=== PATIENT | female | born 1945 | race Caucasian/White ===

== ENCOUNTER 2016-06-24 14:47 | Emergency (ER) | payer MEDICARE, BC ==
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
--- NOTE | 2016-06-24 19:59 | RAD ---
INDICATION: Fall onto face. COMPARISON: Comparison is made with a prior CT of the brain from April 14, 2016. TECHNIQUE: Contiguous axial sections of the brain were obtained from the skull base to the vertex without contrast. FINDINGS: The ventricles, cisterns and sulci are enlarged consistent with diffuse atrophy. There are multiple focal areas of decreased density in the subcortical and periventricular white matter suggestive of moderate chronic small vessel ischemic changes. In addition there appear to be findings consistent with old lacunar infarcts within the right lentiform nucleus. No other focal abnormalities or mass effect are seen. There is no evidence for hemorrhage. No significant focal osseous abnormality is seen. The visualized portion of the paranasal sinuses and mastoid air cells appear clear. IMPRESSION: 1. NO EVIDENCE FOR ACUTE INTRACRANIAL ABNORMALITY. 2. 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
--- NOTE | 2016-06-24 20:09 | RAD ---
INDICATION: Facial trauma. COMPARISON: There are no prior studies available for comparison. TECHNIQUE: Contiguous axial sections of the axial images of the facial bones were obtained and reconstructed in the coronal and sagittal planes. FINDINGS: Soft tissue swelling is noted anterior to the right frontal bone, nose, maxilla and mandible. The montez of the orbits and maxillary sinuses appear intact. The zygomatic arches appear intact. There is no evidence for a fracture of the mandible. There are small chip fracture fragments adjacent to the tips of the nasal bones, age indeterminate. These measure 1 to 2 mm in size. There is mild to moderate deviation of the nasal septum toward the left side. The pterygoid plates appear intact. There is mild mucosal thickening within the maxillary sinuses. The paranasal sinuses otherwise appear clear. IMPRESSION: THERE ARE SMALL CHIP FRACTURE FRAGMENTS ADJACENT TO THE TIPS OF THE NASAL BONES AGE INDETERMINATE.
--- NOTE | 2016-06-24 20:55 | RAD ---
INDICATION: Left hip injury. COMPARISON: Comparison is made with a prior x-ray study of the pelvis from July 12, 2015. TECHNIQUE: An AP view of the pelvis and frontal and lateral views of the left hip were obtained. FINDINGS: The bones are in normal alignment. No fracture is seen. There is mild to moderate osteoarthritic change in both hips. IMPRESSION: NO EVIDENCE FOR FRACTURE, IF THE PATIENT'S SYMPTOMS PERSIST RECOMMEND FOLLOW-UP IMAGING.
--- NOTE | 2016-06-24 20:56 | RAD ---
INDICATION: Left shoulder injury. TECHNIQUE: 3 views of the left shoulder were obtained. FINDINGS: The bones are osteopenic and in normal alignment. No fracture is seen. There is mild to moderate osteoarthritic change in the acromioclavicular and glenohumeral joint spaces. IMPRESSION: NO EVIDENCE OF FRACTURE.
[2016-06-24 21:43] VITALS: BP 158/87
== END 2016-06-24 21:41 | disposition home or self-care (01) ==
LOC: ED 14:47
DX: S09.90XA Unspecified injury of head, initial encounter (principal); S09.93XA Unspecified injury of face, initial encounter; M25.552 Pain in left hip; M25.512 Pain in left shoulder; W18.09XA Striking against other object with subsequent fall, initial encounter; Y92.9 Unspecified place or not applicable; E03.9 Hypothyroidism, unspecified; Z88.5 Allergy status to narcotic agent; Z86.718 Personal history of other venous thrombosis and embolism; Z79.01 Long term (current) use of anticoagulants; K21.9 Gastro-esophageal reflux disease without esophagitis; Z99.81 Dependence on supplemental oxygen; I12.9 Hypertensive chronic kidney disease with stage 1 through stage 4 chronic kidney disease, or unspecified chronic kidney disease; E11.22 Type 2 diabetes mellitus with diabetic chronic kidney disease; N18.3 Chronic kidney disease, stage 3 (moderate); F41.9 Anxiety disorder, unspecified; F32.9 Major depressive disorder, single episode, unspecified; Z85.3 Personal history of malignant neoplasm of breast; Z87.891 Personal history of nicotine dependence
CPT/HCPCS: 70450; 70486; 99282

== ENCOUNTER 2016-08-21 11:19 | Emergency (ER) | payer MEDICARE ==
[2016-08-21] MEDS ORDERED: NS 0.9% 1000 ML* 3,000 ML IV ONE (11:51)
[2016-08-21] MEDS ORDERED: Ondansetron INJ* 2 MG/ML VIAL IV ONE (11:51)
[2016-08-21 12:15] LABS: Hematocrit 33 % (35-47); Hemoglobin 10.9 g/dl (12.0-16.0); Mean Corpuscular HGB Conc 33 g/dl (31-36); Mean Corpuscular Hemoglobin 27 pg (27-31); Mean Corpuscular Volume 83 fL (80-97); Mean Platelet Volume 8 um3 (7.4-10.4); Red Cell Distribution Width 14 % (10.5-15); White Blood Count 9.1 10^3/ul (3.5-10.8)
[2016-08-21 12:26] LABS: Albumin 3.5 g/dL (3.2-5.2); BUN/Creatinine Ratio 24.6 (8-20); C Reactive Protein 16.09 mg/L (< 5.00); Calcium 9.7 mg/dL (8.6-10.3); EGFR African American 46.8 (>60); EGFR Non-African American 36.4 (>60); Globulin 3.5 g/dL (2-4); Total Bilirubin 0.3 mg/dL (0.2-1.0)
[2016-08-21 12:41] LABS: Potassium 4.2 mmol/L (3.5-5.0)
[2016-08-21] MEDS ORDERED: Iodixanol* (CONTRAST) 320 MG/ML 100 ML SDV IV ONE (13:20)
[2016-08-21 13:45] VITALS: BP 170/69
--- NOTE | 2016-08-21 13:55 | RAD ---
INDICATION: Abdominal pain, vomiting and diarrhea. COMPARISON: Comparison is made with a prior CT of the abdomen and pelvis from April 14, 2016. TECHNIQUE: A CT scan of the abdomen and pelvis was performed with intravenous and oral contrast following intravenous injection of 100 ml of Visipaque 320 nonionic contrast. Contiguous axial sections were obtained from the lung bases through the symphysis pubis. Images were reconstructed in the coronal and sagittal planes. FINDINGS: There is mild dependent bilateral lower lobe subsegmental atelectasis. No pleural effusion is present. The liver and spleen are normal in size without significant focal abnormality. The liver is decreased in attenuation consistent with fatty infiltration. The patient is status post cholecystectomy. The pancreas appears atrophic. There is a small cystic lesion present within the uncinate process of the pancreas measuring 1.1 cm in diameter and unchanged from the prior study. The kidneys and adrenal glands are normal in size. No hydronephrosis is seen. No significant focal renal abnormality is seen. The aorta is normal in caliber and demonstrates homogeneous contrast opacification. No significant enlarged retroperitoneal lymph nodes are seen. The stomach, small and large bowel appear nondistended. The patient is status post appendectomy by history. There is no evidence for diverticulitis or colitis. The uterus is anteverted and normal in size. No free intraperitoneal air or fluid is seen. No significant focal osseous abnormality is seen. IMPRESSION: 1. NO EVIDENCE FOR ACUTE FINDING OR CAUSE FOR THE PATIENT'S ABDOMINAL PAIN IS SEEN. 2. HEPATIC STEATOSIS. 3. STATUS POST CHOLECYSTECTOMY. 4. SMALL CYSTIC PANCREATIC LESION RECOMMEND A FOLLOW-UP CT OF THE ABDOMEN AND PELVIS WITH CONTRAST IN ONE YEAR'S TIME.
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
== END 2016-08-21 14:52 | disposition home or self-care (01) ==
LOC: ED 11:19
DX: K52.9 Noninfective gastroenteritis and colitis, unspecified (principal); R50.9 Fever, unspecified; R11.2 Nausea with vomiting, unspecified; R19.7 Diarrhea, unspecified; Z87.891 Personal history of nicotine dependence
CPT/HCPCS: 36415; 74177; 80053; 82150; 83605; 83690; 85025; 86140; 93005; 96374; 99283; J2405; Q9967

== ENCOUNTER 2016-10-22 18:21 | Emergency (ER) | payer MEDICARE ==
[2016-10-22] MEDS ORDERED: NS 0.9% 1000 ML* 1,000 ML IV ONE ×2 (18:47→20:47)
[2016-10-22 18:54] LABS: Hematocrit 31 % (35-47); Hemoglobin 10.1 g/dl (12.0-16.0); Mean Corpuscular HGB Conc 33 g/dl (31-36); Mean Corpuscular Hemoglobin 28 pg (27-31); Mean Corpuscular Volume 84 fL (80-97); Mean Platelet Volume 8 um3 (7.4-10.4); Red Blood Count 3.62 10^6/ul (4.0-5.4); Red Cell Distribution Width 14 % (10.5-15); White Blood Count 7.7 10^3/ul (3.5-10.8)
[2016-10-22] MEDS ORDERED: Morphine INJ* 4 MG/ML 1 ML SYRINGE IV ONE (19:02)
[2016-10-22] MEDS ORDERED: Ondansetron INJ* 2 MG/ML VIAL IV ONE (19:02)
[2016-10-22 19:07] LABS: Albumin 3.7 g/dL (3.2-5.2); BUN/Creatinine Ratio 19.1 (8-20); C Reactive Protein 11.68 mg/L (< 5.00); Calcium 9.6 mg/dL (8.6-10.3); EGFR African American 41.6 (>60); EGFR Non-African American 32.4 (>60); Globulin 3.1 g/dL (2-4); Potassium 3.7 mmol/L (3.5-5.0); Total Bilirubin 0.3 mg/dL (0.2-1.0); Total Protein 6.8 g/dL (6.4-8.9)
--- NOTE | 2016-10-22 19:42 | RAD ---
CLINICAL HISTORY: Flank pain, right flank pain COMPARISON: August 21, 2016 TECHNIQUE: Multiple contiguous axial CT scans were obtained of the abdomen and pelvis, without intravenous contrast enhancement. Coronal and sagittal multiplanar reformations are submitted for review. Additionally axial CT images are submitted of the lumbar spine with coronal and sagittal multiplanar reformations. FINDINGS: The study is limited by the lack of intravenous contrast. This limits evaluation of the solid organs and vasculature. LUNG BASES: The lung bases are clear. LIVER: The liver is normal in shape, size, contour, and attenuation. BILE DUCTS: There is no intrahepatic or extrahepatic biliary dilatation. GALLBLADDER: The gallbladder is not visualized. Surgical clips are noted in the gallbladder fossa. PANCREAS: Again noted is a small cystic lesion of the head of the pancreas. There is atrophy of the pancreas. There is no appreciable pancreatic ductal dilatation SPLEEN: Normal in size and appearance. UPPER GI TRACT: Evaluation of the gastrointestinal tract is limited by incomplete gastric distention. The upper GI tract is unremarkable. SMALL BOWEL AND MESENTERY: The small bowel is normal in contour, course, and caliber. There is no obstruction or dilatation. COLON: There are scattered diverticula of the colon ADRENALS: Normal bilaterally. KIDNEYS: There is a punctate, 0.2 cm calculus of the distal right ureter best seen on coronal image 73 and axial image 63. There is no appreciable hydronephrosis. BLADDER: The bladder is smooth in contour. PELVIC ORGANS: The uterus and adnexa are grossly normal for technique. AORTA: The aorta is normal. IVC: Unremarkable LYMPH NODES: There is no lymphadenopathy by size criteria. ABDOMINAL WALL: There is no evidence for abdominal wall hernia. BONES AND SOFT TISSUES: The alignment is normal. There is multilevel anterolateral marginal osteophyte formation. The vertebral bodies are preserved in height. There is diffuse facet hypertrophic change. There is mild to moderate multilevel neural foraminal narrowing. There is moderate narrowing of the central canal at L3-L4 and L4-L5 with mild narrowing at L2-L3 OTHER: None IMPRESSION: 1. PUNCTATE DISTAL RIGHT URETERAL STONE WITHOUT HYDRONEPHROSIS. 2. DEGENERATIVE DISC DISEASE AND OSTEOARTHRITIS. THERE IS MODERATE NARROWING OF THE CENTRAL CANAL AT L3-L4 AND L4-L5 WITH MILD NARROWING AT L2-L3. 3. AGAIN NOTED IS A SMALL CYSTIC LESION OF THE HEAD OF THE PANCREAS. 4. SCATTERED DIVERTICULA OF THE COLON.
[2016-10-22 21:04] LABS: Urine Bacteria Absent (Absent); Urine Bilirubin Negative (Negative); Urine Glucose 3+(>=500 mg/dL) (Negative); Urine Nitrite Negative (Negative)
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
--- NOTE | 2016-10-23 00:26 | ED ---
Darek Lopes Aidan, scribed for Aaron Oden on 10/22/16 at 2323 . Progress - Progress Note Progress Note: The patient's first lactic acid reading was 2.2 (high). Her second lacic acid reading was 1.3. Re-Evaluation - Re-Evaluation First Eval Re-Evaluation Time: 20:48 Change: Unchanged Comment: Lactic acid high. Will give 1L fluid and repeat lactic. Still waiting on UA. Course/Dx - Course Course Of Treatment: 70 yo female well appearing with right flank pain. has a non obstructing punctate stone on rt with a urinary tract infection. her initial lactic acid was mildly elevated with no wbc, or abnormal vital signs. She is being hydrated and antibiotics are being infused and a 2nd lactic acid will be drawn, her pain was easily managed with low dose morphine. the plan is for discharge if her repeat lactic acid is normal and she will go with percocet and cipro at her pharmacy. If her condition worsens or her lactic acid remains elevated she will be admitted. the case has been discussed with Dr. Pillai and the patient has been signed out to Dr. Oden - Diagnoses Provider Diagnoses: UTI (urinary tract infection), Kidney stone on right side The documentation as recorded by the Darek khan Aidan accurately reflects the service I personally performed and the decisions made by Akshat funez Emmanuel.
[2016-10-23 03:38] VITALS: BP 183/93
== END 2016-10-23 01:00 ==
LOC: ED 18:21
DX: N20.0 Calculus of kidney (principal); N39.0 Urinary tract infection, site not specified
CPT/HCPCS: 36415; 72131; 74176; 80053; 81003; 81015; 83605; 83690; 85025; 86140; 87086; 93005; 96374; 96375; 99283; J0696; J2270; J2405

== ENCOUNTER → 2016-10-29 17:54 | Emergency (ER) | payer MEDICARE ==
[~2016-10-29 17:54] MED LIST: Insulin LISPRO* 1 UNITS UNIT SUBCUT ONE; Insulin NPH(*) 1 UNITS UNIT SUBCUT ONE; oxyCODONE/Acetamin 5/325 MG* TAB PO ONE
[2016-10-29 19:33] VITALS: BP 154/72
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
== END | disposition home or self-care (01) ==
LOC: ED 17:54
DX: N20.1 Calculus of ureter (principal); R10.84 Generalized abdominal pain; R30.0 Dysuria; Z87.891 Personal history of nicotine dependence
CPT/HCPCS: 99282; A9270-GY

== ENCOUNTER 2017-01-09 23:36 | Emergency (ER) | payer MEDICARE ==
[2017-01-10 00:35] LABS: Hematocrit 32 % (35-47); Hemoglobin 10.7 g/dl (12.0-16.0); Mean Corpuscular HGB Conc 33 g/dl (31-36); Mean Corpuscular Hemoglobin 29 pg (27-31); Mean Corpuscular Volume 88 fL (80-97); Mean Platelet Volume 8 um3 (7.4-10.4); Red Blood Count 3.69 10^6/ul (4.0-5.4); Red Cell Distribution Width 15 % (10.5-15); White Blood Count 8.4 10^3/ul (3.5-10.8)
[2017-01-10 00:46] LABS: BUN/Creatinine Ratio 19.1 (8-20); Calcium 9.9 mg/dL (8.6-10.3); EGFR African American 34.8 (>60); EGFR Non-African American 27.1 (>60); Globulin 3.1 g/dL (2-4); Potassium 3.9 mmol/L (3.5-5.0); Total Bilirubin 0.3 mg/dL (0.2-1.0); Total Protein 7.1 g/dL (6.4-8.9)
[2017-01-10 00:47] LABS: Troponin I 0.02 ng/mL (<0.04)
[2017-01-10] MEDS: NS 0.9% 1000 ML* 2,000 ML IV ONE ×2 (00:47→00:48)
[2017-01-10] MEDS ORDERED: Insulin REGULAR(*) 1 UNITS UNIT IV PUSH ONE (00:54)
[2017-01-10] MEDS ORDERED: NS 0.9% 1000 ML* 1,000 ML IV ONE (00:55)
[2017-01-10 01:08] LABS: TSH (Thyroid Stimulating Horm) 3.79 mcIU/mL (0.34-5.60)
[2017-01-10 02:13] LABS: Budding Yeast Present (Absent); Urine Bacteria Absent (Absent); Urine Bilirubin Negative (Negative); Urine Glucose 3+(>=500 mg/dL) (Negative); Urine Nitrite Negative (Negative)
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
[2017-01-10] MEDS ORDERED: oxyCODONE/Acetamin 5/325 MG* TAB PO ONE (06:18)
[2017-01-10 06:46] VITALS: BP 166/150
--- NOTE | 2017-01-10 07:58 | RAD ---
Indication: Syncope; fall. Comparison: October 22, [address] and April 17, 2016 chest radiograph. Technique: Upright AP 0020 hours Report: Accounting for large body habitus with superimposed soft tissues the lungs and pleural spaces are grossly clear. Negative for pneumothorax. Negative for cardiomegaly accounting for portable AP technique. Unremarkable central pulmonary vasculature and mediastinal contours. IMPRESSION: No evidence for acute intrathoracic disease.
--- NOTE | 2017-01-10 08:01 | RAD ---
Indication: Syncope. Anticoagulated. Comparison: June 24, 2016 CT. Technique: Noncontrast CT vertex of skull through foramen magnum. Report: Severe prominence of the cerebral sulci and moderate prominence of the cerebellar fissures reflecting atrophy. Proportional enlargement of the ventricles. Unremarkable basal cisterns. Decreased density in the periventricular and subcortical white matter while non-specific is most likely due to chronic microangiopathy. Negative for kent matter white matter obscuration, intra or extra-axial hemorrhage, or mass effect. The visualized orbits are without evidence for hematoma. Negative for calvarial or skull base fracture. Clear visualized paranasal sinuses and mastoid air spaces. Negative for scalp hematoma. IMPRESSION: 1. No evidence for traumatic brain injury or acute intracranial process. 2. Advanced involutional change and stigmata of chronic small vessel ischemic disease.
--- NOTE | 2017-01-10 08:03 | RAD ---
Indication: RIGHT hip pain post fall. Dizziness. Comparison: June 24, 2016 Technique: AP pelvis and AP and frog-leg lateral views RIGHT hip. Report: The RIGHT hip is normally located. No fracture of the RIGHT proximal femur or pelvis evident. Negative for pelvic joint diastases. Mild osteophytic lipping at the hips without significant joint space narrowing. Unremarkable soft tissue contours accounting for obese body habitus. IMPRESSION: 1. No radiographic evidence for RIGHT hip fracture. As x-rays may be negative with nondisplaced hip fracture if there is persistent clinical concern MRI or in setting of contraindication to MRI or limitation in emergent access to MRI CT would be suggested. 2. 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
== END 2017-01-10 06:45 | disposition home or self-care (01) ==
LOC: ED 23:36
DX: E11.65 Type 2 diabetes mellitus with hyperglycemia (principal); S00.93XA Contusion of unspecified part of head, initial encounter; S70.01XA Contusion of right hip, initial encounter; W19.XXXA Unspecified fall, initial encounter; Z91.81 History of falling; Y93.9 Activity, unspecified; Y92.9 Unspecified place or not applicable; E03.9 Hypothyroidism, unspecified; I10 Essential (primary) hypertension; J45.909 Unspecified asthma, uncomplicated; K21.9 Gastro-esophageal reflux disease without esophagitis; F41.9 Anxiety disorder, unspecified; F32.9 Major depressive disorder, single episode, unspecified; Z86.718 Personal history of other venous thrombosis and embolism; Z87.891 Personal history of nicotine dependence
CPT/HCPCS: 36415; 70450; 71010; 80053; 81003; 81015; 82550; 83605; 83735; 84443; 84484; 85025; 85610; 85730; 87086; 87106; 93005; 96360; 96361; 99283; A9270-GY

== ENCOUNTER 2017-01-12 16:23 | Emergency (ER) | payer MEDICARE ==
[2017-01-12] MEDS ORDERED: NS 0.9% 1000 ML* 1,000 ML IV SCH (16:45)
[2017-01-12 16:49] LABS: Hematocrit 30 % (35-47); Hemoglobin 10.2 g/dl (12.0-16.0); Mean Corpuscular HGB Conc 34 g/dl (31-36); Mean Corpuscular Hemoglobin 29 pg (27-31); Mean Corpuscular Volume 87 fL (80-97); Mean Platelet Volume 7 um3 (7.4-10.4); Red Blood Count 3.51 10^6/ul (4.0-5.4); Red Cell Distribution Width 15 % (10.5-15); White Blood Count 8.7 10^3/ul (3.5-10.8)
[2017-01-12 17:05] LABS: Troponin I 0.03 ng/mL (<0.04)
[2017-01-12 17:06] LABS: Albumin 3.3 g/dL (3.2-5.2); BUN/Creatinine Ratio 19.8 (8-20); C Reactive Protein 23.95 mg/L (< 5.00); Calcium 9.8 mg/dL (8.6-10.3); EGFR African American 53.5 (>60); EGFR Non-African American 41.6 (>60); Globulin 3.1 g/dL (2-4); Magnesium 1.5 mg/dL (1.9-2.7); Potassium 3.7 mmol/L (3.5-5.0); Total Bilirubin 0.5 mg/dL (0.2-1.0); Total Protein 6.4 g/dL (6.4-8.9)
--- NOTE | 2017-01-12 17:32 | RAD ---
HISTORY: Weakness COMPARISONS: January 09, 2017 VIEWS:1: Single frontal portable view of the chest at 4:54 PM FINDINGS: LINES AND TUBES: None. CARDIOMEDIASTINAL SILHOUETTE: The cardiomediastinal silhouette is normal for portable technique. PLEURA: The costophrenic angles are sharp. No pleural abnormalities are noted. LUNG PARENCHYMA: The lungs are clear. ABDOMEN: The upper abdomen is clear. There is no subphrenic gas. BONES AND SOFT TISSUES: Degenerative changes are noted of the spine IMPRESSION: NO ACTIVE CARDIOPULMONARY DISEASE.
--- NOTE | 2017-01-12 17:34 | RAD ---
HISTORY: Weakness, dizziness, syncope, left great toe injury and redness COMPARISONS: January 09, 2017 VIEWS: 3, Frontal, lateral, and oblique views of the left foot FINDINGS: BONE DENSITY: There is diffuse osteopenia. BONES: There are faint linear lucencies of the proximal phalanges of the first and second digits There are calcaneal enthesophytes. JOINTS: There is mild osteoarthritis of the midfoot and forefoot ALIGNMENT: There is no dislocation. SOFT TISSUES: Unremarkable. OTHER FINDINGS: None. IMPRESSION: OSTEOPENIA. QUESTIONABLE NONDISPLACED FRACTURES OF THE PROXIMAL PHALANGES OF THE FIRST AND SECOND DIGITS.
[2017-01-12 17:36] LABS: TSH (Thyroid Stimulating Horm) 3.84 mcIU/mL (0.34-5.60)
[2017-01-12] MEDS ORDERED: Insulin REGULAR(*) 1 UNITS UNIT SUBCUT ONE (19:22)
[2017-01-12] MEDS ORDERED: cloNIDine TAB* 0.1 MG PO ONE (19:58)
[2017-01-12] MEDS ORDERED: cloNIDine TAB* 0.1 MG ONE (20:01)
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
[2017-01-12] MEDS ORDERED: Acetaminophen TAB* 325 MG PO ONE (22:33)
[2017-01-12 23:23] LABS: Budding Yeast Present (Absent); Urine Bacteria Absent (Absent); Urine Bilirubin Negative (Negative); Urine Glucose 3+(>=500 mg/dL) (Negative); Urine Nitrite Negative (Negative)
[2017-01-12] MEDS ORDERED: Levofloxacin 250 MG IVPREMX(*) 250 MG/50 ML BAG IVPB ONE (23:34)
[2017-01-13] MEDS ORDERED: oxyCODONE/Acetamin 5/325 MG* TAB PO ONE (01:14)
[2017-01-13 01:16] VITALS: BP 164/78
== END 2017-01-13 01:20 | disposition home or self-care (01) ==
LOC: ED 16:23
DX: N39.0 Urinary tract infection, site not specified (principal); I10 Essential (primary) hypertension; Z87.891 Personal history of nicotine dependence
CPT/HCPCS: 36415; 71010; 80053; 81003; 81015; 83605; 83690; 83735; 83880; 84443; 84484; 85025; 85610; 85730; 86140; 87040; 87086; 96360; 99284; A9270-GY; J1956

== ENCOUNTER → 2017-01-16 | Emergency (ER) | payer MEDICARE ==
[~2017-01-16] MED LIST changes: +Acetaminophen SUPP* 650 MG SUPP PR ONE; -Insulin LISPRO* 1 UNITS UNIT SUBCUT ONE; -Insulin NPH(*) 1 UNITS UNIT SUBCUT ONE; +Insulin REGULAR(*) 1 UNITS UNIT SUBCUT ONE; +LORazepam INJ* 2 MG/ML 1 ML VIAL IM ONE; +LORazepam INJ* 2 MG/ML 1 ML VIAL ONE; +NS 0.9% 1000 ML* 3,000 ML IV ONE; +NS 0.9% 250 ML* 250 ML ONE; +Propofol* 10 MG/ML 20 ML BTL IV PUSH ONE; +Propofol* 100 ML ONE; +Propofol* 500 MG/50 ML BTL IV SCH; +Succinylcholine* 20 MG/ML 10 ML VIAL IV ONE; +Vancomycin(*) 1,250 MG in NS 0.9% 250 ML* 250 ML IVPB ONE; +fentaNYL PCA* 20 ML PCA ONE; +fentaNYL* 50 MCG/ML 2 ML VIAL (100 MCG VIAL) IV SLOW PU ONE; -oxyCODONE/Acetamin 5/325 MG* TAB PO ONE
[2017-01-16 05:54] LABS: Hematocrit 34 % (35-47); Hemoglobin 11.2 g/dl (12.0-16.0); Mean Corpuscular HGB Conc 33 g/dl (31-36); Mean Corpuscular Hemoglobin 29 pg (27-31); Mean Corpuscular Volume 87 fL (80-97); Mean Platelet Volume 8 um3 (7.4-10.4); Red Blood Count 3.85 10^6/ul (4.0-5.4); Red Cell Distribution Width 15 % (10.5-15); White Blood Count 16.9 10^3/ul (3.5-10.8)
[2017-01-16 06:06] LABS: ALT 20 U/L (7-52); Albumin 3.7 g/dL (3.2-5.2); Alkaline Phosphatase 89 U/L (34-104); Blood Urea Nitrogen 29 mg/dL (6-24); CO2 Carbon Dioxide 24 mmol/L (22-32); Calcium 9.7 mg/dL (8.6-10.3); Chloride 97 mmol/L (101-111); Creatine Kinase 507 U/L (10-223); EGFR African American 42.8 (>60); EGFR Non-African American 33.3 (>60); Globulin 3.5 g/dL (2-4); Glucose 305 mg/dL (70-100); Magnesium 1.5 mg/dL (1.9-2.7); Sodium 133 mmol/L (133-145); Total Protein 7.2 g/dL (6.4-8.9)
[2017-01-16 06:16] LABS: TSH (Thyroid Stimulating Horm) 5.11 mcIU/mL (0.34-5.60)
[2017-01-16 06:26] LABS: Troponin I 0.04 ng/mL (<0.04)
[2017-01-16 06:27] LABS: Anion Gap 12 mmol/L (2-11)
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
[2017-01-16 07:04] LABS: Budding Yeast Present (Absent); Urine Bacteria Absent (Absent); Urine Bilirubin Negative (Negative); Urine Glucose 3+(>=500 mg/dL) (Negative); Urine Nitrite Negative (Negative)
--- NOTE | 2017-01-16 08:10 | RAD ---
HISTORY: Fever COMPARISONS: January 12, 2017 VIEWS:1: Single frontal portable view of the chest at 7:10 AM FINDINGS: LINES AND TUBES: None. CARDIOMEDIASTINAL SILHOUETTE: The cardiomediastinal silhouette is normal for portable technique. PLEURA: The costophrenic angles are sharp. No pleural abnormalities are noted. LUNG PARENCHYMA: There is patchy alveolar opacification of the right lung base at the cardiophrenic angle. ABDOMEN: The upper abdomen is clear. There is no subphrenic gas. BONES AND SOFT TISSUES: No bone or soft tissue abnormalities are noted. IMPRESSION: PATCHY RIGHT BASILAR ATELECTASIS VERSUS EARLY CONSOLIDATION
[2017-01-16 08:11] LABS: Alcohol < 10 mg/dL (<10)
--- NOTE | 2017-01-16 08:18 | RAD ---
HISTORY: Altered mental status, head injury COMPARISONS: January 10, 2017 Liver: The liver some of the subcortical and the pull-through the TECHNIQUE: Multiple contiguous axial CT scans were obtained of the head without intravenous contrast. FINDINGS: HEMORRHAGE/INFARCT: There is a small focus of hyperattenuation along a sulcus of the medial parafalcine left frontal lobe best seen on axial image 13 of series 2. Elsewhere, there is no hemorrhage or acute infarct. MASSES/SHIFT: There is no mass or shift. EXTRA-AXIAL SPACES: As noted above, there is minimal possible subarachnoid hemorrhage of the left frontal lobe. SULCI AND VENTRICLES: There is diffuse and proportional enlargement of the sulci and ventricles. CEREBRUM: There is hypoattenuation of the periventricular and subcortical white matter. BRAINSTEM: There are no focal parenchymal abnormalities. CEREBELLUM: There are no focal parenchymal abnormalities. VESSELS: The vessels are grossly normal. PARANASAL SINUSES: There is an air-fluid level within the left maxillary sinus. ORBITS: The orbits are unremarkable. BONES AND SOFT TISSUE: There is soft tissue swelling along the left parietal scalp. OTHER: None IMPRESSION: 1. THERE IS SMALL FOCUS OF HYPERATTENUATION ALONG THE LEFT MEDIAL FRONTAL LOBE. GIVEN THE HISTORY OF TRAUMA, THIS MAY REPRESENT A TINY FOCUS OF SUBARACHNOID HEMORRHAGE. THIS IS NONANEURYSMAL IN PATTERN.. 2. DIFFUSE INVOLUTIONAL CHANGE WITH CHRONIC SMALL VESSEL ISCHEMIC CHANGES. PRELIMINARY FINDINGS WERE DISCUSSED WITH DR. BELL IN THE EMERGENCY DEPARTMENT AT APPROXIMATELY 8:13 AM ON JANUARY 16, 2017.
[2017-01-16 08:20] LABS: Venous Bicarbonate HCO3 25.3 mmol/L (24-28)
--- NOTE | 2017-01-16 08:40 | RAD ---
CLINICAL HISTORY: Fall, bleed, altered mental status, ecchymosis of the left hip, sepsis COMPARISON: October 22, 2016 TECHNIQUE: Multiple contiguous axial CT scans were obtained of the abdomen and pelvis, without intravenous contrast enhancement. Coronal and sagittal multiplanar reformations are submitted for review. Oral contrast was not administered. FINDINGS: The study is limited by the lack of intravenous contrast. This limits evaluation of the solid organs and vasculature. LUNG BASES: The lung bases are clear. LIVER: There is heterogeneous hypoattenuation of the inferior margin of the right lobe of liver. This is not clearly visualized on the previous examination. This is best seen on coronal image 39 and measures approximately 3.2 cm in size. BILE DUCTS: There is no intrahepatic or extrahepatic biliary dilatation. GALLBLADDER: The gallbladder is not visualized. Surgical clips are noted in the gallbladder fossa. PANCREAS: The pancreas is atrophic. Again noted is a small cystic lesion of the head of the pancreas, stable SPLEEN: Normal in size and appearance. UPPER GI TRACT: Evaluation of the gastrointestinal tract is limited by incomplete gastric distention. There is a small diverticulum of the second stage of the duodenum. SMALL BOWEL AND MESENTERY: The small bowel is normal in contour, course, and caliber. There is no obstruction or dilatation. COLON: The colon is normal in contour, course, caliber. There is no pericolonic inflammatory change. ADRENALS: Normal bilaterally. KIDNEYS: The kidneys are normal in shape, size, contour, and axis. There is no hydronephrosis or nephrolithiasis. BLADDER: The bladder is smooth in contour. PELVIC ORGANS: The uterus and adnexa are grossly normal for technique. AORTA: The aorta is normal. IVC: Unremarkable LYMPH NODES: There is no lymphadenopathy by size criteria. ABDOMINAL WALL: There is no evidence for abdominal wall hernia. BONES AND SOFT TISSUES: There is osteoarthritis of the hips and SI joints. Degenerative changes are noted of the spine. There is a nondisplaced fracture of the left transverse process of L3. There is diffuse edema of the proximal left thigh OTHER: None IMPRESSION: 1. NONDISPLACED FRACTURE OF THE LEFT TRANSVERSE PROCESS OF L3. 2. THERE IS HYPOATTENUATION OF THE INFERIOR MARGIN OF THE RIGHT LOBE OF LIVER, NOT CLEARLY SEEN ON THE PREVIOUS EXAMINATION. THE IMAGING APPEARANCE IS INDETERMINATE, THOUGH HEPATIC NEOPLASM IS WITHIN THE DIFFERENTIAL. RECOMMEND CONSIDERATION OF FURTHER EVALUATION WITH CONTRAST-ENHANCED MULTIPHASE LIVER PROTOCOL CT OR CONTRAST-ENHANCED MRI OF THE ABDOMEN IN THE NONACUTE SETTING.
--- NOTE | 2017-01-16 08:52 | RAD ---
HISTORY: Fall, bleed, altered mental status COMPARISONS: July 12, 2015 TECHNIQUE: Multiple contiguous axial CT scans were obtained of the cervical spine without intravenous contrast, with coronal and sagittal multiplanar reformations. FINDINGS: BRAIN: The visualized brain is unremarkable CENTRAL CANAL: Evaluation of the central canal is limited on CT technique; however, there is no obvious canalicular mass or epidural hemorrhage. ALIGNMENT: The alignment is normal, without subluxation or dislocation. 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 There is no displaced fracture. There is multilevel anterolateral marginal osteophyte formation. JOINTS: There is osteoarthritis of the uncovertebral and facet joints. MUSCULATURE: Unremarkable INTERVERTEBRAL DISCS: There is diffuse loss of intervertebral disc height. AXIAL IMAGES: C2-C3: There is partial fusion across the facet joints. There is no osseous neural foraminal or central canal stenosis. C3-C4: There is bilateral vertebral and facet hypertrophy. There is severe left and moderate right neural foraminal narrowing. There is mild narrowing of the central canal. C4-C5: There is a broad-based disc bulge. There is mild narrowing of the central canal. There is no osseous neural foraminal narrowing. C5-C6: There is bilateral uncovertebral and facet hypertrophy. There is moderate left and mild right neural foraminal narrowing. There is no osseous central canal stenosis. C6-C7: There is a broad-based disc osteophyte complex with right greater than left uncovertebral hypertrophy. There is mild bilateral neural foraminal narrowing. There is moderate narrowing of the central canal. C7-T1: There is bilateral facet hypertrophy. There is mild bilateral neural foraminal narrowing. There is no osseous central canal stenosis. SOFT TISSUES: The visualized soft tissues of the neck are unremarkable. The prevertebral fat stripe is preserved. OTHER: None. IMPRESSION: 1. DEGENERATIVE DISC DISEASE AND OSTEOARTHRITIS NOTED ABOVE. 2. NO ACUTE OSSEOUS INJURY TO THE CERVICAL SPINE.
[2017-01-16] MEDS: Vancomycin(*) 1,500 MG in NS 0.9% 250 ML* 250 ML IVPB ONE ×2 (10:04→10:38)
--- NOTE | 2017-01-16 10:25 | RAD ---
HISTORY: Status post intubation COMPARISONS: January 16, 2017 at 7:10 AM VIEWS:1: Single frontal portable view of the chest at 10:10 AM FINDINGS: LINES AND TUBES: The endotracheal tube is noted with the tip overlying the trachea just proximal to the clavicles. CARDIOMEDIASTINAL SILHOUETTE: The cardiomediastinal silhouette is normal for portable technique. PLEURA: The costophrenic angles are sharp. No pleural abnormalities are noted. LUNG PARENCHYMA: There is improved aeration of the right lung base. ABDOMEN: The upper abdomen is clear. There is no subphrenic gas. BONES AND SOFT TISSUES: No bone or soft tissue abnormalities are noted. IMPRESSION: LINES AND TUBES ABOVE. NO ACTIVE CARDIOPULMONARY DISEASE.
--- NOTE | 2017-01-16 11:35 | ED ---
Louie Lopes Alfonso, scribed for Blane Sauceda MD on 01/16/17 at 0821 . Progress - Progress Note Progress Note: This patient is a 71 year old F [facility] with [facility] She was found at her home agitated and screaming. Reevaluation at 0801: Fever. Dry oral mucosa. Large left hip ecchymosis. Feet are dirty. No FND. Patient is grunting. Patient is nonverbal. Per an admission at [facility] on 04/13/16 the patient is Full Code status. Dr. Phyllis Chaparro (Radiologist) called the ED at 0813 to follow up on a CT brain interpretation. Revaluated at 1010: The patient is comfortable on the ventilator. Asked respiratory to advance the tube. - Results/Orders Results/Orders: CXR reveals PATCHY RIGHT BASILAR ATELECTASIS VERSUS EARLY CONSOLIDATION. ED physician has reviewed this radiology report and agrees. CT Brain reveals [employer] FINDINGS: There is a very tiny 3 mm hyperdensity seen on a single slight () in the left anterior parafalcine cortex. It cannot be detected on either the June 24, 2016 and were on January 10 scan. Although it is very small, it needs to be considered tiny amount of subarachnoid blood or contusion until proven otherwise and a followup CT is recommended. No other evidence of hemorrhage. Chronic microvascular changes in the cerebral white matter. No visible acute infarct. Osseous structures are intact. ED physician has reviewed this radiology report and agrees. Dr. Chaparro IMPRESSION: 1. THERE IS SMALL FOCUS OF HYPERATTENUATION ALONG THE LEFT MEDIAL FRONTAL LOBE. GIVEN THE HISTORY OF TRAUMA, THIS MAY REPRESENT A TINY FOCUS OF SUBARACHNOID HEMORRHAGE. THIS IS NONANEURYSMAL IN PATTERN.. 2. DIFFUSE INVOLUTIONAL CHANGE WITH CHRONIC SMALL VESSEL ISCHEMIC CHANGES. ED physician has reviewed this radiology report and agrees. CT C-Spine reveals 1. DEGENERATIVE DISC DISEASE AND OSTEOARTHRITIS NOTED ABOVE. 2. NO ACUTE OSSEOUS INJURY TO THE CERVICAL SPINE. ED physician has reviewed this radiology report and agrees. CT A/P reveals 1. NONDISPLACED FRACTURE OF THE LEFT TRANSVERSE PROCESS OF L3. 2. THERE IS HYPOATTENUATION OF THE INFERIOR MARGIN OF THE RIGHT LOBE OF LIVER, NOT CLEARLY SEEN ON THE PREVIOUS EXAMINATION. THE IMAGING APPEARANCE IS INDETERMINATE, THOUGH HEPATIC NEOPLASM IS WITHIN THE DIFFERENTIAL. RECOMMEND CONSIDERATION OF FURTHER EVALUATION WITH CONTRAST-ENHANCED MULTIPHASE LIVER PROTOCOL CT OR CONTRAST-ENHANCED MRI OF THE ABDOMEN IN THE NONACUTE SETTING. ED physician has reviewed this radiology report and agrees. CXR reveals LINES AND TUBES: The endotracheal tube is noted with the tip overlying the trachea just proximal to the clavicles. CARDIOMEDIASTINAL SILHOUETTE: The cardiomediastinal silhouette is normal for portable technique. PLEURA: The costophrenic angles are sharp. No pleural abnormalities are noted. LUNG PARENCHYMA: There is improved aeration of the right lung base. ABDOMEN: The upper abdomen is clear. There is no subphrenic gas. BONES AND SOFT TISSUES: No bone or soft tissue abnormalities are noted. IMPRESSION: LINES AND TUBES ABOVE. NO ACTIVE CARDIOPULMONARY DISEASE. ED physician has reviewed this radiology report and agrees. Re-Evaluation - Re-Evaluation First Eval Re-Evaluation Time: 08:01 Comment: Fever. Dry oral mucosa. Large left hip ecchymosis. Feet are dirty. No FND. Patient is grunting. Patient is nonverbal. Per an admission at [facility] on 04/13 the patient is Full Code status. Second Eval Re-Evaluation Time: 10:10 Comment: The patient is comfortable on the ventilator. Asked respiratory to advance the tube. Third Eval Comment: Reviewed notes from previous visit regarding foot injury. No signs of infection at toes and feet. Course/Dx - Course Course Of Treatment: Intended to do a LP. While preparing for the procedure, a CT A/P result revealed NONDISPLACED FRACTURE OF THE LEFT TRANSVERSE PROCESS OF L3. Therefore, an LP will not be performed at this time. Left voicemail with the family. Her landlord called the ED statint the patient has been medication noncompliant. Informed the landlord of plan for transfer. - Diagnoses Provider Diagnoses: Intracranial hemorrhage, Fracture of lumbar spine, Sepsis, rule out meningitis , Rule out DKA - Provider Notifications Discussed Care Of Patient With: Mauricio Chaparro Time Discussed With Above Provider: 08:13 Instructed by Provider To: Other - Dr. Phyllis Chaparro (Radiologist) called the ED at 0813 to follow up on a CT brain interpretation. Consulted Ronak Jennings MD (ICU at [facility]) who accepts patient for transfer. - Critical Care Time Critical Care Time: 75-104 min - 90 minutes of Critical Care Time The documentation as recorded by the Louie khan Alfonso accurately reflects the service I personally performed and the decisions made by me, Blane Sauceda MD.
[2017-01-16 12:08] LABS: Benzodiazepine Urine Screen None Detected (None Detect)
[2017-01-16 12:18] VITALS: BP 184/80
== END | disposition short-term general hospital (02) ==
LOC: ED 03:25
DX: S06.309A Unspecified focal traumatic brain injury with loss of consciousness of unspecified duration, initial encounter (principal); W19.XXXA Unspecified fall, initial encounter; Y93.9 Activity, unspecified; Y92.9 Unspecified place or not applicable; S32.009A Unspecified fracture of unspecified lumbar vertebra, initial encounter for closed fracture; Z87.891 Personal history of nicotine dependence; A41.9 Sepsis, unspecified organism; E13.65 Other specified diabetes mellitus with hyperglycemia
CPT/HCPCS: 36415; 70450; 71010; 72125; 74176; 80053; 80307; 80320; 81003; 81015; 82010; 82140; 82550; 82803; 83605; 83735; 84443; 84484; 85025; 93005; 94002; 96372; 99285; A9270-GY; G0480; J0330; J2060; J2543; J2704; J3010; J3370

== ENCOUNTER 2017-02-03 02:34 | Inpatient (IN) | payer MEDICARE ==
[2017-02-03 03:22] LABS: Hematocrit 26 % (35-47); Hemoglobin 8.5 g/dl (12.0-16.0); Mean Corpuscular HGB Conc 33 g/dl (31-36); Mean Corpuscular Hemoglobin 30 pg (27-31); Mean Corpuscular Volume 91 fL (80-97); Mean Platelet Volume 8 um3 (7.4-10.4); Red Blood Count 2.88 10^6/ul (4.0-5.4); Red Cell Distribution Width 16 % (10.5-15); White Blood Count 18.8 10^3/ul (3.5-10.8)
[2017-02-03 03:34] LABS: ALT 24 U/L (7-52); AST 15 U/L (13-39); Albumin 3.6 g/dL (3.2-5.2); Alkaline Phosphatase 112 U/L (34-104); Anion Gap 6 mmol/L (2-11); BUN/Creatinine Ratio 14.3 (8-20); Blood Urea Nitrogen 29 mg/dL (6-24); CO2 Carbon Dioxide 29 mmol/L (22-32); Calcium 9.5 mg/dL (8.6-10.3); Chloride 98 mmol/L (101-111); EGFR African American 30.9 (>60); Globulin 3.5 g/dL (2-4); Glucose 213 mg/dL (70-100); Potassium 5.1 mmol/L (3.5-5.0); Sodium 133 mmol/L (133-145); Total Protein 7.1 g/dL (6.4-8.9)
[2017-02-03 03:35] LABS: Troponin I 0.01 ng/mL (<0.04)
[2017-02-03] MEDS ORDERED: Cefepime(*) 2 GM in NS 0.9% 50 ML* 50 ML IVPB ONE (04:03)
[2017-02-03] MEDS ORDERED: Vancomycin(*) 1,500 MG in NS 0.9% 250 ML* 250 ML IVPB ONE (04:03)
[2017-02-03] MEDS ORDERED: Levofloxacin 750 MG IVPREMIX(* 750 MG/150 ML BAG IVPB ONE (04:04)
[2017-02-03] MEDS ORDERED: NS 0.9% 1000 ML* 1,000 ML IV ONE (04:05)
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
[2017-02-03] MEDS ORDERED: Albuterol/Ipratropium NEB.SOL* Albuterol 2.5 MG/Ipratropium 0.5 MG 3 ML INH ONE (04:43)
--- NOTE | 2017-02-03 06:02 | HP ---
H&P (Free Text) History and Physical: PCP: Keiko Zurita Date/Time: 02/03/2017 0600 CC: SOB HPI: Mrs Montemayor is a 70YO female residing at [facility] who is highly tangential making her unable to provide a history. Several attempts to redirect her to the reason she presented each only yielded a response as to why she is so unhappy at [facility]. Per ED staff and the available medical record she was intubated in [facility] by Ammy Sauceda MD 01/13/2017 with a diagnosis of small subarachnoid hemorrhage and transferred to [facility] where reportedly and ICH was ruled out and she was transferred back to [facility]. Tonight she was found to be in significant respiratory distress and transferred for evaluation with finding of a large RLL infiltrate consistent with HCAP. ABX were initiated via IV vancomycin, cefepime, & levofloxacin. She is able to speak in complete sentences after being taken off 5L [place] oxygen with her saO2 taking 2-3 minutes to drop into the high-80s. She denies chest pain, palpitations, F/C, N/V/D, sweats, or other issues, but her reliability is questionable. PMedHx Nursing to reconcile. HX pulmonary emboli on apixaban DM2 HTN CKD stg 3 GERD PTSD depression chronic pain Ambulatory Orders Ascorbic Acid TAB* [Vitamin C TAB*] 500 mg PO BID 04/25/15 Levothyroxine TAB* [Synthroid 150 MCG TAB*] 200 mcg PO QAM 04/25/15 Losartan/HCTZ 100/25 (NF) [Hyzaar 100/25 (NF)] 1 tab PO DAILY 04/25/15 Omeprazole CAP* [Prilosec CAP* 20 MG] 20 mg PO DAILY 04/25/15 Potassium Chlor TAB* [Klor Con ER TAB 10 MEQ*] 10 meq PO DAILY 04/25/15 Venlafaxine EXT RELEASE CAP* [Effexor Xr CAP*] 150 mg PO DAILY 04/25/15 Sertraline* [Zoloft*] 50 mg PO DAILY #30 tab 07/23/15 Insulin Lispro Protamine & Lis [Humalog Mix 75/25 Kwikpen (75-25) 100 Unit/ml] 35 units SUBCUT BID AC 11/13/15 oxyCODONE/Acetamin 5/325 MG* [Percocet 5/325 TAB*] 1 tab PO Q6H PRN MDD 4 Apixaban* [Eliquis*] 5 mg PO BID #60 tab 11/20/15 Fluticasone NASAL SPRAY 50MCG* [Flonase NASAL SPRAY 50MCG*] 2 spray BOTH NARES DAILY 01/20/16 Multiple Vitamins W/ Minerals [Multivitamin Adults] 1 tab PO DAILY 01/20/16 Calcium 1 cap PO DAILY 04/14/16 Diphenoxylat/Atrop 2.5-0.025M* [Lomotil TAB*] 1 tab PO QID PRN 04/14/16 Lactobacillus [Probiotic] 1 cap PO DAILY 04/14/16 Vitamin B Complex 1 cap PO DAILY 04/14/16 Vitamin E 1 cap PO DAILY 04/14/16 Levofloxacin TAB* [Levaquin 250 Tab*] 250 mg PO Q24H #7 tab 04/19/16 Ondansetron ODT TAB* [Zofran 4 MG Odt TAB*] 4 mg PO Q8H PRN #20 tab.odt Ciprofloxacin TAB* [Cipro 500 MG TAB*] 500 mg PO BID #20 tab 10/22/16 oxyCODONE/Acetamin 5/325 MG* [Percocet 5/325 TAB*] 1 tab PO Q8H PRN #14 tab MDD 3 10/22/16 Levofloxacin TAB* [Levaquin TAB*] 500 mg PO DAILY #7 tab 10/23/16 oxyCODONE/Acetamin 5/325 MG* [Percocet 5/325 TAB*] 1 tab PO Q6H PRN #16 tab MDD 4 10/29/16 Atenolol TAB* [Tenormin TAB* 25 MG] 25 mg PO DAILY #30 tab 01/10/17 Fluconazole 150 MG (NF) [Diflucan 150 mg (NF)] 150 mg PO ONCE #1 tab 01/10/17 oxyCODONE/Acetamin 5/325 MG* [Percocet 5/325 TAB*] 1 tab PO Q6H PRN #20 tab MDD 4 01/10/17 Levofloxacin TAB* [Levaquin TAB*] 250 mg PO DAILY #7 tab 01/13/17 Allergies Hydrocodone [From Vicodin] Allergy (Verified 02/03/17 02:42) Rash Metformin Allergy (Verified 02/03/17 02:42) Itching SocHx: former smoker quit >25years ago, rare alcohol, denies recreational drugs ; resides currently at [facility] with her significant other/ex-; full code status FamHx: unobtainable ROS: as above, otherwise reviewed and all were negative vitals: Vital Signs Temp 37.7 C 02/03/17 02:44 Pulse 94 02/03/17 05:30 Resp 20 02/03/17 04:54 BP 144/61 02/03/17 05:30 Pulse Ox 89 02/03/17 05:30 Intake & Output 02/02/17 02/02/17 02/03/17 11:59 23:59 11:59 Intake Total 1150 Balance 1150 Weight 95.708 kg Intake: IV Fluids 1150 Constitutional: NAD, normally developed, obese white female HEENM: atraumatic; sclera/conjunctiva: non-icteric/clear; hearing: clinically intact; oropharynx: mucosa moist, clear Neck: soft tissue: no nuchal rigidity; thyroid: normal thyroid Pulmonary: diminished B w/ R > L scattered crackles, fair aeration, mild accessory muscle use CV: RR/RR, normal S1S2, no carotid bruit, no jugular venous distention, 2+ B DP/ PT, trace edema Abdominal: soft, non-distended, non-tender, no rebound/guarding/rigidity, normoactive bowel sounds, no hepatosplenomegaly or masses, no costovertebral angle tenderness Musculoskeletal: general: grossly intact, no palpable tenderness Integumental: normal appearance and texture of exposed skin Psychiatric orientation: AA & to PP only affect: anxious mood: cooperative eye contact: poor content: unreliable responses: timely insight: poor Testing: Lab Results 02/03/17 02/03/17 02/03/17 Range/Units 03:07 03:07 03:07 WBC 18.8 H (3.5-10.8) 10^3/ul RBC 2.88 L (4.0-5.4) 10^6/ul RBC (Retic) 2.95 L (4.6-6.2) 10^6/ul Hgb 8.5 L (12.0-16.0) g/dl Hct 26 L (35-47) % HCT (Retic) 27 L (35-47) % MCV 91 (80-97) fL MCH 30 (27-31) pg MCHC 33 (31-36) g/dl RDW 16 H (10.5-15) % Plt Count 356 (150-450) 10^3/ul MPV 8 (7.4-10.4) um3 Neut % (Auto) 89.3 H (38-83) % Lymph % (Auto) 5.2 L (25-47) % [place] % (Auto) 3.6 (1-9) % Eos % (Auto) 0.9 (0-6) % Baso % (Auto) 1.0 (0-2) % Absolute Neuts (auto) 16.8 H (1.5-7.7) 10^3/ul Absolute Lymphs (auto) 1.0 (1.0-4.8) 10^3/ul Absolute Monos (auto) 0.7 (0-0.8) 10^3/ul Absolute Eos (auto) 0.2 (0-0.6) 10^3/ul Absolute Basos (auto) 0.2 (0-0.2) 10^3/ul Absolute Nucleated RBC 0.01 10^3/ul Nucleated RBC % 0 Retic Count, Calc 2.7 H (0.5-1.5) % Corrected Retic Count 1.6 H (0.5-1.5) % Retic Shift Factor 2.0 Retic Production Index 0.80 Immature Retic Fraction 0.61 Mean Retic Volume 110.9 INR (Anticoag Therapy) 1.01 (0.89-1.11) APTT 27.1 (26.0-36.3) seconds Sodium (133-145) mmol/L Potassium (3.5-5.0) mmol/L Chloride (101-111) mmol/L Carbon Dioxide (22-32) mmol/L Anion Gap (2-11) mmol/L BUN (6-24) mg/dL Creatinine (0.51-0.95) mg/dL Est GFR ( Amer) (>60) Est GFR (Non-Af Amer) (>60) BUN/Creatinine Ratio (8-20) Glucose (70-100) mg/dL Lactic Acid (0.5-2.0) mmol/L Calcium (8.6-10.3) mg/dL Iron (50-212) ug/dL TIBC (250-450) mcg/dL % Saturation (15-55) % Unsat Iron Binding ug/dL Ferritin (11-307) ng/mL Total Bilirubin (0.2-1.0) mg/dL AST (13-39) U/L ALT (7-52) U/L Alkaline Phosphatase (34-104) U/L Lactate Dehydrogenase (140-271) U/L Troponin I (<0.04) ng/mL B-Natriuretic Peptide 357 H ( - 100) pg/mL Total Protein (6.4-8.9) g/dL Albumin (3.2-5.2) g/dL Globulin (2-4) g/dL Albumin/Globulin Ratio (1-3) Vitamin B12 (180-914) pg/mL Folate (>3.99) ng/mL 02/03/17 02/03/17 Range/Units 03:07 03:07 WBC (3.5-10.8) 10^3/ul RBC (4.0-5.4) 10^6/ul RBC (Retic) (4.6-6.2) 10^6/ul Hgb (12.0-16.0) g/dl Hct (35-47) % HCT (Retic) (35-47) % MCV (80-97) fL MCH (27-31) pg MCHC (31-36) g/dl RDW (10.5-15) % Plt Count (150-450) 10^3/ul MPV (7.4-10.4) um3 Neut % (Auto) (38-83) % Lymph % (Auto) (25-47) % [place] % (Auto) (1-9) % Eos % (Auto) (0-6) % Baso % (Auto) (0-2) % Absolute Neuts (auto) (1.5-7.7) 10^3/ul Absolute Lymphs (auto) (1.0-4.8) 10^3/ul Absolute Monos (auto) (0-0.8) 10^3/ul Absolute Eos (auto) (0-0.6) 10^3/ul Absolute Basos (auto) (0-0.2) 10^3/ul Absolute Nucleated RBC 10^3/ul Nucleated RBC % Retic Count, Calc (0.5-1.5) % Corrected Retic Count (0.5-1.5) % Retic Shift Factor Retic Production Index Immature Retic Fraction Mean Retic Volume INR (Anticoag Therapy) (0.89-1.11) APTT (26.0-36.3) seconds Sodium 133 (133-145) mmol/L Potassium 5.1 H (3.5-5.0) mmol/L Chloride 98 L (101-111) mmol/L Carbon Dioxide 29 (22-32) mmol/L Anion Gap 6 (2-11) mmol/L BUN 29 H (6-24) mg/dL Creatinine 2.03 H (0.51-0.95) mg/dL Est GFR ( Amer) 30.9 (>60) Est GFR (Non-Af Amer) 24.0 (>60) BUN/Creatinine Ratio 14.3 (8-20) Glucose 213 H (70-100) mg/dL Lactic Acid 1.3 (0.5-2.0) mmol/L Calcium 9.5 (8.6-10.3) mg/dL Iron 17 L (50-212) ug/dL TIBC 426 (250-450) mcg/dL % Saturation 4 L (15-55) % Unsat Iron Binding 409 ug/dL Ferritin 173.1 (11-307) ng/mL Total Bilirubin 0.50 (0.2-1.0) mg/dL AST 15 (13-39) U/L ALT 24 (7-52) U/L Alkaline Phosphatase 112 H (34-104) U/L Lactate Dehydrogenase 236 (140-271) U/L Troponin I 0.01 (<0.04) ng/mL B-Natriuretic Peptide ( - 100) pg/mL Total Protein 7.1 (6.4-8.9) g/dL Albumin 3.6 (3.2-5.2) g/dL Globulin 3.5 (2-4) g/dL Albumin/Globulin Ratio 1.0 (1-3) Vitamin B12 434 (180-914) pg/mL Folate > 20.00 (>3.99) ng/mL ECG, personally reviewed: NSR rate 91, no ischemia CXR, personally reviewed: prominent RLL infiltrate Impression: 71F presenting with sepsis 2nd HCAP DIAGNOSIS & PLAN Primary sepsis 2nd HCAP : IV vancomycin, cefepime, & levofloxacin : IVFs : blood, sputum, & urine CXs : supplemental oxygen : guaifenesin : supportive care worsening anemia : trend : stool for occult blood : type and screen LANE : baseline CKD stg 3 : IVFs, trend Secondary HX pulmonary emboli : hold apixaban until nature of her anemia is illuminated DM2 : update A1c : insulin carb ratio diet : basal/bolus/corretional insulin HTN : review meds once reconciled GERD : omeprazole PTSD : review meds once reconciled depression : review meds once reconciled chronic pain : review meds once reconciled Admission Rational: inpatient for sepsis 2nd HCAP requiring IVFs & IV ABX; inappropriate for outpatient setting based on high mortality risk DVTp: SCDs, no anticoagulation 2nd acute anemia Code Status: full HCP: Peewee Smith (at [facility])
[2017-02-03] MEDS ORDERED: CMC:Melatonin (NF) 3 MG TAB PO PRN (06:33)
[2017-02-03] MEDS ORDERED: Vancomycin per Pharmacy* NOTE FOLLOW UP SCH (07:00)
[2017-02-03 07:17] LABS: Corrected Retic Count 1.6 % (0.5-1.5); Immature Retic Fraction 0.61
[2017-02-03 07:24] LABS: Iron 17 ug/dL (50-212); Total Iron Binding Capacity 426 mcg/dL (250-450); Transferrin 304 mg/dL (203-362)
[2017-02-03 07:45] LABS: Ferritin 173.1 ng/mL (11-307)
[2017-02-03 07:49] LABS: Folate > 20.00 ng/mL (>3.99)
[2017-02-03 07:50] LABS: Vitamin B12 434 pg/mL (180-914)
--- NOTE | 2017-02-03 08:07 | RAD ---
HISTORY: Shortness of breath COMPARISONS: January 16, 2017 VIEWS: 1: frontal portable view of the chest at 3:10 AM FINDINGS: LINES AND TUBES: None. CARDIOMEDIASTINAL SILHOUETTE: The cardiomediastinal silhouette is normal for portable technique. PLEURA: The costophrenic angles are sharp. No pleural abnormalities are noted. LUNG PARENCHYMA: There is confluent alveolar opacification of the right mid and lower lung hannon ABDOMEN: The upper abdomen is clear. There is no subphrenic gas. BONES AND SOFT TISSUES: No bone or soft tissue abnormalities are noted. IMPRESSION: RIGHT MID AND LOWER LUNG CONSOLIDATION. RECOMMEND FOLLOW-UP UNTIL RESOLUTION TO EXCLUDE UNDERLYING PULMONARY PARENCHYMAL PATHOLOGY.
[2017-02-03 09:11] LABS: Urine Bacteria Absent (Absent); Urine Bilirubin Negative (Negative); Urine Glucose 2+(150 mg/dL) (Negative); Urine Nitrite Negative (Negative)
[2017-02-03] MEDS: NS 0.9% 1000 ML* 1,000 ML IV SCH (09:37)
[2017-02-03] MEDS: Docusate CAP* 100 MG PO SCH ×2 (10:42→22:27)
[2017-02-03] MEDS: guaiFENesin ER TAB 600 MG PO SCH ×2 (10:43→22:27)
[2017-02-03] MEDS: Cefepime(*) 2 GM in NS 0.9% 50 ML* 50 ML IVPB SCH (12:33)
[2017-02-03] MEDS: Insulin LISPRO* 1 UNITS UNIT SUBCUT SCH ×5 (13:11→23:33)
[2017-02-03 14:56] LABS: BUN/Creatinine Ratio 14.8 (8-20); Calcium 8.5 mg/dL (8.6-10.3); EGFR African American 32.2 (>60); Potassium 4.3 mmol/L (3.5-5.0)
[2017-02-03] MEDS: Ondansetron INJ* 2 MG/ML VIAL IV PRN (17:58)
[2017-02-03] MEDS ORDERED: Insulin GLARGINE(*) 1 UNITS UNIT SUBCUT SCH (21:00)
[2017-02-03] MEDS ORDERED: NS 0.9% 250 ML* 250 ML ONE (22:22)
[2017-02-03] MEDS: Vancomycin(*) 500 MG in NS 0.9% 250 ML* 250 ML IVPB SCH (22:27)
[2017-02-04] MEDS: NS 0.9% 1000 ML* 1,000 ML IV SCH (01:34)
[2017-02-04] MEDS: Acetaminophen TAB* 325 MG PO PRN ×3 (02:24→23:06)
[2017-02-04] MEDS: Ondansetron INJ* 2 MG/ML VIAL IV PRN (02:24)
[2017-02-04] MEDS: Albuterol 2.5 MG/3 ML NEB.SOL* (0.083%) INH PRN ×2 (04:15→22:45)
--- NOTE | 2017-02-04 05:14 | PN ---
Progress Note - Progress Note Date of Service: 02/04/17 Note: Nursing called reporting increased SOB and lung crackles. Upon arrival, Mrs Montemayor is sleeping, awakes to gentle touch. Reports increased SOB and upper airway secretions with cough. She denies chest pain, N/V , palpitations, or other issues. She received a breathing treatment within the last hour with some improvement. Lungs: fine cellophane crackles up 2/3 B, fair aeration, no accessory muscle use CV: RRR abd: SNTND extremities: 1+ BLE edema; SCDs in place Assessment: plan acute diastolic HF/volume overload : D/C IVFs : 40mg IV furosemide now : lara to gravity for monitoring urine output & patient comfort : check pCXR at 0700 after diuresis to further evaluate sepsis 2nd HCAP : continue vancomycin, cefepime, & levofloxacin : CXs in progress
[2017-02-04] MEDS ORDERED: Furosemide IV* 10 MG/ML VIAL (40 MG) IV ONE (06:00)
[2017-02-04] MEDS: Omeprazole CAP* 20 MG PO SCH (06:01)
--- NOTE | 2017-02-04 08:18 | RAD ---
HISTORY: Shortness of breath COMPARISONS: February 03, 2017 VIEWS: 1: frontal portable view of the chest at 6:32 AM FINDINGS: LINES AND TUBES: None. CARDIOMEDIASTINAL SILHOUETTE: The cardiomediastinal silhouette is normal for portable technique. PLEURA: The costophrenic angles are sharp. No pleural abnormalities are noted. LUNG PARENCHYMA: There has been further progressive alveolar opacification of the right mid and lower lung hannon. ABDOMEN: The upper abdomen is clear. There is no subphrenic gas. BONES AND SOFT TISSUES: No bone or soft tissue abnormalities are noted. IMPRESSION: FURTHER PROGRESSIVE CONSOLIDATION OF THE RIGHT MID AND LOWER LUNG.
[2017-02-04] MEDS: Insulin LISPRO* 1 UNITS UNIT SUBCUT SCH ×7 (08:35→22:01)
[2017-02-04] MEDS: Docusate CAP* 100 MG PO SCH ×2 (08:39→22:05)
[2017-02-04] MEDS: guaiFENesin ER TAB 600 MG PO SCH ×2 (08:41→22:06)
[2017-02-04 10:00] LABS: Hematocrit 23 % (35-47); Hemoglobin 7.5 g/dl (12.0-16.0); Mean Corpuscular HGB Conc 34 g/dl (31-36); Mean Corpuscular Hemoglobin 30 pg (27-31); Mean Corpuscular Volume 90 fL (80-97); Mean Platelet Volume 8 um3 (7.4-10.4); Red Cell Distribution Width 15 % (10.5-15); White Blood Count 12.6 10^3/ul (3.5-10.8)
[2017-02-04] MEDS ORDERED: Vancomycin Trough Check NOTE FOLLOW UP ONE (10:00)
[2017-02-04 10:18] LABS: BUN/Creatinine Ratio 13.8 (8-20); Calcium 8.7 mg/dL (8.6-10.3); EGFR African American 32.2 (>60)
[2017-02-04] MEDS: Vancomycin(*) 500 MG in NS 0.9% 250 ML* 250 ML IVPB SCH ×2 (11:55→22:15)
[2017-02-04] MEDS: Cefepime(*) 2 GM in NS 0.9% 50 ML* 50 ML IVPB SCH (13:19)
--- NOTE | 2017-02-04 14:28 | PN ---
Subjective Date of Service: 02/04/17 Interval History: Cough better, less SOB. Fair appetite. No pain, no cough. No new c/o. Objective Active Medications: Acetaminophen (Tylenol Tab*) 650 mg PO Q6H PRN PRN Reason: FEVER/PAIN Last Admin: 02/04/17 08:40 Dose: 650 mg Albuterol (Ventolin 2.5 Mg/3 Ml Neb.Romina*) 2.5 mg INH Q2H PRN PRN Reason: SOB/WHEEZING Last Admin: 02/04/17 04:15 Dose: 2.5 mg Apixaban (Eliquis*) 5 mg PO BID [facility] Docusate Sodium (Colace Cap*) 200 mg PO BID [facility] Last Admin: 02/04/17 08:39 Dose: 200 mg Guaifenesin (Mucinex*) 1,200 mg PO BID [facility] Last Admin: 02/04/17 08:41 Dose: 1,200 mg Levofloxacin/Dextrose (Levaquin 750 Mg Ivpremix(*)) 750 mg in 150 mls @ 100 mls /hr IVPB Q48H [facility] Cefepime HCl 2 gm/ Sodium (Chloride) 50 mls @ 100 mls/hr IVPB Q24H [facility] Last Admin: 02/04/17 13:19 Dose: 100 mls/hr Sodium Chloride (Ns 0.9% 1000 Ml*) 1,000 mls @ 100 mls/hr IV PER RATE [facility] Last Admin: 02/04/17 01:34 Dose: 100 mls/hr Vancomycin HCl 500 mg/ Sodium (Chloride) 250 mls @ 166.667 mls/hr IVPB Q12H [facility] Last Admin: 02/04/17 11:55 Dose: 166.667 mls/hr Insulin Glargine (Lantus(*)) 23 units SUBCUT 2100 [facility] Stop: 02/04/17 20:00 Last Admin: 02/03/17 23:34 Dose: 23 units Insulin Human Lispro (Humalog*) 0 units SUBCUT AC [facility] PRN Reason: Protocol Last Admin: 02/04/17 13:35 Dose: Not Given Insulin Human Lispro (Humalog*) 0 units SUBCUT ACHS [facility] PRN Reason: Protocol Last Admin: 02/04/17 13:26 Dose: 3 units Levothyroxine Sodium (Synthroid Tab*) 200 mcg PO QAM [facility] Omeprazole (Prilosec Cap*) 20 mg PO DAILY@0600 [facility] Last Admin: 02/04/17 06:01 Dose: 20 mg Ondansetron HCl (Zofran Inj*) 4 mg IV Q6H PRN PRN Reason: NAUSEA Last Admin: 02/04/17 02:24 Dose: 4 mg Pharmacy Consult (Vancomycin Per Pharmacy*) 1 note FOLLOW UP .VANC PER PHARMACY [facility] Pharmacy Profile Note (Vancomycin Trough Check) 1 note FOLLOW UP 1000 ONE Stop: 02/05/17 10:01 Vital Signs 02/03/17 02/03/17 02/03/17 15:35 18:05 19:45 Temperature 98.7 F Pulse Rate 86 Respiratory 20 24 Rate Blood Pressure 138/55 (mmHg) O2 Sat by Pulse 92 94 Oximetry 02/03/17 02/03/17 02/03/17 19:53 20:00 23:40 Temperature 98.9 F 98.4 F Pulse Rate 89 87 87 Respiratory 24 16 16 Rate Blood Pressure 144/64 142/65 (mmHg) O2 Sat by Pulse 94 93 93 Oximetry 02/04/17 02/04/17 02/04/17 00:00 03:37 04:16 Temperature 99.2 F Pulse Rate 89 89 Respiratory 24 22 Rate Blood Pressure 144/76 (mmHg) O2 Sat by Pulse 93 90 95 Oximetry 02/04/17 02/04/17 02/04/17 07:19 08:00 09:23 Temperature 97.5 F Pulse Rate 81 Respiratory 20 20 Rate Blood Pressure 140/64 (mmHg) O2 Sat by Pulse 99 75 Oximetry 02/04/17 02/04/17 09:24 11:10 Temperature Pulse Rate 66 86 Respiratory 18 18 Rate Blood Pressure 142/67 (mmHg) O2 Sat by Pulse 94 91 Oximetry Oxygen Devices in Use Now: Simple Face Mask Appearance: Alert, in a chair. In good spirits. Looks comfortable. Eyes: No Scleral Icterus Respiratory: Symmetrical Chest Expansion and Respiratory Effort, Clear to Auscultation, Clear to Percussion Cardiovascular: RRR, No Edema, - - 2/6 systolic murmur RSB Extremities: No Edema, No Clubbing, Cyanosis, - Skin: No Rash or Ulcers, No Nodules or Sclerosis, - Neurological: Alert and Oriented x 3, NL Sensation Result Diagrams: 02/04/17 09:52 02/04/17 09:52 Additional Lab and Data: Lab Results 02/03/17 Range/Units 03:07 WBC 18.8 H (3.5-10.8) 10^3/ul RBC 2.88 L (4.0-5.4) 10^6/ul Hgb 8.5 L (12.0-16.0) g/dl Hct 26 L (35-47) % MCV 91 (80-97) fL MCH 30 (27-31) pg MCHC 33 (31-36) g/dl RDW 16 H (10.5-15) % Plt Count 356 (150-450) 10^3/ul MPV 8 (7.4-10.4) um3 Neut % (Auto) 89.3 H (38-83) % Lymph % (Auto) 5.2 L (25-47) % [place] % (Auto) 3.6 (1-9) % Eos % (Auto) 0.9 (0-6) % Baso % (Auto) 1.0 (0-2) % Absolute Neuts (auto) 16.8 H (1.5-7.7) 10^3/ul Absolute Lymphs (auto) 1.0 (1.0-4.8) 10^3/ul Absolute Monos (auto) 0.7 (0-0.8) 10^3/ul Absolute Eos (auto) 0.2 (0-0.6) 10^3/ul Absolute Basos (auto) 0.2 (0-0.2) 10^3/ul Absolute Nucleated RBC 0.01 10^3/ul Nucleated RBC % 0 Microbiology and Other Data: Microbiology 02/04/17 08:35 Legionella Urinary Antigen - Final Urine Negative Legionella Streptococcus pneumoniae Ag Screen - Final Negative S. pneumo Antigen 02/03/17 10:57 Nasal Screen MRSA (PCR)(ANGELA) - Final Nasal Mrsa Negative Assess/Plan/Problems-Billing Assessment: - Patient Problems (1) Pneumonia Current Visit: Yes Status: Acute Code(s): J18.9 - PNEUMONIA, UNSPECIFIED ORGANISM SNOMED Code(s): 251410982 Comment: Continue vanco, levo, cefipime pending blood C&S. Clinically responding well. (2) Diabetes Current Visit: No Status: Chronic Priority: High Code(s): E11.9 - TYPE 2 DIABETES MELLITUS WITHOUT COMPLICATIONS SNOMED Code(s): 64478414 Comment: Adequate glycemic control. Continue Lantus and SS Humalog (3) Hypothyroidism Current Visit: No Status: Acute Code(s): E03.9 - HYPOTHYROIDISM, UNSPECIFIED SNOMED Code(s): 66634594 Comment: Normal TSH 01/16/17. Continue current dose of synthroid (4) LANE (acute kidney injury) Current Visit: No Status: Acute Priority: Medium Code(s): N17.9 - ACUTE KIDNEY FAILURE, UNSPECIFIED SNOMED Code(s): 42403844 Comment: on CKD. Creatinine stable (5) CKD (chronic kidney disease) stage 3, GFR 30-59 ml/min Current Visit: No Status: Chronic Code(s): N18.3 - CHRONIC KIDNEY DISEASE, STAGE 3 (MODERATE) SNOMED Code(s): 865670420 Comment: Est GFR 25.0 02/04/17. Sl better than 02/03. Continue NSS at 50 ml/ hr, new rate 02/04. (6) HTN (hypertension) Current Visit: No Status: Chronic Priority: Medium Code(s): I10 - ESSENTIAL (PRIMARY) HYPERTENSION SNOMED Code(s): 88497033 Comment: Losartan, thiazide, atenolol on hold. (7) GERD (gastroesophageal reflux disease) Current Visit: No Status: Chronic Priority: Medium Code(s): K21.9 - GASTRO -ESOPHAGEAL REFLUX DISEASE WITHOUT ESOPHAGITIS SNOMED Code(s): 791731268 Comment: Continue omeprazole (8) Pulmonary emboli Current Visit: No Status: Chronic Priority: High Code(s): I26.99 - OTHER PULMONARY EMBOLISM WITHOUT ACUTE COR PULMONALE SNOMED Code(s): 29369578 Comment: Unprovoked PE without DVT 10/2015 Continue apixaban.
[2017-02-04] MEDS ORDERED: NS 0.9% 1000 ML* 1,000 ML IV SCH (15:11)
[2017-02-04] MEDS: Apixaban* 5 MG TAB PO SCH (22:05)
[2017-02-05] MEDS ORDERED: Senna TAB PO PRN (04:53)
[2017-02-05] MEDS ORDERED: Sodium Phosphate ADULT ENEMA* 118 ml bottle PR ONE (05:30)
[2017-02-05] MEDS ORDERED: Levofloxacin 750 MG IVPREMIX(* 750 MG/150 ML BAG IVPB SCH (06:00)
[2017-02-05] MEDS: Omeprazole CAP* 20 MG PO SCH (06:32)
[2017-02-05] MEDS: Ondansetron INJ* 2 MG/ML VIAL IV PRN (06:38)
[2017-02-05 09:30] LABS: EGFR Non-African American 27.2 (>60)
[2017-02-05] MEDS ORDERED: Insulin LISPRO* 1 UNITS UNIT SUBCUT ONE (09:39)
[2017-02-05] MEDS: guaiFENesin ER TAB 600 MG PO SCH ×2 (09:45→22:31)
[2017-02-05] MEDS: Insulin LISPRO* 1 UNITS UNIT SUBCUT SCH ×7 (09:45→22:28)
[2017-02-05] MEDS: Apixaban* 5 MG TAB PO SCH ×2 (09:45→22:31)
[2017-02-05] MEDS: Levothyroxine TAB* 100 MCG TAB PO SCH (09:45)
[2017-02-05] MEDS: Docusate CAP* 100 MG PO SCH (09:45)
[2017-02-05] MEDS: Acetaminophen TAB* 325 MG PO PRN (09:53)
[2017-02-05] MEDS ORDERED: Vancomycin Trough Check NOTE FOLLOW UP ONE (10:00)
[2017-02-05 10:44] LABS: Vancomycin Trough 13.3 mcg/mL
[2017-02-05] MEDS ORDERED: Vancomycin(*) 750 MG in NS 0.9% 250 ML* 250 ML IVPB SCH (11:00)
[2017-02-05] MEDS: Vancomycin(*) 500 MG in NS 0.9% 250 ML* 250 ML IVPB SCH (12:17)
[2017-02-05] MEDS: Cefepime(*) 2 GM in NS 0.9% 50 ML* 50 ML IVPB SCH (14:33)
--- NOTE | 2017-02-05 14:34 | PN ---
Subjective Date of Service: 02/05/17 Interval History: She states she had a bad night last night and needed 2 breathing treatments, but is much better today. Objective Active Medications: Acetaminophen (Tylenol Tab*) 650 mg PO Q6H PRN PRN Reason: FEVER/PAIN Last Admin: 02/05/17 09:53 Dose: 650 mg Albuterol (Ventolin 2.5 Mg/3 Ml Neb.Romina*) 2.5 mg INH Q2H PRN PRN Reason: SOB/WHEEZING Last Admin: 02/04/17 22:45 Dose: 2.5 mg Apixaban (Eliquis*) 5 mg PO BID [facility] Last Admin: 02/05/17 09:45 Dose: 5 mg Guaifenesin (Mucinex*) 1,200 mg PO BID [facility] Last Admin: 02/05/17 09:45 Dose: 1,200 mg Cefepime HCl 2 gm/ Sodium (Chloride) 50 mls @ 100 mls/hr IVPB Q24H [facility] Last Admin: 02/04/17 13:19 Dose: 100 mls/hr Sodium Chloride (Ns 0.9% 1000 Ml*) 1,000 mls @ 50 mls/hr IV PER RATE [facility] Insulin Human Lispro (Humalog*) 0 units SUBCUT AC [facility] PRN Reason: Protocol Last Admin: 02/05/17 09:45 Dose: 7 units Insulin Human Lispro (Humalog*) 0 units SUBCUT ACHS [facility] PRN Reason: Protocol Last Admin: 02/05/17 09:46 Dose: 6 units Levothyroxine Sodium (Synthroid Tab*) 200 mcg PO QAM [facility] Last Admin: 02/05/17 09:45 Dose: 200 mcg Omeprazole (Prilosec Cap*) 20 mg PO DAILY@0600 [facility] Last Admin: 02/05/17 06:32 Dose: Not Given Ondansetron HCl (Zofran Inj*) 4 mg IV Q6H PRN PRN Reason: NAUSEA Last Admin: 02/05/17 06:38 Dose: 4 mg Senna (Senokot Tab*) 2 tab PO BEDTIME PRN PRN Reason: CONSTIPATION Vital Signs 02/04/17 02/04/17 02/04/17 15:12 20:00 20:11 Temperature 97.4 F Pulse Rate 81 91 85 Respiratory 20 22 22 Rate Blood Pressure 141/52 150/72 (mmHg) O2 Sat by Pulse 100 99 100 Oximetry 02/04/17 02/04/17 02/05/17 23:17 23:20 00:00 Temperature 98.1 F Pulse Rate 102 Respiratory 22 Rate Blood Pressure 142/58 (mmHg) O2 Sat by Pulse 85 92 94 Oximetry 02/05/17 02/05/17 02/05/17 03:42 08:00 08:05 Temperature 98.5 F 99.5 F Pulse Rate 101 99 Respiratory 20 18 24 Rate Blood Pressure 150/68 160/74 (mmHg) O2 Sat by Pulse 93 87 Oximetry 02/05/17 02/05/17 09:13 12:00 Temperature 99.1 F Pulse Rate 91 Respiratory 16 Rate Blood Pressure 144/63 (mmHg) O2 Sat by Pulse 90 100 Oximetry Oxygen Devices in Use Now: Nasal Cannula Appearance: Alert, in a chair. In good spirits. Looks comfortable. Occ mild dry cough during my visit. Eyes: No Scleral Icterus Neck: NL Appearance and Movements; NL JVP, No Thyroid Enlargement, Masses Respiratory: Symmetrical Chest Expansion and Respiratory Effort, Clear to Auscultation, Clear to Percussion Cardiovascular: NL Sounds; No Murmurs; No JVD, RRR, No Edema, - Skin: No Rash or Ulcers, No Nodules or Sclerosis, - Neurological: Alert and Oriented x 3, NL Sensation Result Diagrams: 02/04/17 09:52 02/05/17 09:02 Additional Lab and Data: Lab Results 02/03/17 Range/Units 03:07 WBC 18.8 H (3.5-10.8) 10^3/ul RBC 2.88 L (4.0-5.4) 10^6/ul Hgb 8.5 L (12.0-16.0) g/dl Hct 26 L (35-47) % MCV 91 (80-97) fL MCH 30 (27-31) pg MCHC 33 (31-36) g/dl RDW 16 H (10.5-15) % Plt Count 356 (150-450) 10^3/ul MPV 8 (7.4-10.4) um3 Neut % (Auto) 89.3 H (38-83) % Lymph % (Auto) 5.2 L (25-47) % [place] % (Auto) 3.6 (1-9) % Eos % (Auto) 0.9 (0-6) % Baso % (Auto) 1.0 (0-2) % Absolute Neuts (auto) 16.8 H (1.5-7.7) 10^3/ul Absolute Lymphs (auto) 1.0 (1.0-4.8) 10^3/ul Absolute Monos (auto) 0.7 (0-0.8) 10^3/ul Absolute Eos (auto) 0.2 (0-0.6) 10^3/ul Absolute Basos (auto) 0.2 (0-0.2) 10^3/ul Absolute Nucleated RBC 0.01 10^3/ul Nucleated RBC % 0 Microbiology and Other Data: Microbiology 02/04/17 08:35 Legionella Urinary Antigen - Final Urine Negative Legionella Streptococcus pneumoniae Ag Screen - Final Negative S. pneumo Antigen 02/03/17 10:57 Nasal Screen MRSA (PCR)(ANGELA) - Final Nasal Mrsa Negative Assess/Plan/Problems-Billing Assessment: - Patient Problems (1) Pneumonia Current Visit: Yes Status: Acute Code(s): J18.9 - PNEUMONIA, UNSPECIFIED ORGANISM SNOMED Code(s): 504738823 Comment: Continue cefipime only. Clinically much better 02/05. Anciticpat ed /c on oral antibiotic 02/06 if stable. (2) Diabetes Current Visit: No Status: Chronic Priority: High Code(s): E11.9 - TYPE 2 DIABETES MELLITUS WITHOUT COMPLICATIONS SNOMED Code(s): 13703057 Comment: Missed 02/04 Lantus. Start Lantus 25 U daily 02/05. (3) Hypothyroidism Current Visit: No Status: Acute Code(s): E03.9 - HYPOTHYROIDISM, UNSPECIFIED SNOMED Code(s): 42747973 Comment: Normal TSH 01/16/17. Continue current dose of synthroid (4) LANE (acute kidney injury) Current Visit: No Status: Acute Priority: Medium Code(s): N17.9 - ACUTE KIDNEY FAILURE, UNSPECIFIED SNOMED Code(s): 94721844 Comment: on CKD. Creatinine stable (5) CKD (chronic kidney disease) stage 3, GFR 30-59 ml/min Current Visit: No Status: Chronic Code(s): N18.3 - CHRONIC KIDNEY DISEASE, STAGE 3 (MODERATE) SNOMED Code(s): 062836425 Comment: Est GFR 25.0 02/04/17. Sl better than 02/03. Continue NSS at 50 ml/ hr, new rate 02/04. (6) HTN (hypertension) Current Visit: No Status: Chronic Priority: Medium Code(s): I10 - ESSENTIAL (PRIMARY) HYPERTENSION SNOMED Code(s): 51517215 Comment: Losartan, thiazide, atenolol on hold. (7) GERD (gastroesophageal reflux disease) Current Visit: No Status: Chronic Priority: Medium Code(s): K21.9 - GASTRO -ESOPHAGEAL REFLUX DISEASE WITHOUT ESOPHAGITIS SNOMED Code(s): 812485422 Comment: Continue omeprazole (8) Pulmonary emboli Current Visit: No Status: Chronic Priority: High Code(s): I26.99 - OTHER PULMONARY EMBOLISM WITHOUT ACUTE COR PULMONALE SNOMED Code(s): 71603795 Comment: Unprovoked PE without DVT 10/2015 Continue apixaban.
[2017-02-05] MEDS: Insulin GLARGINE(*) 1 UNITS UNIT SUBCUT SCH (17:29)
[2017-02-06] MEDS: Omeprazole CAP* 20 MG PO SCH (05:14)
[2017-02-06] MEDS: Acetaminophen TAB* 325 MG PO PRN (06:10)
[2017-02-06 06:25] LABS: EGFR African American 36.9 (>60); EGFR Non-African American 28.7 (>60)
[2017-02-06] MEDS: guaiFENesin ER TAB 600 MG PO SCH (07:43)
[2017-02-06] MEDS: Levothyroxine TAB* 100 MCG TAB PO SCH (07:43)
[2017-02-06] MEDS: Apixaban* 5 MG TAB PO SCH (07:44)
[2017-02-06] MEDS: Insulin LISPRO* 1 UNITS UNIT SUBCUT SCH ×4 (08:06→13:12)
[2017-02-06] MEDS ORDERED: ceFUROXime TAB(*) 250 MG PO ONE (09:18)
--- NOTE | 2017-02-06 09:41 | PN ---
Progress Note - Progress Note Date of Service: 02/06/17 Note: Time spent on discharge 50 minutes.
[2017-02-06] MEDS ORDERED: Fluticasone NASAL SPRAY 50MCG* 16 gm SPRAY BTL BOTH NARES SCH (10:00)
--- NOTE | 2017-02-06 12:51 | TRS ---
CC: Dr. Zurita DISCHARGE SUMMARY: DATE OF ADMISSION: 02/03/17 DATE OF TRANSFER: 02/06/17 HISTORY OF PRESENT ILLNESS: This 71-year-old woman had recently sustained a subdural hematoma and w as intubated to facilitate transfer to [facility]. She was either felt to be stable or actually not having a subarachnoid hemorrhage and was transferred, returned back to [facility] where she originally had started. After being there for a short period of time, I think less than a week, she was in respiratory distress. She fell on the floor, evaluation in the ER showed a right lower lobe infiltrate. She was started on vancomycin, cefepime, and levofloxacin . She had a swallow study on 02/04/17, where she tolerated thin liquids and regular solids. She improved quite well. Urine for Legionella and pneumococcal antigens were negative. Nasal swab was negative for MRSA. Two sets of blood culture showed no growth at the time of this dictation, da y 3 plus. The patient was started on fluticasone nasal spray on the day of transfer for nasal congestion. FINAL DIAGNOSES: 1. Pneumonia. 2. Diabetes. 3. Hypothyroidism. 4. Chronic kidney disease. 5. Hypertension. 6. GERD. 7. History of pulmonary emboli. DISCHARGE MEDICATIONS: 1. Fluticasone nasal spray 2 sprays both nares daily. 2. Levothyroxine 200 mcg daily. 3. Senna 2 h.s. p.r.n. 4. Cefuroxime 500 mg b.i.d. for 7 days. 5. Guaifenesin ER 1200 mg b.i.d. 6. Humalog Mix 75/25 KwikPen 25 units subcu b.i.d. before meals. 7. Oxycodone/acetaminophen 5/325 one every 6 hours p.r.n. 8. Apixaban 5 mg b.i.d. 9. Lomotil 1 four tablets a day p.r.n. 10. Lactobacillus 1 daily. [id number]/[facility] #: [id number]
[2017-02-06 13:38] VITALS: BP 160/68
[2017-02-06] MEDS: Insulin GLARGINE(*) 1 UNITS UNIT SUBCUT SCH (16:30)
[2017-02-06] MEDS ORDERED: ceFUROXime TAB(*) 250 MG PO SCH (21:00)
[2017-02-07] MEDS ORDERED: Vancomycin Trough Check NOTE FOLLOW UP ONE (10:30)
== END 2017-02-06 16:40 | DRG 871 ==
LOC: ED 02:34 → MEDTELE 06:11
PROVIDERS: ADMIT Hospitalist; ATTEND Internal Medicine
DX: A41.9 Sepsis, unspecified organism (principal); J18.9 Pneumonia, unspecified organism; N17.9 Acute kidney failure, unspecified; I50.31 Acute diastolic (congestive) heart failure; E11.22 Type 2 diabetes mellitus with diabetic chronic kidney disease; N18.3 Chronic kidney disease, stage 3 (moderate); I13.0 Hypertensive heart and chronic kidney disease with heart failure and stage 1 through stage 4 chronic kidney disease, or unspecified chronic kidney disease; I12.9 Hypertensive chronic kidney disease with stage 1 through stage 4 chronic kidney disease, or unspecified chronic kidney disease; E03.9 Hypothyroidism, unspecified; K21.9 Gastro-esophageal reflux disease without esophagitis; Z86.711 Personal history of pulmonary embolism; F43.10 Post-traumatic stress disorder, unspecified; F32.9 Major depressive disorder, single episode, unspecified; G89.29 Other chronic pain; Z79.4 Long term (current) use of insulin; Z79.891 Long term (current) use of opiate analgesic; Z79.899 Other long term (current) drug therapy; Z88.8 Allergy status to other drugs, medicaments and biological substances; Z87.891 Personal history of nicotine dependence
CPT/HCPCS: 36415; 71010; 80048; 80053; 80202; 81003; 81015; 82565; 82607; 82728; 82746; 83540; 83550; 83605; 83615; 83880; 84484; 84520; 85025; 85045; 85610; 85730; 86850; 86900; 86901; 87040; 87086; 87641; 87899; 93005; 94640; 94760; A9270-GY; J0692; J1940; J2405; J3370

== ENCOUNTER 2017-02-20 21:27 | Inpatient (IN) | payer MEDICARE ==
[2017-02-21] MEDS ORDERED: NS 0.9% 1000 ML* 1,000 ML IV ONE (00:05)
[2017-02-21 00:37] LABS: Hematocrit 28 % (35-47); Hemoglobin 9.3 g/dl (12.0-16.0); Mean Corpuscular HGB Conc 33 g/dl (31-36); Mean Corpuscular Hemoglobin 29 pg (27-31); Mean Corpuscular Volume 87 fL (80-97); Mean Platelet Volume 8 um3 (7.4-10.4); Red Blood Count 3.21 10^6/ul (4.0-5.4); Red Cell Distribution Width 16 % (10.5-15); White Blood Count 17.8 10^3/ul (3.5-10.8)
[2017-02-21 00:49] LABS: Albumin 3.3 g/dL (3.2-5.2); BUN/Creatinine Ratio 12.1 (8-20); C Reactive Protein 137.44 mg/L (< 5.00); EGFR Non-African American 27.2 (>60); Globulin 3.2 g/dL (2-4); Potassium 3.6 mmol/L (3.5-5.0); Total Bilirubin 0.3 mg/dL (0.2-1.0); Total Protein 6.5 g/dL (6.4-8.9)
[2017-02-21 02:41] LABS: Urine Bacteria Absent (Absent); Urine Bilirubin Negative (Negative); Urine Glucose 2+(150 mg/dL) (Negative); Urine Nitrite Negative (Negative)
[2017-02-21] MEDS ORDERED: Dextrose 50% Syringe 50 ML* 25 GM/50 ML SYRINGE IV PUSH PRN (04:14)
[2017-02-21] MEDS ORDERED: Albuterol 2.5 MG/3 ML NEB.SOL* (0.083%) INH PRN (04:20)
[2017-02-21 05:01] LABS: TSH (Thyroid Stimulating Horm) 3.89 mcIU/mL (0.34-5.60)
[2017-02-21] MEDS: NS 0.9% 1000 ML* 1,000 ML IV SCH ×2 (05:36→17:00)
[2017-02-21] MEDS: Levothyroxine TAB* 100 MCG TAB PO SCH (06:16)
[2017-02-21] MEDS: oxyCODONE/Acetamin 5/325 MG* TAB PO PRN (06:16)
[2017-02-21] MEDS: Ondansetron INJ* 2 MG/ML VIAL IV PRN (06:17)
--- NOTE | 2017-02-21 07:42 | RAD ---
INDICATION: Head injury. COMPARISON: Comparison is made with a prior CT of the brain from January 16, 2017. TECHNIQUE: Contiguous axial sections of the brain were obtained from the skull base to the vertex without contrast. FINDINGS: The ventricles, cisterns and sulci are enlarged consistent with diffuse atrophy. There are small areas of decreased density in the subcortical and periventricular white matter suggestive of mild chronic small vessel ischemic changes. The previously noted focus of increased density in the left frontal lobe has resolved consistent with interval resolution of subarachnoid hemorrhage. There is no evidence for hemorrhage on the current study. No significant focal osseous abnormality is seen. The visualized portion of the paranasal sinuses and mastoid air cells appear clear. IMPRESSION: NO EVIDENCE FOR ACUTE INTRACRANIAL ABNORMALITY.
--- NOTE | 2017-02-21 07:50 | RAD ---
INDICATION: Trauma. COMPARISON: Comparison is made with a prior CT of the cervical spine from January 16, 2017. TECHNIQUE: Contiguous axial sections were obtained from the skull base through the T1 vertebra. Images were reconstructed in the sagittal and coronal planes. FINDINGS: The vertebra are in normal alignment. No prevertebral soft tissue swelling or fracture is seen. There is osseous fusion of the C2 and C3 vertebra likely developmental. At the C3-C4 level there is mild to moderate posterior uncinate process spurring which is more prominent toward the left size causing mild to moderate spinal canal narrowing. There is mild neural foraminal narrowing on the right side and moderate neural foraminal narrowing on the left side. At the C4-C5 level there is a minimal central disc protrusion. No significant spinal canal narrowing is present. There is mild bilateral neural foraminal narrowing. At the C5-C6 level there is mild posterior uncinate process spurring which causes mild spinal canal narrowing. There is mild to moderate bilateral neural foraminal narrowing. At the C6-C7 level there is moderate posterior uncinate process spurring which is most prominent toward the right side. This causes mild spinal canal narrowing. There is mild to moderate bilateral neural foraminal narrowing. IMPRESSION: 1. NO EVIDENCE FOR FRACTURE OR SUBLUXATION. 2. MILD TO MODERATE CERVICAL SPONDYLOSIS.
--- NOTE | 2017-02-21 07:56 | RAD ---
HISTORY: Diarrhea COMPARISONS: CT dated January 16, 2017 VIEWS: Frontal supine and upright views of the abdomen. FINDINGS: BOWEL: There is a nonspecific bowel gas pattern, with nondilated small bowel gas noted. There is a large amount of stool within the colon. CALCULI: There are no abnormal calculi. BONES AND SOFT TISSUES: Degenerative changes are noted along the spine. 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 OTHER FINDINGS: The lung bases are clear. There is no subphrenic gas. IMPRESSION: NONSPECIFIC BOWEL GAS PATTERN.
--- NOTE | 2017-02-21 08:19 | RAD ---
INDICATION: Leukocytosis. Recent pneumonia COMPARISON: Chest x-ray February 04, 2017 TECHNIQUE: PA and lateral dual-energy views were obtained. FINDINGS: Bones/Soft Tissues: There are no acute bony findings. Cardiomediastinal: The cardiomediastinal silhouette is normal. Lungs: There are no infiltrates. Right-sided consolidative changes have resolved. The left basilar nidus also resolved. Pleura: There are no pleural effusions. Other: None IMPRESSION: RESOLUTION OF INFILTRATES. LUNGS CLEAR.
[2017-02-21] MEDS: Insulin LISPRO* 1 UNITS UNIT SUBCUT SCH ×4 (08:25→20:57)
[2017-02-21] MEDS: Apixaban* 5 MG TAB PO SCH ×2 (08:26→20:57)
[2017-02-21] MEDS: Sertraline* 25 MG TAB PO SCH (08:26)
[2017-02-21] MEDS: metroNIDAZOLE TAB* 250 MG PO SCH ×3 (09:01→20:57)
--- NOTE | 2017-02-21 09:14 | HP ---
ADMISSION HISTORY AND PHYSICAL: DATE OF ADMISSION: 02/21/17 PRIMARY CARE PROVIDER: Dr. Zurita. HEALTHCARE PROXY: Peewee Smith, her significant other. CODE STATUS: Full. SOURCE OF INFORMATION: History obtained from interview with the patient. RELIABILITY: Poor/unreliable. CHIEF COMPLAINT: Diarrhea. HISTORY OF PRESENT ILLNESS: This is a 71-year-old female, hospital stay at the end of December after a fall with a head strike, concern for a small subarachnoid , transferred to [facility] where a bleed was reportedly ruled out, and the patient was transferred to [facility] [place] where she subsequently had falls, found hypoxic with a right-sided pneumonia and rehospitalized at [facility] from to 02/06/17, treated with 3 days of vancomycin, cefepime, and levofloxacin before transferring out to [facility] again to complete 7 additional days of cefuroxime. She was discharged from [facility] approximately 5 days prior to presentation and she notes during that time, she has had constant diarrhea with increasing frequency until the point where it feels almost continuous. She notes additional increasing weakness and dizziness with 1 fall today while leaning over a couch to fold a pad with head strike, but no loss of consciousness. On re-telling the history, the patient seamlessly starts combining this presentation with previous presentations, muddling the timeline significantly. When questioned repeatedly about her presentation today, she does consistently return to the narrative of increasing diarrhea with associated abdominal pain that has been difficult to characterize. PAST MEDICAL HISTORY: Includes: 1. Recent fall in December with concern for subarachnoid, which was reportedly ruled out at [facility]. 2. Right-sided pneumonia, treated at [facility] 02/03/17 to 02/06/17. 3. Insulin-dependent type 2 diabetes. 4. Hypertension. 5. CKD stage 3. 6. GERD. 7. PTSD. 8. Depression. 9. Chronic pain. 10. Diabetic retinopathy. MEDICATIONS: Unchanged from previous admission, although I question the accuracy of her recounting, includes: 1. Percocet 5/325 one tab every 6 hours as needed for pain. 2. Guaifenesin ER 1200 mg twice daily. 3. Zoloft 50 mg daily. 4. Senna 2 tabs at bedtime as needed. 5. Ondansetron ODT 4 mg every 8 hours as needed for nausea or vomiting. 6. Levothyroxine 200 mcg in the morning. 7. Lactobacillus 1 cap daily. 8. Insulin and Humalog mix 75/25 KwikPen 25 units twice daily with meals. 9. Fluticasone nasal spray 2 sprays both nares daily. 10. Lomotil 1 tab 4 times a day as needed. 11. Apixaban 5 mg twice daily. 12. Albuterol nebulizer every 2 hours as needed for shortness of breath or wheeze. ALLERGIES: HYDROCODONE and METFORMIN. FAMILY HISTORY: The patient is unable to relay accurately. SOCIAL HISTORY: Smoked 1 pack a day from 1966 to 1983. Rare alcohol. Lives at home alone. Ambulates with a walker. REVIEW OF SYSTEMS: As per HPI, otherwise all other systems negative. PHYSICAL EXAMINATION GENERAL: Lying flat in bed, interactive, pleasant, in no apparent distress. Difficult to awake, but when she is awake, she is fully alert. VITAL SIGNS: When seen by this author, 121/66, heart rate in the emergency room has ranged from 105 to 113, O2 sat 98% on room air, T-max in the emergency room 97.1, respiratory rate is 14. HEENT: Oropharynx is clear. She has moist mucous membranes. Sclerae anicteric. NECK: Non-elevated JVD. No cervical or supraclavicular lymphadenopathy. LUNGS: Clear to auscultation except for mild rales in bilateral bases. HEART: Tachycardic heart rate with regular rhythm. ABDOMEN: Soft with tenderness in the right upper quadrant, nondistended, positive bowel sounds. No rebound or guarding. EXTREMITIES: Warm and well perfused without clubbing, cyanosis, or edema. She has sluggish capillary refill in her fingers. NEURO: She is alert and oriented x3. She has ptosis of her right eye; otherwise, extraocular muscles are intact. Cranial nerves II through XII are intact. No apparent anxiety, agitation, or depression. PERTINENT LABORATORY DATA: Notable for BUN 22, creatinine 1.82. Alk phos 110 , AST of 9, ALT of 11, lipase 10. White blood cell count 17.8, 83.9% neutrophils, hemoglobin 9.3 with an MCV of 87, platelets 438. Urine positive for protein, ketones, red blood cells, squamous epithelial cells, hyaline cast, and glucose. Abdominal x-ray, this author's read shows clear lungs and nondilated loops of small bowel and large bowel, no free air. Official read pending. ASSESSMENT AND PLAN: This is a 71-year-old female with complicated recent medical history, most proximally with a right-sided pneumonia, treated with antibiotics, discharged to [facility], then from [facility] to home 5 days prior, now returning with increased weakness, abdominal pain, and diarrhea, found to have leukocytosis associated with tachycardia. 1. Diarrhea and abdominal pain, concerning for Clostridium difficile colitis, especially in the setting of multiple hospital stays as well as antibiotic course. We will check Clostridium difficile as well as stool culture and stool lactoferrin. 2 L of normal saline now slowly at 125 cc per hour as last transthoracic echocardiogram did indicate some diastolic heart dysfunction. In the setting of isolated right upper quadrant tenderness on clinical exam, we will check right upper quadrant ultrasound additionally. I suspect diarrhea is also contributing to her tachycardia as well as increased dizziness, which may have resulted in her fall at home secondary to orthostasis. It should be noted she was previously prescribed Lomotil 4 times daily as needed. It is unclear whether she was taking this medication at home or if she carries a diagnosis of chronic diarrheal illness. We will hold on additional Lomotil at this time until above stool studies have returned. Additional thyroid testing will be useful and has been added to the emergency room labs. Additionally with glucose in her urine and her last hemoglobin A1c 10.1 in 2016, we will repeat this test as she may be experiencing some element of glycosuria contributing to dehydration. 2. Type 2 diabetes. Fingerstick glucose with sliding scale lispro. Recheck hemoglobin A1c as indicated above. 3. Hypothyroidism. Continue levothyroxine and recheck TSH as indicated above. 4. Chronic kidney disease. Dose meds appropriately. 5. History of pulmonary embolism approximately 1 year prior. Continue apixaban ; however, patient indicates no other pulmonary embolisms and no other history of DVT. Unclear whether this was provoked or not. Discontinuation of the medication ____ could be considered. We will continue at this time. The patient to discuss with Dr. Zurita. 6. DVT prophylaxis. Apixaban. 7. Code status is full. [id number]/[facility] #: [id number] [facility]
--- NOTE | 2017-02-21 09:28 | RAD ---
Indication: Heterogeneous hypoattenuation noted at the inferior margin of the RIGHT lobe of the liver on January 16, 2017 CT. History of C. Difficile colitis. Abdominal pain, nausea. Comparison: January 16, 2017 CT. Technique: RIGHT upper quadrant ultrasound. Report: Acoustic window limited due to large body habitus. The liver measures 17.5 cm cephalocaudal. Heterogeneous echogenicity of the liver with hyperechogenicity corresponding with the region of decreased density at the caudal aspect of the RIGHT hepatic lobe on January 16, 2017 CT. No compelling intrinsic vascularity within this region on Doppler. Additional region of increased echogenicity noted at the LEFT lateral hepatic segment posteriorly corresponding with subtle decreased density on CT. Negative for intrahepatic biliary dilatation. 10.9 mm diameter common bile duct which may be a normal finding in setting of previous cholecystectomy. No stone or lesion evident within the visualized common bile duct. The pancreatic tail is partially obscured due to bowel gas with the visualized pancreas unremarkable. Negative for ascites. 11.1 cm RIGHT kidney is unremarkable. IMPRESSION: Increased echogenicity noted corresponding with the region of decreased density at the caudal aspect of the RIGHT hepatic lobe with additional similar area at the LEFT lateral hepatic segment most suggestive of focal fatty infiltration. Reassessment of this probable benign finding either with CT or ultrasound in 6 months time suggested.
[2017-02-21] MEDS: Fluticasone NASAL SPRAY 50MCG* 16 gm SPRAY BTL BOTH NARES SCH (11:15)
--- NOTE | 2017-02-21 17:38 | PN ---
Subjective Date of Service: 02/21/17 Interval History: Patient seen and examined at bedside. Denies shortness of breath, chest discomfort, N/V. Pt states that she developed diarrhea after being discharged from the alf on , the diarrhea started on evening. She reports fever and chills at admission, but this has resolved. Pt states that she has only been out of bed to a commode today. Pt feels like she is starting to feel better. Family History: Unchanged from Admission Social History: Unchanged from Admission Past Medical History: Unchanged from Admission Objective Active Medications: Acetaminophen (Tylenol Tab*) 650 mg PO Q6H PRN Reason: PAIN Albuterol (Ventolin 2.5 Mg/3 Ml Neb.Romina*) 2.5 mg INH Q2H PRN Reason: SOB/ WHEEZING Apixaban (Eliquis*) 5 mg PO BID [facility] Dextrose (D50w Syringe 50 Ml*) 12.5 gm IV PUSH .FOR FS < 60 - SS PRN Reason: FS < 60 Fluticasone Propionate (Flonase Nasal Reading 50mcg*) 2 spray BOTH NARES DAILY [facility] Sodium Chloride (Ns 0.9% 1000 Ml*) 1,000 mls @ 125 mls/hr IV PER RATE [facility] Stop: 02/22/17 12:14 Insulin Human Lispro (Humalog*) 0 units SUBCUT ACHS [facility] Levothyroxine Sodium (Synthroid Tab*) 200 mcg PO QAM@0600 [facility] Metronidazole (Flagyl Tab*) 500 mg PO TID [facility] Ondansetron HCl (Zofran Inj*) 4 mg IV Q4H PRN Reason: NAUSEA Oxycodone/Acetaminophen (Percocet 5/325 Tab*) 1 tab PO Q6H PRN Reason: PAIN Sertraline HCl (Zoloft*) 50 mg PO DAILY [facility] Vital Signs 02/21/17 02/21/17 02/21/17 05:30 05:35 06:16 Temperature 97.7 F 97.7 F Pulse Rate 101 101 Respiratory 17 17 16 Rate Blood Pressure 148/70 148/70 (mmHg) O2 Sat by Pulse 100 100 Oximetry 02/21/17 02/21/17 02/21/17 08:16 08:44 14:27 Temperature 97.6 F 97.5 F Pulse Rate 97 74 Respiratory 18 18 18 Rate Blood Pressure 149/65 142/60 (mmHg) O2 Sat by Pulse 98 98 Oximetry 02/21/17 15:44 Temperature 98.2 F Pulse Rate 102 Respiratory 20 Rate Blood Pressure 141/62 (mmHg) O2 Sat by Pulse 97 Oximetry Oxygen Devices in Use Now: None Appearance: NAD, laying in bed Ears/Nose/Mouth/Throat: Mucous Membranes Moist Respiratory: Symmetrical Chest Expansion and Respiratory Effort, Clear to Auscultation Cardiovascular: NL Sounds; No Murmurs; No JVD, RRR Abdominal: NL Sounds; No Tenderness; No Distention Extremities: No Edema Skin: No Rash or Ulcers Neurological: Alert and Oriented x 3, NL Muscle Strength and Tone Lines/Tubes/Other Access: Clean, Dry and Intact Peripheral IV - site benign Nutrition: Taking PO's Result Diagrams: 02/21/17 00:20 02/21/17 00:20 Microbiology and Other Data: Microbiology 02/21/17 05:10 Stool Gross Appearance - Final Stool C. difficile DNA Amplification - Final 027 Presumptive POSITIVE Toxigenic C.diff POSITIVE Stool Lactoferrin - Final 02/21/17 05:10 Stool Gross Appearance - Final Stool Assess/Plan/Problems-Billing Assessment: Ms. Montemayor is a 71 yo female PMH significant for HTN, CKD st 3, GERD, PTSD, depression, chronic pain, DM and recent PNA who presented to the emergency room with complaints of weakness and diarrhea. - Patient Problems (1) C. difficile colitis Comment: - Afebrile, leukocytosis - CRP ~ 137 - Continue Flagyl (2) Diabetes Code(s): E11.9 - TYPE 2 DIABETES MELLITUS WITHOUT COMPLICATIONS SNOMED Code(s) : 62603230 Comment: - Glucose 140-220's - HgA1C pending - Continue Lispro SS (3) Hypothyroidism Code(s): E03.9 - HYPOTHYROIDISM, UNSPECIFIED SNOMED Code(s): 99960849 Comment: - TSH 3.89 - Continue current dose of synthroid (4) CKD (chronic kidney disease) stage 3, GFR 30-59 ml/min Code(s): N18.3 - CHRONIC KIDNEY DISEASE, STAGE 3 (MODERATE) SNOMED Code(s): 162757719 Comment: - Creatinine 1.8, near baseline - Renally dose medication (5) HTN (hypertension) Code(s): I10 - ESSENTIAL (PRIMARY) HYPERTENSION SNOMED Code(s): 71042283 Comment: - Normotensive (6) Pulmonary emboli Code(s): I26.99 - OTHER PULMONARY EMBOLISM WITHOUT ACUTE COR PULMONALE SNOMED Code(s): 46259977 Comment: - Unprovoked PE without DVT 10/2015 - Continue apixaban. (7) DVT prophylaxis Code(s): XCY8812 - SNOMED Code(s): 044714369 Comment: - Eliquis (8) Full code status Code(s): Z78.9 - OTHER SPECIFIED HEALTH STATUS SNOMED Code(s): 478524239 Status and Disposition: OBV. Discharge to home when medically stable.
[2017-02-21] MEDS: Acetaminophen TAB* 325 MG PO PRN (20:57)
[2017-02-22] MEDS: Levothyroxine TAB* 100 MCG TAB PO SCH (05:49)
[2017-02-22 05:53] LABS: Hematocrit 23 % (35-47); Hemoglobin 7.7 g/dl (12.0-16.0); Mean Corpuscular HGB Conc 33 g/dl (31-36); Mean Corpuscular Hemoglobin 29 pg (27-31); Mean Corpuscular Volume 87 fL (80-97); Mean Platelet Volume 7 um3 (7.4-10.4); Red Blood Count 2.69 10^6/ul (4.0-5.4); Red Cell Distribution Width 16 % (10.5-15); White Blood Count 16.2 10^3/ul (3.5-10.8)
[2017-02-22 06:07] LABS: BUN/Creatinine Ratio 10.9 (8-20); Calcium 7.8 mg/dL (8.6-10.3); EGFR African American 41.8 (>60); EGFR Non-African American 32.5 (>60); Potassium 3.3 mmol/L (3.5-5.0)
[2017-02-22] MEDS: Insulin LISPRO* 1 UNITS UNIT SUBCUT SCH ×4 (07:22→22:10)
[2017-02-22] MEDS: Sertraline* 25 MG TAB PO SCH (07:22)
[2017-02-22] MEDS: Fluticasone NASAL SPRAY 50MCG* 16 gm SPRAY BTL BOTH NARES SCH (07:23)
[2017-02-22] MEDS: Apixaban* 5 MG TAB PO SCH ×2 (07:23→22:10)
[2017-02-22] MEDS: metroNIDAZOLE TAB* 250 MG PO SCH ×3 (07:23→22:10)
[2017-02-22] MEDS ORDERED: Potassium Chlor TAB* 20 MEQ TAB.ER PO ONE (08:12)
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
--- NOTE | 2017-02-22 14:30 | PN ---
Subjective Date of Service: 02/22/17 Interval History: Patient seen and examined at bedside. Denies fever, chills, shortness of breath , chest discomfort, or vomiting. Pt reports diarrhea ~ 1 times per hour, she is incontinent at times and it is watery. Also reports nausea. Pt doesn't want to go back to [facility] if she has to go to rehab. Family History: Unchanged from Admission Social History: Unchanged from Admission Past Medical History: Unchanged from Admission Objective Active Medications: Acetaminophen (Tylenol Tab*) 650 mg PO Q6H PRN Reason: PAIN Albuterol (Ventolin 2.5 Mg/3 Ml Neb.Romina*) 2.5 mg INH Q2H PRN Reason: SOB/ WHEEZING Apixaban (Eliquis*) 5 mg PO BID [facility] Dextrose (D50w Syringe 50 Ml*) 12.5 gm IV PUSH .FOR FS < 60 - SS PRN Reason: FS < 60 Fluticasone Propionate (Flonase Nasal [place] 50mcg*) 2 spray BOTH NARES DAILY [facility] Insulin Human Lispro (Humalog*) 0 units SUBCUT ACHS [facility] Levothyroxine Sodium (Synthroid Tab*) 200 mcg PO QAM@0600 [facility] Metronidazole (Flagyl Tab*) 500 mg PO TID [facility] Ondansetron HCl (Zofran Inj*) 4 mg IV Q4H PRN Reason: NAUSEA Oxycodone/Acetaminophen (Percocet 5/325 Tab*) 1 tab PO Q6H PRN Reason: PAIN Sertraline HCl (Zoloft*) 50 mg PO DAILY [facility] Oxygen Devices in Use Now: None Appearance: NAD, laying in bed Ears/Nose/Mouth/Throat: Mucous Membranes Moist Respiratory: Symmetrical Chest Expansion and Respiratory Effort, Clear to Auscultation Cardiovascular: NL Sounds; No Murmurs; No JVD, RRR Abdominal: NL Sounds; No Tenderness; No Distention Extremities: No Edema Skin: No Rash or Ulcers Neurological: Alert and Oriented x 3, NL Muscle Strength and Tone Lines/Tubes/Other Access: Clean, Dry and Intact Peripheral IV - site benign Nutrition: Taking PO's Result Diagrams: 02/22/17 05:47 02/22/17 05:47 Microbiology and Other Data: Microbiology 02/21/17 05:10 Stool Gross Appearance - Final Stool C. difficile DNA Amplification - Final 027 Presumptive POSITIVE Toxigenic C.diff POSITIVE Stool Lactoferrin - Final 02/21/17 05:10 Stool Gross Appearance - Final Stool Assess/Plan/Problems-Billing Assessment: Ms. Montemayor is a 71 yo female PMH significant for HTN, CKD st 3, GERD, PTSD, depression, chronic pain, DM and recent PNA who presented to the emergency room with complaints of weakness and diarrhea. - Patient Problems (1) C. difficile colitis Comment: - Afebrile, leukocytosis - CRP ~ 137 - Continue Flagyl (2) Electrolyte abnormality Code(s): E87.8 - OTH DISORDERS OF ELECTROLYTE AND FLUID BALANCE, NEC SNOMED Code(s): 358233310 Comment: - Hypokalemia - Suspect secondary to diarrhea. Will give replacement and recheck labs in the AM. (3) Diabetes Code(s): E11.9 - TYPE 2 DIABETES MELLITUS WITHOUT COMPLICATIONS SNOMED Code(s) : 87304950 Comment: - Glucose 170-280's - HgA1C 9.9 - Continue Lispro SS (4) Hypothyroidism Code(s): E03.9 - HYPOTHYROIDISM, UNSPECIFIED SNOMED Code(s): 71021455 Comment: - TSH 3.89 - Continue current dose of synthroid (5) CKD (chronic kidney disease) stage 3, GFR 30-59 ml/min Code(s): N18.3 - CHRONIC KIDNEY DISEASE, STAGE 3 (MODERATE) SNOMED Code(s): 331556580 Comment: - Creatinine 1.56, near baseline - Renally dose medications (6) HTN (hypertension) Code(s): I10 - ESSENTIAL (PRIMARY) HYPERTENSION SNOMED Code(s): 62420330 Comment: - Normotensive (7) Pulmonary emboli Code(s): I26.99 - OTHER PULMONARY EMBOLISM WITHOUT ACUTE COR PULMONALE SNOMED Code(s): 29200409 Comment: - Unprovoked PE without DVT 10/2015 - Continue apixaban. (8) DVT prophylaxis Code(s): QJU7984 - SNOMED Code(s): 663533277 Comment: - Eliquis (9) Full code status Code(s): Z78.9 - OTHER SPECIFIED HEALTH STATUS SNOMED Code(s): 974617831 Status and Disposition: OBV to Inpatient. Discharge to home vs rehab when medically stable.
[2017-02-22] MEDS: Ondansetron INJ* 2 MG/ML VIAL IV PRN (15:27)
[2017-02-22] MEDS: NS 0.9% 1000 ML* 1,000 ML IV SCH (15:58)
[2017-02-22] MEDS: oxyCODONE/Acetamin 5/325 MG* TAB PO PRN (22:10)
[2017-02-22] MEDS: GuaiFENesin DM sugar free* 5 ML UDC PO PRN (22:10)
[2017-02-23 05:48] LABS: Hematocrit 25 % (35-47); Hemoglobin 8.1 g/dl (12.0-16.0); Mean Corpuscular HGB Conc 33 g/dl (31-36); Mean Corpuscular Hemoglobin 28 pg (27-31); Mean Corpuscular Volume 87 fL (80-97); Mean Platelet Volume 7 um3 (7.4-10.4); Red Blood Count 2.87 10^6/ul (4.0-5.4); Red Cell Distribution Width 16 % (10.5-15); White Blood Count 15.3 10^3/ul (3.5-10.8)
[2017-02-23] MEDS: Levothyroxine TAB* 100 MCG TAB PO SCH (05:51)
[2017-02-23] MEDS: Acetaminophen TAB* 325 MG PO PRN ×2 (05:51→22:09)
[2017-02-23] MEDS: GuaiFENesin DM sugar free* 5 ML UDC PO PRN ×2 (05:51→13:44)
[2017-02-23] MEDS: metroNIDAZOLE VAGINAL 0.75%* 70 GM VAGINAL SCH ×2 (05:52→21:12)
[2017-02-23] MEDS: NS 0.9% 1000 ML* 1,000 ML IV SCH ×2 (05:52→20:15)
[2017-02-23 06:05] LABS: BUN/Creatinine Ratio 8.7 (8-20); Calcium 7.7 mg/dL (8.6-10.3); EGFR Non-African American 41.2 (>60); Potassium 3.4 mmol/L (3.5-5.0)
[2017-02-23] MEDS: Sertraline* 25 MG TAB PO SCH (09:11)
[2017-02-23] MEDS: Fluticasone NASAL SPRAY 50MCG* 16 gm SPRAY BTL BOTH NARES SCH (09:11)
[2017-02-23] MEDS: metroNIDAZOLE TAB* 250 MG PO SCH ×3 (09:12→21:12)
[2017-02-23] MEDS: Insulin LISPRO* 1 UNITS UNIT SUBCUT SCH ×4 (09:12→22:08)
[2017-02-23] MEDS: Apixaban* 5 MG TAB PO SCH ×2 (09:12→21:12)
[2017-02-23] MEDS: Ondansetron INJ* 2 MG/ML VIAL IV PRN ×2 (12:12→16:59)
[2017-02-23 13:26] LABS: Magnesium 1.3 mg/dL (1.9-2.7)
[2017-02-23] MEDS: Potassium Chlor TAB* 20 MEQ TAB.ER PO SCH ×2 (13:40→17:56)
[2017-02-23] MEDS ORDERED: Magnesium Sulf 4 GM/100 ML IV* 4,000 MG/100 ML BAG IVPB ONE (14:41)
--- NOTE | 2017-02-23 14:53 | PN ---
Subjective Date of Service: 02/23/17 Interval History: Patient seen and examined at bedside. Patient states she still is having very frequent loose stools. Has been out of bed. Has not really walked. Was recently on antibiotics for pneumonia. Does not want to go to [facility] if she needs rehab. Family History: Unchanged from Admission Social History: Unchanged from Admission Past Medical History: Unchanged from Admission Objective Active Medications: Acetaminophen (Tylenol Tab*) 650 mg PO Q6H PRN Albuterol (Ventolin 2.5 Mg/3 Ml Neb.Romina*) 2.5 mg INH Q2H PRN Apixaban (Eliquis*) 5 mg PO BID [facility] Fluticasone Propionate (Flonase Nasal [place] 50mcg*) 2 spray BOTH NARES DAILY [facility] Guaifenesin/Dextromethorphan (Robitussin Dm Sugar Free*) 5 ml PO Q6H PRN Sodium Chloride (Ns 0.9% 1000 Ml*) 1,000 mls @ 75 mls/hr IV PER RATE [facility] Magnesium Sulfate (Magnesium Sulf 4 Gm/100 Ml Iv*) 4,000 mg in 100 mls @ 33.333 mls/hr IVPB ONCE ONE Insulin Human Lispro (Humalog*) 0 units SUBCUT ACHS [facility] Levothyroxine Sodium (Synthroid Tab*) 200 mcg PO QAM@0600 [facility] Magnesium Oxide (Magox 400 Tab*) 800 mg PO DAILY [facility] Metronidazole (Flagyl Tab*) 500 mg PO TID [facility] Metronidazole (Metronidazole Vaginal 0.75%*) 1 applic VAGINAL BEDTIME [facility] Ondansetron HCl (Zofran Inj*) 4 mg IV Q4H PRN Oxycodone/Acetaminophen (Percocet 5/325 Tab*) 1 tab PO Q6H PRN Potassium Chloride (Klor Con Er Tab*) 20 meq PO Q4H [facility] Sertraline HCl (Zoloft*) 50 mg PO DAILY [facility] Vital Signs 02/22/17 02/22/17 02/22/17 15:05 20:00 20:51 Temperature 97.8 F 99.3 F Pulse Rate 100 109 Respiratory 18 16 16 Rate Blood Pressure 146/60 180/76 (mmHg) O2 Sat by Pulse 98 98 Oximetry 02/22/17 02/22/17 02/23/17 22:10 23:21 00:10 Temperature 98.5 F Pulse Rate 107 Respiratory 18 14 16 Rate Blood Pressure 137/67 (mmHg) O2 Sat by Pulse 97 Oximetry 02/23/17 04:00 Temperature 98.1 F Pulse Rate 103 Respiratory 12 Rate Blood Pressure 147/69 (mmHg) O2 Sat by Pulse 97 Oximetry Oxygen Devices in Use Now: None Appearance: sitting up in bed, NAD Eyes: No Scleral Icterus, PERRLA Ears/Nose/Mouth/Throat: NL Teeth, Lips, Gums Neck: NL Appearance and Movements; NL JVP Respiratory: Symmetrical Chest Expansion and Respiratory Effort, Clear to Auscultation Cardiovascular: NL Sounds; No Murmurs; No JVD, RRR Abdominal: - - slightly distended; lower abdominal tenderness Extremities: No Edema Skin: No Rash or Ulcers Neurological: Alert and Oriented x 3, NL Muscle Strength and Tone Lines/Tubes/Other Access: Clean, Dry and Intact Peripheral IV Nutrition: Taking PO's Result Diagrams: 02/23/17 05:19 02/23/17 05:19 Assess/Plan/Problems-Billing Ms. Montemayor is a 71 yo female PMH significant for HTN, CKD st 3, GERD, PTSD, depression, chronic pain, DM and recent PNA who presented to the emergency room with complaints of weakness and diarrhea found to have C. diff colitis. - Patient Problems (1) C. difficile colitis Comment: Hold IVF for now. Continue PO Flagyl. Leukocytosis improving. Advance diet to soft/post-op diet. (2) Hypokalemia due to loss of potassium Comment: Replete magnesium and KCl. Recheck in AM. (3) CKD (chronic kidney disease) stage 3, GFR 30-59 ml/min Comment: Creatinine 1.2 which is close to baseline. (4) Diabetes Comment: Continue high dose Lispro sliding scale. Add 70/30 Insulin once PO intake improved. (5) HTN (hypertension) Comment: Controlled. BP medications on hold. (6) Hypothyroidism Comment: Continue current dose of synthroid. (7) Pulmonary emboli Comment: Continue apixaban. (8) DVT prophylaxis Comment: Ayad (9) Full code status Status and Disposition: Inpatient for C diff colitis. Discharge to home vs rehab when medically stable.
[2017-02-24] MEDS: GuaiFENesin DM sugar free* 5 ML UDC PO PRN ×2 (01:06→07:17)
[2017-02-24] MEDS: Levothyroxine TAB* 100 MCG TAB PO SCH (05:35)
[2017-02-24 06:10] LABS: Hematocrit 24 % (35-47); Mean Corpuscular HGB Conc 33 g/dl (31-36); Mean Corpuscular Hemoglobin 29 pg (27-31); Mean Corpuscular Volume 87 fL (80-97); Mean Platelet Volume 8 um3 (7.4-10.4); Red Blood Count 2.78 10^6/ul (4.0-5.4); Red Cell Distribution Width 16 % (10.5-15); White Blood Count 12.1 10^3/ul (3.5-10.8)
[2017-02-24 06:32] LABS: BUN/Creatinine Ratio 8.7 (8-20); Calcium 7.6 mg/dL (8.6-10.3); EGFR African American 48.2 (>60); EGFR Non-African American 37.5 (>60); Potassium 3.8 mmol/L (3.5-5.0)
[2017-02-24] MEDS: Ondansetron INJ* 2 MG/ML VIAL IV PRN ×3 (07:16→16:56)
[2017-02-24] MEDS: Fluticasone NASAL SPRAY 50MCG* 16 gm SPRAY BTL BOTH NARES SCH (09:34)
[2017-02-24] MEDS: Magnesium Oxide TAB* 400 MG PO SCH (09:35)
[2017-02-24] MEDS: Apixaban* 5 MG TAB PO SCH ×2 (09:35→22:38)
[2017-02-24] MEDS: Venlafaxine EXT RELEASE CAP* 75 MG PO SCH (09:36)
[2017-02-24] MEDS: Sertraline* 25 MG TAB PO SCH (09:36)
[2017-02-24] MEDS: Insulin LISPRO* 1 UNITS UNIT SUBCUT SCH ×4 (09:36→22:40)
[2017-02-24] MEDS: metroNIDAZOLE TAB* 250 MG PO SCH ×3 (09:36→22:38)
[2017-02-24] MEDS: NS 0.9% 1000 ML* 1,000 ML IV SCH (09:40)
--- NOTE | 2017-02-24 10:23 | PN ---
Subjective Date of Service: 02/24/17 Interval History: Patient seen and examined at bedside. Patient reports intermittent nausea but enjoying soft diet. She reports now being continent of stool and only has had one BM since breakfast. Taking POs without difficulty. Family History: Unchanged from Admission Social History: Unchanged from Admission Past Medical History: Unchanged from Admission Objective Active Medications: Acetaminophen (Tylenol Tab*) 650 mg PO Q6H PRN Albuterol (Ventolin 2.5 Mg/3 Ml Neb.Romina*) 2.5 mg INH Q2H PRN Apixaban (Eliquis*) 5 mg PO BID [facility] Dextrose (D50w Syringe 50 Ml*) 12.5 gm IV PUSH .FOR FS < 60 - SS PRN Fluticasone Propionate (Flonase Nasal [place] 50mcg*) 2 spray BOTH NARES DAILY [facility] Guaifenesin/Dextromethorphan (Robitussin Dm Sugar Free*) 5 ml PO Q6H PRN Insulin Human Lispro (Humalog*) 0 units SUBCUT ACHS [facility] Levothyroxine Sodium (Synthroid Tab*) 200 mcg PO QAM@0600 [facility] Magnesium Oxide (Magox 400 Tab*) 800 mg PO DAILY [facility] Metronidazole (Flagyl Tab*) 500 mg PO TID [facility] Metronidazole (Metronidazole Vaginal 0.75%*) 1 applic VAGINAL BEDTIME [facility] Ondansetron HCl (Zofran Inj*) 4 mg IV Q4H PRN Oxycodone/Acetaminophen (Percocet 5/325 Tab*) 1 tab PO Q6H PRN Sertraline HCl (Zoloft*) 50 mg PO DAILY [facility] Venlafaxine HCl (Effexor Xr Cap*) 150 mg PO DAILY [facility] 02/23/17 02/23/17 02/24/17 22:57 23:29 04:08 Temperature 98.3 F 98.1 F Pulse Rate 97 98 Respiratory 18 16 16 Rate Blood Pressure 151/66 138/59 (mmHg) O2 Sat by Pulse 100 97 Oximetry Oxygen Devices in Use Now: None Appearance: sitting up in bed, NAD Eyes: No Scleral Icterus, PERRLA Ears/Nose/Mouth/Throat: NL Teeth, Lips, Gums Neck: NL Appearance and Movements; NL JVP Respiratory: Symmetrical Chest Expansion and Respiratory Effort, Clear to Auscultation Cardiovascular: NL Sounds; No Murmurs; No JVD, RRR Abdominal: - - +BS; tender RU and LQ. Extremities: No Edema Skin: No Rash or Ulcers Neurological: Alert and Oriented x 3, NL Muscle Strength and Tone Lines/Tubes/Other Access: Clean, Dry and Intact Peripheral IV Nutrition: Taking PO's Result Diagrams: 02/24/17 05:28 02/24/17 05:28 Assess/Plan/Problems-Billing Ms. Montemayor is a 71 yo female PMH significant for HTN, CKD st 3, GERD, PTSD, depression, chronic pain, DM and recent PNA who presented to the emergency room with complaints of weakness and diarrhea found to have C. diff colitis. - Patient Problems (1) C. difficile colitis Comment: Stool frequency inmproving. Continue PO Flagyl; Leukocytosis improving. Conitnue soft diet. (2) Hypokalemia due to loss of potassium Comment: Repleted yesterday and now WNL. Recheck in AM. (3) CKD (chronic kidney disease) stage 3, GFR 30-59 ml/min Comment: Creatinine 1.2 which is close to baseline. (4) Diabetes Comment: Continue high dose Lispro sliding scale. Restart 1/2 of home 70/30 Insulin. (5) HTN (hypertension) Comment: Controlled. BP medications on hold. (6) Hypothyroidism Comment: Continue current dose of synthroid. (7) Pulmonary emboli Comment: Continue Eliquis. (8) DVT prophylaxis Comment: Eliquis (9) Full code status Status and Disposition: Inpatient for C diff colitis. Discharge to home vs rehab when medically stable.
[2017-02-24] MEDS ORDERED: Insulin ISOPH/REG 70/30 (*) 1 UNITS UNIT SUBCUT SCH (17:00)
[2017-02-24] MEDS: metroNIDAZOLE VAGINAL 0.75%* 70 GM VAGINAL SCH (22:41)
[2017-02-24] MEDS: Acetaminophen TAB* 325 MG PO PRN (22:53)
[2017-02-25] MEDS: Levothyroxine TAB* 100 MCG TAB PO SCH (04:54)
[2017-02-25] MEDS: oxyCODONE/Acetamin 5/325 MG* TAB PO PRN (04:54)
[2017-02-25 06:59] LABS: Hematocrit 24 % (35-47); Hemoglobin 8.1 g/dl (12.0-16.0); Mean Corpuscular HGB Conc 33 g/dl (31-36); Mean Corpuscular Hemoglobin 29 pg (27-31); Mean Corpuscular Volume 86 fL (80-97); Mean Platelet Volume 7 um3 (7.4-10.4); Red Blood Count 2.83 10^6/ul (4.0-5.4); Red Cell Distribution Width 16 % (10.5-15); White Blood Count 10.2 10^3/ul (3.5-10.8)
[2017-02-25 07:29] LABS: BUN/Creatinine Ratio 9.3 (8-20); Calcium 7.8 mg/dL (8.6-10.3); EGFR African American 47.4 (>60); EGFR Non-African American 36.9 (>60); Potassium 3.7 mmol/L (3.5-5.0)
[2017-02-25] MEDS: Fluticasone NASAL SPRAY 50MCG* 16 gm SPRAY BTL BOTH NARES SCH (08:52)
[2017-02-25] MEDS: Magnesium Oxide TAB* 400 MG PO SCH (08:52)
[2017-02-25] MEDS: Apixaban* 5 MG TAB PO SCH ×2 (08:53→21:59)
[2017-02-25] MEDS: Insulin ISOPH/REG 70/30 (*) 1 UNITS UNIT SUBCUT SCH ×2 (08:54→17:06)
[2017-02-25] MEDS: Insulin LISPRO* 1 UNITS UNIT SUBCUT SCH ×4 (08:55→22:01)
[2017-02-25] MEDS: Venlafaxine EXT RELEASE CAP* 75 MG PO SCH (08:56)
[2017-02-25] MEDS: Sertraline* 25 MG TAB PO SCH (08:57)
[2017-02-25] MEDS: metroNIDAZOLE TAB* 250 MG PO SCH ×3 (08:57→21:59)
[2017-02-25] MEDS: Ondansetron INJ* 2 MG/ML VIAL IV PRN (08:58)
[2017-02-25] MEDS ORDERED: Potassium Chlor TAB* 20 MEQ TAB.ER PO ONE (09:48)
--- NOTE | 2017-02-25 09:48 | PN ---
Subjective Date of Service: 02/25/17 Interval History: Patient seen and examined at bedside. Patient states she had 4 BM yesterday ( semi formed). She states she does not feel ready to go home. She reports some mild nausea; no emesis. Afebrile. Family History: Unchanged from Admission Social History: Unchanged from Admission Past Medical History: Unchanged from Admission Objective Active Medications: Acetaminophen (Tylenol Tab*) 650 mg PO Q6H PRN Albuterol (Ventolin 2.5 Mg/3 Ml Neb.Romina*) 2.5 mg INH Q2H PRN Apixaban (Eliquis*) 5 mg PO BID [facility] Fluticasone Propionate (Flonase Nasal [place] 50mcg*) 2 spray BOTH NARES DAILY [facility] Guaifenesin/Dextromethorphan (Robitussin Dm Sugar Free*) 5 ml PO Q6H PRN Insulin Human Isoph/Insulin Regular (Humulin 70/30 (*)) 25 units SUBCUT 0800, 1700 [facility] Insulin Human Lispro (Humalog*) 0 units SUBCUT ACHS [facility] Levothyroxine Sodium (Synthroid Tab*) 200 mcg PO QAM@0600 [facility] Magnesium Oxide (Magox 400 Tab*) 800 mg PO DAILY [facility] Metronidazole (Flagyl Tab*) 500 mg PO TID [facility] Metronidazole (Metronidazole Vaginal 0.75%*) 1 applic VAGINAL BEDTIME [facility] Ondansetron HCl (Zofran Inj*) 4 mg IV Q4H PRN Oxycodone/Acetaminophen (Percocet 5/325 Tab*) 1 tab PO Q6H PRN Sertraline HCl (Zoloft*) 50 mg PO DAILY [facility] Venlafaxine HCl (Effexor Xr Cap*) 150 mg PO DAILY [facility] 02/25/17 02/25/17 02/25/17 03:39 04:54 07:42 Temperature 97.8 F 97.6 F Pulse Rate 98 96 Respiratory 16 16 16 Rate Blood Pressure 150/70 148/77 (mmHg) O2 Sat by Pulse 96 99 Oximetry Oxygen Devices in Use Now: None Appearance: sitting up in bed, NAD Eyes: No Scleral Icterus, PERRLA Ears/Nose/Mouth/Throat: NL Teeth, Lips, Gums Neck: NL Appearance and Movements; NL JVP Respiratory: Symmetrical Chest Expansion and Respiratory Effort, Clear to Auscultation Cardiovascular: NL Sounds; No Murmurs; No JVD, RRR Abdominal: - - slight tenderness RLQ Extremities: No Edema Skin: No Rash or Ulcers Neurological: Alert and Oriented x 3, NL Muscle Strength and Tone Lines/Tubes/Other Access: Clean, Dry and Intact Peripheral IV Result Diagrams: 02/25/17 06:16 02/25/17 06:16 Microbiology and Other Data: Microbiology 02/21/17 05:10 Stool Gross Appearance - Final Stool C. difficile DNA Amplification - Final 027 Presumptive POSITIVE Toxigenic C.diff POSITIVE Stool Lactoferrin - Final 02/21/17 05:10 Stool Gross Appearance - Final Stool Assess/Plan/Problems-Billing Ms. Montemayor is a 71 yo female PMH significant for HTN, CKD st 3, GERD, PTSD, depression, chronic pain, DM and recent PNA who presented to the emergency room with complaints of weakness and diarrhea found to have C. diff colitis. - Patient Problems (1) C. difficile colitis Comment: Stool frequency improved. Continue PO Flagyl; Leukocytosis resolved. Advance to reg diet (consistent carb). (2) Hypokalemia due to loss of potassium Comment: K 3.7. Replete with 20mEq KCl. (3) CKD (chronic kidney disease) stage 3, GFR 30-59 ml/min Comment: Creatinine 1.4 which is close to baseline. (4) Diabetes Comment: Increase 70/30 to home dose. Increased sliding scale coverage. Surgars in the 300s last night. (5) HTN (hypertension) Comment: Restart Atenolol. Hyzaar (Losartan/HCTZ) on hold. (6) Hypothyroidism Comment: Continue current dose of synthroid. (7) Pulmonary emboli Comment: Continue Eliquis. (8) DVT prophylaxis Comment: Eliquis (9) Full code status Status and Disposition: Inpatient for C diff colitis. Will need to be Independent to go home. Patient interested in subacute rehab.
[2017-02-25] MEDS ORDERED: Atenolol TAB* 25 MG PO SCH (10:00)
[2017-02-25] MEDS: metroNIDAZOLE VAGINAL 0.75%* 70 GM VAGINAL SCH (22:02)
[2017-02-26] MEDS: Acetaminophen TAB* 325 MG PO PRN (04:39)
[2017-02-26] MEDS: Levothyroxine TAB* 100 MCG TAB PO SCH (04:40)
[2017-02-26] MEDS ORDERED: Lidocaine 2% JELLY* 6 ML JELLY TOPICAL PRN (05:38)
[2017-02-26] MEDS: Fluticasone NASAL SPRAY 50MCG* 16 gm SPRAY BTL BOTH NARES SCH (08:05)
[2017-02-26] MEDS: Insulin ISOPH/REG 70/30 (*) 1 UNITS UNIT SUBCUT SCH ×2 (08:06→17:16)
[2017-02-26] MEDS: Magnesium Oxide TAB* 400 MG PO SCH (08:06)
[2017-02-26] MEDS: metroNIDAZOLE TAB* 250 MG PO SCH ×3 (08:06→21:10)
[2017-02-26] MEDS: Sertraline* 25 MG TAB PO SCH (08:06)
[2017-02-26] MEDS: Apixaban* 5 MG TAB PO SCH ×2 (08:06→21:10)
[2017-02-26] MEDS: Venlafaxine EXT RELEASE CAP* 75 MG PO SCH (08:06)
[2017-02-26] MEDS: Insulin LISPRO* 1 UNITS UNIT SUBCUT SCH ×4 (08:07→21:15)
[2017-02-26] MEDS ORDERED: Fluconazole 100 MG TAB* TAB PO ONE (11:58)
[2017-02-26] MEDS: Lactobacillus Acidophilu (GG)* 1 CAP CAP PO SCH ×2 (13:43→21:15)
--- NOTE | 2017-02-26 17:25 | PN ---
Subjective Date of Service: 02/26/17 Interval History: HOSPITALIST PROGRESS NOTE Patient seen and examined at bedside. She has had 3 liquid BMs so far today. Major complaint is vaginal itching and burning. Tolerating diet well with no N/V. Family History: Unchanged from Admission Social History: Unchanged from Admission Past Medical History: Unchanged from Admission Objective Active Medications: Acetaminophen (Tylenol Tab*) 650 mg PO Q6H PRN PRN Reason: PAIN Last Admin: 02/26/17 04:39 Dose: 650 mg Albuterol (Ventolin 2.5 Mg/3 Ml Neb.Romina*) 2.5 mg INH Q2H PRN PRN Reason: SOB/WHEEZING Apixaban (Eliquis*) 5 mg PO BID [facility] Last Admin: 02/26/17 08:06 Dose: 5 mg Dextrose (D50w Syringe 50 Ml*) 12.5 gm IV PUSH .FOR FS < 60 - SS PRN PRN Reason: FS < 60 Fluticasone Propionate (Flonase Nasal [place] 50mcg*) 2 spray BOTH NARES DAILY [facility] Last Admin: 02/26/17 08:05 Dose: 2 spray Guaifenesin/Dextromethorphan (Robitussin Dm Sugar Free*) 5 ml PO Q6H PRN PRN Reason: COUGH Last Admin: 02/24/17 07:17 Dose: 5 ml Insulin Human Isoph/Insulin Regular (Humulin 70/30 (*)) 25 units SUBCUT 0800, 1700 [facility] Last Admin: 02/26/17 17:16 Dose: 25 units Insulin Human Lispro (Humalog*) 0 units SUBCUT ACHS [facility] PRN Reason: Protocol Last Admin: 02/26/17 17:16 Dose: 6 units Lactobacillus Rhamnosus (Culturelle*) 1 cap PO BID [facility] Last Admin: 02/26/17 13:43 Dose: 1 cap Levothyroxine Sodium (Synthroid Tab*) 200 mcg PO QAM@0600 [facility] Last Admin: 02/26/17 04:40 Dose: 200 mcg Lidocaine HCl (Lidocaine 2% Jelly*) 1 applic TOPICAL Q4H PRN PRN Reason: VAGINAL IRRITATION Last Admin: 02/26/17 08:05 Dose: 1 applic Magnesium Oxide (Magox 400 Tab*) 400 mg PO DAILY [facility] Last Admin: 02/26/17 08:06 Dose: 400 mg Metronidazole (Flagyl Tab*) 500 mg PO TID [facility] Last Admin: 02/26/17 13:43 Dose: 500 mg Miconazole Nitrate (Miconazole Vaginal Cream 2%*) 1 applic VAGINAL BEDTIME [facility] Ondansetron HCl (Zofran Inj*) 4 mg IV Q4H PRN PRN Reason: NAUSEA Last Admin: 02/25/17 08:58 Dose: 4 mg Oxycodone/Acetaminophen (Percocet 5/325 Tab*) 1 tab PO Q6H PRN PRN Reason: PAIN Last Admin: 02/25/17 04:54 Dose: 1 tab Sertraline HCl (Zoloft*) 50 mg PO DAILY [facility] Last Admin: 02/26/17 08:06 Dose: 50 mg Venlafaxine HCl (Effexor Xr Cap*) 150 mg PO DAILY [facility] Last Admin: 02/26/17 08:06 Dose: 150 mg Vital Signs 02/26/17 02/26/17 02/26/17 03:02 07:38 08:00 Temperature 97.9 F 97.6 F Pulse Rate 87 87 Respiratory 16 18 14 Rate Blood Pressure 146/65 134/60 (mmHg) O2 Sat by Pulse 98 99 Oximetry Oxygen Devices in Use Now: None Appearance: Pleasant lady sitting up in a chair in [place]. Eyes: No Scleral Icterus Ears/Nose/Mouth/Throat: Mucous Membranes Moist Neck: Trachea Midline Respiratory: Symmetrical Chest Expansion and Respiratory Effort, Clear to Auscultation Cardiovascular: RRR - Normal S1 and S2 Abdominal: - - Soft, mild RLQ tenderness, NG, NR, BS+ Neurological: Alert and Oriented x 3, NL Muscle Strength and Tone Lines/Tubes/Other Access: Clean, Dry and Intact Peripheral IV Nutrition: Taking PO's Result Diagrams: 02/25/17 06:16 02/25/17 06:16 Assess/Plan/Problems-Billing Assessment: Ms. Montemayor is a 71 yo female with PMH significant for HTN, CKD 3, GERD, PTSD, depression, chronic pain, DM and recent PNA who presented to the emergency room with complaints of weakness and diarrhea found to have C. diff colitis. - Patient Problems (1) C. difficile colitis Comment: - Leukocytosis is improved. - Stool frequency is decreasing, but stool is still liquid. - Continue PO Flagyl. - Will change to lactose free diet and add probiotic. (2) Vaginal candidiasis Comment: - Fluconazole PO x 1 dose and miconazole vaginal cream. (3) Diabetes Comment: - Increase 70/30 to 28 units and continue sliding scale coverage. (4) CKD (chronic kidney disease) stage 3, GFR 30-59 ml/min Comment: - Renal function back at baseline. (5) Hypothyroidism Comment: - Continue Levothyroxine. (6) Pulmonary emboli Comment: - Continue Eliquis. (7) DVT prophylaxis Comment: - Eliquis. (8) Full code status Status and Disposition: Inpatient for C diff colitis.
[2017-02-26] MEDS: Miconazole VAGINAL CREAM 2%* 45 GM VAGINAL SCH (21:15)
[2017-02-26] MEDS: GuaiFENesin DM sugar free* 5 ML UDC PO PRN (22:10)
[2017-02-26] MEDS: Ondansetron INJ* 2 MG/ML VIAL IV PRN (23:29)
[2017-02-27] MEDS: Levothyroxine TAB* 100 MCG TAB PO SCH (05:32)
[2017-02-27] MEDS: metroNIDAZOLE TAB* 250 MG PO SCH ×3 (09:29→20:16)
[2017-02-27] MEDS: Magnesium Oxide TAB* 400 MG PO SCH (09:29)
[2017-02-27] MEDS: Apixaban* 5 MG TAB PO SCH ×2 (09:29→20:16)
[2017-02-27] MEDS: Sertraline* 25 MG TAB PO SCH (09:29)
[2017-02-27] MEDS: Venlafaxine EXT RELEASE CAP* 75 MG PO SCH (09:29)
[2017-02-27] MEDS: Insulin LISPRO* 1 UNITS UNIT SUBCUT SCH ×4 (09:30→21:42)
[2017-02-27] MEDS: Insulin ISOPH/REG 70/30 (*) 1 UNITS UNIT SUBCUT SCH ×2 (09:30→17:44)
[2017-02-27] MEDS: Lactobacillus Acidophilu (GG)* 1 CAP CAP PO SCH ×2 (09:30→20:16)
[2017-02-27] MEDS: Fluticasone NASAL SPRAY 50MCG* 16 gm SPRAY BTL BOTH NARES SCH (09:31)
--- NOTE | 2017-02-27 12:54 | PN ---
Subjective Date of Service: 02/27/17 Interval History: HOSPITALIST PROGRESS NOTE Patient seen and examined at bedside. Offers no new complaints. Afraid to go home as she's still having diarrhea, although not as frequent as before. Tolerating diet well, with no N/V. Family History: Unchanged from Admission Social History: Unchanged from Admission Past Medical History: Unchanged from Admission Objective Active Medications: Acetaminophen (Tylenol Tab*) 650 mg PO Q6H PRN PRN Reason: PAIN Last Admin: 02/26/17 04:39 Dose: 650 mg Albuterol (Ventolin 2.5 Mg/3 Ml Neb.Romina*) 2.5 mg INH Q2H PRN PRN Reason: SOB/WHEEZING Apixaban (Eliquis*) 5 mg PO BID [facility] Last Admin: 02/27/17 09:29 Dose: 5 mg Dextrose (D50w Syringe 50 Ml*) 12.5 gm IV PUSH .FOR FS < 60 - SS PRN PRN Reason: FS < 60 Fluticasone Propionate (Flonase Nasal [place] 50mcg*) 2 spray BOTH NARES DAILY [facility] Last Admin: 02/27/17 09:31 Dose: 2 spray Guaifenesin/Dextromethorphan (Robitussin Dm Sugar Free*) 5 ml PO Q6H PRN PRN Reason: COUGH Last Admin: 02/26/17 22:10 Dose: 5 ml Insulin Human Isoph/Insulin Regular (Humulin 70/30 (*)) 28 units SUBCUT 0800, 1700 [facility] Last Admin: 02/27/17 09:30 Dose: 28 units Insulin Human Lispro (Humalog*) 0 units SUBCUT ACHS [facility] PRN Reason: Protocol Last Admin: 02/27/17 09:30 Dose: 3 units Lactobacillus Rhamnosus (Culturelle*) 1 cap PO BID [facility] Last Admin: 02/27/17 09:30 Dose: 1 cap Levothyroxine Sodium (Synthroid Tab*) 200 mcg PO QAM@0600 [facility] Last Admin: 02/27/17 05:32 Dose: 200 mcg Lidocaine HCl (Lidocaine 2% Jelly*) 1 applic TOPICAL Q4H PRN PRN Reason: VAGINAL IRRITATION Last Admin: 02/26/17 08:05 Dose: 1 applic Magnesium Oxide (Magox 400 Tab*) 400 mg PO DAILY [facility] Last Admin: 02/27/17 09:29 Dose: 400 mg Metronidazole (Flagyl Tab*) 500 mg PO TID [facility] Last Admin: 02/27/17 09:29 Dose: 500 mg Miconazole Nitrate (Miconazole Vaginal Cream 2%*) 1 applic VAGINAL BEDTIME [facility] Last Admin: 02/26/17 21:15 Dose: 1 applic Ondansetron HCl (Zofran Inj*) 4 mg IV Q4H PRN PRN Reason: NAUSEA Last Admin: 02/26/17 23:29 Dose: 4 mg Oxycodone/Acetaminophen (Percocet 5/325 Tab*) 1 tab PO Q6H PRN PRN Reason: PAIN Last Admin: 02/25/17 04:54 Dose: 1 tab Sertraline HCl (Zoloft*) 50 mg PO DAILY [facility] Last Admin: 02/27/17 09:29 Dose: 50 mg Venlafaxine HCl (Effexor Xr Cap*) 150 mg PO DAILY [facility] Last Admin: 02/27/17 09:29 Dose: 150 mg 02/27/17 02/27/17 02/27/17 03:50 07:58 08:00 Temperature 97.9 F 98.2 F Pulse Rate 93 86 Respiratory 14 18 14 Rate Blood Pressure 150/76 138/61 (mmHg) O2 Sat by Pulse 98 95 Oximetry Oxygen Devices in Use Now: None Appearance: Pleasant elderly lady sitting up in a chair in [facility]. Eyes: No Scleral Icterus Ears/Nose/Mouth/Throat: Mucous Membranes Moist Neck: Trachea Midline Respiratory: Symmetrical Chest Expansion and Respiratory Effort, Clear to Auscultation Cardiovascular: RRR - Normal S1 and S2 Abdominal: NL Sounds; No Tenderness; No Distention Neurological: Alert and Oriented x 3, NL Muscle Strength and Tone Lines/Tubes/Other Access: Clean, Dry and Intact Peripheral IV Nutrition: Taking PO's Result Diagrams: 02/25/17 06:16 02/25/17 06:16 Assess/Plan/Problems-Billing Assessment: Ms. Montemayor is a 71 yo female with PMH significant for HTN, CKD 3, GERD, PTSD, depression, chronic pain, DM and recent PNA who presented to the emergency room with complaints of weakness and diarrhea found to have C. diff colitis. - Patient Problems (1) C. difficile colitis Comment: - Leukocytosis is improved. - Stool frequency is decreasing, but stool is still liquid. - Continue PO Flagyl. - Continue lactose free diet and probiotic. (2) Vaginal candidiasis Comment: - Fluconazole PO x 1 dose and miconazole vaginal cream. (3) Diabetes Comment: - Continue 70/30 to 28 units and sliding scale coverage. (4) CKD (chronic kidney disease) stage 3, GFR 30-59 ml/min Comment: - Renal function back at baseline. (5) Hypothyroidism Comment: - Continue Levothyroxine. (6) Pulmonary emboli Comment: - Continue Eliquis. (7) DVT prophylaxis Comment: - Eliquis. (8) Full code status Status and Disposition: Inpatient for C diff colitis. Anticipate d/c in AM.
[2017-02-27] MEDS: Miconazole VAGINAL CREAM 2%* 45 GM VAGINAL SCH (20:16)
[2017-02-27] MEDS: Acetaminophen TAB* 325 MG PO PRN (23:34)
[2017-02-28] MEDS ORDERED: guaiFENesin LIQ* 100 MG/5 ML UDC PO PRN (03:51)
[2017-02-28] MEDS: Levothyroxine TAB* 100 MCG TAB PO SCH (04:06)
[2017-02-28] MEDS: Insulin LISPRO* 1 UNITS UNIT SUBCUT SCH ×4 (09:19→22:31)
[2017-02-28] MEDS: Magnesium Oxide TAB* 400 MG PO SCH (09:23)
[2017-02-28] MEDS: Venlafaxine EXT RELEASE CAP* 75 MG PO SCH (09:23)
[2017-02-28] MEDS: metroNIDAZOLE TAB* 250 MG PO SCH ×3 (09:23→22:29)
[2017-02-28] MEDS: Sertraline* 25 MG TAB PO SCH (09:23)
[2017-02-28] MEDS: Apixaban* 5 MG TAB PO SCH ×2 (09:27→22:29)
[2017-02-28] MEDS: Fluticasone NASAL SPRAY 50MCG* 16 gm SPRAY BTL BOTH NARES SCH (09:27)
[2017-02-28] MEDS: Lactobacillus Acidophilu (GG)* 1 CAP CAP PO SCH ×2 (09:27→22:29)
[2017-02-28] MEDS: Insulin ISOPH/REG 70/30 (*) 1 UNITS UNIT SUBCUT SCH ×2 (10:20→17:36)
--- NOTE | 2017-02-28 10:23 | PN ---
Subjective Date of Service: 02/28/17 Interval History: HOSPITALIST PROGRESS NOTE Patient seen and examined at bedside. She is afraid of going home as she feels she won't be able to care for herself at home. Still has 2-3 episodes of liquid stool/day, but no abdominal pain, N/V. Tolerating diet well, enjoyed her poached eggs for breakfast today. Family History: Unchanged from Admission Social History: Unchanged from Admission Past Medical History: Unchanged from Admission Objective Active Medications: Acetaminophen (Tylenol Tab*) 650 mg PO Q6H PRN PRN Reason: PAIN Last Admin: 02/27/17 23:34 Dose: 650 mg Albuterol (Ventolin 2.5 Mg/3 Ml Neb.Romina*) 2.5 mg INH Q2H PRN PRN Reason: SOB/WHEEZING Apixaban (Eliquis*) 5 mg PO BID [facility] Last Admin: 02/28/17 09:27 Dose: 5 mg Dextrose (D50w Syringe 50 Ml*) 12.5 gm IV PUSH .FOR FS < 60 - SS PRN PRN Reason: FS < 60 Fluticasone Propionate (Flonase Nasal [place] 50mcg*) 2 spray BOTH NARES DAILY [facility] Last Admin: 02/28/17 09:27 Dose: 2 spray Guaifenesin (Robitussin*) 5 ml PO Q6H PRN PRN Reason: COUGH Last Admin: 02/28/17 04:06 Dose: 5 ml Guaifenesin/Dextromethorphan (Robitussin Dm Sugar Free*) 5 ml PO Q6H PRN PRN Reason: COUGH Last Admin: 02/26/17 22:10 Dose: 5 ml Insulin Human Isoph/Insulin Regular (Humulin 70/30 (*)) 30 units SUBCUT 0800, 1700 [facility] Last Admin: 02/28/17 10:20 Dose: 30 units Insulin Human Lispro (Humalog*) 0 units SUBCUT ACHS [facility] PRN Reason: Protocol Last Admin: 02/28/17 09:19 Dose: 2 units Lactobacillus Rhamnosus (Culturelle*) 1 cap PO BID [facility] Last Admin: 02/28/17 09:27 Dose: 1 cap Levothyroxine Sodium (Synthroid Tab*) 200 mcg PO QAM@0600 [facility] Last Admin: 02/28/17 04:06 Dose: 200 mcg Lidocaine HCl (Lidocaine 2% Jelly*) 1 applic TOPICAL Q4H PRN PRN Reason: VAGINAL IRRITATION Last Admin: 02/26/17 08:05 Dose: 1 applic Magnesium Oxide (Magox 400 Tab*) 400 mg PO DAILY [facility] Last Admin: 02/28/17 09:23 Dose: 400 mg Metronidazole (Flagyl Tab*) 500 mg PO TID [facility] Last Admin: 02/28/17 09:23 Dose: 500 mg Miconazole Nitrate (Miconazole Vaginal Cream 2%*) 1 applic VAGINAL BEDTIME [facility] Last Admin: 02/27/17 20:16 Dose: 1 applic Ondansetron HCl (Zofran Inj*) 4 mg IV Q4H PRN PRN Reason: NAUSEA Last Admin: 02/26/17 23:29 Dose: 4 mg Oxycodone/Acetaminophen (Percocet 5/325 Tab*) 1 tab PO Q6H PRN PRN Reason: PAIN Last Admin: 02/25/17 04:54 Dose: 1 tab Sertraline HCl (Zoloft*) 50 mg PO DAILY [facility] Last Admin: 02/28/17 09:23 Dose: 50 mg Venlafaxine HCl (Effexor Xr Cap*) 150 mg PO DAILY [facility] Last Admin: 02/28/17 09:23 Dose: 150 mg Vital Signs 02/27/17 02/27/17 02/28/17 20:13 23:26 03:34 Temperature 98.7 F 98.3 F 98.2 F Pulse Rate 94 99 101 Respiratory 20 20 16 Rate Blood Pressure 144/53 167/82 168/85 (mmHg) O2 Sat by Pulse 99 99 99 Oximetry Oxygen Devices in Use Now: None Appearance: Pleasant lady sitting up in bed in [facility], reading the newspaper Eyes: No Scleral Icterus Ears/Nose/Mouth/Throat: Mucous Membranes Moist Neck: Trachea Midline Respiratory: Symmetrical Chest Expansion and Respiratory Effort, Clear to Auscultation Cardiovascular: RRR - Normal S1 and S2 Abdominal: NL Sounds; No Tenderness; No Distention Neurological: Alert and Oriented x 3, NL Muscle Strength and Tone Lines/Tubes/Other Access: Clean, Dry and Intact Peripheral IV Nutrition: Taking PO's Result Diagrams: 02/25/17 06:16 02/25/17 06:16 Assess/Plan/Problems-Billing Assessment: Ms. Montemayor is a 71 yo female with PMH significant for HTN, CKD 3, GERD, PTSD, depression, chronic pain, DM and recent PNA who presented to the emergency room with complaints of weakness and diarrhea found to have C. diff colitis. - Patient Problems (1) C. difficile colitis Comment: - Leukocytosis is improved. - Stool frequency is decreasing. - Continue PO Flagyl. - Continue lactose free diet and probiotic. (2) Vaginal candidiasis Comment: - Received Fluconazole PO x 1 dose. - Continue miconazole vaginal cream. (3) Diabetes Comment: - Continue 70/30 and sliding scale coverage. (4) CKD (chronic kidney disease) stage 3, GFR 30-59 ml/min Comment: - Renal function back at baseline. (5) Hypothyroidism Comment: - Continue Levothyroxine. (6) Pulmonary emboli Comment: - Continue Eliquis. (7) DVT prophylaxis Comment: - Eliquis. (8) Full code status Status and Disposition: Inpatient for C diff colitis. Patient is afraid to go home as she feels she won' t be ready to take care of herself. CM to assist with help at home.
[2017-02-28] MEDS: Ondansetron INJ* 2 MG/ML VIAL IV PRN ×2 (13:24→22:28)
[2017-02-28] MEDS: Miconazole VAGINAL CREAM 2%* 45 GM VAGINAL SCH (22:35)
[2017-02-28] MEDS: Acetaminophen TAB* 325 MG PO PRN (23:05)
[2017-03-01] MEDS: Levothyroxine TAB* 100 MCG TAB PO SCH (05:53)
[2017-03-01 09:41] VITALS: BP 169/73
[2017-03-01] MEDS: Fluticasone NASAL SPRAY 50MCG* 16 gm SPRAY BTL BOTH NARES SCH (10:38)
[2017-03-01] MEDS: Apixaban* 5 MG TAB PO SCH (10:39)
[2017-03-01] MEDS: Ondansetron INJ* 2 MG/ML VIAL IV PRN (10:39)
[2017-03-01] MEDS: metroNIDAZOLE TAB* 250 MG PO SCH ×2 (10:39→13:17)
[2017-03-01] MEDS: Sertraline* 25 MG TAB PO SCH (10:39)
[2017-03-01] MEDS: Lactobacillus Acidophilu (GG)* 1 CAP CAP PO SCH (10:39)
[2017-03-01] MEDS: Magnesium Oxide TAB* 400 MG PO SCH (10:39)
[2017-03-01] MEDS: Venlafaxine EXT RELEASE CAP* 75 MG PO SCH (10:39)
[2017-03-01] MEDS: Insulin LISPRO* 1 UNITS UNIT SUBCUT SCH ×2 (10:40→13:17)
[2017-03-01] MEDS: Insulin ISOPH/REG 70/30 (*) 1 UNITS UNIT SUBCUT SCH (10:41)
--- NOTE | 2017-03-01 12:54 | PN ---
Progress Note - Progress Note Date of Service: 03/01/17 Note: Time spent on discharge 50 minutes.
--- NOTE | 2017-03-02 00:20 | DS ---
CC: Dr. Zurita * DISCHARGE SUMMARY: DATE OF ADMISSION: 02/22/17 DATE OF DISCHARGE: 03/01/17 HOSPITAL COURSE: This 71-year-old woman presented with diarrhea. She had recently been treated for pneumonia with cefuroxime. She was a resident of [facility] as well in the past month. She presented complaining of diarrhea. She had been home about 5 days. She said she basically had diarrhea every day. She was dizzy and fell down. The rest of the history is detailed in the admission note. Testing did show C. Difficile in her stool by PCR. She was started on metronidazole. She was placed on 70/30 insulin twice daily with coverage. She does not use coverage at home. She actually does use 70/30 insulin, not 70/25 as initially was entered into the computer. She improved quite well to her baseline. She had one semi-formed stool on the day of discharge. She had 1 to 2+ edema of the legs. On discharge, she said she was quite puffy and felt like she was blown up like a balloon. I note in the past she had been on losartan and hydrochlorothiazide, the latter being 25 mg. She has not had this for some time. I am restarting her hydrochlorothiazide as a single agent as she is no longer on losartan. FINAL DIAGNOSES: 1. Clostridium difficile colitis. 2. Diabetes. 3. Hypothyroidism. 4. Chronic kidney disease. 5. Hypertension. 6. Edema. DISCHARGE MEDICATIONS: 1. Hydrochlorothiazide 25 mg daily. 2. 70/30 insulin 34 units 8 a.m. and 5 p.m. daily. 3. Venlafaxine Extended Release 150 mg daily. 4. Metronidazole 500 mg t.i.d. for 7 more days. 5. Sertraline 50 mg daily. 6. Oxycodone/acetaminophen 5/325 mg 1 every 6 hours p.r.n. 7. Apixaban 5 mg daily. 8. Fluticasone nasal spray, 2 sprays both nares. 9. Levothyroxine 200 mcg daily. 10. Senna 1 at h.s. p.r.n. 11. Guaifenesin ER 1200 mg b.i.d. [id number]/[facility] #: [id number] [facility]
[2017-03-02] MEDS ORDERED: Hydrochlorothiazide TAB* 25 MG PO SCH (09:00)
== END 2017-03-01 17:30 | disposition home health service (06) | DRG 373 ==
LOC: ED 21:27 → MED 02-21 04:07 → OBSVTOIN 02-22 13:00
PROVIDERS: ADMIT Internal Medicine; ATTEND Internal Medicine
DX: A04.72 Enterocolitis due to Clostridium difficile, not specified as recurrent (principal); E11.22 Type 2 diabetes mellitus with diabetic chronic kidney disease; N18.3 Chronic kidney disease, stage 3 (moderate); E11.319 Type 2 diabetes mellitus with unspecified diabetic retinopathy without macular edema; E03.9 Hypothyroidism, unspecified; J45.909 Unspecified asthma, uncomplicated; B37.3 Candidiasis of vulva and vagina; I12.9 Hypertensive chronic kidney disease with stage 1 through stage 4 chronic kidney disease, or unspecified chronic kidney disease; Z79.4 Long term (current) use of insulin; Z79.01 Long term (current) use of anticoagulants; Z91.81 History of falling; K21.9 Gastro-esophageal reflux disease without esophagitis; F43.10 Post-traumatic stress disorder, unspecified; F32.9 Major depressive disorder, single episode, unspecified; G89.29 Other chronic pain; Z88.8 Allergy status to other drugs, medicaments and biological substances; Z87.891 Personal history of nicotine dependence; Z86.711 Personal history of pulmonary embolism; K58.9 Irritable bowel syndrome, unspecified; M19.90 Unspecified osteoarthritis, unspecified site; F41.0 Panic disorder [episodic paroxysmal anxiety]; Z91.410 Personal history of adult physical and sexual abuse; Z85.3 Personal history of malignant neoplasm of breast; Z83.6 Family history of other diseases of the respiratory system; Z82.3 Family history of stroke; E87.6 Hypokalemia
CPT/HCPCS: 36415; 70450; 71020; 72125; 74020; 76705; 80048; 80053; 81003; 81015; 83036; 83630; 83690; 83735; 84443; 85025; 86140; 87045; 87046; 87077; 87186; 87493; 87899; A9270-GY; J2405; J3475

== ENCOUNTER 2017-03-15 13:57 | Inpatient (IN) | payer MEDICARE ==
[2017-03-15] MEDS ORDERED: NS 0.9% 1000 ML* 1,000 ML IV SCH ×2 (14:45→20:45)
[2017-03-15] MEDS ORDERED: Ondansetron INJ* 2 MG/ML VIAL IV ONE (14:47)
[2017-03-15 14:59] LABS: Hematocrit 33 % (35-47); Hemoglobin 10.8 g/dl (12.0-16.0); Mean Corpuscular HGB Conc 33 g/dl (31-36); Mean Corpuscular Hemoglobin 29 pg (27-31); Mean Corpuscular Volume 87 fL (80-97); Mean Platelet Volume 8 um3 (7.4-10.4); Red Blood Count 3.78 10^6/ul (4.0-5.4); Red Cell Distribution Width 17 % (10.5-15); White Blood Count 19.6 10^3/ul (3.5-10.8)
[2017-03-15 15:11] LABS: Albumin 3.8 g/dL (3.2-5.2); BUN/Creatinine Ratio 15.1 (8-20); C Reactive Protein 43.69 mg/L (< 5.00); Calcium 9.2 mg/dL (8.6-10.3); EGFR African American 43.1 (>60); EGFR Non-African American 33.5 (>60); Globulin 3.5 g/dL (2-4); Magnesium 1.5 mg/dL (1.9-2.7); Potassium 3.6 mmol/L (3.5-5.0); Total Bilirubin 0.7 mg/dL (0.2-1.0); Total Protein 7.3 g/dL (6.4-8.9)
--- NOTE | 2017-03-15 15:39 | RAD ---
HISTORY: Abdominal pain, breast cancer COMPARISONS: February 21, 2017 VIEWS: 1: frontal portable view of the chest at 3:15 PM FINDINGS: LINES AND TUBES: None. CARDIOMEDIASTINAL SILHOUETTE: The cardiomediastinal silhouette is normal for portable technique. PLEURA: The costophrenic angles are sharp. No pleural abnormalities are noted. LUNG PARENCHYMA: The lungs are clear. ABDOMEN: The upper abdomen is clear. There is no subphrenic gas. BONES AND SOFT TISSUES: Degenerative changes are noted along the spine. IMPRESSION: NO ACTIVE CARDIOPULMONARY DISEASE.
[2017-03-15] MEDS ORDERED: Iodixanol* (CONTRAST) 320 MG/ML 100 ML SDV IV ONE (16:01)
--- NOTE | 2017-03-15 16:16 | RAD ---
INDICATION: Diffuse abdominal pain. Vomiting. COMPARISON: Hepatic sonogram February 21, 2017 TECHNIQUE: Axial source images were obtained from the hemidiaphragms to the symphysis pubis following administration of oral and intravenous contrast. 100 mL Visipaque 320 was utilized. Coronal and sagittal reconstructed images were acquired. Lung bases: The lung bases are clear. Liver: The liver is normal in size. There are no masses. There is no ductal dilatation. Gallbladder: Cholecystectomy. Spleen: The spleen is normal in size. There are no masses. Pancreas: The pancreas is very atrophic. There is no focal mass. Adrenal glands: There is no evidence of adrenal mass. Kidneys: The kidneys are normal in size and position. There are prompt nephrograms and there is prompt excretion bilaterally. There are no renal parenchymal masses. There is no evidence of nephrolithiasis. Adenopathy: There is no evidence of adenopathy by size criteria. Fluid collections: There are no free or localized fluid collections. Vessels:There are no significant atherosclerotic changes involving the aorta. There is no focal aneurysm. The iliac vessels are normal in caliber. The IVC appears normal. GI tract: The upper GI tract is unremarkable. There is mild diffuse bowel wall edema of the colon. This is most prominent in the right colon and sigmoid colon. Findings may be related to a colitis. There is no obstruction or perforation. There is no free intraperitoneal air. Pelvic organs: The uterus and adnexa appear normal Bladder: There are no bladder masses. Abdominal and pelvic soft tissues: There is a tiny periumbilical hernia. Osseous structures: There are no acute osseous findings. Other: None IMPRESSION: CT FINDINGS SUGGEST POSSIBLE MILD DIFFUSE COLITIS.
[2017-03-15] MEDS ORDERED: metroNIDAZOLE IV 500 MG/100ML* 100 ML IVPB ONE (18:03)
[2017-03-15] MEDS ORDERED: Vancomycin(*) 1,000 MG in NS 0.9% 250 ML* 250 ML IVPB ONE (18:23)
[2017-03-15] MEDS ORDERED: Dextrose 50% Syringe 50 ML* 25 GM/50 ML SYRINGE IV PUSH PRN (20:39)
[2017-03-15] MEDS ORDERED: guaiFENesin ER TAB 600 MG PO PRN (20:40)
[2017-03-15] MEDS ORDERED: Acetaminophen TAB* 325 MG PO PRN (20:41)
[2017-03-15] MEDS ORDERED: Insulin LISPRO* 1 UNITS UNIT SUBCUT ONE (20:56)
[2017-03-15] MEDS: Ondansetron INJ* 2 MG/ML VIAL IV PRN ×2 (21:29→22:39)
[2017-03-15] MEDS: metroNIDAZOLE TAB* 250 MG PO SCH (21:29)
[2017-03-15] MEDS ORDERED: Heparin VIAL(*) 5000 UNITS/ML VIAL (FIVE THOUSAND) SUBCUT SCH (22:00)
[2017-03-15] MEDS: Apixaban* 5 MG TAB PO SCH (23:23)
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
--- NOTE | 2017-03-16 00:32 | HP ---
CC: Dr. Zurita* [facility] MEDICINE HISTORY AND PHYSICAL: DATE OF ADMISSION: 03/15/17 PRIMARY CARE PHYSICIAN: Dr. Zurita. ATTENDING PHYSICIAN: Dr. Dillan Gayle* (dictation provided by Farzaneh Guthrie NP ). CHIEF COMPLAINT: Nausea, vomiting, diarrhea, and abdominal pain. HISTORY OF PRESENT ILLNESS: Ms. Montemayor is a 71-year-old female with a past medical history of recent admission to our hospital for C. difficile colitis, discharged on 03/01/17 to complete a course of Flagyl, who presents to the hospital with concern for return of nausea, vomiting, and diarrhea with abdominal pain. Ms. Montemayor also has a history of type 2 diabetes, which is insulin-dependent, hypertension, and CKD stage 3. Ms. Montemayor states that before leaving the hospital earlier this month that she was feeling much better and that her diarrhea had almost stopped. She followed up with Dr. Zurita and did complete the course of flagyl as prescribed. The patient returns with nausea, vomiting, and diarrhea. She has had pain along her lower abdomen. In the emergency room, Ms. Montemayor had white blood cell count elevated to 19.6. She has a CRP of 43.69, which actually is an improvement from 02/21/17 where it was 137.44. She is febrile on arrival to 101.8. CT abdomen and pelvis showed concern for mild diffuse colitis. The patient was given Flagyl for a concern for reoccurrence of C. diff colitis. PAST MEDICAL HISTORY: 1. C. diff, discharged from the hospital on 03/01/17. 2. Type 2 diabetes, insulin-dependent. 3. Right-sided pneumonia, treated at [facility] [place] 02/03/17 to 02/06/17. 4. Hypertension. 5. CKD stage 3. 6. GERD. 7. PTSD. 8. Depression. 9. Chronic pain. 10. Diabetic retinopathy. MEDICATIONS: 1. Guaifenesin ER 1200 mg p.o. b.i.d. p.r.n. 2. Senna 2 tabs at bedtime p.r.n. 3. Levothyroxine 200 mcg p.o. q.a.m. 4. Fluticasone nasal spray 2 sprays both nares daily. 5. Apixaban 5 mg p.o. b.i.d. 6. Oxycodone with acetaminophen 5/325 one tab p.o. q.6 hours p.r.n. 7. Venlafaxine 150 mg p.o. daily. 8. Sertraline 50 mg p.o. daily. 9. Insulin 70/30, 34 units subcutaneously at 8 o'clock a.m. and 5 p.m. 10. Hydrochlorothiazide 25 mg p.o. daily. ALLERGIES: HYDROCODONE and METFORMIN. FAMILY HISTORY: Reviewed and noncontributory. The patient has poor recollection of family history. SOCIAL HISTORY: The patient smoked 1 pack a day from 1966 to 1983. She drinks alcohol rarely. She lives home alone. She ambulates with a walker. Her healthcare proxy is Peewee Rome, her significant other. REVIEW OF SYSTEMS: A 14-point review of systems was completed with Ms. Montemayor and all those not mentioned above were negative. PHYSICAL EXAMINATION GENERAL: Ms. Montemayor is sitting up in the bed. She appears tired, but in no acute distress. VITAL SIGNS: Temperature 101.8, heart rate 112, O2 saturation 100% on room air , respiratory rate 18, blood pressure 161/65. LUNGS: Clear to auscultation bilaterally with no accessory muscle use and good aeration. HEART: S1, S2. No murmur, rub, or gallop and regular. ABDOMEN: Soft. There is tenderness along the lower abdomen. Bowel sounds are positive. There is no rebound or guarding. EXTREMITIES: No cyanosis or edema. SKIN: Intact. NEUROLOGIC: She is alert. She is oriented x3. She moves all extremities equally. There is no facial asymmetry or focal weakness. Extraocular movements are intact. DIAGNOSTIC STUDIES/LAB DATA: WBC 19.6, hemoglobin 10.8, hematocrit 33, and platelet count 394. INR 1.11. Sodium 135, potassium 3.6, chloride 98, serum bicarbonate 27, BUN 23, creatinine 1.52, glucose 287, lactic acid 1.7, magnesium 1.5. CRP 43.69. BNP 140. Abdomen and pelvis CT is read as follows: "CT findings suggest possible mild diffuse colitis." Chest x-ray is read as follows: No active cardiopulmonary disease. EKG shows sinus tachycardia with a heart rate about 100. No evidence of ischemia. ASSESSMENT: Ms. Montemayor is a 71-year-old female with a past medical history of Clostridium difficile, was discharged from the hospital on 03/01/17 as well as insulin-dependent diabetes and chronic kidney disease stage 3, who presents today to the hospital with concern for nausea, vomiting, diarrhea and lower abdominal pain with likely return of Clostridium difficile colitis based on symptoms and CT scan results. Our plan is for inpatient admission as expected length of stay would be greater than 2 days for the followin. Nausea, vomiting, diarrhea, and abdominal pain: I suspect the patient likely has recurrence of Clostridium difficile. She did state that her symptoms resolved, but that they came back as soon as she finished her Flagyl. She has only mild diffuse colitis seen on the CT scan. She has been tolerating oral intake somewhat. Plans are to treat with Flagyl as this is her first initial occurrence and it does not appear that her disease is severe. She will have IV fluids. She will have Zofran available for nausea. She does meet sepsis criteria with mild tachycardia and fever. Her lactic acid is normal. Blood cultures have been sent. 2. Type 2 diabetes: Plan to continue her home 70/30 insulin and start lispro sliding scale with meals. 3. Chronic kidney disease stage 3: Creatinine is at baseline. 4. Code status: Full code. 5. DVT prophylaxis with heparin subcu. 6. Disposition to medical floor. TIME SPENT: Approximately 60 minutes were spent on the admission of this patient, more than half time spent with the patient at the bedside reviewing the events leading up to this hospitalization, performing the physical examination, and reviewing my plan of care. FARZANEH GUTHRIE, KENA [id number]/[facility] #: [id number] AZAEL
[2017-03-16] MEDS: Levothyroxine TAB* 100 MCG TAB PO SCH (05:28)
[2017-03-16] MEDS: Ondansetron INJ* 2 MG/ML VIAL IV PRN ×2 (05:28→13:06)
[2017-03-16 07:13] LABS: Hematocrit 28 % (35-47); Hemoglobin 8.9 g/dl (12.0-16.0); Mean Corpuscular HGB Conc 32 g/dl (31-36); Mean Corpuscular Hemoglobin 28 pg (27-31); Mean Corpuscular Volume 88 fL (80-97); Mean Platelet Volume 8 um3 (7.4-10.4); Red Blood Count 3.13 10^6/ul (4.0-5.4); Red Cell Distribution Width 17 % (10.5-15); White Blood Count 15.5 10^3/ul (3.5-10.8)
[2017-03-16 07:47] LABS: BUN/Creatinine Ratio 12.9 (8-20); Calcium 8.2 mg/dL (8.6-10.3); EGFR African American 37.6 (>60); EGFR Non-African American 29.3 (>60); Potassium 3.4 mmol/L (3.5-5.0)
[2017-03-16] MEDS ORDERED: Insulin ISOPH/REG 70/30 (*) 1 UNITS UNIT SUBCUT SCH (08:00)
[2017-03-16] MEDS: Insulin LISPRO* 1 UNITS UNIT SUBCUT SCH ×3 (09:03→18:18)
[2017-03-16] MEDS: Venlafaxine EXT RELEASE CAP* 75 MG PO SCH (09:06)
[2017-03-16] MEDS: Sertraline* 25 MG TAB PO SCH (09:06)
[2017-03-16] MEDS: metroNIDAZOLE TAB* 250 MG PO SCH (09:06)
[2017-03-16] MEDS: Fluticasone NASAL SPRAY 50MCG* 16 gm SPRAY BTL BOTH NARES SCH (09:15)
[2017-03-16] MEDS: Apixaban* 5 MG TAB PO SCH ×2 (09:15→21:26)
[2017-03-16] MEDS ORDERED: Insulin LISPRO* 1 UNITS UNIT SUBCUT ONE (11:53)
[2017-03-16] MEDS: oxyCODONE/Acetamin 5/325 MG* TAB PO PRN ×2 (13:04→22:05)
[2017-03-16] MEDS: Vancomycin CAP* 125 MG CAP PO SCH ×3 (13:04→21:26)
--- NOTE | 2017-03-16 14:06 | CONS ---
CONSULTATION REPORT: DATE OF CONSULT: 03/16/17 REQUESTING PROVIDER: Lani Tadeo NP CONSULTING SERVICE: Infectious Disease. REASON FOR CONSULT: Recurrent diarrhea. IMPRESSION: 1. Recently treated for Clostridium difficile diarrhea after antibiotics for lower respiratory trac t infection, had a course of Flagyl with near resolution of symptoms and then worsening 2 or 3 days after stopping, which has included multiple liquid explosive stools, a Clostridium difficile test is positive, I do think this is consistent with Clostridium difficile colitis. 2. Type 2 diabetes. 3. Chronic kidney disease. RECOMMENDATION: Stop Flagyl, start vancomycin 125 mg by mouth 4 times a day for 2 weeks and then we will change her to 125 mg by mouth twice a day for 2 weeks. We discussed that there is no way to k now if there will be a relapse or that if a longer pulsed taper course will make any difference, so I think this is a reasonable starting point, she is in agreement with trying it. HISTORY OF PRESENT ILLNESS: This is a 71-year-old diabetic woman admitted with severe diarrhea. Eliazar piña had been in the hospital in January with pneumonia. While at [facility], she developed explosive stools multiple times a day. She had a C. diff test that was positive when she was admitted here o n early February. She was started on oral Flagyl with improvement in her symptoms, she completed as an outpatient. Her stools are getting to once or twice a day, soft, semi-formed without abdominal p ain. She stopped the medicine on Tuesday. By Tuesday, she had return of multiple liquid stools per d ay that is pretty explosive, some diffuse abdominal cramping. She had bowel movements that woke her up from sleep. She has been wearing Depend because of frequent leakage. She came to the hospital. CT of the abdomen and pelvis on 03/15/17 showed mild diffuse colitis. An other C. diff test was sent, was positive. She is on oral Flagyl since last night. She has had 4 s tools that are been liquid and foul smelling today. PAST MEDICAL HISTORY: 1. C. diff diarrhea. 2. Type 2 diabetes. 3. Pneumonia. 4. Hypertension. 5. Chronic kidney disease, stage 3. 6. Gastroesophageal reflux disease. 7. Posttraumatic stress disorder. 8. Depression. 9. Chronic pain. 10. Diabetic retinopathy. MEDICATIONS: 1. Tylenol. 2. Eliquis. 3. Insulin. 4. Levothyroxine. 5. Zoloft. 6. Flagyl 500 mg by mouth 3 times a day. 7. Effexor. 8. Guaifenesin. ALLERGIES: HYDROCODONE, METFORMIN. FAMILY HISTORY: No recurrent infections. SOCIAL HISTORY: She has been living at [facility]. She has no travel or sick contacts. REVIEW OF SYSTEMS: All negative 14-point review of systems except as noted above. PHYSICAL EXAM: Vital signs: Temperature is 37, heart rate 90, blood pressure 125/50, O2 sat is 98% on room air, respiratory rate 18. In general, she is awake, not in distress. Neurologic: She is oriented x3. Follows all commands. HEENT: There is no conjunctival hemorrhage. Oropharynx is with out lesions. Neck: Supple without nuchal rigidity. Lymph Nodes: There is no inguinal, axillary, or epitrochlear lymphadenopathy. Heart has regular rate and rhythm without murmurs, rubs, or gallop s. Lungs are clear to auscultation bilaterally. Abdomen: Soft, nontender, and nondistended. Ther e are bowel sounds present. Skin: There is no rash or splinter hemorrhages. Musculoskeletal: Ther e is no spine tenderness to palpation. LABORATORY DATA: White blood cell count 15 down from 19. Creatinine is 1.7 up from 1.5. CRP 43. Please see impressions and recommendations as outlined above, which I have discussed with Lani boland NP. Thank you for asking me to see Ms. Montemayor in consultation. [id number]/[facility] #: [id number]
[2017-03-16] MEDS ORDERED: Potassium Chloride LIQUID* 20 MEQ PACKET PO ONE (15:45)
--- NOTE | 2017-03-16 15:53 | PN ---
Subjective Date of Service: 03/16/17 Interval History: Patient seen and examined at bedside. Patient state nausea improved. Taking POs. Has had 2 loose BMs today thus far. 2 assist to bathroom per nursing. Family History: Unchanged from Admission Social History: Unchanged from Admission Past Medical History: Unchanged from Admission Objective Active Medications: Acetaminophen (Tylenol Tab*) 650 mg PO Q6H PRN Apixaban (Eliquis*) 5 mg PO BID [facility] Dextrose (D50w Syringe 50 Ml*) 12.5 gm IV PUSH .FOR FS < 60 - SS PRN Fluticasone Propionate (Flonase Nasal [place] 50mcg*) 2 spray BOTH NARES DAILY [facility] Guaifenesin (Mucinex*) 1,200 mg PO BID PRN Sodium Chloride (Ns 0.9% 1000 Ml*) 1,000 mls @ 75 mls/hr IV PER RATE [facility] Insulin Human Isoph/Insulin Regular (Humulin 70/30 (*)) 34 units SUBCUT 0800, 1700 [facility] Insulin Human Lispro (Humalog*) 0 units SUBCUT AC [facility] Levothyroxine Sodium (Synthroid Tab*) 200 mcg PO DAILY@0600 [facility] Ondansetron HCl (Zofran Inj*) 4 mg IV Q6H PRN Oxycodone/Acetaminophen (Percocet 5/325 Tab*) 1 tab PO Q6H PRN Potassium Chloride (Klor-Con Liquid*) 40 meq PO ONCE ONE Sertraline HCl (Zoloft*) 50 mg PO DAILY [facility] Vancomycin HCl (Vancomycin Cap*) 125 mg PO QID [facility] Venlafaxine HCl (Effexor Xr Cap*) 150 mg PO DAILY [facility] 03/16/17 03/16/17 07:49 13:04 Temperature 99.0 F Pulse Rate 91 Respiratory 18 18 Rate Blood Pressure 124/51 (mmHg) O2 Sat by Pulse 98 Oximetry Oxygen Devices in Use Now: None Appearance: sitting up in chair, NAD Eyes: No Scleral Icterus, PERRLA Ears/Nose/Mouth/Throat: NL Teeth, Lips, Gums Neck: NL Appearance and Movements; NL JVP Respiratory: Symmetrical Chest Expansion and Respiratory Effort, Clear to Auscultation Cardiovascular: NL Sounds; No Murmurs; No JVD, RRR Abdominal: - - +Bs, slightly distended Extremities: No Edema Skin: No Rash or Ulcers Neurological: Alert and Oriented x 3, NL Muscle Strength and Tone Lines/Tubes/Other Access: Clean, Dry and Intact Peripheral IV Result Diagrams: 03/16/17 06:08 03/16/17 06:08 Microbiology and Other Data: Microbiology 03/15/17 19:40 Stool Gross Appearance - Final Stool Shiga Toxin I & II - Final Negative Shiga Toxin 1 & 2 C. difficile DNA Amplification - Final 027 Presumptive POSITIVE Toxigenic C.diff POSITIVE Stool Occult Blood (ANGELA) - Final Cryptosporidium/Giardia - Final Neg Cryptosporidium/Giardia 03/15/17 19:40 Stool Gross Appearance - Final Stool Stool Lactoferrin - Final Assess/Plan/Problems-Billing Pt is a 71 y/o F w/ hx of diabetes, CKD who was recently discharged on 03/01/17 from [facility] for C. Diff colitis who returns now with nausea, vomiting, diarrhea and a CT scan showing diffuse colitis - Patient Problems (1) C. difficile colitis Comment: Leukocytosis improved. Appreciate ID consult. Continue PO Vancomycin. Plan to tx with Vanco 4x daily for 2 weeks and then 2x daily for additional 2 weeks. Will change to lactose free diet and add probiotic. (2) Diabetes Comment: Sugars elevated this morning. Will increase 70/30 and continue sliding scale coverage. (3) HTN (hypertension) Comment: Hold HCTZ for now. BP stable. (4) CKD (chronic kidney disease) stage 3, GFR 30-59 ml/min Comment: Cr. slightly up at 1.7. Continue IVF until tomorrow AM. (5) Depression Comment: Continue Effexor and Zoloft. (6) DVT prophylaxis Comment: Ayad. (7) Full code status Status and Disposition: Inpatient for C. diff colitis. Plan to discharge home when stable.
[2017-03-16] MEDS: Lactobacillus Acidophilu (GG)* 1 CAP CAP PO SCH (18:16)
[2017-03-16] MEDS: Insulin ISOPH/REG 70/30 (*) 1 UNITS UNIT SUBCUT SCH (18:18)
[2017-03-16] MEDS: NS 0.9% 1000 ML* 1,000 ML IV SCH (19:50)
[2017-03-17] MEDS: Levothyroxine TAB* 100 MCG TAB PO SCH (05:37)
[2017-03-17] MEDS: NS 0.9% 1000 ML* 1,000 ML IV SCH ×2 (05:37→23:33)
[2017-03-17] MEDS: oxyCODONE/Acetamin 5/325 MG* TAB PO PRN (05:37)
[2017-03-17 07:44] LABS: Hematocrit 25 % (35-47); Hemoglobin 8.4 g/dl (12.0-16.0); Mean Corpuscular HGB Conc 33 g/dl (31-36); Mean Corpuscular Hemoglobin 29 pg (27-31); Mean Corpuscular Volume 87 fL (80-97); Mean Platelet Volume 8 um3 (7.4-10.4); Red Blood Count 2.91 10^6/ul (4.0-5.4); Red Cell Distribution Width 16 % (10.5-15); White Blood Count 8.7 10^3/ul (3.5-10.8)
[2017-03-17 08:11] LABS: BUN/Creatinine Ratio 14.3 (8-20); Calcium 8.1 mg/dL (8.6-10.3); EGFR African American 32.2 (>60); Potassium 3.7 mmol/L (3.5-5.0)
[2017-03-17] MEDS: Vancomycin CAP* 125 MG CAP PO SCH ×4 (08:58→22:24)
[2017-03-17] MEDS: Sertraline* 25 MG TAB PO SCH (08:58)
[2017-03-17] MEDS: Venlafaxine EXT RELEASE CAP* 75 MG PO SCH (08:58)
[2017-03-17] MEDS: Lactobacillus Acidophilu (GG)* 1 CAP CAP PO SCH (08:58)
[2017-03-17] MEDS: Apixaban* 5 MG TAB PO SCH ×2 (08:59→22:24)
[2017-03-17] MEDS: Fluticasone NASAL SPRAY 50MCG* 16 gm SPRAY BTL BOTH NARES SCH (08:59)
[2017-03-17] MEDS: Insulin LISPRO* 1 UNITS UNIT SUBCUT SCH ×3 (09:01→17:44)
[2017-03-17] MEDS: Insulin ISOPH/REG 70/30 (*) 1 UNITS UNIT SUBCUT SCH ×2 (09:01→17:44)
--- NOTE | 2017-03-17 09:29 | PN ---
Subjective Date of Service: 03/17/17 Interval History: This is a 71 yo female admitted with recurrent c.diff. She is currently being treated with oral vancomycin. Patient reports her diarrhea is slowing. She was up once last night and once so far this am. Mild abd cramping. No n/v. Afebrile. Objective Active Medications: Acetaminophen (Tylenol Tab*) 650 mg PO Q6H PRN PRN Reason: PAIN Apixaban (Eliquis*) 5 mg PO BID [facility] Last Admin: 03/17/17 08:59 Dose: 5 mg Dextrose (D50w Syringe 50 Ml*) 12.5 gm IV PUSH .FOR FS < 60 - SS PRN PRN Reason: FS < 60 Fluticasone Propionate (Flonase Nasal [place] 50mcg*) 2 spray BOTH NARES DAILY [facility] Last Admin: 03/17/17 08:59 Dose: 2 spray Guaifenesin (Mucinex*) 1,200 mg PO BID PRN PRN Reason: CONGESTION Sodium Chloride (Ns 0.9% 1000 Ml*) 1,000 mls @ 75 mls/hr IV PER RATE [facility] Last Admin: 03/17/17 05:37 Dose: 75 mls/hr Insulin Human Isoph/Insulin Regular (Humulin 70/30 (*)) 40 units SUBCUT 0800, 1700 [facility] Last Admin: 03/17/17 09:01 Dose: 40 units Insulin Human Lispro (Humalog*) 0 units SUBCUT AC [facility] PRN Reason: Protocol Last Admin: 03/17/17 09:01 Dose: 3 units Lactobacillus Rhamnosus (Culturelle*) 1 cap PO DAILY [facility] Last Admin: 03/17/17 08:58 Dose: 1 cap Levothyroxine Sodium (Synthroid Tab*) 200 mcg PO DAILY@0600 [facility] Last Admin: 03/17/17 05:37 Dose: 200 mcg Ondansetron HCl (Zofran Inj*) 4 mg IV Q6H PRN PRN Reason: NAUSEA Last Admin: 03/16/17 13:06 Dose: 4 mg Oxycodone/Acetaminophen (Percocet 5/325 Tab*) 1 tab PO Q6H PRN PRN Reason: PAIN Last Admin: 03/17/17 05:37 Dose: 1 tab Sertraline HCl (Zoloft*) 50 mg PO DAILY [facility] Last Admin: 03/17/17 08:58 Dose: 50 mg Vancomycin HCl (Vancomycin Cap*) 125 mg PO QID [facility] Last Admin: 03/17/17 08:58 Dose: 125 mg Venlafaxine HCl (Effexor Xr Cap*) 150 mg PO DAILY [facility] Last Admin: 03/17/17 08:58 Dose: 150 mg Vital Signs: Temp Pulse Resp BP Pulse Ox 97.5 F 99 16 134/65 98 03/17/17 07:16 03/17/17 07:16 03/17/17 07:37 03/17/17 07:16 03/17/17 07:16 Oxygen Devices in Use Now: None Appearance: Relatively well appearing elderly female in NAD Respiratory: Symmetrical Chest Expansion and Respiratory Effort, Clear to Auscultation Cardiovascular: NL Sounds; No Murmurs; No JVD, RRR Abdominal: NL Sounds; No Tenderness; No Distention Extremities: No Edema Skin: No Rash or Ulcers Neurological: Alert and Oriented x 3 Result Diagrams: 03/17/17 07:25 03/17/17 07:25 Additional Lab and Data: . Microbiology and Other Data: Microbiology 03/15/17 19:40 Stool Gross Appearance - Final Stool Shiga Toxin I & II - Final Negative Shiga Toxin 1 & 2 C. difficile DNA Amplification - Final 027 Presumptive POSITIVE Toxigenic C.diff POSITIVE Stool Occult Blood (ANGELA) - Final Cryptosporidium/Giardia - Final Neg Cryptosporidium/Giardia 03/15/17 19:40 Stool Gross Appearance - Final Stool Stool Lactoferrin - Final Assess/Plan/Problems-Billing Pt is a 71 y/o F w/ hx of diabetes, CKD who was recently discharged on 03/01/17 from [facility] [place] for C. Diff colitis who returns now with nausea, vomiting, diarrhea and a CT scan showing diffuse colitis - Patient Problems (1) C. difficile colitis Comment: Leukocytosis improved. Appreciate ID consult. Continue PO Vancomycin. Plan to tx with Vanco 4x daily for 2 weeks and then 2x daily for additional 2 weeks. (2) Depression Comment: Stable Continue Effexor and Zoloft. (3) Diabetes Comment: Improved glycemic control Cont current dose of 70/30 (4) HTN (hypertension) Comment: Normotensive HCTZ/losartan held Resume atenolol (5) CKD (chronic kidney disease) stage 3, GFR 30-59 ml/min Comment: Cr slightly above baseline Cont to monitor Hold HCTZ/ARB (6) Full code status (7) DVT prophylaxis Comment: Eliquis. Status and Disposition: Inpatient for C. diff colitis. Anticipate likely dc tomorrow.
--- NOTE | 2017-03-17 10:03 | PN ---
Progress Note - Progress Note Date of Service: 03/17/17 SOAP: Subjective: CC: Cdif colitis HPI: 71 year old woman with recent treatment for Cdif, improved with flagyl, symptoms worsened 2 days after stopping and had return of multiple liquid stools per day w decreased appetite. Now has 2-3 soft stools per day without abd pain and appetite is improved. No fever or rash. Objective: [] Vital Signs Temp 36.4 C 03/17/17 07:16 Pulse 99 03/17/17 07:16 Resp 16 03/17/17 09:42 BP 134/65 03/17/17 07:16 Pulse Ox 98 03/17/17 07:16 Intake & Output 03/16/17 03/17/17 03/17/17 18:59 06:59 18:59 Intake Total 240 3374 480 Output Total 300 Balance 240 3374 180 Intake: IV Fluids 2974 NS (0.9%) 2974 Oral 240 400 480 Output: Urine 300 Other: Estimated Void Small Small Medium # Bowel Movements 2 1 1 Estimated Stool Amount Large Medium Medium # Voids 1 1 1 Gen:awake, no distress HEENT: No thrush Heart:RRR no murmur Lungs:CTA BL Abd:+BS NTND soft Skin: no rash Laboratory Results - last 24 hr 03/16/17 03/16/17 03/16/17 11:41 12:34 17:08 WBC RBC Hgb Hct MCV MCH MCHC RDW Plt Count MPV Neut % (Auto) Lymph % (Auto) [place] % (Auto) Eos % (Auto) Baso % (Auto) Absolute Neuts (auto) Absolute Lymphs (auto) Absolute Monos (auto) Absolute Eos (auto) Absolute Basos (auto) Absolute Nucleated RBC Nucleated RBC % Sodium Potassium Chloride Carbon Dioxide Anion Gap BUN Creatinine Est GFR ( Amer) Est GFR (Non-Af Amer) BUN/Creatinine Ratio Glucose 394 H POC Glucose (mg/dL) 443 H* 209 H Calcium 03/16/17 03/17/17 03/17/17 22:04 07:25 07:25 WBC 8.7 RBC 2.91 L Hgb 8.4 L Hct 25 L MCV 87 MCH 29 MCHC 33 RDW 16 H Plt Count 326 MPV 8 Neut % (Auto) 72.6 Lymph % (Auto) 15.2 L [place] % (Auto) 6.4 Eos % (Auto) 4.9 Baso % (Auto) 0.9 Absolute Neuts (auto) 6.3 Absolute Lymphs (auto) 1.3 Absolute Monos (auto) 0.6 Absolute Eos (auto) 0.4 Absolute Basos (auto) 0.1 Absolute Nucleated RBC 0.01 Nucleated RBC % 0.1 Sodium 136 Potassium 3.7 Chloride 106 Carbon Dioxide 25 Anion Gap 5 BUN 28 H Creatinine 1.96 H Est GFR ( Amer) 32.2 Est GFR (Non-Af Amer) 25.0 BUN/Creatinine Ratio 14.3 Glucose 155 H POC Glucose (mg/dL) 155 H Calcium 8.1 L 03/17/17 08:08 WBC RBC Hgb Hct MCV MCH MCHC RDW Plt Count MPV Neut % (Auto) Lymph % (Auto) [place] % (Auto) Eos % (Auto) Baso % (Auto) Absolute Neuts (auto) Absolute Lymphs (auto) Absolute Monos (auto) Absolute Eos (auto) Absolute Basos (auto) Absolute Nucleated RBC Nucleated RBC % Sodium Potassium Chloride Carbon Dioxide Anion Gap BUN Creatinine Est GFR ( Amer) Est GFR (Non-Af Amer) BUN/Creatinine Ratio Glucose POC Glucose (mg/dL) 167 H Calcium Assessment: 1. C.dif colitis 2. diarrhea, improving 3. T2 diabetes 4. CKD Plan: 1. vancomycin 125 mg po 4 times daily for 2 weeks then 2 times daily for 2 weeks. Discussed with Niall BROWN
[2017-03-17] MEDS: Ondansetron INJ* 2 MG/ML VIAL IV PRN (12:48)
[2017-03-17 19:25] LABS: Urine Bacteria Absent (Absent); Urine Bilirubin Negative (Negative); Urine Glucose 2+(150 mg/dL) (Negative); Urine Nitrite Negative (Negative)
[2017-03-17] MEDS: Atenolol TAB* 25 MG PO SCH (22:24)
[2017-03-18] MEDS: Levothyroxine TAB* 100 MCG TAB PO SCH (05:43)
[2017-03-18 07:42] LABS: Hematocrit 25 % (35-47); Hemoglobin 8.1 g/dl (12.0-16.0); Mean Corpuscular HGB Conc 33 g/dl (31-36); Mean Corpuscular Hemoglobin 29 pg (27-31); Mean Corpuscular Volume 87 fL (80-97); Mean Platelet Volume 8 um3 (7.4-10.4); Red Blood Count 2.84 10^6/ul (4.0-5.4); Red Cell Distribution Width 16 % (10.5-15); White Blood Count 6.8 10^3/ul (3.5-10.8)
[2017-03-18 07:52] LABS: BUN/Creatinine Ratio 14.2 (8-20); Calcium 8.2 mg/dL (8.6-10.3); EGFR African American 36.4 (>60); EGFR Non-African American 28.3 (>60); Potassium 3.9 mmol/L (3.5-5.0)
[2017-03-18] MEDS: Insulin ISOPH/REG 70/30 (*) 1 UNITS UNIT SUBCUT SCH ×2 (09:09→16:56)
[2017-03-18] MEDS: Insulin LISPRO* 1 UNITS UNIT SUBCUT SCH ×3 (09:09→16:49)
[2017-03-18] MEDS: Venlafaxine EXT RELEASE CAP* 75 MG PO SCH (09:10)
[2017-03-18] MEDS: Lactobacillus Acidophilu (GG)* 1 CAP CAP PO SCH (09:10)
[2017-03-18] MEDS: Sertraline* 25 MG TAB PO SCH (09:11)
[2017-03-18] MEDS: Fluticasone NASAL SPRAY 50MCG* 16 gm SPRAY BTL BOTH NARES SCH (09:11)
[2017-03-18] MEDS: Apixaban* 5 MG TAB PO SCH ×2 (09:17→21:02)
[2017-03-18] MEDS: Vancomycin CAP* 125 MG CAP PO SCH (09:17)
[2017-03-18] MEDS: Ondansetron INJ* 2 MG/ML VIAL IV PRN (13:50)
[2017-03-18] MEDS ORDERED: VANCOMYCIN 25 MG/ML PO ONE (14:00)
--- NOTE | 2017-03-18 15:58 | PN ---
Subjective Date of Service: 03/18/17 Interval History: Patient reported this am that her bowel movements had slowed. Her strength was improving. Still having mild abd cramping. She has been able to ambulate independently to the bathroom. Later this afternoon, she was unable to make it to the bathroom in time for a bowel movement. Objective Active Medications: Acetaminophen (Tylenol Tab*) 650 mg PO Q6H PRN PRN Reason: PAIN Apixaban (Eliquis*) 5 mg PO BID [facility] Last Admin: 03/18/17 09:17 Dose: 5 mg Atenolol (Tenormin Tab*) 25 mg PO BEDTIME [facility] Last Admin: 03/17/17 22:24 Dose: 25 mg Dextrose (D50w Syringe 50 Ml*) 12.5 gm IV PUSH .FOR FS < 60 - SS PRN PRN Reason: FS < 60 Fluticasone Propionate (Flonase Nasal [place] 50mcg*) 2 spray BOTH NARES DAILY [facility] Last Admin: 03/18/17 09:11 Dose: 2 spray Guaifenesin (Mucinex*) 1,200 mg PO BID PRN PRN Reason: CONGESTION Insulin Human Isoph/Insulin Regular (Humulin 70/30 (*)) 40 units SUBCUT 0800, 1700 [facility] Last Admin: 03/18/17 09:09 Dose: 40 units Insulin Human Lispro (Humalog*) 0 units SUBCUT AC [facility] PRN Reason: Protocol Last Admin: 03/18/17 12:58 Dose: 3 units Lactobacillus Rhamnosus (Culturelle*) 1 cap PO DAILY [facility] Last Admin: 03/18/17 09:10 Dose: 1 cap Levothyroxine Sodium (Synthroid Tab*) 200 mcg PO DAILY@0600 [facility] Last Admin: 03/18/17 05:43 Dose: 200 mcg Ondansetron HCl (Zofran Inj*) 4 mg IV Q6H PRN PRN Reason: NAUSEA Last Admin: 03/18/17 13:50 Dose: 4 mg Oxycodone/Acetaminophen (Percocet 5/325 Tab*) 1 tab PO Q6H PRN PRN Reason: PAIN Last Admin: 03/17/17 05:37 Dose: 1 tab Sertraline HCl (Zoloft*) 50 mg PO DAILY [facility] Last Admin: 03/18/17 09:11 Dose: 50 mg Vancomycin HCl (Vancomycin Solution*) 125 mg PO QID [facility] Venlafaxine HCl (Effexor Xr Cap*) 150 mg PO DAILY [facility] Last Admin: 03/18/17 09:10 Dose: 150 mg Vital Signs: Temp Pulse Resp BP Pulse Ox 97.9 F 92 16 162/77 96 03/18/17 15:35 03/18/17 15:35 03/18/17 15:35 03/18/17 15:35 03/18/17 15:35 Oxygen Devices in Use Now: None Appearance: Well appearing elderly female in NAD, slightly disheveled Respiratory: Symmetrical Chest Expansion and Respiratory Effort, Clear to Auscultation Cardiovascular: NL Sounds; No Murmurs; No JVD, RRR Abdominal: NL Sounds; No Tenderness; No Distention Extremities: No Edema Skin: No Rash or Ulcers Neurological: Alert and Oriented x 3 Result Diagrams: 03/18/17 07:31 03/18/17 07:31 Additional Lab and Data: . Microbiology and Other Data: Microbiology 03/15/17 19:40 Stool Gross Appearance - Final Stool Shiga Toxin I & II - Final Negative Shiga Toxin 1 & 2 C. difficile DNA Amplification - Final 027 Presumptive POSITIVE Toxigenic C.diff POSITIVE Stool Occult Blood (ANGELA) - Final Cryptosporidium/Giardia - Final Neg Cryptosporidium/Giardia 03/15/17 19:40 Stool Gross Appearance - Final Stool Stool Lactoferrin - Final Assess/Plan/Problems-Billing Pt is a 71 y/o F w/ hx of diabetes, CKD who was recently discharged on 03/01/17 from [facility] [place] for C. Diff colitis who returns now with nausea, vomiting, diarrhea and a CT scan showing diffuse colitis - Patient Problems (1) C. difficile colitis Comment: Leukocytosis improved. Freq and consistency of BMs improving Appreciate ID consult. Continue PO Vancomycin. Plan to tx with Vanco 4x daily for 2 weeks and then 2x daily for additional 2 weeks. (2) Depression Comment: Stable Continue Effexor and Zoloft. (3) Diabetes Comment: Improved glycemic control Cont current dose of 70/30 (4) HTN (hypertension) Comment: Normotensive HCTZ/losartan held Cont atenolol (5) CKD (chronic kidney disease) stage 3, GFR 30-59 ml/min Comment: Cr slightly above baseline Cont to monitor Hold HCTZ/ARB (6) Full code status (7) DVT prophylaxis Comment: Ayad. Status and Disposition: Inpatient for C. diff colitis. Likely dc tomorrow am.
[2017-03-18] MEDS: VANCOMYCIN 25 MG/ML PO SCH ×2 (16:56→21:02)
[2017-03-18] MEDS: oxyCODONE/Acetamin 5/325 MG* TAB PO PRN (17:49)
[2017-03-18] MEDS: Atenolol TAB* 25 MG PO SCH (21:02)
[2017-03-19] MEDS: Fluticasone NASAL SPRAY 50MCG* 16 gm SPRAY BTL BOTH NARES SCH ×2 (01:49→08:40)
[2017-03-19] MEDS: oxyCODONE/Acetamin 5/325 MG* TAB PO PRN ×2 (01:50→08:39)
[2017-03-19] MEDS: Levothyroxine TAB* 100 MCG TAB PO SCH (05:16)
[2017-03-19] MEDS: Insulin LISPRO* 1 UNITS UNIT SUBCUT SCH ×3 (08:32→17:33)
[2017-03-19] MEDS: Insulin ISOPH/REG 70/30 (*) 1 UNITS UNIT SUBCUT SCH ×2 (08:34→17:33)
[2017-03-19] MEDS: Venlafaxine EXT RELEASE CAP* 75 MG PO SCH (08:35)
[2017-03-19] MEDS: Apixaban* 5 MG TAB PO SCH ×2 (08:36→20:56)
[2017-03-19] MEDS: Sertraline* 25 MG TAB PO SCH (08:36)
[2017-03-19] MEDS: Lactobacillus Acidophilu (GG)* 1 CAP CAP PO SCH (08:37)
[2017-03-19] MEDS: VANCOMYCIN 25 MG/ML PO SCH ×2 (08:39→13:12)
--- NOTE | 2017-03-19 09:43 | PN ---
Subjective Date of Service: 03/19/17 Interval History: Patient continues to have loose stools (~3x daily) with occ nausea and abd cramping. Symptoms are similar to yesterday. She is wary of discharge over the weekend. Denies vomiting. No cough or SOB. Objective Active Medications: Acetaminophen (Tylenol Tab*) 650 mg PO Q6H PRN PRN Reason: PAIN Apixaban (Eliquis*) 5 mg PO BID [facility] Last Admin: 03/19/17 08:36 Dose: 5 mg Atenolol (Tenormin Tab*) 25 mg PO BEDTIME [facility] Last Admin: 03/18/17 21:02 Dose: 25 mg Dextrose (D50w Syringe 50 Ml*) 12.5 gm IV PUSH .FOR FS < 60 - SS PRN PRN Reason: FS < 60 Fluticasone Propionate (Flonase Nasal [place] 50mcg*) 2 spray BOTH NARES DAILY [facility] Last Admin: 03/19/17 08:40 Dose: Not Given Guaifenesin (Mucinex*) 1,200 mg PO BID PRN PRN Reason: CONGESTION Insulin Human Isoph/Insulin Regular (Humulin 70/30 (*)) 40 units SUBCUT 0800, 1700 [facility] Last Admin: 03/19/17 08:34 Dose: 40 units Insulin Human Lispro (Humalog*) 0 units SUBCUT AC [facility] PRN Reason: Protocol Last Admin: 03/19/17 08:32 Dose: Not Given Lactobacillus Rhamnosus (Culturelle*) 1 cap PO DAILY [facility] Last Admin: 03/19/17 08:37 Dose: 1 cap Levothyroxine Sodium (Synthroid Tab*) 200 mcg PO DAILY@0600 [facility] Last Admin: 03/19/17 05:16 Dose: 200 mcg Ondansetron HCl (Zofran Inj*) 4 mg IV Q6H PRN PRN Reason: NAUSEA Last Admin: 03/18/17 13:50 Dose: 4 mg Oxycodone/Acetaminophen (Percocet 5/325 Tab*) 1 tab PO Q6H PRN PRN Reason: PAIN Last Admin: 03/19/17 08:39 Dose: 1 tab Sertraline HCl (Zoloft*) 50 mg PO DAILY [facility] Last Admin: 03/19/17 08:36 Dose: 50 mg Vancomycin HCl (Vancomycin Solution*) 125 mg PO QID [facility] Last Admin: 03/19/17 08:39 Dose: 125 mg Venlafaxine HCl (Effexor Xr Cap*) 150 mg PO DAILY [facility] Last Admin: 03/19/17 08:35 Dose: 150 mg Vital Signs: Temp Pulse Resp BP Pulse Ox 97.9 F 86 18 160/76 97 03/19/17 03:10 03/19/17 03:10 03/19/17 08:39 03/19/17 03:10 03/19/17 03:10 Oxygen Devices in Use Now: None Appearance: Well appearing, in NAD Respiratory: Symmetrical Chest Expansion and Respiratory Effort, Clear to Auscultation Cardiovascular: NL Sounds; No Murmurs; No JVD, RRR Abdominal: NL Sounds; No Tenderness; No Distention Extremities: No Edema Neurological: Alert and Oriented x 3 Result Diagrams: 03/18/17 07:31 03/18/17 07:31 Additional Lab and Data: . Microbiology and Other Data: Microbiology 03/15/17 19:40 Stool Gross Appearance - Final Stool Shiga Toxin I & II - Final Negative Shiga Toxin 1 & 2 C. difficile DNA Amplification - Final 027 Presumptive POSITIVE Toxigenic C.diff POSITIVE Stool Occult Blood (ANGELA) - Final Cryptosporidium/Giardia - Final Neg Cryptosporidium/Giardia 03/15/17 19:40 Stool Gross Appearance - Final Stool Stool Lactoferrin - Final Assess/Plan/Problems-Billing Pt is a 71 y/o F w/ hx of diabetes, CKD who was recently discharged on 03/01/17 from [facility] [place] for C. Diff colitis who returns now with nausea, vomiting, diarrhea and a CT scan showing diffuse colitis - Patient Problems (1) C. difficile colitis Comment: Leukocytosis improved. Freq and consistency of BMs improving Appreciate ID consult. Continue PO Vancomycin. Plan to tx with Vanco 4x daily for 2 weeks and then 2x daily for additional 2 weeks. (2) Depression Comment: Stable Continue Effexor and Zoloft. (3) Diabetes Comment: Improved glycemic control Cont current dose of 70/30 (4) HTN (hypertension) Comment: BP is starting to climb Resume HCTZ/losartan and repeat BMP tomorrow Cont atenolol (5) CKD (chronic kidney disease) stage 3, GFR 30-59 ml/min Comment: Will resume HCTZ/ARB and repeat BMP tomorrow (6) Full code status (7) DVT prophylaxis Comment: Ayad. Status and Disposition: Inpatient for C. diff colitis. Likely dc Tuesday
[2017-03-19] MEDS: Hydrochlorothiazide TAB* 25 MG PO SCH (11:02)
[2017-03-19] MEDS: Losartan TAB* 25 MG PO SCH (11:02)
[2017-03-19] MEDS: Vancomycin CAP* 125 MG CAP PO SCH ×2 (17:34→20:57)
[2017-03-19] MEDS: Atenolol TAB* 25 MG PO SCH (20:56)
[2017-03-20] MEDS: Levothyroxine TAB* 100 MCG TAB PO SCH (05:40)
[2017-03-20 06:31] LABS: BUN/Creatinine Ratio 14.4 (8-20); Calcium 8.3 mg/dL (8.6-10.3); EGFR African American 36.9 (>60); EGFR Non-African American 28.7 (>60); Potassium 3.9 mmol/L (3.5-5.0)
[2017-03-20] MEDS: Insulin LISPRO* 1 UNITS UNIT SUBCUT SCH ×3 (08:21→17:24)
[2017-03-20] MEDS: Insulin ISOPH/REG 70/30 (*) 1 UNITS UNIT SUBCUT SCH ×2 (08:21→17:25)
[2017-03-20] MEDS: Fluticasone NASAL SPRAY 50MCG* 16 gm SPRAY BTL BOTH NARES SCH (08:22)
[2017-03-20] MEDS: Venlafaxine EXT RELEASE CAP* 75 MG PO SCH (08:22)
[2017-03-20] MEDS: Losartan TAB* 25 MG PO SCH (08:22)
[2017-03-20] MEDS: Apixaban* 5 MG TAB PO SCH ×2 (08:23→21:30)
[2017-03-20] MEDS: Hydrochlorothiazide TAB* 25 MG PO SCH (08:23)
[2017-03-20] MEDS: Vancomycin CAP* 125 MG CAP PO SCH ×4 (08:23→21:30)
[2017-03-20] MEDS: Lactobacillus Acidophilu (GG)* 1 CAP CAP PO SCH (08:23)
[2017-03-20] MEDS: Sertraline* 25 MG TAB PO SCH (08:24)
[2017-03-20] MEDS: oxyCODONE/Acetamin 5/325 MG* TAB PO PRN ×2 (08:24→14:24)
--- NOTE | 2017-03-20 14:08 | RAD ---
HISTORY: Fall, back pain COMPARISONS: CT dated October 22, 2016 VIEWS: 3 , Frontal, lateral, and coned-down lateral sacral views of the lumbar spine FINDINGS: ALIGNMENT: There is mild levoscoliotic curvature of the spine VERTEBRAL BODIES: There is multilevel anterolateral marginal osteophyte formation. Vertebral bodies are preserved in height JOINTS: There is diffuse facet hypertrophy change most pronounced from L2-L3 inferiorly through L5-S1 INTERVERTEBRAL DISCS: There is diffuse loss of intervertebral disc height. SOFT TISSUE: Unremarkable. OTHER: There is osteoarthritis of the hips and SI joints IMPRESSION: DEGENERATIVE DISC DISEASE AND OSTEOARTHRITIS.
--- NOTE | 2017-03-20 14:08 | RAD ---
HISTORY: Fall, left hip pain COMPARISONS: None VIEWS: 3, Frontal view of the pelvis with frontal and frog-leg views of the left hip FINDINGS: BONE DENSITY: Normal. BONES: There is no displaced fracture. JOINTS: There is mild osteoarthritis of the hips and SI joints. ALIGNMENT: There is no dislocation. SOFT TISSUES: Unremarkable. OTHER FINDINGS: Degenerative changes are noted of the spine IMPRESSION: 1. OSTEOARTHRITIS. 2. NO RADIOGRAPHIC EVIDENCE FOR HIP FRACTURE. X-RAYS MAY BE NEGATIVE WITH NONDISPLACED HIP FRACTURE, IF THERE IS PERSISTENT CLINICAL CONCERN, RECOMMEND CONSIDERATION OF MRI. IN THE SETTING OF CONTRAINDICATION TO MRI OR LIMITATION IN EMERGENT ACCESS TO MRI, CT WOULD BE SUGGESTED.
--- NOTE | 2017-03-20 15:03 | PN ---
Subjective Date of Service: 03/20/17 Interval History: Patient unfortunately sustained a fall today getting out the shower. There was an aide present assist her. She stepped on a towel and fell backwards on to her buttocks. She did not hit her head or lose consciousness. She complained of low back and L hip pain after the fall, XRs of both regions are negative for fracture. She reports that she still has loose stools and abd cramping after eating. Symptoms are mild an essentially unchanged. Objective Active Medications: Acetaminophen (Tylenol Tab*) 650 mg PO Q6H PRN PRN Reason: PAIN Last Admin: 03/19/17 21:00 Dose: 650 mg Apixaban (Eliquis*) 5 mg PO BID [facility] Last Admin: 03/20/17 08:23 Dose: 5 mg Atenolol (Tenormin Tab*) 25 mg PO BEDTIME [facility] Last Admin: 03/19/17 20:56 Dose: 25 mg Dextrose (D50w Syringe 50 Ml*) 12.5 gm IV PUSH .FOR FS < 60 - SS PRN PRN Reason: FS < 60 Fluticasone Propionate (Flonase Nasal [place] 50mcg*) 2 spray BOTH NARES DAILY [facility] Last Admin: 03/20/17 08:22 Dose: 2 spray Guaifenesin (Mucinex*) 1,200 mg PO BID PRN PRN Reason: CONGESTION Hydrochlorothiazide (Hydrodiuril Tab*) 25 mg PO DAILY [facility] Last Admin: 03/20/17 08:23 Dose: 25 mg Insulin Human Isoph/Insulin Regular (Humulin 70/30 (*)) 40 units SUBCUT 0800, 1700 [facility] Last Admin: 03/20/17 08:21 Dose: 40 units Insulin Human Lispro (Humalog*) 0 units SUBCUT AC [facility] PRN Reason: Protocol Last Admin: 03/20/17 12:26 Dose: 6 units Lactobacillus Rhamnosus (Culturelle*) 1 cap PO DAILY [facility] Last Admin: 03/20/17 08:23 Dose: 1 cap Levothyroxine Sodium (Synthroid Tab*) 200 mcg PO DAILY@0600 [facility] Last Admin: 03/20/17 05:40 Dose: 200 mcg Losartan Potassium (Cozaar Tab*) 25 mg PO DAILY [facility] Last Admin: 03/20/17 08:22 Dose: 25 mg Ondansetron HCl (Zofran Inj*) 4 mg IV Q6H PRN PRN Reason: NAUSEA Last Admin: 03/18/17 13:50 Dose: 4 mg Oxycodone/Acetaminophen (Percocet 5/325 Tab*) 1 tab PO Q6H PRN PRN Reason: PAIN Last Admin: 03/20/17 14:24 Dose: 1 tab Sertraline HCl (Zoloft*) 50 mg PO DAILY [facility] Last Admin: 03/20/17 08:24 Dose: 50 mg Vancomycin HCl (Vancomycin Cap*) 125 mg PO QID [facility] Last Admin: 03/20/17 12:25 Dose: 125 mg Venlafaxine HCl (Effexor Xr Cap*) 150 mg PO DAILY [facility] Last Admin: 03/20/17 08:22 Dose: 150 mg Vital Signs: Temp Pulse Resp BP Pulse Ox 97.6 F 82 16 175/77 99 03/20/17 14:14 03/20/17 14:14 03/20/17 14:24 03/20/17 14:14 03/20/17 14:14 Oxygen Devices in Use Now: None Appearance: Well appearing, lying comfortably in bed in NAD Respiratory: Symmetrical Chest Expansion and Respiratory Effort, Clear to Auscultation Cardiovascular: RRR, - - murmur noted Abdominal: NL Sounds; No Tenderness; No Distention Extremities: - - 1+ edema bilaterally Skin: No Rash or Ulcers Neurological: Alert and Oriented x 3 Result Diagrams: 03/18/17 07:31 03/20/17 05:40 Additional Lab and Data: . Microbiology and Other Data: Microbiology 03/15/17 19:40 Stool Gross Appearance - Final Stool Shiga Toxin I & II - Final Negative Shiga Toxin 1 & 2 C. difficile DNA Amplification - Final 027 Presumptive POSITIVE Toxigenic C.diff POSITIVE Stool Occult Blood (ANGELA) - Final Cryptosporidium/Giardia - Final Neg Cryptosporidium/Giardia 03/15/17 19:40 Stool Gross Appearance - Final Stool Stool Lactoferrin - Final Assess/Plan/Problems-Billing Pt is a 71 y/o F w/ hx of diabetes, CKD who was recently discharged on 03/01/17 from [facility] [place] for C. Diff colitis who returns now with nausea, vomiting, diarrhea and a CT scan showing diffuse colitis - Patient Problems (1) C. difficile colitis Comment: Leukocytosis improved. Freq and consistency of BMs improving Appreciate ID consult. Continue PO Vancomycin. Plan to tx with Vanco 4x daily for 2 weeks and then 2x daily for additional 2 weeks. (2) Depression Comment: Stable Continue Effexor and Zoloft. (3) Diabetes Comment: Improved glycemic control Cont current dose of 70/30 (4) HTN (hypertension) Comment: BP is starting to climb Resume HCTZ/losartan and repeat BMP tomorrow Cont atenolol (5) CKD (chronic kidney disease) stage 3, GFR 30-59 ml/min Comment: Will resume HCTZ/ARB and repeat BMP tomorrow (6) Full code status (7) DVT prophylaxis Comment: Eliquis. Status and Disposition: Inpatient for C. diff colitis. Anticipate dc tomorrow
[2017-03-20] MEDS: Atenolol TAB* 25 MG PO SCH (21:30)
[2017-03-21] MEDS: oxyCODONE/Acetamin 5/325 MG* TAB PO PRN (03:47)
[2017-03-21] MEDS: Levothyroxine TAB* 100 MCG TAB PO SCH (06:24)
[2017-03-21 07:46] VITALS: BP 135/59
[2017-03-21] MEDS: Vancomycin CAP* 125 MG CAP PO SCH (09:02)
[2017-03-21] MEDS: Venlafaxine EXT RELEASE CAP* 75 MG PO SCH (09:02)
[2017-03-21] MEDS: Sertraline* 25 MG TAB PO SCH (09:02)
[2017-03-21] MEDS: Hydrochlorothiazide TAB* 25 MG PO SCH (09:02)
[2017-03-21] MEDS: Lactobacillus Acidophilu (GG)* 1 CAP CAP PO SCH (09:02)
[2017-03-21] MEDS: Losartan TAB* 25 MG PO SCH (09:02)
[2017-03-21] MEDS: Apixaban* 5 MG TAB PO SCH (09:02)
[2017-03-21] MEDS: Fluticasone NASAL SPRAY 50MCG* 16 gm SPRAY BTL BOTH NARES SCH (09:04)
[2017-03-21] MEDS: Insulin ISOPH/REG 70/30 (*) 1 UNITS UNIT SUBCUT SCH (09:05)
[2017-03-21] MEDS: Insulin LISPRO* 1 UNITS UNIT SUBCUT SCH (09:05)
--- NOTE | 2017-03-21 11:36 | DS ---
CC: Dr. Zakia Zurita; Dr. Driss Rivers * DATE OF ADMISSION: 03/15/2017. DATE OF DISCHARGE: 03/21/2017. PRIMARY CARE PHYSICIAN: Dr. Zakia Zurita. CONSULTING INFECTIOUS DISEASE SPECIALIST: Dr. Driss Rivesr. DISCHARGE PROVIDER: KEVIN Gonzalez. SUPERVISING PHYSICIAN: Dr. Odalys Chase * (dictated by KEVIN Gonzalez). PRIMARY DISCHARGE DIAGNOSIS: C. diff colitis - failed Flagyl. SECONDARY DISCHARGE DIAGNOSES: 1. Depression. 2. Diabetes - insulin dependent. 3. Hypertension. 4. Stage 3 chronic kidney disease. DISCHARGE MEDICATIONS: 1. Acetaminophen 650 mg p.o. q.8 hours as needed for pain or fever. 2. Zofran 4 mg tablet, 1 tablet sublingual q.8 hours as needed for nausea. 3. Eliquis 5 mg p.o. twice daily. 4. Atenolol 25 mg p.o. at bedtime. 5. Fluticasone nasal spray two sprays in both nostrils once daily. 6. Hydrochlorothiazide 25 mg p.o. daily. 7. Humulin 70/30, 40 units subcu twice daily. 8. Acidophilus and Lactobacillus one capsule p.o. daily. 9. Levothyroxine 200 mcg p.o. daily. 10. Losartan 25 mg p.o. daily. 11. Multivitamin one capsule p.o. daily. 12. Omeprazole 20 mg p.o. at bedtime. 13. Potassium chloride 20 mEq p.o. daily. 14. Senna 2 mg p.o. at bedtime. 15. Zoloft 50 mg p.o. daily. 16. Vancomycin 125 mg p.o. 4 times daily for 2 weeks through April 04, then twice daily for an additional 2 weeks. 17. Venlafaxine 150 mg p.o. daily. 18. Mucinex 1200 mg p.o. b.i.d. as needed. 19. Percocet 5/325 one tablet p.o. q.6 hours as needed for pain. Medication changes: 1. 70/30 insulin increased to 40 units twice daily. 2. Vancomycin for a total of 4 weeks as described above. 3. Start Lactobacillus and Acidophilus. HOSPITAL IMAGIN. CT abdomen and pelvis shows mild diffuse colitis. 2. Chest x-ray shows no acute process. 3. Lumbar spine x-ray shows degenerative disk disease and osteoarthritis. 4. Hip and pelvis x-ray shows osteoarthritis, no evidence of acute hip fracture. HOSPITAL COURSE: This is a 71-year-old female with insulin dependent diabetes, stage 3 chronic kidney disease, depression, hypertension and chronic pain who presented to the emergency department with complaints of nausea, vomiting and diarrhea. The patient had been discharged almost two weeks prior after treatment for C. diff colitis. The patient completed her treatment with Flagyl as prescribed and shortly after completing her antibiotics her symptoms of nausea, vomiting, and diarrhea became acutely worse. Initial labs showed a white blood cell count of 19,600. Metabolic panel was significant only for mild hypomagnesemia. Creatinine was near baseline at 1.5 at the time of admission. CRP was moderately elevated at 43. CT imaging of the abdomen and pelvis showed a mild diffuse colitis consistent with C. diff. The patient was seen by infectious disease specialist who recommended starting oral Vancomycin four times daily. The patient was somewhat slow to improve, but her leukocytosis resolved. Her complaints of abdominal pain resolved. She still had some mild cramping associated with eating and some occasional loose stools, but no nausea or vomiting and was able to tolerate a near normal diet at the time of discharge. The patient did sustain a fall during her hospital stay that seemed to be mechanical in nature. X-rays of her lumbar spine and pelvis at that time were completed and showed no evidence of acute fracture. At the time of discharge, she was able to ambulate around the entire nursing unit with the use of a walker without pain or a steady gait and is able to navigate her room, getting herself back and forth to the bathroom without any difficulty. DISPOSITION AND FOLLOW-UP PLAN: The patient is being discharged to home. She has a follow-up scheduled with her primary care provider for later this week which she is encouraged to keep. She was instructed to please take the Vancomycin as described above. Her 70/30 insulin regime has been increased during her hospital stay with improvements in her glycemic control. KEVIN GONZALEZ [id number]/[facility] #: [id number] AZAEL
== END 2017-03-21 11:30 | disposition home or self-care (01) | DRG 373 ==
LOC: ED 13:57 → MED 18:50
PROVIDERS: ADMIT Internal Medicine; ATTEND Hospitalist
DX: A04.71 Enterocolitis due to Clostridium difficile, recurrent (principal); E11.22 Type 2 diabetes mellitus with diabetic chronic kidney disease; N18.3 Chronic kidney disease, stage 3 (moderate); F32.9 Major depressive disorder, single episode, unspecified; I12.9 Hypertensive chronic kidney disease with stage 1 through stage 4 chronic kidney disease, or unspecified chronic kidney disease; E83.42 Hypomagnesemia; W18.30XA Fall on same level, unspecified, initial encounter; Y92.239 Unspecified place in hospital as the place of occurrence of the external cause; F43.10 Post-traumatic stress disorder, unspecified; E11.319 Type 2 diabetes mellitus with unspecified diabetic retinopathy without macular edema; K21.9 Gastro-esophageal reflux disease without esophagitis; Z87.891 Personal history of nicotine dependence; Z79.891 Long term (current) use of opiate analgesic; Z79.4 Long term (current) use of insulin; Z79.899 Other long term (current) drug therapy; Z88.5 Allergy status to narcotic agent; Z88.8 Allergy status to other drugs, medicaments and biological substances
CPT/HCPCS: 36415; 71010; 72100; 74177; 80048; 80053; 81003; 81015; 82270; 82550; 82553; 82947; 83605; 83630; 83690; 83735; 83880; 85025; 85610; 85730; 86140; 87040; 87045; 87046; 87077; 87086; 87186; 87328; 87329; 87493; 87899; 93005; A9270-GY; J2405; J3370; Q9967

== ENCOUNTER 2017-05-03 09:12 | Inpatient (IN) | payer MEDICARE ==
[2017-05-03] MEDS ORDERED: NS 0.9% 1000 ML* 1,000 ML IV SCH (09:45)
[2017-05-03 12:26] LABS: Hematocrit 36 % (35-47); Hemoglobin 11.7 g/dl (12.0-16.0); Mean Corpuscular HGB Conc 33 g/dl (31-36); Mean Corpuscular Hemoglobin 27 pg (27-31); Mean Corpuscular Volume 84 fL (80-97); Mean Platelet Volume 8 um3 (7.4-10.4); Red Blood Count 4.26 10^6/ul (4.0-5.4); Red Cell Distribution Width 16 % (10.5-15)
[2017-05-03 13:05] LABS: Albumin 3.9 g/dL (3.2-5.2); BUN/Creatinine Ratio 20.4 (8-20); C Reactive Protein 28.91 mg/L (< 5.00); Calcium 9.8 mg/dL (8.6-10.3); EGFR African American 43.1 (>60); EGFR Non-African American 33.5 (>60); Globulin 2.8 g/dL (2-4); Total Bilirubin 0.4 mg/dL (0.2-1.0); Total Protein 6.7 g/dL (6.4-8.9)
[2017-05-03] MEDS ORDERED: Iodixanol* (CONTRAST) 320 MG/ML 100 ML SDV IV ONE (13:38)
[2017-05-03] MEDS ORDERED: Vancomycin CAP* 125 MG CAP PO ONE (13:56)
--- NOTE | 2017-05-03 15:02 | HP ---
History of Present Illness - History of Present Illness Reason for Visit: Abdominal pain, diarrhea History of Present Illness: Ms. Montemayor is a 71 yo female who has a history of two previous C. diff infections, insulin-dependent diabetes, HTN, CKD, GERD, PTSD, depression, and diabetic retinopathy who presented to the ED complaining of abdominal pain and diarrhea. The patient was discharged on 03/21 for a previous C. diff infection, and finished the Vancomycin therapy on morning. The patient states that on Tuesday, she began having diarrhea and had approximately 4-6 episodes throughout the day. Today, she has not eaten anything and has continued to have frequent bouts of diarrhea. Ms. Montemayor c/o fevers, chills, fatigue, lightheadedness, dizziness, weakness, abdominal pain, achy joints, anorexia, and nausea. Patient does admit to falling today because of weakness, however, denies LOC or hitting her head, as well as any other pain d/t the fall besides right heel pain. Patient denies CP, palpitations, chest tightness or pressure, SOB, wheezing, coughing, vomiting, LE swelling. - Past Medical History Cardiac: HTN Gastrointestinal: GERD, Other - C. diff Psych: Depression, Other - PTSD Renal/: Chronic renal failure Endocrine: Diabetes - Past Family History Family History: Other - Unknown - Past Social History Smoke: Quit - 1983 Alcohol: Rare Drugs: Marijuana - Frequent use Lives: Alone Review of Systems - Review of Systems Constitutional: Positive: Fever, Chills Gastrointestinal: Positive: Nausea, Abdominal Pain, Diarrhea, Other - anorexia - Medications/Allergies Allergies/Adverse Reactions: Allergies Allergy/AdvReac Type Severity Reaction Status Date / Time Heparin Allergy Hives Verified 03/15/17 23:30 Hydrocodone [From Vicodin] Allergy Rash Verified 02/20/17 21:49 Metformin Allergy Itching Verified 02/20/17 21:49 Medications: Current Medications Sodium Chloride (Ns 0.9% 1000 Ml*) 1,000 mls @ 150 mls/hr IV PER RATE WILLIAMS Exam - Exam Vital Signs: Vital Signs (72 hours) 05/03/17 05/03/17 05/03/17 09:32 10:23 10:27 Temperature 98.1 F Pulse Rate 84 88 Respiratory 16 Rate Blood Pressure 148/78 152/73 (mmHg) O2 Sat by Pulse 100 98 Oximetry 05/03/17 05/03/17 05/03/17 10:30 11:00 11:30 Temperature Pulse Rate 86 89 86 Respiratory 18 17 15 Rate Blood Pressure (mmHg) O2 Sat by Pulse 99 96 97 Oximetry 05/03/17 05/03/17 05/03/17 11:42 12:00 12:30 Temperature Pulse Rate 85 86 87 Respiratory 19 14 19 Rate Blood Pressure 158/83 (mmHg) O2 Sat by Pulse 99 96 98 Oximetry 05/03/17 05/03/17 13:00 13:30 Temperature Pulse Rate 83 83 Respiratory 15 17 Rate Blood Pressure (mmHg) O2 Sat by Pulse 96 96 Oximetry General: Alert, Oriented x3, No acute distress HEENT: Mucous membr. moist/pink Lungs: Clear to auscultation Cardiovascular: Regular rate, No murmurs, Gallops, Rubs Abdomen: Normal bowel sounds, Other - Abdominal distention and tenderness upon palpation Extremities: No tenderness/swelling Skin: No rashes Psych/Mental Status: Mental status NL Assessment/Plan - Assessment/Plan Assessment: Diagnostic Studies: 1. WBC: 18.0 2. Creatinine: 1.52 3. Glucose: 256 4. Lactic Acid: 2.1 5. CRP: 28.91 6. BNP: 140 This is a 71 yo female with a significant history that has been outlined above, most notable are two previous C. diff infections. This patient will be admitted for hydration and treatment of a recurrent C. diff infection. Plan: 1. Diarrhea: Oral Vancomycin therapy initiated. Stool culture warranted and infectious disease consult appropriate. 2. Dehydration: Gentle hydration with 2 L NS, slowly. 3. DM: Monitor glucose with fingersticks. Lispro sliding scale. 4. DVT Prophylaxis: Apixaban.
--- NOTE | 2017-05-03 15:56 | RAD ---
Indication: Diffuse abdominal pain. Contrast: Administered 100.0 ml of Contrast -- mg/ml CT of the abdomen and pelvis was performed after oral and IV contrast demonstration. Coronal and sagittal reconstructed images were obtained. Lung bases demonstrate no pleural fluid, nodules or masses. Heart is of normal size without evidence of pericardial effusion. Liver is normal in size. No focal lesions or intrahepatic ductal dilatation is noted. Patient is status post cholecystectomy. The spleen is normal in size. The pancreas indicates no mass or pancreatic duct dilatation. The common duct is not dilated. The spleen is normal in size. No adrenal lesions are noted. The kidneys demonstrate symmetric nephrograms without focal lesions. Small 3 to 5 mm. Peripancreatic lymph nodes are noted which are likely not clinically significant. Small cystic lesion in the inferior pancreas likely represents a small pancreatic pseudocyst as it appears smaller than on November 13, 2015. This cyst measures 9 mm. The spleen is normal in size. No adrenal masses are noted. The kidneys demonstrate no hydronephrosis. No retroperitoneal adenopathy is noted. The stomach is partially collapsed. The kidneys demonstrate symmetric nephrograms without hydronephrosis. No retroperitoneal lymphadenopathy is noted. CT of the pelvis demonstrates mild mucosal thickening of the rectum and sigmoid colon. The possibility of colitis should BE considered. No evidence of bowel obstruction is noted. No dilated loops of bowel are noted. The urinary bladder is otherwise remarkable. Additionally there may be areas of mucosal thickening in the transverse colon right colon. This is nonspecific. The uterus is unremarkable. No hernias are noted. Beginning bladder is unremarkable. IMPRESSION: Mucosal thickening of the colon which is nonspecific. This is most prominent in the rectum and sigmoid colon and may represent colitis. Cystic lesion in the uncinate process is unchanged from previous exam measuring 9 mm. This appears smaller than November 13, 2015 and May represent sequela from prior pancreatitis.
[2017-05-03] MEDS ORDERED: Ondansetron INJ* 2 MG/ML VIAL IV PRN (16:09)
[2017-05-03] MEDS ORDERED: Morphine INJ* 4 MG/ML 1 ML CARPUJECT IV ONE (16:33)
[2017-05-03] MEDS ORDERED: Dextrose 50% Syringe 50 ML* 25 GM/50 ML SYRINGE IV PUSH PRN (16:50)
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
[2017-05-03] MEDS: NS 0.9% 1000 ML* 1,000 ML IV SCH ×2 (19:15→23:27)
--- NOTE | 2017-05-03 20:17 | HP ---
CC: Zakia Zurita MD * ADMISSION HISTORY AND PHYSICAL: DATE OF ADMISSION: 05/03/17 PRIMARY CARE PROVIDER: Zakia Zurita MD ADMITTING PROVIDER: KEVIN Gonzalez SUPERVISING PHYSICIAN: Dillan Gayle MD * (DICTATED BY KEVIN GONZALEZ) CHIEF COMPLAINT: Abdominal pain and diarrhea. HISTORY OF PRESENT ILLNESS: This is a 71-year-old female with insulin- dependent diabetes, chronic kidney disease, hypertension, and depression who has been treated on 2 prior occasions for C. diff as an inpatient and returned with recurrent diarrhea and abdominal pain. The patient was last discharged from the hospital on 03/21/17 with a 4-week supply of vancomycin starting at 4 times daily at 125 mg each dose and then to complete an additional 2 weeks of 125 mg twice daily. The patient states that she followed all instructions and completed her antibiotics last , which would have been 04/28/17. She states that she had been feeling well, having normal formed stools with a good appetite and then yesterday she began having frequent episodes of diarrhea, which have become worse today. She estimates yesterday she had 4 to 6 diarrhea , stools and today she is largely incontinent of stool. No gross blood appreciated and she has mostly right-sided abdominal pain. She denies nausea or vomiting, but her appetite is poor and she has not eaten anything in about 24 hours. The patient again confirms that she was compliant with all recommendations at the time of discharge. The only new medications for her are 2 new blood pressure medications, she was unsure of what these were but later confirmed with pharmacy that she was recently started on losartan and hydrochlorothiazide. The patient has been afebrile. She does complain of associated myalgias and arthralgias and significant dizziness with associated weakness. She did fall at least once and perhaps twice yesterday without significant injury. She denies chest pain, shortness of breath, or palpitations. PAST MEDICAL HISTORY: 1. Insulin-dependent diabetes. 2. Stage 3 chronic kidney disease. 3. Hypertension. 4. Depression. 5. PTSD. HOME MEDICATIONS: 1. Amlodipine 10 mg p.o. daily. 2. Eliquis 5 mg p.o. twice daily. 3. Vitamin C 500 mg p.o. daily. 4. Atenolol 100 mg p.o. daily. 5. Lipitor 40 mg p.o. daily. 6. Calcium and vitamin D 1 tablet p.o. daily. 7. Lomotil 1 tablet p.o. 4 times daily as needed for diarrhea. 8. Fluticasone nasal spray, 2 sprays in both nostrils once daily. 9. Hydrochlorothiazide 25 mg p.o. daily. 10. Insulin 70/30, 25 units subcu twice daily. 11. Levothyroxine 200 mcg p.o. daily. 12. Losartan 100 mg p.o. daily. 13. Omeprazole 20 mg p.o. daily. 14. Potassium chloride 20 mEq p.o. daily. 15. Zoloft 50 mg p.o. daily. 16. Effexor 150 mg p.o. daily. SOCIAL HISTORY: The patient lives at home with her boyfriend. She has about 16 -pack year smoking history, quit in 1983. REVIEW OF SYSTEMS: As noted above in HPI, all other systems reviewed and otherwise negative. PHYSICAL EXAMINATION GENERAL: This is a 71-year-old female who is lying comfortably in hospital stretcher who appears mildly ill, but is otherwise in good spirits and smiles frequently. VITAL SIGNS: Temperature 98.1 degrees Fahrenheit, pulse 84 beats per minute, respiratory rate 16, oxygen saturation 100%, blood pressure 148/78 mmHg. HEENT: Head is normocephalic, atraumatic. Mucous membranes are mildly dry. RESPIRATORY: Lungs are clear to auscultation without wheezes, crackles, or rhonchi. CARDIOVASCULAR: Heart has a regular rate and rhythm without murmurs, rubs, or gallops. ABDOMEN: Mildly distended, hypoactive bowel sounds and tender in the right upper and lower quadrants. EXTREMITIES: No edema noted. PSYCH: The patient is alert and appropriately oriented. SKIN: Limited exam shows no concerning rashes or lesions. LABORATORY EVALUATION: CBC shows a white blood cell count of 18,000, hemoglobin of 11.7 g/dL, and platelet count of 305,000. Comprehensive metabolic panel shows a normal sodium of 136 mmol/L, potassium 4.0 , BUN 31, creatinine 1.52, random glucose 296 mg/dL. Lactic acid elevated at 2.1. Transaminases and total bilirubin within normal limits. CRP 28. Lipase normal at 32. IMAGING: CT abdomen and pelvis shows colon wall thickening, which is rather diffuse and worst in the rectum, likely representing a colitis. ASSESSMENT AND PLAN: This is a 71-year-old female with insulin-dependent diabetes, chronic kidney disease, hypertension, and depression who presents with complaints of recurrent diarrhea and abdominal pain after completing prolonged course of vancomycin for C. diff. 1. Clostridium difficile colitis - this is the patient's third episode of C. diff, previously treated with Flagyl and most recently, nearly a 6-week course of vancomycin. She does not appear to be septic at this time. She does have a very tender belly. Imaging does not demonstrate a albert colon. She is able to tolerate oral medications at this time. Requesting consultation from Dr. Driss Rivers. We will plan to restart oral vancomycin at 4 times daily and consider a prolonged taper for her. We will rehydrate with normal saline, provide p.r.n. antiemetics and analgesic medications. 2. Insulin-dependent diabetes - the patient is hyperglycemic in the emergency department, she states compliance with her insulin and expects hyperglycemia is likely related to her acute illness. We will transition her from her b.i.d. 70/ 30 regimen to basal bolus regimen during her hospitalization. We will start with 30 units of Lantus daily and mealtime Humalog on a sliding scale. 3. Hypertension - the patient is normotensive but slightly hypertensive in the emergency department. We will plan to hold her losartan and hydrochlorothiazide due to her profound diarrhea and mild exacerbation of her chronic kidney disease, but otherwise continue her atenolol and amlodipine. 4. Depression - her symptoms appear to be stable. We will plan to continue her home medications. 5. Chronic kidney disease, stage 3 at baseline. Estimated GFR at the time of admission was 33, which is not too terribly far from her baseline. We will hydrate with normal saline and monitor renal function. As mentioned above, hold hydrochlorothiazide and losartan at this time. 6. Code status. The patient is full code. 7. Healthcare proxy is the patient's significant other, Peewee. 8. DVT prophylaxis. The patient is chronically anticoagulated for a history of pulmonary embolism with Eliquis, which will be continued. DISPOSITION: The patient is being admitted to inpatient status for recurrent C. diff colitis and failure of outpatient therapy. Anticipated length of stay to be greater than 2 midnights. NIRANJAN JIN, KEVIN [id number]/[facility] #: [id number] [facility]SING FACILITYCyn
[2017-05-03] MEDS: Insulin LISPRO* 1 UNITS UNIT SUBCUT SCH (23:26)
[2017-05-03] MEDS: Vancomycin CAP* 125 MG CAP PO SCH (23:26)
[2017-05-03] MEDS: Apixaban* 5 MG TAB PO SCH (23:26)
[2017-05-03] MEDS: Insulin GLARGINE(*) 1 UNITS UNIT SUBCUT SCH (23:27)
[2017-05-03] MEDS: Acetaminophen TAB* 325 MG PO PRN (23:46)
[2017-05-04] MEDS: Levothyroxine TAB* 100 MCG TAB PO SCH (05:33)
[2017-05-04 06:44] LABS: Hematocrit 31 % (35-47); Hemoglobin 10.2 g/dl (12.0-16.0); Mean Corpuscular HGB Conc 33 g/dl (31-36); Mean Corpuscular Hemoglobin 28 pg (27-31); Mean Corpuscular Volume 83 fL (80-97); Mean Platelet Volume 8 um3 (7.4-10.4); Red Blood Count 3.69 10^6/ul (4.0-5.4); Red Cell Distribution Width 15 % (10.5-15); White Blood Count 10.3 10^3/ul (3.5-10.8)
[2017-05-04 07:09] LABS: BUN/Creatinine Ratio 15.4 (8-20); Calcium 9.1 mg/dL (8.6-10.3); EGFR African American 41.8 (>60); EGFR Non-African American 32.5 (>60); Potassium 3.4 mmol/L (3.5-5.0)
[2017-05-04] MEDS: Insulin LISPRO* 1 UNITS UNIT SUBCUT SCH ×4 (08:44→22:06)
--- NOTE | 2017-05-04 09:57 | PN ---
Progress Note - Progress Note Date of Service: 05/04/17 SOAP: Subjective: Ms. Montemayor is a pleasant 71 yo female with a history of two previous C. diff infections, insulin-dependent DM, PE, HTN, CKD, GERD, PTSD, depression, and diabetic retinopathy who is being treated for a recurrent C. diff infection. Patient completed Vancomycin therapy last for her previous C. diff infection. Diarrhea and abdominal pain returned on Tuesday. Vancomycin therapy was initiated yesterday for recurrent infection. Today, the patient states that she feels much better and has minimal abdominal pain compared to yesterday. Patient has had one watery, foul smelling stool today that occurred when she urinated. Patient denies CP, chest tightness or pressure , SOB, coughing, wheezing, N/V. Objective: Vital Signs Temp Pulse Resp BP Pulse Ox 97.9 F 68 18 117/55 96 05/04/17 03:28 05/04/17 03:28 05/04/17 03:28 05/04/17 03:28 05/04/17 03:28 Laboratory Last Values WBC 10.3 10^3/ul (3.5-10.8) 05/04/17 06:22 RBC 3.69 10^6/ul (4.0-5.4) L 05/04/17 06:22 Hgb 10.2 g/dl (12.0-16.0) L 05/04/17 06:22 Hct 31 % (35-47) L 05/04/17 06:22 MCV 83 fL (80-97) 05/04/17 06:22 MCH 28 pg (27-31) 05/04/17 06:22 MCHC 33 g/dl (31-36) 05/04/17 06:22 RDW 15 % (10.5-15) 05/04/17 06:22 Plt Count 272 10^3/ul (150-450) 05/04/17 06:22 MPV 8 um3 (7.4-10.4) 05/04/17 06:22 Neut % (Auto) 76.8 % (38-83) 05/04/17 06:22 Lymph % (Auto) 15.2 % (25-47) L 05/04/17 06:22 [place] % (Auto) 5.0 % (1-9) 05/04/17 06:22 Eos % (Auto) 2.2 % (0-6) 05/04/17 06:22 Baso % (Auto) 0.8 % (0-2) 05/04/17 06:22 Absolute Neuts (auto) 7.9 10^3/ul (1.5-7.7) H 05/04/17 06:22 Absolute Lymphs (auto) 1.6 10^3/ul (1.0-4.8) 05/04/17 06:22 Absolute Monos (auto) 0.5 10^3/ul (0-0.8) 05/04/17 06:22 Absolute Eos (auto) 0.2 10^3/ul (0-0.6) 05/04/17 06:22 Absolute Basos (auto) 0.1 10^3/ul (0-0.2) 05/04/17 06:22 Absolute Nucleated RBC 0 10^3/ul 05/04/17 06:22 Nucleated RBC % 0 05/04/17 06:22 INR (Anticoag Therapy) 0.90 (0.77-1.02) 05/03/17 17:42 APTT 27.8 seconds (26.0-36.3) 05/03/17 17:42 Sodium 136 mmol/L (133-145) 05/04/17 06:20 Potassium 3.4 mmol/L (3.5-5.0) L 05/04/17 06:20 Chloride 104 mmol/L (101-111) 05/04/17 06:20 Carbon Dioxide 26 mmol/L (22-32) 05/04/17 06:20 Anion Gap 6 mmol/L (2-11) 05/04/17 06:20 BUN 24 mg/dL (6-24) 05/04/17 06:20 Creatinine 1.56 mg/dL (0.51-0.95) H 05/04/17 06:20 Est GFR ( Amer) 41.8 (>60) 05/04/17 06:20 Est GFR (Non-Af Amer) 32.5 (>60) 05/04/17 06:20 BUN/Creatinine Ratio 15.4 (8-20) 05/04/17 06:20 Glucose 147 mg/dL (70-100) H 05/04/17 06:20 POC Glucose (mg/dL) 125 mg/dL (70-100) H 05/04/17 08:14 Lactic Acid 2.1 mmol/L (0.5-2.0) H* 05/03/17 12:04 Calcium 9.1 mg/dL (8.6-10.3) 05/04/17 06:20 Total Bilirubin 0.40 mg/dL (0.2-1.0) 05/03/17 12:04 AST 15 U/L (13-39) 05/03/17 12:04 ALT 21 U/L (7-52) 05/03/17 12:04 Alkaline Phosphatase 133 U/L (34-104) H 05/03/17 12:04 C-Reactive Protein 28.91 mg/L (< 5.00) H 05/03/17 12:04 B-Natriuretic Peptide 140 pg/mL (-100) H 05/03/17 12:04 Total Protein 6.7 g/dL (6.4-8.9) 05/03/17 12:04 Albumin 3.9 g/dL (3.2-5.2) 05/03/17 12:04 Globulin 2.8 g/dL (2-4) 05/03/17 12:04 Albumin/Globulin Ratio 1.4 (1-3) 05/03/17 12:04 Lipase 32 U/L (11.0-82.0) 05/03/17 12:04 Active Medications Acetaminophen (Tylenol Tab*) 650 mg PO Q4H PRN PRN Reason: FEVER/PAIN Last Admin: 05/03/17 23:46 Dose: 650 mg Amlodipine Besylate (Norvasc Tab*) 10 mg PO DAILY [facility] Apixaban (Eliquis*) 5 mg PO BID [facility] Last Admin: 05/03/17 23:26 Dose: 5 mg Atenolol (Tenormin Tab*) 100 mg PO DAILY [facility] Atorvastatin Calcium (Lipitor*) 40 mg PO DAILY [facility] Dextrose (D50w Syringe 50 Ml*) 12.5 gm IV PUSH .FOR FS < 60 - SS PRN PRN Reason: FS < 60 Sodium Chloride (Ns 0.9% 1000 Ml*) 1,000 mls @ 150 mls/hr IV PER RATE [facility] Last Admin: 05/03/17 11:50 Dose: 150 mls/hr Sodium Chloride (Ns 0.9% 1000 Ml*) 1,000 mls @ 125 mls/hr IV PER RATE [facility] Last Admin: 05/03/17 23:27 Dose: 125 mls/hr Potassium Chloride/Sodium Chloride (Ns 0.9% W/ 40 Meq Kcl 1000 Ml*) 1,000 mls @ 100 mls/hr IV PER RATE [facility] Insulin Glargine (Lantus(*)) 30 units SUBCUT 2100 [facility] Last Admin: 05/03/17 23:27 Dose: 30 units Insulin Human Lispro (Humalog*) 0 units SUBCUT ACHS [facility] PRN Reason: Protocol Last Admin: 05/04/17 08:44 Dose: Not Given Levothyroxine Sodium (Synthroid Tab*) 200 mcg PO 0600 [facility] Last Admin: 05/04/17 05:33 Dose: 200 mcg Morphine Sulfate (Morphine Inj (Syringe)*) 4 mg IV Q4H PRN PRN Reason: PAIN Ondansetron HCl (Zofran Inj*) 4 mg IV Q4H PRN PRN Reason: NAUSEA/VOMITING Potassium Chloride (Klor Con Er Tab*) 10 meq PO DAILY [facility] Sertraline HCl (Zoloft*) 50 mg PO DAILY [facility] Vancomycin HCl (Vancomycin Cap*) 125 mg PO QID [facility] Last Admin: 05/03/17 23:26 Dose: 125 mg Venlafaxine HCl (Effexor Xr Cap*) 150 mg PO DAILY [facility] General: WDWN female in NAD. HEENT: Mucous membranes moist and pink. CV: RRR w/o MRG. Respiratory: CTA BL w/o RRW. GI: BS active throughout, abdomen is soft and tender to palpation of the RLQ. Otherwise, patient denied abdominal pain. Extremities: W/o edema. Assessment: This is a 71 yo female with a history of two previous C. diff infections, insulin-dependent DM, HTN, CKD, GERD, PTSD, depression, and diabetic retinopathy who is being treated for a recurrent C. diff infection with PO vancomycin. Plan: 1. Vancomycin therapy initiated, infectious disease consult pending. Hydrate with NS. Zofran and analgesics as needed. 2. DM: Lantus daily with lispro sliding scale at mealtime. 3. HTN: Hold Losartan and HCTZ during acute illness d/t CKD and dehydration d/t diarrhea. Continue amlodipine and atenolol. 4. Depression: Continue maintenance medications. 5. CKD: Hydrate with NS, continue to monitor kidney function. 6. DVT Prophylaxis: Continue anticoagulation therapy with Apixaban. Disposition: Length of stay will likely be 3-4 days.
[2017-05-04] MEDS: amLODIPine TAB* 5 MG PO SCH (10:17)
[2017-05-04] MEDS: Vancomycin CAP* 125 MG CAP PO SCH ×4 (10:17→22:06)
[2017-05-04] MEDS: Venlafaxine EXT RELEASE CAP* 75 MG PO SCH (10:17)
[2017-05-04] MEDS: Apixaban* 5 MG TAB PO SCH ×2 (10:17→22:06)
[2017-05-04] MEDS: Sertraline* 50 MG TAB PO SCH (10:17)
[2017-05-04] MEDS: Atenolol TAB* 50 MG PO SCH (10:18)
[2017-05-04] MEDS: Potassium Chlor TAB* 10 MEQ TAB.ER PO SCH (10:18)
[2017-05-04] MEDS: Atorvastatin* 40 MG TAB PO SCH (10:18)
--- NOTE | 2017-05-04 12:25 | CONS ---
CONSULTATION REPORT: DATE OF CONSULT: 05/04/17 REQUESTING PROVIDER: KEVIN Hooks CONSULTING SERVICE: Infectious Disease. REASON FOR CONSULT: Recurrence of c. difficile enterocolitis. IMPRESSION: 1. Explosive diarrhea, leukocytosis that developed a few days after stopping vancomycin. A Clostridium difficile test is positive again; she has recurrence of Clostridium difficile enterocolitis, which was first diagnosed early February. 2. Leukocytosis, improving due to Clostridium difficile colitis and possibly some dehydration. 3. Chronic kidney disease. 4. Insulin dependent diabetes. RECOMMENDATIONS: Vancomycin 125 mg by mouth 4 times a day for 2 weeks, then 3 times a day for 2 weeks, then once a day for 2 weeks, then every other day for 10 doses, then every 3rd day for 10 doses. HISTORY OF PRESENT ILLNESS: This is a 71-year-old woman with C. difficile diarrhea, enterocolitis initially diagnosed in early February after antibiotics for lower respiratory tract infection, had a course of vancomycin with improvement followed by recurrence after stopping. She had a long course of oral vancomycin tapering without a pulse component and was having formed stools by the end of it last and then earlier this week had return of multiple liquid stools and diffuse abdominal pain with low-grade fever. She came to the hospital yesterday. She was started on oral vancomycin. She had a CT of the abdomen and pelvis that showed nonspecific mucosal thickening of the colon. Today, she has had a couple of small bowel movements. Her abdominal pain is improving. She has no nausea. She is eating a little bit. She has been afebrile. PAST MEDICAL HISTORY: 1. Insulin dependent diabetes. 2. Chronic kidney disease stage 3. 3. Hypertension. 4. Depression. 5. PTSD. MEDICATIONS: 1. Tylenol. 2. Amlodipine. 3. Eliquis. 4. Atenolol. 5. Lipitor. 6. Insulin glargine. 7. Levothyroxine. 8. Morphine. 9. Potassium. 10. Sertraline. 11. Vancomycin 125 mg by mouth 4 times a day. 12. Effexor. ALLERGIES: HEPARIN, HYDROCODONE, METFORMIN. FAMILY HISTORY: No recurrent infections. SOCIAL HISTORY: She lives in [facility] in a trailer with her boyfriend. No travel. No sick contacts. REVIEW OF SYSTEMS: All negative except as noted above on 14-point review of systems. PHYSICAL EXAM: Vital Signs: Temperature is 36, heart rate 70, respiratory 18, blood pressure 135/57, O2 sat 100% on room air. In general, she is awake, not in distress. Neurologic: She is alert and oriented x3. Follows all commands. HEENT: There is no conjunctival hemorrhage. Oropharynx is without lesions. Neck: Supple without nuchal rigidity. Lymph Nodes: No inguinal, axillary, or epitrochlear lymphadenopathy. Heart: Regular rate and rhythm without murmurs, rubs, or gallops. Lungs: Clear to auscultation bilaterally. Abdomen: Soft. Mildly distended with diffuse abdominal tenderness without rebound. There are decreased bowel sounds. Skin: There are no rashes or splinter hemorrhages. Musculoskeletal: There is no spine tenderness to palpation or joint synovitis. LABORATORY DATA: White blood cell count 10, hemoglobin 10, platelets 272,000. Creatinine is 1.5. CRP was 28 on admission. Please see impressions and recommendations outlined above. Thanks for asking to me to see Ms. Montemayor in consultation. [id number]/[facility] #: [id number] AZAEL
--- NOTE | 2017-05-04 14:26 | PN ---
Subjective Date of Service: 05/04/17 Interval History: Patient reports improvement in abd pain and appetite. Patient is still having frequent diarrhea. No n/v. Objective Active Medications: Acetaminophen (Tylenol Tab*) 650 mg PO Q4H PRN PRN Reason: FEVER/PAIN Last Admin: 05/03/17 23:46 Dose: 650 mg Amlodipine Besylate (Norvasc Tab*) 10 mg PO DAILY [facility] Last Admin: 05/04/17 10:17 Dose: 10 mg Apixaban (Eliquis*) 5 mg PO BID [facility] Last Admin: 05/04/17 10:17 Dose: 5 mg Atenolol (Tenormin Tab*) 100 mg PO DAILY [facility] Last Admin: 05/04/17 10:18 Dose: 100 mg Atorvastatin Calcium (Lipitor*) 40 mg PO DAILY [facility] Last Admin: 05/04/17 10:18 Dose: 40 mg Dextrose (D50w Syringe 50 Ml*) 12.5 gm IV PUSH .FOR FS < 60 - SS PRN PRN Reason: FS < 60 Sodium Chloride (Ns 0.9% 1000 Ml*) 1,000 mls @ 150 mls/hr IV PER RATE [facility] Last Admin: 05/03/17 11:50 Dose: 150 mls/hr Potassium Chloride/Sodium Chloride (Ns 0.9% W/ 40 Meq Kcl 1000 Ml*) 1,000 mls @ 100 mls/hr IV PER RATE [facility] Insulin Glargine (Lantus(*)) 30 units SUBCUT 2100 [facility] Last Admin: 05/03/17 23:27 Dose: 30 units Insulin Human Lispro (Humalog*) 0 units SUBCUT ACHS [facility] PRN Reason: Protocol Last Admin: 05/04/17 12:50 Dose: 6 units Levothyroxine Sodium (Synthroid Tab*) 200 mcg PO 0600 [facility] Last Admin: 05/04/17 05:33 Dose: 200 mcg Morphine Sulfate (Morphine Inj (Syringe)*) 4 mg IV Q4H PRN PRN Reason: PAIN Ondansetron HCl (Zofran Inj*) 4 mg IV Q4H PRN PRN Reason: NAUSEA/VOMITING Potassium Chloride (Klor Con Er Tab*) 10 meq PO DAILY [facility] Last Admin: 05/04/17 10:18 Dose: 10 meq Sertraline HCl (Zoloft*) 50 mg PO DAILY [facility] Last Admin: 05/04/17 10:17 Dose: 50 mg Vancomycin HCl (Vancomycin Cap*) 125 mg PO QID [facility] Last Admin: 05/04/17 12:49 Dose: 125 mg Venlafaxine HCl (Effexor Xr Cap*) 150 mg PO DAILY [facility] Last Admin: 05/04/17 10:17 Dose: 150 mg Vital Signs - 8 hr 05/04/17 08:19 Temperature 97.3 F Pulse Rate 77 Respiratory 18 Rate Blood Pressure 135/57 (mmHg) O2 Sat by Pulse 100 Oximetry Oxygen Devices in Use Now: None Appearance: Smiling, pleasant 71 yo female in NAD Respiratory: Symmetrical Chest Expansion and Respiratory Effort, Clear to Auscultation Cardiovascular: NL Sounds; No Murmurs; No JVD, RRR Abdominal: - - mildly distended, hyperactive BS, TTP RU/RLQ Extremities: No Edema Skin: No Rash or Ulcers Neurological: Alert and Oriented x 3 Result Diagrams: 05/04/17 06:22 05/04/17 06:20 Additional Lab and Data: . Assess/Plan/Problems-Billing Assessment: This is a 71 yo female with DM, CKD, HTN and depression with PTSD who presented with recurrent abd pain and diarrhea secondary to C.Diff colitis - Patient Problems (1) C. difficile colitis Comment: 3rd recurrence No associated sepsis Improving with po vanco Pending ID consult Abd pain is manageable, appetite improving, still having profuse diarrhea (2) Diabetes Comment: Glycemic control improving Cont basal bolus regimen (3) History of pulmonary embolism Comment: Chronically anticoagulated with Eliquis (4) CKD (chronic kidney disease) stage 3, GFR 30-59 ml/min Comment: Cr near baseline Stop IVF Cont to hold ARB and HCTZ (5) Depression Comment: Stable Continue Effexor and Zoloft. (6) Full code status (7) DVT prophylaxis Comment: Eliquis Status and Disposition: Inpatient. Anticipate additional 3-4d LOS.
[2017-05-04] MEDS ORDERED: Oxymetazoline 0.05% NASAL SPR* 15 ML BTL BOTH NARES PRN (15:00)
[2017-05-04] MEDS: Acetaminophen TAB* 325 MG PO PRN (22:06)
[2017-05-04] MEDS: Insulin GLARGINE(*) 1 UNITS UNIT SUBCUT SCH (22:07)
[2017-05-04] MEDS: Morphine INJ* 4 MG/ML 1 ML CARPUJECT IV PRN (23:06)
[2017-05-05] MEDS: NS 0.9% w/ 40 Meq KCL 1000 ML* 1,000 ML IV SCH ×2 (05:14→16:18)
[2017-05-05] MEDS: Levothyroxine TAB* 100 MCG TAB PO SCH (05:16)
[2017-05-05] MEDS: Insulin LISPRO* 1 UNITS UNIT SUBCUT SCH ×4 (09:15→23:37)
[2017-05-05] MEDS: amLODIPine TAB* 5 MG PO SCH (09:17)
[2017-05-05] MEDS: Venlafaxine EXT RELEASE CAP* 75 MG PO SCH (09:17)
[2017-05-05] MEDS: Atorvastatin* 40 MG TAB PO SCH (09:17)
[2017-05-05] MEDS: Apixaban* 5 MG TAB PO SCH ×2 (09:17→23:36)
[2017-05-05] MEDS: Atenolol TAB* 50 MG PO SCH (09:17)
[2017-05-05] MEDS: Potassium Chlor TAB* 10 MEQ TAB.ER PO SCH (09:17)
[2017-05-05] MEDS: Vancomycin CAP* 125 MG CAP PO SCH ×4 (09:17→23:37)
[2017-05-05] MEDS: Sertraline* 50 MG TAB PO SCH (09:17)
--- NOTE | 2017-05-05 10:18 | PN ---
Progress Note - Progress Note Date of Service: 05/05/17 SOAP: Subjective: CC: diarrhea HPI: 71 year old woman with 2nd recurrence of Cdif diarrhea a few days after stopping vancomycin. Abd pain is diffuse but much better, appetite increased. Passing flatus, no BM yet today. No fever or rash. Objective: [] Vital Signs Temp 36.3 C 05/05/17 07:57 Pulse 72 05/05/17 07:57 Resp 16 05/05/17 07:57 BP 124/68 05/05/17 07:57 Pulse Ox 96 05/05/17 07:57 Intake & Output 05/04/17 05/05/17 05/05/17 18:59 06:59 18:59 Intake Total 2030 100 Output Total 400 Balance 2030 -300 Intake: IV Fluids 541 NS (0.9%) 541 Oral 1490 100 Output: Urine 400 Other: Estimated Void Medium # Bowel Movements 2 0 Estimated Stool Amount Medium Medium # Voids 1 Gen:Awake, no distress HEENT: MMM Heart:Regular no murmur Abd:+BS NTND soft Skin: no rash Microbiology 05/03/17 14:50 Stool Gross Appearance - Final Stool Shiga Toxin I & II - Final Negative Shiga Toxin 1 & 2 Cryptosporidium/Giardia - Final Neg Cryptosporidium/Giardia Assessment: 1. Cdif colitis, recurrent. Improving 2. Diabetes Plan: 1. vancomycin taper/pulse as outlined in consult note. 35 minutes floor time >50% face to face discussing abx plan and back up plan of FMT. All questions answered.
--- NOTE | 2017-05-05 13:17 | PN ---
Subjective Date of Service: 05/05/17 Interval History: Ms. Montemayor feels that she is doing better overall, though she continues to feel weak. She reports that her diarrhea has improved. Objective Active Medications: Acetaminophen (Tylenol Tab*) 650 mg PO Q4H PRN Amlodipine Besylate (Norvasc Tab*) 10 mg PO DAILY [facility] Apixaban (Eliquis*) 5 mg PO BID [facility] Atenolol (Tenormin Tab*) 100 mg PO DAILY [facility] Atorvastatin Calcium (Lipitor*) 40 mg PO DAILY [facility] Dextrose (D50w Syringe 50 Ml*) 12.5 gm IV PUSH .FOR FS < 60 - SS PRN Potassium Chloride/Sodium Chloride (Ns 0.9% W/ 40 Meq Kcl 1000 Ml*) 1,000 mls @ 100 mls/hr IV PER RATE [facility] Insulin Glargine (Lantus(*)) 30 units SUBCUT 2100 [facility] Insulin Human Lispro (Humalog*) 0 units SUBCUT ACHS [facility] Levothyroxine Sodium (Synthroid Tab*) 200 mcg PO 0600 [facility] Morphine Sulfate (Morphine Inj (Syringe)*) 4 mg IV Q4H PRN Ondansetron HCl (Zofran Inj*) 4 mg IV Q4H PRN Oxymetazoline HCl (Afrin 0.05% Nasal [place]*) 2 spray BOTH NARES BID PRN Potassium Chloride (Klor Con Er Tab*) 10 meq PO DAILY [facility] Sertraline HCl (Zoloft*) 50 mg PO DAILY [facility] Vancomycin HCl (Vancomycin Cap*) 125 mg PO QID [facility] Venlafaxine HCl (Effexor Xr Cap*) 150 mg PO DAILY [facility] Vital Signs: Temp Pulse Resp BP Pulse Ox 97.5 F 70 18 130/59 98 05/05/17 12:10 05/05/17 12:10 05/05/17 12:10 05/05/17 12:10 05/05/17 12:10 Oxygen Devices in Use Now: None Appearance: Female sitting up in bed in NAD Eyes: No Scleral Icterus Ears/Nose/Mouth/Throat: Mucous Membranes Moist Neck: Trachea Midline Respiratory: Symmetrical Chest Expansion and Respiratory Effort, Clear to Auscultation Cardiovascular: NL Sounds; No Murmurs; No JVD Abdominal: NL Sounds; No Tenderness; No Distention Lymphatic: No Cervical Adenopathy Extremities: No Edema Skin: No Rash or Ulcers Neurological: Alert and Oriented x 3, NL Muscle Strength and Tone Nutrition: Taking PO's Result Diagrams: 05/04/17 06:22 05/04/17 06:20 Additional Lab and Data: . Assess/Plan/Problems-Billing Assessment: Ms. Montemayor is a 71 yo female with DM, CKD, HTN and depression with PTSD who presented on 05/03/17 with recurrent abd pain and diarrhea secondary to C.Diff colitis. - Patient Problems (1) C. difficile colitis Current Visit: No Comment: - Improving slowly. - 3rd recurrence. No associated sepsis. - Appreciate ID consult. Plan for pulse treatment with vancomycin po. Start with vanco 125 po QID x 2 weeks. (2) CKD (chronic kidney disease) stage 3, GFR 30-59 ml/min Comment: - Cr at baseline. - Monitor. (3) Diabetes Comment: - BG 190-230. - Continue lantus with lispro SSI coverage for meals. (4) HTN (hypertension) Comment: - BP 120-130s. - Continue atenolol and amlodipine. - Hold losartan and hctz. (5) Depression Comment: - Stable - Continue Effexor and Zoloft. (6) History of pulmonary embolism Comment: Chronically anticoagulated with Eliquis (7) GERD (gastroesophageal reflux disease) Comment: - Continue omeprazole (8) Hypothyroidism Comment: - Continue Levothyroxine. (9) Full code status (10) DVT prophylaxis Comment: Eliquis Status and Disposition: Inpatient. Anticipate additional 3-4d LOS.
[2017-05-05] MEDS: Insulin GLARGINE(*) 1 UNITS UNIT SUBCUT SCH (23:37)
[2017-05-05] MEDS: Morphine INJ* 4 MG/ML 1 ML CARPUJECT IV PRN (23:38)
[2017-05-06 03:45] LABS: Urine Bacteria Absent (Absent); Urine Bilirubin Negative (Negative); Urine Glucose 2+(150 mg/dL) (Negative); Urine Nitrite Negative (Negative)
[2017-05-06] MEDS: Morphine INJ* 4 MG/ML 1 ML CARPUJECT IV PRN (04:07)
[2017-05-06] MEDS: Levothyroxine TAB* 100 MCG TAB PO SCH (05:55)
[2017-05-06] MEDS ORDERED: Omeprazole CAP* 20 MG PO SCH (07:30)
[2017-05-06 07:49] LABS: BUN/Creatinine Ratio 12.8 (8-20); Calcium 8.7 mg/dL (8.6-10.3); EGFR African American 35.5 (>60); EGFR Non-African American 27.6 (>60); Potassium 4.4 mmol/L (3.5-5.0)
[2017-05-06] MEDS: Insulin LISPRO* 1 UNITS UNIT SUBCUT SCH ×2 (09:32→12:57)
[2017-05-06] MEDS: Sertraline* 50 MG TAB PO SCH (09:33)
[2017-05-06] MEDS: Atorvastatin* 40 MG TAB PO SCH (09:33)
[2017-05-06] MEDS: Atenolol TAB* 50 MG PO SCH (09:33)
[2017-05-06] MEDS: Apixaban* 5 MG TAB PO SCH (09:33)
[2017-05-06] MEDS: amLODIPine TAB* 5 MG PO SCH (09:33)
[2017-05-06] MEDS: Vancomycin CAP* 125 MG CAP PO SCH ×2 (09:33→12:57)
[2017-05-06] MEDS: Venlafaxine EXT RELEASE CAP* 75 MG PO SCH (09:33)
[2017-05-06] MEDS: Potassium Chlor TAB* 10 MEQ TAB.ER PO SCH (09:33)
[2017-05-06 12:57] VITALS: BP 133/61
--- NOTE | 2017-05-06 15:14 | PN ---
Subjective Date of Service: 05/06/17 Interval History: Ms. Montemayor reports feeling better today. She has ambulated around the unit with physical therapy. She is noted to have had only one BM yesterday. She denies other complaint including chest pain, SOB, nausea, or abdominal pain. Objective Active Medications: Acetaminophen (Tylenol Tab*) 650 mg PO Q4H PRN Amlodipine Besylate (Norvasc Tab*) 10 mg PO DAILY [facility] Apixaban (Eliquis*) 5 mg PO BID [facility] Atenolol (Tenormin Tab*) 100 mg PO DAILY [facility] Atorvastatin Calcium (Lipitor*) 40 mg PO DAILY [facility] Dextrose (D50w Syringe 50 Ml*) 12.5 gm IV PUSH .FOR FS < 60 - SS PRN Insulin Glargine (Lantus(*)) 30 units SUBCUT 2100 [facility] Insulin Human Lispro (Humalog*) 0 units SUBCUT ACHS [facility] Levothyroxine Sodium (Synthroid Tab*) 200 mcg PO 0600 [facility] Morphine Sulfate (Morphine Inj (Syringe)*) 4 mg IV Q4H PRN Omeprazole (Prilosec Cap*) 20 mg PO DAILY@0730 [facility] Ondansetron HCl (Zofran Inj*) 4 mg IV Q4H PRN Oxymetazoline HCl (Afrin 0.05% Nasal [place]*) 2 spray BOTH NARES BID PRN Potassium Chloride (Klor Con Er Tab*) 10 meq PO DAILY [facility] Sertraline HCl (Zoloft*) 50 mg PO DAILY [facility] Vancomycin HCl (Vancomycin Cap*) 125 mg PO QID [facility] Venlafaxine HCl (Effexor Xr Cap*) 150 mg PO DAILY [facility] Vital Signs: Temp Pulse Resp BP Pulse Ox 97.6 F 76 18 133/61 98 05/06/17 12:39 05/06/17 12:39 05/06/17 12:39 05/06/17 12:39 05/06/17 12:39 Oxygen Devices in Use Now: None Appearance: Elderly female lying in bed in NAD Eyes: No Scleral Icterus Ears/Nose/Mouth/Throat: Mucous Membranes Moist Neck: Trachea Midline Respiratory: Symmetrical Chest Expansion and Respiratory Effort, Clear to Auscultation Cardiovascular: NL Sounds; No Murmurs; No JVD, No Edema Abdominal: NL Sounds; No Tenderness; No Distention Lymphatic: No Cervical Adenopathy Extremities: No Edema Skin: No Rash or Ulcers Neurological: Alert and Oriented x 3, NL Muscle Strength and Tone Nutrition: Taking PO's Result Diagrams: 05/04/17 06:22 05/06/17 07:13 Additional Lab and Data: . Assess/Plan/Problems-Billing Assessment: Ms. Montemayor is a 71 yo female with DM, CKD, HTN and depression with PTSD who presented on 05/03/17 with recurrent abd pain and diarrhea secondary to C.Diff colitis. - Patient Problems (1) C. difficile colitis Current Visit: No Comment: - Minimal diarrhea, no abdominal pain. - 3rd recurrence. No associated sepsis. - Appreciate ID consult. Plan for pulse treatment with vancomycin po. Start with vanco 125 po QID x 2 weeks. (2) CKD (chronic kidney disease) stage 3, GFR 30-59 ml/min Comment: - Cr at baseline. - Monitor. (3) Diabetes Comment: - BG 190-230. - Resume home humulin. (4) HTN (hypertension) Comment: - BP 120-130s. - Continue atenolol and amlodipine. - Hold losartan and hctz. (5) Depression Comment: - Stable - Continue Effexor and Zoloft. (6) History of pulmonary embolism Comment: - Chronically anticoagulated with Eliquis (7) GERD (gastroesophageal reflux disease) Comment: - Continue omeprazole (8) Hypothyroidism Comment: - Continue Levothyroxine. (9) Full code status (10) DVT prophylaxis Comment: Eliquis Status and Disposition: Inpatient. Discharge to home.
--- NOTE | 2017-05-07 05:36 | DS ---
CC: Dr. Zurita; Dr. Rivers * [facility] MEDICINE DISCHARGE SUMMARY: DATE OF ADMISSION: 05/03/17 DATE OF DISCHARGE: 05/06/17 PRIMARY CARE PROVIDER: Dr. Zurita. ATTENDING PHYSICIAN: Dr. Kiana Quintero * (dictation provided by Farzaneh Guthrie NP ). PRIMARY DIAGNOSIS: Clostridium difficile, third recurrence. SECONDARY DIAGNOSES: 1. Hypertension. 2. Gastroesophageal reflux disease. 3. Depression. 4. Posttraumatic stress disorder. 5. Chronic renal failure. 6. History of diabetes, insulin dependent. 7. Chronic pain. 8. Diabetic retinopathy. MEDICATIONS AT THE TIME OF DISCHARGE: 1. Vancomycin 125 mg via taper, which will be 1 tab p.o. 4 times daily x2 weeks , then 1 tab 3 times daily x2 weeks, then 1 tab 2 times daily x2 weeks, then 1 tab daily x2 weeks, then 1 tab every other day x10 days, and then 1 tab every third day x10 days. 2. Hold losartan. 3. Hold hydrochlorothiazide. 4. Venlafaxine XR 150 mg p.o. daily. 5. Omeprazole 20 mg p.o. daily. 6. Sertraline 50 mg p.o. daily. 7. Levothyroxine 200 mcg p.o. q.a.m. 8. Potassium chloride 10 mEq p.o. daily. 9. Humulin insulin 70/30, 25 units subcutaneously b.i.d. 10. Fluticasone nasal spray 2 sprays both nares daily. 11. Apixaban 5 mg p.o. b.i.d. 12. Calcium carbonate with vitamin D 1 tab p.o. daily. 13. Atorvastatin 40 mg p.o. daily. 14. Atenolol 100 mg p.o. daily. 15. Amlodipine 10 mg p.o. daily. 16. Ascorbic acid 500 mg p.o. daily. HOSPITAL COURSE: Ms. Montemayor is a 71-year-old female with past medical history as outlined above who presented to the hospital on 05/03/17 with concern for diarrhea and abdominal pain. Please see dictated H and P from Niall Bolaños for complete details. In brief, the patient has had 2 previous episodes of C. difficile colitis. She had just completed vancomycin orally approximately 2 days prior to admission when she had the onset of symptoms again. In the emergency room, she had an abdomen and pelvis CT, which showed "mucosal thickening of the colon, which is nonspecific, this is most prominent in the rectum and sigmoid colon and may represent colitis. Cystic lesion in the uncinate process is unchanged from previous exam measuring 9 mm. This appears smaller than 11/13/15 that may represent sequela from prior pancreatitis." The patient had C. difficile sent and it was positive in the stool. Ms. Montemayor was seen in consultation by Dr. Driss Rivers from the Infectious Disease services. He recommended that the patient be treated with vancomycin taper as outlined above. With this, Ms. Montemayor is doing much better. She has had resolution of her diarrhea and abdominal pain. She is tolerating oral intake and ambulating on the unit independently. Ms. Montemayor is medically stable for discharge to home to complete a long course of vancomycin and to follow up with Dr. Zurita and Dr. Rivers. During the hospitalization, Ms. Montemayor's hydrochlorothiazide and losartan were held. At the time of discharge, her blood pressure was running approximately 130s off of these medications. I have recommended that she hold both of these until she follows up with her primary care physician. I will note that her blood glucose has been reasonably well controlled running about 170 to 220 while inpatient, but she has been on an alternate regimen using Lantus rather than her home Humulin. She is to go back on her home Humulin and continue to follow with Dr. Zurita regarding blood glucose control. DISPOSITION: Home. DIET: Consistent carbohydrate. ACTIVITY: As tolerated. FOLLOWUP: 1. Please follow up with Dr. Zurita and appointment will be made for the patient for the next 1 to 2 weeks. 2. Please follow up with Dr. Rivers in the next month. TIME SPENT: Approximately 60 minutes were spent on the discharge of this patient, more than half the time spent with the patient at the bedside reviewing the events leading up to this hospitalization, performing the physical examination, and reviewing my plan of care. FARZANEH GUTHIRE, KENA [id number]/[facility] #: [id number] AZAEL
== END 2017-05-06 17:30 | disposition home health service (06) | DRG 373 ==
LOC: ED 09:12 → MED 15:19
PROVIDERS: ADMIT Internal Medicine; ATTEND Internal Medicine
DX: A04.71 Enterocolitis due to Clostridium difficile, recurrent (principal); E11.22 Type 2 diabetes mellitus with diabetic chronic kidney disease; N18.3 Chronic kidney disease, stage 3 (moderate); F32.9 Major depressive disorder, single episode, unspecified; I12.9 Hypertensive chronic kidney disease with stage 1 through stage 4 chronic kidney disease, or unspecified chronic kidney disease; K21.9 Gastro-esophageal reflux disease without esophagitis; F43.10 Post-traumatic stress disorder, unspecified; G89.29 Other chronic pain; E11.319 Type 2 diabetes mellitus with unspecified diabetic retinopathy without macular edema; F12.90 Cannabis use, unspecified, uncomplicated; E86.0 Dehydration; E03.9 Hypothyroidism, unspecified; E78.00 Pure hypercholesterolemia, unspecified; J45.909 Unspecified asthma, uncomplicated; K58.9 Irritable bowel syndrome, unspecified; M19.90 Unspecified osteoarthritis, unspecified site; F41.0 Panic disorder [episodic paroxysmal anxiety]; Z79.4 Long term (current) use of insulin; Z87.891 Personal history of nicotine dependence; Z86.718 Personal history of other venous thrombosis and embolism; Z86.711 Personal history of pulmonary embolism; Z85.3 Personal history of malignant neoplasm of breast; Z92.3 Personal history of irradiation; Z90.49 Acquired absence of other specified parts of digestive tract; Z82.5 Family history of asthma and other chronic lower respiratory diseases; Z82.3 Family history of stroke; Z80.3 Family history of malignant neoplasm of breast
CPT/HCPCS: 36415; 74177; 80048; 80053; 81003; 81015; 82270; 83605; 83630; 83690; 83880; 85025; 85610; 85730; 86140; 87045; 87046; 87077; 87086; 87186; 87328; 87329; 87493; 87899; A9270-GY; J2270; J2405; Q9967

== ENCOUNTER 2017-06-19 03:00 | Inpatient (IN) | payer MEDICARE ==
[2017-06-19] MEDS ORDERED: NS 0.9% 1000 ML*IV.FLUID IV ONE (03:35)
[2017-06-19 05:01] LABS: ABS Basophils 0.1 10^3/ul (0-0.2); ABS Eosinophils 0 10^3/ul (0-0.6); ABS Lymphocytes 1.5 10^3/ul (1.0-4.8); ABS Monocytes 0.4 10^3/ul (0-0.8); ABS Neutrophils 6.3 10^3/ul (1.5-7.7); ABS Nucleated RBC 0 10^3/ul; Eosinophil % 0.6 % (0-6); Hematocrit 34 % (35-47); Hemoglobin 11.7 g/dl (12.0-16.0); Lymphocyte % 17.6 % (25-47); Mean Corpuscular HGB Conc 34 g/dl (31-36); Mean Corpuscular Hemoglobin 28 pg (27-31); Mean Corpuscular Volume 82 fL (80-97); Mean Platelet Volume 9 um3 (7.4-10.4); Nucleated Red Blood Cells % 0.1; Platelet Count 305 10^3/ul (150-450); Red Blood Count 4.19 10^6/ul (4.0-5.4); Red Cell Distribution Width 15 % (10.5-15); White Blood Count 8.2 10^3/ul (3.5-10.8)
[2017-06-19 05:12] LABS: EGFR Non-African American 20.2 (>60)
[2017-06-19 05:21] LABS: INR 0.92 (0.77-1.02)
[2017-06-19] MEDS ORDERED: Ondansetron INJ* 2 MG/ML VIAL IV PRN (05:41)
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
[2017-06-19] MEDS ORDERED: Insulin ISOPH/REG 70/30 (*) 1 UNITS UNIT SUBCUT SCH (07:30)
--- NOTE | 2017-06-19 07:31 | RAD ---
INDICATION: Weakness COMPARISON: March 15, 2017 TECHNIQUE: An AP portable view obtained at 0350 hours is submitted. FINDINGS: Bones/Soft Tissues: There are no acute bony findings. Cardiomediastinal: The cardiomediastinal silhouette is normal. Lungs: There are no infiltrates. There is mild hyperinflation. Pleura: There are no pleural effusions. Other: None IMPRESSION: NO ACTIVE DISEASE.
--- NOTE | 2017-06-19 07:31 | RAD ---
INDICATION: Fall. And coronal injury COMPARISON: CT brain February 20, 2017 TECHNIQUE: Noncontrast axial source images were acquired from the skull base to the vertex. FINDINGS: Ventricles/sulci: There is cortical atrophy with compensatory dilatation of the CSF spaces. Brain parenchyma: There is periventricular and subcortical white matter change compatible with chronic ischemia. Intracranial hemorrhage:None. Extra-axial spaces: There are no abnormal extra axial fluid collections or evidence of extra-axial mass. Calvarium: There is no calvarial fracture or other calvarial abnormality. Scalp: There is no evidence of scalp or extracalvarial soft tissue abnormality. Paranasal sinuses/mastoid: The paranasal sinuses and mastoid air cells are clear. Other: None. IMPRESSION: CORTICAL ATROPHY WITH CHRONIC MICROVASCULAR ISCHEMIC CHANGES. NO ACUTE FINDINGS.
[2017-06-19] MEDS: amLODIPine TAB* 5 MG PO SCH (10:23)
[2017-06-19] MEDS: Calcium/Vitamin D TAB 250/125* TAB PO SCH (10:23)
[2017-06-19] MEDS: Omeprazole CAP* 20 MG PO SCH (10:23)
[2017-06-19] MEDS: Sertraline* 50 MG TAB PO SCH (10:23)
[2017-06-19] MEDS: Apixaban* 5 MG TAB PO SCH ×2 (10:23→21:45)
[2017-06-19] MEDS: Vancomycin CAP* 125 MG CAP PO SCH (10:23)
[2017-06-19] MEDS: Atenolol TAB* 50 MG PO SCH (10:24)
[2017-06-19] MEDS: Venlafaxine EXT RELEASE CAP* 75 MG PO SCH (10:24)
[2017-06-19] MEDS: Atorvastatin* 40 MG TAB PO SCH (10:24)
[2017-06-19] MEDS: Ascorbic Acid TAB* 500 MG PO SCH (10:24)
[2017-06-19] MEDS: Fluticasone NASAL SPRAY 50MCG* 16 gm SPRAY BTL BOTH NARES SCH (10:25)
[2017-06-19] MEDS: Levothyroxine TAB* 100 MCG TAB PO SCH (10:51)
[2017-06-19] MEDS ORDERED: Dextrose 50% Syringe 50 ML* 25 GM/50 ML SYRINGE IV PUSH PRN (12:35)
[2017-06-19] MEDS ORDERED: Insulin GLARGINE(*) 1 UNITS UNIT SUBCUT SCH (13:00)
[2017-06-19] MEDS ORDERED: Insulin LISPRO* 1 UNITS UNIT SUBCUT ONE ×2 (13:31→13:37)
[2017-06-19] MEDS: Insulin GLARGINE(*) 1 UNITS UNIT SUBCUT SCH (13:40)
[2017-06-19] MEDS: Insulin LISPRO* 1 UNITS UNIT SUBCUT SCH ×3 (13:41→21:46)
--- NOTE | 2017-06-19 14:34 | HP ---
CC: Dr. Zurita * ADMISSION HISTORY AND PHYSICAL: DATE OF ADMISSION: 06/19/17 PRIMARY CARE PROVIDER: Dr. Zurita. HEALTHCARE PROXY: Peewee Smith. CODE STATUS: Full. HISTORY OBTAINED: From interview with the patient. RELIABILITY: Poor. CHIEF COMPLAINT: Weakness and fall. HISTORY OF PRESENT ILLNESS: This is a 71-year-old female with recent admission from 05/03/17 to 05/06/17 with recurrent C. diff colitis, discharged on vancomycin taper, who had been improving with diarrhea completely resolved. Not taking vancomycin daily. However, not leaving the house in the last week to get medication secondary to inability to obtain transportation and has ran out of insulin. Concurrent with running out of her insulin, she has had increased frequency of urination, and over the last 3 days has felt increasingly weak with cramping all over and subsequent 3 falls on the day of admission. She has subjective fevers as well as cough and a sore throat, but no shortness of breath or chest pain. On the day of admission, she obtained her insulin, had a fingerstick of 410, had administered 40 units. She ate some food, although she cannot remember what and then after administrated another 25 units of insulin. She attempted to get her glucometer from the floor after she dropped it and bent over, fell on the floor, could not get up, and asked her partner, Peewee Smith, to activate EMS. EMS found the patient on the floor, alert but weak, transported her to the emergency room where she was seen by this author. The patient denies loss of consciousness or head strike. PAST MEDICAL HISTORY: Includes: 1. History of pulmonary embolism approximately 2 years prior to presentation per the patient's report. 2. Insulin dependent type 2 diabetes mellitus. 3. Stage 3 kidney disease. 4. Hypertension. 5. Depression. 6. PTSD. 7. Recurrent gastroenteritis. 8. GERD. 9. Chronic pain. 10. Diabetic retinopathy. MEDICATIONS: Reviewed with the patient; 1. Vancomycin 125 mg daily. It has been tapered to every other day than every third day per discharge recommendations dictated on 06/06/[address] Farzaneh Guthrie. 2. Venlafaxine XR 150 mg daily. 3. Omeprazole 20 mg daily. 4. Sertraline 50 mg daily. 5. Levothyroxine 200 mcg daily. 6. Potassium chloride 10 mEq daily. 7. [place] insulin 70/30, 25 units twice daily. 8. Fluticasone 2 sprays both nares twice daily. 9. Apixaban 5 mg twice daily. 10. Calcium carbonate with vitamin D 1 tab daily. 11. Atorvastatin 40 mg daily. 12. Atenolol 100 mg daily. 13. Amlodipine 10 mg daily. 14. Ascorbic acid 500 mg daily. ALLERGIES: 1. HEPARIN. 2. HYDROCODONE. 3. METFORMIN. FAMILY HISTORY: Denies CAD or CVAs. SOCIAL HISTORY: Lives alone with her partner. Quit smoking in 1983. Denies alcohol. REVIEW OF SYSTEMS: As per HPI including cramping, fatigue, subjective fevers, cough, sore throat, urinary frequency. Otherwise, all other systems reviewed negative. PHYSICAL EXAMINATION GENERAL: Disheveled female, lying in 20 degrees in bed, interactive, pleasant, in no apparent distress. VITAL SIGNS: In the emergency room 126/79, heart rate 73, respiratory rate 16, 100% on room air, T-max 98.9. HEENT: Oropharynx is clear. She has moist mucous membranes. Sclerae are anicteric. NECK: She has no elevated JVD. LUNGS: Clear to auscultation. HEART: She has regular rate and rhythm. No murmurs, rubs, or gallops. ABDOMEN: Soft and nondistended. Mild tenderness diffusely. EXTREMITIES: Warm and well perfused. She has skin breakdown of her left toes injured in the fall. NEUROLOGIC: She is alert and oriented x3. Cranial nerves II through XII are intact. PSYCH: No apparent anxiety, agitation or depression, although her behavior is not entirely appropriate, telling this author that she thinks he is good looking and enquiring more in depth about his sabianist beliefs. DIAGNOSTIC STUDIES/LABORATORY DATA: Labs reviewed; hemoglobin 11.7 at baseline , white blood cell count 8.2, platelets 305. Anion gap is 13. BUN is 48, creatinine is 2.36, bicarb 23, lactic acid 1.3, glucose 161. Troponin I 0.01. Alk phos 140. Data reviewed, preliminary read, CT head has no intracranial hemorrhage. Chest x- ray, no active cardiopulmonary disease on this author's interpretation. EKG, normal sinus rhythm, left axis, late R-wave progression, T-wave inversion in aVL, and flattening in lead 1. ASSESSMENT AND PLAN: This is a 71-year-old female with recurrent admissions for her Clostridium diff colitis, now presenting with fatigue, multiple falls in home in the setting of medication nonadherence secondary to inability to afford ride to get insulin. 1. Acute on chronic kidney injury in the setting of dehydration in the setting of recent Clostridium diff colitis, poor access to food as well as recent hyperglycemia. Ordered for 2.5 L in the emergency room. We will not give more than this given history of diastolic heart dysfunction. Trend kidney function after fluid administration. 2. Clostridium diff colitis. Continue with vancomycin 125 mg cap daily, then taper as outlined in discharge note on 05/06/17. 3. Fatigue and weakness backing the setting of dehydration, hyperglycemia, and poor access to food. Additionally, add on TSH. Additionally, please note urinalysis is pending at the time of this dictation. Please follow urinalysis to rule out additional urinary tract infection as the etiology of fatigue and falls. 4. Type 2 diabetes. Continue her home insulin, fingersticks with meals and at before bedtime. Added on hemoglobin A1c to be followed. Last checked in February 9.9%. 5. History of pulmonary embolism noted on the patient 2 years prior, unclear if this or not. Continue on Eliquis, although please note if kidney function worsens, we need to discontinue if creatinine greater than 2.5. 6. DVT prophylaxis: Eliquis. [id number]/[facility] #: [id number] AZAEL
[2017-06-19] MEDS: Acetaminophen TAB* 325 MG PO PRN ×2 (14:50→21:45)
--- NOTE | 2017-06-19 15:54 | PN ---
Subjective Date of Service: 06/19/17 Interval History: Patient complains of continued weakness, and malaise with URI symptoms. Patient also complains of pain in her shoulder and neck from repeated falls. Patient denies sick contacts. Patient had one soft stool today after not having diarrhea for a "while." Patient states that she fell 7 times in the past 3 days without LOC and just feels like her legs give out. Patient denies CP, Palpitations, N/V, abdominal pain, dysuria, F/C, dizziness, or other pain. Patient states that she checks her blood sugar twice daily and that it has usually been well controlled. Patient denies numbness or tingling in her B/L arms or legs. Patient would be amenable to more help at home. Family History: Unchanged from Admission Social History: Unchanged from Admission Past Medical History: Unchanged from Admission Objective Active Medications: Acetaminophen (Tylenol Tab*) 650 mg PO Q4H PRN PRN Reason: FEVER/PAIN Last Admin: 06/19/17 14:50 Dose: 650 mg Amlodipine Besylate (Norvasc Tab*) 10 mg PO DAILY [facility] Last Admin: 06/19/17 10:23 Dose: 10 mg Apixaban (Eliquis*) 5 mg PO BID [facility] Last Admin: 06/19/17 10:23 Dose: 5 mg Ascorbic Acid (Vitamin C Tab*) 500 mg PO DAILY [facility] Last Admin: 06/19/17 10:24 Dose: 500 mg Atenolol (Tenormin Tab*) 100 mg PO DAILY [facility] Last Admin: 06/19/17 10:24 Dose: 100 mg Atorvastatin Calcium (Lipitor*) 40 mg PO DAILY [facility] Last Admin: 06/19/17 10:24 Dose: 40 mg Calcium/Vitamin D (Oscal D Tab 250/125*) 1 tab PO DAILY [facility] Last Admin: 06/19/17 10:23 Dose: 1 tab Dextrose (D50w Syringe 50 Ml*) 12.5 gm IV PUSH .FOR FS < 60 - SS PRN PRN Reason: FS < 60 Fluticasone Propionate (Flonase Nasal [place] 50mcg*) 2 spray BOTH NARES DAILY [facility] Last Admin: 06/19/17 10:25 Dose: 2 spray Heparin Sodium (Porcine) (Heparin Flush Picc/Ml/Cvc(*)) 1 ml FLUSH 0600,1800 [facility] PRN Reason: Protocol Insulin Glargine (Lantus(*)) 45 units SUBCUT Q24H [facility] Last Admin: 06/19/17 13:40 Dose: 45 units Insulin Human Lispro (Humalog*) 0 units SUBCUT ACHS [facility] PRN Reason: Protocol Last Admin: 06/19/17 13:41 Dose: 15 units Levothyroxine Sodium (Synthroid Tab*) 200 mcg PO 0600 [facility] Last Admin: 06/19/17 10:51 Dose: Not Given Omeprazole (Prilosec Cap*) 20 mg PO DAILY [facility] Last Admin: 06/19/17 10:23 Dose: 20 mg Ondansetron HCl (Zofran Inj*) 4 mg IV Q4H PRN PRN Reason: NAUSEA/VOMITING Sertraline HCl (Zoloft*) 50 mg PO DAILY [facility] Last Admin: 06/19/17 10:23 Dose: 50 mg Vancomycin HCl (Vancomycin Cap*) 125 mg PO DAILY [facility] Last Admin: 06/19/17 10:23 Dose: 125 mg Venlafaxine HCl (Effexor Xr Cap*) 150 mg PO DAILY [facility] Last Admin: 06/19/17 10:24 Dose: 150 mg Vital Signs - 8 hr 06/19/17 06/19/17 08:27 13:00 Temperature 97.4 F Pulse Rate 81 74 Respiratory 16 16 Rate Blood Pressure 134/63 (mmHg) O2 Sat by Pulse 97 Oximetry Oxygen Devices in Use Now: None Appearance: Patient is a 71yo female who appears older than stated age, is somewhat disheveled and is sitting in the bed in [facility]. Eyes: No Scleral Icterus, PERRLA Ears/Nose/Mouth/Throat: NL Teeth, Lips, Gums, Mucous Membranes Moist, - - Pharyngeal erythema. Neck: NL Appearance and Movements; NL JVP, Trachea Midline Respiratory: Symmetrical Chest Expansion and Respiratory Effort, Clear to Auscultation, - - Diminished Cardiovascular: NL Sounds; No Murmurs; No JVD, RRR, No Edema Abdominal: NL Sounds; No Tenderness; No Distention, No Hepatosplenomegaly Lymphatic: No Cervical Adenopathy Extremities: No Edema, No Clubbing, Cyanosis Skin: No Rash or Ulcers, No Nodules or Sclerosis Neurological: Alert and Oriented x 3, NL Sensation, - - 4-/5 strength throughout without focality. CN II-XII intact. Result Diagrams: 06/19/17 04:30 06/19/17 04:30 Additional Lab and Data: Lab Results 06/19/17 06/19/17 06/19/17 Range/Units 04:20 04:30 04:30 WBC 8.2 (3.5-10.8) 10^3/ul RBC 4.19 (4.0-5.4) 10^6/ul Hgb 11.7 L (12.0-16.0) g/dl Hct 34 L (35-47) % MCV 82 (80-97) fL MCH 28 (27-31) pg MCHC 34 (31-36) g/dl RDW 15 (10.5-15) % Plt Count 305 (150-450) 10^3/ul MPV 9 (7.4-10.4) um3 Neut % (Auto) 76.4 (38-83) % Lymph % (Auto) 17.6 L (25-47) % [place] % (Auto) 4.7 (1-9) % Eos % (Auto) 0.6 (0-6) % Baso % (Auto) 0.7 (0-2) % Absolute Neuts (auto) 6.3 (1.5-7.7) 10^3/ul Absolute Lymphs (auto) 1.5 (1.0-4.8) 10^3/ul Absolute Monos (auto) 0.4 (0-0.8) 10^3/ul Absolute Eos (auto) 0 (0-0.6) 10^3/ul Absolute Basos (auto) 0.1 (0-0.2) 10^3/ul Absolute Nucleated RBC 0 10^3/ul Nucleated RBC % 0.1 INR (Anticoag Therapy) 0.92 (0.77-1.02) APTT 25.2 L (26.0-36.3) seconds Sodium (133-145) mmol/L Potassium (3.5-5.0) mmol/L Chloride (101-111) mmol/L Carbon Dioxide (22-32) mmol/L Anion Gap (2-11) mmol/L BUN (6-24) mg/dL Creatinine (0.51-0.95) mg/dL Est GFR ( Amer) (>60) Est GFR (Non-Af Amer) (>60) BUN/Creatinine Ratio (8-20) Glucose (70-100) mg/dL Lactic Acid (0.5-2.0) mmol/L Calcium (8.6-10.3) mg/dL Total Bilirubin (0.2-1.0) mg/dL AST (13-39) U/L ALT (7-52) U/L Alkaline Phosphatase (34-104) U/L Troponin I (<0.04) ng/mL Total Protein (6.4-8.9) g/dL Albumin (3.2-5.2) g/dL Globulin (2-4) g/dL Albumin/Globulin Ratio (1-3) TSH Blood Type B Positive Antibody Screen Pending 06/19/17 06/19/17 Range/Units 04:30 04:30 WBC (3.5-10.8) 10^3/ul RBC (4.0-5.4) 10^6/ul Hgb (12.0-16.0) g/dl Hct (35-47) % MCV (80-97) fL MCH (27-31) pg MCHC (31-36) g/dl RDW (10.5-15) % Plt Count (150-450) 10^3/ul MPV (7.4-10.4) um3 Neut % (Auto) (38-83) % Lymph % (Auto) (25-47) % [place] % (Auto) (1-9) % Eos % (Auto) (0-6) % Baso % (Auto) (0-2) % Absolute Neuts (auto) (1.5-7.7) 10^3/ul Absolute Lymphs (auto) (1.0-4.8) 10^3/ul Absolute Monos (auto) (0-0.8) 10^3/ul Absolute Eos (auto) (0-0.6) 10^3/ul Absolute Basos (auto) (0-0.2) 10^3/ul Absolute Nucleated RBC 10^3/ul Nucleated RBC % INR (Anticoag Therapy) (0.77-1.02) APTT (26.0-36.3) seconds Sodium 133 (133-145) mmol/L Potassium 3.8 (3.5-5.0) mmol/L Chloride 97 L (101-111) mmol/L Carbon Dioxide 23 (22-32) mmol/L Anion Gap 13 H (2-11) mmol/L BUN 48 H (6-24) mg/dL Creatinine 2.36 H (0.51-0.95) mg/dL Est GFR ( Amer) 25.9 (>60) Est GFR (Non-Af Amer) 20.2 (>60) BUN/Creatinine Ratio 20.3 H (8-20) Glucose 161 H (70-100) mg/dL Lactic Acid 1.3 (0.5-2.0) mmol/L Calcium 10.3 (8.6-10.3) mg/dL Total Bilirubin 0.30 (0.2-1.0) mg/dL AST 24 (13-39) U/L ALT 19 (7-52) U/L Alkaline Phosphatase 140 H (34-104) U/L Troponin I 0.01 (<0.04) ng/mL Total Protein 7.8 (6.4-8.9) g/dL Albumin 4.3 (3.2-5.2) g/dL Globulin 3.5 (2-4) g/dL Albumin/Globulin Ratio 1.2 (1-3) TSH Pending Blood Type Antibody Screen Microbiology and Other Data: Microbiology 06/19/17 15:05 Influenza Types A,B Antigen (ANGELA) - Final Nasal Specimen received for Influenza A/B Molecular testing Assess/Plan/Problems-Billing Assessment: Patient is a 71yo female with a PMH significant for DM II, C Diff currently on Vancomycin, CKD, Depression, PTSD who presents with weakness, falls, URI symptoms, Diabetic issues and positive Flu B. - Patient Problems (1) Falls frequently Current Visit: Yes Status: Acute Code(s): R29.6 - REPEATED FALLS SNOMED Code(s): 392827096 Comment: 7 falls in last 3 days per patient. Moderate pain in neck and shoulder. CT scan of head negative. Likely multifactorial from dehydration, Flu, diabetes. PT, will likely need more help at home due to non-compliance with medications. (2) Influenza B Current Visit: Yes Status: Acute Code(s): J10.1 - FLU DUE TO OTH IDENT INFLUENZA VIRUS W OTH RESP MANIFEST SNOMED Code(s): 16977741 Comment: Likely contributing to weakness and falls. No respiratory distress, Hypoxia, or hemodynamic instability. Start Tamiflu. (3) LANE (acute kidney injury) Current Visit: No Status: Acute Priority: Medium Code(s): N17.9 - ACUTE KIDNEY FAILURE, UNSPECIFIED SNOMED Code(s): 67744554 Comment: Cret increased to 2.81. Up from baseline of aruond 2. 2.5L given. No more fluids due to history of overload. Will monitor. Renally dose medications. (4) C. difficile colitis Current Visit: No Status: Acute Comment: One episode of soft stool, no abdominal pain. Currently being treated with vancomycin PO. Likely not a recurrence. Will conplete course. Follow up with ID outpatient. Patient also tested positive for Klebsiella Oxytoca last admission. (5) History of pulmonary embolism Current Visit: No Status: Acute Code(s): Z86.711 - PERSONAL HISTORY OF PULMONARY EMBOLISM SNOMED Code(s): 444464638 Comment: Chronically anticoagulated with Eliquis (6) Depression Current Visit: No Status: Chronic Priority: Medium Code(s): F32.9 - MAJOR DEPRESSIVE DISORDER, SINGLE EPISODE, UNSPECIFIED SNOMED Code(s): 16700186 Comment: Stable Continue Effexor and Zoloft. (7) Diabetes Current Visit: No Status: Chronic Priority: High Code(s): E11.9 - TYPE 2 DIABETES MELLITUS WITHOUT COMPLICATIONS SNOMED Code(s): 86788129 Comment: BG up to 392. Basal lantus with SSI. Will monitor. (8) GERD (gastroesophageal reflux disease) Current Visit: No Status: Chronic Priority: Medium Code(s): K21.9 - GASTRO -ESOPHAGEAL REFLUX DISEASE WITHOUT ESOPHAGITIS SNOMED Code(s): 334775575 Comment: Continue omeprazole (9) HTN (hypertension) Current Visit: No Status: Chronic Priority: Medium Code(s): I10 - ESSENTIAL (PRIMARY) HYPERTENSION SNOMED Code(s): 68049783 Comment: Normotensive. Continue amlodipine and atenolol (10) Hypothyroidism Current Visit: No Status: Chronic Code(s): E03.9 - HYPOTHYROIDISM, UNSPECIFIED SNOMED Code(s): 36781966 Comment: Continue Levothyroxine. (11) DVT prophylaxis Current Visit: No Status: Acute Code(s): LGQ9955 - SNOMED Code(s): 955821085 Comment: Ayad (12) Full code status Current Visit: No Status: Acute Code(s): Z78.9 - OTHER SPECIFIED HEALTH STATUS SNOMED Code(s): 579962180 Status and Disposition: Admitted OBV. Will discharge when able to talk care of self at home.
[2017-06-19] MEDS ORDERED: Insulin LISPRO* 1 UNITS UNIT SUBCUT SCH (16:30)
[2017-06-19] MEDS: Oseltamivir CAP* 30 MG CAP PO SCH (17:49)
[2017-06-19] MEDS ORDERED: Oseltamivir CAP* 30 MG CAP PO SCH (21:00)
[2017-06-19 21:09] LABS: Urine Appearance Cloudy; Urine Blood Negative (Negative); Urine Color Yellow; Urine Ketones Negative (Negative); Urine Protein 2+(100 mg/dL) (Negative); Urine Specific Gravity 1.013 (1.010-1.030); Urine Urobilinogen Negative (Negative)
[2017-06-19] MEDS: guaiFENesin LIQ* 100 MG/5 ML UDC PO PRN (21:46)
[2017-06-20] MEDS: traMADol TAB* 50 MG PO PRN ×4 (00:30→20:28)
[2017-06-20] MEDS: guaiFENesin LIQ* 100 MG/5 ML UDC PO PRN ×2 (02:52→08:16)
[2017-06-20] MEDS: guaiFENesin/CODIEN 100MG-10MG* 5 ML UDC PO PRN ×3 (04:13→22:21)
[2017-06-20] MEDS: Acetaminophen TAB* 325 MG PO PRN ×3 (04:13→13:27)
[2017-06-20] MEDS: Levothyroxine TAB* 100 MCG TAB PO SCH (05:29)
[2017-06-20 05:52] LABS: ABS Basophils 0.1 10^3/ul (0-0.2); ABS Eosinophils 0.1 10^3/ul (0-0.6); ABS Lymphocytes 1.2 10^3/ul (1.0-4.8); ABS Monocytes 0.5 10^3/ul (0-0.8); ABS Neutrophils 4.4 10^3/ul (1.5-7.7); ABS Nucleated RBC 0 10^3/ul; Eosinophil % 1.5 % (0-6); Hematocrit 27 % (35-47); Hemoglobin 9.1 g/dl (12.0-16.0); Lymphocyte % 19.5 % (25-47); Mean Corpuscular HGB Conc 34 g/dl (31-36); Mean Corpuscular Hemoglobin 28 pg (27-31); Mean Corpuscular Volume 83 fL (80-97); Mean Platelet Volume 8 um3 (7.4-10.4); Nucleated Red Blood Cells % 0; Platelet Count 213 10^3/ul (150-450); Red Blood Count 3.26 10^6/ul (4.0-5.4); Red Cell Distribution Width 15 % (10.5-15); White Blood Count 6.3 10^3/ul (3.5-10.8)
[2017-06-20 06:14] LABS: EGFR Non-African American 18.2 (>60)
[2017-06-20] MEDS: NS 0.9% 1000 ML* 1,000 ML IV SCH ×2 (07:59→18:00)
[2017-06-20] MEDS: Insulin LISPRO* 1 UNITS UNIT SUBCUT SCH ×4 (08:10→20:53)
[2017-06-20] MEDS: Fluticasone NASAL SPRAY 50MCG* 16 gm SPRAY BTL BOTH NARES SCH (08:11)
[2017-06-20] MEDS: Oseltamivir CAP* 30 MG CAP PO SCH (08:12)
[2017-06-20] MEDS: Vancomycin CAP* 125 MG CAP PO SCH (08:12)
[2017-06-20] MEDS: Calcium/Vitamin D TAB 250/125* TAB PO SCH (08:13)
[2017-06-20] MEDS: Atenolol TAB* 50 MG PO SCH (08:13)
[2017-06-20] MEDS: Omeprazole CAP* 20 MG PO SCH (08:14)
[2017-06-20] MEDS: amLODIPine TAB* 5 MG PO SCH (08:14)
[2017-06-20] MEDS: Ascorbic Acid TAB* 500 MG PO SCH (08:14)
[2017-06-20] MEDS: Venlafaxine EXT RELEASE CAP* 75 MG PO SCH (08:14)
[2017-06-20] MEDS: Sertraline* 50 MG TAB PO SCH (08:15)
[2017-06-20] MEDS: Atorvastatin* 40 MG TAB PO SCH (08:15)
[2017-06-20] MEDS: Insulin GLARGINE(*) 1 UNITS UNIT SUBCUT SCH (13:33)
[2017-06-20] MEDS ORDERED: Magnesium Sulfate 2 GM IV* 2 GM/50 ML BAG IVPB ONE (15:46)
--- NOTE | 2017-06-20 16:04 | PN ---
Subjective Date of Service: 06/20/17 Interval History: Patient states she feels better but still feels weak and gets slightly dizzy on standing. Patient complains of continued URI symptoms including 10/10 throat pain. Patient denies F/C, N/V, Abdominal Pain, dysuria, diarrhea, constipation, CP, SOB or other pain. Family History: Unchanged from Admission Social History: Unchanged from Admission Past Medical History: Unchanged from Admission Objective Active Medications: Acetaminophen (Tylenol Tab*) 650 mg PO Q4H PRN PRN Reason: FEVER/PAIN Last Admin: 06/20/17 13:27 Dose: 650 mg Amlodipine Besylate (Norvasc Tab*) 10 mg PO DAILY [facility] Last Admin: 06/20/17 08:14 Dose: 10 mg Ascorbic Acid (Vitamin C Tab*) 500 mg PO DAILY [facility] Last Admin: 06/20/17 08:14 Dose: 500 mg Atenolol (Tenormin Tab*) 100 mg PO DAILY [facility] Last Admin: 06/20/17 08:13 Dose: 100 mg Atorvastatin Calcium (Lipitor*) 40 mg PO DAILY [facility] Last Admin: 06/20/17 08:15 Dose: 40 mg Calcium/Vitamin D (Oscal D Tab 250/125*) 1 tab PO DAILY [facility] Last Admin: 06/20/17 08:13 Dose: 1 tab Dextrose (D50w Syringe 50 Ml*) 12.5 gm IV PUSH .FOR FS < 60 - SS PRN PRN Reason: FS < 60 Fluticasone Propionate (Flonase Nasal [place] 50mcg*) 2 spray BOTH NARES DAILY [facility] Last Admin: 06/20/17 08:11 Dose: 2 spray Guaifenesin (Robitussin*) 5 ml PO Q4H PRN PRN Reason: COUGH Last Admin: 06/20/17 08:16 Dose: 5 ml Guaifenesin/Codeine Phosphate (Robitussin Ac 100mg-10mg*) 5 ml PO Q6H PRN PRN Reason: COUGH Last Admin: 06/20/17 04:13 Dose: 5 ml Sodium Chloride (Ns 0.9% 1000 Ml*) 1,000 mls @ 100 mls/hr IV PER RATE [facility] Last Admin: 06/20/17 07:59 Dose: 100 mls/hr Magnesium Sulfate (Magnesium Sulfate 2 Gm Iv*) 2 gm in 50 mls @ 50 mls/hr IVPB ONCE ONE Stop: 06/20/17 16:45 Insulin Glargine (Lantus(*)) 45 units SUBCUT Q24H [facility] Last Admin: 06/20/17 13:33 Dose: 45 units Insulin Human Lispro (Humalog*) 0 units SUBCUT ACHS [facility] PRN Reason: Protocol Last Admin: 06/20/17 13:27 Dose: 6 units Levothyroxine Sodium (Synthroid Tab*) 200 mcg PO 0600 [facility] Last Admin: 06/20/17 05:29 Dose: 200 mcg Omeprazole (Prilosec Cap*) 20 mg PO DAILY [facility] Last Admin: 06/20/17 08:14 Dose: 20 mg Ondansetron HCl (Zofran Inj*) 4 mg IV Q4H PRN PRN Reason: NAUSEA/VOMITING Oseltamivir Phosphate (Tamiflu Cap*) 30 mg PO DAILY [facility] Stop: 06/23/17 09:01 Last Admin: 06/20/17 08:12 Dose: 30 mg Phenol/Menthol (Chloroseptic Throat [place]*) 1 spray MT TID PRN PRN Reason: SORE THROAT Sertraline HCl (Zoloft*) 50 mg PO DAILY [facility] Last Admin: 06/20/17 08:15 Dose: 50 mg Throat Lozenges (Chloraseptic Vinh*) 1 vinh MT Q6H PRN PRN Reason: SORE THROAT Tramadol HCl (Ultram*) 50 mg PO Q6H PRN PRN Reason: PAIN Last Admin: 06/20/17 13:26 Dose: 50 mg Vancomycin HCl (Vancomycin Cap*) 125 mg PO DAILY [facility] Last Admin: 06/20/17 08:12 Dose: 125 mg Venlafaxine HCl (Effexor Xr Cap*) 150 mg PO DAILY [facility] Last Admin: 06/20/17 08:14 Dose: 150 mg Vital Signs - 8 hr 06/20/17 06/20/17 06/20/17 08:00 08:04 08:15 Temperature 98.1 F Pulse Rate 73 Respiratory 20 16 16 Rate Blood Pressure 136/54 (mmHg) O2 Sat by Pulse 97 97 Oximetry 06/20/17 06/20/17 13:26 13:33 Temperature Pulse Rate Respiratory 20 20 Rate Blood Pressure (mmHg) O2 Sat by Pulse Oximetry Oxygen Devices in Use Now: None Appearance: Patient is a 71yo female who appears stated age and is sitting in the bed in [facility]. Eyes: No Scleral Icterus, PERRLA Ears/Nose/Mouth/Throat: NL Teeth, Lips, Gums, Clear Oropharnyx, Mucous Membranes Moist Neck: NL Appearance and Movements; NL JVP, Trachea Midline Respiratory: Symmetrical Chest Expansion and Respiratory Effort, Clear to Auscultation Cardiovascular: NL Sounds; No Murmurs; No JVD, RRR, No Edema Abdominal: NL Sounds; No Tenderness; No Distention, No Hepatosplenomegaly Lymphatic: No Cervical Adenopathy Extremities: No Edema, No Clubbing, Cyanosis Skin: No Rash or Ulcers, No Nodules or Sclerosis Neurological: Alert and Oriented x 3, NL Sensation, - - 4/5 strength throughout. Improved from previous exam. Result Diagrams: 06/20/17 05:36 06/20/17 05:36 Additional Lab and Data: Lab Results Microbiology and Other Data: Microbiology 06/19/17 15:05 Influenza Types A,B Antigen (ANGELA) - Final Nasal Specimen received for Influenza A/B Molecular testing Assess/Plan/Problems-Billing Assessment: Patient is a 71yo female with a PMH significant for DM II, C Diff currently on Vancomycin, CKD, Depression, PTSD who presents with weakness, falls, URI symptoms, Diabetic issues and positive Flu B. - Patient Problems (1) Falls frequently Current Visit: Yes Status: Acute Code(s): R29.6 - REPEATED FALLS SNOMED Code(s): 005611804 Comment: 7 falls in last 3 days per patient. Moderate pain in neck and shoulder. CT scan of head negative. Likely multifactorial from dehydration, Flu, diabetes. PT, will likely need more help at home due to non-compliance with medications. (2) Influenza B Current Visit: Yes Status: Acute Code(s): J10.1 - FLU DUE TO OTH IDENT INFLUENZA VIRUS W OTH RESP MANIFEST SNOMED Code(s): 47188273 Comment: Likely contributing to weakness and falls. No respiratory distress, Hypoxia, or hemodynamic instability. Start Tamiflu. Supportive care. (3) LANE (acute kidney injury) Current Visit: No Status: Acute Priority: Medium Code(s): N17.9 - ACUTE KIDNEY FAILURE, UNSPECIFIED SNOMED Code(s): 93458346 Comment: Cret increased to 2.58 from 2.36. Up from baseline of around 2. 2.5L given. MOre running now at 100ml/hr. Will monitor. Renally dose medications. Stop Eliquis. FeNa pending. (4) C. difficile colitis Current Visit: No Status: Acute Comment: One episode of soft stool, no abdominal pain. Currently being treated with vancomycin PO. Likely not a recurrence. Will complete course. Follow up with ID outpatient. Patient also tested positive for Klebsiella Oxytoca last admission. (5) History of pulmonary embolism Current Visit: No Status: Acute Code(s): Z86.711 - PERSONAL HISTORY OF PULMONARY EMBOLISM SNOMED Code(s): 432846505 Comment: Chronically anticoagulated with Eliquis (6) Depression Current Visit: No Status: Chronic Priority: Medium Code(s): F32.9 - MAJOR DEPRESSIVE DISORDER, SINGLE EPISODE, UNSPECIFIED SNOMED Code(s): 42113698 Comment: Stable Continue Effexor and Zoloft. (7) Diabetes Current Visit: No Status: Chronic Priority: High Code(s): E11.9 - TYPE 2 DIABETES MELLITUS WITHOUT COMPLICATIONS SNOMED Code(s): 27839319 Comment: BG improved. now in low 200s. Basal lantus with SSI. Will monitor and adjust as needed. (8) GERD (gastroesophageal reflux disease) Current Visit: No Status: Chronic Priority: Medium Code(s): K21.9 - GASTRO -ESOPHAGEAL REFLUX DISEASE WITHOUT ESOPHAGITIS SNOMED Code(s): 479622942 Comment: Continue omeprazole (9) HTN (hypertension) Current Visit: No Status: Chronic Priority: Medium Code(s): I10 - ESSENTIAL (PRIMARY) HYPERTENSION SNOMED Code(s): 71436547 Comment: Normotensive. Continue amlodipine and atenolol (10) Hypothyroidism Current Visit: No Status: Chronic Code(s): E03.9 - HYPOTHYROIDISM, UNSPECIFIED SNOMED Code(s): 81195878 Comment: Continue Levothyroxine. (11) DVT prophylaxis Current Visit: No Status: Acute Code(s): ERD4148 - SNOMED Code(s): 160745895 Comment: SCDs when Eliquis held. (12) Full code status Current Visit: No Status: Acute Code(s): Z78.9 - OTHER SPECIFIED HEALTH STATUS SNOMED Code(s): 829507035 Status and Disposition: Admitted OBV. Will discharge when able to talk care of self at home.
[2017-06-20] MEDS: Phenol 1.4% Spray* 177 ML BTL MT PRN (16:28)
[2017-06-20] MEDS: Benzocaine/Menthol LOZ* 1 LOZENGE MT PRN ×2 (16:31→22:21)
[2017-06-21] MEDS: Phenol 1.4% Spray* 177 ML BTL MT PRN ×3 (00:55→22:43)
[2017-06-21] MEDS: traMADol TAB* 50 MG PO PRN ×3 (03:02→18:29)
[2017-06-21] MEDS: Levothyroxine TAB* 100 MCG TAB PO SCH (05:21)
[2017-06-21] MEDS: Benzocaine/Menthol LOZ* 1 LOZENGE MT PRN ×3 (05:21→18:28)
[2017-06-21] MEDS: guaiFENesin/CODIEN 100MG-10MG* 5 ML UDC PO PRN ×3 (05:25→18:29)
[2017-06-21 06:24] LABS: ABS Basophils 0 10^3/ul (0-0.2); ABS Eosinophils 0.1 10^3/ul (0-0.6); ABS Lymphocytes 1.3 10^3/ul (1.0-4.8); ABS Monocytes 0.5 10^3/ul (0-0.8); ABS Nucleated RBC 0 10^3/ul; Eosinophil % 2.5 % (0-6); Hematocrit 27 % (35-47); Hemoglobin 8.8 g/dl (12.0-16.0); Lymphocyte % 21.8 % (25-47); Mean Corpuscular HGB Conc 33 g/dl (31-36); Mean Corpuscular Hemoglobin 28 pg (27-31); Mean Corpuscular Volume 83 fL (80-97); Mean Platelet Volume 8 um3 (7.4-10.4); Nucleated Red Blood Cells % 0; Platelet Count 201 10^3/ul (150-450); Red Blood Count 3.21 10^6/ul (4.0-5.4); Red Cell Distribution Width 15 % (10.5-15); White Blood Count 5.9 10^3/ul (3.5-10.8)
[2017-06-21 06:36] LABS: EGFR Non-African American 22.5 (>60)
[2017-06-21] MEDS: Atenolol TAB* 50 MG PO SCH (09:50)
[2017-06-21] MEDS: Venlafaxine EXT RELEASE CAP* 75 MG PO SCH (09:50)
[2017-06-21] MEDS: Sertraline* 50 MG TAB PO SCH (09:51)
[2017-06-21] MEDS: Vancomycin CAP* 125 MG CAP PO SCH (09:51)
[2017-06-21] MEDS: Calcium/Vitamin D TAB 250/125* TAB PO SCH (09:51)
[2017-06-21] MEDS: Ascorbic Acid TAB* 500 MG PO SCH (09:52)
[2017-06-21] MEDS: Omeprazole CAP* 20 MG PO SCH (09:53)
[2017-06-21] MEDS: amLODIPine TAB* 5 MG PO SCH (09:53)
[2017-06-21] MEDS: Atorvastatin* 40 MG TAB PO SCH (09:54)
[2017-06-21] MEDS: Acetaminophen TAB* 325 MG PO PRN ×3 (09:54→22:41)
[2017-06-21] MEDS: Oseltamivir CAP* 30 MG CAP PO SCH (09:54)
--- NOTE | 2017-06-21 09:55 | PN ---
Subjective Date of Service: 06/21/17 Interval History: Patient seen and examined at bedside. She reports feeling better but still reports hacking cough and sore throat. She states she feels dizzy and weak and wants to lay down more. We discussed the importance of sitting in the chair and ambulating when possible. Denies fever/chills, CP, abd pain, n/v. Denies SOB except with exertion. Family History: Unchanged from Admission Social History: Unchanged from Admission Past Medical History: Unchanged from Admission Objective Active Medications: Acetaminophen (Tylenol Tab*) 650 mg PO Q4H PRN PRN Reason: FEVER/PAIN Last Admin: 06/21/17 09:54 Dose: 650 mg Amlodipine Besylate (Norvasc Tab*) 10 mg PO DAILY [facility] Last Admin: 06/21/17 09:53 Dose: 10 mg Ascorbic Acid (Vitamin C Tab*) 500 mg PO DAILY [facility] Last Admin: 06/21/17 09:52 Dose: 500 mg Atenolol (Tenormin Tab*) 100 mg PO DAILY [facility] Last Admin: 06/21/17 09:50 Dose: 100 mg Atorvastatin Calcium (Lipitor*) 40 mg PO DAILY [facility] Last Admin: 06/21/17 09:54 Dose: 40 mg Calcium/Vitamin D (Oscal D Tab 250/125*) 1 tab PO DAILY [facility] Last Admin: 06/21/17 09:51 Dose: 1 tab Dextrose (D50w Syringe 50 Ml*) 12.5 gm IV PUSH .FOR FS < 60 - SS PRN PRN Reason: FS < 60 Fluticasone Propionate (Flonase Nasal Bud 50mcg*) 2 spray BOTH NARES DAILY [facility] Last Admin: 06/20/17 08:11 Dose: 2 spray Guaifenesin (Robitussin*) 5 ml PO Q4H PRN PRN Reason: COUGH Last Admin: 06/20/17 08:16 Dose: 5 ml Guaifenesin/Codeine Phosphate (Robitussin Ac 100mg-10mg*) 5 ml PO Q6H PRN PRN Reason: COUGH Last Admin: 06/21/17 05:25 Dose: 5 ml Insulin Glargine (Lantus(*)) 45 units SUBCUT Q24H [facility] Stop: 06/21/17 13:00 Last Admin: 06/20/17 13:33 Dose: 45 units Insulin Glargine (Lantus(*)) 55 units SUBCUT Q24H [facility] Insulin Human Lispro (Humalog*) 0 units SUBCUT ACHS [facility] PRN Reason: Protocol Last Admin: 06/20/17 20:53 Dose: 6 units Levothyroxine Sodium (Synthroid Tab*) 200 mcg PO 0600 [facility] Last Admin: 06/21/17 05:21 Dose: 200 mcg Omeprazole (Prilosec Cap*) 20 mg PO DAILY [facility] Last Admin: 06/21/17 09:53 Dose: 20 mg Ondansetron HCl (Zofran Inj*) 4 mg IV Q4H PRN PRN Reason: NAUSEA/VOMITING Oseltamivir Phosphate (Tamiflu Cap*) 30 mg PO DAILY [facility] Stop: 06/23/17 09:01 Last Admin: 06/21/17 09:54 Dose: 30 mg Phenol/Menthol (Chloroseptic Throat Bud*) 1 spray MT TID PRN PRN Reason: SORE THROAT Last Admin: 06/21/17 00:55 Dose: 1 spray Sertraline HCl (Zoloft*) 50 mg PO DAILY [facility] Last Admin: 06/21/17 09:51 Dose: 50 mg Throat Lozenges (Chloraseptic Vinh*) 1 vinh MT Q6H PRN PRN Reason: SORE THROAT Last Admin: 06/21/17 05:21 Dose: 1 vinh Tramadol HCl (Ultram*) 50 mg PO Q6H PRN PRN Reason: PAIN Last Admin: 06/21/17 09:54 Dose: 50 mg Vancomycin HCl (Vancomycin Cap*) 125 mg PO DAILY [facility] Last Admin: 06/21/17 09:51 Dose: 125 mg Venlafaxine HCl (Effexor Xr Cap*) 150 mg PO DAILY [facility] Last Admin: 06/21/17 09:50 Dose: 150 mg Vital Signs - 8 hr 06/21/17 06/21/17 06/21/17 03:02 04:03 05:22 Temperature 98.7 F Pulse Rate 79 Respiratory 19 18 19 Rate Blood Pressure 137/63 (mmHg) O2 Sat by Pulse 93 Oximetry 06/21/17 06/21/17 06/21/17 08:00 08:02 09:54 Temperature 98.5 F Pulse Rate 81 Respiratory 16 16 20 Rate Blood Pressure 161/67 (mmHg) O2 Sat by Pulse 97 97 Oximetry Oxygen Devices in Use Now: None Appearance: Older female, mildly disheveled, OOB to chair, NAD Eyes: No Scleral Icterus, PERRLA Ears/Nose/Mouth/Throat: Clear Oropharnyx, Mucous Membranes Moist Neck: NL Appearance and Movements; NL JVP Respiratory: Symmetrical Chest Expansion and Respiratory Effort, Clear to Auscultation Cardiovascular: NL Sounds; No Murmurs; No JVD, RRR Abdominal: NL Sounds; No Tenderness; No Distention Extremities: No Edema, No Clubbing, Cyanosis Skin: No Rash or Ulcers Neurological: Alert and Oriented x 3, NL Muscle Strength and Tone Lines/Tubes/Other Access: Clean, Dry and Intact Peripheral IV Nutrition: Taking PO's Result Diagrams: 06/21/17 06:00 06/21/17 06:00 Additional Lab and Data: Lab Results Microbiology and Other Data: Microbiology 06/19/17 15:05 Influenza Types A,B Antigen (ANGELA) - Final Nasal Specimen received for Influenza A/B Molecular testing Assess/Plan/Problems-Billing Assessment: Patient is a 71yo female with a PMH significant for DM II, C Diff currently on Vancomycin, CKD, Depression, PTSD who presents with weakness, falls, URI symptoms, Diabetic issues and positive Flu B. - Patient Problems (1) Influenza B Code(s): J10.1 - FLU DUE TO OTH IDENT INFLUENZA VIRUS W OTH RESP MANIFEST Comment: Likely contributing to weakness and falls. No respiratory distress, hypoxia, or hemodynamic instability. Continue Tamiflu. Supportive care. (2) LANE (acute kidney injury) Code(s): N17.9 - ACUTE KIDNEY FAILURE, UNSPECIFIED Comment: Improving Acute on chronic kidney injury Avoid nephrotoxic medications Continue to follow BMP (3) Falls frequently Code(s): R29.6 - REPEATED FALLS Comment: 7 falls in last 3 days per patient. Moderate pain in neck and shoulder. CT scan of head negative. Likely multifactorial from dehydration, flu, diabetes. PT, will likely need more help at home due to non-compliance with medications. (4) C. difficile colitis Comment: Having formed stools, no abdominal pain. Currently being treated with vancomycin PO. Likely not a recurrence. Will complete course. Follow up with ID outpatient. Patient also tested positive for Klebsiella Oxytoca last admission. (5) History of pulmonary embolism Code(s): Z86.711 - PERSONAL HISTORY OF PULMONARY EMBOLISM Comment: Chronically anticoagulated with Eliquis, which is currently on hold due to renal status (6) Depression Code(s): F32.9 - MAJOR DEPRESSIVE DISORDER, SINGLE EPISODE, UNSPECIFIED Comment: Stable Continue Effexor and Zoloft. (7) Diabetes Code(s): E11.9 - TYPE 2 DIABETES MELLITUS WITHOUT COMPLICATIONS Comment: BG improved. Continue basal lantus with SSI. Will monitor and adjust as needed. (8) GERD (gastroesophageal reflux disease) Code(s): K21.9 - GASTRO-ESOPHAGEAL REFLUX DISEASE WITHOUT ESOPHAGITIS Comment : Continue omeprazole (9) HTN (hypertension) Code(s): I10 - ESSENTIAL (PRIMARY) HYPERTENSION Comment: Normotensive. Continue amlodipine and atenolol (10) Hypothyroidism Code(s): E03.9 - HYPOTHYROIDISM, UNSPECIFIED Comment: Continue Levothyroxine. (11) DVT prophylaxis Comment: SCDs when Eliquis held. (12) Full code status Code(s): Z78.9 - OTHER SPECIFIED HEALTH STATUS Status and Disposition: OBV to inpatient.
[2017-06-21] MEDS: Insulin LISPRO* 1 UNITS UNIT SUBCUT SCH ×4 (09:56→21:50)
[2017-06-21] MEDS: Fluticasone NASAL SPRAY 50MCG* 16 gm SPRAY BTL BOTH NARES SCH (09:56)
[2017-06-21] MEDS: Insulin GLARGINE(*) 1 UNITS UNIT SUBCUT SCH ×2 (12:26→13:36)
[2017-06-22] MEDS: traMADol TAB* 50 MG PO PRN ×3 (00:35→14:22)
[2017-06-22] MEDS: guaiFENesin/CODIEN 100MG-10MG* 5 ML UDC PO PRN ×2 (00:38→14:22)
[2017-06-22] MEDS: Benzocaine/Menthol LOZ* 1 LOZENGE MT PRN ×3 (00:40→14:21)
[2017-06-22 05:35] LABS: Hematocrit 26 % (35-47); Hemoglobin 8.6 g/dl (12.0-16.0); Mean Corpuscular HGB Conc 34 g/dl (31-36); Mean Corpuscular Hemoglobin 28 pg (27-31); Mean Corpuscular Volume 84 fL (80-97); Mean Platelet Volume 8 um3 (7.4-10.4); Platelet Count 187 10^3/ul (150-450); Red Blood Count 3.06 10^6/ul (4.0-5.4); Red Cell Distribution Width 15 % (10.5-15); White Blood Count 6.4 10^3/ul (3.5-10.8)
[2017-06-22 05:52] LABS: EGFR Non-African American 26.9 (>60)
[2017-06-22 06:01] LABS: ABS Basophils 0 10^3/ul (0-0.2); ABS Eosinophils 0.1 10^3/ul (0-0.6); ABS Lymphocytes 1.1 10^3/ul (1.0-4.8); ABS Monocytes 0.4 10^3/ul (0-0.8); ABS Neutrophils 4.8 10^3/ul (1.5-7.7); ABS Nucleated RBC 0 10^3/ul; Eosinophil % 1.6 % (0-6); Lymphocyte % 17.2 % (25-47); Nucleated Red Blood Cells % 0
[2017-06-22] MEDS: Acetaminophen TAB* 325 MG PO PRN ×2 (06:27→14:22)
[2017-06-22] MEDS: Levothyroxine TAB* 100 MCG TAB PO SCH (06:28)
[2017-06-22] MEDS: guaiFENesin LIQ* 100 MG/5 ML UDC PO PRN (06:31)
[2017-06-22] MEDS: Fluticasone NASAL SPRAY 50MCG* 16 gm SPRAY BTL BOTH NARES SCH (07:32)
[2017-06-22] MEDS: Sertraline* 50 MG TAB PO SCH (07:32)
[2017-06-22] MEDS: Ascorbic Acid TAB* 500 MG PO SCH (07:33)
[2017-06-22] MEDS: Calcium/Vitamin D TAB 250/125* TAB PO SCH (07:33)
[2017-06-22] MEDS: Venlafaxine EXT RELEASE CAP* 75 MG PO SCH (07:33)
[2017-06-22] MEDS: Vancomycin CAP* 125 MG CAP PO SCH (07:34)
[2017-06-22] MEDS: Omeprazole CAP* 20 MG PO SCH (07:34)
[2017-06-22] MEDS: Atorvastatin* 40 MG TAB PO SCH (07:34)
[2017-06-22] MEDS: Oseltamivir CAP* 30 MG CAP PO SCH (07:35)
[2017-06-22] MEDS: amLODIPine TAB* 5 MG PO SCH (07:41)
[2017-06-22] MEDS: Insulin LISPRO* 1 UNITS UNIT SUBCUT SCH ×2 (07:41→14:21)
[2017-06-22] MEDS: Atenolol TAB* 50 MG PO SCH (07:41)
--- NOTE | 2017-06-22 12:25 | DS ---
CC: Dr. Zurita; Raquel Israel* DATE OF ADMISSION: 06/19/2017. DATE OF DISCHARGE: 06/22/2017. PROVIDER: Deejay Walker NP. ATTENDING PHYSICIAN: Dr. Ana Maria Butcher* (as dictated by Deejay Walker NP). PRIMARY CARE PHYSICIAN: Dr. Zakia Zurita PRIMARY DISCHARGE DIAGNOSES: 1. Influenza B. 2. Acute kidney injury secondary to dehydration and poor p.o. intake. 3. Weakness secondary to deconditioning and recent influenza. 4. C. difficile colitis, currently being treated. SECONDARY DISCHARGE DIAGNOSES: 1. History of PE approximately two years ago. 2. Insulin dependent type 2 diabetes. 3. Stage 3 kidney disease. 4. Hypertension. 5. Depression. 6. PTSD. 7. Recurrent gastroenteritis. 8. GERD. 9. Chronic pain. 10. Diabetic retinopathy. MEDICATIONS AT DISCHARGE: 1. Multivitamin, PreserVision AREDS one capsule daily. 2. Atenolol 100 mg daily. 3. Sertraline 50 mg daily. 4. Humulin 70/30 25 units subcu b.i.d. 5. Flonase nasal spray two sprays to both nares daily. 6. Atorvastatin 40 mg daily. 7. Probiotic one capsule daily. 8. Omeprazole 20 mg daily. 9. Hyzaar 100/25 one tab daily. 10. Amlodipine 10 mg daily. 11. Potassium Chloride 10 mEq daily. 12. Venlafaxine ER 150 mg daily. 13. Vancomycin 125 mg with tapering dose, the patient is on 125 mg daily and should remain on this dose for two weeks. 14. Calcium Carbonate with vitamin D one tab daily. 15. Folic Acid 500 mg daily. 16. Levothyroxine 200 mcg q.a.m. 17. Apixaban 5 mg b.i.d. 18. Ondansetron 4 mg q.8 hours prn. 19. Tramadol 50 mg q.6 hours prn, maximum daily dose 4. 20. Robitussin AC 100 mg-10 mg, 5 ml q.6 hours prn, maximum daily dose 20. 21. Guaifenesin 5 ml q.4 hours prn. 22. Phenol 1.4% spray one spray to throat t.i.d. prn. 23. Tamiflu 30 mg daily, first dose was received on 06/19/2017 and she is due for one more dose. 24. Chloraseptic lozenges one lozenge q.6 hours prn. 25. Tylenol 650 mg q.4 hours prn. HOSPITAL COURSE OF STAY: For full details, please refer to the history and physical provided by Dr. Conklin on admission. In summary, Ms. Montemayor is a 71- year- old female with a past medical history as previously stated who presented to the hospital with concern for weakness and recurrent falls. She reports that she had run out of her medication, including her insulin, and had increasing weakness with cramping all over and three falls prior to be admitting to the hospital. She reported subjective fevers, cough and sore throat, and was found to have a positive influenza B swab. She was started on Tamiflu. She was given supportive care which included IV fluids and symptomatic treatment of her sore throat and cough. She has reported improvement. She also has concern for acute kidney injury with her baseline creatinine typically running between 1.5 and 1.9. On admission, she is at 2.36 , but has since resolved down to 1.84. She initially had her Hyzaar held, but has improved kidney function and her blood pressures have normalized and are slightly hypertensive which resulted in restarting her Hyzaar. She is in agreement currently with subacute rehab as she has had recurrent falls and feels that she is too weak to return home safely at this point in time. Her symptoms have been managed with her current medication regimen and there are no other acute concerns expressed. PHYSICAL EXAMINATION: Vitals signs at discharge: Temperature 98.0, pulse rate 79, respiratory rate 16, blood pressure 151/68, O2 saturation is 93 percent on room air. HEENT: Head is atraumatic, normocephalic. Face is symmetrical. Pupils are equal, round and reactive to light. Oral mucosa is moist. Neck is supple. No lymphadenopathy appreciated. Cardiac: S1, S2 heart sounds. Regular rate and rhythm. No murmurs, rubs or gallops appreciated. Lungs: Clear to auscultation. Abdomen: Soft, nontender, nondistended. Bowel sounds are normoactive. Extremities: No clubbing or cyanosis, no edema noted. Neuro : She is alert and oriented times three. Strength is 4 and 5 throughout. OUTPATIENT FOLLOW-UP NEEDS: Ms. Montemayor would likely benefit from a follow-up BMP to ensure that her kidney function remains stable, especially with her receiving Hydrochlorothiazide and her having decreased p.o. intake. As she is currently having formed stools after being treated for her C. difficile colitis , she has while taking medications at home, but appears to be doing well on her daily dose of Vancomycin and should be tapered off of this shortly. DIET: Consistent carbohydrate diet. ACTIVITY: As tolerated. CONDITION: Improved, stable. DISPOSITION: To [facility]. TIME SPENT: Time spent on this discharge was approximately 40 minutes. Again, this is only a brief summary of the patient's hospital course of stay. For full details, please refer to the full medical record. If you have any further questions or need further assistance, please feel free to contact me at . DEEJAY WALKER NP [id number]/[phone]/HERMAN #: [id number] AZAEL
[2017-06-22 12:26] VITALS: BP 127/62
[2017-06-22] MEDS: Insulin GLARGINE(*) 1 UNITS UNIT SUBCUT SCH (14:21)
[2017-06-22] MEDS: Phenol 1.4% Spray* 177 ML BTL MT PRN (14:22)
== END 2017-06-22 14:30 | DRG 194 ==
LOC: ED 03:00 → MEDTELE 05:41 → OBSVTOIN 06-20 07:37
PROVIDERS: ADMIT Internal Medicine; ATTEND Internal Medicine
PROC: 05HQ33Z Insertion of Infusion Device into Left External Jugular Vein, Percutaneous Approach (ICD-10-PCS; principal; 2017-06-20)
DX: J10.1 Influenza due to other identified influenza virus with other respiratory manifestations (principal); N17.9 Acute kidney failure, unspecified; A04.71 Enterocolitis due to Clostridium difficile, recurrent; E11.22 Type 2 diabetes mellitus with diabetic chronic kidney disease; E11.319 Type 2 diabetes mellitus with unspecified diabetic retinopathy without macular edema; E11.65 Type 2 diabetes mellitus with hyperglycemia; N18.3 Chronic kidney disease, stage 3 (moderate); E03.9 Hypothyroidism, unspecified; I12.9 Hypertensive chronic kidney disease with stage 1 through stage 4 chronic kidney disease, or unspecified chronic kidney disease; J45.909 Unspecified asthma, uncomplicated; K21.9 Gastro-esophageal reflux disease without esophagitis; K58.9 Irritable bowel syndrome, unspecified; M19.90 Unspecified osteoarthritis, unspecified site; F43.10 Post-traumatic stress disorder, unspecified; F41.0 Panic disorder [episodic paroxysmal anxiety]; F12.90 Cannabis use, unspecified, uncomplicated; E86.0 Dehydration; G89.29 Other chronic pain; F32.9 Major depressive disorder, single episode, unspecified; Z91.410 Personal history of adult physical and sexual abuse; Z90.49 Acquired absence of other specified parts of digestive tract; Z82.3 Family history of stroke; Z88.6 Allergy status to analgesic agent; Z88.8 Allergy status to other drugs, medicaments and biological substances; Z86.718 Personal history of other venous thrombosis and embolism; Z86.711 Personal history of pulmonary embolism; Z80.3 Family history of malignant neoplasm of breast; Z99.81 Dependence on supplemental oxygen; Z82.5 Family history of asthma and other chronic lower respiratory diseases; Z82.49 Family history of ischemic heart disease and other diseases of the circulatory system; Z87.891 Personal history of nicotine dependence; Z91.14 Patient's other noncompliance with medication regimen; Z79.4 Long term (current) use of insulin; Z79.01 Long term (current) use of anticoagulants; Z91.81 History of falling
CPT/HCPCS: 36415; 70450; 71045; 80048; 80053; 81003; 81015; 82570; 83036; 83605; 83735; 83935; 84443; 84484; 85025; 85610; 85730; 86850; 86900; 86901; 87040; 87086; 87502; 87641; 93005; 99285; A9270-GY; G0378; J3475

== ENCOUNTER 2017-12-26 17:05 | Inpatient (IN) | payer MEDICARE ==
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
--- NOTE | 2017-12-26 17:48 | RAD ---
Indication: Altered mental status. Diabetic. History of asthma. History of RIGHT breast cancer with lumpectomy. Comparison: June 19, 2017 Technique: Upright AP 1728 hours Report: Elevated lung volumes. No pulmonary infiltrate, focal pulmonary lesion, pleural effusion, or pneumothorax. The heart, pulmonary vasculature, and mediastinal contours are unremarkable. IMPRESSION: #. Stigmata of obstructive lung disease. No acute pulmonary or cardiac process evident.
[2017-12-26 18:18] LABS: ABS Basophils 0.1 10^3/ul (0-0.2); ABS Eosinophils 0.2 10^3/ul (0-0.6); ABS Lymphocytes 1.8 10^3/ul (1.0-4.8); ABS Monocytes 0.5 10^3/ul (0-0.8); ABS Neutrophils 6.6 10^3/ul (1.5-7.7); ABS Nucleated RBC 0 10^3/ul; Eosinophil % 1.9 % (0-6); Hematocrit 30 % (35-47); Hemoglobin 9.9 g/dl (12.0-16.0); Lymphocyte % 19.4 % (25-47); Mean Corpuscular HGB Conc 33 g/dl (31-36); Mean Corpuscular Hemoglobin 29 pg (27-31); Mean Corpuscular Volume 87 fL (80-97); Mean Platelet Volume 7.7 um3 (7.4-10.4); Nucleated Red Blood Cells % 0.1; Platelet Count 340 10^3/ul (150-450); Red Blood Count 3.44 10^6/ul (4.00-5.40); Red Cell Distribution Width 15 % (10.5-15); White Blood Count 9.1 10^3/ul (3.5-10.8)
[2017-12-26 18:25] LABS: INR 0.85 (0.77-1.02)
--- NOTE | 2017-12-26 18:42 | RAD ---
Indication: Altered mental status. History of RIGHT breast cancer. Comparison: June 19, 2017 CT. Technique: Noncontrast CT vertex of skull through foramen magnum. Report: Moderately severe prominence of the cerebral sulci and cerebellar fissures as well as proportional enlargement of the ventricles reflecting involutional change. Patent basal cisterns. Decreased density in the periventricular and subcortical white matter while non-specific is most likely due to chronic microangiopathy. Negative for kent matter white matter obscuration, intra or extra-axial hemorrhage, or mass effect. No suspicious abnormality of the visualized orbital contents. Negative for calvarial or skull base fracture or suspicious focal osseous lesions. Clear partially visualized paranasal sinuses and mastoid air spaces. Negative for scalp hematoma. IMPRESSION: #. No CT evidence for traumatic brain injury or acute intracranial process. #. Involutional change and stigmata of chronic small vessel ischemic disease
[2017-12-26 18:46] LABS: EGFR Non-African American 23.4 (>60)
[2017-12-26] MEDS ORDERED: Insulin REGULAR(*) 1 UNITS UNIT SUBCUT ONE (18:50)
[2017-12-26] MEDS ORDERED: NS 0.9% 1000 ML*IV.FLUID IV ONE (19:01)
[2017-12-26 19:31] LABS: Urine Appearance Cloudy; Urine Blood Negative (Negative); Urine Color Yellow; Urine Ketones Negative (Negative); Urine Protein 2+(100 mg/dL) (Negative); Urine Red Blood Cell 2+(6-10/hpf) (Absent); Urine Specific Gravity 1.021 (1.010-1.030); Urine Urobilinogen Negative (Negative); Urine White Blood Cell 3+(>20/hpf) (Absent)
[2017-12-26] MEDS ORDERED: cefTRIAXone(*) 1 GM in NS 0.9% 50 ML* 50 ML IVPB ONE (19:38)
[2017-12-26] MEDS: NS 0.9% 1000 ML* 2,000 ML IV ONE ×2 (19:52→19:53)
[2017-12-26] MEDS ORDERED: Dextrose 50% Syringe 50 ML* 25 GM/50 ML SYRINGE IV PUSH PRN (20:24)
[2017-12-26] MEDS ORDERED: hydrALAZINE IV* 20 MG/ML VIAL IV SLOW PU PRN (20:54)
[2017-12-26] MEDS ORDERED: Insulin GLARGINE(*) 1 UNITS UNIT SUBCUT SCH (21:00)
--- NOTE | 2017-12-26 21:35 | HP ---
HISTORY AND PHYSICAL: ADDENDUM: Please note that in discussion with the patient's code status further when I went to bring in the [facility] to fill it out with her, she changed her mind and would like to be a full code. I have updated the order and clearly the patient is now a full code. MU WHITMORE, TRACK AND FIELD COACH [id number]/[facility] #: [id number] AZAEL
[2017-12-26] MEDS ORDERED: Heparin VIAL(*) 5000 UNITS/ML VIAL (FIVE THOUSAND) SUBCUT SCH (22:00)
[2017-12-26] MEDS ORDERED: Enoxaparin(*) 30 MG/0.3 ML SYR SUBCUT SCH (22:00)
[2017-12-26] MEDS ORDERED: Insulin LISPRO* 1 UNITS UNIT SUBCUT SCH (22:00)
--- NOTE | 2017-12-26 23:07 | HP ---
ADDENDUM NOW INCLUDED ON THIS REPORT CC: Dr. Zurita * HISTORY AND PHYSICAL: DATE OF ADMISSION: 12/26/17 PRIMARY CARE PROVIDER: Dr. Zurita. ATTENDING PHYSICIAN WHILE IN THE HOSPITAL: Nixon Preciado MD * (report dictated by Nathen Lou NP). CHIEF COMPLAINT: Hyperglycemia. HISTORY OF PRESENT ILLNESS: Ms. Montemayor is a 72-year-old female patient. She carries a history of PE. She said she has not been on Eliquis for 2 months now. She has a history of diabetes, CKD stage III, hypertension, PTSD, depression, gastroenteritis, GERD, chronic pain, retinopathy, and history of C. diff. She is coming into the ED today. She is saying that since she could not get her insulin because she was having a hard time making a phone call. She found out that her phone was broken. [employer] came in today and she was able to have the meals and a we have a person essentially to get her help. The [employer] people apparently have a tree fruit and nut farming supervisor or a inside sales lead who came and evaluated her and they called 911 because she had said that she had not taken her insulin in 5 days. She had been eating and drinking. She had polydipsia, polyphagia. They checked her blood sugar, it was out of range. They sent her to the hospital. Patient denies having any fevers. She denied having any chest pain or shortness of breath. She says that she has not had any episodes of fainting or passing out. She denied any vomiting or any diarrhea. She said she has had C. diff in the past. She also states that she did have a blood clot in the past and that she has been off Eliquis now for a couple of months. I would like to verify this with her PCP tomorrow if possible. She says that she was eating the [employer] meal that had been given to her throughout the weekend. She really was unable to get any help, get her insulin back because she was unable to touch base with the drug store. She came into the ED today, was noted that her blood sugar was 627. She appeared to be dehydrated. Her troponin was mildly elevated, so because of these findings, we were asked to evaluate for admission. PAST MEDICAL HISTORY: Significant for: 1. PE. 2. Diabetes. 3. CKD, stage III. 4. Hypertension. 5. PTSD. 6. Depression. 7. Gastroenteritis. 8. GERD. 9. Chronic pain. 10. Retinopathy. 11. History of C. diff. PAST SURGICAL HISTORY: 1. She has had a laparoscopic cholecystectomy. 2. Appendectomy. 3. Tonsillectomy. 4. She has had an anal fissure repair. HOME MEDICATIONS: I would like to clarify this with Dr. Zurita's office because it appears that her list had Eliquis found there, but she is saying she is not taking it anymore. In addition to this, she also listed that she is on Effexor and Zoloft and I would like to clarify that she is in fact taking both those medications or just one or the other. The list that I have access to includes: 1. Effexor 150 mg p.o. daily. 2. Simethicone 125 mg p.o. a.c. as needed. 3. Zoloft 50 mg p.o. daily. 4. Potassium 10 mEq p.o. daily. 5. Omeprazole 20 mg p.o. daily. 6. Losartan/hydrochlorothiazide 1 tablet daily. 7. Insulin lispro 75/25 one injection subcu daily. 8. Synthroid 200 mcg daily. 9. Hydrochlorothiazide 25 mg daily. 10. Insulin 70/30, 25 units subcu b.i.d. 11. Lipitor 40 mg daily. 12. Atenolol 100 mg daily. 13. Norvasc 10 mg a day. 14. Lactobacillus 1 tablet p.o. daily. ALLERGIES TO MEDICATION: Include HEPARIN, METFORMIN, HYDROCODONE. FAMILY HISTORY: Both her parents had COPD. SOCIAL HISTORY: She is a former smoker. She quit in . She does not drink alcohol. She does not appoint a surrogate decision maker at this point. REVIEW OF SYSTEMS: There is no documented fever. She denies having any significant weight change. She denies having any double vision. There was no ear discharge. There is no rhinorrhea, no sore throat. No thyroid enlargement. She denies having any chest pain. There is no orthopnea. There is no nocturnal dyspnea. There was no abdominal pain. No nausea, no vomiting. No dysuria. No frequency. There was no seizure. No loss of conscious, no pruritus, and no skin ulcerations. Review of 14 systems completed, all others negative. PHYSICAL EXAMINATION GENERAL: At this time, Ms. Montemayor is a 72-year-old female patient. She is sitting in the ED stretcher. She does not appear to be in any acute distress. VITAL SIGNS: Blood pressure 191/101 with a pulse of 101, respirations 12, O2 saturation 98%, temperature was 98.1. HEENT: Head: Atraumatic and normocephalic. Eyes: EOMs are intact. Sclerae anicteric and not pale. Throat: Oral mucosa appears to be moist. No oropharyngeal erythema. NECK: Supple. LUNGS: Clear to auscultation bilaterally. There was no wheezes, rales, or rhonchi. HEART: Sounds S1, S2. She had a regular rate and rhythm. There is no murmurs , rubs, or gallops. ABDOMEN: Soft. It was flat. It was nontender. Bowel sounds were present. EXTREMITIES: Pulses were 2+ throughout. She is able to move all 4 extremities with 5/5 strength. NEUROLOGIC: The patient is awake. She is alert. She is oriented x3. Her tongue is midline. Construction Trades Contractor were equal. She had no gross focal deficits. SKIN: Intact. LABORATORY DATA: Labs today revealing WBC of 9.1, RBC of 3.44, hemoglobin of 9.9, hematocrit 30, platelet count of 340. INR was 0.85, PTT of 24.6. Sodium was 132, potassium was 4.3, chloride of 97, bicarb 24, BUN was 37. Her creatinine was 2.07. I think her baseline creatinine is 1.7. Glucose was 627, after treatment in the ED is now 528. Lactate 3.1, calcium 8.8, total bili 0.3 , AST 9, ALT 10, alk phos 145. Troponin was 0.04. Albumin of 3.2. She had a urine, which showed positive nitrite, 2+ leukocyte esterase, 2+ WBC. She had a brain CT obtained today, which showed no CT evidence of traumatic brain injury or acute intracranial process, involutional changes, stigmata of chronic small vessel ischemic changes. Chest x-ray showed stigmata of obstructive lung disease. No acute pulmonary or cardiac process noted. EKG does show sinus tachycardia with a rate of [address] elevation was noted. She had flattened T-wave in V6 and lead I that is similar to her previous EKGs. No acute changes were noted. Old medical records were reviewed. ASSESSMENT AND PLAN: Ms. Montemayor is a 72-year-old female patient coming into the emergency department today with complaints of an elevated blood sugar. In evaluation today found to have blood sugar of 697. She will be admitted under observation status for: 1. Hyperglycemic nonketotic state. At this point, she is being hydrated. Her blood sugar is slowly coming down with subcu insulin. So I am going to get her on subcu insulin lispro every 4 hours. I will put her on a consistent carb diet. We have a reason as to why this happened, you know she stopped taking her meds because she was unable to get them. I placed a social work consult to help her with this. I will go ahead and give her some Lantus 2 tonight 10 units. I am going to clarify her med list tomorrow with her PCP. I think that is important. We will hydrate her and we will continue to follow. 2. History of pulmonary embolism. I will put her on heparin subcu, but I would like to clarify again with PCP tomorrow to make sure she is certainly not on the Eliquis anymore. We will need to touch base with them tomorrow. 3. Chronic kidney disease, stage III. She has a low troponin of acute kidney injury. We will hydrate her. I will send of a FENa. I suspect this is probably secondary to some dehydration and will continue to follow. 4. Hypertension. We will continue meds as prescribed. She is not well controlled. Blood pressure done here was 190. I have ordered some p.r.n. hydralazine. 5. Posttraumatic stress disorder and depression. Continue meds as prescribed. 6. History of C. diff and gastroenteritis. She is not having any active symptoms at this point. We will monitor. 7. Gastroesophageal reflux disease. Continue her meds as prescribed. 8. Hyperlipidemia. Continue statin therapy. 9. History of chronic pain. I have ordered p.r.n. Tylenol. 10. Code status. She wished to be a DNR. She has a MOLST in the computer. It is listed as CPR. We will need to update this. 11. Fluid, electrolyte, nutrition. She can have a consistent carb diet. TIME SPENT: Time spent on admission was 60 minutes, greater than half the time was spent [id number] with the patient obtaining my history and physical, other half of the time was spent going over the plan of care with the patient and implementing the plan of care. I did discuss the plan of care with my attending, Dr. Preciado, he is in agreement. NATHEN LOU NP ADDENDUM: Please note that in discussion with the patient's code status further when I went to bring in the MOLST to fill it out with her, she changed her mind and would like to be a full code. I have updated the order and clearly the patient is now a full code. NATHEN LOU NP [id number]/CPS #: [id number]/CPS #: [id number] AZAEL
[2017-12-26] MEDS: Enoxaparin(*) 30 MG/0.3 ML SYR SUBCUT SCH (23:43)
[2017-12-26] MEDS: NS 0.9% 1000 ML* 1,000 ML IV SCH (23:50)
[2017-12-27] MEDS: Aspirin EC TAB* 81 MG TAB.EC PO SCH ×2 (00:41→07:41)
[2017-12-27] MEDS: Insulin LISPRO* 1 UNITS UNIT SUBCUT SCH ×6 (00:49→20:36)
[2017-12-27] MEDS: Melatonin 3 MG TAB PO PRN (03:09)
[2017-12-27 05:17] LABS: ABS Basophils 0.1 10^3/ul (0-0.2); ABS Eosinophils 0.3 10^3/ul (0-0.6); ABS Lymphocytes 2.1 10^3/ul (1.0-4.8); ABS Monocytes 0.4 10^3/ul (0-0.8); ABS Neutrophils 4.7 10^3/ul (1.5-7.7); ABS Nucleated RBC 0 10^3/ul; Eosinophil % 3.5 % (0-6); Hematocrit 28 % (35-47); Hemoglobin 9.3 g/dl (12.0-16.0); Lymphocyte % 28.1 % (25-47); Mean Corpuscular HGB Conc 33 g/dl (31-36); Mean Corpuscular Hemoglobin 29 pg (27-31); Mean Corpuscular Volume 87 fL (80-97); Mean Platelet Volume 7.5 um3 (7.4-10.4); Nucleated Red Blood Cells % 0; Platelet Count 299 10^3/ul (150-450); Red Blood Count 3.23 10^6/ul (4.00-5.40); Red Cell Distribution Width 15 % (10.5-15); White Blood Count 7.6 10^3/ul (3.5-10.8)
[2017-12-27 05:22] LABS: INR 0.82 (0.77-1.02)
[2017-12-27] MEDS: Atenolol TAB* 50 MG PO SCH (07:40)
[2017-12-27] MEDS: Atorvastatin* 40 MG TAB PO SCH (07:40)
[2017-12-27] MEDS: Levothyroxine TAB* 100 MCG TAB PO SCH (07:40)
[2017-12-27] MEDS: Acetaminophen TAB* 325 MG PO PRN (07:40)
[2017-12-27] MEDS: amLODIPine TAB* 5 MG PO SCH (07:41)
[2017-12-27] MEDS: Omeprazole CAP* 20 MG PO SCH (07:41)
[2017-12-27] MEDS: NS 0.9% 1000 ML* 1,000 ML IV SCH ×3 (08:53→23:01)
--- NOTE | 2017-12-27 14:42 | ECHO ---
Patient: NEREIDA HOANG [facility] Rec#: [id number] : 1945 Date: 12/27/2017 Age: 72y Height: 167.64 cm / 66.0 in Weight: 95.71 kg / 210.9 lbs Sex: F BSA: 2.05 Room#: [facility] Admit Date#: 12/26/2017 Type: Inpatient Referring: Nathen Lou NP Reading: Ashish Aldridge MD Fuel Conversion Technician: Mariah Becerra RDCS CC: Zakia Zurita MD Transthoracic Echocardiogram Indication: Hypertension, elevated troponin level. BP: 169/85 HR: 98 Rhythm: NSR with PVCs Findings History: HTN, breast cancer s/p lumpectomy, obesity, pulmonary embolism, DVT, IDDM, CKD III, former smoker. Technical Comments: The study quality is fair. Completed at 0900. Left Ventricle: The left ventricular chamber size is normal. Moderate concentric left ventricular hypertrophy is observed. There is normal left ventricular systolic function. The estimated ejection fraction is 55-60%. There is septal flattening of the interventricular septum consistent with right ventricular volume or pressure overload. Abnormal left ventricular diastolic function is observed. There is an E to A reversal in the mitral valve flow pattern suggestive of diastolic dysfunction. Left Atrium: The left atrial chamber size is normal. Right Ventricle: Moderator Band present. The right ventricle is mildly dilated. The right ventricle wall thickness is normal. The right ventricular global systolic function is normal. Right Atrium: The right atrium is mildly dilated. Aortic Valve: The aortic valve is trileaflet. The aortic valve leaflets are mildly thickened. There is evidence of aortic sclerosis without stenosis. There is mild aortic regurgitation. There is no evidence of aortic stenosis. Mitral Valve: There is mitral annular calcification. The mitral valve leaflets do not appear thickened. There is mild to moderate mitral regurgitation. The MR appears to be posteriorly and laterally directed and more prominent early in systole. There is no evidence of mitral stenosis. Tricuspid Valve: The tricuspid valve leaflets are normal. There is a physiologic tricuspid regurgitation. Unable to estimate the right ventricular systolic pressure. There is no tricuspid stenosis. Pulmonic Valve: The pulmonic valve appears normal. There is a trace pulmonic regurgitation. There is no pulmonic stenosis. Pericardium: There is no significant pericardial effusion. A pericardial fat pad is visualized. Aorta: There is mild dilatation of the ascending aorta. There is no dilatation of the aortic arch. There is mild dilatation of the aortic root. Pulmonary Artery: The main pulmonary artery appears normal. Venous: The inferior vena cava appears normal in size. There is a greater than 50% respiratory change in the inferior vena cava dimension. Conclusions Moderate concentric left ventricular hypertrophy is observed. The estimated ejection fraction is 55-60%. There is an E to A reversal in the mitral valve flow pattern suggestive of diastolic dysfunction. The right ventricle is mildly dilated. The right atrium is mildly dilated. There is mild aortic regurgitation. There is mitral annular calcification. There is mild to moderate mitral regurgitation. The MR appears to be posteriorly and laterally directed and more prominent early in systole. There is a physiologic tricuspid regurgitation. There is mild dilatation of the ascending aorta. There is mild dilatation of the aortic root. Similar to 2016 except that septal flattening was not seen this time. Measurements Name Value Normal Range RVIDd (AP) 2D 3 cm (0.9 - 2.6) RVDdMajor (2D) 4.5 cm (2.2 - 4.4) RVAW (2D) 0.5 cm (0.2 - 0.5) RAd ISD 4CH 4.4 cm (3.4 - 4.9) RA (A4C)W 5.2 cm (2.9 - 4.6) IVSd (2D) 1.4 cm (0.6 - 1) LVPWd (2D) 1.4 cm (0.6 - 1) LVIDd (2D) 4 cm (3.6 - 5.4) LVIDs (2D) 3.2 cm - LV FS (2D) 20 % (25 - 45) Aortic Annulus 1.9 cm (1.4 - 2.6) Ao root diameter (2D) 3.6 cm (2.1 - 3.5) Ascending Ao 3.8 cm (2.1 - 3.4) Aortic arch 3 cm (1.8 - 3.4) LA dimension (AP) 2D 3.7 cm (2.3 - 3.8) LAd ISD 4CH 4.4 cm (2.9 - 5.3) LA ISD 4CH W 4.3 cm (2.5 - 4.5) Name Value Normal Range LA ESV SP 4CH (A/L) 77 ml - LA ESV SP 2CH (A/L) 44 ml - LA ESV BP (A/L) 60 ml - LA ESV BP (A/L) index 30 ml/m2 - LA ESV SP 4CH (MOD) 68 ml - LA ESV SP 2CH (MOD) 42 ml - Name Value Normal Range MV E-wave Vmax 0.94 m/sec - MV deceleration time 191.8 msec - MV A-wave Vmax 1.36 m/sec - MV E:A ratio 0.68 ratio - LV septal e' Vmax 0.05 m/sec - LV lateral e' Vmax 0.05 m/sec - LV E:e' septal ratio 18.8 ratio - LV E:e' lateral ratio 18.8 ratio - Name Value Normal Range AV Vmax 1.4 m/sec - AV VTI 26.45 cm - AV peak gradient 7.85 mmHg - AV mean gradient 4.16 mmHg - LVOT diameter 2 cm - LVOT Vmax 0.84 m/sec - LVOT VTI 17 cm - LVOT peak gradient 2.85 mmHg - LVOT mean gradient 1.58 mmHg - KEL (continuity Vmax) 1.9 cm2 - KEL (continuity VTI) 2 cm2 - AR PHT 382 msec - AR peak gradient 59.45 mmHg - Name Value Normal Range MR Vmax 6.4 m/sec - MR VTI 197 cm - MR flow (PISA) 47.3 ml/sec - MR ERO 0.07 cm2 - MR PISA radius 0.4 cm - MR alias Vmax 42 cm/sec - Name Value Normal Range IVC diameter 1.3 cm - Name Value Normal Range PV Vmax 0.89 m/sec - PV peak gradient 3.18 mmHg -
[2017-12-27] MEDS ORDERED: Insulin GLARGINE(*) 1 UNITS UNIT SUBCUT SCH (16:30)
--- NOTE | 2017-12-27 17:04 | PN ---
Subjective Date of Service: 12/27/17 Interval History: Pt seen and examined. Meds and labs reviewed. ROS: Increased urinary frequency recently. Denied HENDRICKS/dizziness, F/C, N/V, CP, SOB, increased cough, sputum production, abd pain, diarrhea, constipation, myalgias, arthralgias, throat pain, and new skin lesions. The rest of the 14 point ROS are unremarkable. PHYSICAL EXAM: GEN APPEARANCE: Awake, not in acute distress HEENT: NC/AT, PERRLA, moist oral mucosa, (-) throat erythema NECK: Soft, supple, (-) cervical LAD, (-)JVD HEART: S1S2 WNL, RRR, No MRG CHEST: CTA, BL, GAE, No W/R/R ABD: Soft, ND/NT, NABS 4x Q EXT: No C/C/E SKIN: Warm to touch PSYCH: No active psychosis, hallucinations, depression, SI/HI Objective Active Medications: Acetaminophen (Tylenol Tab*) 650 mg PO Q4H PRN PRN Reason: FEVER/PAIN Last Admin: 12/27/17 07:40 Dose: 650 mg Amlodipine Besylate (Norvasc Tab*) 10 mg PO DAILY [facility] Last Admin: 12/27/17 07:41 Dose: 10 mg Aspirin (Aspirin Ec Tab*) 81 mg PO DAILY [facility] Last Admin: 12/27/17 07:41 Dose: 81 mg Atenolol (Tenormin Tab*) 100 mg PO DAILY [facility] Last Admin: 12/27/17 07:40 Dose: 100 mg Atorvastatin Calcium (Lipitor*) 40 mg PO DAILY [facility] Last Admin: 12/27/17 07:40 Dose: 40 mg Dextrose (D50w Syringe 50 Ml*) 12.5 gm IV PUSH .FOR FS < 60 - SS PRN PRN Reason: FS < 60 Enoxaparin Sodium (Lovenox(*)) 30 mg SUBCUT Q24H [facility] Last Admin: 12/26/17 23:43 Dose: 30 mg Hydralazine HCl (Apresoline Iv*) 5 mg IV SLOW PU Q6H PRN PRN Reason: BLOOD PRESSURE Sodium Chloride (Ns 0.9% 1000 Ml*) 1,000 mls @ 150 mls/hr IV PER RATE [facility] Last Admin: 12/27/17 14:57 Dose: 150 mls/hr Ceftriaxone Sodium 1,000 mg/ (Sodium Chloride) 50 mls @ 200 mls/hr IVPB Q24H [facility] Insulin Glargine (Lantus(*)) 12 units SUBCUT Q24H [facility] Insulin Human Lispro (Humalog*) 0 units SUBCUT Q4H [facility]; Protocol Last Admin: 12/27/17 12:29 Dose: 6 units Levothyroxine Sodium (Synthroid Tab*) 200 mcg PO QAM [facility] Last Admin: 12/27/17 07:40 Dose: 200 mcg Melatonin (Melatonin) 3 mg PO BEDTIME PRN; Protocol PRN Reason: Sleep Last Admin: 12/27/17 03:09 Dose: 3 mg Omeprazole (Prilosec Cap*) 20 mg PO DAILY [facility] Last Admin: 12/27/17 07:41 Dose: 20 mg Vital Signs - 8 hr 12/27/17 12/27/17 11:27 15:22 Temperature 97.9 F 97.8 F Pulse Rate 81 75 Respiratory 16 18 Rate Blood Pressure 139/58 133/60 (mmHg) O2 Sat by Pulse 99 99 Oximetry Oxygen Devices in Use Now: None Result Diagrams: 12/27/17 04:44 12/27/17 04:44 Microbiology and Other Data: Microbiology 12/26/17 19:15 Urine Culture - Preliminary Urine Escherichia Coli Assess/Plan/Problems-Billing Assessment: - Patient Problems (1) Hyperosmolar syndrome Current Visit: Yes Status: Acute Code(s): E87.0 - HYPEROSMOLALITY AND HYPERNATREMIA SNOMED Code(s): 64205941 Comment: -Will increase Lantus to 12 units SQ; Continue ISS -Continue watchful waiting (2) UTI (urinary tract infection) Current Visit: No Status: Acute Comment: -Continue Rocephin (3) History of pulmonary embolism Current Visit: No Status: Chronic Code(s): Z86.711 - PERSONAL HISTORY OF PULMONARY EMBOLISM SNOMED Code(s): 465948317 Comment: -Continue Lovenox for now---back in 2016 (?provoked and/or unprovoked)SDH after a fall; no history of PE recurrence and given history of IC bleed, agree with holding further full dose anticoagulation; spoke with Dr. Zurita (4) CKD (chronic kidney disease) stage 3, GFR 30-59 ml/min Current Visit: Yes Status: Acute Code(s): N18.3 - CHRONIC KIDNEY DISEASE, STAGE 3 (MODERATE) SNOMED Code(s): 179992555 Comment: -Stable -Continue watchful waiting (5) HTN (hypertension) Current Visit: No Status: Chronic Priority: Medium Code(s): I10 - ESSENTIAL (PRIMARY) HYPERTENSION SNOMED Code(s): 51769242 Comment: -Slightly hypertensive earlier but has improved during the day -Will continue watchful waiting at this time (6) Hypothyroidism Current Visit: No Status: Chronic Code(s): E03.9 - HYPOTHYROIDISM, UNSPECIFIED SNOMED Code(s): 90039263 Comment: -Continue current Synthroid -Will check TSH in AM (7) DVT prophylaxis Current Visit: No Status: Acute Code(s): TZP3875 - SNOMED Code(s): 591440180 Comment: -Continue Lovenox SQ Status and Disposition: -For possible D/C home in 1-2 days
[2017-12-27] MEDS: cefTRIAXone VIAL(*) 1,000 MG in NS 0.9% 50 ML* 50 ML IVPB SCH (20:08)
[2017-12-27] MEDS: Enoxaparin(*) 30 MG/0.3 ML SYR SUBCUT SCH (21:39)
[2017-12-28] MEDS: Insulin LISPRO* 1 UNITS UNIT SUBCUT SCH ×7 (00:31→21:24)
[2017-12-28 06:40] LABS: ABS Basophils 0.1 10^3/ul (0-0.2); ABS Eosinophils 0.3 10^3/ul (0-0.6); ABS Lymphocytes 1.7 10^3/ul (1.0-4.8); ABS Monocytes 0.3 10^3/ul (0-0.8); ABS Nucleated RBC 0 10^3/ul; Eosinophil % 3.2 % (0-6); Hematocrit 27 % (35-47); Hemoglobin 9.1 g/dl (12.0-16.0); Lymphocyte % 20.6 % (25-47); Mean Corpuscular HGB Conc 34 g/dl (31-36); Mean Corpuscular Hemoglobin 29 pg (27-31); Mean Corpuscular Volume 86 fL (80-97); Mean Platelet Volume 7.5 um3 (7.4-10.4); Nucleated Red Blood Cells % 0; Platelet Count 281 10^3/ul (150-450); Red Blood Count 3.15 10^6/ul (4.00-5.40); Red Cell Distribution Width 15 % (10.5-15); White Blood Count 8.4 10^3/ul (3.5-10.8)
[2017-12-28] MEDS: NS 0.9% 1000 ML* 1,000 ML IV SCH ×3 (06:56→21:18)
[2017-12-28] MEDS: Acetaminophen TAB* 325 MG PO PRN ×2 (07:01→21:21)
[2017-12-28] MEDS: Atenolol TAB* 50 MG PO SCH (08:35)
[2017-12-28] MEDS: amLODIPine TAB* 5 MG PO SCH (08:37)
[2017-12-28] MEDS: Levothyroxine TAB* 100 MCG TAB PO SCH (08:38)
[2017-12-28] MEDS: Omeprazole CAP* 20 MG PO SCH (08:38)
[2017-12-28] MEDS: Aspirin EC TAB* 81 MG TAB.EC PO SCH (08:39)
[2017-12-28] MEDS: Atorvastatin* 40 MG TAB PO SCH (08:39)
[2017-12-28] MEDS: Insulin GLARGINE(*) 1 UNITS UNIT SUBCUT SCH (09:46)
[2017-12-28] MEDS: Docusate CAP* 100 MG PO SCH (12:40)
[2017-12-28] MEDS ORDERED: Dextrose 50% Syringe 50 ML* 25 GM/50 ML SYRINGE IV PUSH PRN (17:32)
--- NOTE | 2017-12-28 17:41 | PN ---
Subjective Date of Service: 12/28/17 Interval History: Pt seen and examined. Meds and labs reviewed. CC: N/A ROS: Denied HENDRICKS/dizziness, F/C, N/V, CP, SOB, increased cough, sputum production , abd pain, diarrhea, constipation, dysuria, myalgias, arthralgias, throat pain , and new skin lesions. The rest of the 14 point ROS are unremarkable. PHYSICAL EXAM: GEN APPEARANCE: Awake, not in acute distress HEENT: NC/AT, PERRLA, moist oral mucosa, (-) throat erythema NECK: Soft, supple, (-) cervical LAD, (-)JVD HEART: S1S2 WNL, RRR, No MRG CHEST: CTA, BL, GAE, No W/R/R ABD: Soft, ND/NT, NABS 4x Q EXT: No C/C/E SKIN: Warm to touch PSYCH: No active psychosis, hallucinations, depression, SI/HI Objective Active Medications: Acetaminophen (Tylenol Tab*) 650 mg PO Q4H PRN PRN Reason: FEVER/PAIN Last Admin: 12/28/17 07:01 Dose: 650 mg Amlodipine Besylate (Norvasc Tab*) 10 mg PO DAILY [facility] Last Admin: 12/28/17 08:37 Dose: 10 mg Aspirin (Aspirin Ec Tab*) 81 mg PO DAILY [facility] Last Admin: 12/28/17 08:39 Dose: 81 mg Atenolol (Tenormin Tab*) 100 mg PO DAILY [facility] Last Admin: 12/28/17 08:35 Dose: 100 mg Atorvastatin Calcium (Lipitor*) 40 mg PO DAILY [facility] Last Admin: 12/28/17 08:39 Dose: 40 mg Dextrose (D50w Syringe 50 Ml*) 12.5 gm IV PUSH .FOR FS < 60 - SS PRN PRN Reason: FS < 60 Dextrose (D50w Syringe 50 Ml*) 12.5 gm IV PUSH .FOR FS < 60 - SS PRN PRN Reason: FS < 60 Docusate Sodium (Colace Cap*) 200 mg PO DAILY [facility] Last Admin: 12/28/17 12:40 Dose: 200 mg Enoxaparin Sodium (Lovenox(*)) 30 mg SUBCUT Q24H [facility] Last Admin: 12/27/17 21:39 Dose: 30 mg Hydralazine HCl (Apresoline Iv*) 5 mg IV SLOW PU Q6H PRN PRN Reason: BLOOD PRESSURE Last Admin: 12/28/17 12:39 Dose: 5 mg Sodium Chloride (Ns 0.9% 1000 Ml*) 1,000 mls @ 150 mls/hr IV PER RATE [facility] Last Admin: 12/28/17 14:32 Dose: 150 mls/hr Ceftriaxone Sodium 1,000 mg/ (Sodium Chloride) 50 mls @ 200 mls/hr IVPB Q24H [facility] Last Admin: 12/27/17 20:08 Dose: 200 mls/hr Insulin Glargine (Lantus(*)) 16 units SUBCUT Q24H [facility] Last Admin: 12/28/17 09:46 Dose: 16 unit Insulin Human Lispro (Humalog*) 0 units SUBCUT Q4H [facility]; Protocol Last Admin: 12/28/17 17:06 Dose: 9 units Insulin Human Lispro (Humalog*) 6 units SUBCUT AC [facility] Levothyroxine Sodium (Synthroid Tab*) 225 mcg PO QAM [facility] Melatonin (Melatonin) 3 mg PO BEDTIME PRN; Protocol PRN Reason: Sleep Last Admin: 12/27/17 03:09 Dose: 3 mg Omeprazole (Prilosec Cap*) 20 mg PO DAILY [facility] Last Admin: 12/28/17 08:38 Dose: 20 mg Polyethylene Glycol/Electrolytes (Miralax*) 17 gm PO Q48H PRN PRN Reason: CONSTIPATION Vital Signs - 8 hr 12/28/17 12/28/17 12/28/17 11:48 12:27 14:38 Temperature 97.9 F 97.7 F Pulse Rate 78 75 Respiratory 20 20 Rate Blood Pressure 176/70 192/74 150/62 (mmHg) O2 Sat by Pulse 99 98 Oximetry 12/28/17 15:12 Temperature 98.2 F Pulse Rate 78 Respiratory 16 Rate Blood Pressure 136/58 (mmHg) O2 Sat by Pulse 99 Oximetry Oxygen Devices in Use Now: None Result Diagrams: 12/28/17 06:20 12/28/17 06:21 Microbiology and Other Data: Microbiology 12/26/17 19:15 Urine Culture - Preliminary Urine Escherichia Coli Assess/Plan/Problems-Billing Assessment: - Patient Problems (1) Hyperosmolar syndrome Current Visit: Yes Status: Acute Code(s): E87.0 - HYPEROSMOLALITY AND HYPERNATREMIA SNOMED Code(s): 10907164 Comment: -Will increase Lantus to 12 units SQ; Continue ISS -Continue watchful waiting (2) UTI (urinary tract infection) Current Visit: No Status: Acute Comment: -Continue Rocephin -Continue to follow blood culturesso far (-) x 1 day -If continue to clinically improve with continuing BC (-) by tomorrow, will transition to oral 1st gen cephalosporin (3) History of pulmonary embolism Current Visit: No Status: Chronic Code(s): Z86.711 - PERSONAL HISTORY OF PULMONARY EMBOLISM SNOMED Code(s): 049748251 Comment: -Continue Lovenox for now---back in 2016 (?provoked and/or unprovoked)SDH after a fall; no history of PE recurrence and given history of IC bleed, agree with holding further full dose anticoagulation; spoke with Dr. Zurita (4) CKD (chronic kidney disease) stage 3, GFR 30-59 ml/min Current Visit: Yes Status: Acute Code(s): N18.3 - CHRONIC KIDNEY DISEASE, STAGE 3 (MODERATE) SNOMED Code(s): 882886483 Comment: -Stable -Continue watchful waiting (5) HTN (hypertension) Current Visit: No Status: Chronic Priority: Medium Code(s): I10 - ESSENTIAL (PRIMARY) HYPERTENSION SNOMED Code(s): 58421390 Comment: -Slightly hypertensive earlier but has improved during the day -Will continue watchful waiting at this time (6) Hypothyroidism Current Visit: No Status: Chronic Code(s): E03.9 - HYPOTHYROIDISM, UNSPECIFIED SNOMED Code(s): 58698054 Comment: -Continue current Synthroid -Will check TSH in AM (7) DVT prophylaxis Current Visit: No Status: Acute Code(s): DUA8286 - SNOMED Code(s): 507075686 Comment: -Continue Lovenox SQ Status and Disposition: -For possible D/C home in AM
[2017-12-28] MEDS: cefTRIAXone VIAL(*) 1,000 MG in NS 0.9% 50 ML* 50 ML IVPB SCH (21:18)
[2017-12-28] MEDS: Enoxaparin(*) 30 MG/0.3 ML SYR SUBCUT SCH (21:25)
[2017-12-29] MEDS: Insulin LISPRO* 1 UNITS UNIT SUBCUT SCH ×9 (02:04→22:23)
[2017-12-29] MEDS: NS 0.9% 1000 ML* 1,000 ML IV SCH (04:04)
[2017-12-29] MEDS: Acetaminophen TAB* 325 MG PO PRN (04:36)
[2017-12-29] MEDS ORDERED: hydrALAZINE IV* 20 MG/ML VIAL IV SLOW PU PRN ×2 (04:47→04:55)
[2017-12-29] MEDS: Levothyroxine TAB* 100 MCG TAB PO SCH (05:26)
[2017-12-29] MEDS ORDERED: Levothyroxine TAB* 25 MCG TAB PO SCH (06:00)
[2017-12-29 06:19] LABS: ABS Basophils 0.1 10^3/ul (0-0.2); ABS Eosinophils 0.2 10^3/ul (0-0.6); ABS Lymphocytes 1.6 10^3/ul (1.0-4.8); ABS Monocytes 0.3 10^3/ul (0-0.8); ABS Neutrophils 5.8 10^3/ul (1.5-7.7); ABS Nucleated RBC 0 10^3/ul; Hematocrit 28 % (35-47); Hemoglobin 9.5 g/dl (12.0-16.0); Mean Corpuscular HGB Conc 34 g/dl (31-36); Mean Corpuscular Hemoglobin 29 pg (27-31); Mean Corpuscular Volume 87 fL (80-97); Mean Platelet Volume 7.6 um3 (7.4-10.4); Nucleated Red Blood Cells % 0; Platelet Count 268 10^3/ul (150-450); Red Blood Count 3.27 10^6/ul (4.00-5.40); Red Cell Distribution Width 15 % (10.5-15); White Blood Count 8.1 10^3/ul (3.5-10.8)
[2017-12-29 06:39] LABS: EGFR Non-African American 31.1 (>60)
[2017-12-29] MEDS: Atorvastatin* 40 MG TAB PO SCH (08:27)
[2017-12-29] MEDS: Aspirin EC TAB* 81 MG TAB.EC PO SCH (08:27)
[2017-12-29] MEDS: amLODIPine TAB* 5 MG PO SCH (08:27)
[2017-12-29] MEDS: Docusate CAP* 100 MG PO SCH (08:27)
[2017-12-29] MEDS: Omeprazole CAP* 20 MG PO SCH (08:27)
[2017-12-29] MEDS: Atenolol TAB* 50 MG PO SCH (08:27)
[2017-12-29] MEDS: Insulin GLARGINE(*) 1 UNITS UNIT SUBCUT SCH (09:08)
[2017-12-29] MEDS ORDERED: Losartan TAB* 25 MG PO ONE (12:14)
--- NOTE | 2017-12-29 12:15 | PN ---
Subjective Date of Service: 12/29/17 Interval History: Patient reports she is feeling better today. She admits to being noncompliant with home medications for the past month, is not able to give a reason why. She currently denies pain, sob or CP. Reports good appetite. Offers no complaints. Objective Active Medications: Acetaminophen (Tylenol Tab*) 650 mg PO Q4H PRN PRN Reason: FEVER/PAIN Last Admin: 12/29/17 04:36 Dose: 650 mg Amlodipine Besylate (Norvasc Tab*) 10 mg PO DAILY [facility] Last Admin: 12/29/17 08:27 Dose: 10 mg Aspirin (Aspirin Ec Tab*) 81 mg PO DAILY [facility] Last Admin: 12/29/17 08:27 Dose: 81 mg Atenolol (Tenormin Tab*) 100 mg PO DAILY [facility] Last Admin: 12/29/17 08:27 Dose: 100 mg Atorvastatin Calcium (Lipitor*) 40 mg PO DAILY [facility] Last Admin: 12/29/17 08:27 Dose: 40 mg Dextrose (D50w Syringe 50 Ml*) 12.5 gm IV PUSH .FOR FS < 60 - SS PRN PRN Reason: FS < 60 Dextrose (D50w Syringe 50 Ml*) 12.5 gm IV PUSH .FOR FS < 60 - SS PRN PRN Reason: FS < 60 Docusate Sodium (Colace Cap*) 200 mg PO DAILY [facility] Last Admin: 12/29/17 08:27 Dose: 200 mg Enoxaparin Sodium (Lovenox(*)) 30 mg SUBCUT Q24H [facility] Last Admin: 12/28/17 21:25 Dose: 30 mg Hydralazine HCl (Apresoline Iv*) 10 mg IV SLOW PU Q4H PRN PRN Reason: BLOOD PRESSURE Ceftriaxone Sodium 1,000 mg/ (Sodium Chloride) 50 mls @ 200 mls/hr IVPB Q24H [facility] Last Admin: 12/28/17 21:18 Dose: 200 mls/hr Insulin Glargine (Lantus(*)) 16 units SUBCUT Q24H [facility] Last Admin: 12/29/17 09:08 Dose: 16 unit Insulin Human Lispro (Humalog*) 0 units SUBCUT Q4H [facility]; Protocol Last Admin: 12/29/17 08:26 Dose: 9 units Insulin Human Lispro (Humalog*) 6 units SUBCUT AC [facility] Last Admin: 12/29/17 08:26 Dose: 6 units Levothyroxine Sodium (Synthroid Tab*) 200 mcg PO 0600 [facility] Last Admin: 12/29/17 05:26 Dose: 200 mcg Levothyroxine Sodium (Synthroid Tab*) 25 mcg PO DAILY@0600 [facility] Last Admin: 12/29/17 05:26 Dose: 25 mcg Melatonin (Melatonin) 3 mg PO BEDTIME PRN; Protocol PRN Reason: Sleep Last Admin: 12/27/17 03:09 Dose: 3 mg Omeprazole (Prilosec Cap*) 20 mg PO DAILY [facility] Last Admin: 12/29/17 08:27 Dose: 20 mg Polyethylene Glycol/Electrolytes (Miralax*) 17 gm PO Q48H PRN PRN Reason: CONSTIPATION Vital Signs - 8 hr 12/29/17 12/29/17 12/29/17 07:30 07:56 11:16 Temperature 98.8 F 97.8 F Pulse Rate 82 80 Respiratory 18 18 18 Rate Blood Pressure 116/87 180/81 (mmHg) O2 Sat by Pulse 98 95 Oximetry Oxygen Devices in Use Now: None Appearance: obese 72 yo female sitting up in a chair in NAD. A+Ox3 Ears/Nose/Mouth/Throat: Mucous Membranes Moist Neck: NL Appearance and Movements; NL JVP Respiratory: Symmetrical Chest Expansion and Respiratory Effort, Clear to Auscultation Cardiovascular: NL Sounds; No Murmurs; No JVD, RRR, No Edema Abdominal: NL Sounds; No Tenderness; No Distention, - - obese Extremities: No Edema, No Clubbing, Cyanosis Skin: No Rash or Ulcers, No Nodules or Sclerosis Neurological: Alert and Oriented x 3, NL Sensation, NL Gait, NL Muscle Strength and Tone Lines/Tubes/Other Access: Clean, Dry and Intact Peripheral IV Nutrition: Taking PO's Result Diagrams: 12/29/17 05:56 12/29/17 05:56 Microbiology and Other Data: Microbiology 12/26/17 19:15 Urine Culture - Preliminary Urine Escherichia Coli Assess/Plan/Problems-Billing Assessment: 72 yo female presents to the ER with c/o elevated blood sugar and running out of insulin found to have a blood sugar of 697. - Patient Problems (1) Hyperosmolar syndrome Comment: - Much better control but continues to be in the low 300's -Will increase Lantus to 18 units SQ; Continue lispro SS plus 6 units lispro with meals (2) UTI (urinary tract infection) Comment: - urine cx ecoli -Blood culturesso far NGTD -Switch Rocephin to po ceftin 250 mg BID for 7 days (3) Diabetes Comment: BG slowly improving - continues to have BGs 300's. Continue Lantus and lispro SS Will monitor and adjust as needed. (4) CKD (chronic kidney disease) stage 3, GFR 30-59 ml/min Comment: -Stable (5) HTN (hypertension) Comment: -Hypertensive with SBP 170-180s. Continue atenolol, norvasc - restart losartan that was on hold. Continue to hold HCTZ. - continue to monitor (6) History of pulmonary embolism Comment: -Continue Lovenox for now---back in 2016 (?provoked and/or unprovoked)SDH after a fall; no history of PE recurrence and given history of IC bleed, agree with holding further full dose anticoagulation (pt has not been taking it for 2 months); confirmed with PCP Dr. Zurita (7) Hypothyroidism Comment: - Continue Synthroid home dose 200 mcg - TSH 10 - last TSH on record is normal in 06/2017 - medication noncompliance - Will need repeat thyroid panel in 6 weeks. (8) DVT prophylaxis Comment: -Continue Lovenox SQ Status and Disposition: -For possible D/C home in AM if BS are improved.
[2017-12-29] MEDS ORDERED: Sertraline* 50 MG TAB PO ONE (14:00)
[2017-12-29] MEDS ORDERED: Venlafaxine EXT RELEASE CAP* 75 MG PO ONE (14:30)
[2017-12-29] MEDS: Polyethylene Glycol 3350* 17 GM PACKET PO PRN (18:03)
[2017-12-29] MEDS ORDERED: Insulin GLARGINE(*) 1 UNITS UNIT SUBCUT SCH ×2 (21:00→21:56)
[2017-12-29] MEDS ORDERED: Insulin LISPRO* 1 UNITS UNIT SUBCUT ONE (21:55)
[2017-12-29] MEDS: Enoxaparin(*) 30 MG/0.3 ML SYR SUBCUT SCH (22:14)
[2017-12-29] MEDS: ceFUROXime TAB(*) 250 MG PO SCH (22:14)
[2017-12-30] MEDS: Acetaminophen TAB* 325 MG PO PRN ×2 (01:14→14:11)
[2017-12-30 06:14] LABS: ABS Basophils 0 10^3/ul (0-0.2); ABS Eosinophils 0.2 10^3/ul (0-0.6); ABS Lymphocytes 1.6 10^3/ul (1.0-4.8); ABS Monocytes 0.4 10^3/ul (0-0.8); ABS Neutrophils 6.6 10^3/ul (1.5-7.7); ABS Nucleated RBC 0 10^3/ul; Eosinophil % 2.2 % (0-6); Hematocrit 28 % (35-47); Hemoglobin 9.2 g/dl (12.0-16.0); Lymphocyte % 18.5 % (25-47); Mean Corpuscular HGB Conc 33 g/dl (31-36); Mean Corpuscular Hemoglobin 29 pg (27-31); Mean Corpuscular Volume 86 fL (80-97); Mean Platelet Volume 7.6 um3 (7.4-10.4); Nucleated Red Blood Cells % 0; Platelet Count 282 10^3/ul (150-450); Red Blood Count 3.22 10^6/ul (4.00-5.40); Red Cell Distribution Width 15 % (10.5-15); White Blood Count 8.9 10^3/ul (3.5-10.8)
[2017-12-30 06:29] LABS: EGFR Non-African American 26.8 (>60)
[2017-12-30] MEDS: Levothyroxine TAB* 100 MCG TAB PO SCH (06:32)
--- NOTE | 2017-12-30 07:15 | PN ---
Subjective Date of Service: 12/30/17 Interval History: Patient reports she feels better today and had a large BM for the first time in days. Reports she has some abdominal bloating which is bothersome, denies pain. Otherwise states she is doing well. She agrees to APS services at this time Objective Active Medications: Acetaminophen (Tylenol Tab*) 650 mg PO Q4H PRN PRN Reason: FEVER/PAIN Last Admin: 12/30/17 01:14 Dose: 650 mg Amlodipine Besylate (Norvasc Tab*) 10 mg PO DAILY [facility] Last Admin: 12/29/17 08:27 Dose: 10 mg Aspirin (Aspirin Ec Tab*) 81 mg PO DAILY [facility] Last Admin: 12/29/17 08:27 Dose: 81 mg Atenolol (Tenormin Tab*) 100 mg PO DAILY [facility] Last Admin: 12/29/17 08:27 Dose: 100 mg Atorvastatin Calcium (Lipitor*) 40 mg PO DAILY [facility] Last Admin: 12/29/17 08:27 Dose: 40 mg Cefuroxime Axetil (Ceftin Tab(*)) 250 mg PO BID [facility] Last Admin: 12/29/17 22:14 Dose: 250 mg Dextrose (D50w Syringe 50 Ml*) 12.5 gm IV PUSH .FOR FS < 60 - SS PRN PRN Reason: FS < 60 Dextrose (D50w Syringe 50 Ml*) 12.5 gm IV PUSH .FOR FS < 60 - SS PRN PRN Reason: FS < 60 Docusate Sodium (Colace Cap*) 200 mg PO DAILY [facility] Last Admin: 12/29/17 08:27 Dose: 200 mg Enoxaparin Sodium (Lovenox(*)) 30 mg SUBCUT Q24H [facility] Last Admin: 12/29/17 22:14 Dose: 30 mg Hydralazine HCl (Apresoline Iv*) 10 mg IV SLOW PU Q4H PRN PRN Reason: BLOOD PRESSURE Hydrochlorothiazide (Hydrodiuril Tab*) 25 mg PO DAILY [facility] Insulin Glargine (Lantus(*)) 25 units SUBCUT Q24H [facility] Last Admin: 12/29/17 22:13 Dose: 25 units Insulin Human Lispro (Humalog*) 6 units SUBCUT AC [facility] Last Admin: 12/29/17 17:57 Dose: 6 units Insulin Human Lispro (Humalog*) 0 units SUBCUT ACHS [facility]; Protocol Last Admin: 12/29/17 22:23 Dose: Not Given Levothyroxine Sodium (Synthroid Tab*) 200 mcg PO 0600 [facility] Last Admin: 12/30/17 06:32 Dose: 200 mcg Losartan Potassium (Cozaar Tab*) 100 mg PO DAILY [facility] Melatonin (Melatonin) 3 mg PO BEDTIME PRN; Protocol PRN Reason: Sleep Last Admin: 12/27/17 03:09 Dose: 3 mg Omeprazole (Prilosec Cap*) 20 mg PO DAILY [facility] Last Admin: 12/29/17 08:27 Dose: 20 mg Polyethylene Glycol/Electrolytes (Miralax*) 17 gm PO Q48H PRN PRN Reason: CONSTIPATION Last Admin: 12/29/17 18:03 Dose: 17 gm Sertraline HCl (Zoloft*) 50 mg PO DAILY [facility] Venlafaxine HCl (Effexor Xr Cap*) 150 mg PO DAILY [facility] Vital Signs - 8 hr 12/29/17 12/30/17 23:51 03:26 Temperature 98.1 F 97.8 F Pulse Rate 83 80 Respiratory 16 18 Rate Blood Pressure 166/75 162/73 (mmHg) O2 Sat by Pulse 97 98 Oximetry Oxygen Devices in Use Now: None Appearance: obese female sitting up in bed in NAD, A+O x3 Eyes: No Scleral Icterus, PERRLA Ears/Nose/Mouth/Throat: NL Teeth, Lips, Gums, Mucous Membranes Moist Neck: NL Appearance and Movements; NL JVP, Trachea Midline Respiratory: Symmetrical Chest Expansion and Respiratory Effort, Clear to Auscultation Cardiovascular: NL Sounds; No Murmurs; No JVD, RRR Abdominal: NL Sounds; No Tenderness; No Distention Extremities: No Clubbing, Cyanosis Skin: - - warm, pick, dry Neurological: Alert and Oriented x 3, NL Sensation, NL Gait, NL Muscle Strength and Tone Lines/Tubes/Other Access: Clean, Dry and Intact Peripheral IV Nutrition: Taking PO's Result Diagrams: 12/30/17 05:39 12/30/17 05:39 Microbiology and Other Data: Microbiology 12/26/17 19:15 Urine Culture - Preliminary Urine Escherichia Coli Assess/Plan/Problems-Billing Assessment: 72 yo female presents to the ER with c/o elevated blood sugar and running out of insulin at home per patient found to have a blood sugar of 697. 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 Will increase Lantus to from 25u to 30u this evening. -Continue lispro SS plus increase from 6 to 8 units lispro with meals (2) UTI (urinary tract infection) Comment: - urine cx ecoli -Blood culturesso far NGTD -Switch Rocephin to po ceftin 250 mg BID for 7 days - Day 06/29 (3) Diabetes Comment: See above will need prescription for insulin at discharge (4) Anemia Comment: Not new. add on iron studies. send stool for occult blood. (5) CKD (chronic kidney disease) stage 3, GFR 30-59 ml/min Comment: -Stable at baseline (6) HTN (hypertension) Comment: - Blood pressures continue to be high. Continue atenolol, norvasc, losartan and restart HCTZ today. - continue to monitor (7) History of pulmonary embolism Comment: -Dx in 2016 (?provoked and/or unprovoked)SDH after a fall; no history of PE recurrence and given history of IC bleed, agree with holding further full dose anticoagulation (pt has not been taking it for 2 months); confirmed with PCP Dr. Zurita (8) Hypothyroidism Comment: - She was restarted on Synthroid home dose 200 mcg (then increased to 225 mcg)- but now has GI bloating - possibly secondary to high synthroid dose being restarted - will lower it to 100 mcg d/t most likely she has been not taking it and may tolerated a lower dose better. - TSH 10 - last TSH on record is normal in 06/2017 - medication noncompliance - Will need repeat thyroid panel in 6 weeks. (9) DVT prophylaxis Comment: -Continue Lovenox SQ Status and Disposition: -Inpatient. Plan for DC to home when medically stable and blood sugars are controlled. [facility] will not open patient d/t living conditions and noncompliant. , She will be opened with adult protective services. Possibly tomorrow.
[2017-12-30] MEDS: Losartan TAB* 25 MG PO SCH (08:45)
[2017-12-30] MEDS: Atorvastatin* 40 MG TAB PO SCH (08:45)
[2017-12-30] MEDS: Sertraline* 50 MG TAB PO SCH (08:45)
[2017-12-30] MEDS: Docusate CAP* 100 MG PO SCH (08:46)
[2017-12-30] MEDS: amLODIPine TAB* 5 MG PO SCH (08:46)
[2017-12-30] MEDS: Venlafaxine EXT RELEASE CAP* 75 MG PO SCH (08:46)
[2017-12-30] MEDS: Polyethylene Glycol 3350* 17 GM PACKET PO PRN (08:46)
[2017-12-30] MEDS: Hydrochlorothiazide TAB* 25 MG PO SCH (08:46)
[2017-12-30] MEDS: Atenolol TAB* 50 MG PO SCH (08:46)
[2017-12-30] MEDS: Aspirin EC TAB* 81 MG TAB.EC PO SCH (08:46)
[2017-12-30] MEDS: Omeprazole CAP* 20 MG PO SCH (08:46)
[2017-12-30] MEDS: ceFUROXime TAB(*) 250 MG PO SCH ×2 (08:46→20:24)
[2017-12-30] MEDS: Insulin LISPRO* 1 UNITS UNIT SUBCUT SCH ×7 (08:47→20:53)
[2017-12-30] MEDS ORDERED: NS 0.9% 1000 ML* 1,000 ML IV SCH (10:00)
[2017-12-30] MEDS: Enoxaparin(*) 30 MG/0.3 ML SYR SUBCUT SCH (20:23)
[2017-12-30] MEDS ORDERED: Insulin GLARGINE(*) 1 UNITS UNIT SUBCUT SCH (21:00)
[2017-12-30] MEDS: Melatonin 3 MG TAB PO PRN (23:55)
[2017-12-31 06:03] LABS: ABS Basophils 0.1 10^3/ul (0-0.2); ABS Eosinophils 0.2 10^3/ul (0-0.6); ABS Lymphocytes 1.5 10^3/ul (1.0-4.8); ABS Monocytes 0.4 10^3/ul (0-0.8); ABS Nucleated RBC 0 10^3/ul; Eosinophil % 2.7 % (0-6); Hematocrit 27 % (35-47); Lymphocyte % 18.6 % (25-47); Mean Corpuscular HGB Conc 33 g/dl (31-36); Mean Corpuscular Hemoglobin 29 pg (27-31); Mean Corpuscular Volume 87 fL (80-97); Mean Platelet Volume 7.9 um3 (7.4-10.4); Nucleated Red Blood Cells % 0; Platelet Count 284 10^3/ul (150-450); Red Blood Count 3.13 10^6/ul (4.00-5.40); Red Cell Distribution Width 15 % (10.5-15); White Blood Count 8.3 10^3/ul (3.5-10.8)
[2017-12-31] MEDS: Levothyroxine TAB* 100 MCG TAB PO SCH (06:06)
[2017-12-31 06:23] LABS: EGFR Non-African American 27.5 (>60)
[2017-12-31] MEDS: Insulin LISPRO* 1 UNITS UNIT SUBCUT SCH ×7 (08:15→22:05)
[2017-12-31] MEDS: ceFUROXime TAB(*) 250 MG PO SCH ×2 (08:16→21:34)
[2017-12-31] MEDS: Docusate CAP* 100 MG PO SCH (08:16)
[2017-12-31] MEDS: Hydrochlorothiazide TAB* 25 MG PO SCH (08:16)
[2017-12-31] MEDS: Sertraline* 50 MG TAB PO SCH (08:16)
[2017-12-31] MEDS: Omeprazole CAP* 20 MG PO SCH (08:16)
[2017-12-31] MEDS: Atenolol TAB* 50 MG PO SCH (08:16)
[2017-12-31] MEDS: Atorvastatin* 40 MG TAB PO SCH (08:16)
[2017-12-31] MEDS: Aspirin EC TAB* 81 MG TAB.EC PO SCH (08:16)
[2017-12-31] MEDS: Venlafaxine EXT RELEASE CAP* 75 MG PO SCH (08:16)
[2017-12-31] MEDS: amLODIPine TAB* 5 MG PO SCH (08:16)
[2017-12-31] MEDS: Losartan TAB* 25 MG PO SCH (08:17)
[2017-12-31] MEDS: Acetaminophen TAB* 325 MG PO PRN (10:20)
[2017-12-31] MEDS: Fluticasone NASAL SPRAY 50MCG* 16 gm SPRAY BTL BOTH NARES SCH ×2 (10:21→10:22)
--- NOTE | 2017-12-31 13:50 | RAD ---
INDICATION: Abdominal distention. COMPARISON: Comparison is made with a prior CT of the abdomen and pelvis from May 03, 2017. Correlation is also made with a prior abdominal series from February 21, 2017 TECHNIQUE: Supine and upright views of the abdomen were obtained. FINDINGS: The small bowel and colon appear nondistended. No free intraperitoneal air is seen. There is a moderate to large amount retained stool throughout the colon. Surgical clips are noted in the right upper quadrant most consistent with a prior cholecystectomy. IMPRESSION: MODERATE TO LARGE AMOUNT RETAINED STOOL.
[2017-12-31] MEDS ORDERED: Sodium Phosphate ADULT ENEMA* 118 ml bottle PR STA (16:35)
--- NOTE | 2017-12-31 17:03 | PN ---
Subjective Date of Service: 12/31/17 Interval History: Pt seen and examined. Meds and labs reviewed. CC: Complains of bloating and mentioned somewhat soft stool and narrates a history of similar symptoms when she would get diagnosed with C. diff ROS: Denied HENDRICKS/dizziness, F/C, N/V, CP, SOB, increased cough, sputum production , abd pain, diarrhea, constipation, dysuria, myalgias, arthralgias, throat pain , and new skin lesions. The rest of the 14 point ROS are unremarkable. PHYSICAL EXAM: GEN APPEARANCE: Awake, not in acute distress, obese HEENT: NC/AT, PERRLA, moist oral mucosa, (-) throat erythema NECK: Soft, supple, (-) cervical LAD, (-)JVD HEART: S1S2 WNL, RRR, No MRG CHEST: CTA, BL, GAE, No W/R/R ABD: Soft, ND/NT, slightly hyperactive BS 4x Q EXT: No C/C/E SKIN: Warm to touch PSYCH: No active psychosis, hallucinations, depression, SI/HI Objective Active Medications: Acetaminophen (Tylenol Tab*) 650 mg PO Q4H PRN PRN Reason: FEVER/PAIN Last Admin: 12/31/17 10:20 Dose: 650 mg Amlodipine Besylate (Norvasc Tab*) 10 mg PO DAILY [facility] Last Admin: 12/31/17 08:16 Dose: 10 mg Aspirin (Aspirin Ec Tab*) 81 mg PO DAILY [facility] Last Admin: 12/31/17 08:16 Dose: 81 mg Atenolol (Tenormin Tab*) 100 mg PO DAILY [facility] Last Admin: 12/31/17 08:16 Dose: 100 mg Atorvastatin Calcium (Lipitor*) 40 mg PO DAILY [facility] Last Admin: 12/31/17 08:16 Dose: 40 mg Cefuroxime Axetil (Ceftin Tab(*)) 250 mg PO BID [facility] Last Admin: 12/31/17 08:16 Dose: 250 mg Dextrose (D50w Syringe 50 Ml*) 12.5 gm IV PUSH .FOR FS < 60 - SS PRN PRN Reason: FS < 60 Docusate Sodium (Colace Cap*) 200 mg PO DAILY [facility] Last Admin: 12/31/17 08:16 Dose: 200 mg Enoxaparin Sodium (Lovenox(*)) 30 mg SUBCUT Q24H [facility] Last Admin: 12/30/17 20:23 Dose: 30 mg Fluticasone Propionate (Flonase Nasal [place] 50mcg*) 2 spray BOTH NARES DAILY [facility] Last Admin: 12/31/17 10:22 Dose: Not Given Hydralazine HCl (Apresoline Iv*) 10 mg IV SLOW PU Q4H PRN PRN Reason: BLOOD PRESSURE Hydrochlorothiazide (Hydrodiuril Tab*) 25 mg PO DAILY [facility] Last Admin: 12/31/17 08:16 Dose: 25 mg Insulin Glargine (Lantus(*)) 33 units SUBCUT Q24H [facility] Insulin Human Lispro (Humalog*) 0 units SUBCUT ACHS [facility]; Protocol Last Admin: 12/31/17 12:39 Dose: 6 units Insulin Human Lispro (Humalog*) 10 units SUBCUT AC [facility] Last Admin: 12/31/17 12:39 Dose: 10 unit Levothyroxine Sodium (Synthroid Tab*) 100 mcg PO 0600 [facility] Last Admin: 12/31/17 06:06 Dose: 100 mcg Losartan Potassium (Cozaar Tab*) 100 mg PO DAILY [facility] Last Admin: 12/31/17 08:17 Dose: 100 mg Melatonin (Melatonin) 3 mg PO BEDTIME PRN; Protocol PRN Reason: Sleep Last Admin: 12/30/17 23:55 Dose: 3 mg Omeprazole (Prilosec Cap*) 20 mg PO DAILY [facility] Last Admin: 12/31/17 08:16 Dose: 20 mg Polyethylene Glycol/Electrolytes (Miralax*) 17 gm PO Q48H PRN PRN Reason: CONSTIPATION Last Admin: 12/30/17 08:46 Dose: 17 gm Senna (Senokot Tab*) 2 tab PO BEDTIME [facility] Sertraline HCl (Zoloft*) 50 mg PO DAILY [facility] Last Admin: 12/31/17 08:16 Dose: 50 mg Venlafaxine HCl (Effexor Xr Cap*) 150 mg PO DAILY [facility] Last Admin: 12/31/17 08:16 Dose: 150 mg Vital Signs - 8 hr 12/31/17 12/31/17 11:08 15:18 Temperature 97.7 F 97.6 F Pulse Rate 72 72 Respiratory 20 16 Rate Blood Pressure 141/62 125/62 (mmHg) O2 Sat by Pulse 99 98 Oximetry Oxygen Devices in Use Now: None Result Diagrams: 12/31/17 05:20 12/31/17 05:20 Microbiology and Other Data: Microbiology 12/26/17 19:15 Urine Culture - Preliminary Urine Escherichia Coli Assess/Plan/Problems-Billing Assessment: 72 yo female presents to the ER with c/o elevated blood sugar and running out of insulin at home per patient found to have a blood sugar of 697. Patient admits to being noncompliant with home medications - Patient Problems (1) Diabetes Current Visit: Yes Status: Chronic Priority: High Code(s): E11.9 - TYPE 2 DIABETES MELLITUS WITHOUT COMPLICATIONS SNOMED Code(s): 97725714 Comment: -Uncontrolled -Will Increase Lantus to 33 units and qAC lispro to 10 units with ISS -Continue watchful waiting (2) Hyperosmolar syndrome Current Visit: Yes Status: Acute Code(s): E87.0 - HYPEROSMOLALITY AND HYPERNATREMIA SNOMED Code(s): 33611385 Comment: -Resolved (3) Bloating symptom Current Visit: Yes Status: Acute Code(s): R14.0 - ABDOMINAL DISTENSION ( GASEOUS) SNOMED Code(s): 097669959 Comment: -AXR reveals poorly evacuated bowels suggestive of constipation -Will add Senna to regimen in addition to 1x Fleet enema -Continue Colace -C. diff test cancelled given stool was not soft enough as per her previous claim (4) Hypothyroidism Current Visit: Yes Status: Chronic Code(s): E03.9 - HYPOTHYROIDISM, UNSPECIFIED SNOMED Code(s): 78788889 Comment: - Given bloating is likely due to constipation, with significantly elevated TSH and pt being a poor historian, I am concerned about such rapid decrease of Synthroid if she is compliant since clincical hypothyroidism can lead to constipation and she has not felt better with the change above and subjective feeling of bloating seems to have worsened -Will check FT3 and FT4 levelsContinue 100 ug for now and decide to increase back to at least home dose if there continues to be question of compliance with home meds (5) UTI (urinary tract infection) Current Visit: No Status: Acute Comment: -Urine cx ecoli -Blood culturesso far NGTD -Continue Cefuroxime 250 mg BID for 7 days - Day 3 (6) History of pulmonary embolism Current Visit: No Status: Chronic Code(s): Z86.711 - PERSONAL HISTORY OF PULMONARY EMBOLISM SNOMED Code(s): 660566721 Comment: -Dx in 2016 (?provoked and/or unprovoked)SDH after a fall; no history of PE recurrence and given history of IC bleed, agree with holding further full dose anticoagulation (pt has not been taking it for 2 months); confirmed with PCP Dr. Zurita (7) CKD (chronic kidney disease) stage 3, GFR 30-59 ml/min Current Visit: Yes Status: Acute Code(s): N18.3 - CHRONIC KIDNEY DISEASE, STAGE 3 (MODERATE) SNOMED Code(s): 984410604 Comment: -Stable at baseline (8) HTN (hypertension) Current Visit: Yes Status: Chronic Priority: Medium Code(s): I10 - ESSENTIAL (PRIMARY) HYPERTENSION SNOMED Code(s): 68932133 Comment: -Improved control -Continue atenolol, norvasc, losartan and restart HCTZ today. -Continue to monitor (9) Anemia Current Visit: Yes Status: Acute Code(s): D64.9 - ANEMIA, UNSPECIFIED SNOMED Code(s): 155015051 Comment: -Iron studies reassuring---possibly due to CKD -Despite being normocytic, will send for folate, B12, and methylmalonic acid levels given MCV may be a late presentation for these deficiencies (10) DVT prophylaxis Current Visit: Yes Status: Acute Code(s): TPC1082 - SNOMED Code(s): 409672402 Comment: -Continue Lovenox SQ Status and Disposition: -Possible D/C home in 2 days--Pt concerned about going home on the weekend -[facility] will not open patient d/t living conditions and noncompliant. , She will be opened with adult protective services. Possibly tomorrow.
[2017-12-31] MEDS ORDERED: Insulin GLARGINE(*) 1 UNITS UNIT SUBCUT SCH (21:00)
[2017-12-31] MEDS: Enoxaparin(*) 30 MG/0.3 ML SYR SUBCUT SCH (21:34)
[2017-12-31] MEDS: Senna TAB PO SCH (21:35)
[2018-01-01] MEDS: Acetaminophen TAB* 325 MG PO PRN (01:27)
[2018-01-01] MEDS: Melatonin 3 MG TAB PO PRN (01:29)
[2018-01-01] MEDS: Levothyroxine TAB* 100 MCG TAB PO SCH (05:16)
[2018-01-01 06:06] LABS: ABS Basophils 0.1 10^3/ul (0-0.2); ABS Eosinophils 0.3 10^3/ul (0-0.6); ABS Lymphocytes 1.9 10^3/ul (1.0-4.8); ABS Monocytes 0.5 10^3/ul (0-0.8); ABS Neutrophils 6.1 10^3/ul (1.5-7.7); ABS Nucleated RBC 0 10^3/ul; Eosinophil % 2.9 % (0-6); Hematocrit 25 % (35-47); Hemoglobin 8.4 g/dl (12.0-16.0); Lymphocyte % 21.5 % (25-47); Mean Corpuscular HGB Conc 34 g/dl (31-36); Mean Corpuscular Hemoglobin 29 pg (27-31); Mean Corpuscular Volume 87 fL (80-97); Mean Platelet Volume 7.6 um3 (7.4-10.4); Nucleated Red Blood Cells % 0; Platelet Count 280 10^3/ul (150-450); Red Blood Count 2.87 10^6/ul (4.00-5.40); Red Cell Distribution Width 15 % (10.5-15); White Blood Count 8.8 10^3/ul (3.5-10.8)
[2018-01-01 06:25] LABS: EGFR Non-African American 28.8 (>60)
[2018-01-01] MEDS ORDERED: Insulin GLARGINE(*) 1 UNITS UNIT SUBCUT SCH (08:14)
[2018-01-01] MEDS: Insulin LISPRO* 1 UNITS UNIT SUBCUT SCH ×7 (08:29→21:34)
[2018-01-01] MEDS: Insulin GLARGINE(*) 1 UNITS UNIT SUBCUT SCH ×2 (08:29→21:33)
[2018-01-01] MEDS: Atorvastatin* 40 MG TAB PO SCH (08:30)
[2018-01-01] MEDS: Atenolol TAB* 50 MG PO SCH (08:30)
[2018-01-01] MEDS ORDERED: Magnesium Sulfate IV* 3 GM in NS 0.9% 100 ML* 100 ML IVPB ONE (08:30)
[2018-01-01] MEDS: ceFUROXime TAB(*) 250 MG PO SCH ×2 (08:30→20:58)
[2018-01-01] MEDS: Losartan TAB* 25 MG PO SCH (08:30)
[2018-01-01] MEDS: Hydrochlorothiazide TAB* 25 MG PO SCH (08:30)
[2018-01-01] MEDS: Omeprazole CAP* 20 MG PO SCH (08:30)
[2018-01-01] MEDS: Docusate CAP* 100 MG PO SCH (08:30)
[2018-01-01] MEDS: amLODIPine TAB* 5 MG PO SCH (08:31)
[2018-01-01] MEDS: Aspirin EC TAB* 81 MG TAB.EC PO SCH (08:31)
[2018-01-01] MEDS: Venlafaxine EXT RELEASE CAP* 75 MG PO SCH (08:31)
[2018-01-01] MEDS: Sertraline* 50 MG TAB PO SCH (08:31)
[2018-01-01] MEDS: Fluticasone NASAL SPRAY 50MCG* 16 gm SPRAY BTL BOTH NARES SCH (08:33)
--- NOTE | 2018-01-01 13:40 | PN ---
Subjective Date of Service: 01/01/18 Interval History: Pt seen and examined. Meds and labs reviewed. CC: Constipation despite being given Fleet enema yesterday ROS: Denied HENDRICKS/dizziness, F/C, N/V, CP, SOB, increased cough, sputum production , abd pain, diarrhea, dysuria, myalgias, arthralgias, throat pain, and new skin lesions. The rest of the 14 point ROS are unremarkable. PHYSICAL EXAM: GEN APPEARANCE: Awake, not in acute distress HEENT: NC/AT, PERRLA, moist oral mucosa, (-) throat erythema NECK: Soft, supple, (-) cervical LAD, (-)JVD HEART: S1S2 WNL, RRR, No MRG CHEST: CTA, BL, GAE, No W/R/R ABD: Soft, ND/NT, NABS 4x Q EXT: No C/C/E SKIN: Warm to touch PSYCH: No active psychosis, hallucinations, depression, SI/HI Objective Active Medications: Acetaminophen (Tylenol Tab*) 650 mg PO Q4H PRN PRN Reason: FEVER/PAIN Last Admin: 01/01/18 01:27 Dose: 650 mg Amlodipine Besylate (Norvasc Tab*) 10 mg PO DAILY [facility] Last Admin: 01/01/18 08:31 Dose: 10 mg Aspirin (Aspirin Ec Tab*) 81 mg PO DAILY [facility] Last Admin: 01/01/18 08:31 Dose: 81 mg Atenolol (Tenormin Tab*) 100 mg PO DAILY [facility] Last Admin: 01/01/18 08:30 Dose: 100 mg Atorvastatin Calcium (Lipitor*) 40 mg PO DAILY [facility] Last Admin: 01/01/18 08:30 Dose: 40 mg Cefuroxime Axetil (Ceftin Tab(*)) 250 mg PO BID [facility] Last Admin: 01/01/18 08:30 Dose: 250 mg Dextrose (D50w Syringe 50 Ml*) 12.5 gm IV PUSH .FOR FS < 60 - SS PRN PRN Reason: FS < 60 Docusate Sodium (Colace Cap*) 200 mg PO DAILY [facility] Last Admin: 01/01/18 08:30 Dose: 200 mg Enoxaparin Sodium (Lovenox(*)) 30 mg SUBCUT Q24H [facility] Last Admin: 12/31/17 21:34 Dose: 30 mg Fluticasone Propionate (Flonase Nasal [place] 50mcg*) 2 spray BOTH NARES DAILY [facility] Last Admin: 01/01/18 08:33 Dose: 2 spray Hydralazine HCl (Apresoline Iv*) 10 mg IV SLOW PU Q4H PRN PRN Reason: BLOOD PRESSURE Hydrochlorothiazide (Hydrodiuril Tab*) 25 mg PO DAILY [facility] Last Admin: 01/01/18 08:30 Dose: 25 mg Insulin Glargine (Lantus(*)) 20 units SUBCUT BID [facility] Last Admin: 01/01/18 08:29 Dose: 20 units Insulin Human Lispro (Humalog*) 0 units SUBCUT ACHS [facility]; Protocol Last Admin: 01/01/18 08:29 Dose: 12 units Insulin Human Lispro (Humalog*) 12 units SUBCUT AC [facility] Lactulose (Lactulose*) 45 ml PO TID [facility] Stop: 01/02/18 09:59 Last Admin: 01/01/18 10:44 Dose: 45 ml Levothyroxine Sodium (Synthroid Tab*) 100 mcg PO 0600 [facility] Last Admin: 01/01/18 05:16 Dose: 100 mcg Losartan Potassium (Cozaar Tab*) 100 mg PO DAILY [facility] Last Admin: 01/01/18 08:30 Dose: 100 mg Melatonin (Melatonin) 3 mg PO BEDTIME PRN; Protocol PRN Reason: Sleep Last Admin: 01/01/18 01:29 Dose: 3 mg Omeprazole (Prilosec Cap*) 20 mg PO DAILY [facility] Last Admin: 01/01/18 08:30 Dose: 20 mg Polyethylene Glycol/Electrolytes (Miralax*) 17 gm PO Q48H PRN PRN Reason: CONSTIPATION Last Admin: 12/30/17 08:46 Dose: 17 gm Senna (Senokot Tab*) 2 tab PO BEDTIME [facility] Last Admin: 12/31/17 21:35 Dose: 2 tab Sertraline HCl (Zoloft*) 50 mg PO DAILY [facility] Last Admin: 01/01/18 08:31 Dose: 50 mg Venlafaxine HCl (Effexor Xr Cap*) 150 mg PO DAILY [facility] Last Admin: 01/01/18 08:31 Dose: 150 mg Vital Signs - 8 hr 01/01/18 01/01/18 07:26 08:00 Temperature 98.1 F Pulse Rate 77 Respiratory 16 18 Rate Blood Pressure 141/64 (mmHg) O2 Sat by Pulse 95 Oximetry Oxygen Devices in Use Now: None Result Diagrams: 01/01/18 05:59 01/01/18 05:59 Microbiology and Other Data: Microbiology 12/26/17 19:15 Urine Culture - Preliminary Urine Escherichia Coli Assess/Plan/Problems-Billing Assessment: 72 yo female presents to the ER with c/o elevated blood sugar and running out of insulin at home per patient found to have a blood sugar of 697. Patient admits to being noncompliant with home medications - Patient Problems (1) Diabetes Current Visit: Yes Status: Chronic Priority: High Code(s): E11.9 - TYPE 2 DIABETES MELLITUS WITHOUT COMPLICATIONS SNOMED Code(s): 33718813 Comment: -Uncontrolled -Given her weight is ~100Kg, she likely would respond better if Lantus is given BID; will increase total units to 40, i.e., 20 units BID and will increase Insulin lispro to 12 units -Continue watchful waiting (2) Constipation Current Visit: Yes Status: Acute Code(s): K59.00 - CONSTIPATION, UNSPECIFIED SNOMED Code(s): 98982638 Comment: -AXR reveals poorly evacuated bowels suggestive of constipation -Continue Colace and Senna -Give Lactulose PO TID x 1 day, as ordered (3) Hyperosmolar syndrome Current Visit: Yes Status: Acute Code(s): E87.0 - HYPEROSMOLALITY AND HYPERNATREMIA SNOMED Code(s): 74656421 Comment: -Resolved (4) Hypothyroidism Current Visit: Yes Status: Chronic Code(s): E03.9 - HYPOTHYROIDISM, UNSPECIFIED SNOMED Code(s): 84782334 Comment: - FT3 and FT4 found to be normal likely due to improved compliance while hospitalized. She narrates a story where she may have forgotten to take her thyroid medications at night for at least a month prior to admission -Given above, will not act on elevated TSH and will continue lowered dose -Repeat TSH, FT3, and FT4 in six weeks given history of patient non-compliance and above change (5) UTI (urinary tract infection) Current Visit: No Status: Acute Comment: Current Visit: No Status: Acute Comment: -Urine cx ecoli -Blood cultures (-)x 5 days--final -Continue Cefuroxime 250 mg BID for 7 days - Day 4 (6) History of pulmonary embolism Current Visit: No Status: Chronic Code(s): Z86.711 - PERSONAL HISTORY OF PULMONARY EMBOLISM SNOMED Code(s): 369739567 Comment: -Dx in 2016 (?provoked and/or unprovoked)SDH after a fall; no history of PE recurrence and given history of IC bleed, agree with holding further full dose anticoagulation (pt has not been taking it for 2 months); confirmed with PCP Dr. Zurita (7) CKD (chronic kidney disease) stage 3, GFR 30-59 ml/min Current Visit: Yes Status: Acute Code(s): N18.3 - CHRONIC KIDNEY DISEASE, STAGE 3 (MODERATE) SNOMED Code(s): 100662444 Comment: -Stable at baseline (8) HTN (hypertension) Current Visit: Yes Status: Chronic Priority: Medium Code(s): I10 - ESSENTIAL (PRIMARY) HYPERTENSION SNOMED Code(s): 81934453 Comment: -Improved control -Continue atenolol, norvasc, losartan and HCTZ today. -Continue to monitor (9) Anemia Current Visit: Yes Status: Acute Code(s): D64.9 - ANEMIA, UNSPECIFIED SNOMED Code(s): 594503481 Comment: -Iron studies reassuring---suggestive of AOCD -Folate and B12 levels normal -Methylmalonic acid pending (10) DVT prophylaxis Current Visit: Yes Status: Acute Code(s): SIM2610 - SNOMED Code(s): 521379303 Comment: -Continue Lovenox SQ Status and Disposition: -Possible D/C home in AM -[facility] will not open patient d/t living conditions and noncompliant. , She will be opened with adult protective services. Possibly tomorrow.
[2018-01-01] MEDS: Enoxaparin(*) 30 MG/0.3 ML SYR SUBCUT SCH (20:57)
[2018-01-01] MEDS: Senna TAB PO SCH (20:58)
[2018-01-02] MEDS ORDERED: Fluconazole 100 MG TAB* TAB PO ONE (01:06)
--- NOTE | 2018-01-02 01:07 | PN ---
Progress Note - Progress Note Date of Service: 01/02/18 Note: Patient c/o vaginal itching and has yeast infections in past, requiring diflucan. One time order of diflucan ordered.
[2018-01-02] MEDS: Melatonin 3 MG TAB PO PRN (01:08)
[2018-01-02] MEDS: Acetaminophen TAB* 325 MG PO PRN ×3 (01:08→13:40)
[2018-01-02] MEDS: Levothyroxine TAB* 100 MCG TAB PO SCH (05:22)
[2018-01-02] MEDS: Insulin LISPRO* 1 UNITS UNIT SUBCUT SCH ×5 (05:40→13:45)
[2018-01-02 06:36] LABS: Hematocrit 26 % (35-47); Hemoglobin 8.7 g/dl (12.0-16.0); Mean Corpuscular HGB Conc 34 g/dl (31-36); Mean Corpuscular Hemoglobin 29 pg (27-31); Mean Corpuscular Volume 86 fL (80-97); Mean Platelet Volume 7.9 um3 (7.4-10.4); Platelet Count 295 10^3/ul (150-450); Red Blood Count 2.99 10^6/ul (4.00-5.40); Red Cell Distribution Width 15 % (10.5-15); White Blood Count 10.2 10^3/ul (3.5-10.8)
[2018-01-02 06:47] LABS: EGFR Non-African American 27.7 (>60)
[2018-01-02 08:25] VITALS: BP 138/64
[2018-01-02] MEDS: Insulin GLARGINE(*) 1 UNITS UNIT SUBCUT SCH (08:28)
[2018-01-02] MEDS: Losartan TAB* 25 MG PO SCH (08:30)
[2018-01-02] MEDS: Atorvastatin* 40 MG TAB PO SCH (08:31)
[2018-01-02] MEDS: Aspirin EC TAB* 81 MG TAB.EC PO SCH (08:33)
[2018-01-02] MEDS: Hydrochlorothiazide TAB* 25 MG PO SCH (08:33)
[2018-01-02] MEDS: amLODIPine TAB* 5 MG PO SCH (08:33)
[2018-01-02] MEDS: Sertraline* 50 MG TAB PO SCH (08:34)
[2018-01-02] MEDS: Venlafaxine EXT RELEASE CAP* 75 MG PO SCH (08:36)
[2018-01-02] MEDS: Omeprazole CAP* 20 MG PO SCH (08:37)
[2018-01-02] MEDS: Atenolol TAB* 50 MG PO SCH (08:38)
[2018-01-02] MEDS: ceFUROXime TAB(*) 250 MG PO SCH (08:38)
[2018-01-02] MEDS: Fluticasone NASAL SPRAY 50MCG* 16 gm SPRAY BTL BOTH NARES SCH (09:53)
[2018-01-02] MEDS: Docusate CAP* 100 MG PO SCH (09:57)
[2018-01-02] MEDS ORDERED: Insulin LISPRO* 1 UNITS UNIT SUBCUT SCH (16:30)
[2018-01-02] MEDS ORDERED: Insulin GLARGINE(*) 1 UNITS UNIT SUBCUT SCH (21:00)
--- NOTE | 2018-01-03 01:21 | DS ---
CC: Dr. Preciado; Dr. Blane Sauceda; Dr. Zakia Zurita* DISCHARGE SUMMARY: DATE OF ADMISSION: 12/26/17 DATE OF DISCHARGE: 01/02/18 DISCHARGE DIAGNOSES: 1. Hyperosmolar hyperglycemia, resolved. 2. Uncontrolled diabetes, improved. 3. Constipation, resolved. 4. Hypothyroidism, noncompliant, elevated TSH with normal free T4 and FT3. 5. Urinary tract infection, improved. 6. History of pulmonary embolism, with history of subdural hematoma, currently on aspirin alone with full anticoagulation thought to be contraindicated by Dr. Zurita. 7. History of chronic kidney disease. 8. Anemia of chronic disease. DISCHARGE MEDICATIONS: As follows: 1. Tylenol 650 mg p.o. q.4 p.r.n. 2. Amlodipine 10 mg p.o. daily. 3. Aspirin 81 mg p.o. daily. 4. Atenolol 100 mg p.o. daily. 5. Atorvastatin 40 mg p.o. daily. 6. Cefuroxime 250 mg p.o. b.i.d. for 3 days. 7. Fluticasone nasal spray 250 mcg p.o. b.i.d. 8. Insulin lispro of 15 units subcu q.a.c. 9. Lantus 28 units subcu b.i.d. 10. Lactobacillus acidophilus 1 tab p.o. daily. 11. Levothyroxine 100 mcg p.o. daily. 12. Losartan/HCTZ 1 tab p.o. daily. 13. Melatonin 3 mg p.o. q.h.s. 14. Omeprazole 20 mg daily. 15. Polyethylene glycol 17 g p.o. q.48 hours p.r.n. 16. Senna Plus 2 tabs p.o. daily. 17. Sertraline 15 mg p.o. daily. 18. Simethicone 125 mg p.o. q.a.c. 19. Venlafaxine 150 mg p.o. daily. HISTORY OF PRESENT ILLNESS/HOSPITAL COURSE: The patient is a 72-year-old lady with a history of previous PE, was previously on Eliquis, and has not been on Eliquis since 2 to 3 months given her noncompliance and history of subdural hematoma confirmed with Dr. Zurita, her PCP; history of uncontrolled diabetes; CKD stage 3 and noncompliance, who presented with hyperosmolar hyperglycemia. She narrates a history that she had run out of insulin and tried to make a phone call, but did not realize that her phone line was not working at that time. She appeared confused on her initial presentation and may have been because of her medication noncompliance in the past. I have spoken in person on the phone with Dr. Zurita, her PCP, who confirms that the patient misses most of her appointments and I have also called her pharmacy who mentioned that she has just lost her prescription insurance. She has been referred to a social media designer throughout her hospitalizations stay and has been offered adult protective services, which she refused. During her hospital stay, she was otherwise pleasant and has a positive interaction with nursing staff as well as rest of the hospital staff. Her uncontrolled diabetes has improved and her history of PE was confirmed with Dr. Zurita that she should not be placed back on Eliquis due to her history of subdural hematoma in the past. She also was found to have an elevated TSH with normal free T4 and free T3, likely due to again noncompliance for at least 5 days where she had not taken her thyroid medications. Her Synthroid was therefore decreased from 200, which was initially increased to 225 mcg, back to 100 and was asked to repeat her TSH in 6 weeks. She was also found to have UTI and has been given antibiotics, and she will have remaining 3 days of antibiotic therapy after her discharge today. The night before her discharge, she complained of vaginal itching and was evaluated by Dr. Fournier, who diagnosed her with candidal vaginitis given her recent antibiotic exposure for her UTI and was given Diflucan where much of her vaginal symptoms have resolved. She had been advised to follow up and/or call her PCP within 3 days post- discharge, and if she is having problems and/or if her symptoms worsen, to call her PCP first if her concerns can be addressed in a timely manner. If not or if she had been advised to go to the ER because of scheduling issues alone, to call [facility] if deemed appropriate. She had been asked to be consistent in taking her scheduled medications to avoid forgetting them later and to set a designated time where it is most convenient for her to take them. She is to recheck her TSH in 6 weeks and discuss this with her PCP. If she finds, despite the changes made to her insulin, that her fingerstick blood/ sugars greater than or equal to 200, she had been advised to lower the amount of carbohydrate in her meals and then call her PCP, so she can further advice and/or adjust the dose. She had been advised to call my office regarding any questions, concerns, or further clarifications regarding her discharge plans and her prescriptions and to take her medications as prescribed. REVIEW OF SYSTEMS: The patient denied any recent headaches, dizziness, fevers, chills, nausea, vomiting, chest pain, shortness of breath, increased coughing or sputum production, abdominal pain, diarrhea, constipation, pain and/or increased frequency on urination, myalgias, arthralgias, throat pain or new skin lesions. The rest of the 14-point review of systems are otherwise unremarkable. PHYSICAL EXAMINATION: Shows the most recent vital signs of records with blood pressure of 138/64, 97.4 degrees Fahrenheit, 75 beats per minute heart rate, 16 per minute respiratory rate, saturating at 99% on room air. General Appearance : The patient is awake, alert, and oriented x3, not in acute distress. The patient is obese. HEENT: Normocephalic, atraumatic. PERRLA. Extraocular muscles intact. Negative for icterus. Moist oral mucosa. Negative throat erythema. Neck is soft, supple with no cervical lymphadenopathy. No JVD. Heart: S1, S2 within normal limits. Regular rate and rhythm. No murmurs, rubs , or gallops. Chest: Clear to auscultation bilaterally. Good air entry. No wheezes, rales, or rhonchi. Abdomen is soft, nondistended, nontender. Normoactive bowel sounds x4. Extremities: No cyanosis, clubbing, nor edema. Psychiatric: No active psychosis, depression, suicidal nor homicidal ideations. Skin is warm to touch. TIME SPENT: The total time spent evaluating the patient, reviewing pertinent data, and appropriate documentation is greater than 30 minutes. [id number]/CPS #: [id number]/CPS #: [id number] MTDD
--- NOTE | 2018-01-03 03:07 | DS ---
DISCHARGE SUMMARY: DATE OF ADMISSION: DATE OF DISCHARGE: 01/02/18 DISCHARGE DIAGNOSES: 1. Hyperosmolar hyperglycemia, resolved. 2. Uncontrolled diabetes, improved. 3. Constipation, resolved. 4. Hypothyroidism, noncompliant, elevated TSH with normal free T4 and FT3. 5. Urinary tract infection, improved. 6. History of pulmonary embolism, with history of subdural hematoma, currently on aspirin alone with full anticoagulation thought to be contraindicated by Dr. Zurita. 7. History of chronic kidney disease. 8. Anemia of chronic disease. DISCHARGE MEDICATIONS: As follows: 1. Tylenol 650 mg p.o. q.4 p.r.n. 2. Amlodipine 10 mg p.o. daily. 3. Aspirin 81 mg p.o. daily. 4. Atenolol 100 mg p.o. daily. 5. Atorvastatin 40 mg p.o. daily. 6. Cefuroxime 250 mg p.o. b.i.d. for 3 days. 7. Fluticasone nasal spray 250 mcg p.o. b.i.d. 8. Insulin lispro of 15 units subcu q.a.c. 9. Lantus 28 units subcu b.i.d. 10. Lactobacillus acidophilus 1 tab p.o. daily. 11. Levothyroxine 100 mcg p.o. daily. 12. Losartan/HCTZ 1 tab p.o. daily. 13. Melatonin 3 mg p.o. q.h.s. 14. Omeprazole 20 mg daily. 15. Polyethylene glycol 17 g p.o. q.48 hours p.r.n. 16. Senna Plus 2 tabs p.o. daily. 17. Sertraline 15 mg p.o. daily. 18. Simethicone 125 mg p.o. q.a.c. 19. Venlafaxine 150 mg p.o. daily. DICTATION ENDS ABRUPTLY HERE [id number]/[facility] #: [id number]
== END 2018-01-02 15:30 | disposition home or self-care (01) | DRG 638 ==
LOC: ED 17:05 → MEDTELE 20:14
PROVIDERS: ADMIT Hospitalist; ATTEND Student in an Organized Health Care Education/Training Program
DX: E11.65 Type 2 diabetes mellitus with hyperglycemia (principal); N39.0 Urinary tract infection, site not specified; E11.22 Type 2 diabetes mellitus with diabetic chronic kidney disease; I12.9 Hypertensive chronic kidney disease with stage 1 through stage 4 chronic kidney disease, or unspecified chronic kidney disease; N18.3 Chronic kidney disease, stage 3 (moderate); K59.00 Constipation, unspecified; E03.9 Hypothyroidism, unspecified; B96.20 Unspecified Escherichia coli [E. coli] as the cause of diseases classified elsewhere; D63.1 Anemia in chronic kidney disease; B37.3 Candidiasis of vulva and vagina; E66.9 Obesity, unspecified; F43.10 Post-traumatic stress disorder, unspecified; F32.9 Major depressive disorder, single episode, unspecified; K21.9 Gastro-esophageal reflux disease without esophagitis; G89.29 Other chronic pain; E78.5 Hyperlipidemia, unspecified; E11.319 Type 2 diabetes mellitus with unspecified diabetic retinopathy without macular edema; Z91.14 Patient's other noncompliance with medication regimen; Z79.4 Long term (current) use of insulin; Z68.35 Body mass index [BMI] 35.0-35.9, adult; Z79.899 Other long term (current) drug therapy; Z88.5 Allergy status to narcotic agent; Z86.711 Personal history of pulmonary embolism; Z88.8 Allergy status to other drugs, medicaments and biological substances; Z82.5 Family history of asthma and other chronic lower respiratory diseases; Z87.891 Personal history of nicotine dependence
CPT/HCPCS: 36415; 70450; 71045; 74019; 80048; 80053; 80061; 81003; 81015; 82270; 82272; 82607; 82728; 82746; 82947; 83036; 83540; 83550; 83605; 83630; 83721; 83735; 83921; 84100; 84439; 84443; 84481; 84484; 85025; 85027; 85610; 85730; 87040; 87077; 87086; 87186; 93005; 93306; 99284; A9270-GY; G8978-GP-CI; G8979-GP-CI; G8980-GP-CI; J0360; J0696; J1650; J3475

== ENCOUNTER 2018-01-05 18:00 | Emergency (ER) | payer BC, MEDICARE ==
[2018-01-05 20:30] LABS: ABS Basophils 0.1 10^3/ul (0-0.2); ABS Eosinophils 0.2 10^3/ul (0-0.6); ABS Lymphocytes 1.4 10^3/ul (1.0-4.8); ABS Monocytes 0.4 10^3/ul (0-0.8); ABS Neutrophils 7.4 10^3/ul (1.5-7.7); ABS Nucleated RBC 0 10^3/ul; Eosinophil % 2.5 % (0-6); Hematocrit 30 % (35-47); Lymphocyte % 14.7 % (25-47); Mean Corpuscular HGB Conc 33 g/dl (31-36); Mean Corpuscular Hemoglobin 29 pg (27-31); Mean Corpuscular Volume 86 fL (80-97); Mean Platelet Volume 7.4 um3 (7.4-10.4); Nucleated Red Blood Cells % 0; Platelet Count 450 10^3/ul (150-450); Red Cell Distribution Width 15 % (10.5-15); White Blood Count 9.5 10^3/ul (3.5-10.8)
[2018-01-05 20:47] LABS: EGFR Non-African American 24.6 (>60)
[2018-01-06] MEDS ORDERED: Insulin REGULAR(*) 1 UNITS UNIT SUBCUT ONE (00:27)
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
[2018-01-06 02:40] VITALS: BP 156/88
== END 2018-01-06 02:41 | disposition home or self-care (01) ==
LOC: ED 18:00
DX: E11.65 Type 2 diabetes mellitus with hyperglycemia (principal); Z88.5 Allergy status to narcotic agent; Z88.8 Allergy status to other drugs, medicaments and biological substances; Z87.891 Personal history of nicotine dependence
CPT/HCPCS: 36415; 80053; 85025; 96372; 99283

== ENCOUNTER 2018-03-17 05:51 | Inpatient (IN) | payer MEDICARE ==
[2018-03-17] MEDS ORDERED: NS 0.9% 1000 ML* 1,000 ML IV ONE (06:11)
[2018-03-17] MEDS ORDERED: Ondansetron INJ* 2 MG/ML VIAL IV ONE (06:22)
[2018-03-17] MEDS ORDERED: Ondansetron INJ* 2 MG/ML VIAL ONE (06:23)
[2018-03-17 06:29] LABS: ABS Basophils 0.1 10^3/ul (0-0.2); ABS Eosinophils 0 10^3/ul (0-0.6); ABS Lymphocytes 1.3 10^3/ul (1.0-4.8); ABS Monocytes 0.2 10^3/ul (0-0.8); ABS Neutrophils 8.2 10^3/ul (1.5-7.7); ABS Nucleated RBC 0 10^3/ul; Eosinophil % 0.2 % (0-6); Hematocrit 38 % (35-47); Hemoglobin 12.6 g/dl (12.0-16.0); Mean Corpuscular HGB Conc 33 g/dl (31-36); Mean Corpuscular Hemoglobin 29 pg (27-31); Mean Corpuscular Volume 88 fL (80-97); Mean Platelet Volume 7.6 um3 (7.4-10.4); Nucleated Red Blood Cells % 0; Platelet Count 396 10^3/ul (150-450); Red Blood Count 4.29 10^6/ul (4.00-5.40); Red Cell Distribution Width 15 % (10.5-15); White Blood Count 9.7 10^3/ul (3.5-10.8)
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
--- NOTE | 2018-03-17 07:14 | ED ---
Progress - Progress Note Progress Note: Patient was received as a sign out from Dr. Becerril to Dr. Oden at 0700 pending labs, CXR, and disposition. Bloodwork was obtained. CXR showed no active cardiopulmonary disease. This report was reviewed by ED physician. 0812 - Patient reports abdominal pain, weakness and diarrhea. Discussed plan of care with patient. 0816 - Dr. Chase was consulted on patient's case. Dr. Chase wants to wait on UA and asks for a abd/pel CT scan before acceptance UA obtained. CT ABD/PEL: 1. THERE ARE OCCASIONAL DIVERTICULA OF THE DISTAL COLON. THERE IS A SMALL AMOUNT OF PERICOLONIC INFLAMMATORY CHANGE WHICH MAY REFLECT ACUTE DIVERTICULITIS CORRECT CLINICAL SETTING. THERE IS NO LOCULATED FLUID COLLECTION TO SUGGEST ABSCESS. 2. THERE IS ATROPHY OF THE PANCREAS WITH A SOLID NODULE OF THE UNCINATE PROCESS MEASURING UP TO 1.5 CM IN SIZE. THE DIFFERENTIAL INCLUDES PANCREATIC NEOPLASM. THIS REPORT WAS REVIEWED BY ED PHYSICIAN. - EKG/XRAY/CT XRAY: chest Xray Comments: No active cardiopulmonary disease. This report was reviewed by ED physician Re-Evaluation - Re-Evaluation First Eval Re-Evaluation Time: 08:12 Comment: 0812 - Discussed plan of care with patient. Patient reports abdominal pain, weakness and diarrhea. Patient is agreeable with admission. Course/Dx - Course Course Of Treatment: Patient was received as a sign out from Dr. Becerril to Dr. Oden at 0700 03/17/18 pending labs, CXR, and disposition. Bloodwork was obtained. CXR showed no active cardiopulmonary disease. This report was reviewed by ED physician. 0812 - Patient reports abdominal pain, weakness and diarrhea. Discussed plan of care with patient. Patient is agreeable with admission. 0816 - Dr. Chase was consulted on patient's case. Dr. Chase agrees to accept pending UA and asks for a abd/pel CT scan. UA obtained. CT ABD/PEL: 1. THERE ARE OCCASIONAL DIVERTICULA OF THE DISTAL COLON. THERE IS A SMALL AMOUNT OF. PERICOLONIC INFLAMMATORY CHANGE WHICH MAY REFLECT ACUTE DIVERTICULITIS CORRECT CLINICAL. SETTING. THERE IS NO LOCULATED FLUID COLLECTION TO SUGGEST ABSCESS. 2. THERE IS ATROPHY OF THE PANCREAS WITH A SOLID NODULE OF THE UNCINATE PROCESS MEASURING. UP TO 1.5 CM IN SIZE. THE DIFFERENTIAL INCLUDES PANCREATIC NEOPLASM. THIS REPORT WAS REVIEWED BY ED PHYSICIAN. Dr. Chase accepted patient for admission. Dx of hypothermia, sepsis, diarrhea, pancreatic mass, diverticulitis. - Diagnoses Provider Diagnoses: Hypothermia, Sepsis, Diarrhea, Diverticulitis, Pancreatic mass - Provider Notifications Discussed Care Of Patient With: Odalys Chase Time Discussed With Above Provider: 08:16 Instructed by Provider To: Other - 0816 - Dr. Chase was consulted on patient's case. Dr. Chase agrees to accept pending UA and asks for a abd/pel CT scan. Discharge - Sign-Out/Discharge Documenting (check all that apply): Patient Departure - admit - Discharge Plan Condition: Good Disposition: ADMITTED TO [facility] Referrals: Zakia Zurita MD [Primary Care Provider] - - Billing Disposition and Condition Condition: GOOD Disposition: Admitted to [facility] - Attestation Statements Document Initiated by Scribe: Yes Documenting Scribe: Stanley Goff Provider For Whom Scribe is Documenting (Include Credential): Aaron Oden MD Scribe Attestation: Stanley Lopes scribed for Aaron Oden MD on 03/17/18 at 1221. Scribe Documentation Reviewed: Yes Provider Attestation: The documentation as recorded by the Stanley khan accurately reflects the service I personally performed and the decisions made by Aaron funez MD
[2018-03-17 07:38] LABS: EGFR Non-African American 26.3 (>60)
--- NOTE | 2018-03-17 07:55 | RAD ---
Indication: Hypothermia. Single frontal view of the chest performed at 0705 hours was reviewed. Comparison is made with previous exam dated December 26, 2017. No mediastinal shift is noted. Heart is of normal size and configuration. Lung hannon appear clear. IMPRESSION: NO ACTIVE CARDIOPULMONARY DISEASE IS NOTED. R1NF
[2018-03-17 09:12] LABS: Urine Appearance Cloudy; Urine Blood Negative (Negative); Urine Color Yellow; Urine Ketones 1+ (Negative); Urine Protein 3+(>=500 mg/dL) (Negative); Urine Red Blood Cell 1+(3-5/hpf) (Absent); Urine Urobilinogen Negative (Negative); Urine White Blood Cell 3+(>20/hpf) (Absent)
[2018-03-17] MEDS ORDERED: Piperacillin/Tazobac ADVAN(*) 3.375 GM in NS 0.9% 100 ML* 100 ML IVPB ONE ×2 (09:19→11:06)
--- NOTE | 2018-03-17 09:34 | RAD ---
CLINICAL HISTORY: abd pain/diverticulitis COMPARISON: May 03, 2017 TECHNIQUE: Multiple contiguous axial CT scans were obtained of the abdomen and pelvis, without intravenous contrast enhancement. Coronal and sagittal multiplanar reformations are submitted for review. Oral contrast was not administered. FINDINGS: LUNG BASES: The lung bases are clear. LIVER: The liver is normal in shape, size, contour, and attenuation. BILE DUCTS: There is no intrahepatic or extrahepatic biliary dilatation. GALLBLADDER: The gallbladder is not visualized. Surgical clips are noted in the gallbladder fossa. PANCREAS: There is fatty atrophy of the pancreas. There is a nodule of the uncinate process is seen on axial image 32 measuring 1.5 x 0.9 cm transversely. SPLEEN: Normal in size and appearance. UPPER GI TRACT: Evaluation of the gastrointestinal tract is limited by incomplete gastric distention. There is a diverticulum of the second stage of the duodenum measuring approximately 2 cm in size. A pill fragment is noted within the diverticulum. SMALL BOWEL AND MESENTERY: The small bowel is normal in contour, course, and caliber. There is no obstruction or dilatation. COLON: There are scattered diverticula of the distal colon. There is mild inflammatory change along the sigmoid colon. ADRENALS: Normal bilaterally. KIDNEYS: The kidneys are normal in shape, size, contour, and axis. There is no hydronephrosis or nephrolithiasis. BLADDER: A Vallejo catheter is noted within the bladder. PELVIC ORGANS: The uterus and adnexa are grossly normal for technique. AORTA: The aorta is normal. IVC: Unremarkable LYMPH NODES: There is no lymphadenopathy by size criteria. ABDOMINAL WALL: There is no evidence for abdominal wall hernia. BONES AND SOFT TISSUES: Degenerative changes are noted. There is diffuse osteopenia. OTHER: None IMPRESSION: 1. THERE ARE OCCASIONAL DIVERTICULA OF THE DISTAL COLON. THERE IS A SMALL AMOUNT OF PERICOLONIC INFLAMMATORY CHANGE WHICH MAY REFLECT ACUTE DIVERTICULITIS CORRECT CLINICAL SETTING. THERE IS NO LOCULATED FLUID COLLECTION TO SUGGEST ABSCESS. 2. THERE IS ATROPHY OF THE PANCREAS WITH A SOLID NODULE OF THE UNCINATE PROCESS MEASURING UP TO 1.5 CM IN SIZE. THE DIFFERENTIAL INCLUDES PANCREATIC NEOPLASM.
[2018-03-17] MEDS ORDERED: Vancomycin(*) 1,250 MG IV x ONCE IVPB ONE ×2 (10:00)
[2018-03-17] MEDS ORDERED: Vancomycin(*) 1,000 MG VIAL IVPB SCH (10:00)
[2018-03-17] MEDS ORDERED: Al Hydrox/Mg Hydrox/Simet LIQ* 30 ML UDC PO PRN (11:06)
[2018-03-17] MEDS ORDERED: NS 0.9% 250 ML* 250 ML ONE (11:07)
[2018-03-17] MEDS ORDERED: Dextrose 50% Syringe 50 ML* 25 GM/50 ML SYRINGE IV PUSH PRN (11:35)
[2018-03-17] MEDS ORDERED: hydrALAZINE IV* 20 MG/ML VIAL IV SLOW PU PRN (11:35)
[2018-03-17] MEDS ORDERED: Enoxaparin(*) 30 MG/0.3 ML SYR SUBCUT SCH (12:00)
[2018-03-17] MEDS ORDERED: Zosyn per Pharmacy* NOTE FOLLOW UP SCH ×2 (12:00)
[2018-03-17] MEDS ORDERED: LACTATED RINGERS IV SCH (12:00)
[2018-03-17] MEDS ORDERED: Insulin GLARGINE(*) 1 UNITS UNIT SUBCUT SCH (12:00)
--- NOTE | 2018-03-17 16:29 | HP ---
AMENDED REPORT NOW INCLUDES DESIGNATED COSIGNER ADDENDUM NOW INCLUDED ON THIS REPORT CC: Dr. Zurita * HISTORY AND PHYSICAL: DATE OF ADMISSION: 03/17/18 PRIMARY CARE PROVIDER: Dr. Zurita. ATTENDING PHYSICIAN: Dr. Chase * (dictated by Destin Pastor, KENA). CHIEF COMPLAINT: Weakness. HISTORY OF PRESENT ILLNESS: Ms. Montemayor is a 72-year-old female patient. She carries a history of insulin-dependent type 2 diabetes, hypertension, kidney disease, depression, PTSD, breast cancer, history of pulmonary embolism, and history of subdural hematoma. The patient comes in today by ambulance after she woke at 0600 this morning and did not feel right. She states "I felt shaky , dizzy and weak." She initially called EMS complaining of diabetic problem. When they arrived, she was found to be cool to the touch, hypertensive, and reported delayed cap refill. They took her blood sugar, which was 118. She also informed them that she had been generally ill for 4 days with episodes of diarrhea. She explains to me that when she made the call to EMS she did feel that she was having hypoglycemia, so she ate a candy bar, but her symptoms continued, which included shaking, dizziness, weakness, and difficulty seeing. She recalls that over the last 4 days she has been "very cold despite heat at 70." In addition, she has had "extreme diarrhea." Reports approximately 4 BMs a day for the past 11 days, all of which are diarrhea as she has not had a solid stool in 11 days. She also reports occasional UTI symptoms such as burning with urination over the past several days. The patient reports she has had no recorded fever, but had felt chilled as previously mentioned. She denies chest pain, shortness of breath, nausea, vomiting, loss of consciousness , focal deficits, muscle pain, recent fall, or memory loss. While in the emergency department, a CT of the abd was completed, which revealed occasional diverticula of the distal colon with a small amount of pericolonic inflammation change, which may be reflective of acute diverticulitis. There is no loculated fluid collection to suggest abscess. Also, there was atrophy noted in the pancreas with solid nodule of the uncinate process measuring up to 1.5 cm in size. Differential includes pancreatic neoplasm. A Vallejo catheter was also placed and the patient's urine was noted to be positive for protein, ketones, leukocyte esterase, wbc's, rbc's, bacteria, and glucose. Therefore, we were consulted for possible admission. PAST MEDICAL HISTORY: 1. Insulin-dependent type 2 diabetes. 2. Pulmonary embolism approximately 2 years ago. No longer on anticoagulation therapy. 3. Stage 3 kidney disease. 4. Hypertension. 5. Depression. 6. PTSD. 7. Recurrent gastritis. 8. GERD. 9. Chronic pain. 10. Diabetic neuropathy. 11. History of C. diff. 12. Subdural hematoma, December 2016. 13. Breast cancer, right side, radiation in January 2010. PAST SURGICAL HISTORY: 1. Appendectomy. 2. Cholecystectomy. 3. Intestinal, tonsils. MEDICATIONS: Home medications according to list provided include: 1. Insulin 70/30, 28 units subcu b.i.d. 2. Probiotic 1 tab p.o. daily. 3. Flonase 2 sprays both nares daily. 4. Lipitor 40 mg p.o. daily. 5. Atenolol 100 mg p.o. daily. 6. Aspirin 81 mg p.o. daily. 7. Tylenol 650 mg p.o. q.4 p.r.n. 8. Norvasc 10 mg p.o. daily. 9. Effexor XR 150 mg p.o. daily. 10. Mylicon 125 mg p.o. a.c. p.r.n. 11. Zoloft 50 mg p.o. daily. 12. Senna-S tablet 2 each p.o. daily. 13. MiraLAX 17 g p.o. q.48 hours p.r.n. 14. Prilosec 20 mg p.o. daily. 15. Melatonin 3 mg p.o. at bedtime p.r.n. 16. Losartan/HCTZ 100/25 one tab p.o. daily. 17. Synthroid 100 mcg p.o. daily. ALLERGIES: HEPARIN - rash, HYDROCODONE - rash, METFORMIN - diarrhea. FAMILY HISTORY: Denies family history of CAD or CVAs. SOCIAL HISTORY: Lives alone. Quit smoking in 1983. Reports rare alcohol use. Reports occasional marijuana use, last use over a year ago. REVIEW OF SYSTEMS: Constitutional: The patient reports feeling chilled, but no recorded fevers. Denies unexplained weight loss. Cardiac: No chest pain. No edema. Respiratory: No cough. No hemoptysis. No shortness of breath. GI : No nausea, vomiting. Reports diarrhea and abdominal pain in lower quadrants. : Reports dysuria. No gross hematuria. Neuro: No focal weakness or sensory loss. Reports generalized weakness. Eyes: Currently, no visual complaints. Reports previous blurry vision. ENT: No sore throat, nasal congestion, or ear pain. Musculoskeletal: No muscle or joint pain. Skin : No rashes or lesions. Psych: No psychosis, anxiety, or depression. Denies SI. PHYSICAL EXAMINATION GENERAL: Ms. Montemayor is a 72-year-old female patient. She is obese. She is sitting in the ED stretcher. She does not appear to be in any acute distress. She is underneath a Bear Hugger for warmth. She is well nourished and well developed. She is somewhat a poor historian. VITAL SIGNS: Upon admission, the patient was hypothermic at 94 F. After being under the blanket warmer, she is now 97.7. BP 180/92, O2 sat 94%, RR 13, HR 82. HEENT: Head: Atraumatic. Eyes: Sclerae normal. Throat: Oral mucosa appears moist. NECK: Supple. LUNGS: Clear to auscultation bilaterally. No wheezes, rales, or rhonchi. HEART: S1, S2. Regular rate and rhythm. No murmurs, rubs, or gallops. ABDOMEN: Soft, flat, and nondistended. Bowel sounds are present. The patient reports tenderness to palpation of right lower quadrant and mild tenderness to left lower quadrant. EXTREMITIES: Pedal pulses +2. She is moving all 4 extremities with 5/5 strength. Scant peripheral edema noted. NEUROLOGICAL: She is awake, alert, and oriented x3. Speech is clear. Tongue is midline. No gross focal deficits. SKIN: Intact. DIAGNOSTIC STUDIES/LAB DATA: WBC 9.7, RBC 4.29, hemoglobin 12.6, hematocrit 38 , platelets 396. Sodium 139, potassium 4.0, chloride 106, carbon dioxide 18, anion gap 15, BUN 24, creatinine 1.87, glucose 188, lactic acid 2.3, calcium 9.3 , magnesium 2.0. AST 17, ALT 12, alk phos 127. Troponin 0.01. Protein 7.2. TSH 6.77. She did have a chest x-ray today. Impression: No active cardiopulmonary disease noted. The patient also had an EKG, which revealed prolonged QTc, normal QRS. Sinus rhythm at 71 BPM. She also had a CT abdomen and pelvis. Impression: There is an occasional diverticula of the distal colon. There is a small amount of pericolonic inflammation change, which may reflect acute diverticulitis in correct clinical setting. There is no loculated fluid collection to suggest abscess. There is atrophy of the pancreas with a solid nodule of the uncinate process measuring up to 1.5 cm in size. The differential includes pancreatic neoplasm. ASSESSMENT AND PLAN: Ms. Montemayor is a 72-year-old female with multiple medical problems, coming to the emergency department today with weakness, dizziness. We were asked to evaluate for admission. She will be admitted under inpatient status for: 1. SIRS criteria. Assessment: The patient was hypothermic at 94 F on presentation to the emergency room, also noted to be tachypneic with respiratory rate 24. Therefore, fluids normal saline 1000 mL given in the ED with additional 1400 of LR ordered to complete a bolus of 30 mL per kg. Zosyn and vanco administered in the ED. The patient was pancultured. Lactic acid will be repeated. 2. Diverticulitis. Zosyn will be continued per pharmacy protocol. The patient is placed on clear diet. The patient will be rehydrated as mentioned above and after bolus, will receive LR 75 mL per hour. 3. Diabetes. The patient is a poor historian. I am unsure if she is currently on 70/30 insulin or Lantus. Therefore, we will continue with Lantus while hospitalized, but her dose will be cut in half from 28 units b.i.d. to 14 units b.i.d. She will also be placed on a sliding scale with fingersticks a.c. Hemoglobin A1c ordered for tomorrow. The patient was also placed on a consistent carb diet. 4. Hypertension. The patient is currently hypertensive with SBP in 180s. We will continue Norvasc 10 mg daily. We will hold HCTZ 25 mg. We will continue losartan 100 mg. In addition, I have ordered hydralazine 5 mg IV p.r.n. hypertension. 5. Kidney disease. Creatinine currently 1.87. The patient will be rehydrated as mentioned above. HCTZ has been held. We will reassess creatinine tomorrow. 6. Depression. The patient denies suicidal ideation. We will continue meds as same from home. 7. Hypothyroid. TSH 6.77. Per nurse, the patient had not been able to afford medications; therefore, she has not been taking her thyroid medication. We will not adjust her Synthroid while hospitalized. This will be deferred to her primary care at discharge. 8. Recurrent gastritis/history of Clostridium difficile. Due to the patient's history of Clostridium difficile and report of diarrhea, stool cultures have been ordered. We will treat with vanco p.o. if positive for C. diff. We will also hold the patient's stool medications from home. 9. Gastroesophageal reflux disease. The patient denies symptoms at this time. Continue home medications as same. 10. History of pulmonary embolism. The patient is allergic to HEPARIN. Therefore, she will be placed on fondaparinux for DVT prophylaxis. She is placed at 50% lower dose due to creatinine clearance calculated at 38 mL per hour. 11. DVT prophylaxis: See above. 12. Pain. Tylenol ordered as needed. 13. Nausea. I am holding Zofran as the patient has prolonged QT. 14. Noncompliance. Per nurse's notes and discussion with nurse, the patient has not been able to take any of her medications besides her Zoloft and lispro due to inability to pay for medications. I have placed a social work consult for followup. 15. Code status: She is a full code. 16. Fluids, electrolytes, and nutrition: I am providing her with IV fluids per systemic inflammatory response syndrome criteria. I am also going to go ahead and put her on a consistent carb diet. 17. Healthcare proxy: The patient reports she does not have next of kin or healthcare proxy. She is estranged from her siblings and has no children or partner. TIME SPENT: On admission 60 minutes, greater than half of the time was spent face- to-face with the patient obtaining my history and physical, the other half time was spent going over plan of care with the patient and implementing my plan of care. I did discuss my plan with my attending, Dr. Chase, and she is in agreement. DESTIN PASTOR NP ADDENDUM: It should be noted on the patient's abdomen/pelvis CT today, there is atrophy of the pancreas with solid nodule of the uncinate process measuring up to 1.5 cm in size. The differential diagnosis includes pancreatic neoplasm. I spoke about this finding with the patient who mentions this has been seen before and she was told "not to worry." In reviewing the patient's previous CTs ranging from 11/13/15 to 05/03/17, there is mention of a nonspecific hypodense lesion in the anterior margin of the pancreatic head on several of these reports. I discussed with the patient possible further evaluation with MRI, inpatient or outpatient. I also discussed possible referral to a specialist if needed. We will discuss evaluation if needed of this finding once the patient is medically stable and improving from her current illnesses. DESTIN PASTOR NP [id number]/[facility] #: [id number]/[facility] #: [id number] AZAEL
[2018-03-17] MEDS: ZOSYN 3.375 GM Q8H per EXTENDED INFUSION IVPB SCH ×4 (16:55→23:53)
[2018-03-17] MEDS: Fondaparinux* 2.5 MG/0.5 ML SYRINGE SUBCUT SCH (16:57)
[2018-03-17] MEDS: Insulin LISPRO* 1 UNITS UNIT SUBCUT SCH (16:57)
[2018-03-17] MEDS: Insulin GLARGINE(*) 1 UNITS UNIT SUBCUT SCH ×2 (18:14→20:56)
--- NOTE | 2018-03-17 20:09 | HP ---
HISTORY AND PHYSICAL: ADDENDUM: It should be noted on the patient's abdomen/pelvis CT today, there is atrophy of the pancreas with solid nodule of the uncinate process measuring up to 1.5 cm in size. The differential diagnosis includes pancreatic neoplasm. I spoke about this finding with the patient who mentions this has been seen before and she was told "not to worry." In reviewing the patient's previous CTs ranging from 11/13/15 to 05/03/17, there is mention of a nonspecific hypodense lesion in the anterior margin of the pancreatic head on several of these reports. I discussed with the patient possible further evaluation with MRI, inpatient or outpatient. I also discussed possible referral to a specialist if needed. We will discuss evaluation if needed of this finding once the patient is medically stable and improving from her current illnesses. DESTIN PASTOR, KENA [id number]/[facility] #: [id number] AZAEL
[2018-03-17] MEDS ORDERED: Ondansetron INJ* 2 MG/ML VIAL IV PRN (20:36)
[2018-03-17] MEDS: Acetaminophen TAB* 325 MG PO PRN (21:01)
[2018-03-17] MEDS: Nystatin TOP POWDER* 15 GM BTL TOPICAL SCH (21:14)
[2018-03-18] MEDS: Melatonin 3 MG TAB PO PRN (00:41)
[2018-03-18] MEDS: ZOSYN 3.375 GM Q8H per EXTENDED INFUSION IVPB SCH ×6 (06:27→22:51)
[2018-03-18 06:49] LABS: ABS Basophils 0.1 10^3/ul (0-0.2); ABS Eosinophils 0.2 10^3/ul (0-0.6); ABS Lymphocytes 2.3 10^3/ul (1.0-4.8); ABS Monocytes 0.5 10^3/ul (0-0.8); ABS Neutrophils 5.6 10^3/ul (1.5-7.7); ABS Nucleated RBC 0 10^3/ul; Eosinophil % 2.3 % (0-6); Hematocrit 26 % (35-47); Hemoglobin 8.5 g/dl (12.0-16.0); Lymphocyte % 26.1 % (25-47); Mean Corpuscular HGB Conc 33 g/dl (31-36); Mean Corpuscular Hemoglobin 29 pg (27-31); Mean Corpuscular Volume 87 fL (80-97); Mean Platelet Volume 7.6 um3 (7.4-10.4); Nucleated Red Blood Cells % 0; Platelet Count 305 10^3/ul (150-450); Red Blood Count 2.95 10^6/ul (4.00-5.40); Red Cell Distribution Width 15 % (10.5-15); White Blood Count 8.7 10^3/ul (3.5-10.8)
[2018-03-18] MEDS: Levothyroxine TAB* 100 MCG TAB PO SCH (07:08)
[2018-03-18] MEDS: Omeprazole CAP* 20 MG PO SCH (07:08)
[2018-03-18] MEDS: Losartan TAB* 25 MG PO SCH (08:55)
[2018-03-18] MEDS: Atorvastatin* 40 MG TAB PO SCH (08:56)
[2018-03-18] MEDS: Lactobacillus Acidophilus* 1 TAB PO SCH (08:56)
[2018-03-18] MEDS: Atenolol TAB* 50 MG PO SCH (08:56)
[2018-03-18] MEDS: Venlafaxine EXT RELEASE CAP* 75 MG PO SCH (08:57)
[2018-03-18] MEDS: amLODIPine TAB* 5 MG PO SCH (08:58)
[2018-03-18] MEDS: Aspirin EC TAB* 81 MG TAB.EC PO SCH (08:59)
[2018-03-18] MEDS: Fluticasone NASAL SPRAY 50MCG* 16 gm SPRAY BTL BOTH NARES SCH (08:59)
[2018-03-18] MEDS: Nystatin TOP POWDER* 15 GM BTL TOPICAL SCH ×3 (08:59→22:52)
[2018-03-18] MEDS: Sertraline* 50 MG TAB PO SCH (08:59)
[2018-03-18] MEDS: Insulin LISPRO* 1 UNITS UNIT SUBCUT SCH ×3 (09:00→17:56)
[2018-03-18] MEDS: Insulin GLARGINE(*) 1 UNITS UNIT SUBCUT SCH ×2 (09:01→22:51)
[2018-03-18] MEDS: Fondaparinux* 2.5 MG/0.5 ML SYRINGE SUBCUT SCH ×2 (11:01→12:56)
[2018-03-18] MEDS ORDERED: Cefepime 1 GM in Dextrose(*) 1 GM/50 ML BAG IV SCH (13:00)
[2018-03-18] MEDS ORDERED: Ciprofloxacin 400MG IVPREMIX(* 400 MG/200 ML BAG IVPB SCH (14:00)
--- NOTE | 2018-03-18 14:06 | PN ---
Subjective Date of Service: 03/18/18 Interval History: Ms. Montemayor feels much better today. She is in good spirits. She was concerned yesterday d/t her low temp and chills on admission, though these have resolved. She reports low abd pain. She feels as though she has a vaginal yeast infection. She has had multiple days of vaginal itching and thick white discharge. Having less diarrhea than yesterday. She offers no other complaints. Denies CP, SOB, N/V, dizziness. Family History: Unchanged from Admission Social History: Unchanged from Admission Past Medical History: Unchanged from Admission Objective Active Medications: Acetaminophen (Tylenol Tab*) 650 mg PO Q4H PRN Al Hydrox/Mg Hydrox/Simethicone (Maalox Plus*) 30 ml PO Q6H PRN Amlodipine Besylate (Norvasc Tab*) 10 mg PO DAILY [facility] Aspirin (Aspirin Ec Tab*) 81 mg PO DAILY [facility] Atenolol (Tenormin Tab*) 100 mg PO DAILY [facility] Atorvastatin Calcium (Lipitor*) 40 mg PO DAILY [facility] Dextrose (D50w Syringe 50 Ml*) 12.5 gm IV PUSH .FOR FS < 60 - SS PRN Fluticasone Propionate (Flonase Nasal [place] 50mcg*) 2 spray BOTH NARES DAILY [facility] Fondaparinux (Arixtra*) 1.25 mg SUBCUT DAILY [facility] Hydralazine HCl (Apresoline Iv*) 5 mg IV SLOW PU Q6H PRN Piperacillin Sod/Tazobactam (Sod 3.375 gm/ Sodium Chloride) 100 mls @ 25 mls/ hr IVPB Q8H [facility] Insulin Glargine (Lantus(*)) 14 units SUBCUT BID [facility] Insulin Human Lispro (Humalog*) 0 units SUBCUT AC [facility]; Protocol Lactobacillus Rhamnosus (Lactobacillus Acidophilus*) 1 tab PO DAILY [facility] Levothyroxine Sodium (Synthroid Tab*) 100 mcg PO 0600 [facility] Losartan Potassium (Cozaar Tab*) 100 mg PO DAILY [facility] Melatonin (Melatonin) 3 mg PO BEDTIME PRN; Protocol Nystatin (Nystatin Top Powder*) 1 applic TOPICAL TID [facility] Omeprazole (Prilosec Cap*) 20 mg PO DAILY@0600 [facility] Pharmacy Consult (Zosyn Per Pharmacy*) 1 note FOLLOW UP .ZOSYN PER PHARMACY [facility] Sertraline HCl (Zoloft*) 50 mg PO DAILY [facility] Venlafaxine HCl (Effexor Xr Cap*) 150 mg PO DAILY [facility] Vital Signs - 8 hr 03/18/18 03/18/18 03/18/18 07:26 08:00 11:20 Temperature 98.4 F 97.9 F Pulse Rate 72 69 Respiratory 16 16 16 Rate Blood Pressure 136/61 124/57 (mmHg) O2 Sat by Pulse 96 98 Oximetry Oxygen Devices in Use Now: None Appearance: Elderly female laying in bed in NAD Eyes: No Scleral Icterus Ears/Nose/Mouth/Throat: Mucous Membranes Moist Neck: NL Appearance and Movements; NL JVP Respiratory: Symmetrical Chest Expansion and Respiratory Effort, Clear to Auscultation Cardiovascular: NL Sounds; No Murmurs; No JVD, RRR Abdominal: - - Tender to LLQ and RLQ on palpation Extremities: No Edema Skin: No Nodules or Sclerosis Neurological: Alert and Oriented x 3 Lines/Tubes/Other Access: Clean, Dry and Intact Peripheral IV Nutrition: Taking PO's Result Diagrams: 03/18/18 06:29 03/18/18 06:29 Assess/Plan/Problems-Billing Assessment: Ms. Montemayor is a 72yo with PMH of DM2, PE, CKD stage 3, HTN, chronic pain, and cdiff who presented with c/o generalized weakness and was found on CT to have diverticulitis. - Patient Problems (1) Diverticulitis Current Visit: Yes Status: Acute Priority: High Code(s): K57.92 - DVTRCLI OF INTEST, PART UNSP, W/O PERF OR ABSCESS W/O BLEED SNOMED Code(s): 262517467 Comment: - CT abd/pelvis shows acute diverticulitis - Negative for cdiff - Advance diet d/t clinical improvement - Continue zosyn (2) UTI (urinary tract infection) Current Visit: Yes Status: Acute Priority: High Comment: - Urine culture grew enterobacter aerogenes - Remove lara and check PVR - Continue zosyn until sensitivies obtained (3) HTN (hypertension) Current Visit: Yes Status: Chronic Priority: Medium Code(s): I10 - ESSENTIAL (PRIMARY) HYPERTENSION SNOMED Code(s): 14701783 Comment: - Improved, now normotensive - Hold HCTZ - Continue atenolol, norvasc, losartan (4) Diabetes mellitus, type 2 Current Visit: Yes Status: Chronic Priority: Medium Comment: - A1C 11.5%; d/t noncompliance with medications - Continue lispro SS and half dose of home glargine (5) CKD (chronic kidney disease) stage 3, GFR 30-59 ml/min Current Visit: Yes Status: Chronic Priority: Medium Code(s): N18.3 - CHRONIC KIDNEY DISEASE, STAGE 3 (MODERATE) SNOMED Code(s): 598268345 Comment: - Creatinine at baseline (6) Hypothyroidism Current Visit: Yes Status: Chronic Priority: Medium Code(s): E03.9 - HYPOTHYROIDISM, UNSPECIFIED SNOMED Code(s): 16776891 Comment: - TSH 6.77; likely d/t noncompliance - Will need to address with PCP after d/c (7) Depression Current Visit: Yes Status: Chronic Priority: Medium Code(s): F32.9 - MAJOR DEPRESSIVE DISORDER, SINGLE EPISODE, UNSPECIFIED SNOMED Code(s): 69746064 Comment: - Continue Effexor and Zoloft (8) Pancreatic mass Current Visit: Yes Status: Chronic Priority: Low Comment: - Present on CT since at least 2015 without significant change (9) Full code status Current Visit: Yes Status: Acute Priority: High Code(s): Z78.9 - OTHER SPECIFIED HEALTH STATUS SNOMED Code(s): 240256620 (10) DVT prophylaxis Current Visit: Yes Status: Acute Priority: High Code(s): ONP8088 - SNOMED Code(s): 040706565 Comment: - Continue fondaparinux renal dosing (heparin allergy) Status and Disposition: Inpatient. Anticipate d/c home when medically stable.
[2018-03-18] MEDS ORDERED: Potassium Chlor TAB* 20 MEQ TAB.ER PO ONE (17:08)
[2018-03-19 06:35] LABS: ABS Basophils 0.1 10^3/ul (0-0.2); ABS Eosinophils 0.3 10^3/ul (0-0.6); ABS Lymphocytes 2.3 10^3/ul (1.0-4.8); ABS Monocytes 0.5 10^3/ul (0-0.8); ABS Neutrophils 5.2 10^3/ul (1.5-7.7); ABS Nucleated RBC 0 10^3/ul; Eosinophil % 3.7 % (0-6); Hematocrit 27 % (35-47); Hemoglobin 8.7 g/dl (12.0-16.0); Mean Corpuscular HGB Conc 32 g/dl (31-36); Mean Corpuscular Hemoglobin 28 pg (27-31); Mean Corpuscular Volume 88 fL (80-97); Mean Platelet Volume 7.8 um3 (7.4-10.4); Nucleated Red Blood Cells % 0; Platelet Count 324 10^3/ul (150-450); Red Blood Count 3.07 10^6/ul (4.00-5.40); Red Cell Distribution Width 15 % (10.5-15); White Blood Count 8.4 10^3/ul (3.5-10.8)
[2018-03-19 06:43] LABS: EGFR Non-African American 25.4 (>60)
[2018-03-19] MEDS: Levothyroxine TAB* 100 MCG TAB PO SCH (07:11)
[2018-03-19] MEDS: ZOSYN 3.375 GM Q8H per EXTENDED INFUSION IVPB SCH ×6 (07:11→21:10)
[2018-03-19] MEDS: Omeprazole CAP* 20 MG PO SCH (07:21)
[2018-03-19] MEDS: Lactobacillus Acidophilus* 1 TAB PO SCH (09:55)
[2018-03-19] MEDS: Atorvastatin* 40 MG TAB PO SCH (09:55)
[2018-03-19] MEDS: Losartan TAB* 25 MG PO SCH (09:55)
[2018-03-19] MEDS: amLODIPine TAB* 5 MG PO SCH (09:56)
[2018-03-19] MEDS: Venlafaxine EXT RELEASE CAP* 75 MG PO SCH (09:56)
[2018-03-19] MEDS: Atenolol TAB* 50 MG PO SCH (09:56)
[2018-03-19] MEDS: Sertraline* 50 MG TAB PO SCH (09:57)
[2018-03-19] MEDS: Insulin LISPRO* 1 UNITS UNIT SUBCUT SCH ×3 (09:57→17:53)
[2018-03-19] MEDS: Fluticasone NASAL SPRAY 50MCG* 16 gm SPRAY BTL BOTH NARES SCH (09:57)
[2018-03-19] MEDS: Aspirin EC TAB* 81 MG TAB.EC PO SCH (09:57)
[2018-03-19] MEDS: Insulin GLARGINE(*) 1 UNITS UNIT SUBCUT SCH ×2 (09:58→21:09)
[2018-03-19] MEDS: Nystatin TOP POWDER* 15 GM BTL TOPICAL SCH ×3 (10:00→21:10)
[2018-03-19] MEDS: Fondaparinux* 2.5 MG/0.5 ML SYRINGE SUBCUT SCH ×2 (10:50→13:07)
[2018-03-19] MEDS ORDERED: Fluconazole 100 MG TAB* TAB PO ONE (10:50)
--- NOTE | 2018-03-19 11:06 | PN ---
Subjective Date of Service: 03/19/18 Interval History: Ms. Montemayor feels better today. She reported having some diarrhea after dinner last night, but has not had any diarrhea after eating a regular breakfast this morning. She is quite tired today and reports not sleeping well last night. She continues to c/o vaginal itching and white discharge. She denies CP, SOB, N/V, dizziness. Has been up ambulating to the bathroom with assistance. Family History: Unchanged from Admission Social History: Unchanged from Admission Past Medical History: Unchanged from Admission Objective Active Medications: Acetaminophen (Tylenol Tab*) 650 mg PO Q4H PRN Al Hydrox/Mg Hydrox/Simethicone (Maalox Plus*) 30 ml PO Q6H PRN Amlodipine Besylate (Norvasc Tab*) 10 mg PO DAILY [facility] Aspirin (Aspirin Ec Tab*) 81 mg PO DAILY [facility] Atenolol (Tenormin Tab*) 100 mg PO DAILY [facility] Atorvastatin Calcium (Lipitor*) 40 mg PO DAILY [facility] Dextrose (D50w Syringe 50 Ml*) 12.5 gm IV PUSH .FOR FS < 60 - SS PRN Fluconazole (Diflucan 100 Mg Tab*) 150 mg PO ONCE ONE Fluticasone Propionate (Flonase Nasal [place] 50mcg*) 2 spray BOTH NARES DAILY [facility] Fondaparinux (Arixtra*) 1.25 mg SUBCUT DAILY [facility] Piperacillin Sod/Tazobactam (Sod 3.375 gm/ Sodium Chloride) 100 mls @ 25 mls/ hr IVPB Q8H [facility] Insulin Glargine (Lantus(*)) 14 units SUBCUT BID [facility] Insulin Human Lispro (Humalog*) 0 units SUBCUT AC [facility]; Protocol Lactobacillus Rhamnosus (Lactobacillus Acidophilus*) 1 tab PO DAILY [facility] Levothyroxine Sodium (Synthroid Tab*) 100 mcg PO 0600 [facility] Losartan Potassium (Cozaar Tab*) 100 mg PO DAILY [facility] Melatonin (Melatonin) 3 mg PO BEDTIME PRN; Protocol Nystatin (Nystatin Top Powder*) 1 applic TOPICAL TID [facility] Omeprazole (Prilosec Cap*) 20 mg PO DAILY@0600 [facility] Pharmacy Consult (Zosyn Per Pharmacy*) 1 note FOLLOW UP .ZOSYN PER PHARMACY [facility] Sertraline HCl (Zoloft*) 50 mg PO DAILY [facility] Venlafaxine HCl (Effexor Xr Cap*) 150 mg PO DAILY [facility] Vital Signs - 8 hr 03/19/18 03/19/18 04:00 07:47 Temperature 98.7 F 98.1 F Pulse Rate 77 73 Respiratory 17 16 Rate Blood Pressure 130/59 159/65 (mmHg) O2 Sat by Pulse 99 Oximetry Oxygen Devices in Use Now: None Appearance: Elderly female laying in bed in NAD Eyes: No Scleral Icterus Ears/Nose/Mouth/Throat: Mucous Membranes Moist Neck: NL Appearance and Movements; NL JVP Respiratory: Symmetrical Chest Expansion and Respiratory Effort, Clear to Auscultation Cardiovascular: NL Sounds; No Murmurs; No JVD, RRR Abdominal: NL Sounds; No Tenderness; No Distention Extremities: No Edema Skin: No Rash or Ulcers Neurological: Alert and Oriented x 3 Lines/Tubes/Other Access: Clean, Dry and Intact Peripheral IV Nutrition: Taking PO's Result Diagrams: 03/19/18 06:03 03/19/18 06:03 Assess/Plan/Problems-Billing Assessment: Ms. Montemayor is a 72yo with PMH of DM2, PE, CKD stage 3, HTN, chronic pain, and cdiff who presented with c/o generalized weakness and was found on CT to have diverticulitis. - Patient Problems (1) Diverticulitis Current Visit: Yes Status: Acute Priority: High Code(s): K57.92 - DVTRCLI OF INTEST, PART UNSP, W/O PERF OR ABSCESS W/O BLEED SNOMED Code(s): 375999507 Comment: - CT abd/pelvis shows acute diverticulitis - Negative for cdiff - Continue soft diet - Continue zosyn (2) UTI (urinary tract infection) Current Visit: Yes Status: Acute Priority: High Comment: - Urine culture grew enterobacter aerogenes - Continue zosyn (3) Vulvovaginal candidiasis Current Visit: Yes Status: Acute Priority: High Code(s): B37.3 - CANDIDIASIS OF VULVA AND VAGINA SNOMED Code(s): 59554427 Comment: - Based on clinical presentation - Fluconazole x1 (4) HTN (hypertension) Current Visit: Yes Status: Chronic Priority: Medium Code(s): I10 - ESSENTIAL (PRIMARY) HYPERTENSION SNOMED Code(s): 72197136 Comment: - Improved, now normotensive - Hold HCTZ - Continue atenolol, norvasc, losartan (5) Diabetes mellitus, type 2 Current Visit: Yes Status: Chronic Priority: Medium Comment: - A1C 11.5%; d/t noncompliance with medications - Continue lispro SS and half dose of home glargine (6) CKD (chronic kidney disease) stage 3, GFR 30-59 ml/min Current Visit: Yes Status: Chronic Priority: Medium Code(s): N18.3 - CHRONIC KIDNEY DISEASE, STAGE 3 (MODERATE) SNOMED Code(s): 402073538 Comment: - Creatinine at baseline (7) Hypothyroidism Current Visit: Yes Status: Chronic Priority: Medium Code(s): E03.9 - HYPOTHYROIDISM, UNSPECIFIED SNOMED Code(s): 77526438 Comment: - TSH 6.77; likely d/t noncompliance - Will need to address with PCP after d/c (8) Depression Current Visit: Yes Status: Chronic Priority: Medium Code(s): F32.9 - MAJOR DEPRESSIVE DISORDER, SINGLE EPISODE, UNSPECIFIED SNOMED Code(s): 30698749 Comment: - Continue Effexor and Zoloft (9) Pancreatic mass Current Visit: Yes Status: Chronic Priority: Low Comment: - Present on CT since at least 2015 without significant change (10) Full code status Current Visit: Yes Status: Acute Priority: High Code(s): Z78.9 - OTHER SPECIFIED HEALTH STATUS SNOMED Code(s): 940630091 (11) DVT prophylaxis Current Visit: Yes Status: Acute Priority: High Code(s): BNB5755 - SNOMED Code(s): 432814796 Comment: - Continue fondaparinux renal dosing (heparin allergy) Status and Disposition: Inpatient. Needs social work consult as she cannot afford her medications. Anticipate d/c home vs [facility] when medically stable.
[2018-03-20] MEDS: Acetaminophen TAB* 325 MG PO PRN ×2 (00:41→06:18)
[2018-03-20] MEDS: Omeprazole CAP* 20 MG PO SCH (05:38)
[2018-03-20] MEDS: Levothyroxine TAB* 100 MCG TAB PO SCH (05:38)
[2018-03-20] MEDS: ZOSYN 3.375 GM Q8H per EXTENDED INFUSION IVPB SCH ×4 (05:41→15:14)
--- NOTE | 2018-03-20 08:40 | PN ---
Subjective Date of Service: 03/20/18 Interval History: Resting in bed. Denies pain. Reports she feels better. No nausea, vomiting, cp, sob, or abd pain. Tolerated PO well. Reports she did not cancel her rx coverage, but instead the letter was misplaced and it was the insurance companies issue. She continues to explain that she plans to sign up if she can, but the coverage will not start until 05/23. 12 point ROS completed and negative. Family History: Unchanged from Admission Social History: Unchanged from Admission Past Medical History: Unchanged from Admission Objective Active Medications: Acetaminophen (Tylenol Tab*) 650 mg PO Q4H PRN PRN Reason: FEVER/PAIN Last Admin: 03/20/18 06:18 Dose: 650 mg Al Hydrox/Mg Hydrox/Simethicone (Maalox Plus*) 30 ml PO Q6H PRN PRN Reason: INDIGESTION Amlodipine Besylate (Norvasc Tab*) 10 mg PO DAILY [facility] Last Admin: 03/19/18 09:56 Dose: 10 mg Aspirin (Aspirin Ec Tab*) 81 mg PO DAILY [facility] Last Admin: 03/19/18 09:57 Dose: 81 mg Atenolol (Tenormin Tab*) 100 mg PO DAILY [facility] Last Admin: 03/19/18 09:56 Dose: 100 mg Atorvastatin Calcium (Lipitor*) 40 mg PO DAILY [facility] Last Admin: 03/19/18 09:55 Dose: 40 mg Dextrose (D50w Syringe 50 Ml*) 12.5 gm IV PUSH .FOR FS < 60 - SS PRN PRN Reason: FS < 60 Fluticasone Propionate (Flonase Nasal [place] 50mcg*) 2 spray BOTH NARES DAILY [facility] Last Admin: 03/19/18 09:57 Dose: 2 spray Fondaparinux (Arixtra*) 1.25 mg SUBCUT DAILY [facility] Last Admin: 03/19/18 13:07 Dose: 1.25 mg Piperacillin Sod/Tazobactam (Sod 3.375 gm/ Sodium Chloride) 100 mls @ 25 mls/ hr IVPB Q8H [facility] Last Admin: 03/20/18 05:41 Dose: 25 mls/hr Insulin Glargine (Lantus(*)) 14 units SUBCUT BID [facility] Last Admin: 03/19/18 21:09 Dose: 14 units Insulin Human Lispro (Humalog*) 0 units SUBCUT AC [facility]; Protocol Last Admin: 03/19/18 17:53 Dose: 3 units Lactobacillus Rhamnosus (Lactobacillus Acidophilus*) 1 tab PO DAILY [facility] Last Admin: 03/19/18 09:55 Dose: 1 tab Levothyroxine Sodium (Synthroid Tab*) 100 mcg PO 0600 [facility] Last Admin: 03/20/18 05:38 Dose: 100 mcg Losartan Potassium (Cozaar Tab*) 100 mg PO DAILY [facility] Last Admin: 03/19/18 09:55 Dose: 100 mg Melatonin (Melatonin) 3 mg PO BEDTIME PRN; Protocol PRN Reason: Sleep Last Admin: 03/18/18 00:41 Dose: 3 mg Nystatin (Nystatin Top Powder*) 1 applic TOPICAL TID [facility] Last Admin: 03/19/18 21:10 Dose: 1 applic Omeprazole (Prilosec Cap*) 20 mg PO DAILY@0600 [facility] Last Admin: 03/20/18 05:38 Dose: 20 mg Pharmacy Consult (Zosyn Per Pharmacy*) 1 note FOLLOW UP .ZOSYN PER PHARMACY [facility] Sertraline HCl (Zoloft*) 50 mg PO DAILY [facility] Last Admin: 03/19/18 09:57 Dose: 50 mg Venlafaxine HCl (Effexor Xr Cap*) 150 mg PO DAILY [facility] Last Admin: 03/19/18 09:56 Dose: 150 mg Vital Signs - 8 hr 03/20/18 03:15 Temperature 97.7 F Pulse Rate 73 Respiratory 16 Rate Blood Pressure 138/60 (mmHg) O2 Sat by Pulse 96 Oximetry Oxygen Devices in Use Now: None Appearance: Comfortable, NAD Eyes: No Scleral Icterus Ears/Nose/Mouth/Throat: Clear Oropharnyx, Mucous Membranes Moist Neck: NL Appearance and Movements; NL JVP Respiratory: Symmetrical Chest Expansion and Respiratory Effort, Clear to Auscultation Cardiovascular: NL Sounds; No Murmurs; No JVD, RRR Abdominal: NL Sounds; No Tenderness; No Distention Lymphatic: No Cervical Adenopathy Result Diagrams: 03/20/18 09:07 03/20/18 09:06 Additional Lab and Data: . Microbiology and Other Data: Microbiology 03/17/18 08:46 Urine Culture - Final Urine Enterobacter Aerogenes 03/17/18 06:46 Aerobic Blood Culture - Preliminary Blood Line No Growth Day 2 Anaerobic Blood Culture - Preliminary No Growth Day 2 03/17/18 06:17 Aerobic Blood Culture - Preliminary Blood Line No Growth Day 2 Anaerobic Blood Culture - Preliminary No Growth Day 2 03/17/18 18:30 Stool Gross Appearance - Final Stool C. difficile DNA Amplification - Final 027 Presumptive NEGATIVE Toxigenic C.diff NEGATIVE 03/17/18 18:30 Stool Occult Blood (ANGELA) - Final Stool Assess/Plan/Problems-Billing Assessment: Ms. Montemayor is a 72yo with PMH of DM2, PE, CKD stage 3, HTN, chronic pain, and cdiff who presented with c/o generalized weakness and was found on CT to have diverticulitis. - Patient Problems (1) Diverticulitis Comment: - Tolerating diet well. - Change to Cipro/Flagyl PO. Discontinue Zosyn (2) UTI (urinary tract infection) Comment: - Urine sensitivity reveals Cipro sensitive. Cipro ordered. (3) Vulvovaginal candidiasis Comment: - Based on clinical presentation - Fluconazole x1 (4) CKD (chronic kidney disease) stage 3, GFR 30-59 ml/min Comment: - Creatinine trending up, but still near patient's baseline. I suspected this is due to dehydration. Discussed increasing PO fluids. NS ordered at 75ml/hr for one liter. - BMP ordered for tomorrow (5) Diabetes mellitus, type 2 Comment: - A1C 11.5%; d/t noncompliance with medications - Fasting BG trending up and in 200s, therefore lantus increased from 14 units BID to 16 units BID - Continue lispro SS - Possible endocrine consult (6) HTN (hypertension) Comment: - Improved, now normotensive - Hold HCTZ - Continue atenolol, norvasc, losartan (7) Hypothyroidism Comment: - TSH 6.77; likely d/t noncompliance - Will need to address with PCP after d/c (8) Pancreatic mass Comment: - Present on CT since at least 2016 without significant change (9) Depression Comment: - Continue Effexor and Zoloft (10) DVT prophylaxis Comment: - Continue fondaparinux renal dosing (heparin allergy) (11) Full code status Status and Disposition: Inpatient. Needs social work consult as she cannot afford her medications. Anticipate d/c home vs [facility] when medically stable. Attending: Dario Mcwilliams
[2018-03-20 09:20] LABS: ABS Basophils 0.1 10^3/ul (0-0.2); ABS Eosinophils 0.3 10^3/ul (0-0.6); ABS Lymphocytes 1.6 10^3/ul (1.0-4.8); ABS Monocytes 0.4 10^3/ul (0-0.8); ABS Neutrophils 6.6 10^3/ul (1.5-7.7); ABS Nucleated RBC 0 10^3/ul; Eosinophil % 3.8 % (0-6); Hematocrit 28 % (35-47); Hemoglobin 9.3 g/dl (12.0-16.0); Lymphocyte % 17.6 % (25-47); Mean Corpuscular HGB Conc 34 g/dl (31-36); Mean Corpuscular Hemoglobin 29 pg (27-31); Mean Corpuscular Volume 88 fL (80-97); Mean Platelet Volume 7.5 um3 (7.4-10.4); Nucleated Red Blood Cells % 0.1; Platelet Count 326 10^3/ul (150-450); Red Blood Count 3.17 10^6/ul (4.00-5.40); Red Cell Distribution Width 16 % (10.5-15)
[2018-03-20 09:37] LABS: EGFR Non-African American 23.1 (>60)
[2018-03-20] MEDS: Insulin GLARGINE(*) 1 UNITS UNIT SUBCUT SCH ×2 (10:48→22:15)
[2018-03-20] MEDS: Insulin LISPRO* 1 UNITS UNIT SUBCUT SCH ×3 (10:48→18:09)
[2018-03-20] MEDS: Sertraline* 50 MG TAB PO SCH (10:50)
[2018-03-20] MEDS: Venlafaxine EXT RELEASE CAP* 75 MG PO SCH (10:50)
[2018-03-20] MEDS: Losartan TAB* 25 MG PO SCH (10:51)
[2018-03-20] MEDS: Aspirin EC TAB* 81 MG TAB.EC PO SCH (10:52)
[2018-03-20] MEDS: amLODIPine TAB* 5 MG PO SCH (10:52)
[2018-03-20] MEDS: Lactobacillus Acidophilus* 1 TAB PO SCH (10:52)
[2018-03-20] MEDS: Atorvastatin* 40 MG TAB PO SCH (10:52)
[2018-03-20] MEDS: Atenolol TAB* 50 MG PO SCH (11:01)
[2018-03-20] MEDS: Fluticasone NASAL SPRAY 50MCG* 16 gm SPRAY BTL BOTH NARES SCH (11:04)
[2018-03-20] MEDS: Fondaparinux* 2.5 MG/0.5 ML SYRINGE SUBCUT SCH (11:05)
[2018-03-20] MEDS: Nystatin TOP POWDER* 15 GM BTL TOPICAL SCH ×3 (11:09→22:17)
[2018-03-20] MEDS ORDERED: NS 0.9% 1000 ML* 1,000 ML IV SCH (15:45)
[2018-03-20] MEDS: Ciprofloxacin TAB* 500 MG PO SCH (22:13)
[2018-03-20] MEDS: Melatonin 3 MG TAB PO PRN (22:14)
[2018-03-20] MEDS: metroNIDAZOLE TAB* 250 MG PO SCH (22:14)
[2018-03-21] MEDS: Omeprazole CAP* 20 MG PO SCH (06:04)
[2018-03-21] MEDS: Levothyroxine TAB* 100 MCG TAB PO SCH (06:04)
[2018-03-21 07:54] LABS: ABS Basophils 0.1 10^3/ul (0-0.2); ABS Eosinophils 0.3 10^3/ul (0-0.6); ABS Lymphocytes 1.6 10^3/ul (1.0-4.8); ABS Monocytes 0.5 10^3/ul (0-0.8); ABS Neutrophils 6.7 10^3/ul (1.5-7.7); ABS Nucleated RBC 0 10^3/ul; Eosinophil % 3.6 % (0-6); Hematocrit 26 % (35-47); Hemoglobin 8.7 g/dl (12.0-16.0); Lymphocyte % 17.1 % (25-47); Mean Corpuscular HGB Conc 33 g/dl (31-36); Mean Corpuscular Hemoglobin 29 pg (27-31); Mean Corpuscular Volume 88 fL (80-97); Mean Platelet Volume 7.6 um3 (7.4-10.4); Nucleated Red Blood Cells % 0; Platelet Count 306 10^3/ul (150-450); Red Blood Count 2.99 10^6/ul (4.00-5.40); Red Cell Distribution Width 15 % (10.5-15); White Blood Count 9.1 10^3/ul (3.5-10.8)
[2018-03-21 08:16] LABS: EGFR Non-African American 23.8 (>60)
[2018-03-21] MEDS: Ciprofloxacin TAB* 500 MG PO SCH (08:45)
[2018-03-21] MEDS: Atenolol TAB* 50 MG PO SCH (08:46)
[2018-03-21] MEDS: Venlafaxine EXT RELEASE CAP* 75 MG PO SCH (08:46)
[2018-03-21] MEDS: Atorvastatin* 40 MG TAB PO SCH (08:46)
[2018-03-21] MEDS: Sertraline* 50 MG TAB PO SCH (08:46)
[2018-03-21] MEDS: Aspirin EC TAB* 81 MG TAB.EC PO SCH (08:46)
[2018-03-21] MEDS: metroNIDAZOLE TAB* 250 MG PO SCH ×3 (08:46→21:54)
[2018-03-21] MEDS: amLODIPine TAB* 5 MG PO SCH (08:46)
[2018-03-21] MEDS: Losartan TAB* 25 MG PO SCH (08:46)
[2018-03-21] MEDS: Lactobacillus Acidophilus* 1 TAB PO SCH (08:46)
[2018-03-21] MEDS: Insulin GLARGINE(*) 1 UNITS UNIT SUBCUT SCH ×2 (08:50→21:54)
[2018-03-21] MEDS: Insulin LISPRO* 1 UNITS UNIT SUBCUT SCH ×3 (08:50→18:08)
[2018-03-21] MEDS: Fluticasone NASAL SPRAY 50MCG* 16 gm SPRAY BTL BOTH NARES SCH (08:53)
[2018-03-21] MEDS: Nystatin TOP POWDER* 15 GM BTL TOPICAL SCH ×3 (08:53→22:55)
[2018-03-21] MEDS: Fondaparinux* 2.5 MG/0.5 ML SYRINGE SUBCUT SCH (12:47)
[2018-03-21] MEDS ORDERED: Hydrochlorothiazide TAB* 25 MG PO ONE (14:09)
--- NOTE | 2018-03-21 14:56 | PN ---
Subjective Date of Service: 03/21/18 Interval History: Resting in chair and spiritual care person at bedside. Patient denies pain. Reports she feels weak, stiff, and like she is retaining fluid in extremities. Reports 2 episodes of diarrhea today. Denies abd pain, nausea, cp, or sob. 12 point ROS completed and all other negative besides above mentioned. Family History: Unchanged from Admission Social History: Unchanged from Admission Past Medical History: Unchanged from Admission Objective Active Medications: Acetaminophen (Tylenol Tab*) 650 mg PO Q4H PRN PRN Reason: FEVER/PAIN Last Admin: 03/20/18 06:18 Dose: 650 mg Al Hydrox/Mg Hydrox/Simethicone (Maalox Plus*) 30 ml PO Q6H PRN PRN Reason: INDIGESTION Amlodipine Besylate (Norvasc Tab*) 10 mg PO DAILY [facility] Last Admin: 03/21/18 08:46 Dose: 10 mg Aspirin (Aspirin Ec Tab*) 81 mg PO DAILY [facility] Last Admin: 03/21/18 08:46 Dose: 81 mg Atenolol (Tenormin Tab*) 100 mg PO DAILY [facility] Last Admin: 03/21/18 08:46 Dose: 100 mg Atorvastatin Calcium (Lipitor*) 40 mg PO DAILY [facility] Last Admin: 03/21/18 08:46 Dose: 40 mg Ciprofloxacin (Cipro Tab*) 250 mg PO Q12HR [facility] Dextrose (D50w Syringe 50 Ml*) 12.5 gm IV PUSH .FOR FS < 60 - SS PRN PRN Reason: FS < 60 Fluticasone Propionate (Flonase Nasal [place] 50mcg*) 2 spray BOTH NARES DAILY [facility] Last Admin: 03/21/18 08:53 Dose: 2 spray Fondaparinux (Arixtra*) 1.25 mg SUBCUT DAILY [facility] Last Admin: 03/21/18 12:47 Dose: 1.25 mg Hydrochlorothiazide (Hydrodiuril Tab*) 25 mg PO DAILY [facility] Insulin Glargine (Lantus(*)) 16 units SUBCUT BID [facility] Last Admin: 03/21/18 08:50 Dose: 16 units Insulin Human Lispro (Humalog*) 0 units SUBCUT AC [facility]; Protocol Last Admin: 03/21/18 12:47 Dose: 6 units Lactobacillus Rhamnosus (Lactobacillus Acidophilus*) 1 tab PO DAILY [facility] Last Admin: 03/21/18 08:46 Dose: 1 tab Levothyroxine Sodium (Synthroid Tab*) 100 mcg PO 0600 [facility] Last Admin: 03/21/18 06:04 Dose: 100 mcg Losartan Potassium (Cozaar Tab*) 100 mg PO DAILY [facility] Melatonin (Melatonin) 3 mg PO BEDTIME PRN; Protocol PRN Reason: Sleep Last Admin: 03/20/18 22:14 Dose: 3 mg Metronidazole (Flagyl Tab*) 500 mg PO TID [facility] Last Admin: 03/21/18 12:47 Dose: 500 mg Nystatin (Nystatin Top Powder*) 1 applic TOPICAL TID [facility] Last Admin: 03/21/18 12:53 Dose: 1 applic Omeprazole (Prilosec Cap*) 20 mg PO DAILY@0600 [facility] Last Admin: 03/21/18 06:04 Dose: 20 mg Sertraline HCl (Zoloft*) 50 mg PO DAILY [facility] Last Admin: 03/21/18 08:46 Dose: 50 mg Venlafaxine HCl (Effexor Xr Cap*) 150 mg PO DAILY [facility] Last Admin: 03/21/18 08:46 Dose: 150 mg Vital Signs - 8 hr 03/21/18 03/21/18 08:00 11:45 Temperature 97.4 F Pulse Rate 72 Respiratory 18 18 Rate Blood Pressure 149/68 (mmHg) O2 Sat by Pulse 98 Oximetry Oxygen Devices in Use Now: None Appearance: Comfortable, Cooperative, NAD Eyes: No Scleral Icterus Ears/Nose/Mouth/Throat: Clear Oropharnyx, Mucous Membranes Moist Neck: NL Appearance and Movements; NL JVP Respiratory: Symmetrical Chest Expansion and Respiratory Effort, Clear to Auscultation Cardiovascular: NL Sounds; No Murmurs; No JVD, RRR, - - Trace edema to bilat LE Abdominal: NL Sounds; No Tenderness; No Distention Skin: No Rash or Ulcers Neurological: Alert and Oriented x 3 Nutrition: Taking PO's Result Diagrams: 03/21/18 07:22 03/21/18 07:22 Additional Lab and Data: . Microbiology and Other Data: Microbiology 03/17/18 08:46 Urine Culture - Final Urine Enterobacter Aerogenes 03/17/18 06:46 Aerobic Blood Culture - Preliminary Blood Line No Growth Day 2 Anaerobic Blood Culture - Preliminary No Growth Day 2 03/17/18 06:17 Aerobic Blood Culture - Preliminary Blood Line No Growth Day 2 Anaerobic Blood Culture - Preliminary No Growth Day 2 03/17/18 18:30 Stool Gross Appearance - Final Stool C. difficile DNA Amplification - Final 027 Presumptive NEGATIVE Toxigenic C.diff NEGATIVE 03/17/18 18:30 Stool Occult Blood (ANGELA) - Final Stool Assess/Plan/Problems-Billing Assessment: Ms. Montemayor is a 72yo with PMH of DM2, PE, CKD stage 3, HTN, chronic pain, and cdiff who presented with c/o generalized weakness and was found on CT to have diverticulitis. In addition to UTI - Patient Problems (1) Diverticulitis Comment: - Tolerating diet well. Will advance to heart healthy diet. - Tolerating PO Cipro and Flagyl. - Discussed importance of diet, hydration, and probiotic (2) UTI (urinary tract infection) Comment: - Urine sensitivity reveals Cipro sensitive. Cipro continued as above (3) Weakness Comment: - Discussed with nurse and she agrees to ambulate patient (4) CKD (chronic kidney disease) stage 3, GFR 30-59 ml/min Comment: - Creatinine stable and near patient's baseline. I suspected this is due to dehydration. - Discussed increasing PO fluids. - BMP ordered for tomorrow (5) Diabetes mellitus, type 2 Comment: - A1C 11.5%; d/t noncompliance with medications - Fasting BG trending up and in 200s, therefore lantus increased from 14 units BID to 16 units BID - Continue lispro SS - Possible endocrine consult at discharge (6) HTN (hypertension) Comment: - Improved - Resume HCTZ for patient sensation of retaining and further BP management. - Continue atenolol, norvasc, losartan (7) Hypothyroidism Comment: - TSH 6.77; likely d/t noncompliance - Will need to address with PCP after d/c (8) Pancreatic mass Comment: - Present on CT since at least 2016 without significant change (9) Depression Comment: - Continue Effexor and Zoloft (10) DVT prophylaxis Comment: - Continue fondaparinux renal dosing (heparin allergy) (11) Full code status Status and Disposition: Inpatient. APS involved. Anticipate d/c home tomorrow if medically stable. Attending: Nito Bowman
[2018-03-21] MEDS: Ciprofloxacin TAB* 250 MG PO SCH (21:55)
[2018-03-21] MEDS: Melatonin 3 MG TAB PO PRN (21:55)
[2018-03-21] MEDS: Acetaminophen TAB* 325 MG PO PRN (22:20)
[2018-03-22] MEDS: Omeprazole CAP* 20 MG PO SCH (06:50)
[2018-03-22] MEDS: Levothyroxine TAB* 100 MCG TAB PO SCH (06:50)
[2018-03-22 06:59] LABS: ABS Basophils 0.1 10^3/ul (0-0.2); ABS Eosinophils 0.2 10^3/ul (0-0.6); ABS Lymphocytes 1.7 10^3/ul (1.0-4.8); ABS Monocytes 0.6 10^3/ul (0-0.8); ABS Neutrophils 6.9 10^3/ul (1.5-7.7); ABS Nucleated RBC 0 10^3/ul; Eosinophil % 2.5 % (0-6); Hematocrit 25 % (35-47); Hemoglobin 8.5 g/dl (12.0-16.0); Lymphocyte % 17.9 % (25-47); Mean Corpuscular HGB Conc 34 g/dl (31-36); Mean Corpuscular Hemoglobin 30 pg (27-31); Mean Corpuscular Volume 87 fL (80-97); Mean Platelet Volume 7.6 um3 (7.4-10.4); Nucleated Red Blood Cells % 0; Platelet Count 293 10^3/ul (150-450); Red Blood Count 2.86 10^6/ul (4.00-5.40); Red Cell Distribution Width 15 % (10.5-15); White Blood Count 9.6 10^3/ul (3.5-10.8)
[2018-03-22 07:17] LABS: EGFR Non-African American 25.7 (>60)
[2018-03-22] MEDS ORDERED: Hydrochlorothiazide TAB* 25 MG PO SCH (09:00)
[2018-03-22] MEDS ORDERED: Losartan TAB* 25 MG PO SCH (09:00)
[2018-03-22] MEDS: Insulin GLARGINE(*) 1 UNITS UNIT SUBCUT SCH (09:05)
[2018-03-22] MEDS: Insulin LISPRO* 1 UNITS UNIT SUBCUT SCH ×2 (09:05→13:51)
[2018-03-22] MEDS: Fondaparinux* 2.5 MG/0.5 ML SYRINGE SUBCUT SCH (09:06)
--- NOTE | 2018-03-22 09:09 | DCNOTE ---
Subjective Date of Service: 03/22/18 Interval History: Resting in bed. Reports occasional abd pain, but less often than previously and less severe. Reports she feels "hopeful" as she did not have any diarrhea last evening and she tolerated regular consistency diet for dinner last night. In addition she reports she no longer feels like she is "retaining" fluid since restarting fluid pill yesterday Per nurse patient ambulated to bathroom last night. I encouraged patient and nurse to ambulate again today. 12 point ROS completed and all others negative except above mentioned. Family History: Unchanged from Admission Social History: Unchanged from Admission Past Medical History: Unchanged from Admission Objective Active Medications: Acetaminophen (Tylenol Tab*) 650 mg PO Q4H PRN PRN Reason: FEVER/PAIN Last Admin: 03/21/18 22:20 Dose: 650 mg Al Hydrox/Mg Hydrox/Simethicone (Maalox Plus*) 30 ml PO Q6H PRN PRN Reason: INDIGESTION Amlodipine Besylate (Norvasc Tab*) 10 mg PO DAILY [facility] Last Admin: 03/21/18 08:46 Dose: 10 mg Aspirin (Aspirin Ec Tab*) 81 mg PO DAILY [facility] Last Admin: 03/21/18 08:46 Dose: 81 mg Atenolol (Tenormin Tab*) 100 mg PO DAILY [facility] Last Admin: 03/21/18 08:46 Dose: 100 mg Atorvastatin Calcium (Lipitor*) 40 mg PO DAILY [facility] Last Admin: 03/21/18 08:46 Dose: 40 mg Ciprofloxacin (Cipro Tab*) 250 mg PO Q12HR [facility] Last Admin: 03/21/18 21:55 Dose: 250 mg Dextrose (D50w Syringe 50 Ml*) 12.5 gm IV PUSH .FOR FS < 60 - SS PRN PRN Reason: FS < 60 Fluticasone Propionate (Flonase Nasal [place] 50mcg*) 2 spray BOTH NARES DAILY [facility] Last Admin: 03/21/18 08:53 Dose: 2 spray Fondaparinux (Arixtra*) 1.25 mg SUBCUT DAILY [facility] Last Admin: 03/21/18 12:47 Dose: 1.25 mg Hydrochlorothiazide (Hydrodiuril Tab*) 25 mg PO DAILY [facility] Insulin Glargine (Lantus(*)) 16 units SUBCUT BID [facility] Last Admin: 03/21/18 21:54 Dose: 16 units Insulin Human Lispro (Humalog*) 0 units SUBCUT AC [facility]; Protocol Last Admin: 03/21/18 18:08 Dose: 6 units Lactobacillus Rhamnosus (Lactobacillus Acidophilus*) 1 tab PO DAILY [facility] Last Admin: 03/21/18 08:46 Dose: 1 tab Levothyroxine Sodium (Synthroid Tab*) 100 mcg PO 0600 [facility] Last Admin: 03/22/18 06:50 Dose: 100 mcg Losartan Potassium (Cozaar Tab*) 100 mg PO DAILY [facility] Melatonin (Melatonin) 3 mg PO BEDTIME PRN; Protocol PRN Reason: Sleep Last Admin: 03/21/18 21:55 Dose: 3 mg Metronidazole (Flagyl Tab*) 500 mg PO TID [facility] Last Admin: 03/21/18 21:54 Dose: 500 mg Nystatin (Nystatin Top Powder*) 1 applic TOPICAL TID [facility] Last Admin: 03/21/18 22:55 Dose: 1 applic Omeprazole (Prilosec Cap*) 20 mg PO DAILY@0600 [facility] Last Admin: 03/22/18 06:50 Dose: 20 mg Sertraline HCl (Zoloft*) 50 mg PO DAILY [facility] Last Admin: 03/21/18 08:46 Dose: 50 mg Venlafaxine HCl (Effexor Xr Cap*) 150 mg PO DAILY [facility] Last Admin: 03/21/18 08:46 Dose: 150 mg Vital Signs - 8 hr 03/22/18 03/22/18 03:16 07:23 Temperature 97.6 F 98.0 F Pulse Rate 79 73 Respiratory 18 16 Rate Blood Pressure 128/55 134/46 (mmHg) O2 Sat by Pulse 94 93 Oximetry Oxygen Devices in Use Now: None Appearance: Comfortable, cooperative, and NAD Eyes: No Scleral Icterus Ears/Nose/Mouth/Throat: Clear Oropharnyx, Mucous Membranes Moist Neck: NL Appearance and Movements; NL JVP Respiratory: Symmetrical Chest Expansion and Respiratory Effort, Clear to Auscultation Cardiovascular: NL Sounds; No Murmurs; No JVD, RRR, - - Trace bilat LE edema Lymphatic: No Cervical Adenopathy Extremities: No Clubbing, Cyanosis Skin: No Rash or Ulcers Neurological: Alert and Oriented x 3, NL Muscle Strength and Tone Nutrition: Taking PO's Result Diagrams: 03/22/18 06:40 03/22/18 06:40 Additional Lab and Data: . Microbiology and Other Data: Microbiology 03/17/18 08:46 Urine Culture - Final Urine Enterobacter Aerogenes 03/17/18 06:46 Aerobic Blood Culture - Preliminary Blood Line No Growth Day 2 Anaerobic Blood Culture - Preliminary No Growth Day 2 03/17/18 06:17 Aerobic Blood Culture - Preliminary Blood Line No Growth Day 2 Anaerobic Blood Culture - Preliminary No Growth Day 2 03/17/18 18:30 Stool Gross Appearance - Final Stool C. difficile DNA Amplification - Final 027 Presumptive NEGATIVE Toxigenic C.diff NEGATIVE 03/17/18 18:30 Stool Occult Blood (ANGELA) - Final Stool Assess/Plan/Problems-Billing Assessment: Ms. Montemayor is a 72yo with PMH of DM2, PE, CKD stage 3, HTN, chronic pain, and cdiff who presented with c/o generalized weakness and was found on CT to have diverticulitis and urine culture revealed UTI - Patient Problems (1) Diverticulitis Comment: - Tolerating heart healthy diet. - Tolerating PO Cipro and Flagyl. - Discussed importance of diet, hydration, and probiotic - Pain improved. - Diarrhea frequency decreasing as she had no episodes of diarrhea last night - Afebrile. Has received Tylenol, but for pain per documentation. (2) UTI (urinary tract infection) Comment: - Urine sensitivity reveals Cipro sensitive. Cipro continued as above - Aysmptomatic. - Encouraged PO fluids (3) Weakness Comment: - Ambulated last night - Will ambulate again today (4) CKD (chronic kidney disease) stage 3, GFR 30-59 ml/min Comment: - Creatinine stable and trending down towards patient's baseline. I suspected this is due to dehydration. - Discussed increasing PO fluids. - BMP at discharge follow up (5) Diabetes mellitus, type 2 Comment: - A1C 11.5%; d/t noncompliance with medications - Resume home medications at discharge with close follow up with PCP who may determine need for endocrine consult at discharge (6) HTN (hypertension) Comment: - Improved - Continue home medications: atenolol, norvasc, losartan, HCTZ (7) Hypothyroidism Comment: - TSH 6.77; likely d/t noncompliance - Will need to address with PCP after d/c (8) Pancreatic mass Comment: - Present on CT since at least 2015 without significant change - Follow up with PCP (9) Depression Comment: - Continue Effexor and Zoloft (10) Full code status (11) Non-compliance Comment: - Patient's primary care has been contacted by social work and they will call patient to set up close follow up in 3 to 5 days. - In addition, APS is involved - Finally discussed importance of compliance and follow up with patient who states understanding. Status and Disposition: Inpatient. APS involved. Anticipate d/c home tomorrow today and patient reports she feels ready.
[2018-03-22] MEDS: Lactobacillus Acidophilus* 1 TAB PO SCH (09:10)
[2018-03-22] MEDS: Sertraline* 50 MG TAB PO SCH (09:10)
[2018-03-22] MEDS: Atorvastatin* 40 MG TAB PO SCH (09:11)
[2018-03-22] MEDS: Aspirin EC TAB* 81 MG TAB.EC PO SCH (09:11)
[2018-03-22] MEDS: amLODIPine TAB* 5 MG PO SCH (09:11)
[2018-03-22] MEDS: Venlafaxine EXT RELEASE CAP* 75 MG PO SCH (09:11)
[2018-03-22] MEDS: Atenolol TAB* 50 MG PO SCH (09:11)
[2018-03-22] MEDS: Ciprofloxacin TAB* 250 MG PO SCH (09:12)
[2018-03-22] MEDS: Fluticasone NASAL SPRAY 50MCG* 16 gm SPRAY BTL BOTH NARES SCH (09:12)
[2018-03-22] MEDS: metroNIDAZOLE TAB* 250 MG PO SCH ×2 (09:12→13:51)
[2018-03-22] MEDS: Nystatin TOP POWDER* 15 GM BTL TOPICAL SCH ×2 (09:13→15:19)
[2018-03-22 14:34] VITALS: BP 141/65
--- NOTE | 2018-03-23 06:37 | DS ---
DISCHARGE SUMMARY: DATE OF ADMISSION: 03/17/18 DATE OF DISCHARGE: 03/22/18 ATTENDING PHYSICIAN: Dr. Bowman * (dictated by Ivy Pastor NP) PRIMARY DIAGNOSES: 1. Diverticulitis. 2. Urinary tract infection. SECONDARY DIAGNOSES: 1. Insulin-dependent type 2 diabetes. 2. Pulmonary embolism approximately 2 years ago, no longer on anticoagulation therapy. 3. Stage 3 chronic kidney disease. 4. Hypertension. 5. Posttraumatic stress disorder. 6. Depression. 7. Recurrent gastritis. 8. Gastroesophageal reflux disease. 9. Chronic pain. 10. Diabetic neuropathy. 11. History of Clostridium difficile. 12. Subdural hematoma, December 2016. 13. Breast cancer, right side, radiation in January 2010. 14. Pancreatic nodule. PERTINENT STUDIES WHILE IN THE HOSPITAL: CT, abdomen and pelvis: Impression: There is occasional diverticula of the distal colon. There is a small amount of pericolonic inflammatory change which may present to be acute diverticulitis correlate clinically. There is no loculated fluid collection due to suggest abscess. There is atrophy of the pancreas with solid nodule of the uncinate process measuring up to 1.5 cm in size. The differential diagnosis includes pancreatic neoplasm. PERTINENT LABORATORY DATA: On admission, hemoglobin 12.6 and hematocrit 38. On discharge hemoglobin 8.5 and hematocrit 25. I suspect the higher reading on admission was due to hemodilution. As the patient's baseline is closer to 8.5 and 25. It should also be noted that the patient's stool was negative for blood. Creatinine on admission 1.87, on discharge 1.91. In reviewing the patient's previous labs it appears the patient is near her baseline. I did encourage her to increase her intake as p.o. fluids (water) and have these rechecked at her followup. Hemoglobin A1c was 11.5 on admission. I suspect this is due to noncompliance as the patient has not been taking all of her meds. She reports that she has been taking her insulin that she has at home, but she is a poor historian. I also suspect she does not adhere to diabetic diet. I have encouraged her to follow up with her primary care provider as soon as possible with possible consultation to Endocrinology, if her primary care provider deems necessary. The patient will very much benefit from better control of her diabetes. TSH was 6.77 on admission. Once again, I suspect that this is due to noncompliance. The patient reports she has not been taking her levothyroxine. As she has canceled her prescription plan and could not afford the medication. HISTORY OF PRESENT ILLNESS: This is a 72-year-old female who carries a history of insulin-dependent type 2 diabetes, hypertension, kidney disease, depression, PTSD, breast cancer, history of pulmonary embolism, and history of subdural hematoma. She came to the ED on 03/17/18 with complaint of not feeling right. During her ED stay, she was noted to have diverticulitis on CT in addition noted to have a urinary tract infection. She was also noted to meet SIRS criteria as she was hypothermic at 94 Fahrenheit on presentation to emergency room and had a respiratory rate of 24. The patient was provided fluid resuscitation and antibiotics Zosyn and vancomycin while in the ED. She was also pancultured. During her admission, Zosyn was continued and the patient was on a clear diet. Once, the urine culture resulted, it was noted to be sensitive to Cipro and the patient was tolerating p.o. She was started on p.o. Cipro and p.o. Flagyl. The patient's diet was advanced. She tolerated the heart healthy diet. She was also tolerating p.o. Cipro and Flagyl by mouth. We educated her on the importance of diet, hydration, and taking probiotics. On discharge, the patient 's frequency of diarrhea had decreased as she had no episodes of diarrhea throughout the night. In addition, the patient's abdominal pain had improved. It should be noted that C. diff was negative. The patient also remained afebrile during her hospital stay. REVIEW OF SYSTEMS: Please see discharge note. PHYSICAL EXAMINATION: Please see discharge note. At followup please: 1. Follow up BMP for continued stability of creatinine. 2. Follow up regarding improved control of diabetes. 3. Follow up regarding adjustment of levothyroxine to get TSH closer to goal. 4. ATF will be following the patient after discharge. 5. The patient has also been referred to [facility]. 6. The patient has also been put in touch with outpatient professor of social work to reinstate prescription plan. In the meantime, I have provided the patient with 5 days prescription of all of her meds via our inpatient pharmacy. I did not provide her with insulin, Zoloft, omeprazole, Tylenol, as she reports she has these medications at home. 7. Pancreatic mass: This mass has been seen on previous CTs and the patient is aware. I will defer this to your primary care provider to determine whether or not further evaluation is necessary as this is stable. It should be noted that the patient was offered acute rehabilitation but declined. Please see social work/case management note for further details. REASONS TO RETURN TO THE HOSPITAL: Including but not limited to recurrent or significant symptoms of chest pain, shortness of breath, nausea, vomiting, lightheadedness, loss of consciousness, near loss of consciousness, inability to obtain or tolerate medications, dysuria, fever, abdominal pain, or any new or worsening symptoms. She stated understanding. TIME SPENT: Greater than 45 minutes was spent on this discharge of this patient , greater than half of that time was spent [id number] with the patient. I also reviewed the plan of care and discharge with my attending, Dr. Bowman. IVY PASTOR, KENA [id number]/CPS #: [id number] AZAEL
== END 2018-03-22 16:30 | disposition home or self-care (01) | DRG 392 ==
LOC: ED 05:51 → MED 11:06
PROVIDERS: ADMIT Internal Medicine; ATTEND Internal Medicine
DX: K57.32 Diverticulitis of large intestine without perforation or abscess without bleeding (principal); N39.0 Urinary tract infection, site not specified; E11.40 Type 2 diabetes mellitus with diabetic neuropathy, unspecified; E11.22 Type 2 diabetes mellitus with diabetic chronic kidney disease; B96.89 Other specified bacterial agents as the cause of diseases classified elsewhere; N18.3 Chronic kidney disease, stage 3 (moderate); I12.9 Hypertensive chronic kidney disease with stage 1 through stage 4 chronic kidney disease, or unspecified chronic kidney disease; F43.10 Post-traumatic stress disorder, unspecified; F32.9 Major depressive disorder, single episode, unspecified; K29.60 Other gastritis without bleeding; K21.9 Gastro-esophageal reflux disease without esophagitis; G89.29 Other chronic pain; R68.0 Hypothermia, not associated with low environmental temperature; K86.9 Disease of pancreas, unspecified; B37.3 Candidiasis of vulva and vagina; Z86.711 Personal history of pulmonary embolism; Z85.3 Personal history of malignant neoplasm of breast; Z91.14 Patient's other noncompliance with medication regimen; Z79.1 Long term (current) use of non-steroidal anti-inflammatories (NSAID); Z79.82 Long term (current) use of aspirin; Z79.4 Long term (current) use of insulin; Z79.899 Other long term (current) drug therapy; Z88.8 Allergy status to other drugs, medicaments and biological substances; Z87.891 Personal history of nicotine dependence
CPT/HCPCS: 36415; 71045; 74176; 80048; 80053; 81003; 81015; 82272; 83036; 83605; 83735; 84443; 84484; 85025; 87040; 87045; 87046; 87077; 87086; 87186; 87493; 87899; 90686; 93005; 99285; A9270-GY; J2405; J2543; J3370

== ENCOUNTER 2018-03-23 09:49 | Inpatient (IN) | payer MEDICARE ==
[2018-03-23] MEDS ORDERED: NS 0.9% 1000 ML* 1,000 ML IV ONE (10:16)
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
[2018-03-23 11:36] LABS: ABS Basophils 0.1 10^3/ul (0-0.2); ABS Eosinophils 0 10^3/ul (0-0.6); ABS Lymphocytes 0.9 10^3/ul (1.0-4.8); ABS Monocytes 0.8 10^3/ul (0-0.8); ABS Nucleated RBC 0 10^3/ul; Eosinophil % 0.3 % (0-6); Hematocrit 28 % (35-47); Hemoglobin 9.1 g/dl (12.0-16.0); Lymphocyte % 7.5 % (25-47); Mean Corpuscular HGB Conc 33 g/dl (31-36); Mean Corpuscular Hemoglobin 29 pg (27-31); Mean Corpuscular Volume 87 fL (80-97); Mean Platelet Volume 7.6 um3 (7.4-10.4); Nucleated Red Blood Cells % 0; Platelet Count 341 10^3/ul (150-450); Red Blood Count 3.21 10^6/ul (4.00-5.40); Red Cell Distribution Width 15 % (10.5-15); White Blood Count 11.8 10^3/ul (3.5-10.8)
[2018-03-23 11:45] LABS: INR 0.98 (0.77-1.02)
[2018-03-23] MEDS ORDERED: Magnesium Sulfate 1 GM IV* 1 GM/100 ML BAG IV ONE (12:30)
[2018-03-23] MEDS ORDERED: Furosemide IV* 10 MG/ML VIAL (40 MG) IV ONE (12:39)
--- NOTE | 2018-03-23 13:16 | RAD ---
HISTORY: sob COMPARISONS: None VIEWS: March 17, 2018 : frontal AP view of the chest at 12:40 PM FINDINGS: LINES AND TUBES: None. CARDIOMEDIASTINAL SILHOUETTE: The cardiomediastinal silhouette is normal for portable technique. PLEURA: The costophrenic angles are sharp. No pleural abnormalities are noted. LUNG PARENCHYMA: There is a diffuse reticular pattern with indistinct pulmonary vessels. There is more focal confluent alveolar opacification of the lung bases bilaterally. This is new from the previous examination. ABDOMEN: The upper abdomen is clear. There is no subphrenic gas. BONES AND SOFT TISSUES: No bone or soft tissue abnormalities are noted. IMPRESSION: PULMONARY INTERSTITIAL EDEMA WITH MORE FOCAL CONSOLIDATION VERSUS ATELECTASIS OF THE LUNG BASES BILATERALLY.
--- NOTE | 2018-03-23 13:35 | RAD ---
HISTORY: Altered MS COMPARISONS: December 26, 2017 TECHNIQUE: Multiple contiguous axial CT scans were obtained of the head without intravenous contrast. FINDINGS: HEMORRHAGE/INFARCT: There is no hemorrhage or acute infarct. MASSES/SHIFT: There is no mass or shift. EXTRA-AXIAL SPACES: There are no extra-axial fluid collections. SULCI AND VENTRICLES: The sulci and ventricles are normal in size and position for the patient's stated age. CEREBRUM: There is hypoattenuation of the periventricular and subcortical white matter. BRAINSTEM: There are no focal parenchymal abnormalities. CEREBELLUM: There are no focal parenchymal abnormalities. VESSELS: The vessels are grossly normal. PARANASAL SINUSES: The paranasal sinuses are clear. ORBITS: The orbits are unremarkable. BONES AND SOFT TISSUE: No bone or soft tissue abnormalities are noted. OTHER: None IMPRESSION: NO ACUTE INTRACRANIAL PATHOLOGY. CHRONIC SMALL VESSEL ISCHEMIC CHANGES.
[2018-03-23] MEDS ORDERED: Acetaminophen TAB* 325 MG PO PRN (14:06)
--- NOTE | 2018-03-23 15:08 | RAD ---
Indication: Hypoxia. Assess for pulmonary embolus. Comparison: March 23, 2018 chest radiograph and March 17, [address] Technique: Following administration of 13.700 mCi xenon-133 by inhalation anterior and posterior ventilation images were obtained. Following the administration of 6.400 mCi of Tc-99m macroaggregated albumin, perfusion images were obtained in multiple projections. Report: The ventilation pattern is uniform with no evidence of air trapping. Negative for segmental or subsegmental perfusion defects. IMPRESSION: #. No scintigraphic evidence for pulmonary embolism.
[2018-03-23] MEDS ORDERED: Fondaparinux* 2.5 MG/0.5 ML SYRINGE SUBCUT SCH (16:00)
[2018-03-23] MEDS ORDERED: Dextrose 50% Syringe 50 ML* 25 GM/50 ML SYRINGE IV PUSH PRN (17:09)
[2018-03-23] MEDS: Fondaparinux* 2.5 MG/0.5 ML SYRINGE SUBCUT SCH (17:17)
[2018-03-23] MEDS ORDERED: Albuterol 2.5 MG/3 ML NEB.SOL* (0.083%) INH PRN (20:57)
[2018-03-23] MEDS ORDERED: Furosemide IV* 10 MG/ML 2 ML VIAL (20 MG) IV SLOW PU ONE (20:57)
[2018-03-23] MEDS ORDERED: Insulin ISOPH/REG 70/30 (*) 1 UNITS UNIT SUBCUT SCH (21:00)
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
[2018-03-23] MEDS: Ciprofloxacin TAB* 250 MG PO SCH (21:24)
[2018-03-23] MEDS: metroNIDAZOLE TAB* 250 MG PO SCH (21:24)
--- NOTE | 2018-03-23 21:33 | HP ---
HISTORY AND PHYSICAL: DATE OF ADMISSION: ADDENDUM: V/Q scan resulted. Impression: No scintigraphic evidence for pulmonary embolism. The patient will be admitted with a diagnosis of acute hypoxic respiratory failure secondary to diastolic CHF exacerbation. There was some interstitial congestion on the patient's x-ray from ED. The patient received Lasix 40 mg IV in the ED. We will place the patient on strict I's and O's and reassess need for additional Lasix tomorrow. DESTIN PASTOR, KENA [id number]/[facility] #: [id number] AZAEL
[2018-03-23] MEDS ORDERED: Nitroglycerin 2% OINT* 1 GM PAK TOPICAL ONE (22:00)
[2018-03-23] MEDS: Insulin ISOPH/REG 70/30 (*) 1 UNITS UNIT SUBCUT SCH (23:14)
[2018-03-23] MEDS: Insulin LISPRO* 1 UNITS UNIT SUBCUT SCH (23:14)
[2018-03-23] MEDS ORDERED: Morphine VIAL* 4 MG/ML VIAL (1 ml vial) IV ONE (23:57)
[2018-03-24 02:28] LABS: ABS Basophils 0.1 10^3/ul (0-0.2); ABS Eosinophils 0 10^3/ul (0-0.6); ABS Lymphocytes 0.8 10^3/ul (1.0-4.8); ABS Monocytes 0.7 10^3/ul (0-0.8); ABS Neutrophils 11.4 10^3/ul (1.5-7.7); ABS Nucleated RBC 0 10^3/ul; Eosinophil % 0.1 % (0-6); Hematocrit 27 % (35-47); Lymphocyte % 5.8 % (25-47); Mean Corpuscular HGB Conc 33 g/dl (31-36); Mean Corpuscular Hemoglobin 28 pg (27-31); Mean Corpuscular Volume 86 fL (80-97); Mean Platelet Volume 7.4 um3 (7.4-10.4); Nucleated Red Blood Cells % 0; Platelet Count 370 10^3/ul (150-450); Red Blood Count 3.18 10^6/ul (4.00-5.40); Red Cell Distribution Width 15 % (10.5-15)
[2018-03-24 02:44] LABS: EGFR Non-African American 26.6 (>60)
[2018-03-24] MEDS: Acetaminophen TAB* 325 MG PO PRN ×2 (03:51→23:40)
[2018-03-24] MEDS: Levothyroxine TAB* 100 MCG TAB PO SCH (05:11)
[2018-03-24] MEDS: Saline NASAL SPRAY 0.65%* BTL BOTH NARES PRN ×3 (06:10→23:41)
--- NOTE | 2018-03-24 08:03 | RAD ---
HISTORY: sob COMPARISONS: March 23, 2018 VIEWS: 1: frontal AP view of the chest at 9:41 PM FINDINGS: LINES AND TUBES: None. CARDIOMEDIASTINAL SILHOUETTE: The cardiomediastinal silhouette is normal for portable technique. PLEURA: The costophrenic angles are sharp. No pleural abnormalities are noted. LUNG PARENCHYMA: There is a diffuse reticular pattern with indistinct pulmonary vessels. There is confluent alveolar opacification of the right mid and lower lung hannon. There is improved aeration of the left lower lung. ABDOMEN: The upper abdomen is clear. There is no subphrenic gas. BONES AND SOFT TISSUES: No bone or soft tissue abnormalities are noted. IMPRESSION: PULMONARY INTERSTITIAL EDEMA WITH PROGRESSIVE CONSOLIDATION OF THE RIGHT MID AND LOWER LUNG. R1F
[2018-03-24] MEDS: Insulin LISPRO* 1 UNITS UNIT SUBCUT SCH ×4 (10:13→20:33)
[2018-03-24] MEDS: Losartan TAB* 25 MG PO SCH (10:13)
[2018-03-24] MEDS: Insulin ISOPH/REG 70/30 (*) 1 UNITS UNIT SUBCUT SCH ×2 (10:13→20:33)
[2018-03-24] MEDS: Hydrochlorothiazide TAB* 25 MG PO SCH (10:14)
[2018-03-24] MEDS: Atorvastatin* 40 MG TAB PO SCH (10:14)
[2018-03-24] MEDS: Lactobacillus Acidophilus* 1 TAB PO SCH (10:16)
[2018-03-24] MEDS: Venlafaxine EXT RELEASE CAP* 75 MG PO SCH (10:16)
[2018-03-24] MEDS: Sertraline* 50 MG TAB PO SCH (10:16)
[2018-03-24] MEDS: amLODIPine TAB* 5 MG PO SCH (10:16)
[2018-03-24] MEDS: Atenolol TAB* 50 MG PO SCH (10:17)
[2018-03-24] MEDS: metroNIDAZOLE TAB* 250 MG PO SCH ×3 (10:17→20:34)
[2018-03-24] MEDS: Omeprazole CAP* 20 MG PO SCH (10:17)
[2018-03-24] MEDS: Ciprofloxacin TAB* 250 MG PO SCH ×2 (10:17→20:33)
[2018-03-24] MEDS: Fluticasone NASAL SPRAY 50MCG* 16 gm SPRAY BTL BOTH NARES SCH (15:20)
[2018-03-24] MEDS: Fondaparinux* 2.5 MG/0.5 ML SYRINGE SUBCUT SCH (16:50)
[2018-03-24] MEDS: Furosemide IV* 10 MG/ML VIAL (40 MG) IV SCH (16:52)
--- NOTE | 2018-03-24 17:13 | CONSULT ---
Consult Consult: Consult for Medical Decision Making Capacity S: Psychiatry is asked to evaluate capacity in this 72 y.o. single, obese white female with multiple medical comorbidities, who is admitted to the Hospitalist service due to a constellation of symptoms such as SOB, diarrhea, abdominal pain and generalized weakness. According to her attending, Dr. Simon Crawford, she was just discharged from [facility] on 03/22 but returned the next day with similar symptoms. There is a concern amongst the team on the 4th floor that she is living in squalid living conditions and has been minimally adherent with outpatient medications. There is some indication that she is also facing eviction. The team feels that she would benefit from placement in a subacute rehab but the patient tends to refuse this. The risks of declining include from untreated heart failure. On exam the patient is friendly and cooperative. She surprises me somewhat by stating almost immediately that she would welcome subacute rehab placement. "Well, I can't go home like this!" She states that her preference is [facility] and that she "would rather than go to [facility]." She seems to understand that she could become intensely ill or perhaps if she were to return home and not take care of herself. O: obese white female, aging; dressed in patient gown; minimal grooming; calm, cooperative; euthymic with full affect; denies SI or HI; insight and judgment fair given acceptance of [facility] referral; awake and alert; oriented to person/place /situation/time A/P: Capacity: the patient is accepting [facility] placement at this time and, in my judgment, has the capacity to do so, based on her demonstrated understanding of the risk/benefit appraisal of her situation. Capacity is subject to change in these situations and psychiatry can be re-consulted in the event of any significant changes in her presentation/situation. Thanks for the consult.
[2018-03-24] MEDS: GuaiFENesin DM* 5 ML UDC PO PRN (17:37)
--- NOTE | 2018-03-24 17:53 | PN ---
Subjective Date of Service: 03/24/18 Interval History: Pt seen and examined. Meds and labs reviewed. CC: N/A ROS: Denied HENDRICKS/dizziness, F/C, N/V, CP, SOB, increased cough, sputum production , abd pain, diarrhea, constipation, dysuria, myalgias, arthralgias, throat pain , and new skin lesions. The rest of the 14 point ROS are unremarkable. PHYSICAL EXAM: GEN APPEARANCE: Awake, not in acute distress HEENT: NC/AT, PERRLA, moist oral mucosa, (-) throat erythema NECK: Soft, supple, (-) cervical LAD, (-)JVD HEART: S1S2 WNL, RRR, No MRG CHEST: CTA, BL, GAE, No W/R/R ABD: Soft, ND/NT, NABS 4x Q EXT: No C/C/E SKIN: Warm to touch PSYCH: No active psychosis, hallucinations, depression, SI/HI Objective Active Medications: Acetaminophen (Tylenol Tab*) 650 mg PO Q4H PRN PRN Reason: FEVER/PAIN Last Admin: 03/24/18 03:51 Dose: 650 mg Albuterol (Ventolin 2.5 Mg/3 Ml Neb.Romina*) 2.5 mg INH Q2H PRN PRN Reason: SOB/WHEEZING Last Admin: 03/23/18 22:11 Dose: 2.5 mg Amlodipine Besylate (Norvasc Tab*) 10 mg PO DAILY [facility] Last Admin: 03/24/18 10:16 Dose: 10 mg Atenolol (Tenormin Tab*) 100 mg PO DAILY [facility] Last Admin: 03/24/18 10:17 Dose: 100 mg Atorvastatin Calcium (Lipitor*) 40 mg PO DAILY [facility] Last Admin: 03/24/18 10:14 Dose: 40 mg Ciprofloxacin (Cipro Tab*) 250 mg PO Q12HR [facility] Last Admin: 03/24/18 10:17 Dose: 250 mg Dextrose (D50w Syringe 50 Ml*) 12.5 gm IV PUSH .FOR FS < 60 - SS PRN PRN Reason: FS < 60 Fluticasone Propionate (Flonase Nasal [place] 50mcg*) 2 spray BOTH NARES DAILY [facility] Last Admin: 03/24/18 15:20 Dose: Not Given Fondaparinux (Arixtra*) 1.25 mg SUBCUT Q24H [facility] Last Admin: 03/24/18 16:50 Dose: 1.25 mg Furosemide (Lasix Iv*) 40 mg IV DAILY [facility] Last Admin: 03/24/18 16:52 Dose: 40 mg Guaifenesin/Dextromethorphan (Robitussin Dm*) 10 ml PO Q6H PRN PRN Reason: COUGH Last Admin: 03/24/18 17:37 Dose: 10 ml Hydrochlorothiazide (Hydrodiuril Tab*) 25 mg PO DAILY [facility] Last Admin: 03/24/18 10:14 Dose: 25 mg Insulin Human Isoph/Insulin Regular (Humulin 70/30 (*)) 22 units SUBCUT BID [facility] Insulin Human Lispro (Humalog*) 0 units SUBCUT ACHS [facility]; Protocol Last Admin: 03/24/18 16:45 Dose: 6 units Lactobacillus Rhamnosus (Lactobacillus Acidophilus*) 1 tab PO DAILY [facility] Last Admin: 03/24/18 10:16 Dose: 1 tab Levothyroxine Sodium (Synthroid Tab*) 100 mcg PO 0600 [facility] Last Admin: 03/24/18 05:11 Dose: 100 mcg Losartan Potassium (Cozaar Tab*) 100 mg PO DAILY [facility] Last Admin: 03/24/18 10:13 Dose: 100 mg Metronidazole (Flagyl Tab*) 500 mg PO TID [facility] Last Admin: 03/24/18 15:25 Dose: 500 mg Omeprazole (Prilosec Cap*) 20 mg PO DAILY [facility] Last Admin: 03/24/18 10:17 Dose: 20 mg Sertraline HCl (Zoloft*) 50 mg PO DAILY [facility] Last Admin: 03/24/18 10:16 Dose: 50 mg Sodium Chloride (Sodium Chloride 0.65% Nasal [place]*) 1 spray BOTH NARES Q4H PRN PRN Reason: CONGESTION Last Admin: 03/24/18 10:18 Dose: 1 spray Terazosin HCl (Hytrin Cap*) 2 mg PO BEDTIME [facility] Venlafaxine HCl (Effexor Xr Cap*) 150 mg PO DAILY [facility] Last Admin: 03/24/18 10:16 Dose: 150 mg Vital Signs - 8 hr 03/24/18 03/24/18 03/24/18 11:03 13:26 15:10 Temperature 99.2 F 98.4 F Pulse Rate 77 87 76 Respiratory 16 18 16 Rate Blood Pressure 142/55 146/66 (mmHg) O2 Sat by Pulse 98 96 98 Oximetry Oxygen Devices in Use Now: Nasal Cannula Result Diagrams: 03/24/18 02:22 03/24/18 02:22 Microbiology and Other Data: Microbiology 03/23/18 11:43 Aerobic Blood Culture - Preliminary Blood Venous No Growth Day 1 Anaerobic Blood Culture - Preliminary No Growth Day 1 03/23/18 11:20 Aerobic Blood Culture - Preliminary Blood Venous No Growth Day 1 Anaerobic Blood Culture - Preliminary No Growth Day 1 03/23/18 10:40 Aerobic Blood Culture - Preliminary Blood Venous No Growth Day 1 Anaerobic Blood Culture - Final Not Reportable 03/23/18 19:50 Stool Gross Appearance - Final Stool C. difficile DNA Amplification - Final 027 Presumptive NEGATIVE Toxigenic C.diff NEGATIVE Stool Lactoferrin - Final Stool Occult Blood (ANGELA) - Final 03/23/18 12:00 Influenza Types A,B Antigen - Final Nasal Specimen received for Influenza A/B Molecular testing Assess/Plan/Problems-Billing Assessment: - Patient Problems (1) SOB (shortness of breath) Current Visit: Yes Status: Acute Code(s): R06.02 - SHORTNESS OF BREATH SNOMED Code(s): 653157588 Comment: -Improved after trial of diuretics -Likely due to diastolic CHF---last 2D echo done on 12/26/17 -Will continue with IV Diuresis -V/Q scan: Low prob. for PE (2) Diarrhea Current Visit: Yes Status: Acute Code(s): R19.7 - DIARRHEA, UNSPECIFIED SNOMED Code(s): 67138185 Comment: -C. diff (-), stool -lactoferrin (+) -Continue Flagyl and Cipro -Blood Cx (-) x 1D (3) Weakness Current Visit: Yes Status: Acute Code(s): R53.1 - WEAKNESS SNOMED Code(s) : 38050922 Comment: -Likely due to above (4) Diabetes 1.5, managed as type 2 Current Visit: Yes Status: Acute Code(s): E10.9 - TYPE 1 DIABETES MELLITUS WITHOUT COMPLICATIONS SNOMED Code(s): 518570886 Comment: -Will Increase Insulin regimen -Continue watchful waiting (5) Uncontrolled hypertension Current Visit: Yes Status: Acute Code(s): I10 - ESSENTIAL (PRIMARY) HYPERTENSION SNOMED Code(s): 00035217 Comment: -Uncontrolled -Will add Hytrin to regimen -Continue Amlodipine, Atenolol, HCTZ, and Losartan -Continue watchful waiting (6) DVT prophylaxis Current Visit: Yes Status: Acute Code(s): DEY8859 - SNOMED Code(s): 169256954 Comment: -Continue Fondaparinux due to her allergy to Heparin Status and Disposition: -Appreciate Dr. Marie input and at this time pt is compliant with current plans and seem to have capacity -For PT eval
[2018-03-24] MEDS: Terazosin CAP* 1 MG PO SCH (20:34)
[2018-03-24] MEDS ORDERED: Metoprolol Tartrate TAB* 25 MG PO SCH (21:00)
[2018-03-25] MEDS: GuaiFENesin DM* 5 ML UDC PO PRN (00:38)
[2018-03-25 06:20] LABS: ABS Basophils 0.1 10^3/ul (0-0.2); ABS Eosinophils 0.3 10^3/ul (0-0.6); ABS Lymphocytes 1.7 10^3/ul (1.0-4.8); ABS Monocytes 0.6 10^3/ul (0-0.8); ABS Neutrophils 5.7 10^3/ul (1.5-7.7); ABS Nucleated RBC 0 10^3/ul; Eosinophil % 3.3 % (0-6); Hematocrit 22 % (35-47); Hemoglobin 7.5 g/dl (12.0-16.0); Lymphocyte % 20.2 % (25-47); Mean Corpuscular HGB Conc 34 g/dl (31-36); Mean Corpuscular Hemoglobin 30 pg (27-31); Mean Corpuscular Volume 86 fL (80-97); Mean Platelet Volume 7.8 fL (7.4-10.4); Nucleated Red Blood Cells % 0; Platelet Count 316 10^3/ul (150-450); Red Blood Count 2.53 10^6/ul (4.00-5.40); Red Cell Distribution Width 15 % (10.5-15); White Blood Count 8.2 10^3/ul (3.5-10.8)
[2018-03-25] MEDS: Levothyroxine TAB* 100 MCG TAB PO SCH (06:24)
[2018-03-25 06:35] LABS: EGFR Non-African American 22.4 (>60)
[2018-03-25] MEDS: Losartan TAB* 25 MG PO SCH (09:45)
[2018-03-25] MEDS: Lactobacillus Acidophilus* 1 TAB PO SCH (09:46)
[2018-03-25] MEDS: Hydrochlorothiazide TAB* 25 MG PO SCH (09:46)
[2018-03-25] MEDS: Atorvastatin* 40 MG TAB PO SCH (09:47)
[2018-03-25] MEDS: metroNIDAZOLE TAB* 250 MG PO SCH ×3 (09:47→21:02)
[2018-03-25] MEDS: Venlafaxine EXT RELEASE CAP* 75 MG PO SCH (09:47)
[2018-03-25] MEDS: Atenolol TAB* 50 MG PO SCH (09:48)
[2018-03-25] MEDS: Ciprofloxacin TAB* 250 MG PO SCH ×2 (09:50→20:59)
[2018-03-25] MEDS: Omeprazole CAP* 20 MG PO SCH (09:50)
[2018-03-25] MEDS: amLODIPine TAB* 5 MG PO SCH (09:50)
[2018-03-25] MEDS: Sertraline* 50 MG TAB PO SCH (09:51)
[2018-03-25] MEDS: Insulin ISOPH/REG 70/30 (*) 1 UNITS UNIT SUBCUT SCH ×2 (09:53→17:34)
[2018-03-25] MEDS: Insulin LISPRO* 1 UNITS UNIT SUBCUT SCH ×4 (09:54→20:59)
[2018-03-25] MEDS: Furosemide IV* 10 MG/ML VIAL (40 MG) IV SCH (09:59)
[2018-03-25] MEDS ORDERED: Furosemide IV* 10 MG/ML 2 ML VIAL (20 MG) IV ONE (11:30)
[2018-03-25] MEDS: Fluticasone NASAL SPRAY 50MCG* 16 gm SPRAY BTL BOTH NARES SCH ×2 (12:42→18:56)
--- NOTE | 2018-03-25 15:14 | PN ---
Subjective Date of Service: 03/25/18 Interval History: Pt seen and examined. Meds and labs reviewed. CC: Pt mentions that she is still having diarrhea and mentioned she had black stools yesterday in presence of RN. SOB improving ROS: Denied HENDRICKS/dizziness, F/C, N/V, CP, increased cough, sputum production, abd pain, constipation, dysuria, myalgias, arthralgias, throat pain, and new skin lesions. The rest of the 14 point ROS are unremarkable. PHYSICAL EXAM: GEN APPEARANCE: Awake, not in acute distress, Obese HEENT: NC/AT, PERRLA, moist oral mucosa, (-) throat erythema NECK: Soft, supple, (-) cervical LAD, (-)JVD HEART: S1S2 WNL, RRR, No MRG CHEST: CTA, BL, GAE, No W/R/R ABD: Soft, ND/NT, NABS 4x Q EXT: No C/C/BLLE +2 edema SKIN: Warm to touch PSYCH: No active psychosis, hallucinations, depression, SI/HI RECTAL: With [place] on gloved finger, the rectal vault was accessed without difficulty, no masses nor hemorrhoids felt on exam, (+) brown stool on gloved finger Objective Active Medications: Acetaminophen (Tylenol Tab*) 650 mg PO Q4H PRN PRN Reason: FEVER/PAIN Last Admin: 03/24/18 23:40 Dose: 650 mg Albuterol (Ventolin 2.5 Mg/3 Ml Neb.Romina*) 2.5 mg INH Q2H PRN PRN Reason: SOB/WHEEZING Last Admin: 03/23/18 22:11 Dose: 2.5 mg Amlodipine Besylate (Norvasc Tab*) 10 mg PO DAILY [facility] Last Admin: 03/25/18 09:50 Dose: 10 mg Atenolol (Tenormin Tab*) 100 mg PO DAILY [facility] Last Admin: 03/25/18 09:48 Dose: 100 mg Atorvastatin Calcium (Lipitor*) 40 mg PO DAILY [facility] Last Admin: 03/25/18 09:47 Dose: 40 mg Ciprofloxacin (Cipro Tab*) 250 mg PO Q12HR [facility] Last Admin: 03/25/18 09:50 Dose: 250 mg Dextrose (D50w Syringe 50 Ml*) 12.5 gm IV PUSH .FOR FS < 60 - SS PRN PRN Reason: FS < 60 Fluticasone Propionate (Flonase Nasal [place] 50mcg*) 2 spray BOTH NARES DAILY [facility] Last Admin: 03/25/18 12:42 Dose: Not Given Fondaparinux (Arixtra*) 1.25 mg SUBCUT Q24H [facility] Last Admin: 03/24/18 16:50 Dose: 1.25 mg Furosemide (Lasix Iv*) 40 mg IV DAILY [facility] Last Admin: 03/25/18 09:59 Dose: 40 mg Guaifenesin/Dextromethorphan (Robitussin Dm*) 10 ml PO Q6H PRN PRN Reason: COUGH Last Admin: 03/25/18 00:38 Dose: 10 ml Hydrochlorothiazide (Hydrodiuril Tab*) 25 mg PO DAILY [facility] Last Admin: 03/25/18 09:46 Dose: 25 mg Insulin Human Isoph/Insulin Regular (Humulin 70/30 (*)) 26 units SUBCUT BID [facility] Insulin Human Lispro (Humalog*) 0 units SUBCUT ACHS [facility]; Protocol Last Admin: 03/25/18 12:42 Dose: 12 units Lactobacillus Rhamnosus (Lactobacillus Acidophilus*) 1 tab PO DAILY [facility] Last Admin: 03/25/18 09:46 Dose: 1 tab Levothyroxine Sodium (Synthroid Tab*) 100 mcg PO 0600 [facility] Last Admin: 03/25/18 06:24 Dose: 100 mcg Losartan Potassium (Cozaar Tab*) 100 mg PO DAILY [facility] Last Admin: 03/25/18 09:45 Dose: 100 mg Metronidazole (Flagyl Tab*) 500 mg PO TID [facility] Last Admin: 03/25/18 14:36 Dose: 500 mg Omeprazole (Prilosec Cap*) 20 mg PO DAILY [facility] Last Admin: 03/25/18 09:50 Dose: 20 mg Sertraline HCl (Zoloft*) 50 mg PO DAILY [facility] Last Admin: 03/25/18 09:51 Dose: 50 mg Sodium Chloride (Sodium Chloride 0.65% Nasal [place]*) 1 spray BOTH NARES Q4H PRN PRN Reason: CONGESTION Last Admin: 03/24/18 23:41 Dose: 1 spray Terazosin HCl (Hytrin Cap*) 2 mg PO BEDTIME [facility] Last Admin: 03/24/18 20:34 Dose: 2 mg Venlafaxine HCl (Effexor Xr Cap*) 150 mg PO DAILY [facility] Last Admin: 03/25/18 09:47 Dose: 150 mg Vital Signs - 8 hr 03/25/18 03/25/18 03/25/18 07:34 08:00 10:52 Temperature 97.8 F 97.9 F Pulse Rate 69 72 68 Respiratory 16 18 16 Rate Blood Pressure 125/58 126/59 (mmHg) O2 Sat by Pulse 97 96 98 Oximetry Oxygen Devices in Use Now: None Result Diagrams: 03/25/18 05:46 03/25/18 05:46 Microbiology and Other Data: Microbiology 03/23/18 11:43 Aerobic Blood Culture - Preliminary Blood Venous No Growth Day 1 Anaerobic Blood Culture - Preliminary No Growth Day 1 03/23/18 11:20 Aerobic Blood Culture - Preliminary Blood Venous No Growth Day 1 Anaerobic Blood Culture - Preliminary No Growth Day 1 03/23/18 10:40 Aerobic Blood Culture - Preliminary Blood Venous No Growth Day 1 Anaerobic Blood Culture - Final Not Reportable 03/23/18 19:50 Stool Gross Appearance - Final Stool C. difficile DNA Amplification - Final 027 Presumptive NEGATIVE Toxigenic C.diff NEGATIVE Stool Lactoferrin - Final Stool Occult Blood (ANGELA) - Final 03/23/18 12:00 Influenza Types A,B Antigen - Final Nasal Specimen received for Influenza A/B Molecular testing Assess/Plan/Problems-Billing Assessment: - Patient Problems (1) SOB (shortness of breath) Current Visit: Yes Status: Acute Code(s): R06.02 - SHORTNESS OF BREATH SNOMED Code(s): 826006206 Comment: -Improved after trial of diuretics -Likely due to diastolic CHF in the setting of anemia---last 2D echo done on 11/07 -Will continue with IV Diuresis -Will transfuse with 1 unit of PRBC, appropriately typed and crossed---will give additional Lasix of 20 mg IV during vivek-transfusion period in addition to daily dose of IV diuretics -BNP improved and may transition to PO Torsemide in AM -Will place in low Sodium diet in addition to Heart healthy diet -V/Q scan: Low prob. for PE (2) Anemia Current Visit: No Status: Acute Code(s): D64.9 - ANEMIA, UNSPECIFIED SNOMED Code(s): 469557762 Comment: -Rectal exam showed brown stools and (-) for Hemoccult---unlikely due to GIB -Likely manifested given some form of water retention as all differentials went down along with H&H -Will place pt on low salt diet as discussed -Transfuse with 1 unit of PRBC, appropriately typed and crossed (3) Diarrhea Current Visit: Yes Status: Acute Code(s): R19.7 - DIARRHEA, UNSPECIFIED SNOMED Code(s): 32993927 Comment: -Improving subjectively -Will continue watchful waiting -C. diff (-), stool -lactoferrin (+) -Continue Flagyl and Cipro -Blood Cx (-) x 2D (4) Weakness Current Visit: Yes Status: Acute Code(s): R53.1 - WEAKNESS SNOMED Code(s) : 31617366 Comment: -Likely due to above (5) Diabetes 1.5, managed as type 2 Current Visit: Yes Status: Acute Code(s): E10.9 - TYPE 1 DIABETES MELLITUS WITHOUT COMPLICATIONS SNOMED Code(s): 624745780 Comment: -Will Increase Insulin regimen -Continue watchful waiting (6) Uncontrolled hypertension Current Visit: Yes Status: Acute Code(s): I10 - ESSENTIAL (PRIMARY) HYPERTENSION SNOMED Code(s): 00425561 Comment: -Resolved---better control with addition of Hytrin to her regimen -Continue Amlodipine, Atenolol, HCTZ, Losartan, and Hytrin -Continue watchful waiting (7) DVT prophylaxis Current Visit: Yes Status: Acute Code(s): BAA6533 - SNOMED Code(s): 620871309 Comment: -Continue Fondaparinux due to her allergy to Heparin Status and Disposition: -Appreciate Dr. Marie input and at this time pt is compliant with current plans and seem to have capacity -For PT eval
[2018-03-25] MEDS: Fondaparinux* 2.5 MG/0.5 ML SYRINGE SUBCUT SCH (17:33)
[2018-03-25] MEDS: Terazosin CAP* 1 MG PO SCH (20:59)
[2018-03-26] MEDS: Acetaminophen TAB* 325 MG PO PRN ×2 (00:12→22:29)
[2018-03-26] MEDS: Saline NASAL SPRAY 0.65%* BTL BOTH NARES PRN (01:22)
[2018-03-26] MEDS: Levothyroxine TAB* 100 MCG TAB PO SCH (06:15)
[2018-03-26] MEDS: Atorvastatin* 40 MG TAB PO SCH (08:59)
[2018-03-26] MEDS: metroNIDAZOLE TAB* 250 MG PO SCH ×3 (08:59→20:33)
[2018-03-26] MEDS: Lactobacillus Acidophilus* 1 TAB PO SCH (08:59)
[2018-03-26] MEDS: Omeprazole CAP* 20 MG PO SCH (09:00)
[2018-03-26] MEDS: Losartan TAB* 25 MG PO SCH (09:00)
[2018-03-26] MEDS: amLODIPine TAB* 5 MG PO SCH (09:00)
[2018-03-26] MEDS: Venlafaxine EXT RELEASE CAP* 75 MG PO SCH (09:00)
[2018-03-26] MEDS: Sertraline* 50 MG TAB PO SCH (09:01)
[2018-03-26] MEDS: Hydrochlorothiazide TAB* 25 MG PO SCH (09:01)
[2018-03-26] MEDS: Ciprofloxacin TAB* 250 MG PO SCH ×2 (09:01→20:33)
[2018-03-26] MEDS: Atenolol TAB* 50 MG PO SCH (09:01)
[2018-03-26] MEDS: Insulin LISPRO* 1 UNITS UNIT SUBCUT SCH ×4 (09:07→20:11)
[2018-03-26] MEDS: Insulin ISOPH/REG 70/30 (*) 1 UNITS UNIT SUBCUT SCH ×2 (09:07→18:09)
[2018-03-26] MEDS: Furosemide IV* 10 MG/ML VIAL (40 MG) IV SCH (09:08)
[2018-03-26 11:38] LABS: ABS Basophils 0.1 10^3/ul (0-0.2); ABS Eosinophils 0.4 10^3/ul (0-0.6); ABS Lymphocytes 1.2 10^3/ul (1.0-4.8); ABS Monocytes 0.5 10^3/ul (0-0.8); ABS Neutrophils 5.7 10^3/ul (1.5-7.7); ABS Nucleated RBC 0 10^3/ul; Eosinophil % 4.5 % (0-6); Hematocrit 28 % (35-47); Lymphocyte % 14.9 % (25-47); Mean Corpuscular HGB Conc 33 g/dl (31-36); Mean Corpuscular Hemoglobin 29 pg (27-31); Mean Corpuscular Volume 87 fL (80-97); Mean Platelet Volume 7.5 fL (7.4-10.4); Nucleated Red Blood Cells % 0; Platelet Count 361 10^3/ul (150-450); Red Blood Count 3.17 10^6/ul (4.00-5.40); Red Cell Distribution Width 15 % (10.5-15); White Blood Count 7.7 10^3/ul (3.5-10.8)
[2018-03-26 11:55] LABS: EGFR Non-African American 22.3 (>60)
--- NOTE | 2018-03-26 16:31 | PN ---
Subjective Date of Service: 03/26/18 Interval History: Pt seen and examined. Meds and labs reviewed. CC: Mentions that she has not had any diarrhea last night and this AM and that her last BM is more formed than soft. SOB has also improved. ROS: Denied HENDRICKS/dizziness, F/C, N/V, CP, SOB, increased cough, sputum production , abd pain, diarrhea, constipation, dysuria, myalgias, arthralgias, throat pain , and new skin lesions. The rest of the 14 point ROS are unremarkable. PHYSICAL EXAM: GEN APPEARANCE: Awake, not in acute distress HEENT: NC/AT, PERRLA, moist oral mucosa, (-) throat erythema NECK: Soft, supple, (-) cervical LAD, (-)JVD HEART: S1S2 WNL, RRR, No MRG CHEST: CTA, BL, GAE, No W/R/R ABD: Soft, ND/NT, NABS 4x Q EXT: No C/C/BLLE +1 edema SKIN: Warm to touch PSYCH: No active psychosis, hallucinations, depression, SI/HI Objective Active Medications: Acetaminophen (Tylenol Tab*) 650 mg PO Q4H PRN PRN Reason: FEVER/PAIN Last Admin: 03/26/18 00:12 Dose: 650 mg Albuterol (Ventolin 2.5 Mg/3 Ml Neb.Romina*) 2.5 mg INH Q2H PRN PRN Reason: SOB/WHEEZING Last Admin: 03/23/18 22:11 Dose: 2.5 mg Amlodipine Besylate (Norvasc Tab*) 10 mg PO DAILY [facility] Last Admin: 03/26/18 09:00 Dose: 10 mg Atenolol (Tenormin Tab*) 100 mg PO DAILY [facility] Last Admin: 03/26/18 09:01 Dose: 100 mg Atorvastatin Calcium (Lipitor*) 40 mg PO DAILY [facility] Last Admin: 03/26/18 08:59 Dose: 40 mg Ciprofloxacin (Cipro Tab*) 250 mg PO Q12HR [facility] Last Admin: 03/26/18 09:01 Dose: 250 mg Dextrose (D50w Syringe 50 Ml*) 12.5 gm IV PUSH .FOR FS < 60 - SS PRN PRN Reason: FS < 60 Fluticasone Propionate (Flonase Nasal [place] 50mcg*) 2 spray BOTH NARES DAILY@ 1800 [facility] Last Admin: 03/25/18 18:56 Dose: 2 spray Fondaparinux (Arixtra*) 1.25 mg SUBCUT Q24H [facility] Last Admin: 03/25/18 17:33 Dose: 1.25 mg Guaifenesin/Dextromethorphan (Robitussin Dm*) 10 ml PO Q6H PRN PRN Reason: COUGH Last Admin: 03/25/18 00:38 Dose: 10 ml Hydrochlorothiazide (Hydrodiuril Tab*) 25 mg PO DAILY [facility] Last Admin: 03/26/18 09:01 Dose: 25 mg Insulin Human Isoph/Insulin Regular (Humulin 70/30 (*)) 30 units SUBCUT BID WITH MEALS [facility] Insulin Human Lispro (Humalog*) 0 units SUBCUT ACHS [facility]; Protocol Last Admin: 03/26/18 14:19 Dose: 12 units Lactobacillus Rhamnosus (Lactobacillus Acidophilus*) 1 tab PO DAILY [facility] Last Admin: 03/26/18 08:59 Dose: 1 tab Levothyroxine Sodium (Synthroid Tab*) 100 mcg PO 0600 [facility] Last Admin: 03/26/18 06:15 Dose: 100 mcg Losartan Potassium (Cozaar Tab*) 100 mg PO DAILY [facility] Last Admin: 03/26/18 09:00 Dose: 100 mg Metronidazole (Flagyl Tab*) 500 mg PO TID [facility] Last Admin: 03/26/18 14:21 Dose: 500 mg Omeprazole (Prilosec Cap*) 20 mg PO DAILY [facility] Last Admin: 03/26/18 09:00 Dose: 20 mg Sertraline HCl (Zoloft*) 50 mg PO DAILY [facility] Last Admin: 03/26/18 09:01 Dose: 50 mg Sodium Chloride (Sodium Chloride 0.65% Nasal [place]*) 1 spray BOTH NARES Q4H PRN PRN Reason: CONGESTION Last Admin: 03/26/18 01:22 EDT Dose: 1 spray Terazosin HCl (Hytrin Cap*) 2 mg PO BEDTIME [facility] Last Admin: 03/25/18 20:59 Dose: 2 mg Torsemide (Demadex*) 20 mg PO DAILY [facility] Venlafaxine HCl (Effexor Xr Cap*) 150 mg PO DAILY [facility] Last Admin: 03/26/18 09:00 Dose: 150 mg Vital Signs - 8 hr 03/26/18 03/26/18 11:25 15:40 Temperature 98.1 F Pulse Rate 71 74 Respiratory 18 16 Rate Blood Pressure 136/64 (mmHg) O2 Sat by Pulse 98 96 Oximetry Oxygen Devices in Use Now: Nasal Cannula Result Diagrams: 03/26/18 11:25 03/26/18 11:25 Microbiology and Other Data: Microbiology 03/23/18 11:43 Aerobic Blood Culture - Preliminary Blood Venous No Growth Day 1 Anaerobic Blood Culture - Preliminary No Growth Day 1 03/23/18 11:20 Aerobic Blood Culture - Preliminary Blood Venous No Growth Day 1 Anaerobic Blood Culture - Preliminary No Growth Day 1 03/23/18 10:40 Aerobic Blood Culture - Preliminary Blood Venous No Growth Day 1 Anaerobic Blood Culture - Final Not Reportable 03/23/18 19:50 Stool Gross Appearance - Final Stool C. difficile DNA Amplification - Final 027 Presumptive NEGATIVE Toxigenic C.diff NEGATIVE Stool Lactoferrin - Final Stool Occult Blood (ANGELA) - Final 03/23/18 12:00 Influenza Types A,B Antigen - Final Nasal Specimen received for Influenza A/B Molecular testing Assess/Plan/Problems-Billing Assessment: - Patient Problems (1) SOB (shortness of breath) Current Visit: Yes Status: Acute Code(s): R06.02 - SHORTNESS OF BREATH SNOMED Code(s): 501061778 Comment: -Improved after trial of diuretics -Likely due to diastolic CHF in the setting of anemia---last 2D echo done on 11/07 -Will D/C IV diuretics and start low dose Torsemide in AM given pt does not have evidence of contraction alkalosis and pt has hx of chronic renal insuffienciency -S/P 1 unit PRBC transfusion on 03/25/18 -BNP improved -Continue Sodium diet in addition to Heart healthy diet -V/Q scan: Low prob. for PE (2) Anemia Current Visit: No Status: Acute Code(s): D64.9 - ANEMIA, UNSPECIFIED SNOMED Code(s): 428039848 Comment: -S/P 1unit PRBC transfusion on 03/25/18 -Will defer Iron studies after a few weeks post transfusion with PCP (3) Diarrhea Current Visit: Yes Status: Acute Code(s): R19.7 - DIARRHEA, UNSPECIFIED SNOMED Code(s): 33218218 Comment: -Improving -Will continue watchful waiting -C. diff (-), stool -lactoferrin (+) -Continue Flagyl and Cipro -Blood Cx (-) x 3D -Awaiting stool culture data (4) Weakness Current Visit: Yes Status: Acute Code(s): R53.1 - WEAKNESS SNOMED Code(s) : 16122436 Comment: -Likely due to above (5) Diabetes 1.5, managed as type 2 Current Visit: Yes Status: Acute Code(s): E10.9 - TYPE 1 DIABETES MELLITUS WITHOUT COMPLICATIONS SNOMED Code(s): 231263282 Comment: -Will Increase Insulin regimen as ordered -Continue watchful waiting (6) HTN (hypertension) Current Visit: No Status: Chronic Priority: Medium Code(s): I10 - ESSENTIAL (PRIMARY) HYPERTENSION SNOMED Code(s): 48002891 Comment: -Better controled with addition of Hytrin to her regimen -Continue Amlodipine, Atenolol, HCTZ, Losartan, and Hytrin -Continue watchful waiting (7) DVT prophylaxis Current Visit: Yes Status: Acute Code(s): BCN0897 - SNOMED Code(s): 726103534 Comment: -Continue Fondaparinux due to her allergy to Heparin Status and Disposition: -Appreciate Dr. Marie input and at this time pt is compliant with current plans and seem to have capacity -For PT evalpt refused PT eval today
[2018-03-26] MEDS: Fondaparinux* 2.5 MG/0.5 ML SYRINGE SUBCUT SCH (16:39)
[2018-03-26] MEDS ORDERED: Cetirizine* 10 MG TAB PO SCH (17:00)
[2018-03-26] MEDS: Fluticasone NASAL SPRAY 50MCG* 16 gm SPRAY BTL BOTH NARES SCH (18:09)
[2018-03-26] MEDS: Cetirizine* 10 MG TAB PO SCH (18:14)
[2018-03-26] MEDS: Terazosin CAP* 1 MG PO SCH (20:33)
[2018-03-27] MEDS: Nystatin TOP POWDER* 15 GM BTL TOPICAL SCH ×4 (05:05→21:14)
[2018-03-27] MEDS: Levothyroxine TAB* 100 MCG TAB PO SCH (05:14)
[2018-03-27 07:11] LABS: ABS Basophils 0.1 10^3/ul (0-0.2); ABS Eosinophils 0.3 10^3/ul (0-0.6); ABS Lymphocytes 1.6 10^3/ul (1.0-4.8); ABS Monocytes 0.5 10^3/ul (0-0.8); ABS Neutrophils 5.1 10^3/ul (1.5-7.7); ABS Nucleated RBC 0 10^3/ul; Eosinophil % 3.7 % (0-6); Hematocrit 27 % (35-47); Hemoglobin 9.2 g/dl (12.0-16.0); Lymphocyte % 21.1 % (25-47); Mean Corpuscular HGB Conc 34 g/dl (31-36); Mean Corpuscular Hemoglobin 29 pg (27-31); Mean Corpuscular Volume 85 fL (80-97); Mean Platelet Volume 7.8 fL (7.4-10.4); Nucleated Red Blood Cells % 0; Platelet Count 367 10^3/ul (150-450); Red Blood Count 3.16 10^6/ul (4.00-5.40); Red Cell Distribution Width 15 % (10.5-15); White Blood Count 7.5 10^3/ul (3.5-10.8)
[2018-03-27] MEDS: Atorvastatin* 40 MG TAB PO SCH (08:15)
[2018-03-27] MEDS: Atenolol TAB* 50 MG PO SCH (08:16)
[2018-03-27] MEDS: Cetirizine* 10 MG TAB PO SCH (08:16)
[2018-03-27] MEDS: Sertraline* 50 MG TAB PO SCH (08:17)
[2018-03-27] MEDS: Ciprofloxacin TAB* 250 MG PO SCH ×2 (08:17→21:13)
[2018-03-27] MEDS: metroNIDAZOLE TAB* 250 MG PO SCH ×3 (08:17→21:13)
[2018-03-27] MEDS: Hydrochlorothiazide TAB* 25 MG PO SCH (08:17)
[2018-03-27] MEDS: Lactobacillus Acidophilus* 1 TAB PO SCH (08:17)
[2018-03-27] MEDS: Insulin LISPRO* 1 UNITS UNIT SUBCUT SCH ×4 (08:18→21:13)
[2018-03-27] MEDS: Insulin ISOPH/REG 70/30 (*) 1 UNITS UNIT SUBCUT SCH ×2 (08:18→17:35)
[2018-03-27] MEDS: Losartan TAB* 25 MG PO SCH (08:18)
[2018-03-27] MEDS: Venlafaxine EXT RELEASE CAP* 75 MG PO SCH (08:18)
[2018-03-27] MEDS: Omeprazole CAP* 20 MG PO SCH (08:18)
[2018-03-27] MEDS: amLODIPine TAB* 5 MG PO SCH (08:18)
[2018-03-27] MEDS ORDERED: Torsemide TAB* 20 MG PO SCH ×2 (09:00)
[2018-03-27] MEDS: Aspirin 81 mg CHEW TAB* 81 MG TAB.CHEW PO SCH (12:41)
[2018-03-27] MEDS: Oxymetazoline 0.05% NASAL SPR* 15 ML BTL LEFT NARE SCH ×2 (13:15→21:14)
[2018-03-27 15:09] LABS: EGFR Non-African American 18.7 (>60)
--- NOTE | 2018-03-27 16:04 | PN ---
Subjective Date of Service: 03/27/18 Interval History: Pt seen and examined. Meds and labs reviewed. CC: Diarrhea resolved ROS: Denied HENDRICKS/dizziness, F/C, N/V, CP, SOB, increased cough, sputum production , abd pain, diarrhea, constipation, dysuria, myalgias, arthralgias, throat pain , and new skin lesions. The rest of the 14 point ROS are unremarkable. PHYSICAL EXAM: GEN APPEARANCE: Awake, not in acute distress HEENT: NC/AT, PERRLA, moist oral mucosa, (-) throat erythema NECK: Soft, supple, (-) cervical LAD, (-)JVD HEART: S1S2 WNL, RRR, No MRG CHEST: CTA, BL, GAE, No W/R/R ABD: Soft, ND/NT, NABS 4x Q EXT: No C/C/BLLE +1 edema, improving SKIN: Warm to touch PSYCH: No active psychosis, hallucinations, depression, SI/HI Objective Active Medications: Acetaminophen (Tylenol Tab*) 650 mg PO Q4H PRN PRN Reason: FEVER/PAIN Last Admin: 03/26/18 22:29 Dose: 650 mg Albuterol (Ventolin 2.5 Mg/3 Ml Neb.Romina*) 2.5 mg INH Q2H PRN PRN Reason: SOB/WHEEZING Last Admin: 03/23/18 22:11 Dose: 2.5 mg Amlodipine Besylate (Norvasc Tab*) 10 mg PO DAILY [facility] Last Admin: 03/27/18 08:18 Dose: 10 mg Aspirin (Aspirin 81 Mg Chew Tab*) 81 mg PO DAILY [facility] Last Admin: 03/27/18 12:41 Dose: 81 mg Atenolol (Tenormin Tab*) 100 mg PO DAILY [facility] Last Admin: 03/27/18 08:16 Dose: 100 mg Atorvastatin Calcium (Lipitor*) 40 mg PO DAILY [facility] Last Admin: 03/27/18 08:15 Dose: 40 mg Cetirizine HCl (Zyrtec*) 5 mg PO DAILY [facility]; Protocol Last Admin: 03/27/18 08:16 Dose: 5 mg Ciprofloxacin (Cipro Tab*) 250 mg PO Q12HR [facility] Last Admin: 03/27/18 08:17 Dose: 250 mg Dextrose (D50w Syringe 50 Ml*) 12.5 gm IV PUSH .FOR FS < 60 - SS PRN PRN Reason: FS < 60 Fluticasone Propionate (Flonase Nasal [place] 50mcg*) 2 spray BOTH NARES DAILY@ 1800 [facility] Last Admin: 03/26/18 18:09 Dose: 2 spray Fondaparinux (Arixtra*) 1.25 mg SUBCUT Q24H [facility] Last Admin: 03/26/18 16:39 Dose: 1.25 mg Guaifenesin/Dextromethorphan (Robitussin Dm*) 10 ml PO Q6H PRN PRN Reason: COUGH Last Admin: 03/25/18 00:38 Dose: 10 ml Hydrochlorothiazide (Hydrodiuril Tab*) 25 mg PO DAILY [facility] Last Admin: 03/27/18 08:17 Dose: 25 mg Insulin Human Isoph/Insulin Regular (Humulin 70/30 (*)) 33 units SUBCUT BID WITH MEALS [facility] Insulin Human Lispro (Humalog*) 0 units SUBCUT ACHS [facility]; Protocol Last Admin: 03/27/18 12:41 Dose: 9 units Lactobacillus Rhamnosus (Lactobacillus Acidophilus*) 1 tab PO DAILY [facility] Last Admin: 03/27/18 08:17 Dose: 1 tab Levothyroxine Sodium (Synthroid Tab*) 100 mcg PO 0600 [facility] Last Admin: 03/27/18 05:14 Dose: 100 mcg Losartan Potassium (Cozaar Tab*) 100 mg PO DAILY [facility] Last Admin: 03/27/18 08:18 Dose: 100 mg Metronidazole (Flagyl Tab*) 500 mg PO TID [facility] Last Admin: 03/27/18 13:15 Dose: 500 mg Nystatin (Nystatin Top Powder*) 1 applic TOPICAL TID [facility] Last Admin: 03/27/18 13:16 Dose: 1 appful Omeprazole (Prilosec Cap*) 20 mg PO DAILY [facility] Last Admin: 03/27/18 08:18 Dose: 20 mg Oxymetazoline HCl (Afrin 0.05% Nasal [place]*) 2 spray LEFT NARE BID [facility] Stop: 03/30/18 11:25 Last Admin: 03/27/18 13:15 Dose: 2 spray Sertraline HCl (Zoloft*) 50 mg PO DAILY [facility] Last Admin: 03/27/18 08:17 Dose: 50 mg Sodium Chloride (Sodium Chloride 0.65% Nasal [place]*) 1 spray BOTH NARES Q4H PRN PRN Reason: CONGESTION Last Admin: 03/26/18 01:22 EDT Dose: 1 spray Terazosin HCl (Hytrin Cap*) 2 mg PO BEDTIME [facility] Last Admin: 03/26/18 20:33 Dose: 2 mg Venlafaxine HCl (Effexor Xr Cap*) 150 mg PO DAILY [facility] Last Admin: 03/27/18 08:18 Dose: 150 mg Vital Signs - 8 hr 03/27/18 03/27/18 08:04 15:17 Temperature 97.5 F 98.8 F Pulse Rate 72 73 Respiratory 16 18 Rate Blood Pressure 125/56 113/47 (mmHg) O2 Sat by Pulse 95 93 Oximetry Oxygen Devices in Use Now: None Result Diagrams: 03/27/18 06:02 03/27/18 05:53 Microbiology and Other Data: Microbiology 03/23/18 11:43 Aerobic Blood Culture - Preliminary Blood Venous No Growth Day 1 Anaerobic Blood Culture - Preliminary No Growth Day 1 03/23/18 11:20 Aerobic Blood Culture - Preliminary Blood Venous No Growth Day 1 Anaerobic Blood Culture - Preliminary No Growth Day 1 03/23/18 10:40 Aerobic Blood Culture - Preliminary Blood Venous No Growth Day 1 Anaerobic Blood Culture - Final Not Reportable 03/23/18 19:50 Stool Gross Appearance - Final Stool C. difficile DNA Amplification - Final 027 Presumptive NEGATIVE Toxigenic C.diff NEGATIVE Stool Lactoferrin - Final Stool Occult Blood (ANGELA) - Final 03/23/18 12:00 Influenza Types A,B Antigen - Final Nasal Specimen received for Influenza A/B Molecular testing Assess/Plan/Problems-Billing Assessment: - Patient Problems (1) SOB (shortness of breath) Current Visit: Yes Status: Acute Code(s): R06.02 - SHORTNESS OF BREATH SNOMED Code(s): 303122673 Comment: -Improved after trial of diuretics, however, given increasing BUN/Crea despite lowered dose, will hold for now and will send for urine lytes to determine FENa and FE-Urea to see if consistent with above impression of pre-renal due to diuresis---may resume diuresis when euvolemic (Torsemide 10 mg 3x/wk) -CHF may have been induced by anemia? -Likely due to diastolic CHF in the setting of anemia---last 2D echo done on 11/07 -Continue Atenolol -Will place pt on ASA -S/P 1 unit PRBC transfusion on 03/25/18 -BNP improved -Continue Sodium diet in addition to Heart healthy diet -V/Q scan: Low prob. for PE (2) Anemia Current Visit: No Status: Acute Code(s): D64.9 - ANEMIA, UNSPECIFIED SNOMED Code(s): 072657150 Comment: -S/P 1unit PRBC transfusion on 03/25/18 -Will defer Iron studies after a few weeks post transfusion with PCP (3) Diarrhea Current Visit: Yes Status: Acute Code(s): R19.7 - DIARRHEA, UNSPECIFIED SNOMED Code(s): 26200077 Comment: -Resolved -Awaiting stool culture result -(-)Shiga toxin 1&2 -C. diff (-), stool -Lactoferrin (+) -Continue Flagyl and Cipro, D#5/ -Blood Cx (-) x 4D -Awaiting stool culture data (4) Weakness Current Visit: Yes Status: Acute Code(s): R53.1 - WEAKNESS SNOMED Code(s) : 67923024 Comment: -Likely due to above (5) Diabetes 1.5, managed as type 2 Current Visit: Yes Status: Acute Code(s): E10.9 - TYPE 1 DIABETES MELLITUS WITHOUT COMPLICATIONS SNOMED Code(s): 924073703 Comment: -Will Increase Insulin regimen as ordered -Continue watchful waiting (6) HTN (hypertension) Current Visit: No Status: Chronic Priority: Medium Code(s): I10 - ESSENTIAL (PRIMARY) HYPERTENSION SNOMED Code(s): 85623639 Comment: -Better controled with addition of Hytrin to her regimen -Continue Amlodipine, Atenolol, HCTZ, Losartan, and Hytrin -Continue watchful waiting (7) DVT prophylaxis Current Visit: Yes Status: Acute Code(s): CJJ6238 - SNOMED Code(s): 636234247 Comment: -Continue Fondaparinux due to her allergy to Heparin Status and Disposition: -Appreciate Dr. Marie input and at this time pt is compliant with current plans and seem to have capacity -Appreciate PT re-eval---will wait for any needs identified during subsequent F/ Us -For possible D/C in 1-2 days
[2018-03-27] MEDS: Fondaparinux* 2.5 MG/0.5 ML SYRINGE SUBCUT SCH (17:36)
[2018-03-27] MEDS: Fluticasone NASAL SPRAY 50MCG* 16 gm SPRAY BTL BOTH NARES SCH (17:36)
[2018-03-27] MEDS: Terazosin CAP* 1 MG PO SCH (21:13)
[2018-03-27] MEDS: Acetaminophen TAB* 325 MG PO PRN (21:16)
[2018-03-28] MEDS: Levothyroxine TAB* 100 MCG TAB PO SCH (06:07)
[2018-03-28] MEDS: metroNIDAZOLE TAB* 250 MG PO SCH ×3 (08:58→21:29)
[2018-03-28] MEDS: Lactobacillus Acidophilus* 1 TAB PO SCH (08:58)
[2018-03-28] MEDS: Oxymetazoline 0.05% NASAL SPR* 15 ML BTL LEFT NARE SCH ×2 (08:58→21:29)
[2018-03-28] MEDS: Sertraline* 50 MG TAB PO SCH (08:58)
[2018-03-28] MEDS: Ciprofloxacin TAB* 250 MG PO SCH ×2 (08:58→21:30)
[2018-03-28] MEDS: Atenolol TAB* 50 MG PO SCH (08:58)
[2018-03-28] MEDS: Hydrochlorothiazide TAB* 25 MG PO SCH (08:58)
[2018-03-28] MEDS: Venlafaxine EXT RELEASE CAP* 75 MG PO SCH (08:59)
[2018-03-28] MEDS: Atorvastatin* 40 MG TAB PO SCH (08:59)
[2018-03-28] MEDS: Cetirizine* 10 MG TAB PO SCH (08:59)
[2018-03-28] MEDS: amLODIPine TAB* 5 MG PO SCH (09:00)
[2018-03-28] MEDS: Losartan TAB* 25 MG PO SCH (09:00)
[2018-03-28] MEDS: Omeprazole CAP* 20 MG PO SCH (09:00)
[2018-03-28] MEDS: Insulin ISOPH/REG 70/30 (*) 1 UNITS UNIT SUBCUT SCH ×2 (09:00→17:16)
[2018-03-28] MEDS: Aspirin 81 mg CHEW TAB* 81 MG TAB.CHEW PO SCH (09:00)
[2018-03-28] MEDS: Insulin LISPRO* 1 UNITS UNIT SUBCUT SCH ×4 (09:00→21:31)
[2018-03-28] MEDS: Nystatin TOP POWDER* 15 GM BTL TOPICAL SCH ×3 (09:01→21:32)
[2018-03-28 10:18] LABS: EGFR Non-African American 18.2 (>60)
[2018-03-28] MEDS ORDERED: Magnesium Sulfate IV* 3 GM in NS 0.9% 100 ML* 100 ML IVPB ONE (11:00)
--- NOTE | 2018-03-28 16:14 | PN ---
Subjective Date of Service: 03/28/18 Interval History: on RA reports episode of diarrhea with breakfast, RLQ pain. no chest pain, f/c/n/v/ Has been accepted to [facility] up to 2.58 Objective Active Medications: Acetaminophen (Tylenol Tab*) 650 mg PO Q4H PRN PRN Reason: FEVER/PAIN Last Admin: 03/27/18 21:16 Dose: 650 mg Albuterol (Ventolin 2.5 Mg/3 Ml Neb.Romina*) 2.5 mg INH Q2H PRN PRN Reason: SOB/WHEEZING Last Admin: 03/23/18 22:11 Dose: 2.5 mg Amlodipine Besylate (Norvasc Tab*) 10 mg PO DAILY [facility] Last Admin: 03/28/18 09:00 Dose: 10 mg Aspirin (Aspirin 81 Mg Chew Tab*) 81 mg PO DAILY [facility] Last Admin: 03/28/18 09:00 Dose: 81 mg Atenolol (Tenormin Tab*) 100 mg PO DAILY [facility] Last Admin: 03/28/18 08:58 Dose: 100 mg Atorvastatin Calcium (Lipitor*) 40 mg PO DAILY [facility] Last Admin: 03/28/18 08:59 Dose: 40 mg Cetirizine HCl (Zyrtec*) 5 mg PO DAILY [facility]; Protocol Last Admin: 03/28/18 08:59 Dose: 5 mg Ciprofloxacin (Cipro Tab*) 250 mg PO Q12HR [facility] Last Admin: 03/28/18 08:58 Dose: 250 mg Dextrose (D50w Syringe 50 Ml*) 12.5 gm IV PUSH .FOR FS < 60 - SS PRN PRN Reason: FS < 60 Fluticasone Propionate (Flonase Nasal [place] 50mcg*) 2 spray BOTH NARES DAILY@ 1800 [facility] Last Admin: 03/27/18 17:36 Dose: 2 spray Guaifenesin/Dextromethorphan (Robitussin Dm*) 10 ml PO Q6H PRN PRN Reason: COUGH Last Admin: 03/25/18 00:38 Dose: 10 ml Insulin Human Isoph/Insulin Regular (Humulin 70/30 (*)) 33 units SUBCUT BID WITH MEALS [facility] Last Admin: 03/28/18 09:00 Dose: 33 units Insulin Human Lispro (Humalog*) 0 units SUBCUT ACHS [facility]; Protocol Last Admin: 03/28/18 12:30 Dose: 12 units Lactobacillus Rhamnosus (Lactobacillus Acidophilus*) 1 tab PO DAILY [facility] Last Admin: 03/28/18 08:58 Dose: 1 tab Levothyroxine Sodium (Synthroid Tab*) 100 mcg PO 0600 [facility] Last Admin: 03/28/18 06:07 Dose: 100 mcg Losartan Potassium (Cozaar Tab*) 100 mg PO DAILY [facility] Last Admin: 03/28/18 09:00 Dose: 100 mg Metronidazole (Flagyl Tab*) 500 mg PO TID [facility] Last Admin: 03/28/18 13:31 Dose: 500 mg Nystatin (Nystatin Top Powder*) 1 applic TOPICAL TID [facility] Last Admin: 03/28/18 13:31 Dose: 1 appful Omeprazole (Prilosec Cap*) 20 mg PO DAILY [facility] Last Admin: 03/28/18 09:00 Dose: 20 mg Oxymetazoline HCl (Afrin 0.05% Nasal [place]*) 2 spray LEFT NARE BID [facility] Stop: 03/30/18 11:25 Last Admin: 03/28/18 08:58 Dose: 2 spray Sertraline HCl (Zoloft*) 50 mg PO DAILY [facility] Last Admin: 03/28/18 08:58 Dose: 50 mg Sodium Chloride (Sodium Chloride 0.65% Nasal [place]*) 1 spray BOTH NARES Q4H PRN PRN Reason: CONGESTION Last Admin: 03/26/18 01:22 EDT Dose: 1 spray Terazosin HCl (Hytrin Cap*) 2 mg PO BEDTIME [facility] Last Admin: 03/27/18 21:13 Dose: 2 mg Venlafaxine HCl (Effexor Xr Cap*) 150 mg PO DAILY [facility] Last Admin: 03/28/18 08:59 Dose: 150 mg Vital Signs - 8 hr 03/28/18 11:05 Temperature 98.1 F Pulse Rate 72 Respiratory 16 Rate Blood Pressure 129/56 (mmHg) O2 Sat by Pulse 95 Oximetry Oxygen Devices in Use Now: None Appearance: NAD Eyes: No Scleral Icterus, PERRLA Ears/Nose/Mouth/Throat: NL Teeth, Lips, Gums Neck: NL Appearance and Movements; NL JVP Respiratory: Symmetrical Chest Expansion and Respiratory Effort, Clear to Auscultation Cardiovascular: NL Sounds; No Murmurs; No JVD Abdominal: - - right lower quadrant tenderness, soft, nondistended, no rebound or guarding. Extremities: No Edema Skin: No Rash or Ulcers, No Nodules or Sclerosis Neurological: Alert and Oriented x 3, NL Sensation, NL Muscle Strength and Tone Nutrition: Taking PO's Result Diagrams: 03/27/18 06:02 03/28/18 09:39 Additional Lab and Data: Laboratory Results - last 24 hr 03/28/18 03/28/18 03/28/18 07:16 09:39 11:28 Sodium 136 Potassium 4.0 Chloride 101 Carbon Dioxide 25 Anion Gap 10 BUN 55 H Creatinine 2.58 H Est GFR ( Amer) 22.0 Est GFR (Non-Af Amer) 18.2 BUN/Creatinine Ratio 21.3 H Glucose 293 H POC Glucose (mg/dL) 218 H 342 H Calcium 8.5 L Magnesium 1.5 L Ur Random Creatinine Ur Random Sodium Ur Random Urea Nitrogn 03/28/18 03/28/18 03/28/18 15:49 16:38 20:25 Sodium Potassium Chloride Carbon Dioxide Anion Gap BUN Creatinine Est GFR ( Amer) Est GFR (Non-Af Amer) BUN/Creatinine Ratio Glucose POC Glucose (mg/dL) 352 H 236 H Calcium Magnesium Ur Random Creatinine 61.13 Ur Random Sodium 67 Ur Random Urea Nitrogn 551 Microbiology and Other Data: Microbiology 03/23/18 11:43 Blood Venous Aerobic Blood Culture - Final No Growth Day 5 03/23/18 11:43 Blood Venous Anaerobic Blood Culture - Final No Growth Day 5 03/23/18 11:20 Blood Venous Aerobic Blood Culture - Final No Growth Day 5 03/23/18 11:20 Blood Venous Anaerobic Blood Culture - Final No Growth Day 5 03/23/18 10:40 Blood Venous Aerobic Blood Culture - Final No Growth Day 5 03/23/18 10:40 Blood Venous Anaerobic Blood Culture - Final Not Reportable 03/26/18 09:50 Stool Stool Culture - Final 03/26/18 09:50 Stool Stool Gross Appearance - Final 03/26/18 09:50 Stool Shiga Toxin I & II - Final Negative Shiga Toxin 1 & 2 03/25/18 11:35 Stool Stool Occult Blood (ANGELA) - Final 03/23/18 19:50 Stool Stool Gross Appearance - Final 03/23/18 19:50 Stool C. difficile DNA Amplification - Final 027 Presumptive NEGATIVE Toxigenic C.diff NEGATIVE 03/23/18 19:50 Stool Stool Lactoferrin - Final 03/23/18 19:50 Stool Stool Occult Blood (ANGELA) - Final 03/23/18 12:00 Nasal Influenza Types A,B Antigen - Final Specimen received for Influenza A/B Molecular testing Assess/Plan/Problems-Billing Assessment: 72 yo female high utilizer H recurrent C diff infections, diastolic CHF, recent diverticulitis/UTI admission discharged on cipro &flagyl presenting with acute hypoxic respiratory failure 2/2 acute disastolic CHF. Course complicated by diarrhea, LANE. APS case opened and Psych consulted. Accepted to [facility]. - Patient Problems (1) LANE (acute kidney injury) Current Visit: No Status: Acute Priority: Medium Code(s): N17.9 - ACUTE KIDNEY FAILURE, UNSPECIFIED SNOMED Code(s): 62414575 Comment: worsened, BLOCK CUBER 2.6 from 1.9 on admission Acute on chronic kidney injury Avoid nephrotoxic medications, hold losartan. Continue to follow BMP FeNa 2.1%, potential ATN/intrinsic. (2) SOB (shortness of breath) Current Visit: Yes Status: Acute Code(s): R06.02 - SHORTNESS OF BREATH SNOMED Code(s): 821529943 Comment: -resolved, likely acute hypoxic respiratory failure secondary to acute diastolic CHF. of note her home dose is orsemide 10 mg 3x/wk) -CHF may have been induced by anemia? -last 2D echo done on 12/26/17 -Continue Atenolol -continue ASA -S/P 1 unit PRBC transfusion on 03/25/18 -BNP improved -Continue low Sodium diet, consistent carbohydrate diet -V/Q scan: Low prob. for PE (3) Diarrhea Current Visit: Yes Status: Acute Code(s): R19.7 - DIARRHEA, UNSPECIFIED SNOMED Code(s): 01296281 Comment: no enteric pathogens. -(-)Shiga toxin 1&2 -C. diff (-), stool . Hx of recurrent Cdiff -Lactoferrin (+) -Continue Flagyl and Cipro, D#6/7 -Blood Cx (-) x 4D - starting immodium (4) DVT prophylaxis Current Visit: Yes Status: Acute Code(s): MVS1526 - SNOMED Code(s): 862504445 Comment: -SCDs. allergy to Heparin (5) Diabetes 1.5, managed as type 2 Current Visit: Yes Status: Acute Code(s): E10.9 - TYPE 1 DIABETES MELLITUS WITHOUT COMPLICATIONS SNOMED Code(s): 920805273 Comment: poorly controlled in 300s, A1C 11.7 -Will Increase Insulin regimen as ordered Status and Disposition: -Appreciate Dr. Marie input and at this time pt is compliant with current plans and seem to have capacity -Appreciate PT re-eval---will wait for any needs identified during subsequent F/ Us -For possible D/C in 1-2 days
[2018-03-28] MEDS: Fluticasone NASAL SPRAY 50MCG* 16 gm SPRAY BTL BOTH NARES SCH (17:16)
[2018-03-28] MEDS: Terazosin CAP* 1 MG PO SCH (21:31)
[2018-03-29] MEDS ORDERED: Loperamide CAP* 2 MG PO PRN (00:58)
[2018-03-29] MEDS: GuaiFENesin DM* 5 ML UDC PO PRN (03:02)
[2018-03-29] MEDS: Acetaminophen TAB* 325 MG PO PRN (03:02)
[2018-03-29] MEDS: Levothyroxine TAB* 100 MCG TAB PO SCH (05:15)
[2018-03-29 06:09] LABS: ABS Basophils 0.1 10^3/ul (0-0.2); ABS Eosinophils 0.3 10^3/ul (0-0.6); ABS Lymphocytes 1.9 10^3/ul (1.0-4.8); ABS Monocytes 0.6 10^3/ul (0-0.8); ABS Neutrophils 5.6 10^3/ul (1.5-7.7); ABS Nucleated RBC 0 10^3/ul; Eosinophil % 3.8 % (0-6); Hematocrit 27 % (35-47); Hemoglobin 9.1 g/dl (12.0-16.0); Lymphocyte % 22.6 % (25-47); Mean Corpuscular HGB Conc 33 g/dl (31-36); Mean Corpuscular Hemoglobin 28 pg (27-31); Mean Corpuscular Volume 85 fL (80-97); Mean Platelet Volume 7.4 fL (7.4-10.4); Nucleated Red Blood Cells % 0; Platelet Count 402 10^3/ul (150-450); Red Blood Count 3.19 10^6/ul (4.00-5.40); Red Cell Distribution Width 15 % (10.5-15); White Blood Count 8.5 10^3/ul (3.5-10.8)
[2018-03-29 06:53] LABS: EGFR Non-African American 18.8 (>60)
[2018-03-29] MEDS ORDERED: Insulin ISOPH/REG 70/30 (*) 1 UNITS UNIT SUBCUT SCH (08:00)
[2018-03-29] MEDS: Insulin LISPRO* 1 UNITS UNIT SUBCUT SCH ×2 (08:18→12:52)
[2018-03-29] MEDS: Atenolol TAB* 50 MG PO SCH (08:22)
[2018-03-29] MEDS: Venlafaxine EXT RELEASE CAP* 75 MG PO SCH (08:23)
[2018-03-29] MEDS: metroNIDAZOLE TAB* 250 MG PO SCH ×2 (08:24→14:36)
[2018-03-29] MEDS: Atorvastatin* 40 MG TAB PO SCH (08:24)
[2018-03-29] MEDS: Lactobacillus Acidophilus* 1 TAB PO SCH (08:24)
[2018-03-29] MEDS: amLODIPine TAB* 5 MG PO SCH (08:26)
[2018-03-29] MEDS: Aspirin 81 mg CHEW TAB* 81 MG TAB.CHEW PO SCH (08:26)
[2018-03-29] MEDS: Cetirizine* 10 MG TAB PO SCH (08:27)
[2018-03-29] MEDS: Ciprofloxacin TAB* 250 MG PO SCH (08:28)
[2018-03-29] MEDS: Sertraline* 50 MG TAB PO SCH (08:28)
[2018-03-29] MEDS: Omeprazole CAP* 20 MG PO SCH (08:29)
[2018-03-29] MEDS: Oxymetazoline 0.05% NASAL SPR* 15 ML BTL LEFT NARE SCH (09:37)
[2018-03-29] MEDS: Nystatin TOP POWDER* 15 GM BTL TOPICAL SCH ×2 (09:38→14:37)
[2018-03-29 09:59] VITALS: BP 124/56
--- NOTE | 2018-03-29 14:07 | DS ---
DATE OF ADMISSION: 03/23/2018. DATE OF DISCHARGE: 03/29/2018. ADMITTING PROVIDER: Ivy Zamora NP. PRIMARY CARE PHYSICIAN: Dr. Zurita. ATTENDING PHYSICIAN ON THE DAY OF DISCHARGE: Dr. Nito Bowman. CHIEF COMPLAINT: Shortness of breath, abdominal pain, weakness, diarrhea. PRINCIPAL DIAGNOSES: Acute hypoxic respiratory failure in the setting of acute diastolic CHF exacerbation; recent diverticulitis and antibiotic associated diarrhea; acute kidney injury. HISTORY OF PRESENT ILLNESS AND HOSPITAL COURSE: Kat Montemayor is a 72-year- old female with a past medical history of insulin dependent type 2 diabetes mellitus, pulmonary embolism, stage 3 chronic kidney disease, hypertension, depression, PTSD, recurrent C. diff, subdural hematoma, and GERD who was recently admitted to the hospital for a five day stay with diverticulitis and UTI, sent home on Cipro and Flagyl. Please see history and physical of Ivy Zamora NP for full details. The patient reportedly returned home, exhausted, more weak, and continued diarrhea. She stopped eating because she did not want to have more bowel movements. She woke up in the middle of the night and felt like she could not catch her breath. This was worse with exertion. She was satting 87 percent on room air. Chest x-ray showed pulmonary interstitial edema and a BNP was 713, and she was admitted to the hospital for concern for acute hypoxic respiratory failure secondary to acute diastolic CHF exacerbation. She was treated with IV diuretics and slowly weaned off supplemental oxygen. She had a lung VQ scan which demonstrated no evidence for pulmonary embolism on March 23. Her course was complicated by worsening kidney function, an initial creatinine of 1.8 and the christiano to a high of 2.58, on the day of discharge is 2.50; previous baseline has been between 1.6 and 2.0. She had FEUrea of 2.1% consistent with potential ATN or intrinsic process. Her diuretics were held. She had tested negative for C. diff. Her stool cultures were negative for shiga toxin or other enteric pathogens. She was started on Imodium. She is about to finish her Cipro and Flagyl. She has not had diarrhea for the last two days of discharge. She was evaluated by Dr. Cabello of Psychiatry for capacity as she was initially refusing referred placement for a longterm facility. She has a standing APS case open in regard to concern for unsafe and unsanitary living conditions. She, with her discussion with Dr. Cabello, did consent to [facility] short- term rehab placement and he deemed her to have capacity to make this decision at that time (03/23/2018). She is being referred to [facility]. Her reported discharge weight is 102.0 kg. The reported intake weight was 99.79 kg. BNP dropped to 113 on March 25. Her glucose was poorly controlled and her 70/30 was titrated up. She had a hemoglobin A1c on the last admission of 11.5% on 03/18/2018. DISCHARGE MEDICATIONS: 1. Tylenol 650 mg p.o. q.4 hours prn. 2. Amlodipine 10 mg p.o. daily. 3. Atenolol 100 mg p.o. daily. 4. Atorvastatin 40 mg p.o. daily. 5. Ciprofloxacin 250 mg p.o. q.12 hours for 2 more days. 6. Flonase two sprays both nares daily. 7. Lactobacillus one tab p.o. daily. 8. Levothyroxine 100 mcg p.o. 0600 hours. 9. Flagyl 500 mg p.o. t.i.d. for 2 more days. 10. Omeprazole 20 mg p.o. daily. 11. Sertraline 50 mg p.o. daily. 12. Effexor 150 mg p.o. daily. 13. Aspirin 81 mg daily. 14. Imodium 2 mg p.o. prn after every loose bowel movement. 15. Insulin 70/30 37 units b.i.d. with meals, increased from 30 b.i.d. prior. 16. Losartan 100 mg/25 mg daily, but to be held for 3 days. 17. Melatonin 3 mg daily. 18. MiraLax 17 gm p.o. every 40 hours prn for constipation. 19. Sennosides/Docusate sodium two tabs p.o. daily prn for constipation. 20. Simethicone 125 mg p.o. a.c. prn for bloating. DISCHARGE DIET: Carbohydrate consistent, heart-healthy, unchanged. FOLLOW-UP: Please follow-up with Dr. Zakia Zurita within four days of discharge from [facility]. She should have a repeat BMP drawn on April 03 to recheck her kidney function. TIME SPENT ON THIS DISCHARGE: 45 minutes. [id number]/[facility] #: [id number] AZAEL
[2018-03-29] MEDS ORDERED: Neomycin/Polym/Bacit TOP OINT* 15 GM TOPICAL SCH (21:00)
== END 2018-03-29 16:35 | DRG 291 ==
LOC: ED 09:49 → MEDTELE 13:12
PROVIDERS: ADMIT Internal Medicine; ATTEND Internal Medicine
PROC: 30233N1 Transfusion of Nonautologous Red Blood Cells into Peripheral Vein, Percutaneous Approach (ICD-10-PCS; principal; 2018-03-25)
DX: I13.0 Hypertensive heart and chronic kidney disease with heart failure and stage 1 through stage 4 chronic kidney disease, or unspecified chronic kidney disease (principal); I50.33 Acute on chronic diastolic (congestive) heart failure; J96.01 Acute respiratory failure with hypoxia; N17.9 Acute kidney failure, unspecified; K52.1 Toxic gastroenteritis and colitis; K57.92 Diverticulitis of intestine, part unspecified, without perforation or abscess without bleeding; N39.0 Urinary tract infection, site not specified; N18.3 Chronic kidney disease, stage 3 (moderate); F32.9 Major depressive disorder, single episode, unspecified; F43.10 Post-traumatic stress disorder, unspecified; K21.9 Gastro-esophageal reflux disease without esophagitis; E66.9 Obesity, unspecified; D64.9 Anemia, unspecified; E03.9 Hypothyroidism, unspecified; M19.90 Unspecified osteoarthritis, unspecified site; E11.319 Type 2 diabetes mellitus with unspecified diabetic retinopathy without macular edema; F41.0 Panic disorder [episodic paroxysmal anxiety]; E83.42 Hypomagnesemia; Z62.810 Personal history of physical and sexual abuse in childhood; G89.29 Other chronic pain; K58.0 Irritable bowel syndrome with diarrhea; E11.40 Type 2 diabetes mellitus with diabetic neuropathy, unspecified; E11.65 Type 2 diabetes mellitus with hyperglycemia; T36.8X5A Adverse effect of other systemic antibiotics, initial encounter; J45.909 Unspecified asthma, uncomplicated; Z92.3 Personal history of irradiation; Z90.49 Acquired absence of other specified parts of digestive tract; Z90.89 Acquired absence of other organs; Z85.3 Personal history of malignant neoplasm of breast; Z83.6 Family history of other diseases of the respiratory system; Z80.3 Family history of malignant neoplasm of breast; Z81.8 Family history of other mental and behavioral disorders; Z81.1 Family history of alcohol abuse and dependence; Z87.440 Personal history of urinary (tract) infections; Z87.891 Personal history of nicotine dependence; Z86.718 Personal history of other venous thrombosis and embolism; Z86.711 Personal history of pulmonary embolism; Z79.4 Long term (current) use of insulin; Z88.8 Allergy status to other drugs, medicaments and biological substances; Z88.5 Allergy status to narcotic agent; Z91.14 Patient's other noncompliance with medication regimen; Z79.82 Long term (current) use of aspirin; Z99.81 Dependence on supplemental oxygen; Z68.36 Body mass index [BMI] 36.0-36.9, adult; Y92.9 Unspecified place or not applicable; Z87.820 Personal history of traumatic brain injury
CPT/HCPCS: 36415; 70450; 71045; 78582; 80048; 80053; 82140; 82150; 82272; 82550; 82570; 82803; 82947; 83605; 83630; 83690; 83735; 83880; 84100; 84145; 84300; 84484; 84540; 85025; 85379; 85610; 85730; 86140; 86850; 86900; 86901; 86922; 87040; 87045; 87046; 87077; 87493; 87899; 93005; 99284; A9270-GY; A9540; A9558; G8978-GP-CK; G8979-GP-CI; J1940; J2270; J3475; P9040

== ENCOUNTER 2018-07-17 14:14 | Emergency (ER) | payer MEDICARE ==
--- NOTE | 2018-07-17 15:29 | UC ---
Nausea/Vomiting/Diarrhea HPI - HPI Summary HPI Summary: 72-year-old woman comes in with a chief complaint of diarrhea for 3 days. Patient has history of C. difficile in 2017. No recent antibiotics. 3 days ago she had 2 episodes of diarrhea. 2 days ago she had no bowel movements. Yesterday she had diarrhea continuously all day. No abdominal pain. No fevers. She urinates frequently. She reports because she is on a diuretic she urinates frequently. She also wonders if she has a UTI. No flank pain. - History of Current Complaint Chief Complaint: UCGU Stated Complaint: POSS C-DIFF Time Seen by Provider: 07/17/18 15:12 Hx Last Menstrual Period: na Pain Intensity: 0 - Allergies/Home Medications Allergies/Adverse Reactions: Allergies Allergy/AdvReac Type Severity Reaction Status Date / Time bupropion [From Wellbutrin] Allergy Intermediate Hives Verified 07/17/18 14:33 heparin Allergy Hives Verified 07/17/18 14:32 hydrocodone Allergy Rash Verified 07/17/18 14:32 metformin Allergy Itching Verified 07/17/18 14:32 Home Medications: Home Medications Furosemide [Lasix] 20 mg PO DAILY WITH MEAL 07/17/18 [History Confirmed 07/17/18 ] Insulin Glargine,Hum.rec.anlog [Lantus] 100 unit SC DAILY WITH MEAL 07/17/18 [ History Confirmed 07/17/18] Levothyroxine TAB* [Synthroid 100 MCG TAB*] 137 mcg PO 0600 07/17/18 [History Confirmed 07/17/18] Loperamide HCl [Loperamide] 2 mg PO DAILY WITH MEAL 07/17/18 [History Confirmed 07/17/18] Potassium Chlor TAB* [Klor Con ER TAB*] 10 meq PO DAILY 07/17/18 [History Confirmed 07/17/18] PMH/Surg Hx/FS Hx/Imm Hx Previously Healthy: Yes Endocrine History: Diabetes, Hypothyroidism, Dyslipidemia Cardiovascular History: Hypertension, Congestive Heart Failure Respiratory History: COPD - Surgical History Surgical History: Yes Surgery Procedure, Year, and Place: APPENDECTOMY, CHOLECYSTECTOMY, INTESTINAL, TONSILLECTOMY - Family History Known Family History: Positive: Respiratory Disease - COPD. Parents both from emphysema. , Other - Father - CVA, Sister - breast CA Negative: Cardiac Disease Family History: depression; ETOH abuse - Social History Alcohol Use: Rare Alcohol Amount: 2 per year Substance Use Type: Marijuana Substance Use Comment - Amount & Last Used: a year ago Smoking Status (MU): Former Smoker Type: Cigarettes Amount Used/How Often: 1ppd Length of Time of Smoking/Using Tobacco: 18 years Have You Smoked in the Last Year: No When Did the Patient Quit Smoking/Using Tobacco: 06/23/1984 - Immunization History Most Recent Influenza Vaccination: 03/18/18 Most Recent Tetanus Shot: unk Most Recent Pneumonia Vaccination: 2012 Review of Systems All Other Systems Reviewed And Are Negative: Yes Constitutional: Positive: Negative Skin: Positive: Negative Eyes: Positive: Negative ENT: Positive: Negative Respiratory: Positive: Negative Cardiovascular: Positive: Negative Gastrointestinal: Positive: Diarrhea Genitourinary: Positive: Frequency Motor: Positive: Negative Neurovascular: Positive: Negative Musculoskeletal: Positive: Negative Neurological: Positive: Negative Psychological: Positive: Negative Is Patient Immunocompromised?: No Physical Exam Triage Information Reviewed: Yes Appearance: Well-Appearing, No Pain Distress, Well-Nourished Vital Signs: Initial Vital Signs Temp 98.2 F 07/17/18 14:28 Pulse 80 07/17/18 14:28 Resp 18 07/17/18 14:28 BP 118/60 07/17/18 14:28 Pulse Ox 99 07/17/18 14:28 Vital Signs Reviewed: Yes Eye Exam: Normal Eyes: Positive: Conjunctiva Clear Neck exam: Normal Neck: Positive: Supple Respiratory: Positive: Lungs clear, Normal breath sounds, No respiratory distress Cardiovascular: Positive: RRR Abdomen Description: Positive: Nontender, Soft. Negative: CVA Tenderness (R), CVA Tenderness (L) Bowel Sounds: Positive: Present Musculoskeletal Exam: Normal Musculoskeletal: Positive: Strength Intact, ROM Intact Neurological Exam: Normal Neurological: Positive: Alert, Muscle Tone Normal Psychological Exam: Normal Psychological: Positive: Age Appropriate Behavior Skin Exam: Normal Naus/Vom/Diarrhea Course/Dx - Course Course Of Treatment: Patient was unable to urinate in clinic. Patient sent home with a stool sample kit and also a urine kit. Patient will follow-up with primary care physician and will follow up on these lab results. Patient knows if she gets worse she should get reevaluated right away. - Differential Dx/Diagnosis Provider Diagnosis: Diarrhea Discharge - Sign-Out/Discharge Documenting (check all that apply): Patient Departure All imaging exams completed and their final reports reviewed: No Studies - Discharge Plan Condition: Stable Disposition: HOME Patient Education Materials: Acute Diarrhea (ED) Referrals: Zakia Zurita MD [Primary Care Provider] - Additional Instructions: FOLLOW UP WITH YOUR DOCTOR IF NOT COMPLETELY IMPROVED. GET RECHECKED FOR ANY WORSENING OF YOUR CONDITION; PAIN, FEVER, YOU FEEL ILL OR QUESTIONS OR CONCERNS. - Billing Disposition and Condition Condition: STABLE Disposition: Home
[2018-07-17 17:21] VITALS: BP 120/76
== END 2018-07-17 17:00 | disposition home or self-care (01) ==
LOC: UCEAST 14:14
DX: R19.7 Diarrhea, unspecified (principal); E11.9 Type 2 diabetes mellitus without complications; J44.9 Chronic obstructive pulmonary disease, unspecified; I11.0 Hypertensive heart disease with heart failure; I50.9 Heart failure, unspecified; Z87.891 Personal history of nicotine dependence; Z79.899 Other long term (current) drug therapy; E03.9 Hypothyroidism, unspecified; Z79.4 Long term (current) use of insulin; Z88.8 Allergy status to other drugs, medicaments and biological substances; Z88.5 Allergy status to narcotic agent
CPT/HCPCS: 99212; G0463

== ENCOUNTER 2018-08-13 10:16 | Emergency (ER) | payer MEDICARE ==
[2018-08-13] MEDS ORDERED: oxyCODONE/Acetamin 5/325 MG* TAB PO ONE (10:57)
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
[2018-08-13] MEDS ORDERED: Ketorolac INJ* 30 MG/ML 1 ML VIAL IM ONE (13:00)
[2018-08-13 13:17] VITALS: BP 175/87
== END 2018-08-13 13:15 | disposition home or self-care (01) ==
LOC: ED 10:16
DX: S49.91XA Unspecified injury of right shoulder and upper arm, initial encounter (principal); M19.011 Primary osteoarthritis, right shoulder; W06.XXXA Fall from bed, initial encounter; Y92.003 Bedroom of unspecified non-institutional (private) residence as the place of occurrence of the external cause; E11.22 Type 2 diabetes mellitus with diabetic chronic kidney disease; I12.9 Hypertensive chronic kidney disease with stage 1 through stage 4 chronic kidney disease, or unspecified chronic kidney disease; N18.3 Chronic kidney disease, stage 3 (moderate); F32.9 Major depressive disorder, single episode, unspecified; Z99.81 Dependence on supplemental oxygen; Z88.5 Allergy status to narcotic agent; Z88.8 Allergy status to other drugs, medicaments and biological substances; Z87.891 Personal history of nicotine dependence
CPT/HCPCS: 96372; 96374; 99282; A9270-GY; J1885

== ENCOUNTER 2018-12-20 03:44 | Inpatient (IN) | payer MEDICARE ==
[2018-12-20] MEDS ORDERED: NS 0.9% 1000 ML** 1,000 ML IV.FLUID IV ONE (04:02)
[2018-12-20] MEDS ORDERED: Acetaminophen TAB* 325 MG PO ONE (04:03)
[2018-12-20] MEDS ORDERED: LORazepam INJ* 2 MG/ML 1 ML VIAL IV PUSH ONE (04:04)
[2018-12-20] MEDS ORDERED: Lorazepam PYXIS KEY PRN (04:04)
[2018-12-20] MEDS ORDERED: Piperacillin/Tazobac ADVAN(*) 3.375 GM in NS 0.9% 100 ML* 100 ML IVPB ONE (04:05)
[2018-12-20] MEDS ORDERED: Ketorolac INJ* 30 MG/ML 1 ML VIAL IV PUSH ONE (04:05)
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
[2018-12-20] MEDS ORDERED: Lorazepam PYXIS KEY ONE (04:08)
[2018-12-20 04:44] LABS: ABS Eosinophils 0.2 10^3/ul (0-0.6); ABS Lymphocytes 0.4 10^3/ul (1.0-4.8); ABS Monocytes 0.4 10^3/ul (0-0.8); Eosinophil % 1.1 %; Hematocrit 28 % (35-47); Hemoglobin 9.2 g/dL (12.0-16.0); Mean Corpuscular HGB Conc 33 g/dL (31-36); Mean Corpuscular Hemoglobin 27 pg (27-31); Mean Corpuscular Volume 83 fL (80-97); Platelet Count 385 10^3/uL (150-450); Red Cell Distribution Width 14 % (10-15)
[2018-12-20 04:53] LABS: Activated Partial Thrombo Time 28.3 seconds (26.0-38.0); INR 0.91 (0.82-1.09)
[2018-12-20 05:08] LABS: Albumin 3.9 g/dL (3.2-5.2); Albumin/Globulin Ratio 1.1 (1-3); BUN/Creatinine Ratio 22.8 (8-20); C Reactive Protein 40.4 mg/L (<8.01); Calcium 9.2 mg/dL (8.6-10.3); EGFR African American 22.3 (>60); EGFR Non-African American 18.4 (>60); Globulin 3.5 g/dL (2-4); Potassium 4.5 mmol/L (3.5-5.0); Total Bilirubin 0.3 mg/dL (0.2-1.0); Total Protein 7.4 g/dL (6.4-8.9)
[2018-12-20 05:10] LABS: Troponin I 0.01 ng/mL (<0.04)
--- OUTSIDE RECORDS SUMMARY | 2018-12-20 05:53 | XMS REPORT | Continuity of Care Document ---
:1945 External Reference #:[id number] Demographics Home Phone [phone] Mobile Phone [phone] Preferred Language en Marital Status Not or Cheondoism Affiliation Unknown Race White Ethnic Group Not or Author Name Omar Ellison M.D. Address [facility] [address] [place] [address] Care Team Providers Name Role Phone Zakia Zurita MD Care Team Information Sound Effects Technician Unavailable Zakia Zurita MD Primary Care Physician Unavailable Payers Date Identification Numbers Payment Provider Subscriber Policy Number: [id number] / [employer] Kat Montemayor PayID: [id number] [address] [address] [place] [address] Problems Active Problems Provider Date Type 2 diabetes mellitus Omar Ellison M.D. Onset: 12/08/2018 Family History Date Family Member(s) Observation Comments Father due to COPD () Mother due to COPD () Social History Type Date Description Comments Sex Unknown ETOH Use Denies alcohol use Tobacco Use Start: Unknown Patient has never smoked Smoking Status Reviewed: 12/08/18 Patient has never smoked Allergies, Adverse Reactions, Alerts Active Allergies Reaction Severity Comments Date Wellbutrin 12/08/2018 Vicodin 12/08/2018 Metformin 12/08/2018 Heparin 12/08/2018 Medications Active Medications SIG Qnty Indications Ordering Provider Date Amlodipine Besylate Unknown 10mg Tablets Aspir-Low 1 by mouth Unknown 81mg Tablets DR every day Atenolol Unknown 100mg Tablets Atorvastatin Calcium Unknown 20mg Tablets Fluticasone Propionate Unknown 50mcg/Act Suspension Lantus Unknown 100Unit/ML Solution Lasix 1 by mouth Unknown 20mg Tablets three times per week (m,w,f) Levothyroxine Sodium Unknown 137mcg Tablets Losartan Unknown Potassium/Hydrochlorothi azide 100-25mg Tablets Melatonin Unknown 3mg Capsules Omeprazole Unknown 20mg Capsules DR Nair Unknown 125mg [place] Sertraline HCL Unknown 50mg Tablets Vital Signs Date Vital Result Comment 12/08/2018 10:20am Intraocular Pressure Right Eye 20 mmHg Intraocular Pressure Left Eye 19 mmHg Procedures Date Code Description Status 12/08/2018 80056 Gonioscopy Completed 12/08/2018 34864 Eye Exam New Intermediate Completed 06/29/2011 35050 Fundus Photography W/Interpretation & Report Completed 06/29/2011 56791 Refraction Completed 06/29/2011 26580 Eye Exam Est Comprehensive Completed 03/28/2006 64106 Refraction Completed 03/28/2006 97542 Eye Exam New Intermediate Completed Plan of Treatment 12/08/2018 - Omar Ellison M.D.H40.033 Anatomical narrow angle, bilateralFollow up:few wks LI OD, then OS, then full
[2018-12-20 06:25] LABS: Urine Appearance Cloudy; Urine Bacteria 2+ (Absent); Urine Bilirubin Negative (Negative); Urine Blood 1+ (Negative); Urine Color Yellow; Urine Glucose 1+(50 mg/dL) (Negative); Urine Ketones Negative (Negative); Urine Nitrite Negative (Negative); Urine Protein 2+(100 mg/dL) (Negative); Urine Red Blood Cell Trace(0-2/hpf) (Absent); Urine Squamous Epithelial Cell Present (Absent); Urine Urobilinogen Negative (Negative); Urine White Blood Cell 2+(11-20/hpf) (Absent)
[2018-12-20] MEDS ORDERED: Al Hydrox/Mg Hydrox/Simet LIQ* 30 ML UDC PO PRN (08:13)
[2018-12-20] MEDS ORDERED: NS 0.9% 1000 ML** 1,000 ML IV SCH (08:15)
[2018-12-20] MEDS ORDERED: Melatonin 3 MG TAB PO PRN (08:22)
[2018-12-20] MEDS ORDERED: traMADol TAB* 50 MG PO PRN (08:22)
[2018-12-20] MEDS ORDERED: Polyethylene Glycol 3350* 17 GM PACKET PO PRN (08:22)
[2018-12-20] MEDS ORDERED: Simethicone TAB* 80 MG TAB.CHEW PO PRN (08:22)
[2018-12-20] MEDS ORDERED: Dextrose 50% Syringe 50 ML* 25 GM/50 ML SYRINGE IV PUSH PRN (08:27)
[2018-12-20] MEDS ORDERED: Docusate LIQ* 100 MG/10 ML UDC PO PRN (09:56)
[2018-12-20] MEDS: amLODIPine TAB* 5 MG PO SCH (10:33)
[2018-12-20] MEDS: Docusate CAP* 100 MG PO SCH ×2 (10:33→20:14)
[2018-12-20] MEDS: Venlafaxine EXT RELEASE CAP* 75 MG PO SCH (10:33)
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
[2018-12-20] MEDS: Pantoprazole TAB * 40 MG TAB PO SCH (10:34)
[2018-12-20] MEDS: Aspirin EC TAB* 81 MG TAB.EC PO SCH (10:34)
[2018-12-20] MEDS: Atorvastatin* 20 MG TAB PO SCH (10:34)
[2018-12-20] MEDS: Lactobacillus Acidophilus* 1 TAB PO SCH ×2 (10:34→20:14)
[2018-12-20] MEDS: Sertraline* 50 MG TAB PO SCH (10:34)
[2018-12-20] MEDS: Senna TAB 8.6 mg* TAB PO SCH ×2 (10:35→20:14)
[2018-12-20] MEDS: Atenolol TAB* 50 MG PO SCH (10:35)
[2018-12-20] MEDS: Acetaminophen TAB* 325 MG PO PRN (10:36)
[2018-12-20] MEDS: Loperamide CAP* 2 MG PO SCH (10:38)
[2018-12-20] MEDS ORDERED: Insulin LISPRO* 1 UNITS UNIT SUBCUT SCH (11:30)
[2018-12-20] MEDS: Insulin GLARGINE(*) 1 UNITS UNIT SUBCUT SCH (13:42)
[2018-12-20] MEDS ORDERED: Heparin VIAL(*) 5000 UNITS/ML VIAL (FIVE THOUSAND) SUBCUT SCH (14:00)
[2018-12-20] MEDS: Fluticasone NASAL SPRAY 50MCG* 16 gm SPRAY BTL BOTH NARES SCH (15:49)
[2018-12-20] MEDS: cefTRIAXone(*) 1 GM in NS 0.9% 50 ML* 50 ML IVPB SCH (15:49)
[2018-12-20] MEDS: Heparin VIAL(*) 5000 UNITS/ML VIAL (FIVE THOUSAND) SUBCUT SCH ×2 (15:49→15:52)
[2018-12-20] MEDS: Enoxaparin(*) 30 MG/0.3 ML SYR SUBCUT SCH (17:22)
[2018-12-21] MEDS ORDERED: Saline NASAL SPRAY 0.65%* BTL BOTH NARES PRN (00:05)
[2018-12-21] MEDS: Acetaminophen TAB* 325 MG PO PRN ×2 (02:52→19:18)
[2018-12-21] MEDS: Levothyroxine TAB* 137 MCG TAB PO SCH (04:59)
[2018-12-21 06:17] LABS: ABS Eosinophils 0.1 10^3/ul (0-0.6); ABS Lymphocytes 0.3 10^3/ul (1.0-4.8); ABS Monocytes 0.3 10^3/ul (0-0.8); Eosinophil % 1.3 %; Hematocrit 25 % (35-47); Hemoglobin 8.1 g/dL (12.0-16.0); Mean Corpuscular HGB Conc 33 g/dL (31-36); Mean Corpuscular Hemoglobin 27 pg (27-31); Mean Corpuscular Volume 83 fL (80-97); Platelet Count 260 10^3/uL (150-450); Red Blood Count 2.96 10^6 /uL (3.70-4.87); Red Cell Distribution Width 15 % (10-15); White Blood Count 9.8 10^3/uL (3.5-10.8)
[2018-12-21 06:35] LABS: Calcium 8.2 mg/dL (8.6-10.3); Potassium 4.1 mmol/L (3.5-5.0)
[2018-12-21 06:40] LABS: BUN/Creatinine Ratio 18.2 (8-20); EGFR African American 21.9 (>60); EGFR Non-African American 18.1 (>60)
[2018-12-21] MEDS: Insulin LISPRO* 1 UNITS UNIT SUBCUT SCH ×4 (09:50→21:43)
[2018-12-21] MEDS: Insulin GLARGINE(*) 1 UNITS UNIT SUBCUT SCH (09:51)
[2018-12-21] MEDS: Atenolol TAB* 50 MG PO SCH (09:53)
[2018-12-21] MEDS: amLODIPine TAB* 5 MG PO SCH (09:54)
[2018-12-21] MEDS: Senna TAB 8.6 mg* TAB PO SCH ×2 (09:54→21:43)
[2018-12-21] MEDS: Venlafaxine EXT RELEASE CAP* 75 MG PO SCH (09:54)
[2018-12-21] MEDS: Atorvastatin* 20 MG TAB PO SCH (09:54)
[2018-12-21] MEDS: Sertraline* 50 MG TAB PO SCH (09:54)
[2018-12-21] MEDS: Lactobacillus Acidophilus* 1 TAB PO SCH ×2 (09:54→21:43)
[2018-12-21] MEDS: Aspirin EC TAB* 81 MG TAB.EC PO SCH (09:55)
[2018-12-21] MEDS: Pantoprazole TAB * 40 MG TAB PO SCH (09:55)
[2018-12-21] MEDS: Docusate CAP* 100 MG PO SCH ×2 (09:55→21:45)
[2018-12-21] MEDS: Loperamide CAP* 2 MG PO SCH (09:55)
[2018-12-21] MEDS: Fluticasone NASAL SPRAY 50MCG* 16 gm SPRAY BTL BOTH NARES SCH (10:03)
[2018-12-21] MEDS: cefTRIAXone(*) 1 GM in NS 0.9% 50 ML* 50 ML IVPB SCH (12:57)
[2018-12-21] MEDS: Enoxaparin(*) 30 MG/0.3 ML SYR SUBCUT SCH (15:41)
--- NOTE | 2018-12-21 17:24 | PN ---
Subjective Date of Service: 12/21/18 Interval History: Patient seen and examined. Feeling well. Complains only of constipation today. States urinary frequency and burning has resolved and is improved. States "I'm feeling like myself again". Denies fever or chills, no SOB, no chest pain, no abdominal pain. Objective Active Medications: Acetaminophen (Tylenol Tab*) 650 mg PO Q4H PRN PRN Reason: Fever>100.9/Pain-mild Last Admin: 12/21/18 02:52 Dose: 650 mg Al Hydrox/Mg Hydrox/Simethicone (Maalox Plus*) 30 ml PO Q6H PRN PRN Reason: INDIGESTION Amlodipine Besylate (Norvasc Tab*) 10 mg PO DAILY [facility] Last Admin: 12/21/18 09:54 Dose: 10 mg Aspirin (Aspirin Ec Tab*) 81 mg PO DAILY [facility] Last Admin: 12/21/18 09:55 Dose: 81 mg Atenolol (Tenormin Tab*) 100 mg PO DAILY [facility] Last Admin: 12/21/18 09:53 Dose: 100 mg Atorvastatin Calcium (Lipitor*) 20 mg PO DAILY [facility] Last Admin: 12/21/18 09:54 Dose: 20 mg Dextrose (D50w Syringe 50 Ml*) 12.5 gm IV PUSH .FOR FS < 60 - SS PRN PRN Reason: FS < 60 Docusate Sodium (Colace Cap*) 100 mg PO BID [facility] Last Admin: 12/21/18 09:55 Dose: 100 mg Enoxaparin Sodium (Lovenox(*)) 30 mg SUBCUT Q24H [facility] Last Admin: 12/21/18 15:41 Dose: 30 mg Fluticasone Propionate (Flonase Nasal Anton 50mcg*) 2 spray BOTH NARES DAILY [facility] Last Admin: 12/21/18 10:03 Dose: 2 spray Ceftriaxone Sodium 1 gm/ (Sodium Chloride) 50 mls @ 100 mls/hr IVPB Q24H [facility] Last Admin: 12/21/18 12:57 Dose: 100 mls/hr Insulin Glargine (Lantus(*)) 10 units SUBCUT Q24H [facility] Last Admin: 12/21/18 09:51 Dose: 10 units Insulin Human Lispro (Humalog*) 0 units SUBCUT [facility]; Protocol Last Admin: 12/21/18 16:55 Dose: Not Given Lactobacillus Rhamnosus (Lactobacillus Acidophilus*) 1 tab PO BID [facility] Last Admin: 12/21/18 09:54 Dose: 1 tab Levothyroxine Sodium (Synthroid Tab*) 137 mcg PO 0600 [facility] Last Admin: 12/21/18 04:59 Dose: 137 mcg Loperamide HCl (Imodium Cap*) 2 mg PO DAILY WITH MEAL [facility] Last Admin: 12/21/18 09:55 Dose: Not Given Melatonin (Melatonin) 3 mg PO BEDTIME PRN PRN Reason: Sleep Miscellaneous (Ativan Pyxis Hartmann) 1 ea N/A .ATIVAN IV HARTMANN PRN PRN Reason: PYXIS HARTMANN Pantoprazole Sodium (Protonix Tab*) 40 mg PO DAILY [facility] Last Admin: 12/21/18 09:55 Dose: 40 mg Polyethylene Glycol/Electrolytes (Miralax*) 17 gm PO Q48H PRN PRN Reason: CONSTIPATION Senna (Senokot Tab*) 1 tab PO BID [facility] Last Admin: 12/21/18 09:54 Dose: 1 tab Senna (Senokot Tab*) 1 tab PO DAILY PRN PRN Reason: CONSTIPATION Sertraline HCl (Zoloft*) 50 mg PO DAILY [facility] Last Admin: 12/21/18 09:54 Dose: 50 mg Simethicone (Mylicon Tab*) 120 mg PO AC PRN PRN Reason: INDIGESTION Sodium Chloride (Sodium Chloride 0.65% Nasal Anton*) 2 spray BOTH NARES Q4H PRN PRN Reason: CONGESTION Tramadol HCl (Ultram*) 50 mg PO Q12H PRN PRN Reason: PAIN Venlafaxine HCl (Effexor Xr Cap*) 150 mg PO DAILY [facility] Last Admin: 12/21/18 09:54 Dose: 150 mg Vital Signs - 8 hr 12/21/18 15:15 Temperature 97.3 F Pulse Rate 84 Respiratory 17 Rate Blood Pressure 128/68 (mmHg) O2 Sat by Pulse 98 Oximetry Oxygen Devices in Use Now: None Appearance: alert, NAD Eyes: No Scleral Icterus, PERRLA Ears/Nose/Mouth/Throat: NL Teeth, Lips, Gums, Mucous Membranes Moist Neck: NL Appearance and Movements; NL JVP, Trachea Midline Respiratory: Symmetrical Chest Expansion and Respiratory Effort, Clear to Auscultation Cardiovascular: NL Sounds; No Murmurs; No JVD, RRR, No Edema Abdominal: NL Sounds; No Tenderness; No Distention Extremities: No Edema, No Clubbing, Cyanosis Skin: No Rash or Ulcers Neurological: Alert and Oriented x 3, NL Sensation, NL Gait Nutrition: Taking PO's Result Diagrams: 12/21/18 06:07 12/21/18 06:07 Microbiology and Other Data: Microbiology 12/20/18 06:05 Urine Culture - Final Urine 12/20/18 04:28 Aerobic Blood Culture - Preliminary Blood Venous No Growth Day 1 Anaerobic Blood Culture - Preliminary No Growth Day 1 12/20/18 04:28 Aerobic Blood Culture - Preliminary Blood Venous No Growth Day 1 Anaerobic Blood Culture - Preliminary No Growth Day 1 Diagnostic Imaging: Patient Name: NEREIDA HOANG Medical Record#: [id number] Ordering Physician: Davonte Whitaker MD Acct.#: [id number] : 1945 Age: 73 Sex: F Location: EMERGENCY DEPARTMENT Exam Date: 12/20/18405 ADM Status: REG ER Order Information: CT ABD/PEL W/O Accession Number: [id number] CPT: 54670 EXAM: CT Abdomen and Pelvis Without Contrast EXAM DATE/TIME: 12/20/2018 4:51 AM CLINICAL HISTORY: 73 years old, female; Abdominal pain; Generalized; Prior surgery; Surgery date: 6+ months; Surgery type: Evon/appy/intestines? ; Patient HX: RT breast ca/renal failure/c-diff; Additional info: Abd pain TECHNIQUE: Imaging protocol: Axial computed tomography images of the abdomen and pelvis without contrast. Coronal and sagittal reformatted images were created and reviewed. Radiation optimization: All CT scans at this facility use at least one of these dose optimization techniques: automated exposure control; mA and/or kV adjustment per patient size (includes targeted exams where dose is matched to clinical indication); or iterative reconstruction. COMPARISON: CT ABD/PEL W/O 03/17/2018 9:[address] ABD/PEL W 01/20/2016 3:46:00 AM FINDINGS: Lungs: There is bibasilar atelectasis. Heart: No cardiomegaly. No pericardial effusion. Liver: Unremarkable. No liver lesion is seen. The contour of the liver is smooth. No hepatomegaly is noted. Gallbladder and bile ducts: There has been a cholecystectomy. There is no fluid collection in the gallbladder fossa. No dilation of the bile ducts is noted. Pancreas: Atrophic. No ductal dilation. There is a 9 mm cystic lesion in the uncinate process of the pancreas, which is stable compared to the prior CT scans on 03/17/2018 and 01/20/2016. Spleen: Unremarkable. No splenomegaly. Incidental note is made of a small accessory spleen. Adrenals: Normal. No mass. Kidneys and ureters: The kidneys are unremarkable. No renal lesion is identified. No calculi are seen in the kidneys or ureters. There is no hydronephrosis or hydroureter. There is nonspecific bilateral perinephric stranding, which is similar in appearance compared to the prior CT scan on 03/17/2018. Stomach and bowel: There is duodenal and mild sigmoid diverticulosis without evidence for diverticulitis. There is no evidence for a bowel obstruction, colitis, pneumatosis intestinalis, intussusception, volvulus, or perforated viscus. There is a mild to moderate amount of formed stool in the colon. Appendix: The appendix has been removed. Intraperitoneal space: Unremarkable. No free air. No fluid collection. Vasculature: No abdominal aortic aneurysm. There are moderate atherosclerotic calcifications. [facility] Patient Name:NEREIDA HOANG MR: [id number] : 1945 Lymph nodes: Normal. No enlarged lymph nodes. Bladder: There is a small amount of gas in the urinary bladder, which should be correlated with recent instrumentation. No calculi or masses are noted in the bladder. There is no bladder wall thickening. Reproductive: The uterus is anterverted and unremarkable. The ovaries are unremarkable. Bones/joints: The imaged bony structures are intact. There is no suspicious osteolytic or osteoblastic lesion. There are degenerative changes in the lumbar spine and a levoscoliosis of the lumbar spine. The bones have a demineralized appearance. Soft tissues: There is a tiny fat-containing periumbilical hernia, which is similar in appearance compared to the prior CT scans on 03/17/2018 and 01/20/2016. IMPRESSION: 1. No acute findings in the abdomen or pelvis. 2. Duodenal and sigmoid diverticulosis without evidence for diverticulitis. 3. Tiny fat-containing periumbilical hernia, which is similar in appearance compared to the prior CT scans on 03/17/2018 and 01/20/2016. 4. 9 mm cystic lesion in the uncinate process of the pancreas, which is stable compared to the prior CT scans on 03/17/2018 and 01/20/2016. 5. Small amount of gas in the urinary bladder, which should be correlated with recent instrumentation. Assess/Plan/Problems-Billing Assessment: This is a 73 year old female with history of CKD, HTN and IDDM that presented with AMS and sepsis 2/2 UTI. - Patient Problems (1) Sepsis Comment: - With altered mentation, tachycardia, fever 102.2 and urinary source - s/p IVF bolus per protocol - Zosyn x1dose in ED, ceftriaxone Q24 currently - LA 1.9 and 1.4 - Blood culture NTD - Resolved (2) UTI (urinary tract infection) Comment: - Weak enterobacter positive urine likely 2/2 outpatient antibiotics - Emprically treated with zosyn in the ED to cover for sepsis, now on ceftriaxone, has had ecoli previously - Continue ceftriaxone IV (3) LANE (acute kidney injury) Code(s): N17.9 - ACUTE KIDNEY FAILURE, UNSPECIFIED SNOMED Code(s): 61993015 Comment: - LANE on CKD in presence of UTI - Continue to monitor labs (4) Constipation Current Visit: No Code(s): K59.00 - CONSTIPATION, UNSPECIFIED SNOMED Code(s) : 41799143 Comment: - Chronic problem - Continue bowel regimen (5) Diabetes Code(s): E11.9 - TYPE 2 DIABETES MELLITUS WITHOUT COMPLICATIONS SNOMED Code(s) : 27669265 Comment: - Well controlled on lantus 10units with lispro SS (6) HTN (hypertension) Code(s): I10 - ESSENTIAL (PRIMARY) HYPERTENSION SNOMED Code(s): 68163542 Comment: - BP was elevated at admission, patient was likely off her meds 2/2 encphalopathy - Currently stable on home medication regimen of amlodipine and atenolol - Holding Hyzaar 2/2 increased renal dysfunction (7) Hypothyroidism Code(s): E03.9 - HYPOTHYROIDISM, UNSPECIFIED SNOMED Code(s): 92566523 Comment: - Continue synthroid 137mcg daily (8) DVT prophylaxis Code(s): FMU9283 - SNOMED Code(s): 643923305 Comment: - Lovenox SQ (9) Full code status Code(s): Z78.9 - OTHER SPECIFIED HEALTH STATUS SNOMED Code(s): 207638142 Status and Disposition: Inpatient for IV atbx.
[2018-12-22] MEDS: Levothyroxine TAB* 137 MCG TAB PO SCH (05:12)
[2018-12-22] MEDS: Loperamide CAP* 2 MG PO SCH (09:20)
[2018-12-22] MEDS: Venlafaxine EXT RELEASE CAP* 75 MG PO SCH (09:21)
[2018-12-22] MEDS: Atenolol TAB* 50 MG PO SCH (09:21)
[2018-12-22] MEDS: Pantoprazole TAB * 40 MG TAB PO SCH (09:21)
[2018-12-22] MEDS: amLODIPine TAB* 5 MG PO SCH (09:22)
[2018-12-22] MEDS: Sertraline* 50 MG TAB PO SCH (09:22)
[2018-12-22] MEDS: Atorvastatin* 20 MG TAB PO SCH (09:22)
[2018-12-22] MEDS: Aspirin EC TAB* 81 MG TAB.EC PO SCH (09:22)
[2018-12-22] MEDS: Lactobacillus Acidophilus* 1 TAB PO SCH ×2 (09:22→21:25)
[2018-12-22] MEDS: Senna TAB 8.6 mg* TAB PO SCH ×2 (09:50→21:24)
[2018-12-22] MEDS: Docusate CAP* 100 MG PO SCH ×2 (09:50→21:24)
[2018-12-22] MEDS: Insulin GLARGINE(*) 1 UNITS UNIT SUBCUT SCH (09:52)
[2018-12-22] MEDS: Insulin LISPRO* 1 UNITS UNIT SUBCUT SCH ×4 (09:52→21:26)
[2018-12-22] MEDS: Fluticasone NASAL SPRAY 50MCG* 16 gm SPRAY BTL BOTH NARES SCH (10:00)
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
[2018-12-22] MEDS: cefTRIAXone(*) 1 GM in NS 0.9% 50 ML* 50 ML IVPB SCH (12:31)
[2018-12-22] MEDS: Senna TAB 8.6 mg* TAB PO PRN (12:43)
[2018-12-22] MEDS: Enoxaparin(*) 30 MG/0.3 ML SYR SUBCUT SCH (16:11)
--- NOTE | 2018-12-22 18:49 | PN ---
Subjective Date of Service: 12/22/18 Interval History: Patient seen and examined. Per SW, patient making suicidal statements this morning during her interview. Requested psychiatry consultation and placed on 1: 1 observation. Patient states she feels "terrible" to be this morning, but cannot articulate what that means. No fevers, no abdominal, no further complaints. Objective Active Medications: Acetaminophen (Tylenol Tab*) 650 mg PO Q4H PRN PRN Reason: Fever>100.9/Pain-mild Last Admin: 12/21/18 19:18 Dose: 650 mg Al Hydrox/Mg Hydrox/Simethicone (Maalox Plus*) 30 ml PO Q6H PRN PRN Reason: INDIGESTION Last Admin: 12/22/18 01:41 Dose: 30 ml Amlodipine Besylate (Norvasc Tab*) 10 mg PO DAILY [facility] Last Admin: 12/22/18 09:22 Dose: 10 mg Aspirin (Aspirin Ec Tab*) 81 mg PO DAILY [facility] Last Admin: 12/22/18 09:22 Dose: 81 mg Atenolol (Tenormin Tab*) 100 mg PO DAILY [facility] Last Admin: 12/22/18 09:21 Dose: 100 mg Atorvastatin Calcium (Lipitor*) 20 mg PO DAILY [facility] Last Admin: 12/22/18 09:22 Dose: 20 mg Dextrose (D50w Syringe 50 Ml*) 12.5 gm IV PUSH .FOR FS < 60 - SS PRN PRN Reason: FS < 60 Docusate Sodium (Colace Cap*) 100 mg PO BID [facility] Last Admin: 12/22/18 09:50 Dose: 100 mg Enoxaparin Sodium (Lovenox(*)) 30 mg SUBCUT Q24H [facility] Last Admin: 12/22/18 16:11 Dose: 30 mg Fluticasone Propionate (Flonase Nasal [place] 50mcg*) 2 spray BOTH NARES DAILY [facility] Last Admin: 12/22/18 10:00 Dose: 2 spray Ceftriaxone Sodium 1 gm/ (Sodium Chloride) 50 mls @ 100 mls/hr IVPB Q24H [facility] Last Admin: 12/22/18 12:31 Dose: 100 mls/hr Insulin Glargine (Lantus(*)) 10 units SUBCUT Q24H [facility] Last Admin: 12/22/18 09:52 Dose: 10 units Insulin Human Lispro (Humalog*) 0 units SUBCUT ACHS [facility]; Protocol Last Admin: 12/22/18 17:51 Dose: 6 units Lactobacillus Rhamnosus (Lactobacillus Acidophilus*) 1 tab PO BID [facility] Last Admin: 12/22/18 09:22 Dose: 1 tab Levothyroxine Sodium (Synthroid Tab*) 137 mcg PO 0600 [facility] Last Admin: 12/22/18 05:12 Dose: 137 mcg Melatonin (Melatonin) 6 mg PO BEDTIME [facility] Miscellaneous (Ativan Pyxis Hartmann) 1 ea N/A .ATIVAN IV HARTMANN PRN PRN Reason: PYXIS HARTMANN Pantoprazole Sodium (Protonix Tab*) 40 mg PO DAILY [facility] Last Admin: 12/22/18 09:21 Dose: 40 mg Polyethylene Glycol/Electrolytes (Miralax*) 17 gm PO Q48H PRN PRN Reason: CONSTIPATION Senna (Senokot Tab*) 1 tab PO BID [facility] Last Admin: 12/22/18 09:50 Dose: 1 tab Senna (Senokot Tab*) 1 tab PO DAILY PRN PRN Reason: CONSTIPATION Last Admin: 12/22/18 12:43 Dose: 1 tab Sertraline HCl (Zoloft*) 50 mg PO DAILY [facility] Last Admin: 12/22/18 09:22 Dose: 50 mg Simethicone (Mylicon Tab*) 120 mg PO AC PRN PRN Reason: INDIGESTION Last Admin: 12/22/18 03:45 Dose: 120 mg Sodium Chloride (Sodium Chloride 0.65% Nasal [place]*) 2 spray BOTH NARES Q4H PRN PRN Reason: CONGESTION Last Admin: 12/22/18 01:34 Dose: 2 spray Tramadol HCl (Ultram*) 50 mg PO Q12H PRN PRN Reason: PAIN Venlafaxine HCl (Effexor Xr Cap*) 187.5 mg PO DAILY [facility] Oxygen Devices in Use Now: Nasal Cannula Appearance: alert, mild distress Eyes: No Scleral Icterus, PERRLA Neck: NL Appearance and Movements; NL JVP, Trachea Midline Respiratory: Symmetrical Chest Expansion and Respiratory Effort, Clear to Auscultation Cardiovascular: NL Sounds; No Murmurs; No JVD, RRR, No Edema Abdominal: NL Sounds; No Tenderness; No Distention Skin: No Rash or Ulcers Neurological: Alert and Oriented x 3 Nutrition: Taking PO's Result Diagrams: 12/21/18 06:07 12/21/18 06:07 Microbiology and Other Data: Microbiology 12/20/18 06:05 Urine Culture - Final Urine 12/20/18 04:28 Aerobic Blood Culture - Preliminary Blood Venous No Growth Day 1 Anaerobic Blood Culture - Preliminary No Growth Day 1 12/20/18 04:28 Aerobic Blood Culture - Preliminary Blood Venous No Growth Day 1 Anaerobic Blood Culture - Preliminary No Growth Day 1 Diagnostic Imaging: Patient Name: NEREIDA HOANG Medical Record#: [id number] Ordering Physician: Davonte Whitaker MD Acct.#: [id number] : 1945 Age: 73 Sex: F Location: EMERGENCY DEPARTMENT Exam Date: 12/20/18405 ADM Status: REG ER Order Information: CT ABD/PEL W/O Accession Number: [id number] CPT: 08215 EXAM: CT Abdomen and Pelvis Without Contrast EXAM DATE/TIME: 12/20/2018 4:51 AM CLINICAL HISTORY: 73 years old, female; Abdominal pain; Generalized; Prior surgery; Surgery date: 6+ months; Surgery type: Evon/appy/intestines? ; Patient HX: RT breast ca/renal failure/c-diff; Additional info: Abd pain TECHNIQUE: Imaging protocol: Axial computed tomography images of the abdomen and pelvis without contrast. Coronal and sagittal reformatted images were created and reviewed. Radiation optimization: All CT scans at this facility use at least one of these dose optimization techniques: automated exposure control; mA and/or kV adjustment per patient size (includes targeted exams where dose is matched to clinical indication); or iterative reconstruction. COMPARISON: CT ABD/PEL W/O 03/17/2018 9:[address] ABD/PEL W 01/20/2016 3:46:00 AM FINDINGS: Lungs: There is bibasilar atelectasis. Heart: No cardiomegaly. No pericardial effusion. Liver: Unremarkable. No liver lesion is seen. The contour of the liver is smooth. No hepatomegaly is noted. Gallbladder and bile ducts: There has been a cholecystectomy. There is no fluid collection in the gallbladder fossa. No dilation of the bile ducts is noted. Pancreas: Atrophic. No ductal dilation. There is a 9 mm cystic lesion in the uncinate process of the pancreas, which is stable compared to the prior CT scans on 03/17/2018 and 01/20/2016. Spleen: Unremarkable. No splenomegaly. Incidental note is made of a small accessory spleen. Adrenals: Normal. No mass. Kidneys and ureters: The kidneys are unremarkable. No renal lesion is identified. No calculi are seen in the kidneys or ureters. There is no hydronephrosis or hydroureter. There is nonspecific bilateral perinephric stranding, which is similar in appearance compared to the prior CT scan on 03/17/2018. Stomach and bowel: There is duodenal and mild sigmoid diverticulosis without evidence for diverticulitis. There is no evidence for a bowel obstruction, colitis, pneumatosis intestinalis, intussusception, volvulus, or perforated viscus. There is a mild to moderate amount of formed stool in the colon. Appendix: The appendix has been removed. Intraperitoneal space: Unremarkable. No free air. No fluid collection. Vasculature: No abdominal aortic aneurysm. There are moderate atherosclerotic calcifications. [facility] Patient Name:NEREIDA HOANG MR: [id number] : 1945 Lymph nodes: Normal. No enlarged lymph nodes. Bladder: There is a small amount of gas in the urinary bladder, which should be correlated with recent instrumentation. No calculi or masses are noted in the bladder. There is no bladder wall thickening. Reproductive: The uterus is anterverted and unremarkable. The ovaries are unremarkable. Bones/joints: The imaged bony structures are intact. There is no suspicious osteolytic or osteoblastic lesion. There are degenerative changes in the lumbar spine and a levoscoliosis of the lumbar spine. The bones have a demineralized appearance. Soft tissues: There is a tiny fat-containing periumbilical hernia, which is similar in appearance compared to the prior CT scans on 03/17/2018 and 01/20/2016. IMPRESSION: 1. No acute findings in the abdomen or pelvis. 2. Duodenal and sigmoid diverticulosis without evidence for diverticulitis. 3. Tiny fat-containing periumbilical hernia, which is similar in appearance compared to the prior CT scans on 03/17/2018 and 01/20/2016. 4. 9 mm cystic lesion in the uncinate process of the pancreas, which is stable compared to the prior CT scans on 03/17/2018 and 01/20/2016. 5. Small amount of gas in the urinary bladder, which should be correlated with recent instrumentation. Assess/Plan/Problems-Billing Assessment: This is a 73 year old female with history of CKD, HTN and IDDM that presented with AMS and sepsis 2/2 UTI. - Patient Problems (1) Sepsis Comment: - With altered mentation, tachycardia, fever 102.2 and urinary source - s/p IVF bolus per protocol - Zosyn x1dose in ED, ceftriaxone Q24 currently - LA 1.9 and 1.4 - Blood culture NTD - Resolved (2) UTI (urinary tract infection) Comment: - Weak enterobacter positive urine likely 2/2 outpatient antibiotics - Emprically treated with zosyn in the ED to cover for sepsis, now on ceftriaxone, has had ecoli previously - Continue ceftriaxone IV, change to cefuroxime for discharge when ready (3) Suicidal ideation Code(s): R45.851 - SUICIDAL IDEATIONS SNOMED Code(s): 2763112 Comment: - Initially made statements in the ED and again this morning to social psychologist - Psychiatry consulted - 1:1 observation ordered - Per psychiatry note, patient is not currently suicidal and does not require inpatient BSU - Requested RN and staff to contract for safety before 1:1 is discontinued (4) LANE (acute kidney injury) Code(s): N17.9 - ACUTE KIDNEY FAILURE, UNSPECIFIED SNOMED Code(s): 58032977 Comment: - LANE on CKD in presence of UTI - Continue to monitor labs (5) Constipation Current Visit: No Code(s): K59.00 - CONSTIPATION, UNSPECIFIED SNOMED Code(s) : 21632449 Comment: - Chronic problem - Continue bowel regimen (6) Diabetes Code(s): E11.9 - TYPE 2 DIABETES MELLITUS WITHOUT COMPLICATIONS SNOMED Code(s) : 45155448 Comment: - Well controlled on lantus 10units with lispro SS (7) HTN (hypertension) Code(s): I10 - ESSENTIAL (PRIMARY) HYPERTENSION SNOMED Code(s): 71421622 Comment: - BP was elevated at admission, patient was likely off her meds 2/2 encphalopathy - Currently stable on home medication regimen of amlodipine and atenolol - Holding Hyzaar 2/2 increased renal dysfunction (8) Hypothyroidism Code(s): E03.9 - HYPOTHYROIDISM, UNSPECIFIED SNOMED Code(s): 49994573 Comment: - Continue synthroid 137mcg daily (9) DVT prophylaxis Code(s): IWY8060 - SNOMED Code(s): 415939431 Comment: - Lovenox SQ (10) Full code status Code(s): Z78.9 - OTHER SPECIFIED HEALTH STATUS SNOMED Code(s): 050898569 Status and Disposition: Inpatient for IV atbx. Discharge to [facility] when bed obtained.
[2018-12-22] MEDS: LORazepam TAB(*) 0.5 MG PO PRN (19:34)
[2018-12-22] MEDS: Melatonin 3 MG TAB PO SCH (21:24)
[2018-12-23] MEDS: Levothyroxine TAB* 137 MCG TAB PO SCH (05:30)
[2018-12-23] MEDS: Insulin LISPRO* 1 UNITS UNIT SUBCUT SCH ×4 (08:03→20:10)
[2018-12-23] MEDS: Pantoprazole TAB * 40 MG TAB PO SCH (10:25)
[2018-12-23] MEDS: Acetaminophen TAB* 325 MG PO PRN ×3 (10:25→23:48)
[2018-12-23] MEDS: amLODIPine TAB* 5 MG PO SCH (10:26)
[2018-12-23] MEDS: Senna TAB 8.6 mg* TAB PO SCH ×2 (10:26→20:10)
[2018-12-23] MEDS: Atorvastatin* 20 MG TAB PO SCH (10:26)
[2018-12-23] MEDS: Venlafaxine EXT RELEASE CAP* 37.5 MG PO SCH (10:26)
[2018-12-23] MEDS: Sertraline* 50 MG TAB PO SCH (10:26)
[2018-12-23] MEDS: Lactobacillus Acidophilus* 1 TAB PO SCH ×2 (10:26→20:10)
[2018-12-23] MEDS: Atenolol TAB* 50 MG PO SCH (10:26)
[2018-12-23] MEDS: Docusate CAP* 100 MG PO SCH ×2 (10:26→20:10)
[2018-12-23] MEDS: LORazepam TAB(*) 0.5 MG PO PRN ×3 (10:26→23:49)
[2018-12-23] MEDS: Aspirin EC TAB* 81 MG TAB.EC PO SCH (10:27)
[2018-12-23] MEDS: Fluticasone NASAL SPRAY 50MCG* 16 gm SPRAY BTL BOTH NARES SCH (10:38)
[2018-12-23] MEDS: Insulin GLARGINE(*) 1 UNITS UNIT SUBCUT SCH (10:52)
[2018-12-23] MEDS: cefTRIAXone(*) 1 GM in NS 0.9% 50 ML* 50 ML IVPB SCH (13:09)
--- NOTE | 2018-12-23 15:53 | PN ---
Subjective Date of Service: 12/23/18 Interval History: Ms. Montemayor is feeling a bit better today. She is less fatigued. Has not been up ambulating. Denies CP, SOB, N/V. Does not want to go to rehab and would prefer to go back to living in the hotel room she was living in previous. No concerns from nursing. Family History: Unchanged from Admission Social History: Unchanged from Admission Past Medical History: Unchanged from Admission Objective Active Medications: Acetaminophen (Tylenol Tab*) 650 mg PO Q4H PRN Fever>100.9/Pain-mild Al Hydrox/Mg Hydrox/Simethicone (Maalox Plus*) 30 ml PO Q6H PRN INDIGESTION Amlodipine Besylate (Norvasc Tab*) 10 mg PO DAILY [facility] Aspirin (Aspirin Ec Tab*) 81 mg PO DAILY [facility] Atenolol (Tenormin Tab*) 100 mg PO DAILY [facility] Atorvastatin Calcium (Lipitor*) 20 mg PO DAILY [facility] Dextrose (D50w Syringe 50 Ml*) 12.5 gm IV PUSH .FOR FS < 60 - SS PRN FS < 60 Docusate Sodium (Colace Cap*) 100 mg PO BID [facility] Enoxaparin Sodium (Lovenox(*)) 30 mg SUBCUT Q24H [facility] Fluticasone Propionate (Flonase Nasal [place] 50mcg*) 2 spray BOTH NARES DAILY [facility] Ceftriaxone Sodium 1 gm/ (Sodium Chloride) 50 mls @ 100 mls/hr IVPB Q24H [facility] Insulin Glargine (Lantus(*)) 10 units SUBCUT Q24H [facility] Insulin Human Lispro (Humalog*) 0 units SUBCUT ACHS [facility]; Protocol Lactobacillus Rhamnosus (Lactobacillus Acidophilus*) 1 tab PO BID [facility] Levothyroxine Sodium (Synthroid Tab*) 137 mcg PO 0600 [facility] Lorazepam (Ativan Tab(*)) 0.5 mg PO Q8H PRN ANXIETY Melatonin (Melatonin) 6 mg PO BEDTIME [facility] Pantoprazole Sodium (Protonix Tab*) 40 mg PO DAILY [facility] Polyethylene Glycol/Electrolytes (Miralax*) 17 gm PO Q48H PRN CONSTIPATION Senna (Senokot Tab*) 1 tab PO BID [facility] Senna (Senokot Tab*) 1 tab PO DAILY [facility] CONSTIP[facility] Sertraline HCl (Zoloft*) 50 mg PO DAILY [facility] Simethicone (Mylicon Tab*) 120 mg PO AC PRN INDIGESTION Sodium Chloride (Sodium Chloride 0.65% Nasal [place]*) 2 spray BOTH NARES Q4H PRN CONGESTION Tramadol HCl (Ultram*) 50 mg PO Q12H PRN PAIN Venlafaxine HCl (Effexor Xr Cap*) 187.5 mg PO DAILY [facility] Vital Signs - 8 hr 12/23/18 12/23/18 12/23/18 08:00 10:26 11:16 Temperature 97.9 F Pulse Rate 92 Respiratory 18 19 19 Rate Blood Pressure 134/52 (mmHg) O2 Sat by Pulse 97 Oximetry Oxygen Devices in Use Now: Nasal Cannula Appearance: Elderly female laying in bed in NAD Eyes: No Scleral Icterus Ears/Nose/Mouth/Throat: Mucous Membranes Moist Neck: NL Appearance and Movements; NL JVP, Trachea Midline Respiratory: Symmetrical Chest Expansion and Respiratory Effort, Clear to Auscultation Cardiovascular: NL Sounds; No Murmurs; No JVD, RRR Abdominal: - - Normoactive BS, soft but tender throughout Neurological: Alert and Oriented x 3 Lines/Tubes/Other Access: Clean, Dry and Intact Peripheral IV Nutrition: Taking PO's Result Diagrams: 12/21/18 06:07 12/21/18 06:07 Assess/Plan/Problems-Billing Assessment: Ms. Montemayor is a 73 yo F with PMH of CKD, HTN and IDDM that presented with AMS and sepsis 2/2 UTI. - Patient Problems (1) UTI (urinary tract infection) Comment: - Weak enterobacter positive urine likely 2/2 outpatient antibiotics - Emprically treated with zosyn in the ED to cover for sepsis - Continue ceftriaxone IV; change to cefuroxime at discharge (2) Sepsis Comment: - Resolved - With altered mentation, tachycardia, fever 102.2 on admission; urinary source - Lactic acid normal; blood culture NTD (3) Suicidal ideation Code(s): R45.851 - SUICIDAL IDEATIONS Comment: - Initially made statements in the ED and again to social worker aide - Per Psych, patient is not currently suicidal and does not require inpatient BSU (4) Diabetes mellitus, type 2 Comment: - A1C 11.5% in February, repeat A1c pending; d/t noncompliance with medications - Continue Lantus, Lispro SS (5) HTN (hypertension) Code(s): I10 - ESSENTIAL (PRIMARY) HYPERTENSION Comment: - Slightly hypertensive, SBP 130-150s - BP was elevated at admission, patient was likely not taking meds 2/2 encphalopathy - Holding losartan, HCTZ, furosemide - Continue amlodipine, atenolol (6) CKD (chronic kidney disease) stage 3, GFR 30-59 ml/min Code(s): N18.3 - CHRONIC KIDNEY DISEASE, STAGE 3 (MODERATE) Comment: - Creatinine at baseline - LANE previously documented, though creatinine appears consistent since March 2018 - Should likely be on renal dosing of medications (7) Anemia Code(s): D64.9 - ANEMIA, UNSPECIFIED Comment: - Stable - Iron studies previously normal, suspect anemia of chronic disease 2/2 CKD (8) Hypothyroidism Code(s): E03.9 - HYPOTHYROIDISM, UNSPECIFIED Comment: - Continue levothyroxine (9) DVT prophylaxis Comment: - Lovenox SQ (10) Full code status Code(s): Z78.9 - OTHER SPECIFIED HEALTH STATUS Comment: Status and Disposition: Inpatient. Discharge to [facility] when bed obtained. Attending: Monique Cerna
[2018-12-23] MEDS: Enoxaparin(*) 30 MG/0.3 ML SYR SUBCUT SCH (17:35)
[2018-12-23] MEDS: Senna TAB 8.6 mg* TAB PO PRN (17:35)
[2018-12-23] MEDS: Melatonin 3 MG TAB PO SCH (20:10)
[2018-12-24] MEDS: Acetaminophen TAB* 325 MG PO PRN ×3 (00:01→22:10)
[2018-12-24] MEDS: Levothyroxine TAB* 137 MCG TAB PO SCH (05:44)
[2018-12-24 07:36] LABS: ABS Basophils 0.1 10^3/ul (0-0.2); ABS Eosinophils 0.2 10^3/ul (0-0.6); ABS Lymphocytes 1.2 10^3/ul (1.0-4.8); ABS Monocytes 0.7 10^3/ul (0-0.8); ABS Neutrophils 8.4 10^3/ul (1.5-7.7); Eosinophil % 1.7 %; Hematocrit 23 % (35-47); Hemoglobin 7.7 g/dL (12.0-16.0); Lymphocyte % 11.5 %; Mean Corpuscular HGB Conc 34 g/dL (31-36); Mean Corpuscular Hemoglobin 28 pg (27-31); Mean Corpuscular Volume 82 fL (80-97); Mean Platelet Volume 7.4 fL (7.4-10.4); Platelet Count 307 10^3/uL (150-450); Red Blood Count 2.74 10^6 /uL (3.70-4.87); Red Cell Distribution Width 15 % (10-15); White Blood Count 10.6 10^3/uL (3.5-10.8)
[2018-12-24 07:54] LABS: EGFR African American 19.1 (>60); EGFR Non-African American 15.8 (>60); Potassium 3.9 mmol/L (3.5-5.0)
[2018-12-24] MEDS: Insulin LISPRO* 1 UNITS UNIT SUBCUT SCH ×4 (08:27→21:45)
[2018-12-24] MEDS: Insulin GLARGINE(*) 1 UNITS UNIT SUBCUT SCH (08:27)
[2018-12-24] MEDS: Aspirin EC TAB* 81 MG TAB.EC PO SCH (08:28)
[2018-12-24] MEDS: amLODIPine TAB* 5 MG PO SCH (08:28)
[2018-12-24] MEDS: Atorvastatin* 20 MG TAB PO SCH (08:29)
[2018-12-24] MEDS: Atenolol TAB* 50 MG PO SCH (08:29)
[2018-12-24] MEDS: Senna TAB 8.6 mg* TAB PO SCH ×2 (08:30→21:48)
[2018-12-24] MEDS: Pantoprazole TAB * 40 MG TAB PO SCH (08:30)
[2018-12-24] MEDS: Lactobacillus Acidophilus* 1 TAB PO SCH ×2 (08:30→21:48)
[2018-12-24] MEDS: Docusate CAP* 100 MG PO SCH ×2 (08:30→21:48)
[2018-12-24] MEDS: Venlafaxine EXT RELEASE CAP* 37.5 MG PO SCH (08:31)
[2018-12-24] MEDS: Sertraline* 50 MG TAB PO SCH (08:31)
[2018-12-24] MEDS: Fluticasone NASAL SPRAY 50MCG* 16 gm SPRAY BTL BOTH NARES SCH (08:32)
[2018-12-24] MEDS: guaiFENesin ER TAB 600 MG PO SCH ×2 (09:53→21:47)
[2018-12-24] MEDS: Cetirizine* 10 MG TAB PO SCH (09:53)
[2018-12-24] MEDS: cefTRIAXone(*) 1 GM in NS 0.9% 50 ML* 50 ML IVPB SCH (12:46)
--- NOTE | 2018-12-24 15:19 | PN ---
Subjective Date of Service: 12/24/18 Interval History: Ms. Montemayor is feeling better today. Malaise is resolved. She does c/o "allergy " symptoms such as postnasal drip. She takes Flonase and OTC allergy medicine for this at home. She denies CP, SOB, N/V. She does not want to go to rehab, but is agreeable if necessary. No concerns from nursing. Family History: Unchanged from Admission Social History: Unchanged from Admission Past Medical History: Unchanged from Admission Objective Active Medications: Acetaminophen (Tylenol Tab*) 650 mg PO Q4H PRN Fever>100.9/Pain-mild Al Hydrox/Mg Hydrox/Simethicone (Maalox Plus*) 30 ml PO Q6H PRN INDIGESTION Amlodipine Besylate (Norvasc Tab*) 10 mg PO DAILY [facility] Aspirin (Aspirin Ec Tab*) 81 mg PO DAILY [facility] Atenolol (Tenormin Tab*) 100 mg PO DAILY [facility] Atorvastatin Calcium (Lipitor*) 20 mg PO DAILY [facility] Cetirizine HCl (Zyrtec*) 10 mg PO DAILY [facility] Dextrose (D50w Syringe 50 Ml*) 12.5 gm IV PUSH .FOR FS < 60 - SS PRN FS < 60 Docusate Sodium (Colace Cap*) 100 mg PO BID [facility] Enoxaparin Sodium (Lovenox(*)) 30 mg SUBCUT Q24H [facility] Fluticasone Propionate (Flonase Nasal [place] 50mcg*) 2 spray BOTH NARES DAILY [facility] Guaifenesin (Mucinex*) 600 mg PO BID [facility] Ceftriaxone Sodium 1 gm/ (Sodium Chloride) 50 mls @ 100 mls/hr IVPB Q24H [facility] Insulin Glargine (Lantus(*)) 10 units SUBCUT Q24H [facility] Insulin Human Lispro (Humalog*) 0 units SUBCUT ACHS [facility]; Protocol Lactobacillus Rhamnosus (Lactobacillus Acidophilus*) 1 tab PO BID [facility] Levothyroxine Sodium (Synthroid Tab*) 137 mcg PO 0600 [facility] Lorazepam (Ativan Tab(*)) 0.5 mg PO Q8H PRN ANXIETY Melatonin (Melatonin) 6 mg PO BEDTIME [facility] Pantoprazole Sodium (Protonix Tab*) 40 mg PO DAILY [facility] Polyethylene Glycol/Electrolytes (Miralax*) 17 gm PO Q48H PRN CONSTIPATION Senna (Senokot Tab*) 1 tab PO BID [facility] Senna (Senokot Tab*) 1 tab PO DAILY PRN CONSTIPATION Sertraline HCl (Zoloft*) 50 mg PO DAILY [facility] Simethicone (Mylicon Tab*) 120 mg PO AC PRN INDIGESTION Sodium Chloride (Sodium Chloride 0.65% Nasal [place]*) 2 spray BOTH NARES Q4H PRN CONGESTION Tramadol HCl (Ultram*) 50 mg PO Q12H PRN PAIN Venlafaxine HCl (Effexor Xr Cap*) 187.5 mg PO DAILY [facility] Vital Signs - 8 hr 12/24/18 12/24/18 12/24/18 07:15 08:00 11:25 Temperature 97.8 F 97.6 F Pulse Rate 81 79 Respiratory 18 18 19 Rate Blood Pressure 143/56 151/67 (mmHg) O2 Sat by Pulse 97 97 90 Oximetry Oxygen Devices in Use Now: Nasal Cannula - 2L Appearance: Elderly female laying in bed in NAD Eyes: No Scleral Icterus Ears/Nose/Mouth/Throat: Mucous Membranes Moist Neck: NL Appearance and Movements; NL JVP, Trachea Midline Respiratory: Symmetrical Chest Expansion and Respiratory Effort, Clear to Auscultation Cardiovascular: NL Sounds; No Murmurs; No JVD, RRR Abdominal: NL Sounds; No Tenderness; No Distention Extremities: No Edema Neurological: Alert and Oriented x 3 Lines/Tubes/Other Access: Clean, Dry and Intact Peripheral IV Nutrition: Taking PO's Result Diagrams: 12/24/18 06:54 12/24/18 06:54 Assess/Plan/Problems-Billing Assessment: Ms. Montemayor is a 73 yo F with PMH of CKD, HTN and IDDM that presented with AMS and sepsis 2/2 UTI. - Patient Problems (1) UTI (urinary tract infection) Comment: - Weak enterobacter positive urine likely 2/2 outpatient antibiotics - Emprically treated with zosyn in the ED to cover for sepsis - Continue ceftriaxone IV (day 5/7); change to cefuroxime at discharge (2) Sepsis Comment: - Resolved - With altered mentation, tachycardia, fever 102.2 on admission; urinary source - Lactic acid normal; blood culture NTD (3) Suicidal ideation Code(s): R45.851 - SUICIDAL IDEATIONS Comment: - Initially made statements in the ED and again to social work supervisor - Per Psych, patient is not currently suicidal and does not require inpatient BSU (4) Diabetes mellitus, type 2 Comment: - A1C 11.5% in February, repeat A1c pending; d/t noncompliance with medications - Continue Lantus, Lispro SS (5) HTN (hypertension) Code(s): I10 - ESSENTIAL (PRIMARY) HYPERTENSION Comment: - Slightly hypertensive, SBP 130-150s - BP was elevated at admission, patient was likely not taking meds 2/2 encphalopathy - Holding losartan, HCTZ - Continue amlodipine, atenolol; resume furosemide (6) CKD (chronic kidney disease) stage 3, GFR 30-59 ml/min Code(s): N18.3 - CHRONIC KIDNEY DISEASE, STAGE 3 (MODERATE) Comment: - Creatinine slightly up today - LANE previously documented, though creatinine appears consistently around 2.5 since March 2018 - Should likely be on renal dosing of medications (7) Anemia Code(s): D64.9 - ANEMIA, UNSPECIFIED Comment: - Stable - Iron studies previously normal, suspect anemia of chronic disease 2/2 CKD (8) Hypothyroidism Code(s): E03.9 - HYPOTHYROIDISM, UNSPECIFIED Comment: - Continue levothyroxine (9) DVT prophylaxis Comment: - Lovenox SQ (10) Full code status Code(s): Z78.9 - OTHER SPECIFIED HEALTH STATUS Comment: Status and Disposition: Inpatient. Discharge to [facility] when bed obtained. Attending: Monique Cerna
[2018-12-24] MEDS: Furosemide TAB* 20 MG PO SCH (15:49)
[2018-12-24] MEDS: Enoxaparin(*) 30 MG/0.3 ML SYR SUBCUT SCH (15:49)
[2018-12-24] MEDS ORDERED: Furosemide TAB* 20 MG PO SCH (16:00)
[2018-12-24] MEDS ORDERED: Lactated Ringers 1000 ML Bag* 1,000 ML IV SCH (16:00)
[2018-12-24] MEDS: Melatonin 3 MG TAB PO SCH (21:46)
[2018-12-24] MEDS: LORazepam TAB(*) 0.5 MG PO PRN (22:09)
[2018-12-25 05:19] LABS: Hematocrit 23 % (35-47); Hemoglobin 7.5 g/dL (12.0-16.0); Mean Corpuscular HGB Conc 33 g/dL (31-36); Mean Corpuscular Hemoglobin 27 pg (27-31); Mean Corpuscular Volume 83 fL (80-97); Mean Platelet Volume 7.3 fL (7.4-10.4); Platelet Count 393 10^3/uL (150-450); Red Blood Count 2.74 10^6 /uL (3.70-4.87); Red Cell Distribution Width 15 % (10-15); White Blood Count 11.8 10^3/uL (3.5-10.8)
[2018-12-25] MEDS: Levothyroxine TAB* 137 MCG TAB PO SCH (05:22)
[2018-12-25 05:36] LABS: BUN/Creatinine Ratio 19.4 (8-20); Calcium 8.9 mg/dL (8.6-10.3); EGFR African American 19.2 (>60); EGFR Non-African American 15.9 (>60); Potassium 4.1 mmol/L (3.5-5.0)
[2018-12-25 05:54] LABS: ABS Basophils 0.1 10^3/ul (0-0.2); ABS Eosinophils 0.4 10^3/ul (0-0.6); ABS Lymphocytes 1.5 10^3/ul (1.0-4.8); ABS Monocytes 0.7 10^3/ul (0-0.8); ABS Neutrophils 9.1 10^3/ul (1.5-7.7); Eosinophil % 3.8 %; Lymphocyte % 12.4 %
[2018-12-25] MEDS: Acetaminophen TAB* 325 MG PO PRN (06:36)
[2018-12-25] MEDS: Insulin LISPRO* 1 UNITS UNIT SUBCUT SCH ×4 (08:26→23:06)
[2018-12-25] MEDS: Atenolol TAB* 50 MG PO SCH (08:27)
[2018-12-25] MEDS: Atorvastatin* 20 MG TAB PO SCH (08:27)
[2018-12-25] MEDS: amLODIPine TAB* 5 MG PO SCH (08:27)
[2018-12-25] MEDS: Aspirin EC TAB* 81 MG TAB.EC PO SCH (08:27)
[2018-12-25] MEDS: Pantoprazole TAB * 40 MG TAB PO SCH (08:33)
[2018-12-25] MEDS: Lactobacillus Acidophilus* 1 TAB PO SCH ×2 (08:33→22:51)
[2018-12-25] MEDS: Cetirizine* 10 MG TAB PO SCH (08:33)
[2018-12-25] MEDS: guaiFENesin ER TAB 600 MG PO SCH ×2 (08:34→22:51)
[2018-12-25] MEDS: Senna TAB 8.6 mg* TAB PO SCH ×2 (08:34→22:51)
[2018-12-25] MEDS: Venlafaxine EXT RELEASE CAP* 37.5 MG PO SCH (08:34)
[2018-12-25] MEDS: Insulin GLARGINE(*) 1 UNITS UNIT SUBCUT SCH (08:34)
[2018-12-25] MEDS: Docusate CAP* 100 MG PO SCH ×2 (08:34→22:51)
[2018-12-25] MEDS: Sertraline* 50 MG TAB PO SCH (08:35)
[2018-12-25] MEDS: Furosemide TAB* 20 MG PO SCH (08:35)
[2018-12-25] MEDS: Fluticasone NASAL SPRAY 50MCG* 16 gm SPRAY BTL BOTH NARES SCH (08:45)
[2018-12-25] MEDS: cefTRIAXone(*) 1 GM in NS 0.9% 50 ML* 50 ML IVPB SCH (12:43)
[2018-12-25] MEDS ORDERED: Furosemide IV* 10 MG/ML VIAL (40 MG) IV ONE (13:32)
--- NOTE | 2018-12-25 13:38 | PN ---
Subjective Date of Service: 12/25/18 Interval History: Ms. Montemayor is feeling fine this morning. She is sleeping on my exam and is not particularly interested in having a conversation with me and would rather go back to sleep. Denies SOB, CP. No concerns from nursing. Family History: Unchanged from Admission Social History: Unchanged from Admission Past Medical History: Unchanged from Admission Objective Active Medications: Acetaminophen (Tylenol Tab*) 650 mg PO Q4H PRN Fever>100.9/Pain-mild Al Hydrox/Mg Hydrox/Simethicone (Maalox Plus*) 30 ml PO Q6H PRN INDIGESTION Amlodipine Besylate (Norvasc Tab*) 10 mg PO DAILY [facility] Aspirin (Aspirin Ec Tab*) 81 mg PO DAILY [facility] Atenolol (Tenormin Tab*) 100 mg PO DAILY [facility] Atorvastatin Calcium (Lipitor*) 20 mg PO DAILY [facility] Cetirizine HCl (Zyrtec*) 10 mg PO DAILY [facility] Dextrose (D50w Syringe 50 Ml*) 12.5 gm IV PUSH .FOR FS < 60 - SS PRN FS < 60 Docusate Sodium (Colace Cap*) 100 mg PO BID [facility] Enoxaparin Sodium (Lovenox(*)) 30 mg SUBCUT Q24H [facility] Fluticasone Propionate (Flonase Nasal [place] 50mcg*) 2 spray BOTH NARES DAILY [facility] Furosemide (Lasix Tab*) 20 mg PO DAILY [facility] Guaifenesin (Mucinex*) 600 mg PO BID [facility] Ceftriaxone Sodium 1 gm/ (Sodium Chloride) 50 mls @ 100 mls/hr IVPB Q24H [facility] Insulin Glargine (Lantus(*)) 10 units SUBCUT Q24H [facility] Insulin Human Lispro (Humalog*) 0 units SUBCUT ACHS [facility]; Protocol Lactobacillus Rhamnosus (Lactobacillus Acidophilus*) 1 tab PO BID [facility] Levothyroxine Sodium (Synthroid Tab*) 137 mcg PO 0600 [facility] Lorazepam (Ativan Tab(*)) 0.5 mg PO Q8H PRN ANXIETY Melatonin (Melatonin) 6 mg PO BEDTIME [facility] Pantoprazole Sodium (Protonix Tab*) 40 mg PO DAILY [facility] Polyethylene Glycol/Electrolytes (Miralax*) 17 gm PO Q48H PRN CONSTIPATION Senna (Senokot Tab*) 1 tab PO BID [facility] Senna (Senokot Tab*) 1 tab PO DAILY PRN CONSTIPATION Sertraline HCl (Zoloft*) 50 mg PO DAILY [facility] Simethicone (Mylicon Tab*) 120 mg PO AC PRN INDIGESTION Sodium Chloride (Sodium Chloride 0.65% Nasal [place]*) 2 spray BOTH NARES Q4H PRN CONGESTION Tramadol HCl (Ultram*) 50 mg PO Q12H PRN PAIN Venlafaxine HCl (Effexor Xr Cap*) 187.5 mg PO DAILY [facility] Vital Signs - 8 hr 12/25/18 12/25/18 07:15 08:00 Pulse Rate 76 Respiratory 18 18 Rate Blood Pressure 168/71 (mmHg) O2 Sat by Pulse 92 92 Oximetry Oxygen Devices in Use Now: Nasal Cannula - 1L Appearance: Elderly female laying in bed in NAD Eyes: No Scleral Icterus Ears/Nose/Mouth/Throat: Mucous Membranes Moist Neck: NL Appearance and Movements; NL JVP, Trachea Midline Respiratory: Symmetrical Chest Expansion and Respiratory Effort, Clear to Auscultation Cardiovascular: NL Sounds; No Murmurs; No JVD, RRR Abdominal: NL Sounds; No Tenderness; No Distention Extremities: - - +1 pitting BLE Neurological: Alert and Oriented x 3 - Drowsy Lines/Tubes/Other Access: Clean, Dry and Intact Peripheral IV Nutrition: Taking PO's Result Diagrams: 12/25/18 04:35 12/25/18 04:35 Assess/Plan/Problems-Billing Assessment: Ms. Montemayor is a 73 yo F with PMH of CKD, HTN and IDDM that presented with AMS and sepsis 2/2 UTI. - Patient Problems (1) UTI (urinary tract infection) Comment: - Weak enterobacter positive urine likely 2/2 outpatient antibiotics - Emprically treated with zosyn in the ED to cover for sepsis - Continue ceftriaxone IV (day 6/7); change to cefuroxime at discharge (2) Sepsis Comment: - Resolved - With altered mentation, tachycardia, fever 102.2 on admission; urinary source - Lactic acid normal; blood culture NTD (3) Suicidal ideation Code(s): R45.851 - SUICIDAL IDEATIONS Comment: - Initially made statements in the ED and again to social media coordinator - Per Psych, patient is not currently suicidal and does not require inpatient BSU (4) Chronic diastolic congestive heart failure Code(s): I50.32 - CHRONIC DIASTOLIC (CONGESTIVE) HEART FAILURE Comment: - Not in acute exacerbation, but there is evidence of mild fluid overload, likely d/t being off furosemide - Echo from 12/2017 shows EF 50-55%, evidence of diastolic dysfunction - Hold losartan and HCTZ d/t renal function - Continue furosemide; additional furosemide x1 today (5) CKD (chronic kidney disease) stage 3, GFR 30-59 ml/min Code(s): N18.3 - CHRONIC KIDNEY DISEASE, STAGE 3 (MODERATE) Comment: - Mild LANE with creatinine slightly up again today, suspect d/t volume overload - Creatinine appears consistently around 2.5 since March 2018 - Should likely be on renal dosing of medications (6) Diabetes mellitus, type 2 Comment: - A1C 11.5% in February, repeat A1c pending; d/t noncompliance with medications - Continue Lantus, Lispro SS (7) HTN (hypertension) Code(s): I10 - ESSENTIAL (PRIMARY) HYPERTENSION Comment: - Slightly hypertensive, SBP 130-160s - BP was elevated at admission, patient was likely not taking meds 2/2 encphalopathy - Holding losartan, HCTZ - Continue amlodipine, atenolol; resume furosemide (8) Anemia Code(s): D64.9 - ANEMIA, UNSPECIFIED Comment: - Stable - Iron studies previously normal, suspect anemia of chronic disease 2/2 CKD (9) Hypothyroidism Code(s): E03.9 - HYPOTHYROIDISM, UNSPECIFIED Comment: - Continue levothyroxine (10) DVT prophylaxis Comment: - Lovenox SQ (11) Full code status Code(s): Z78.9 - OTHER SPECIFIED HEALTH STATUS Comment: Status and Disposition: Inpatient. Discharge to [facility] when medically stable. Attending: Ana Maria Butcher
[2018-12-25] MEDS: Enoxaparin(*) 30 MG/0.3 ML SYR SUBCUT SCH (14:27)
[2018-12-25] MEDS: LORazepam TAB(*) 0.5 MG PO PRN (22:50)
[2018-12-25] MEDS: Melatonin 3 MG TAB PO SCH (22:51)
[2018-12-26] MEDS: Levothyroxine TAB* 137 MCG TAB PO SCH (05:20)
[2018-12-26 05:27] LABS: Hematocrit 23 % (35-47); Hemoglobin 7.8 g/dL (12.0-16.0); Mean Corpuscular HGB Conc 33 g/dL (31-36); Mean Corpuscular Hemoglobin 28 pg (27-31); Mean Corpuscular Volume 83 fL (80-97); Mean Platelet Volume 7.2 fL (7.4-10.4); Platelet Count 473 10^3/uL (150-450); Red Blood Count 2.83 10^6 /uL (3.70-4.87); Red Cell Distribution Width 15 % (10-15); White Blood Count 11.8 10^3/uL (3.5-10.8)
[2018-12-26 05:42] LABS: Calcium 8.8 mg/dL (8.6-10.3); Potassium 4.2 mmol/L (3.5-5.0)
[2018-12-26 05:47] LABS: BUN/Creatinine Ratio 21.6 (8-20); EGFR African American 19.1 (>60); EGFR Non-African American 15.8 (>60)
[2018-12-26 06:15] LABS: ABS Basophils 0.1 10^3/ul (0-0.2); ABS Eosinophils 0.5 10^3/ul (0-0.6); ABS Lymphocytes 1.4 10^3/ul (1.0-4.8); ABS Monocytes 0.7 10^3/ul (0-0.8); ABS Neutrophils 9.2 10^3/ul (1.5-7.7); Eosinophil % 3.9 %; Lymphocyte % 11.5 %
[2018-12-26] MEDS: Insulin LISPRO* 1 UNITS UNIT SUBCUT SCH ×4 (08:36→22:22)
[2018-12-26] MEDS: Insulin GLARGINE(*) 1 UNITS UNIT SUBCUT SCH (08:36)
[2018-12-26] MEDS: Cetirizine* 10 MG TAB PO SCH (08:37)
[2018-12-26] MEDS: Venlafaxine EXT RELEASE CAP* 37.5 MG PO SCH (08:38)
[2018-12-26] MEDS: Lactobacillus Acidophilus* 1 TAB PO SCH ×2 (08:38→22:23)
[2018-12-26] MEDS: Aspirin EC TAB* 81 MG TAB.EC PO SCH (08:39)
[2018-12-26] MEDS: guaiFENesin ER TAB 600 MG PO SCH ×2 (08:39→22:23)
[2018-12-26] MEDS: Atenolol TAB* 50 MG PO SCH (08:39)
[2018-12-26] MEDS: Docusate CAP* 100 MG PO SCH ×2 (08:39→22:23)
[2018-12-26] MEDS: amLODIPine TAB* 5 MG PO SCH (08:39)
[2018-12-26] MEDS: Atorvastatin* 20 MG TAB PO SCH (08:41)
[2018-12-26] MEDS: Pantoprazole TAB * 40 MG TAB PO SCH (08:41)
[2018-12-26] MEDS: Furosemide TAB* 20 MG PO SCH (08:41)
[2018-12-26] MEDS: Senna TAB 8.6 mg* TAB PO SCH ×2 (08:42→22:22)
[2018-12-26] MEDS: Sertraline* 50 MG TAB PO SCH (10:29)
[2018-12-26] MEDS: Fluticasone NASAL SPRAY 50MCG* 16 gm SPRAY BTL BOTH NARES SCH (12:51)
--- NOTE | 2018-12-26 13:54 | PN ---
Subjective Date of Service: 12/26/18 Interval History: Ms. Montemayor is feeling fine this morning. She has some GI upset. Feeling a bit nauseous, but no vomiting and she was able to eat a full breakfast. She denies urinary symptoms. No CP, SOB. Nursing reports desaturations while ambulating, requiring 2L. Family History: Unchanged from Admission Social History: Unchanged from Admission Past Medical History: Unchanged from Admission Objective Active Medications: Acetaminophen (Tylenol Tab*) 650 mg PO Q4H PRN Fever>100.9/Pain-mild Al Hydrox/Mg Hydrox/Simethicone (Maalox Plus*) 30 ml PO Q6H PRN INDIGESTION Amlodipine Besylate (Norvasc Tab*) 10 mg PO DAILY [facility] Aspirin (Aspirin Ec Tab*) 81 mg PO DAILY [facility] Atenolol (Tenormin Tab*) 100 mg PO DAILY [facility] Atorvastatin Calcium (Lipitor*) 20 mg PO DAILY [facility] Cetirizine HCl (Zyrtec*) 10 mg PO DAILY [facility] Dextrose (D50w Syringe 50 Ml*) 12.5 gm IV PUSH .FOR FS < 60 - SS PRN FS < 60 Docusate Sodium (Colace Cap*) 100 mg PO BID [facility] Enoxaparin Sodium (Lovenox(*)) 30 mg SUBCUT Q24H [facility] Fluticasone Propionate (Flonase Nasal [place] 50mcg*) 2 spray BOTH NARES DAILY [facility] Furosemide (Lasix Tab*) 20 mg PO DAILY [facility] Guaifenesin (Mucinex*) 600 mg PO BID [facility] Ceftriaxone Sodium 1 gm/ (Sodium Chloride) 50 mls @ 100 mls/hr IVPB Q24H [facility] Insulin Glargine (Lantus(*)) 10 units SUBCUT Q24H [facility] Insulin Human Lispro (Humalog*) 0 units SUBCUT ACHS [facility]; Protocol Lactobacillus Rhamnosus (Lactobacillus Acidophilus*) 1 tab PO BID [facility] Levothyroxine Sodium (Synthroid Tab*) 137 mcg PO 0600 [facility] Lorazepam (Ativan Tab(*)) 0.5 mg PO Q8H PRN ANXIETY Melatonin (Melatonin) 6 mg PO BEDTIME [facility] Pantoprazole Sodium (Protonix Tab*) 40 mg PO DAILY [facility] Polyethylene Glycol/Electrolytes (Miralax*) 17 gm PO Q48H PRN CONSTIPATION Senna (Senokot Tab*) 1 tab PO BID [facility] Senna (Senokot Tab*) 1 tab PO DAILY PRN CONSTIPATION Sertraline HCl (Zoloft*) 50 mg PO DAILY [facility] Simethicone (Mylicon Tab*) 120 mg PO AC PRN INDIGESTION Sodium Chloride (Sodium Chloride 0.65% Nasal [place]*) 2 spray BOTH NARES Q4H PRN CONGESTION Tramadol HCl (Ultram*) 50 mg PO Q12H PRN PAIN Venlafaxine HCl (Effexor Xr Cap*) 187.5 mg PO DAILY [facility] Oxygen Devices in Use Now: Nasal Cannula - 1L Appearance: Elderly female laying in bed in NAD Eyes: No Scleral Icterus Ears/Nose/Mouth/Throat: Mucous Membranes Moist Neck: NL Appearance and Movements; NL JVP, Trachea Midline Respiratory: Symmetrical Chest Expansion and Respiratory Effort, Clear to Auscultation Cardiovascular: NL Sounds; No Murmurs; No JVD, RRR Abdominal: - - Normoactive BS; midline slightly tender Extremities: - - Mild nonpitting BLE Neurological: Alert and Oriented x 3 Lines/Tubes/Other Access: Clean, Dry and Intact Peripheral IV Nutrition: Taking PO's Result Diagrams: 12/26/18 04:55 12/26/18 04:55 Assess/Plan/Problems-Billing Assessment: Ms. Montemayor is a 73 yo F with PMH of CKD, HTN and IDDM that presented with AMS and sepsis 2/2 UTI. - Patient Problems (1) UTI (urinary tract infection) Comment: - Weak enterobacter positive urine likely 2/2 outpatient antibiotics - Emprically treated with zosyn in the ED to cover for sepsis - Continue ceftriaxone IV (day 11/26) (2) Sepsis Comment: - Resolved - With altered mentation, tachycardia, fever 102.2 on admission; urinary source - Lactic acid normal; blood culture NTD (3) Suicidal ideation Code(s): R45.851 - SUICIDAL IDEATIONS Comment: - Initially made statements in the ED and again to hospital social worker - Per Psych, patient is not currently suicidal and does not require inpatient BSU (4) Chronic diastolic congestive heart failure Code(s): I50.32 - CHRONIC DIASTOLIC (CONGESTIVE) HEART FAILURE Comment: - Not in acute exacerbation, but there is evidence of mild fluid overload, likely d/t being off furosemide - Echo from 12/2017 shows EF 50-55%, evidence of diastolic dysfunction - Hold losartan and HCTZ d/t renal function - Increase furosemide (5) CKD (chronic kidney disease) stage 3, GFR 30-59 ml/min Code(s): N18.3 - CHRONIC KIDNEY DISEASE, STAGE 3 (MODERATE) Comment: - Mild LANE with creatinine slightly up again today, suspect d/t volume overload - Creatinine appears consistently around 2.5 since March 2018 - Should likely be on renal dosing of medications (6) Diabetes mellitus, type 2 Comment: - A1C 11.5% in February, repeat A1c pending; d/t noncompliance with medications - Continue Lantus, Lispro SS (7) HTN (hypertension) Code(s): I10 - ESSENTIAL (PRIMARY) HYPERTENSION Comment: - Slightly hypertensive, SBP 120-160s - BP was elevated at admission, patient was likely not taking meds 2/2 encphalopathy - Holding losartan, HCTZ - Continue amlodipine, atenolol; resume furosemide (8) Anemia Code(s): D64.9 - ANEMIA, UNSPECIFIED Comment: - Stable - Iron studies previously normal, suspect anemia of chronic disease 2/2 CKD (9) Hypothyroidism Code(s): E03.9 - HYPOTHYROIDISM, UNSPECIFIED Comment: - Continue levothyroxine (10) DVT prophylaxis Comment: - Lovenox SQ (11) Full code status Code(s): Z78.9 - OTHER SPECIFIED HEALTH STATUS Comment: Status and Disposition: Inpatient. Discharge to [facility] when bed available. Attending: Ana Maria Butcher
[2018-12-26] MEDS: cefTRIAXone(*) 1 GM in NS 0.9% 50 ML* 50 ML IVPB SCH (14:27)
[2018-12-26] MEDS: Enoxaparin(*) 30 MG/0.3 ML SYR SUBCUT SCH (17:04)
[2018-12-26] MEDS: Furosemide TAB* 40 MG PO SCH (17:04)
[2018-12-26] MEDS: LORazepam TAB(*) 0.5 MG PO PRN (22:22)
[2018-12-26] MEDS: Melatonin 3 MG TAB PO SCH (22:23)
[2018-12-27] MEDS ORDERED: Carvedilol TAB* 6.25 MG ONE (00:57)
[2018-12-27] MEDS: Carvedilol TAB* 6.25 MG PO SCH ×2 (01:09→08:29)
[2018-12-27 06:06] LABS: BUN/Creatinine Ratio 21.5 (8-20); Calcium 8.5 mg/dL (8.6-10.3); EGFR African American 20.8 (>60); EGFR Non-African American 17.2 (>60); Potassium 4.2 mmol/L (3.5-5.0)
[2018-12-27] MEDS: Levothyroxine TAB* 137 MCG TAB PO SCH (06:08)
[2018-12-27] MEDS: Insulin LISPRO* 1 UNITS UNIT SUBCUT SCH ×2 (08:27→12:24)
[2018-12-27] MEDS: guaiFENesin ER TAB 600 MG PO SCH (08:28)
[2018-12-27] MEDS: Pantoprazole TAB * 40 MG TAB PO SCH (08:28)
[2018-12-27] MEDS: Insulin GLARGINE(*) 1 UNITS UNIT SUBCUT SCH (08:28)
[2018-12-27] MEDS: Aspirin EC TAB* 81 MG TAB.EC PO SCH (08:28)
[2018-12-27] MEDS: Cetirizine* 10 MG TAB PO SCH (08:28)
[2018-12-27] MEDS: Venlafaxine EXT RELEASE CAP* 37.5 MG PO SCH (08:29)
[2018-12-27] MEDS: amLODIPine TAB* 5 MG PO SCH (08:29)
[2018-12-27] MEDS: Furosemide TAB* 40 MG PO SCH (08:29)
[2018-12-27] MEDS: Atorvastatin* 20 MG TAB PO SCH (08:29)
[2018-12-27] MEDS: Sertraline* 50 MG TAB PO SCH (08:29)
[2018-12-27] MEDS: Lactobacillus Acidophilus* 1 TAB PO SCH (08:29)
[2018-12-27] MEDS: Senna TAB 8.6 mg* TAB PO SCH (08:30)
[2018-12-27] MEDS: Fluticasone NASAL SPRAY 50MCG* 16 gm SPRAY BTL BOTH NARES SCH (08:30)
[2018-12-27] MEDS: Docusate CAP* 100 MG PO SCH (08:30)
[2018-12-27] MEDS ORDERED: Losartan TAB* 25 MG PO SCH (09:00)
--- NOTE | 2018-12-27 11:40 | DS ---
CC: Dr. Zakia Zurita * DISCHARGE SUMMARY: DATE OF ADMISSION: 12/20/18 DATE OF DISCHARGE: 12/27/18 PRIMARY CARE PROVIDER: Dr. Zakia Zurita. MY ATTENDING WHILE IN THE HOSPITAL: Dr. Ana Maria Butcher.* (DICTATED BY KEVIN CEDENO) PRIMARY DISCHARGE DIAGNOSES: 1. Urinary tract infection, culture negative with sepsis on admission, now resolved, difficulty conditioning. 2. Anemia. SECONDARY DISCHARGE DIAGNOSES: 1. Diabetes mellitus type 2, poor control. 2. Hypertension. 3. History of pulmonary embolism, not on anticoagulation. 4. Posttraumatic stress disorder. 5. Depression. 6. Gastroesophageal reflux disease with gastritis. 7. Chronic pain. 8. Diabetic neuropathy. 9. Recurrent Clostridium difficile. 10. History of subdural hematoma. 11. History of breast cancer, status post radiation in 2009. STUDIES DONE WHILE IN THE HOSPITAL: Chest x-ray from 12/20/18 read as no acute cardiopulmonary process. Abdomen and pelvis CT read as no acute findings in the abdomen and pelvis, duodenal sigmoid diverticulosis without diverticulitis, tiny fat containing periumbilical hernia which is similar in appearance, a 9 mm thick lesion at the uncinate process of the pancreas, which is stable compared to prior CT exam. Small amount of gas within the urinary bladder correlated with recent instrumentation. MEDICATIONS AT DISCHARGE: 1. Sertraline 50 mg p.o. daily. 2. Venlafaxine 150 mg p.o. daily. 3. Amlodipine 10 mg p.o. daily. 4. Atorvastatin 20 mg p.o. daily. 5. Simethicone 125 mg p.o. with meals as needed for gas pain. 6. Prilosec 20 mg p.o. daily. 7. Carvedilol 6.25 mg p.o. b.i.d. 8. Aspirin 81 mg p.o. daily. 9. Fluticasone nasal spray 2 sprays both nares daily. 10. Melatonin 3 mg p.o. at bedtime as needed. 11. MiraLAX 17 g p.o. q.4 hours as needed. 12. Loperamide 2 mg p.o. daily with meals. 13. Potassium chloride 10 mEq p.o. daily. 14. Insulin glargine 10 units subcutaneous daily with meals. 15. Furosemide 40 mg p.o. daily with meals. 16. Levothyroxine 137 mcg p.o. daily. 17. Tramadol 50 mg p.o. q.12 hours as needed. 18. Tylenol 650 mg p.o. q.4 hours as needed. 19. Cetirizine 10 mg p.o. daily. 20. Insulin lispro sliding scale a.c. and h.s. 21. Lactobacillus acidophilus 1 tab p.o. b.i.d. 22. Losartan 25 mg p.o. daily. 23. Melatonin 6 mg p.o. at bedtime. Medications discontinued at discharge: 1. Furosemide 20 mg p.o. daily. 2. Atenolol 100 mg p.o. daily. 3. Losartan/hydrochlorothiazide 100/25, 1 tab p.o. daily. HOSPITAL COURSE: This is a brief summary of the patient's presentation. For more details, please see history and physical from Odalys Chase MD on . In brief, the patient is a 73-year-old female with past medical history significant for the above, who has been admitted to this hospital numerous times in the past several years for various causes. The patient came in to the emergency department with complaints of symptoms consistent with urinary tract infection. Was prescribed Macrobid from her primary care provider and afterwards she got fevers, chills, and flank pain. In the emergency department , she complained of suicidal ideation, but she said this is only from her pain and nausea. The patient was transitioned to ceftriaxone due to her symptoms consistent with pyelonephritis or complicated urinary tract infection. The patient improved greatly on this. The patient initially had a fever and tachycardia, which quickly resolved. The patient did not require vasopressor agents. The patient's blood cultures were negative. The patient's kidney function was worse than her baseline but not very much and did not improve throughout her hospitalization. The patient had some issues with constipation, which were treated and resolved during her hospitalization. The patient was seen in consultation by Physical Therapy, who stated she had rehabable needs. The patient still had slight stinging with urination on 12/27/18. The patient' s creatinine improved slightly to 2.7 but has no electrolyte abnormalities or chronic urgent intervention. The patient was stable and amenable for discharge on 12/27/18. PHYSICAL EXAMINATION ON THE DAY OF DISCHARGE: General: The patient is a 73- year- old female, who appears her stated age, sitting comfortably in bed, in no acute distress. Vital Signs: At the time of evaluation, temperature 98.2, pulse rate 85, respiratory rate 16, oxygen saturation 94% on room air, blood pressure 146/61. HEENT: Head, normocephalic, atraumatic. Sclerae anicteric. No conjunctival injection. Nasal mucosa is moist. Oral mucosa is moist. No pharyngeal erythema, discharge or exudate. Neck: Supple, nontender. No lymphadenopathy. No carotid bruits auscultated. No JVD. Cardiac: Regular rate and rhythm. No clicks, murmurs, gallops or rubs. Pulses 2+ in the bilateral dorsalis pedis, posterior tibialis, and radial areas. 2+ bilateral lower extremity edema, pitting noted. Respiratory: Clear to auscultation bilaterally. No wheezes or rhonchi. Good air exchange bilaterally. Abdomen: Soft, nontender, nondistended. Bowel sounds present and normoactive in all 4 quadrants. No hepatosplenomegaly. No abdominal bruits auscultated. No hepatojugular reflux. Genitourinary: Slight suprapubic tenderness. No CVA tenderness. Neuro: Cranial nerves II through XII are intact. No other focal deficits. Alert and oriented x3. Psychiatric: Pleasant and cooperative. DISCHARGE PLAN: The patient will be discharged to [facility] for subcu rehab. The patient has had significant social issues and living in a hotel for several months. The patient should continue to work with social service worker to attempt to get more stable housing. The patient has had significant issues with noncompliance with her medications and has had very poor glucose control likely very poor blood pressure control, which has lead to a decrease in her renal function. The patient should have a repeat BMP and CBC within 1 week to assess her anemia and her kidney function. Her most recent hemoglobin was 7.8 and her most recent creatinine was 2.7. If these continued to be low, the patient should likely follow up with Nephrology for consideration of buffering for slight acidosis as well as possible IV iron or erythropoietin. The patient' s urinary tract infection has improved. Her sepsis has resolved. The patient's blood pressure is under relatively good control. The patient had losartan restarted on 12/27/18 for renal protection and to slow progression of her chronic kidney disease. The patient should follow up with facility physician and return to the hospital with alarming symptoms such as lack of urinary output , passing out, high fevers. The patient should follow up with primary care provider within 1 week for discharge from [facility]. TIME SPENT: Approximately 60 minutes was spent on the discharge of this patient , 30 of which was spent [id number] with the patient obtaining history and physical and discussing treatment plan. KEVIN CEDENO [id number]/[facility] #: [id number] [place]
[2018-12-27 15:49] VITALS: BP 147/61
== END 2018-12-27 15:55 | DRG 872 ==
LOC: ED 03:44 → MEDTELE 08:13 → MED 12-25 01:47
PROVIDERS: ADMIT Internal Medicine; ATTEND Internal Medicine
DX: A41.9 Sepsis, unspecified organism (principal); R45.851 Suicidal ideations; N17.9 Acute kidney failure, unspecified; F32.0 Major depressive disorder, single episode, mild; I50.32 Chronic diastolic (congestive) heart failure; I13.0 Hypertensive heart and chronic kidney disease with heart failure and stage 1 through stage 4 chronic kidney disease, or unspecified chronic kidney disease; N12 Tubulo-interstitial nephritis, not specified as acute or chronic; E11.22 Type 2 diabetes mellitus with diabetic chronic kidney disease; N18.3 Chronic kidney disease, stage 3 (moderate); E78.00 Pure hypercholesterolemia, unspecified; K58.9 Irritable bowel syndrome, unspecified; M19.90 Unspecified osteoarthritis, unspecified site; E11.319 Type 2 diabetes mellitus with unspecified diabetic retinopathy without macular edema; F41.0 Panic disorder [episodic paroxysmal anxiety]; G89.29 Other chronic pain; F43.10 Post-traumatic stress disorder, unspecified; E11.41 Type 2 diabetes mellitus with diabetic mononeuropathy; K21.0 Gastro-esophageal reflux disease with esophagitis; Z62.810 Personal history of physical and sexual abuse in childhood; K57.50 Diverticulosis of both small and large intestine without perforation or abscess without bleeding; K59.09 Other constipation; K42.9 Umbilical hernia without obstruction or gangrene; D63.1 Anemia in chronic kidney disease; E03.9 Hypothyroidism, unspecified; Z85.3 Personal history of malignant neoplasm of breast; Z88.6 Allergy status to analgesic agent; Z88.8 Allergy status to other drugs, medicaments and biological substances; Z86.718 Personal history of other venous thrombosis and embolism; Z86.711 Personal history of pulmonary embolism; Z92.3 Personal history of irradiation; Z86.19 Personal history of other infectious and parasitic diseases; Z90.49 Acquired absence of other specified parts of digestive tract; Z82.5 Family history of asthma and other chronic lower respiratory diseases; Z82.3 Family history of stroke; Z80.3 Family history of malignant neoplasm of breast; Z81.8 Family history of other mental and behavioral disorders; Z81.1 Family history of alcohol abuse and dependence; Z87.891 Personal history of nicotine dependence; Z79.82 Long term (current) use of aspirin; Z79.4 Long term (current) use of insulin; Z91.14 Patient's other noncompliance with medication regimen
CPT/HCPCS: 36415; 71045; 74176; 80048; 80053; 81003; 81015; 83036; 83605; 84484; 85025; 85610; 85730; 86140; 87040; 87086; 99284; A9270-GY; G8978-GP-CK; G8979-GP-CI; G8987-GO-CJ; G8988-GO-CI; J0696; J1644; J1650; J1885; J1940; J2060; J2543

== ENCOUNTER 2019-02-09 11:53 | Inpatient (IN) | payer MEDICARE ==
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
--- OUTSIDE RECORDS SUMMARY | 2019-02-09 13:26 | XMS REPORT | Continuity of Care Document ---
:1945 External Reference #:[id number] Author Name Omar Ellison M.D. Address [address] [place] [address] Care Team Providers Name Role Phone Zakia Zurita MD - Internal Medicine Care Team Information Bundle Wrapper [phone] Problems Active Problems Provider Date Type 2 diabetes mellitus Omar Ellison M.D. Onset: 12/08/2018 Social History Type Date Description Comments Sex Unknown ETOH Use Denies alcohol use Tobacco Use Start: Unknown Patient has never smoked Smoking Status Reviewed: 02/05/19 Patient has never smoked Allergies, Adverse Reactions, [...] 125mg Chewtabs Sertraline HCL Unknown 50mg Tablets History Medications Prednisolone Acetate 1 drop right 5ml H40.031 Omar Ellison, 01/17/2019 - 1% eye four times M.D. 02/05/2019 Suspension a day for 4 days Immunizations Description No Information Available Vital Signs Date Vital Result Comment 02/05/2019 1:41pm Intraocular Pressure Right Eye 22 mmHg Intraocular Pressure Left Eye 22 mmHg Cornea Thickness Left Eye 556 m Cornea Thickness Right Eye 546 m Pachymetry adjusted IOP Right Eye -1 Pachymetry adjusted IOP Left Eye 0 12/08/2018 10:20am Intraocular Pressure Right Eye 20 mmHg Intraocular Pressure Left Eye 19 mmHg Results Description No Information Available Procedures Date Code Description Status 02/05/2019 25574 Ophthalmoscopy Subsequent Completed 02/05/2019 33737 Ophthalmic Biometry By Partial Coherence Interferometry Completed W/Intra 02/05/2019 58101 Eye Exam Est Comprehensive Completed 01/24/2019 06371 Iridotomy/Iredectomy By Laser Surgery Completed 01/17/2019 51918 Iridotomy/Iredectomy By Laser Surgery Completed 12/08/2018 59933 Gonioscopy Completed 12/08/2018 06633 Eye Exam New Intermediate Completed Medical Devices Description No Information Available Encounters Description No Information Available Assessments Date Code Description Provider 02/05/2019 H25.13 Age-related nuclear cataract, bilateral Omar Ellison M.D. 02/05/2019 E11.9 Type 2 diabetes mellitus without Omar Ellison M.D. complications 01/24/2019 H40.032 Anatomical narrow angle, left eye Omar Ellison M.D. 01/17/2019 H40.031 Anatomical narrow angle, right eye Omar Ellison M.D. 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 Plan of Treatment 02/05/2019 - Omar Ellison M.D.H25.13 Age-related nuclear cataract, bilateralComments:Risks, benefits and alternatives to cataract extraction and posterior chamber intraocular lens placement explained, understood and accepted including but not limited to: re-operation, infection, retinal detachment, glaucoma, bleeding in the eye, retained lens material, corneal or macular edema , need for glasses, poor vision and other.Follow up:Schedule patient for the next available cataract surgery date.E11.9 Type 2 diabetes mellitus without complications Functional Status Description No Information Available Mental Status Description No Information Available Referrals Description No Information Available
--- OUTSIDE RECORDS SUMMARY | 2019-02-09 13:26 | XMS REPORT | Continuity of Care Document ---
:1945 External Reference #:[id number] Author Name Omar Ellison M.D. Address [address] [place] [address] Care Team Providers Name Role Phone Zakia Zurita MD - Internal Medicine Care Team Information Cash Application Clerk [phone] Problems Active Problems Provider Date Type 2 diabetes mellitus Omar Ellison M.D. Onset: 12/08/2018 Social History Type Date Description Comments Sex Unknown ETOH Use Denies alcohol use Tobacco Use Start: Unknown Patient has never smoked Smoking Status Reviewed: 01/17/19 Patient has never smoked Allergies, Adverse Reactions, Alerts Active Allergies Reaction Severity Comments Date Wellbutrin 12/08/2018 Vicodin 12/08/2018 Metformin 12/08/2018 Heparin 12/08/2018 Medications Active Medications SIG Qnty Indications Ordering Provider Date Prednisolone Acetate 1 drop right 5ml H40.031 Omar Ellison, 01/17/2019 1% eye four times M.D. Suspension a day for 4 days Amlodipine Besylate Unknown 10mg Tablets Aspir-Low 1 [...] 125mg Chewtabs Sertraline HCL Unknown 50mg Tablets Immunizations Description No Information Available Vital Signs Date Vital Result Comment 12/08/2018 10:20am Intraocular Pressure Right Eye 20 mmHg Intraocular Pressure Left Eye 19 mmHg Results Description No Information Available Procedures Date Code Description Status 01/17/2019 13350 Iridotomy/Iredectomy By Laser Surgery Completed 12/08/2018 90386 Gonioscopy Completed 12/08/2018 32321 Eye Exam New Intermediate Completed Medical Devices Description No Information Available Encounters Description No Information Available Assessments Date Code Description Provider 01/17/2019 H40.031 Anatomical narrow angle, right eye Omar Ellison M.D. 01/17/2019 H40.032 Anatomical narrow angle, left eye Omar Ellison M.D. 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 Plan of Treatment Future Appointment(s):02/05/2019 1:45 pm - Omar Ellison M.D. at [facility]/24/2019 11:00 am - Omar Ellison M.D. at [facility]/17/2019 - Omar Ellison M.D.H40.031 Anatomical narrow angle, right eyeNew Medication: Prednisolone Acetate 1 % - 1 drop right eye four times a day for 4 daysH40.032 Anatomical narrow angle, left eyeFollow up:1 wk LI OS Functional Status Description No Information Available Mental Status Description No Information Available Referrals Description No Information Available
--- OUTSIDE RECORDS SUMMARY | 2019-02-09 13:26 | XMS REPORT | Summary of Care ---
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 documented as of this encounter Goals Goal Patient Goal Associated Recent Patient-Stated? Author Type Problems Progress Blood Pressure Blood Pressure 148/82 No Rossy, < 140/90 (01/23/2019 Bri, 11:20 AM EDT) RN Note: This is an individualized treatment (blood pressure) goal for Katconnor Montemayor: Displayed above (on the left) is your goal for blood pressure control. Your most recent blood pressure is also shown above, on the right. You should try to achieve blood pressures that are lower than your goal listed above (on the left). Weight increase vs. 18 mo min CHF 8 (01/23/2019 11:20 AM EDT) No Zakia Zurita MD (lbs) < 5 Note: This is an individualized treatment (congestive heart failure, CHF) goal for Kat Sim: Displayed above (on the right) is how many pounds you are in excess of your lowest weight over the past 18 months. Note that lower numbers are better. Excessive weight gain often indicates fluid reten tion and worsening heart failure. You should contact your doctor immediately if the above number is too high (above your goal, the number on the left). Depression screen (PHQ-9) total score < 5 Depression No Bri Blair RN Note: This is an individualized treatment (depression) goal for Kat Montemayor: Displayed above is your goal for a depression screening (PHQ-9) score that would indicate good control of your depression. Glycohemoglobin A1c < 7.0 Diabetes 9.7 (10/12/2018 4:26 PM No Bri Blair RN EDT) Note: This is an individualized treatment (diabetes control, HgbA1C) goal for Kat Montemayor: Displayed above is your progress towards your HgbA1C goal. Your goal is shown above (on the left); your most recent HgbA1C is shown on the right. Note that lower numbers are better. Weight loss vs. 18 mo Lifestyle 10.6 (01/23/2019 11:20 AM No Naila Blair RN max (lbs) >= 10 EDT) Note: This is an individualized lifestyle goal for Kat Monetmayor: Your body mass index (BMI) is more than 30. You should lose weight. A reasonable starting goal is to lose 10 pounds. Displayed above is how many pounds you have lost thus far towards your 10 pound weight loss goal. Keep a regular sleep schedule Lifestyle No Bri Blair RN Note: This is an individualized lifestyle goal for Kat Montemayor: Please maintain a regular sleep schedule. This may help with some symptoms of depression. Keep immunizations current Lifestyle No Bri Blair RN Note: This is an individualized lifestyle goal for Kat Montemayor: Please be sure to keep up-to-date on recommended immunizations. For example, this would include a yearly influenza vaccine. Immunization status can be seen by looking at the Health Maintenance sections of your [facility], Plan of Care, and any After Visit Summaries. Consume a pj-xcigl-uxob diet Lifestyle No Zakia Zurita MD Note: This is an individualized lifestyle goal for Kat Montemayor: Please do not add additional salt to your food. Additional salt may lead to fluid retention and worsen your congestive heart failure. Take all prescribed medications as Self-management No Bri Blair RN directed Note: This is an individualized self-management goal for Kat Montemayor: Please take all prescribed medications as directed. 1. Do not skip doses. If you cannot afford your medications, talk with your doctor. 2. Use a pill reminder system such as a pill box if needed. Your pharmacist can help you with this. 3. Contact your Pharmacy 5 days before your medication runs out. If you cannot take your medications for any reasons, talk with your doctor. 4. Please bring all of your medication bottles and inhalers (or a list of all your medications/inhalers) with you to every visit. Potential barriers to meeting all of your care plan goals will continue to be addressed on an ongoing basis. Check your weight daily Self-management No Zakia Zurita MD Note: This is an individualized self-management goal for Kat Montemayor: Please check your weight daily. Refer to the accompanying CHF treatment goal and call your doctor immediately for further instructions on how to respond to unexpected weight gain. documented as of this encounter Results Not on filedocumented in this encounter Visit Diagnoses Diagnosis Type 2 diabetes mellitus without complication, unspecified whether superintendent container terminal insulin use (HCC) - Primary Mild depression (HCC) Depressive disorder, not elsewhere classified Need for influenza vaccination Need for prophylactic vaccination and inoculation against influenza Depression, unspecified depression type Essential hypertension Unspecified essential hypertension Hypothyroidism, unspecified type Poor social situation Unspecified psychosocial circumstance Renal insufficiency Unspecified disorder of kidney and ureter C. 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 associated with type 2 diabetes mellitus (HCC) Acute on chronic congestive heart failure, unspecified heart failure type (HCC) Anemia, unspecified type documented in this encounter Insurance Payer Benefit Plan / Subscriber ID Effective Dates Phone Address Type Group EXCELLUS MEDICARE EXCELLUS xxxxxxxxxxxx 2018-[employer] ADVANT[employer] MEDICARE BLUE t PPO ([phone]) Guarantor Name Account Type Relation to Date of Phone Billing Address Patient Kat Montemayor Personal/Famil 1945 patient is y (Home) homeless as of [phone] 01/18 currently (Work) staying in the [employer] [place] [address] documented as of this encounter
--- OUTSIDE RECORDS SUMMARY | 2019-02-09 13:26 | XMS REPORT | Continuity of Care Document ---
:1945 External Reference #:[id number] Author Name Omar Ellison M.D. Address [address] [place] [address] Care Team Providers Name Role Phone Zakia Zurita MD - Internal Medicine Care Team Information Associate Product Integrity Engineer [phone] Problems Active Problems Provider Date Type 2 diabetes mellitus Omar Ellison M.D. Onset: 12/08/2018 Social History Type Date Description Comments Sex Unknown ETOH Use Denies alcohol use Tobacco Use Start: Unknown Patient has never smoked Smoking Status Reviewed: 01/24/19 Patient has never smoked Allergies, Adverse Reactions, [...] Information Available Procedures Date Code Description Status 01/24/2019 65362 Iridotomy/Iredectomy By Laser Surgery Completed 01/17/2019 65719 Iridotomy/Iredectomy By Laser Surgery Completed 12/08/2018 38843 Gonioscopy Completed 12/08/2018 81528 Eye Exam New Intermediate Completed Medical Devices Description No Information Available Encounters Description No Information Available Assessments Date Code Description Provider 01/24/2019 H40.032 Anatomical narrow angle, left eye Omar Ellison M.D. 01/17/2019 H40.031 Anatomical narrow angle, right eye Omar Ellison M.D. 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 Plan of Treatment Future Appointment(s):02/05/2019 1:45 pm - Omar Ellison M.D. at [facility]/24/2019 - Omar Ellison M.D.H40.032 Anatomical narrow angle, left eyeFollow up:1-[address] Naomi Us, preop and DFE Functional Status Description No Information Available Mental Status Description No Information Available Referrals Description No Information Available
--- OUTSIDE RECORDS SUMMARY | 2019-02-09 13:26 | XMS REPORT | Summary of Care ---
:1945 Demographics Address patient is homeless as of 01/18 currently staying in the [facility] [place] [address] Home Phone Work Phone Preferred Language Estonian Marital Status Not or Voodoo Affiliation Unknown Race White Ethnic Group Not or Author Organization [facility] Address [address] [place] [address] Care Team Providers Name Role Phone Zakia Zurita MD Primary Care Provider Bri Blair RN Unavailable Reason for Referral Refer to Department Only (Routine) Status Reason Specialty Diagnoses / Referred By Referred To Procedures Contact Contact Pending Review NEPHROLOGY Diagnoses Renal insufficiency Zakia Zurita MD [address] [place] [address] Reason for Visit Reason Comments Results labs Medication Check not taking some of her medication d/t insurance. Only taking antidepressant and insulin. Encounter Details Date Type Department Care Team Description 02/06/2019 Office Visit [facility] Zakia Zurita MD Anemia, unspecified type (Primary Dx); Medicine [address] [facility] Hypothyroidism, unspecified type; [address] [place] [address] Type 2 diabetes mellitus without complication, unspecified whether long chain beamer insulin use (HCC); [place] [address] Essential hypertension; [phone] Poor social situation; Depression, unspecified depression type; Renal insufficiency; Urinary tract infection without hematuria, site unspecified; Lipid disorder Allergies Active Allergy Reactions Severity Noted Date Comments Heparin Dermatologic Reaction 03/11/2017 Red blotches on skin. Metformin GI Reaction 11/28/2014 diarrhea Hydrocodone-Acetaminop Hives 02/07/2009 hen Bupropion Cardiac Reaction 11/28/2014 Rapid heart documented as of this encounter (statuses as of 02/06/2019) Medications Medication Sig Dispensed Refills Start Date End Date Status Lancets Does not by Does not apply 100 Each 5 11/28/2014 Active apply Misc route. Brand:Freestyle Lite Test BID Dx 250.02 Insulin 1 Each by Does not 200 Each 5 09/02/2017 Active Syringe-Needle U-100 apply route TWICE 31G X 3/8" 0.5 ML DAILY. Dx 250.02 Does not apply Misc [place] & Syringes Inject 1 Each 100 Syringe [...] inhalation DAILY. Inhalation AEROSOL POWDER, BREATH ACTIVATED [place] & Syringes by Does not apply 100 Each 0 06/14/2018 Active Does not apply Misc route EVERY BEDTIME. E11.65 last OV 05/12/18 Insulin Pen Needle 1 Device by Does 100 Each 06/14/2018 Active (BD PEN NEEDLE EDSON not [...] prefer E08-42 mellitus without complication, unspecified whether long chain beamer insulin use (HCC) Glucose Blood In 1 Strip by In 100 Each 11/15/2018 Active Vitro Vitro route THREE StripIndications: TIMES DAILY. insul Type 2 diabetes depend E08.42, mellitus without brand insur complication, preferred unspecified whether long chain beamer insulin use (HCC) Lancets Does not by Does not apply 100 Each 11/15/2018 Active apply route THREE TIMES MiscIndications: DAILY. Insulin Type 2 diabetes dep. Brand: mellitus without insurance complication, preferred, E08.42 unspecified whether long chain beamer insulin use (HCC) LANTUS 100 UNIT/ML INJECT 65 UNITS 30 mL 5 12/04/2018 Active Subcutaneous UNDER THE SKIN AT [...] as of this encounter (statuses as of 02/06/2019) Active Problems Problem Noted Date Mild depression 09/07/2018 Essential hypertension 09/07/2018 Acute on chronic congestive heart failure 08/18/2018 Pulmonary embolism 03/11/2017 Overview: Provoked pulmonary embolism 2016 Should not be on alf anticoagulation Severe nonproliferative diabetic retinopathy with macular [...] lymph node T1 N0M0 With radiation at [facility] [place] - follows Dr Jaeger / Dano - armidex stopped after one month 07/14 - secondary to arthritis CA. 27-29 + 62 documented as of this encounter (statuses as of 02/06/2019) Resolved Problems Problem Noted Date Resolved Date Type 2 diabetes mellitus without complication 03/20/2015 11/02/2016 HTN (hypertension) 03/11/2009 Overview: Replaced inactive diagnosis documented as of this encounter (statuses as of 02/06/2019) Immunizations Name Administration Dates Next Due Influenza [...] Sign Reading Time Taken Comments Blood Pressure 168/77 02/06/2019 10:45 AM EDT Pulse 100 02/06/2019 10:41 AM EDT Temperature - - Respiratory Rate - - Oxygen Saturation 99% 02/06/2019 10:41 AM EDT Inhaled Oxygen Concentration - - Weight 92.5 kg (204 lb) 02/06/2019 10:41 AM EDT Height 167.6 cm (5' 6") 02/06/2019 10:41 AM EDT Body Mass Index 32.93 02/06/2019 10:41 AM EDT documented in this encounter Patient Instructions Patient InstructionsZakia Zurita MD - 02/06/2019 10:20 AM EDTPlan Get back on blood pressure / thyroid / diuretics Constipation: Milder: High Fiber diet (all bran, prunes, fruits and vetetables) Good amount of water daily Bulking agent ( fibercon, metamucil, citrucel- all dilfferent) Stool softener: Colace/ pericolace Stronger: Biscodyl - ducolax - pills or suppository MOM Senna tabs; leaves (to make tea ([employer] market has) Miralax (otc) Magnesium citrate Enemas- Fleets enemas Tap water Probiotics- Align/ colonhealth documented in this encounter Progress Notes Zakia Zurita MD - 02/06/2019 10:20 AM EDT NAME:Kat Montemayor 1945: 1945 ENC Date: 02/06/2019 CC: Chief Complaint Patient presents with Results labs Medication Check not taking some of her medication d/t insurance. Only taking antidepressant and insulin. Kat Montemayor is a 73-y.o. female Has been homeless - still living at [facility] - 1. Stomach upset - Today - working with [employer] / [email or web address] - normally has constipation - 2. Pedal edema - present- Has not been using diuretic - Has not been able to afford - 3. Was hospitalized previously for anemia / uti 4. Using less lantus - 60 units total ( divided dose) - cks blood sugar twice daily 5. Insomnia - worries at night - - 6. Creatinine elevated- Has been increasing gradually since 2014 - No work up Ct scan abdomwn shows bilaterally normal size of kidney and no abnormality Review of blood work shows HgA1C is better Creatinine/ hct / TSH / lipids abnormal - not getting medication She needs to treat these prolbems Current Outpatient Medications Medication Sig amLodipine (NORVASC) [...] DAILY. To match her glucometer on file E11. last OV 05/12/18 Glucose Blood In Vitro Strip 1 Strip by In Vitro route THREE TIMES DAILY. E11, insulin depend Glucose Blood In Vitro Strip 1 Strip by In Vitro route THREE TIMES DAILY. insul depend E08.42, brand insur preferred Insulin Pen Needle (BD PEN NEEDLE EDSON U/F) 32G X 4 MM Does not [...] Oral Tab Take 3 mg by mouth. [place] & Syringes Does not apply Misc Inject 1 Each beneath the skin TWICE DAILY. 1/2cc 30gX5/8 Dx Z79.4 [place] & Syringes Does not apply Misc by Does not apply route EVERY BEDTIME. lastOV 05/12/18 Omeprazole delayed rel cap 20 [...] Problem List Diagnosis Date Noted Mild depression ([facility]) 09/07/2018 Essential hypertension 09/07/2018 Acute on chronic congestive heart failure ([facility]) 08/18/2018 Pulmonary embolism ([facility]) 03/11/2017 Provoked pulmonary embolism 2016 Should not be on alf anticoagulation Severe nonproliferative diabetic retinopathy with macular edema associated with type 2 diabetes mellitus ([facility]) 11/02/2016 Pancreatic cyst 01/27/2016 Incidental finding 1.[address] scan 01/05 - repeat in 6-9 months for stability Acquired hypothyroidism 03/20/2015 BMI 38.0-38.9,adult 11/20/2010 Breast cancer ([facility]) 2009 R breast lumpectomy + sentinel lymph node T1 N0M0 With radiation at [facility] [place]- follows Dr Jaeger/ Dano - armidex stopped after one month 07/14 - secondary to arthritis CA. 27-29 + 62 DM (diabetes mellitus) ([facility]) Care plan done TCM Statement. [...] standard drinks Drug use: No OBJECTIVE: BP 168/77 | Pulse 100 | Ht 5' 6" (1.676 m) | Wt 204 lb (92.5 kg) | SpO2 99% | BMI 32.93 kg/m . Heent neg Neck no JVD, thyromegaly or bruit Lungs Clear CV rrr Tachy Abd soft, Ext 1-2+ edema; no lesions; Neuro: intellect intact ; motor with walker- A/P ICD-9-CM ICD-10-CM 1. Anemia, unspecified type 285.9 D64.9 2. Hypothyroidism, unspecified type No on medication 244.9 E03.9 THYROID STIMULATING HORMONE 3. Type 2 diabetes mellitus without complication, unspecified whether long chain beamer insulin use (HCC) 250.00 E11.9 MICROALBUMIN, RANDOM URINE W/ CREATININE GLYCOHEMOGLOBIN A1C COMPREHENSIVE METABOLIC PANEL 4. Essential hypertension 401.9 I10 5. Poor social situation V62.9 Z65.9 6. Depression, unspecified depression type 311 F32.9 7. Renal insufficiency- Longstanding- and getting worse- 593.9 N28.9 8. Urinary tract infection without hematuria, site unspecified 599.0 N39.0 9. Lipid disorder get back on statin 272.9 E78.9 LDL, DIRECT Anemia secondary to renal failure ? Need to get back on basic medication - disucss with nurse manager house - Patient Instructions Plan Get back on blood pressure / thyroid / diuretics Constipation: Milder: High Fiber diet (all bran, prunes, fruits and vetetables) Good amount of water daily Bulking agent ( fibercon, metamucil, citrucel- all dilfferent) Stool softener: Colace/ pericolace Stronger: Biscodyl - ducolax - pills or suppository MOM Senna tabs; leaves (to make tea ([employer] market has) Miralax (otc) Magnesium citrate Enemas- Fleets enemas Tap water Probiotics- Align/ colonhealth AUTHOR: Zakia Zurita MD 11:42 02/06/2019 documented in this encounter Plan of Treatment Date Type Specialty Care Team Description 03/01/2019 Lab Internal Medicine 03/21/2019 Office Visit Internal Medicine Zakia Zurita MD [address] [place] [address] [phone] Name Type Priority Associated Diagnoses Order Schedule MICROALBUMIN, RANDOM URINE Lab Routine Type 2 diabetes 1 Occurrences starting W/ CREATININE mellitus without 02/06/2019 until complication, 08/05/2019 unspecified whether long chain beamer insulin use (HCC) GLYCOHEMOGLOBIN A1C Lab Routine Type 2 diabetes Expected: 02/06/2019 mellitus without (Approximate), complication, Expires: 08/05/2019 unspecified whether alf insulin use (HCC) COMPREHENSIVE METABOLIC Lab Routine Type 2 diabetes Expected: 02/06/2019 PANEL mellitus without (Approximate), complication, Expires: 08/05/2019 unspecified whether long chain beamer insulin use (HCC) LDL, DIRECT Lab Routine Lipid disorder Expected: 02/06/2019 (Approximate), Expires: 08/05/2019 THYROID STIMULATING HORMONE Lab Routine Hypothyroidism, Expected: 2018 unspecified type (Approximate), Expires: 08/05/2019 Name Type Priority Associated Diagnoses Order Schedule REFER TO NEPHROLOGY Referral Routine Renal insufficiency Expected: 2018, Expires: 02/07/2020 Health Maintenance Due Date Last Done Comments ZOSTER IMMUNIZATION SERIES 12/01/1993 (1 of 2) MEDICARE ANNUAL WELLNESS 09/14/2014 09/14/2013, 11/26/2011 VISIT MAMMOGRAM (SCREENING) 02/25/2016 02/24/2015, 08/06/2013, 01/03/2012, Additional history exists COLONOSCOPY SCREENING 12/22/2016 12/23/2011, 12/16/2011 (Previously completed), 10/28/2010 (Postponed) Diabetic Eye Exam 11/02/2017 11/02/2016, 11/02/2016, 11/02/2016 FALL RISK ASSESSMENT 05/12/2019 05/12/2018, 05/12/2018 FOOT EXAM 05/12/2019 05/12/2018, 05/12/2018, 03/13/2015, Additional history exists HEMOGLOBIN A1C 08/04/2019 02/03/2019, 12/21/2018, 10/12/2018, Additional history exists DEPRESSION SCREENING 10/13/2019 10/12/2018 LIPID DISORDER SCREENING 02/04/2020 02/03/2019, 10/12/2018, 09/14/2018, Additional history exists OSTEOPOROSIS SCREENING 03/23/2020 03/23/2010, 03/23/2010 PNEUMOCOCCAL 65+YRS Completed 02/25/2016, 01/12/2010 INFLUENZA VACCINE Completed 01/23/2019, 04/30/2018, 02/25/2016, Additional history exists HPV IMMUNIZATION SERIES Aged Out No longer eligible based on patient's age to complete this topic MENINGOCOCCAL VACCINE IMM Aged Out No longer eligible based on patient's age to complete this topic documented as of this encounter Goals Goal Patient Goal Associated Recent Patient-Stated? Author Type Problems Progress Blood Pressure Blood Pressure 168/77 No Rossy, < 140/90 (02/06/2019 Bri, 10:45 AM EDT) RN Note: This is an individualized treatment (blood pressure) goal for Kat Montemayor: Displayed above (on the left) is your goal for blood pressure control. Your most recent blood pressure is also shown above, on the right. You should try to achieve blood pressures that are lower than your goal listed above (on the left). Weight increase vs. 18 mo min CHF 7 (02/06/2019 10:41 AM EDT) No Zakia Zurita MD (lbs) < 5 Note: This is an individualized treatment (congestive heart failure, CHF) goal for Kat Montemayor: Displayed above (on the right) is how [...] score < 5 Depression No Bri Blair , SUZY Note: This is an individualized treatment (depression) goal for Kat Montemayor: Displayed above is your goal for a depression screening (PHQ-9) score that would indicate good control of your depression. Glycohemoglobin A1c < 7.0 Diabetes 6.9 (02/03/2019 11:10 AM No Bri Blair, SUZY EDT) Note: This is an individualized treatment (diabetes control, HgbA1C) goal for Kat Montemayor: Displayed above is your progress towards your HgbA1C goal. Your goal is shown above (on the left); your most recent HgbA1C is shown on the right. Note that lower numbers are better. Weight loss vs. 18 mo Lifestyle 11.6 (02/06/2019 10:41 AM No Naila Blair RN max (lbs) >= 10 EDT) Note: This is an individualized lifestyle goal for Kat Montemayor: Your body mass index (BMI) is more [...] symptoms of depression. Keep immunizations current Lifestyle Bri Horvath RN Note: This is an individualized lifestyle goal for Kat Montemayor: Please be sure to keep up-to-date on recommended immunizations. For example, this would include a yearly influenza vaccine. Immunization status can be seen by looking at the Health Maintenance sections of your [facility], Plan of Care, and any After Visit Summaries. Consume a ho-lxszt-lrcu diet Lifestyle No Zakia Zurita MD Note: This is an individualized lifestyle goal for Kat Montemayor: Please do not add additional salt to your food. Additional salt may lead to fluid retention and worsen your congestive heart failure. Take all prescribed medications as Self-management Bri Horvath RN directed Note: This is an individualized [...] basis. Check your weight daily Self-management No [place], Zakia, MD Note: This is an individualized self-management goal for Kat Montemayor: Please check your weight daily. Refer to the accompanying CHF treatment goal and call your doctor immediately for further instructions on how to respond to unexpected weight gain. documented as of this encounter Results Not on filedocumented in this encounter Visit Diagnoses Diagnosis Anemia, unspecified type - Primary Hypothyroidism, unspecified type Type 2 diabetes mellitus without complication, unspecified whether long chain beamer insulin use (HCC) Essential hypertension Unspecified essential hypertension Poor social situation Unspecified psychosocial circumstance Depression, unspecified depression type Renal insufficiency Unspecified disorder of kidney and ureter Urinary tract infection without hematuria, site unspecified Lipid disorder Unspecified disorder of lipoid metabolism documented in this encounter Insurance Payer Benefit Plan / Subscriber ID Effective Dates Phone Address Type Group EXCELLUS MEDICARE EXCELLUS xxxxxxxxxxxx 2018-[facility] [place] Video Passports ADVANTAGE MEDICARE BLUE t PPO ([phone]) Guarantor Name Account Type Relation to Date of Phone Billing Address Patient Kat Montemayor Personal/Famil 1945 patient is y (Home) homeless as of [phone] 01/18 currently (Work) staying in the [employer] [place] [address] documented as of this encounter
[2019-02-09] MEDS ORDERED: Acetaminophen TAB* 325 MG PO ONE (14:34)
[2019-02-09 15:04] LABS: ABS Basophils 0.1 10^3/ul (0-0.2); ABS Eosinophils 0.3 10^3/ul (0-0.6); ABS Lymphocytes 1.9 10^3/ul (1.0-4.8); ABS Monocytes 0.5 10^3/ul (0-0.8); ABS Neutrophils 7.5 10^3/ul (1.5-7.7); Eosinophil % 3.2 %; Hematocrit 30 % (35-47); Lymphocyte % 18.4 %; Mean Corpuscular HGB Conc 34 g/dL (31-36); Mean Corpuscular Hemoglobin 28 pg (27-31); Mean Corpuscular Volume 83 fL (80-97); Mean Platelet Volume 6.8 fL (7.4-10.4); Platelet Count 371 10^3/uL (150-450); Red Blood Count 3.55 10^6 /uL (3.70-4.87); Red Cell Distribution Width 16 % (10-15); White Blood Count 10.2 10^3/uL (3.5-10.8)
[2019-02-09 15:21] LABS: Albumin 4.1 g/dL (3.2-5.2); Albumin/Globulin Ratio 1.2 (1-3); BUN/Creatinine Ratio 12.8 (8-20); Calcium 9.1 mg/dL (8.6-10.3); EGFR African American 21.1 (>60); EGFR Non-African American 17.5 (>60); Globulin 3.3 g/dL (2-4); Total Bilirubin 0.3 mg/dL (0.2-1.0); Total Protein 7.4 g/dL (6.4-8.9)
[2019-02-09] MEDS ORDERED: Ondansetron INJ* 2 MG/ML VIAL IV PRN (15:27)
[2019-02-09] MEDS: Enoxaparin(*) 30 MG/0.3 ML SYR SUBCUT SCH (18:20)
--- NOTE | 2019-02-09 19:28 | HP ---
CC: Dr. Zakia Zurita * ADMISSION HISTORY AND PHYSICAL: DATE OF ADMISSION: 02/09/19 PRIMARY CARE PROVIDER: Dr. Zakia Zurita. MY ATTENDING WHILE IN THE HOSPITAL: Dr. Kiana Quintero.* (DICTATED BY KEVIN CEDENO) CHIEF COMPLAINT: Fall. HISTORY OF PRESENT ILLNESS: Ms. Montemayor is a 73-year-old female with past medical history significant for diabetes mellitus type 2, PTSD, recurrent C. diff, chronic pain and numerous admissions to this institution over the past several years, who presents to the emergency department after she was sent in by the hotel where she was previously staying for a fall where they felt that she was unable to care for herself. She, per collateral resources, has been having difficult time cleaning herself up and there are feces all over her room as well as an excess of possessions, making it difficult for her to walk around safely. The patient states that the fall happened approximately 2 days ago that she was just reaching for for something and slipped off the bed and could not grab onto anything and had a difficult time having the staff help her up. The patient has been feeling well. The patient denies urinary frequency, dysuria , chest pain, shortness of breath, fevers, chills, nausea, vomiting. The patient has 1 soft bowel movement a day she states and has been trying to find a balance between her [id number] stool softeners and antidiarrheal agents. She feels she has reached a good balance at this point. The patient states her blood sugars vary between 100 and low 200s and her primary care provider is very pleased with how she is doing. The patient has not passed out recently. The patient has no other falls. The patient states she is active in the community. The patient in the emergency department had a hip/pelvis x-ray, which was unremarkable. No other laboratory data abnormalities. The hotel where the patient was living refused to take her back and the [facility] of [facility] was unable to take her at a homeless retirement and they have very strong concern about her ability to care for herself in the community. Due to inability to having a safe discharge plan for the patient, we were asked to evaluate the patient for admission to the hospital. PAST MEDICAL HISTORY: Diabetes mellitus type 2; chronic kidney disease; history of pulmonary embolism; hypertension; subdural hematoma; breast cancer; depression; PTSD; recurrent gastritis; GERD; chronic pain; recurrent C. diff, currently in remission. PAST SURGICAL HISTORY: Appendectomy, cholecystectomy, tonsillectomy. MEDICATIONS: 1. Sertraline 50 mg p.o. daily. 2. Venlafaxine 150 mg p.o. daily. 3. Amlodipine 10 mg p.o. daily. 4. Lipitor 20 mg p.o. daily. 5. Simethicone 125 mg p.o. q.i.d. as needed. 6. Omeprazole 20 mg p.o. daily. 7. Aspirin 81 mg p.o. daily. 8. Melatonin 3 mg p.o. at bedtime as needed. 9. Potassium chloride 10 mEq p.o. daily. 10. Levothyroxine 200 mcg p.o. daily. 11. Losartan 25 mg p.o. daily. 12. Percocet 5/325 one tab p.o. q.6 hours as needed. 13. Atenolol 100 mg p.o. daily. 14. Insulin glargine 65 units subcutaneous at bedtime. 15. Furosemide 20 mg p.o. daily. 16. Fluticasone 1 spray both nares daily. ALLERGIES: BUPROPION, HEPARIN, HYDROCODONE, METFORMIN. FAMILY HISTORY: Both the patient's parents of COPD after heavy smoking. SOCIAL HISTORY: The patient quit smoking in 1983. The patient denies illicit drug use or alcohol abuse. 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 Zakia Zurita. REVIEW OF SYSTEMS: A 10-point review of systems was reviewed and is negative except as above in the HPI. PHYSICAL EXAMINATION GENERAL: The patient is a 73-year-old female, who appears stated age and sitting comfortably in bed, in no acute distress. VITAL SIGNS: Temperature 97.8, pulse rate 115, respiratory rate 20, oxygen saturation 97% on room air, blood pressure 180/101. HEENT: Head: Normocephalic, atraumatic. Sclerae anicteric. No conjunctival injection. Nasal mucosa moist. Oral mucosa moist. No pharyngeal erythema, discharge, or exudate. NECK: Supple, nontender. No lymphadenopathy. No carotid bruits auscultated. No JVD. RESPIRATORY: Clear to auscultation bilaterally. No wheezes, rales, or rhonchi. Good air exchange bilaterally. CARDIAC: Regular rate and rhythm. No clicks, murmurs, gallops, or rubs. Pulses are 2+ in the bilateral dorsalis pedis, posterior tibialis, and radial areas. ABDOMEN: Soft, nontender, nondistended. Bowel sounds present and normoactive in all 4 quadrants. No hepatosplenomegaly. No abdominal bruits auscultated. No hepatojugular reflux. GENITOURINARY: No suprapubic or CVA tenderness. NEURO: Cranial nerves II through XII intact. No focal deficits. Alert and oriented x3. PSYCHIATRIC: Pleasant and cooperative. SKIN: Clean, dry, and intact. No rash. DIAGNOSTIC STUDIES/LAB DATA: At this time, white blood cell count 10.2, hemoglobin 10.0, platelet count 371. Studies: Hip/pelvis x-ray read as no fracture of the left hip or pelvis is noted. ASSESSMENT AND PLAN: Impression: Ms. Montemayor is a 73-year-old female with past medical history significant for diabetes, posttraumatic stress disorder, chronic kidney disease, high blood pressure and recurrent Clostridium difficile , who presents to the emergency department after she was forced to come in by the hotel where she was living for a fall where she sustained no injury. The patient does not have a safe discharge plan as there is no safe living arrangement for her in the community. The patient will be admitted to the hospital custodially for social work consult and to attempt to find an adequate housing arrangement for her. 1. Inability to care for self. Per reports from the [facility], the patient is living in [place] and is unable to care for herself. The patient denies this strongly. The patient does not look disheveled at the time of this interview and appears to be forthright knowing consistencies in her story. Compared to previous exam, the patient appears much more healthy; however, given that there is no safe discharge plan, the patient will be admitted to the hospital for social work consult and discharge planning to an appropriate discharge location. 2. Diabetes mellitus type 2. The patient states her blood sugars have been under very good control. She checks them twice daily at home. This will be continued in the hospital. The patient's Lantus dose will be continued at its current rate. The patient states she has been losing weight. The patient should follow up with primary care provider for this. 3. Hypertension. Continue the patient's home regimen. The patient was hypertensive when she came into the emergency department. This will be trended , though no changes made to her medication regimen at this time. 4. Chronic kidney disease. Recheck a BMP. 5. Recurrent Clostridium difficile. The patient is not having signs of recurrent Clostridium difficile. We will cancel C. diff test that is currently ordered as there is a high probability it will be positive. 6. History of pulmonary embolism. Lovenox at DVT prophylaxis dose. 7. Disposition: The patient is admitted shelter to the hospital. 8. FEN: The patient will have a consistent carbohydrate diet. There is no indication for fluids at this time. TIME SPENT: Approximately 60 minutes was spent on the admission of this patient , 30 of which was spent [id number] with the patient obtaining history and physical and discussing treatment plan. This plan was discussed with my attending, Dr. Kiana Quintero, and she is in agreement. KEVIN CEDENO [id number]/CPS #: [id number] AZAEL
[2019-02-09] MEDS ORDERED: Insulin GLARGINE(*) 1 UNITS UNIT SUBCUT SCH (21:00)
[2019-02-09] MEDS: Melatonin 3 MG TAB PO PRN (23:51)
[2019-02-10 03:43] LABS: Urine Appearance Cloudy; Urine Bacteria Absent (Absent); Urine Bilirubin Negative (Negative); Urine Blood Negative (Negative); Urine Color Yellow; Urine Glucose 2+(150 mg/dL) (Negative); Urine Ketones Negative (Negative); Urine Nitrite Negative (Negative); Urine Protein 3+(>=500 mg/dL) (Negative); Urine Red Blood Cell 1+(3-5/hpf) (Absent); Urine Specific Gravity 1.013 (1.010-1.030); Urine Squamous Epithelial Cell Present (Absent); Urine Urobilinogen Negative (Negative); Urine White Blood Cell 2+(11-20/hpf) (Absent)
[2019-02-10] MEDS: Sertraline* 50 MG TAB PO SCH (03:43)
[2019-02-10] MEDS: Venlafaxine EXT RELEASE CAP* 75 MG PO SCH (03:43)
[2019-02-10] MEDS: oxyCODONE/Acetamin 5/325 MG* TAB PO PRN (03:43)
[2019-02-10] MEDS: Levothyroxine TAB* 100 MCG TAB PO SCH (05:14)
[2019-02-10] MEDS: Docusate CAP* 100 MG PO SCH (09:32)
[2019-02-10] MEDS: Pantoprazole TAB * 40 MG TAB PO SCH (09:32)
[2019-02-10] MEDS: Atenolol TAB* 50 MG PO SCH (09:32)
[2019-02-10] MEDS: Polyethylene Glycol 3350* 17 GM PACKET PO SCH (09:32)
[2019-02-10] MEDS: amLODIPine TAB* 5 MG PO SCH (09:33)
[2019-02-10] MEDS: Potassium Chlor TAB* 10 MEQ TAB.ER PO SCH (09:33)
[2019-02-10] MEDS: Aspirin EC TAB* 81 MG TAB.EC PO SCH (09:33)
[2019-02-10] MEDS: Atorvastatin* 20 MG TAB PO SCH (09:34)
[2019-02-10] MEDS: Fluticasone NASAL SPRAY 50MCG* 16 gm SPRAY BTL BOTH NARES SCH (09:34)
[2019-02-10] MEDS: Losartan TAB* 25 MG PO SCH (09:34)
[2019-02-10] MEDS: Furosemide TAB* 20 MG PO SCH (09:34)
[2019-02-10] MEDS: Enoxaparin(*) 30 MG/0.3 ML SYR SUBCUT SCH (16:14)
[2019-02-10] MEDS: Insulin GLARGINE(*) 1 UNITS UNIT SUBCUT SCH (20:23)
[2019-02-10] MEDS: Melatonin 3 MG TAB PO PRN (23:53)
[2019-02-11] MEDS: Levothyroxine TAB* 100 MCG TAB PO SCH (06:17)
[2019-02-11] MEDS: Polyethylene Glycol 3350* 17 GM PACKET PO SCH (08:28)
[2019-02-11] MEDS: Fluticasone NASAL SPRAY 50MCG* 16 gm SPRAY BTL BOTH NARES SCH (08:28)
[2019-02-11] MEDS: Docusate CAP* 100 MG PO SCH (08:29)
[2019-02-11] MEDS: amLODIPine TAB* 5 MG PO SCH (08:29)
[2019-02-11] MEDS: Aspirin EC TAB* 81 MG TAB.EC PO SCH (08:30)
[2019-02-11] MEDS: Atorvastatin* 20 MG TAB PO SCH (08:30)
[2019-02-11] MEDS: Venlafaxine EXT RELEASE CAP* 75 MG PO SCH (08:30)
[2019-02-11] MEDS: Pantoprazole TAB * 40 MG TAB PO SCH (08:30)
[2019-02-11] MEDS: Sertraline* 50 MG TAB PO SCH (08:30)
[2019-02-11] MEDS: Furosemide TAB* 20 MG PO SCH (08:30)
[2019-02-11] MEDS: Potassium Chlor TAB* 10 MEQ TAB.ER PO SCH (08:30)
[2019-02-11] MEDS: Atenolol TAB* 50 MG PO SCH (08:30)
[2019-02-11] MEDS: Losartan TAB* 25 MG PO SCH (08:30)
[2019-02-11] MEDS: Enoxaparin(*) 30 MG/0.3 ML SYR SUBCUT SCH (15:55)
[2019-02-11] MEDS: Insulin GLARGINE(*) 1 UNITS UNIT SUBCUT SCH (20:56)
[2019-02-12] MEDS: Melatonin 3 MG TAB PO PRN ×2 (00:38→21:10)
[2019-02-12] MEDS: Fluticasone NASAL SPRAY 50MCG* 16 gm SPRAY BTL BOTH NARES SCH ×3 (00:38→21:00)
[2019-02-12] MEDS: Acetaminophen TAB* 325 MG PO PRN ×2 (00:41→21:10)
[2019-02-12] MEDS: Levothyroxine TAB* 100 MCG TAB PO SCH (06:05)
[2019-02-12] MEDS: Docusate CAP* 100 MG PO SCH (08:07)
[2019-02-12] MEDS: Aspirin EC TAB* 81 MG TAB.EC PO SCH (08:07)
[2019-02-12] MEDS: Venlafaxine EXT RELEASE CAP* 75 MG PO SCH (08:07)
[2019-02-12] MEDS: Polyethylene Glycol 3350* 17 GM PACKET PO SCH (08:07)
[2019-02-12] MEDS: Atenolol TAB* 50 MG PO SCH (08:07)
[2019-02-12] MEDS: Pantoprazole TAB * 40 MG TAB PO SCH (08:07)
[2019-02-12] MEDS: Potassium Chlor TAB* 10 MEQ TAB.ER PO SCH (08:08)
[2019-02-12] MEDS: Sertraline* 50 MG TAB PO SCH (08:08)
[2019-02-12] MEDS: Furosemide TAB* 20 MG PO SCH (08:08)
[2019-02-12] MEDS: amLODIPine TAB* 5 MG PO SCH (08:08)
[2019-02-12] MEDS: Atorvastatin* 20 MG TAB PO SCH (08:08)
[2019-02-12] MEDS: Losartan TAB* 25 MG PO SCH (08:08)
[2019-02-12] MEDS: Enoxaparin(*) 30 MG/0.3 ML SYR SUBCUT SCH (15:59)
[2019-02-12] MEDS: Insulin GLARGINE(*) 1 UNITS UNIT SUBCUT SCH (21:00)
[2019-02-13] MEDS: Levothyroxine TAB* 100 MCG TAB PO SCH (05:55)
[2019-02-13] MEDS: Furosemide TAB* 20 MG PO SCH (09:14)
[2019-02-13] MEDS: Docusate CAP* 100 MG PO SCH (09:14)
[2019-02-13] MEDS: Polyethylene Glycol 3350* 17 GM PACKET PO SCH (09:14)
[2019-02-13] MEDS: Sertraline* 50 MG TAB PO SCH (09:14)
[2019-02-13] MEDS: Venlafaxine EXT RELEASE CAP* 75 MG PO SCH (09:14)
[2019-02-13] MEDS: Losartan TAB* 25 MG PO SCH (09:14)
[2019-02-13] MEDS: Fluticasone NASAL SPRAY 50MCG* 16 gm SPRAY BTL BOTH NARES SCH ×2 (09:14→20:18)
[2019-02-13] MEDS: Aspirin EC TAB* 81 MG TAB.EC PO SCH (09:15)
[2019-02-13] MEDS: Pantoprazole TAB * 40 MG TAB PO SCH (09:15)
[2019-02-13] MEDS: amLODIPine TAB* 5 MG PO SCH (09:15)
[2019-02-13] MEDS: Potassium Chlor TAB* 10 MEQ TAB.ER PO SCH (09:15)
[2019-02-13] MEDS: Atenolol TAB* 50 MG PO SCH (09:15)
[2019-02-13] MEDS: Atorvastatin* 20 MG TAB PO SCH (09:15)
[2019-02-13] MEDS: Enoxaparin(*) 30 MG/0.3 ML SYR SUBCUT SCH (16:43)
[2019-02-13] MEDS: Acetaminophen TAB* 325 MG PO PRN (20:17)
[2019-02-13] MEDS: Melatonin 3 MG TAB PO PRN (20:17)
[2019-02-13] MEDS: Insulin GLARGINE(*) 1 UNITS UNIT SUBCUT SCH (20:18)
[2019-02-13] MEDS: Dextran 70/Hypromellose Tears Eye Drops 15 ml BTL (for Artificials Tears) BOTH EYES PRN (22:56)
[2019-02-13] MEDS: Simethicone TAB* 80 MG TAB.CHEW PO PRN (22:57)
[2019-02-14] MEDS: Acetaminophen TAB* 325 MG PO PRN (01:57)
[2019-02-14] MEDS: Levothyroxine TAB* 100 MCG TAB PO SCH (05:24)
[2019-02-14] MEDS: Venlafaxine EXT RELEASE CAP* 75 MG PO SCH (09:53)
[2019-02-14] MEDS: Furosemide TAB* 20 MG PO SCH (09:53)
[2019-02-14] MEDS: Aspirin EC TAB* 81 MG TAB.EC PO SCH (09:54)
[2019-02-14] MEDS: Docusate CAP* 100 MG PO SCH (09:54)
[2019-02-14] MEDS: Atenolol TAB* 50 MG PO SCH (09:55)
[2019-02-14] MEDS: Potassium Chlor TAB* 10 MEQ TAB.ER PO SCH (09:56)
[2019-02-14] MEDS: amLODIPine TAB* 5 MG PO SCH (09:56)
[2019-02-14] MEDS: Atorvastatin* 20 MG TAB PO SCH (09:57)
[2019-02-14] MEDS: Losartan TAB* 25 MG PO SCH (09:57)
[2019-02-14] MEDS: Pantoprazole TAB * 40 MG TAB PO SCH (09:58)
[2019-02-14] MEDS: Sertraline* 50 MG TAB PO SCH (09:58)
[2019-02-14] MEDS: Fluticasone NASAL SPRAY 50MCG* 16 gm SPRAY BTL BOTH NARES SCH ×2 (10:00→22:43)
[2019-02-14] MEDS: Polyethylene Glycol 3350* 17 GM PACKET PO SCH (10:01)
[2019-02-14] MEDS: Enoxaparin(*) 30 MG/0.3 ML SYR SUBCUT SCH (15:14)
[2019-02-14] MEDS: Melatonin 3 MG TAB PO PRN (19:57)
[2019-02-14] MEDS: Benzocaine/Menthol LOZ* 1 LOZENGE MT PRN (19:57)
[2019-02-14] MEDS: oxyCODONE/Acetamin 5/325 MG* TAB PO PRN (19:57)
[2019-02-14] MEDS: Simethicone TAB* 80 MG TAB.CHEW PO PRN (19:58)
[2019-02-14] MEDS: Insulin GLARGINE(*) 1 UNITS UNIT SUBCUT SCH (19:58)
[2019-02-14] MEDS: Dextran 70/Hypromellose Tears Eye Drops 15 ml BTL (for Artificials Tears) BOTH EYES PRN (22:43)
[2019-02-15] MEDS: Acetaminophen TAB* 325 MG PO PRN ×4 (02:29→23:15)
[2019-02-15] MEDS: oxyCODONE/Acetamin 5/325 MG* TAB PO PRN ×2 (02:29→20:51)
[2019-02-15] MEDS: Levothyroxine TAB* 100 MCG TAB PO SCH (07:11)
[2019-02-15] MEDS: Benzocaine/Menthol LOZ* 1 LOZENGE MT PRN (07:11)
[2019-02-15] MEDS: Polyethylene Glycol 3350* 17 GM PACKET PO SCH (08:45)
[2019-02-15] MEDS: Fluticasone NASAL SPRAY 50MCG* 16 gm SPRAY BTL BOTH NARES SCH ×2 (08:45→20:52)
[2019-02-15] MEDS: Atenolol TAB* 50 MG PO SCH (08:46)
[2019-02-15] MEDS: Docusate CAP* 100 MG PO SCH (08:47)
[2019-02-15] MEDS: Venlafaxine EXT RELEASE CAP* 75 MG PO SCH (08:47)
[2019-02-15] MEDS: Potassium Chlor TAB* 10 MEQ TAB.ER PO SCH (08:48)
[2019-02-15] MEDS: amLODIPine TAB* 5 MG PO SCH (08:48)
[2019-02-15] MEDS: Atorvastatin* 20 MG TAB PO SCH (08:48)
[2019-02-15] MEDS: Losartan TAB* 25 MG PO SCH (08:48)
[2019-02-15] MEDS: Sertraline* 50 MG TAB PO SCH (08:48)
[2019-02-15] MEDS: Aspirin EC TAB* 81 MG TAB.EC PO SCH (08:49)
[2019-02-15] MEDS: Pantoprazole TAB * 40 MG TAB PO SCH (08:49)
[2019-02-15] MEDS: Furosemide TAB* 20 MG PO SCH (08:49)
[2019-02-15] MEDS ORDERED: Cetirizine* 10 MG TAB PO SCH (09:00)
[2019-02-15] MEDS: Enoxaparin(*) 30 MG/0.3 ML SYR SUBCUT SCH (16:06)
[2019-02-15] MEDS: Insulin GLARGINE(*) 1 UNITS UNIT SUBCUT SCH (20:50)
[2019-02-16] MEDS: oxyCODONE/Acetamin 5/325 MG* TAB PO PRN (01:45)
[2019-02-16] MEDS: guaiFENesin ER TAB 600 MG PO PRN ×2 (01:56→23:05)
[2019-02-16] MEDS: Levothyroxine TAB* 100 MCG TAB PO SCH (05:43)
--- NOTE | 2019-02-16 08:26 | PN ---
Subjective Date of Service: 02/16/19 Interval History: Kat is feeling well. She is depressed and anxious because of homelessness. She feels congested and mucinex helped overnight. Objective Active Medications: Acetaminophen (Tylenol Tab*) 650 mg PO Q6H PRN PRN Reason: MILD PAIN or TEMP > 100.4 Last Admin: 02/15/19 23:15 Dose: 650 mg Amlodipine Besylate (Norvasc Tab*) 10 mg PO DAILY [facility] Last Admin: 02/15/19 08:48 Dose: 10 mg Artificial Tears (Natural Balance Tears Eye Drop) 2 drop BOTH EYES Q2H PRN PRN Reason: DRY EYE Last Admin: 02/14/19 22:43 Dose: 2 unit Aspirin (Aspirin Ec Tab*) 81 mg PO DAILY [facility] Last Admin: 02/15/19 08:49 Dose: 81 mg Atenolol (Tenormin Tab*) 100 mg PO DAILY [facility] Last Admin: 02/15/19 08:46 Dose: 100 mg Atorvastatin Calcium (Lipitor*) 20 mg PO DAILY [facility] Last Admin: 02/15/19 08:48 Dose: 20 mg Cetirizine HCl (Zyrtec*) 10 mg PO DAILY [facility] Last Admin: 02/15/19 08:46 Dose: 10 mg Docusate Sodium (Colace Cap*) 200 mg PO DAILY [facility] Last Admin: 02/15/19 08:47 Dose: 200 mg Enoxaparin Sodium (Lovenox(*)) 30 mg SUBCUT Q24H [facility] Last Admin: 02/15/19 16:06 Dose: 30 mg Fluticasone Propionate (Flonase Nasal [place] 50mcg*) 1 spray BOTH NARES BID [facility] Last Admin: 02/15/19 20:52 Dose: 1 spray Furosemide (Lasix Tab*) 20 mg PO DAILY WITH MEAL [facility] Last Admin: 02/15/19 08:49 Dose: 20 mg Guaifenesin (Mucinex*) 600 mg PO BID PRN PRN Reason: CONGESTION Last Admin: 02/16/19 01:56 Dose: 600 mg Insulin Glargine (Lantus(*)) 40 units SUBCUT BEDTIME [facility] Last Admin: 02/15/19 20:50 Dose: 40 units Levothyroxine Sodium (Synthroid Tab*) 200 mcg PO 0600 [facility] Last Admin: 02/16/19 05:43 Dose: 200 mcg Losartan Potassium (Cozaar Tab*) 25 mg PO DAILY [facility] Last Admin: 02/15/19 08:48 Dose: 25 mg Melatonin (Melatonin) 3 mg PO BEDTIME PRN PRN Reason: Sleep Last Admin: 02/14/19 19:57 Dose: 3 mg Ondansetron HCl (Zofran Inj*) 4 mg IV Q6H PRN PRN Reason: NAUSEA Oxycodone/Acetaminophen (Percocet 5/325 Tab*) 1 tab PO Q6H PRN PRN Reason: PAIN - MODERATE Last Admin: 02/16/19 01:45 Dose: 1 tab Pantoprazole Sodium (Protonix Tab*) 40 mg PO DAILY [facility] Last Admin: 02/15/19 08:49 Dose: 40 mg Polyethylene Glycol/Electrolytes (Miralax*) 17 gm PO DAILY [facility] Last Admin: 02/15/19 08:45 Dose: 17 gm Potassium Chloride (Klor Con Er Tab*) 10 meq PO DAILY [facility] Last Admin: 02/15/19 08:48 Dose: 10 meq Sertraline HCl (Zoloft*) 50 mg PO DAILY [facility] Last Admin: 02/15/19 08:48 Dose: 50 mg Simethicone (Mylicon Tab*) 80 mg PO QID PRN PRN Reason: INDIGESTION Last Admin: 02/14/19 19:58 Dose: 80 mg Throat Lozenges (Chloraseptic Kimani*) 1 kimani MT Q6H PRN PRN Reason: SORE THROAT Last Admin: 02/15/19 07:11 Dose: 1 kimani Venlafaxine HCl (Effexor Xr Cap*) 150 mg PO DAILY [facility] Last Admin: 02/15/19 08:47 Dose: 150 mg Vital Signs - 8 hr 02/16/19 02/16/19 02/16/19 01:45 05:13 07:15 Temperature 97.8 F Pulse Rate 72 Respiratory 16 18 18 Rate Blood Pressure 138/58 (mmHg) O2 Sat by Pulse 90 Oximetry Oxygen Devices in Use Now: None Appearance: alert, well appearing Eyes: No Scleral Icterus Ears/Nose/Mouth/Throat: NL Teeth, Lips, Gums Neck: NL Appearance and Movements; NL JVP Respiratory: Symmetrical Chest Expansion and Respiratory Effort, - - few crackles at the bases Cardiovascular: NL Sounds; No Murmurs; No JVD, RRR Abdominal: NL Sounds; No Tenderness; No Distention Lymphatic: No Cervical Adenopathy Extremities: - - 2+ edema b/l Skin: No Rash or Ulcers Neurological: Alert and Oriented x 3 Result Diagrams: 02/09/19 14:58 02/09/19 14:58 Microbiology and Other Data: Microbiology 02/10/19 14:00 Stool Culture - Final Stool Stool Gross Appearance - Final Shiga Toxin I & II - Final Negative Shiga Toxin 1 & 2 02/10/19 14:24 Cryptosporidium/Giardia - Final Stool Neg Cryptosporidium/Giardia 02/09/19 03:15 Urine Culture - Final Urine No Growth (<1,000 CFU/mL) Assess/Plan/Problems-Billing Assessment: This is a 73 year old woman with history of DM, CKD, PTSD, anxiety/depression who presented to the ED on 02/09 from the hotel where she was living with reports that she was unable to care for herself. She is admitted to [facility] under snf care status. - Patient Problems (1) Falls frequently Current Visit: No Status: Acute Code(s): R29.6 - REPEATED FALLS SNOMED Code(s): 993770505 Comment: she reports just one fall prior to admission, getting stuck between a wall and the bed and had nothing to grab on to (2) CKD (chronic kidney disease) stage 3, GFR 30-59 ml/min Current Visit: No Status: Chronic Code(s): N18.3 - CHRONIC KIDNEY DISEASE, STAGE 3 (MODERATE) SNOMED Code(s): 428518049 Comment: at baseline (3) Depression Current Visit: No Status: Chronic Priority: Medium Code(s): F32.9 - MAJOR DEPRESSIVE DISORDER, SINGLE EPISODE, UNSPECIFIED SNOMED Code(s): 57418462 Comment: she is on an SNRI and an SSRI ?? I suggested discontinuing one of them but she is hesitant (4) Diabetes mellitus, type 2 Current Visit: No Status: Chronic Priority: Medium Comment: A1c 7.6 2018 suggesting good control on lantus 40U daily fingersticks have been mostly at goal (5) History of pulmonary embolism Current Visit: No Status: Chronic Code(s): Z86.711 - PERSONAL HISTORY OF PULMONARY EMBOLISM SNOMED Code(s): 905320383 Comment: Dx in 2016 (?provoked and/or unprovoked)SDH after a fall; no history of PE recurrence and given history of IC bleed, no AC indicated
[2019-02-16] MEDS: Polyethylene Glycol 3350* 17 GM PACKET PO SCH (08:47)
[2019-02-16] MEDS: Docusate CAP* 100 MG PO SCH (08:50)
[2019-02-16] MEDS: Aspirin EC TAB* 81 MG TAB.EC PO SCH (08:50)
[2019-02-16] MEDS: Furosemide TAB* 20 MG PO SCH (08:50)
[2019-02-16] MEDS: Atorvastatin* 20 MG TAB PO SCH (08:51)
[2019-02-16] MEDS: Potassium Chlor TAB* 10 MEQ TAB.ER PO SCH (08:51)
[2019-02-16] MEDS: amLODIPine TAB* 5 MG PO SCH (08:51)
[2019-02-16] MEDS: Atenolol TAB* 50 MG PO SCH (08:51)
[2019-02-16] MEDS: Pantoprazole TAB * 40 MG TAB PO SCH (08:51)
[2019-02-16] MEDS: Losartan TAB* 25 MG PO SCH (08:51)
[2019-02-16] MEDS: Sertraline* 50 MG TAB PO SCH (08:52)
[2019-02-16] MEDS: Venlafaxine EXT RELEASE CAP* 75 MG PO SCH (08:52)
[2019-02-16] MEDS: Fluticasone NASAL SPRAY 50MCG* 16 gm SPRAY BTL BOTH NARES SCH ×3 (08:54→20:51)
--- NOTE | 2019-02-16 13:05 | CONSULT ---
Consult Consult: Frank consult was requested by Dr. Butcher. The patient is currently on two different anti-depressants with unremitting anxiety. Recommendations included to contact PCP in attempt to understand the patients current treatment choices. Unless dual treatment is indicated, the recommendation included titration to mono-therapy to include only Effexor. Please call if you have any questions Pramod Walters MD #[id number]
--- NOTE | 2019-02-16 15:13 | PN ---
Hospitalist Progress Note Date of Service: 02/16/19 Discussed the combination of venlafaxine + sertraline with Dr. Walters; he recommended venlafaxine in preference to sertraline, so will titrate sertraline down and then attempt to up-titrate the venlafaxine.
[2019-02-16] MEDS: Enoxaparin(*) 30 MG/0.3 ML SYR SUBCUT SCH (16:15)
[2019-02-16] MEDS: ALPRAZolam TAB* 0.25 MG PO PRN (16:15)
[2019-02-16] MEDS: Insulin GLARGINE(*) 1 UNITS UNIT SUBCUT SCH (20:51)
[2019-02-17] MEDS: Acetaminophen TAB* 325 MG PO PRN ×2 (00:36→17:07)
[2019-02-17] MEDS: Benzocaine/Menthol LOZ* 1 LOZENGE MT PRN ×2 (00:39→17:04)
[2019-02-17] MEDS: ALPRAZolam TAB* 0.25 MG PO PRN (01:47)
[2019-02-17] MEDS: Melatonin 3 MG TAB PO PRN (01:47)
[2019-02-17] MEDS: Levothyroxine TAB* 100 MCG TAB PO SCH (05:48)
[2019-02-17] MEDS: Losartan TAB* 25 MG PO SCH (11:28)
[2019-02-17] MEDS: Atenolol TAB* 50 MG PO SCH (11:29)
[2019-02-17] MEDS: Potassium Chlor TAB* 10 MEQ TAB.ER PO SCH (11:29)
[2019-02-17] MEDS: Pantoprazole TAB * 40 MG TAB PO SCH (11:29)
[2019-02-17] MEDS: Docusate CAP* 100 MG PO SCH (11:29)
[2019-02-17] MEDS: Sertraline* 25 MG TAB PO SCH (11:29)
[2019-02-17] MEDS: Aspirin EC TAB* 81 MG TAB.EC PO SCH (11:29)
[2019-02-17] MEDS: amLODIPine TAB* 5 MG PO SCH (11:29)
[2019-02-17] MEDS: Polyethylene Glycol 3350* 17 GM PACKET PO SCH (11:30)
[2019-02-17] MEDS: Atorvastatin* 20 MG TAB PO SCH (11:30)
[2019-02-17] MEDS: Venlafaxine EXT RELEASE CAP* 75 MG PO SCH (11:30)
[2019-02-17] MEDS: Fluticasone NASAL SPRAY 50MCG* 16 gm SPRAY BTL BOTH NARES SCH ×2 (11:30→21:48)
[2019-02-17] MEDS: Furosemide TAB* 20 MG PO SCH (11:30)
--- NOTE | 2019-02-17 12:47 | PN ---
Hospitalist Progress Note Date of Service: 02/17/19 I discussed the plan to reduce her dose of sertraline and increase the dose of escitalopram with the goal of discontinuing the sertraline altogether and increasing the dose of escitalopram to better control her symptoms. She understands and agrees with this plan.
[2019-02-17] MEDS: Dextran 70/Hypromellose Tears Eye Drops 15 ml BTL (for Artificials Tears) BOTH EYES PRN (17:03)
[2019-02-17] MEDS: guaiFENesin ER TAB 600 MG PO PRN (17:04)
[2019-02-17] MEDS: Cetirizine* 10 MG TAB PO SCH (17:07)
[2019-02-17] MEDS: Enoxaparin(*) 30 MG/0.3 ML SYR SUBCUT SCH (17:08)
--- NOTE | 2019-02-17 18:05 | PN ---
Hospitalist Progress Note Date of Service: 02/17/19 Followed up on CXR from yesterday; Kat still complains of feeling congested and "flu-like" with fatigue and myalgias. Will start augmentin for pneumonia, order sputum culture and flu swab.
[2019-02-17 19:12] LABS: Influenza A Molecular NEGATIVE (Negative); Influenza B Molecular NEGATIVE (Negative)
[2019-02-17] MEDS: Amoxicillin/Clavulanate TAB* 875 MG PO SCH (21:48)
[2019-02-17] MEDS: Insulin GLARGINE(*) 1 UNITS UNIT SUBCUT SCH (21:49)
[2019-02-18] MEDS: Benzocaine/Menthol LOZ* 1 LOZENGE MT PRN ×2 (01:58→10:04)
[2019-02-18] MEDS: ALPRAZolam TAB* 0.25 MG PO PRN ×2 (01:58→21:22)
[2019-02-18] MEDS: Levothyroxine TAB* 100 MCG TAB PO SCH (05:46)
[2019-02-18 08:26] LABS: Hematocrit 24 % (35-47); Hemoglobin 8.2 g/dL (12.0-16.0); Mean Platelet Volume 7.4 fL (7.4-10.4); Platelet Count 363 10^3/uL (150-450)
[2019-02-18 08:45] LABS: EGFR African American 19.6 (>60); EGFR Non-African American 16.2 (>60)
[2019-02-18] MEDS ORDERED: Venlafaxine EXT RELEASE CAP* 75 MG PO SCH (09:00)
[2019-02-18] MEDS: Atenolol TAB* 50 MG PO SCH (09:53)
[2019-02-18] MEDS: Cetirizine* 10 MG TAB PO SCH (09:53)
[2019-02-18] MEDS: Pantoprazole TAB * 40 MG TAB PO SCH (09:53)
[2019-02-18] MEDS: Potassium Chlor TAB* 10 MEQ TAB.ER PO SCH (09:54)
[2019-02-18] MEDS: Losartan TAB* 25 MG PO SCH (09:54)
[2019-02-18] MEDS: Sertraline* 25 MG TAB PO SCH (09:54)
[2019-02-18] MEDS: Docusate CAP* 100 MG PO SCH (09:54)
[2019-02-18] MEDS: Atorvastatin* 20 MG TAB PO SCH (09:54)
[2019-02-18] MEDS: Venlafaxine EXT RELEASE CAP* 75 MG PO SCH (09:54)
[2019-02-18] MEDS: amLODIPine TAB* 5 MG PO SCH (09:54)
[2019-02-18] MEDS: Amoxicillin/Clavulanate TAB* 875 MG PO SCH ×2 (09:54→21:22)
[2019-02-18] MEDS: Aspirin EC TAB* 81 MG TAB.EC PO SCH (09:54)
[2019-02-18] MEDS: Furosemide TAB* 20 MG PO SCH (09:55)
[2019-02-18] MEDS: Polyethylene Glycol 3350* 17 GM PACKET PO SCH (10:00)
[2019-02-18] MEDS: Fluticasone NASAL SPRAY 50MCG* 16 gm SPRAY BTL BOTH NARES SCH ×2 (10:04→21:21)
[2019-02-18] MEDS: Simethicone TAB* 80 MG TAB.CHEW PO PRN (10:04)
[2019-02-18] MEDS: guaiFENesin ER TAB 600 MG PO PRN ×2 (10:04→21:22)
[2019-02-18] MEDS: Dextran 70/Hypromellose Tears Eye Drops 15 ml BTL (for Artificials Tears) BOTH EYES PRN (10:04)
[2019-02-18 13:35] LABS: White Blood Count 8.5 10^3/uL (3.5-10.8)
[2019-02-18] MEDS: Enoxaparin(*) 30 MG/0.3 ML SYR SUBCUT SCH (15:20)
[2019-02-18] MEDS: Insulin GLARGINE(*) 1 UNITS UNIT SUBCUT SCH (21:22)
[2019-02-19] MEDS: Levothyroxine TAB* 100 MCG TAB PO SCH (04:28)
[2019-02-19] MEDS: Benzocaine/Menthol LOZ* 1 LOZENGE MT PRN (04:28)
[2019-02-19] MEDS: guaiFENesin ER TAB 600 MG PO PRN ×2 (04:28→15:27)
[2019-02-19] MEDS: Aspirin EC TAB* 81 MG TAB.EC PO SCH (07:59)
[2019-02-19] MEDS: Venlafaxine EXT RELEASE CAP* 75 MG PO SCH (07:59)
[2019-02-19] MEDS: amLODIPine TAB* 5 MG PO SCH (07:59)
[2019-02-19] MEDS: Losartan TAB* 25 MG PO SCH (07:59)
[2019-02-19] MEDS: Pantoprazole TAB * 40 MG TAB PO SCH (07:59)
[2019-02-19] MEDS: Atorvastatin* 20 MG TAB PO SCH (07:59)
[2019-02-19] MEDS: Cetirizine* 10 MG TAB PO SCH (07:59)
[2019-02-19] MEDS: Sertraline* 25 MG TAB PO SCH (07:59)
[2019-02-19] MEDS: Potassium Chlor TAB* 10 MEQ TAB.ER PO SCH (07:59)
[2019-02-19] MEDS: Atenolol TAB* 50 MG PO SCH (07:59)
[2019-02-19] MEDS: Amoxicillin/Clavulanate TAB* 875 MG PO SCH ×2 (08:00→20:15)
[2019-02-19] MEDS: Docusate CAP* 100 MG PO SCH (08:00)
[2019-02-19] MEDS: Polyethylene Glycol 3350* 17 GM PACKET PO SCH (08:00)
[2019-02-19] MEDS: ALPRAZolam TAB* 0.25 MG PO PRN (08:00)
[2019-02-19] MEDS: Fluticasone NASAL SPRAY 50MCG* 16 gm SPRAY BTL BOTH NARES SCH ×2 (08:01→20:15)
[2019-02-19] MEDS: Furosemide TAB* 20 MG PO SCH (08:04)
[2019-02-19] MEDS: Enoxaparin(*) 30 MG/0.3 ML SYR SUBCUT SCH (15:27)
[2019-02-19] MEDS: Insulin GLARGINE(*) 1 UNITS UNIT SUBCUT SCH (20:15)
[2019-02-20] MEDS: Benzocaine/Menthol LOZ* 1 LOZENGE MT PRN ×2 (03:42→19:37)
[2019-02-20] MEDS: Acetaminophen TAB* 325 MG PO PRN ×2 (03:42→22:40)
[2019-02-20] MEDS: Levothyroxine TAB* 100 MCG TAB PO SCH (05:51)
[2019-02-20] MEDS: Simethicone TAB* 80 MG TAB.CHEW PO PRN (09:20)
[2019-02-20] MEDS: Fluticasone NASAL SPRAY 50MCG* 16 gm SPRAY BTL BOTH NARES SCH ×2 (09:20→19:33)
[2019-02-20] MEDS: Losartan TAB* 25 MG PO SCH (09:20)
[2019-02-20] MEDS: Atorvastatin* 20 MG TAB PO SCH (09:20)
[2019-02-20] MEDS: Aspirin EC TAB* 81 MG TAB.EC PO SCH (09:21)
[2019-02-20] MEDS: Furosemide TAB* 20 MG PO SCH (09:22)
[2019-02-20] MEDS: Pantoprazole TAB * 40 MG TAB PO SCH (09:23)
[2019-02-20] MEDS: Cetirizine* 10 MG TAB PO SCH (09:23)
[2019-02-20] MEDS: Atenolol TAB* 50 MG PO SCH (09:23)
[2019-02-20] MEDS: amLODIPine TAB* 5 MG PO SCH (09:23)
[2019-02-20] MEDS: Amoxicillin/Clavulanate TAB* 875 MG PO SCH ×2 (09:23→19:33)
[2019-02-20] MEDS: Docusate CAP* 100 MG PO SCH (09:23)
[2019-02-20] MEDS: Sertraline* 25 MG TAB PO SCH (09:24)
[2019-02-20] MEDS: Venlafaxine EXT RELEASE CAP* 75 MG PO SCH (09:24)
[2019-02-20] MEDS: Polyethylene Glycol 3350* 17 GM PACKET PO SCH (09:24)
[2019-02-20] MEDS: Potassium Chlor TAB* 10 MEQ TAB.ER PO SCH (09:24)
[2019-02-20] MEDS: Enoxaparin(*) 30 MG/0.3 ML SYR SUBCUT SCH (17:05)
[2019-02-20] MEDS: Insulin GLARGINE(*) 1 UNITS UNIT SUBCUT SCH (19:32)
[2019-02-20] MEDS: ALPRAZolam TAB* 0.25 MG PO PRN (19:37)
[2019-02-21] MEDS: Acetaminophen TAB* 325 MG PO PRN ×2 (04:41→15:54)
[2019-02-21] MEDS: Melatonin 3 MG TAB PO PRN ×2 (04:45→20:00)
[2019-02-21] MEDS: Levothyroxine TAB* 100 MCG TAB PO SCH (05:46)
[2019-02-21] MEDS: amLODIPine TAB* 5 MG PO SCH (09:30)
[2019-02-21] MEDS: Amoxicillin/Clavulanate TAB* 875 MG PO SCH ×2 (09:32→20:00)
[2019-02-21] MEDS: Aspirin EC TAB* 81 MG TAB.EC PO SCH (09:32)
[2019-02-21] MEDS: Cetirizine* 10 MG TAB PO SCH (09:33)
[2019-02-21] MEDS: Atenolol TAB* 50 MG PO SCH (09:33)
[2019-02-21] MEDS: Atorvastatin* 20 MG TAB PO SCH (09:33)
[2019-02-21] MEDS: Docusate CAP* 100 MG PO SCH (09:34)
[2019-02-21] MEDS: Pantoprazole TAB * 40 MG TAB PO SCH (09:35)
[2019-02-21] MEDS: Losartan TAB* 25 MG PO SCH (09:35)
[2019-02-21] MEDS: Sertraline* 25 MG TAB PO SCH (09:35)
[2019-02-21] MEDS: Potassium Chlor TAB* 10 MEQ TAB.ER PO SCH (09:36)
[2019-02-21] MEDS: Venlafaxine EXT RELEASE CAP* 75 MG PO SCH (09:36)
[2019-02-21] MEDS: Fluticasone NASAL SPRAY 50MCG* 16 gm SPRAY BTL BOTH NARES SCH ×2 (09:38→20:07)
[2019-02-21] MEDS: Polyethylene Glycol 3350* 17 GM PACKET PO SCH (09:39)
[2019-02-21] MEDS: Furosemide TAB* 20 MG PO SCH ×2 (10:01→10:07)
[2019-02-21] MEDS: Enoxaparin(*) 30 MG/0.3 ML SYR SUBCUT SCH (15:54)
[2019-02-21] MEDS: Insulin GLARGINE(*) 1 UNITS UNIT SUBCUT SCH (20:00)
[2019-02-21] MEDS: ALPRAZolam TAB* 0.25 MG PO PRN (20:01)
[2019-02-22] MEDS: Levothyroxine TAB* 100 MCG TAB PO SCH (06:02)
[2019-02-22] MEDS: Aspirin EC TAB* 81 MG TAB.EC PO SCH (07:50)
[2019-02-22] MEDS: Cetirizine* 10 MG TAB PO SCH (07:50)
[2019-02-22] MEDS: Pantoprazole TAB * 40 MG TAB PO SCH (07:50)
[2019-02-22] MEDS: Amoxicillin/Clavulanate TAB* 875 MG PO SCH ×2 (07:50→19:55)
[2019-02-22] MEDS: Venlafaxine EXT RELEASE CAP* 75 MG PO SCH (07:50)
[2019-02-22] MEDS: Losartan TAB* 25 MG PO SCH (07:50)
[2019-02-22] MEDS: Atenolol TAB* 50 MG PO SCH (07:51)
[2019-02-22] MEDS: Potassium Chlor TAB* 10 MEQ TAB.ER PO SCH (07:51)
[2019-02-22] MEDS: amLODIPine TAB* 5 MG PO SCH (07:51)
[2019-02-22] MEDS: Atorvastatin* 20 MG TAB PO SCH (07:51)
[2019-02-22] MEDS: Furosemide TAB* 20 MG PO SCH (07:51)
[2019-02-22] MEDS: Sertraline* 25 MG TAB PO SCH (07:51)
[2019-02-22] MEDS ORDERED: Polyethylene Glycol 3350* 17 GM PACKET PO PRN (09:00)
[2019-02-22] MEDS: Fluticasone NASAL SPRAY 50MCG* 16 gm SPRAY BTL BOTH NARES SCH ×2 (09:42→19:55)
[2019-02-22] MEDS: Enoxaparin(*) 30 MG/0.3 ML SYR SUBCUT SCH (15:08)
[2019-02-22] MEDS: ALPRAZolam TAB* 0.25 MG PO PRN (19:55)
[2019-02-22] MEDS: Acetaminophen TAB* 325 MG PO PRN (19:55)
[2019-02-22] MEDS: Melatonin 3 MG TAB PO PRN (19:56)
[2019-02-22] MEDS: Insulin GLARGINE(*) 1 UNITS UNIT SUBCUT SCH (19:56)
[2019-02-23] MEDS: Benzocaine/Menthol LOZ* 1 LOZENGE MT PRN (03:17)
[2019-02-23] MEDS: Acetaminophen TAB* 325 MG PO PRN (03:18)
[2019-02-23] MEDS: Levothyroxine TAB* 100 MCG TAB PO SCH (05:57)
--- NOTE | 2019-02-23 07:07 | PN ---
Subjective Date of Service: 02/23/19 Interval History: Reports "feeling better" Decreased cough Feels her nose is "a little stuffed up" Today as outlined; Stopped Augmentin Increased losaratan from 25mg (home dose) to 50 mg No change to Zolft: Discontinuing zoloft slowly and increasing venlafaxine (d6 lower dose zoloft today, will increase venlafaxine and monitor another week) Objective Active Medications: Acetaminophen (Tylenol Tab*) 650 mg PO Q6H PRN PRN Reason: MILD PAIN or TEMP > 100.4 Last Admin: 02/23/19 03:18 Dose: 650 mg Alprazolam (Xanax Tab*) 0.25 mg PO Q8H PRN PRN Reason: ANXIETY Last Admin: 02/22/19 19:55 Dose: 0.25 mg Amlodipine Besylate (Norvasc Tab*) 10 mg PO DAILY [facility] Last Admin: 02/22/19 07:51 Dose: 10 mg Artificial Tears (Natural Balance Tears Eye Drop) 2 drop BOTH EYES Q2H PRN PRN Reason: DRY EYE Last Admin: 02/18/19 10:04 Dose: 2 drop Aspirin (Aspirin Ec Tab*) 81 mg PO DAILY [facility] Last Admin: 02/22/19 07:50 Dose: 81 mg Atenolol (Tenormin Tab*) 100 mg PO DAILY [facility] Last Admin: 02/22/19 07:51 Dose: 100 mg Atorvastatin Calcium (Lipitor*) 20 mg PO DAILY [facility] Last Admin: 02/22/19 07:51 Dose: 20 mg Cetirizine HCl (Zyrtec*) 10 mg PO DAILY [facility] Last Admin: 02/22/19 07:50 Dose: 10 mg Enoxaparin Sodium (Lovenox(*)) 30 mg SUBCUT Q24H [facility] Last Admin: 02/22/19 15:08 Dose: 30 mg Fluticasone Propionate (Flonase Nasal [place] 50mcg*) 1 spray BOTH NARES BID [facility] Last Admin: 02/22/19 19:55 Dose: 1 spray Furosemide (Lasix Tab*) 20 mg PO DAILY WITH MEAL [facility] Last Admin: 02/22/19 07:51 Dose: 20 mg Guaifenesin (Mucinex*) 600 mg PO BID PRN PRN Reason: CONGESTION Last Admin: 02/19/19 15:27 Dose: 600 mg Insulin Glargine (Lantus(*)) 40 units SUBCUT BEDTIME [facility] Last Admin: 02/22/19 19:56 Dose: 40 units Levothyroxine Sodium (Synthroid Tab*) 200 mcg PO 0600 [facility] Last Admin: 02/23/19 05:57 Dose: 200 mcg Losartan Potassium (Cozaar Tab*) 50 mg PO DAILY [facility] Melatonin (Melatonin) 3 mg PO BEDTIME PRN PRN Reason: Sleep Last Admin: 02/22/19 19:56 Dose: 3 mg Ondansetron HCl (Zofran Inj*) 4 mg IV Q6H PRN PRN Reason: NAUSEA Pantoprazole Sodium (Protonix Tab*) 40 mg PO DAILY [facility] Last Admin: 02/22/19 07:50 Dose: 40 mg Polyethylene Glycol/Electrolytes (Miralax*) 17 gm PO DAILY PRN PRN Reason: CONSTIPATION Potassium Chloride (Klor Con Er Tab*) 10 meq PO DAILY [facility] Last Admin: 02/22/19 07:51 Dose: 10 meq Sertraline HCl (Zoloft*) 25 mg PO DAILY [facility] Last Admin: 02/22/19 07:51 Dose: 25 mg Simethicone (Mylicon Tab*) 80 mg PO QID PRN PRN Reason: INDIGESTION Last Admin: 02/20/19 09:20 Dose: 80 mg Throat Lozenges (Chloraseptic Vinh*) 1 vinh MT Q6H PRN PRN Reason: SORE THROAT Last Admin: 02/23/19 03:17 Dose: 1 vinh Venlafaxine HCl (Effexor Xr Cap*) 150 mg PO DAILY [facility] Last Admin: 02/22/19 07:50 Dose: 150 mg Vital Signs - 8 hr 02/23/19 00:36 Respiratory 16 Rate Oxygen Devices in Use Now: None Appearance: NAD Eyes: No Scleral Icterus, PERRLA Ears/Nose/Mouth/Throat: NL Teeth, Lips, Gums, Clear Oropharnyx Neck: NL Appearance and Movements; NL JVP, Trachea Midline Respiratory: Symmetrical Chest Expansion and Respiratory Effort, Clear to Auscultation Cardiovascular: RRR Abdominal: NL Sounds; No Tenderness; No Distention Extremities: No Edema Skin: No Rash or Ulcers Neurological: Alert and Oriented x 3 Result Diagrams: 02/18/19 08:05 02/18/19 08:05 Microbiology and Other Data: Microbiology 02/10/19 14:00 Stool Culture - Final Stool Stool Gross Appearance - Final Shiga Toxin I & II - Final Negative Shiga Toxin 1 & 2 02/10/19 14:24 Cryptosporidium/Giardia - Final Stool Neg Cryptosporidium/Giardia 02/09/19 03:15 Urine Culture - Final Urine No Growth (<1,000 CFU/mL) Assess/Plan/Problems-Billing Assessment: This is a 73 year old woman with history of DM, CKD, PTSD, anxiety/depression who presented to the ED on 02/09 from the hotel where she was living with reports that she was unable to care for herself. She is admitted to [facility] [place] under correction care status. - Patient Problems (1) Depression Comment: she is on an SNRI and an SSRI (zoloft and venlafaxine) cross titrate zoloft now 25mg. Venlafaxine 150 mg In 1 week (next Tuesday - discontinue zoloft and increase venlafaxine) (2) CKD (chronic kidney disease) stage 3, GFR 30-59 ml/min Comment: at baseline repeat BMP 02/24 (3) Diabetes mellitus, type 2 Comment: A1c 7.6 12/2018 suggesting good control on lantus 40U daily fingersticks have been mostly at goal (4) Falls frequently Comment: she reports just one fall prior to admission, getting stuck between a wall and the bed and had nothing to grab on to (5) History of pulmonary embolism Comment: Dx in 2016 (?provoked and/or unprovoked)SDH after a fall; no history of PE recurrence and given history of IC bleed, no AC indicated (6) HTN (hypertension) Comment: -increase losartan from 25 to 50mg - Continue amlodipine, atenolol; resume furosemide -home meds indicate losartan dose 100mg at home but admission indicates 25mg daily -hctz not listed in home meds. Can consider if additional med needed (7) Pneumonia Comment: given 5 days augmentin ended 02/23
[2019-02-23] MEDS: Atenolol TAB* 50 MG PO SCH (08:56)
[2019-02-23] MEDS: amLODIPine TAB* 5 MG PO SCH (08:56)
[2019-02-23] MEDS: Potassium Chlor TAB* 10 MEQ TAB.ER PO SCH (08:56)
[2019-02-23] MEDS: Furosemide TAB* 20 MG PO SCH (08:56)
[2019-02-23] MEDS: Aspirin EC TAB* 81 MG TAB.EC PO SCH (08:56)
[2019-02-23] MEDS: Pantoprazole TAB * 40 MG TAB PO SCH (08:56)
[2019-02-23] MEDS: Venlafaxine EXT RELEASE CAP* 75 MG PO SCH (08:56)
[2019-02-23] MEDS: Losartan TAB* 25 MG PO SCH (08:56)
[2019-02-23] MEDS: Atorvastatin* 20 MG TAB PO SCH (08:56)
[2019-02-23] MEDS: Cetirizine* 10 MG TAB PO SCH (08:56)
[2019-02-23] MEDS: Sertraline* 25 MG TAB PO SCH (08:56)
[2019-02-23] MEDS: Fluticasone NASAL SPRAY 50MCG* 16 gm SPRAY BTL BOTH NARES SCH ×2 (09:04→21:28)
[2019-02-23] MEDS: Enoxaparin(*) 30 MG/0.3 ML SYR SUBCUT SCH (17:01)
[2019-02-23] MEDS: Insulin GLARGINE(*) 1 UNITS UNIT SUBCUT SCH (21:28)
[2019-02-24] MEDS: Acetaminophen TAB* 325 MG PO PRN (04:09)
[2019-02-24] MEDS: Benzocaine/Menthol LOZ* 1 LOZENGE MT PRN (06:18)
[2019-02-24] MEDS: Levothyroxine TAB* 100 MCG TAB PO SCH (06:19)
[2019-02-24 07:00] LABS: ABS Basophils 0.1 10^3/ul (0-0.2); ABS Eosinophils 0.3 10^3/ul (0-0.6); ABS Lymphocytes 1.7 10^3/ul (1.0-4.8); ABS Monocytes 0.5 10^3/ul (0-0.8); Hematocrit 25 % (35-47); Hemoglobin 8.3 g/dL (12.0-16.0); Lymphocyte % 16.1 %; Mean Corpuscular HGB Conc 34 g/dL (31-36); Mean Corpuscular Hemoglobin 28 pg (27-31); Mean Corpuscular Volume 83 fL (80-97); Platelet Count 338 10^3/uL (150-450); Red Cell Distribution Width 16 % (10-15); White Blood Count 10.5 10^3/uL (3.5-10.8)
[2019-02-24 07:17] LABS: BUN/Creatinine Ratio 16.7 (8-20); Calcium 8.6 mg/dL (8.6-10.3); EGFR African American 19.3 (>60); EGFR Non-African American 15.9 (>60)
[2019-02-24] MEDS: Pantoprazole TAB * 40 MG TAB PO SCH (08:51)
[2019-02-24] MEDS: Venlafaxine EXT RELEASE CAP* 75 MG PO SCH (08:51)
[2019-02-24] MEDS: Sertraline* 25 MG TAB PO SCH (08:51)
[2019-02-24] MEDS: amLODIPine TAB* 5 MG PO SCH (08:52)
[2019-02-24] MEDS: Aspirin EC TAB* 81 MG TAB.EC PO SCH (08:52)
[2019-02-24] MEDS: Atenolol TAB* 50 MG PO SCH (08:52)
[2019-02-24] MEDS: Cetirizine* 10 MG TAB PO SCH (08:52)
[2019-02-24] MEDS: Atorvastatin* 20 MG TAB PO SCH (08:52)
[2019-02-24] MEDS: Furosemide TAB* 20 MG PO SCH (08:52)
[2019-02-24] MEDS: Potassium Chlor TAB* 10 MEQ TAB.ER PO SCH (08:52)
[2019-02-24] MEDS: Losartan TAB* 25 MG PO SCH (08:53)
[2019-02-24] MEDS: Fluticasone NASAL SPRAY 50MCG* 16 gm SPRAY BTL BOTH NARES SCH ×2 (08:53→20:04)
[2019-02-24] MEDS: Enoxaparin(*) 30 MG/0.3 ML SYR SUBCUT SCH (16:23)
[2019-02-24] MEDS: Insulin GLARGINE(*) 1 UNITS UNIT SUBCUT SCH (20:46)
[2019-02-25] MEDS: Levothyroxine TAB* 100 MCG TAB PO SCH (04:26)
[2019-02-25] MEDS: Simethicone TAB* 80 MG TAB.CHEW PO PRN (04:27)
[2019-02-25] MEDS: Losartan TAB* 25 MG PO SCH (09:17)
[2019-02-25] MEDS: Sertraline* 25 MG TAB PO SCH (09:18)
[2019-02-25] MEDS: Potassium Chlor TAB* 10 MEQ TAB.ER PO SCH (09:18)
[2019-02-25] MEDS: Cetirizine* 10 MG TAB PO SCH (09:18)
[2019-02-25] MEDS: Pantoprazole TAB * 40 MG TAB PO SCH (09:18)
[2019-02-25] MEDS: Furosemide TAB* 20 MG PO SCH (09:18)
[2019-02-25] MEDS: Venlafaxine EXT RELEASE CAP* 75 MG PO SCH (09:18)
[2019-02-25] MEDS: Atenolol TAB* 50 MG PO SCH (09:18)
[2019-02-25] MEDS: Aspirin EC TAB* 81 MG TAB.EC PO SCH (09:18)
[2019-02-25] MEDS: Atorvastatin* 20 MG TAB PO SCH (09:18)
[2019-02-25] MEDS: amLODIPine TAB* 5 MG PO SCH (09:18)
[2019-02-25] MEDS: Fluticasone NASAL SPRAY 50MCG* 16 gm SPRAY BTL BOTH NARES SCH ×2 (10:04→19:25)
--- NOTE | 2019-02-25 13:00 | PN ---
Progress Note - Progress Note Date of Service: 02/25/19 Note: Interval note: BP remains elevated on increased dose of losartan. Start hydrochlorothiazide 25mg daily now
--- NOTE | 2019-02-25 14:13 | PN ---
Progress Note - Progress Note Date of Service: 02/25/19 Note: Interval note: Attempting to cross taper down zoloft and up effexor. Today, Kat relayed she is feeling more depressed and wants to increase her zoloft. Will increase back to 50mg daily
[2019-02-25] MEDS: Ondansetron ODT TAB* 4 MG SL PRN (16:04)
[2019-02-25] MEDS: Hydrochlorothiazide TAB* 25 MG PO SCH (16:04)
[2019-02-25] MEDS: Enoxaparin(*) 30 MG/0.3 ML SYR SUBCUT SCH (16:04)
[2019-02-25] MEDS: Insulin GLARGINE(*) 1 UNITS UNIT SUBCUT SCH (21:05)
[2019-02-26] MEDS: Levothyroxine TAB* 100 MCG TAB PO SCH (07:11)
[2019-02-26] MEDS: Fluticasone NASAL SPRAY 50MCG* 16 gm SPRAY BTL BOTH NARES SCH ×2 (08:52→20:06)
[2019-02-26] MEDS: Hydrochlorothiazide TAB* 25 MG PO SCH (08:52)
[2019-02-26] MEDS: Cetirizine* 10 MG TAB PO SCH (08:52)
[2019-02-26] MEDS: Furosemide TAB* 20 MG PO SCH (08:53)
[2019-02-26] MEDS: Aspirin EC TAB* 81 MG TAB.EC PO SCH (08:53)
[2019-02-26] MEDS: Venlafaxine EXT RELEASE CAP* 75 MG PO SCH (08:53)
[2019-02-26] MEDS: Potassium Chlor TAB* 10 MEQ TAB.ER PO SCH (08:53)
[2019-02-26] MEDS: amLODIPine TAB* 5 MG PO SCH (08:53)
[2019-02-26] MEDS: Pantoprazole TAB * 40 MG TAB PO SCH (08:53)
[2019-02-26] MEDS: Losartan TAB* 25 MG PO SCH (08:53)
[2019-02-26] MEDS: Atorvastatin* 20 MG TAB PO SCH (08:53)
[2019-02-26] MEDS: Atenolol TAB* 50 MG PO SCH (08:53)
[2019-02-26] MEDS: Sertraline* 50 MG TAB PO SCH (08:53)
[2019-02-26] MEDS: Enoxaparin(*) 30 MG/0.3 ML SYR SUBCUT SCH (15:57)
[2019-02-26] MEDS: Insulin GLARGINE(*) 1 UNITS UNIT SUBCUT SCH (21:31)
[2019-02-26] MEDS: Simethicone TAB* 80 MG TAB.CHEW PO PRN (21:31)
[2019-02-27] MEDS: Levothyroxine TAB* 100 MCG TAB PO SCH (05:57)
[2019-02-27] MEDS: Cetirizine* 10 MG TAB PO SCH (09:15)
[2019-02-27] MEDS: Hydrochlorothiazide TAB* 25 MG PO SCH (09:15)
[2019-02-27] MEDS: Venlafaxine EXT RELEASE CAP* 75 MG PO SCH (09:15)
[2019-02-27] MEDS: Potassium Chlor TAB* 10 MEQ TAB.ER PO SCH (09:15)
[2019-02-27] MEDS: Aspirin EC TAB* 81 MG TAB.EC PO SCH (09:15)
[2019-02-27] MEDS: Losartan TAB* 25 MG PO SCH (09:15)
[2019-02-27] MEDS: Sertraline* 50 MG TAB PO SCH (09:15)
[2019-02-27] MEDS: amLODIPine TAB* 5 MG PO SCH (09:15)
[2019-02-27] MEDS: Atorvastatin* 20 MG TAB PO SCH (09:16)
[2019-02-27] MEDS: Atenolol TAB* 50 MG PO SCH (09:16)
[2019-02-27] MEDS: Furosemide TAB* 20 MG PO SCH (09:16)
[2019-02-27] MEDS: Fluticasone NASAL SPRAY 50MCG* 16 gm SPRAY BTL BOTH NARES SCH ×2 (09:19→23:35)
[2019-02-27] MEDS: Pantoprazole TAB * 40 MG TAB PO SCH (09:19)
[2019-02-27] MEDS: Enoxaparin(*) 30 MG/0.3 ML SYR SUBCUT SCH (16:40)
[2019-02-27] MEDS: Insulin GLARGINE(*) 1 UNITS UNIT SUBCUT SCH (23:26)
[2019-02-28] MEDS: Levothyroxine TAB* 100 MCG TAB PO SCH (06:08)
[2019-02-28] MEDS: Potassium Chlor TAB* 10 MEQ TAB.ER PO SCH (10:33)
[2019-02-28] MEDS: Atorvastatin* 20 MG TAB PO SCH (10:33)
[2019-02-28] MEDS: Atenolol TAB* 50 MG PO SCH (10:34)
[2019-02-28] MEDS: Pantoprazole TAB * 40 MG TAB PO SCH (10:34)
[2019-02-28] MEDS: Sertraline* 50 MG TAB PO SCH (10:34)
[2019-02-28] MEDS: Losartan TAB* 25 MG PO SCH (10:34)
[2019-02-28] MEDS: Furosemide TAB* 20 MG PO SCH (10:34)
[2019-02-28] MEDS: Venlafaxine EXT RELEASE CAP* 75 MG PO SCH (10:35)
[2019-02-28] MEDS: Cetirizine* 10 MG TAB PO SCH (10:35)
[2019-02-28] MEDS: Aspirin EC TAB* 81 MG TAB.EC PO SCH (10:35)
[2019-02-28] MEDS: amLODIPine TAB* 5 MG PO SCH (10:36)
[2019-02-28] MEDS: Hydrochlorothiazide TAB* 25 MG PO SCH (10:36)
[2019-02-28] MEDS: Fluticasone NASAL SPRAY 50MCG* 16 gm SPRAY BTL BOTH NARES SCH ×2 (10:37→21:38)
[2019-02-28] MEDS: Enoxaparin(*) 30 MG/0.3 ML SYR SUBCUT SCH (15:57)
[2019-02-28] MEDS: Insulin GLARGINE(*) 1 UNITS UNIT SUBCUT SCH (21:36)
[2019-03-01] MEDS: Levothyroxine TAB* 100 MCG TAB PO SCH (06:29)
[2019-03-01] MEDS: Atorvastatin* 20 MG TAB PO SCH (09:23)
[2019-03-01] MEDS: Atenolol TAB* 50 MG PO SCH (09:23)
[2019-03-01] MEDS: Furosemide TAB* 20 MG PO SCH (09:23)
[2019-03-01] MEDS: Aspirin EC TAB* 81 MG TAB.EC PO SCH (09:23)
[2019-03-01] MEDS: Venlafaxine EXT RELEASE CAP* 75 MG PO SCH (09:23)
[2019-03-01] MEDS: Hydrochlorothiazide TAB* 25 MG PO SCH (09:23)
[2019-03-01] MEDS: Cetirizine* 10 MG TAB PO SCH (09:24)
[2019-03-01] MEDS: Potassium Chlor TAB* 10 MEQ TAB.ER PO SCH (09:24)
[2019-03-01] MEDS: Pantoprazole TAB * 40 MG TAB PO SCH (09:24)
[2019-03-01] MEDS: amLODIPine TAB* 5 MG PO SCH (09:24)
[2019-03-01] MEDS: Fluticasone NASAL SPRAY 50MCG* 16 gm SPRAY BTL BOTH NARES SCH ×2 (09:24→21:04)
[2019-03-01] MEDS: Sertraline* 50 MG TAB PO SCH (09:24)
[2019-03-01] MEDS: Losartan TAB* 25 MG PO SCH (09:24)
[2019-03-01] MEDS: Enoxaparin(*) 30 MG/0.3 ML SYR SUBCUT SCH (16:20)
[2019-03-01] MEDS: Insulin GLARGINE(*) 1 UNITS UNIT SUBCUT SCH (21:22)
[2019-03-01] MEDS ORDERED: Insulin LISPRO* 1 UNITS UNIT SUBCUT ONE (21:53)
[2019-03-01] MEDS ORDERED: Dextrose 50% VIAL 50 ml IV PUSH PRN (21:53)
[2019-03-02] MEDS: Acetaminophen TAB* 325 MG PO PRN (01:31)
[2019-03-02] MEDS: Melatonin 3 MG TAB PO PRN (01:37)
[2019-03-02] MEDS: Levothyroxine TAB* 100 MCG TAB PO SCH (06:10)
--- NOTE | 2019-03-02 07:20 | PN ---
Subjective Date of Service: 03/02/19 Interval History: 73F PMH NIDDM, CKD, PTSD, HTN, anxiety/depression who presented to the ED on from the hotel where she was living with reports that she was unable to care for herself. She is admitted to [facility] under detention care status. Mild HTN, will uptitrate meds slightly Otherwise patient reports she has slept well, mood is good, she is eating and drinking and voiding freely and has no complaints. Objective Active Medications: Acetaminophen (Tylenol Tab*) 650 mg PO Q6H PRN PRN Reason: MILD PAIN or TEMP > 100.4 Last Admin: 03/02/19 01:31 Dose: 650 mg Amlodipine Besylate (Norvasc Tab*) 10 mg PO DAILY [facility] Last Admin: 03/01/19 09:24 Dose: 10 mg Artificial Tears (Natural Balance Tears Eye Drop) 2 drop BOTH EYES Q2H PRN PRN Reason: DRY EYE Last Admin: 02/18/19 10:04 Dose: 2 drop Aspirin (Aspirin Ec Tab*) 81 mg PO DAILY [facility] Last Admin: 03/01/19 09:23 Dose: 81 mg Atenolol (Tenormin Tab*) 100 mg PO DAILY [facility] Last Admin: 03/01/19 09:23 Dose: 100 mg Atorvastatin Calcium (Lipitor*) 20 mg PO DAILY [facility] Last Admin: 03/01/19 09:23 Dose: 20 mg Cetirizine HCl (Zyrtec*) 10 mg PO DAILY [facility] Last Admin: 03/01/19 09:24 Dose: 10 mg Dextrose (Dextrose 50% Vial 50 Ml*) 25 ml IV PUSH .FOR FS < 60 - SS PRN PRN Reason: FS < 60 Enoxaparin Sodium (Lovenox(*)) 30 mg SUBCUT Q24H [facility] Last Admin: 03/01/19 16:20 Dose: 30 mg Fluticasone Propionate (Flonase Nasal [place] 50mcg*) 1 spray BOTH NARES BID [facility] Last Admin: 03/01/19 21:04 Dose: Not Given Furosemide (Lasix Tab*) 20 mg PO DAILY WITH MEAL [facility] Last Admin: 03/01/19 09:23 Dose: 20 mg Guaifenesin (Mucinex*) 600 mg PO BID PRN PRN Reason: CONGESTION Last Admin: 02/19/19 15:27 Dose: 600 mg Hydrochlorothiazide (Hydrodiuril Tab*) 25 mg PO DAILY [facility] Last Admin: 03/01/19 09:23 Dose: 25 mg Insulin Glargine (Lantus(*)) 40 units SUBCUT BEDTIME [facility] Last Admin: 03/01/19 21:22 Dose: 40 units Levothyroxine Sodium (Synthroid Tab*) 200 mcg PO 0600 [facility] Last Admin: 03/02/19 06:10 Dose: 200 mcg Losartan Potassium (Cozaar Tab*) 50 mg PO DAILY [facility] Last Admin: 03/01/19 09:24 Dose: 50 mg Melatonin (Melatonin) 3 mg PO BEDTIME PRN PRN Reason: Sleep Last Admin: 03/02/19 01:37 Dose: 3 mg Ondansetron HCl (Zofran Inj*) 4 mg IV Q6H PRN PRN Reason: NAUSEA Ondansetron HCl (Zofran Odt Tab*) 4 mg SL Q6H PRN PRN Reason: NAUSEA/VOMITING Last Admin: 02/25/19 16:04 Dose: 4 mg Pantoprazole Sodium (Protonix Tab*) 40 mg PO DAILY [facility] Last Admin: 03/01/19 09:24 Dose: 40 mg Polyethylene Glycol/Electrolytes (Miralax*) 17 gm PO DAILY PRN PRN Reason: CONSTIPATION Last Admin: 02/25/19 09:28 Dose: 17 gm Potassium Chloride (Klor Con Er Tab*) 10 meq PO DAILY [facility] Last Admin: 03/01/19 09:24 Dose: 10 meq Sertraline HCl (Zoloft*) 50 mg PO DAILY [facility] Last Admin: 03/01/19 09:24 Dose: 50 mg Simethicone (Mylicon Tab*) 80 mg PO QID PRN PRN Reason: INDIGESTION Last Admin: 02/26/19 21:31 Dose: 80 mg Throat Lozenges (Chloraseptic Vinh*) 1 vinh MT Q6H PRN PRN Reason: SORE THROAT Last Admin: 02/24/19 06:18 Dose: 1 vinh Venlafaxine HCl (Effexor Xr Cap*) 150 mg PO DAILY [facility] Last Admin: 03/01/19 09:23 Dose: 150 mg Oxygen Devices in Use Now: None Appearance: Pleasant woman resting in bed Eyes: No Scleral Icterus, PERRLA Ears/Nose/Mouth/Throat: NL Teeth, Lips, Gums, Clear Oropharnyx Neck: NL Appearance and Movements; NL JVP, Trachea Midline Respiratory: Symmetrical Chest Expansion and Respiratory Effort, Clear to Auscultation Cardiovascular: NL Sounds; No Murmurs; No JVD, RRR Abdominal: NL Sounds; No Tenderness; No Distention, No Hepatosplenomegaly Lymphatic: No Cervical Adenopathy Extremities: No Edema Skin: No Rash or Ulcers Neurological: - - Oriented to self and place Result Diagrams: 02/24/19 06:37 02/24/19 06:37 Microbiology and Other Data: Microbiology 02/10/19 14:00 Stool Culture - Final Stool Stool Gross Appearance - Final Shiga Toxin I & II - Final Negative Shiga Toxin 1 & 2 02/10/19 14:24 Cryptosporidium/Giardia - Final Stool Neg Cryptosporidium/Giardia 02/09/19 03:15 Urine Culture - Final Urine No Growth (<1,000 CFU/mL) Assess/Plan/Problems-Billing Assessment: 73F PMH NIDDM, CKD, PTSD, HTN, anxiety/depression who presented to the ED on from the hotel where she was living with reports that she was unable to care for herself. She is admitted to [facility] under detention care status. - Patient Problems (1) Falls frequently Current Visit: Yes Status: Acute Code(s): R29.6 - REPEATED FALLS SNOMED Code(s): 711335175 Comment: - Contributing in her presentation (2) Hypothyroidism Current Visit: No Status: Chronic Priority: Medium Code(s): E03.9 - HYPOTHYROIDISM, UNSPECIFIED SNOMED Code(s): 64320232 Comment: - Continue levothyroxine (3) CKD (chronic kidney disease) stage 3, GFR 30-59 ml/min Current Visit: Yes Status: Chronic Code(s): N18.3 - CHRONIC KIDNEY DISEASE, STAGE 3 (MODERATE) SNOMED Code(s): 670783247 Comment: - BMP 02/24, elevated compared to recent past but will consider new baseline, lytes stable (4) Depression Current Visit: Yes Status: Chronic Priority: Medium Code(s): F32.9 - MAJOR DEPRESSIVE DISORDER, SINGLE EPISODE, UNSPECIFIED SNOMED Code(s): 78430706 Comment: - SNRI and an SSRI (zoloft and venlafaxine) - Zoloft now 50mg. Venlafaxine 150 mg - An attempt ot cross titrate was made but pt became symptomatic (5) Diabetes mellitus, type 2 Current Visit: Yes Status: Chronic Priority: Medium Comment: - A1c 7.6 2018 suggesting good control on lantus 40U daily - fingersticks have been mostly at goal, x 1 in 300s post dessert (6) HTN (hypertension) Current Visit: Yes Status: Chronic Priority: Medium Code(s): I10 - ESSENTIAL (PRIMARY) HYPERTENSION SNOMED Code(s): 00061035 Comment: - increase losartan from 50 to 75mg - Continue amlodipine, atenolol; resume furosemide - home meds indicate losartan dose 100mg at home but admission indicates 25mg daily - hctz not listed in home meds. Can consider if additional med needed (7) History of pulmonary embolism Current Visit: Yes Status: Chronic Code(s): Z86.711 - PERSONAL HISTORY OF PULMONARY EMBOLISM SNOMED Code(s): 097768671 Comment: Dx in 2016 (?provoked and/or unprovoked)SDH after a fall; no history of PE recurrence and given history of IC bleed, no AC indicated (8) Chronic diastolic congestive heart failure Current Visit: No Status: Chronic Code(s): I50.32 - CHRONIC DIASTOLIC ( CONGESTIVE) HEART FAILURE SNOMED Code(s): 728484279 Comment: - On Furosemide, euvolemic today - Echo from 12/2017 shows EF 50-55%, evidence of diastolic dysfunction (9) DVT prophylaxis Current Visit: No Status: Acute Priority: High Code(s): MJD6522 - SNOMED Code(s): 003363799 Comment: - Lovenox SQ (10) Full code status Current Visit: No Status: Acute Code(s): Z78.9 - OTHER SPECIFIED HEALTH STATUS SNOMED Code(s): 729136108 Comment: Status and Disposition: - Working to get medicaid established
[2019-03-02] MEDS: Sertraline* 50 MG TAB PO SCH (09:57)
[2019-03-02] MEDS: Atenolol TAB* 50 MG PO SCH (09:57)
[2019-03-02] MEDS: Venlafaxine EXT RELEASE CAP* 75 MG PO SCH (09:57)
[2019-03-02] MEDS: Furosemide TAB* 20 MG PO SCH (09:57)
[2019-03-02] MEDS: Pantoprazole TAB * 40 MG TAB PO SCH (09:57)
[2019-03-02] MEDS: Atorvastatin* 20 MG TAB PO SCH (09:57)
[2019-03-02] MEDS: Cetirizine* 10 MG TAB PO SCH (09:57)
[2019-03-02] MEDS: Losartan TAB* 25 MG PO SCH (09:57)
[2019-03-02] MEDS: Potassium Chlor TAB* 10 MEQ TAB.ER PO SCH (09:57)
[2019-03-02] MEDS: Aspirin EC TAB* 81 MG TAB.EC PO SCH (09:57)
[2019-03-02] MEDS: amLODIPine TAB* 5 MG PO SCH (09:58)
[2019-03-02] MEDS: Hydrochlorothiazide TAB* 25 MG PO SCH (09:58)
[2019-03-02] MEDS: Fluticasone NASAL SPRAY 50MCG* 16 gm SPRAY BTL BOTH NARES SCH ×3 (09:58→22:06)
[2019-03-02] MEDS: Enoxaparin(*) 30 MG/0.3 ML SYR SUBCUT SCH (16:25)
[2019-03-02] MEDS: Insulin GLARGINE(*) 1 UNITS UNIT SUBCUT SCH (22:03)
[2019-03-03] MEDS: Acetaminophen TAB* 325 MG PO PRN (02:46)
[2019-03-03] MEDS: Melatonin 3 MG TAB PO PRN (02:48)
[2019-03-03] MEDS: Levothyroxine TAB* 100 MCG TAB PO SCH (06:08)
[2019-03-03] MEDS: Furosemide TAB* 20 MG PO SCH (08:45)
[2019-03-03] MEDS: Hydrochlorothiazide TAB* 25 MG PO SCH (08:45)
[2019-03-03] MEDS: Cetirizine* 10 MG TAB PO SCH (08:45)
[2019-03-03] MEDS: Potassium Chlor TAB* 10 MEQ TAB.ER PO SCH (08:45)
[2019-03-03] MEDS: Aspirin EC TAB* 81 MG TAB.EC PO SCH (08:46)
[2019-03-03] MEDS: amLODIPine TAB* 5 MG PO SCH (08:46)
[2019-03-03] MEDS: Sertraline* 50 MG TAB PO SCH (08:46)
[2019-03-03] MEDS: Pantoprazole TAB * 40 MG TAB PO SCH (08:46)
[2019-03-03] MEDS: Atenolol TAB* 50 MG PO SCH (08:46)
[2019-03-03] MEDS: Atorvastatin* 20 MG TAB PO SCH (08:46)
[2019-03-03] MEDS: Venlafaxine EXT RELEASE CAP* 75 MG PO SCH (08:46)
[2019-03-03] MEDS: Losartan TAB* 25 MG PO SCH (08:47)
[2019-03-03] MEDS: Fluticasone NASAL SPRAY 50MCG* 16 gm SPRAY BTL BOTH NARES SCH ×2 (08:49→21:38)
[2019-03-03] MEDS: Enoxaparin(*) 30 MG/0.3 ML SYR SUBCUT SCH (15:46)
[2019-03-03] MEDS ORDERED: Fluconazole 150 MG TAB PO ONE (16:37)
[2019-03-03] MEDS: Insulin GLARGINE(*) 1 UNITS UNIT SUBCUT SCH (21:40)
[2019-03-04] MEDS: Levothyroxine TAB* 100 MCG TAB PO SCH (05:43)
[2019-03-04 06:36] LABS: Hematocrit 23 % (35-47); Hemoglobin 7.8 g/dL (12.0-16.0)
[2019-03-04 06:52] LABS: EGFR African American 18.6 (>60); EGFR Non-African American 15.3 (>60)
[2019-03-04] MEDS ORDERED: Dextrose 50% VIAL 50 ml IV PUSH PRN (07:29)
--- NOTE | 2019-03-04 07:38 | PN ---
Hospitalist Progress Note Date of Service: 03/04/19 Prison care update: 03/03 pt c/o yeast infection sx, tx emprically with fluconazole x 1, labs were done by a pharmacy protocol it seems, and shows Cr 2.98, and Hemoglobin 7.8, also persistently high PM glu #HTN: Recently uptitrated Losartan, may reflect bump in Cr, could check in one week, and as long as K stays stable, known CKD #CKD: Worsening baseline per prior note, possibly bump in setting of increase Losartan #Anemia: Drifting down since admission, though appears baseline is closer to 8, likely anemia of chronic disease in setting of renal disease, no active signs of bleeding, would check H/H with repeat Cr #IDDM: Added lispro for evening meal coverage, consider BID Glargine in future, though AM glu generally well controlled, could also consider moving Glargine ot AM No actionable updates.
[2019-03-04] MEDS: Fluticasone NASAL SPRAY 50MCG* 16 gm SPRAY BTL BOTH NARES SCH ×2 (08:00→22:15)
[2019-03-04] MEDS: Venlafaxine EXT RELEASE CAP* 75 MG PO SCH (08:09)
[2019-03-04] MEDS: Atenolol TAB* 50 MG PO SCH (08:09)
[2019-03-04] MEDS: Furosemide TAB* 20 MG PO SCH (08:09)
[2019-03-04] MEDS: Atorvastatin* 20 MG TAB PO SCH (08:09)
[2019-03-04] MEDS: Hydrochlorothiazide TAB* 25 MG PO SCH (08:09)
[2019-03-04] MEDS: Potassium Chlor TAB* 10 MEQ TAB.ER PO SCH (08:09)
[2019-03-04] MEDS: amLODIPine TAB* 5 MG PO SCH (08:09)
[2019-03-04] MEDS: Sertraline* 50 MG TAB PO SCH (08:09)
[2019-03-04] MEDS: Aspirin EC TAB* 81 MG TAB.EC PO SCH (08:09)
[2019-03-04] MEDS: Pantoprazole TAB * 40 MG TAB PO SCH (08:09)
[2019-03-04] MEDS: Losartan TAB* 25 MG PO SCH (08:09)
[2019-03-04] MEDS: Cetirizine* 10 MG TAB PO SCH (08:10)
[2019-03-04] MEDS: Insulin LISPRO* 1 UNITS UNIT SUBCUT SCH ×3 (08:37→17:42)
[2019-03-04] MEDS: Simethicone TAB* 80 MG TAB.CHEW PO PRN (10:30)
[2019-03-04] MEDS: Enoxaparin(*) 30 MG/0.3 ML SYR SUBCUT SCH (16:19)
[2019-03-04] MEDS: Insulin GLARGINE(*) 1 UNITS UNIT SUBCUT SCH (22:11)
[2019-03-04] MEDS: Benzocaine/Menthol LOZ* 1 LOZENGE MT PRN (22:14)
[2019-03-04] MEDS: guaiFENesin ER TAB 600 MG PO PRN (22:14)
[2019-03-04] MEDS: Melatonin 3 MG TAB PO PRN (22:14)
[2019-03-05] MEDS: Levothyroxine TAB* 100 MCG TAB PO SCH (06:12)
[2019-03-05] MEDS: Insulin LISPRO* 1 UNITS UNIT SUBCUT SCH ×3 (08:43→17:57)
[2019-03-05] MEDS: Venlafaxine EXT RELEASE CAP* 75 MG PO SCH (08:45)
[2019-03-05] MEDS: Hydrochlorothiazide TAB* 25 MG PO SCH (08:45)
[2019-03-05] MEDS: Atorvastatin* 20 MG TAB PO SCH (08:45)
[2019-03-05] MEDS: Potassium Chlor TAB* 10 MEQ TAB.ER PO SCH (08:45)
[2019-03-05] MEDS: Furosemide TAB* 20 MG PO SCH (08:45)
[2019-03-05] MEDS: Aspirin EC TAB* 81 MG TAB.EC PO SCH (08:45)
[2019-03-05] MEDS: Fluticasone NASAL SPRAY 50MCG* 16 gm SPRAY BTL BOTH NARES SCH ×2 (08:45→21:31)
[2019-03-05] MEDS: Losartan TAB* 25 MG PO SCH (08:45)
[2019-03-05] MEDS: amLODIPine TAB* 5 MG PO SCH (08:45)
[2019-03-05] MEDS: Cetirizine* 10 MG TAB PO SCH (08:45)
[2019-03-05] MEDS: Pantoprazole TAB * 40 MG TAB PO SCH (08:45)
[2019-03-05] MEDS: Sertraline* 50 MG TAB PO SCH (08:45)
[2019-03-05] MEDS: Atenolol TAB* 50 MG PO SCH (08:45)
[2019-03-05] MEDS: Enoxaparin(*) 30 MG/0.3 ML SYR SUBCUT SCH (17:57)
[2019-03-05] MEDS: Insulin GLARGINE(*) 1 UNITS UNIT SUBCUT SCH (21:38)
[2019-03-06] MEDS: Levothyroxine TAB* 100 MCG TAB PO SCH (06:11)
[2019-03-06] MEDS: Fluticasone NASAL SPRAY 50MCG* 16 gm SPRAY BTL BOTH NARES SCH ×2 (07:34→20:46)
[2019-03-06] MEDS: Losartan TAB* 25 MG PO SCH (09:07)
[2019-03-06] MEDS: amLODIPine TAB* 5 MG PO SCH (09:07)
[2019-03-06] MEDS: Sertraline* 50 MG TAB PO SCH (09:07)
[2019-03-06] MEDS: Pantoprazole TAB * 40 MG TAB PO SCH (09:08)
[2019-03-06] MEDS: Aspirin EC TAB* 81 MG TAB.EC PO SCH (09:08)
[2019-03-06] MEDS: Atenolol TAB* 50 MG PO SCH (09:08)
[2019-03-06] MEDS: Venlafaxine EXT RELEASE CAP* 75 MG PO SCH (09:08)
[2019-03-06] MEDS: Hydrochlorothiazide TAB* 25 MG PO SCH (09:08)
[2019-03-06] MEDS: Potassium Chlor TAB* 10 MEQ TAB.ER PO SCH (09:08)
[2019-03-06] MEDS: Cetirizine* 10 MG TAB PO SCH (09:08)
[2019-03-06] MEDS: Furosemide TAB* 20 MG PO SCH (09:08)
[2019-03-06] MEDS: Atorvastatin* 20 MG TAB PO SCH (09:08)
[2019-03-06] MEDS: Acetaminophen TAB* 325 MG PO PRN ×2 (09:08→18:11)
[2019-03-06] MEDS: Insulin LISPRO* 1 UNITS UNIT SUBCUT SCH ×3 (09:10→17:07)
[2019-03-06] MEDS: Enoxaparin(*) 30 MG/0.3 ML SYR SUBCUT SCH (17:05)
[2019-03-06] MEDS: Insulin GLARGINE(*) 1 UNITS UNIT SUBCUT SCH (20:51)
[2019-03-07] MEDS: Acetaminophen TAB* 325 MG PO PRN (06:34)
[2019-03-07] MEDS: Levothyroxine TAB* 100 MCG TAB PO SCH (06:34)
[2019-03-07] MEDS: Atenolol TAB* 50 MG PO SCH (09:13)
[2019-03-07] MEDS: Furosemide TAB* 20 MG PO SCH (09:13)
[2019-03-07] MEDS: Atorvastatin* 20 MG TAB PO SCH (09:13)
[2019-03-07] MEDS: amLODIPine TAB* 5 MG PO SCH (09:14)
[2019-03-07] MEDS: Losartan TAB* 25 MG PO SCH (09:14)
[2019-03-07] MEDS: Cetirizine* 10 MG TAB PO SCH (09:14)
[2019-03-07] MEDS: Potassium Chlor TAB* 10 MEQ TAB.ER PO SCH (09:14)
[2019-03-07] MEDS: Aspirin EC TAB* 81 MG TAB.EC PO SCH (09:14)
[2019-03-07] MEDS: Hydrochlorothiazide TAB* 25 MG PO SCH (09:14)
[2019-03-07] MEDS: Venlafaxine EXT RELEASE CAP* 75 MG PO SCH (09:14)
[2019-03-07] MEDS: Sertraline* 50 MG TAB PO SCH (09:14)
[2019-03-07] MEDS: Pantoprazole TAB * 40 MG TAB PO SCH (09:14)
[2019-03-07] MEDS: Fluticasone NASAL SPRAY 50MCG* 16 gm SPRAY BTL BOTH NARES SCH ×2 (09:17→19:54)
[2019-03-07] MEDS: Insulin LISPRO* 1 UNITS UNIT SUBCUT SCH ×3 (09:30→18:17)
[2019-03-07 09:42] LABS: Hematocrit 28 % (35-47); Hemoglobin 9.3 g/dL (12.0-16.0)
[2019-03-07 10:07] LABS: BUN/Creatinine Ratio 21.1 (8-20); Calcium 9.5 mg/dL (8.6-10.3); EGFR African American 17.5 (>60); EGFR Non-African American 14.5 (>60); Potassium 4.5 mmol/L (3.5-5.0)
[2019-03-07] MEDS: Enoxaparin(*) 30 MG/0.3 ML SYR SUBCUT SCH (16:20)
--- NOTE | 2019-03-07 16:44 | PN ---
Subjective Date of Service: 03/07/19 Interval History: Patient complains of 1 day posterior neck pain. She talks about a fall/neck injury 2 years ago. No recent trauma. Family History: Unchanged from Admission Social History: Unchanged from Admission Past Medical History: Unchanged from Admission Objective Active Medications: Acetaminophen (Tylenol Tab*) 650 mg PO Q6H PRN PRN Reason: MILD PAIN or TEMP > 100.4 Last Admin: 03/07/19 06:34 Dose: 650 mg Amlodipine Besylate (Norvasc Tab*) 10 mg PO DAILY [facility] Last Admin: 03/07/19 09:14 Dose: 10 mg Artificial Tears (Natural Balance Tears Eye Drop) 2 drop BOTH EYES Q2H PRN PRN Reason: DRY EYE Last Admin: 02/18/19 10:04 Dose: 2 drop Aspirin (Aspirin Ec Tab*) 81 mg PO DAILY [facility] Last Admin: 03/07/19 09:14 Dose: 81 mg Atenolol (Tenormin Tab*) 100 mg PO DAILY [facility] Last Admin: 03/07/19 09:13 Dose: 100 mg Atorvastatin Calcium (Lipitor*) 20 mg PO DAILY [facility] Last Admin: 03/07/19 09:13 Dose: 20 mg Cetirizine HCl (Zyrtec*) 10 mg PO DAILY [facility] Last Admin: 03/07/19 09:14 Dose: 10 mg Enoxaparin Sodium (Lovenox(*)) 30 mg SUBCUT Q24H [facility] Last Admin: 03/07/19 16:20 Dose: 30 mg Fluticasone Propionate (Flonase Nasal [place] 50mcg*) 1 spray BOTH NARES BID [facility] Last Admin: 03/07/19 09:17 Dose: Not Given Furosemide (Lasix Tab*) 20 mg PO DAILY WITH MEAL [facility] Last Admin: 03/07/19 09:13 Dose: 20 mg Guaifenesin (Mucinex*) 600 mg PO BID PRN PRN Reason: CONGESTION Last Admin: 03/04/19 22:14 Dose: 600 mg Hydrochlorothiazide (Hydrodiuril Tab*) 25 mg PO DAILY [facility] Last Admin: 03/07/19 09:14 Dose: 25 mg Insulin Glargine (Lantus(*)) 40 units SUBCUT BEDTIME [facility] Last Admin: 03/06/19 20:51 Dose: 40 units Insulin Human Lispro (Humalog*) 0 units SUBCUT AC [facility]; Protocol Last Admin: 03/07/19 13:00 Dose: 9 units Levothyroxine Sodium (Synthroid Tab*) 200 mcg PO 0600 [facility] Last Admin: 03/07/19 06:34 Dose: 200 mcg Losartan Potassium (Cozaar Tab*) 75 mg PO DAILY [facility] Last Admin: 03/07/19 09:14 Dose: 75 mg Melatonin (Melatonin) 3 mg PO BEDTIME PRN PRN Reason: Sleep Last Admin: 03/04/19 22:14 Dose: 3 mg Ondansetron HCl (Zofran Inj*) 4 mg IV Q6H PRN PRN Reason: NAUSEA Ondansetron HCl (Zofran Odt Tab*) 4 mg SL Q6H PRN PRN Reason: NAUSEA/VOMITING Last Admin: 02/25/19 16:04 Dose: 4 mg Pantoprazole Sodium (Protonix Tab*) 40 mg PO DAILY [facility] Last Admin: 03/07/19 09:14 Dose: 40 mg Polyethylene Glycol/Electrolytes (Miralax*) 17 gm PO DAILY PRN PRN Reason: CONSTIPATION Last Admin: 02/25/19 09:28 Dose: 17 gm Potassium Chloride (Klor Con Er Tab*) 10 meq PO DAILY [facility] Last Admin: 03/07/19 09:14 Dose: 10 meq Sertraline HCl (Zoloft*) 50 mg PO DAILY [facility] Last Admin: 03/07/19 09:14 Dose: 50 mg Simethicone (Mylicon Tab*) 80 mg PO QID PRN PRN Reason: INDIGESTION Last Admin: 03/04/19 10:30 Dose: 80 mg Throat Lozenges (Chloraseptic Vinh*) 1 vinh MT Q6H PRN PRN Reason: SORE THROAT Last Admin: 03/04/19 22:14 Dose: 1 vinh Venlafaxine HCl (Effexor Xr Cap*) 150 mg PO DAILY [facility] Last Admin: 03/07/19 09:14 Dose: 150 mg Oxygen Devices in Use Now: None Appearance: alert, no distress Neck: NL Appearance and Movements; NL JVP, Trachea Midline, No Thyroid Enlargement, Masses, - - tender LT trapezius Respiratory: Clear to Auscultation Cardiovascular: NL Sounds; No Murmurs; No JVD, No Edema Abdominal: NL Sounds; No Tenderness; No Distention Neurological: Alert and Oriented x 3 Lines/Tubes/Other Access: Clean, Dry and Intact Peripheral IV Nutrition: Taking PO's Result Diagrams: 03/07/19 09:13 03/07/19 09:13 Assess/Plan/Problems-Billing Assessment: 73F PMH NIDDM, CKD, PTSD, HTN, anxiety/depression who presented to the ED on from the hotel where she was living with reports that she was unable to care for herself. She is admitted to [facility] under nursing home care status. - Patient Problems (1) Neck pain Current Visit: Yes Status: Acute Priority: Medium Code(s): M54.2 - CERVICALGIA SNOMED Code(s): 83915492 Comment: -Appears to have muscle spasm -Will start percocet PRN -Would benefit from PT attention (2) CKD (chronic kidney disease) stage 3, GFR 30-59 ml/min Current Visit: Yes Status: Chronic Priority: Medium Code(s): N18.3 - CHRONIC KIDNEY DISEASE, STAGE 3 (MODERATE) SNOMED Code(s): 480785849 Comment: - Creatinine worsening, will stop ARB and lasix, reassess in 2 days. (3) Anemia Current Visit: No Status: Acute Code(s): D64.9 - ANEMIA, UNSPECIFIED SNOMED Code(s): 996181030 Comment: - improved - Iron studies previously normal, suspect anemia of chronic disease 2/2 CKD Status and Disposition: - Working to get medicaid established
[2019-03-07] MEDS: Insulin GLARGINE(*) 1 UNITS UNIT SUBCUT SCH (21:35)
[2019-03-07] MEDS: oxyCODONE/Acetamin 5/325 MG* TAB PO PRN (21:35)
[2019-03-07] MEDS: Melatonin 3 MG TAB PO PRN (23:59)
[2019-03-08] MEDS: Acetaminophen TAB* 325 MG PO PRN (05:06)
[2019-03-08] MEDS: Levothyroxine TAB* 100 MCG TAB PO SCH (05:09)
[2019-03-08] MEDS: oxyCODONE/Acetamin 5/325 MG* TAB PO PRN (05:13)
[2019-03-08] MEDS: Fluticasone NASAL SPRAY 50MCG* 16 gm SPRAY BTL BOTH NARES SCH ×2 (07:38→20:17)
[2019-03-08 08:36] LABS: Mean Platelet Volume 7.5 fL (7.4-10.4); Platelet Count 391 10^3/uL (150-450)
[2019-03-08] MEDS: Hydrochlorothiazide TAB* 25 MG PO SCH (09:13)
[2019-03-08] MEDS: amLODIPine TAB* 5 MG PO SCH (09:13)
[2019-03-08] MEDS: Sertraline* 50 MG TAB PO SCH (09:13)
[2019-03-08] MEDS: Pantoprazole TAB * 40 MG TAB PO SCH (09:13)
[2019-03-08] MEDS: Cetirizine* 10 MG TAB PO SCH (09:13)
[2019-03-08] MEDS: Venlafaxine EXT RELEASE CAP* 75 MG PO SCH (09:13)
[2019-03-08] MEDS: Potassium Chlor TAB* 10 MEQ TAB.ER PO SCH (09:13)
[2019-03-08] MEDS: Atenolol TAB* 50 MG PO SCH (09:13)
[2019-03-08] MEDS: Atorvastatin* 20 MG TAB PO SCH (09:13)
[2019-03-08] MEDS: Aspirin EC TAB* 81 MG TAB.EC PO SCH (09:13)
[2019-03-08] MEDS: Insulin LISPRO* 1 UNITS UNIT SUBCUT SCH ×3 (09:14→17:45)
[2019-03-08] MEDS: Enoxaparin(*) 30 MG/0.3 ML SYR SUBCUT SCH (17:43)
[2019-03-08] MEDS: Insulin GLARGINE(*) 1 UNITS UNIT SUBCUT SCH (20:22)
[2019-03-09] MEDS: oxyCODONE/Acetamin 5/325 MG* TAB PO PRN (00:46)
[2019-03-09] MEDS: Ondansetron ODT TAB* 4 MG SL PRN ×2 (04:57→18:00)
[2019-03-09] MEDS: Levothyroxine TAB* 100 MCG TAB PO SCH (04:57)
[2019-03-09 09:11] LABS: Calcium 8.9 mg/dL (8.6-10.3); Chloride 111 mmol/L (101-111); Sodium 139 mmol/L (135-145)
[2019-03-09 09:13] LABS: Anion Gap 14 mmol/L (2-11); CO2 Carbon Dioxide 14 mmol/L (22-32)
[2019-03-09 09:16] LABS: BUN/Creatinine Ratio 21.3 (8-20); Blood Urea Nitrogen 68 mg/dL (6-24); EGFR African American 17.1 (>60); EGFR Non-African American 14.1 (>60); Glucose 79 mg/dL (70-100)
[2019-03-09] MEDS: Potassium Chlor TAB* 10 MEQ TAB.ER PO SCH (10:08)
[2019-03-09] MEDS: Hydrochlorothiazide TAB* 25 MG PO SCH (10:08)
[2019-03-09] MEDS: amLODIPine TAB* 5 MG PO SCH (10:08)
[2019-03-09] MEDS: Venlafaxine EXT RELEASE CAP* 75 MG PO SCH (10:08)
[2019-03-09] MEDS: Aspirin EC TAB* 81 MG TAB.EC PO SCH (10:08)
[2019-03-09] MEDS: Pantoprazole TAB * 40 MG TAB PO SCH (10:08)
[2019-03-09] MEDS: Cetirizine* 10 MG TAB PO SCH (10:08)
[2019-03-09] MEDS: Atenolol TAB* 50 MG PO SCH (10:08)
[2019-03-09] MEDS: Atorvastatin* 20 MG TAB PO SCH (10:09)
[2019-03-09] MEDS: Sertraline* 50 MG TAB PO SCH (10:09)
[2019-03-09] MEDS: Fluticasone NASAL SPRAY 50MCG* 16 gm SPRAY BTL BOTH NARES SCH ×2 (10:10→22:50)
[2019-03-09] MEDS: Insulin LISPRO* 1 UNITS UNIT SUBCUT SCH ×3 (10:10→17:56)
[2019-03-09] MEDS: Insulin GLARGINE(*) 1 UNITS UNIT SUBCUT SCH (22:46)
[2019-03-09] MEDS: Enoxaparin(*) 30 MG/0.3 ML SYR SUBCUT SCH (22:52)
[2019-03-10] MEDS: Levothyroxine TAB* 100 MCG TAB PO SCH (06:14)
[2019-03-10] MEDS: Aspirin EC TAB* 81 MG TAB.EC PO SCH (08:47)
[2019-03-10] MEDS: Sertraline* 50 MG TAB PO SCH (08:47)
[2019-03-10] MEDS: amLODIPine TAB* 5 MG PO SCH (08:47)
[2019-03-10] MEDS: Atenolol TAB* 50 MG PO SCH (08:47)
[2019-03-10] MEDS: Cetirizine* 10 MG TAB PO SCH (08:47)
[2019-03-10] MEDS: Potassium Chlor TAB* 10 MEQ TAB.ER PO SCH (08:47)
[2019-03-10] MEDS: Venlafaxine EXT RELEASE CAP* 75 MG PO SCH (08:47)
[2019-03-10] MEDS: Atorvastatin* 20 MG TAB PO SCH (08:47)
[2019-03-10] MEDS: Pantoprazole TAB * 40 MG TAB PO SCH (08:47)
[2019-03-10] MEDS: Insulin LISPRO* 1 UNITS UNIT SUBCUT SCH ×3 (09:15→17:24)
[2019-03-10] MEDS: Fluticasone NASAL SPRAY 50MCG* 16 gm SPRAY BTL BOTH NARES SCH ×2 (09:16→22:21)
[2019-03-10] MEDS: Enoxaparin(*) 30 MG/0.3 ML SYR SUBCUT SCH (17:24)
[2019-03-10 19:26] LABS: Urine Appearance Cloudy; Urine Bacteria 1+ (Absent); Urine Bilirubin Negative (Negative); Urine Blood 1+ (Negative); Urine Color Yellow; Urine Glucose 3+(>=500 mg/dL) (Negative); Urine Ketones Negative (Negative); Urine Nitrite Negative (Negative); Urine Protein 2+(100 mg/dL) (Negative); Urine Red Blood Cell Absent (Absent); Urine Specific Gravity 1.009 (1.010-1.030); Urine Urobilinogen Negative (Negative); Urine White Blood Cell 3+(>20/hpf) (Absent)
[2019-03-10] MEDS: Insulin GLARGINE(*) 1 UNITS UNIT SUBCUT SCH (22:27)
[2019-03-10] MEDS: oxyCODONE/Acetamin 5/325 MG* TAB PO PRN (23:16)
[2019-03-11] MEDS: Levothyroxine TAB* 100 MCG TAB PO SCH (05:38)
[2019-03-11 05:56] LABS: BUN/Creatinine Ratio 22.7 (8-20); Calcium 8.7 mg/dL (8.6-10.3); EGFR African American 16.2 (>60); EGFR Non-African American 13.4 (>60); Potassium 4.9 mmol/L (3.5-5.0)
[2019-03-11] MEDS: Insulin LISPRO* 1 UNITS UNIT SUBCUT SCH ×3 (08:57→17:46)
[2019-03-11] MEDS: Aspirin EC TAB* 81 MG TAB.EC PO SCH (09:00)
[2019-03-11] MEDS: Venlafaxine EXT RELEASE CAP* 75 MG PO SCH (09:01)
[2019-03-11] MEDS: Cetirizine* 10 MG TAB PO SCH (09:01)
[2019-03-11] MEDS: Sertraline* 50 MG TAB PO SCH (09:01)
[2019-03-11] MEDS: Atorvastatin* 20 MG TAB PO SCH (09:01)
[2019-03-11] MEDS: Pantoprazole TAB * 40 MG TAB PO SCH (09:02)
[2019-03-11] MEDS: Potassium Chlor TAB* 10 MEQ TAB.ER PO SCH (09:02)
[2019-03-11] MEDS: Atenolol TAB* 50 MG PO SCH (09:06)
[2019-03-11] MEDS: amLODIPine TAB* 5 MG PO SCH (09:07)
[2019-03-11] MEDS: Fluticasone NASAL SPRAY 50MCG* 16 gm SPRAY BTL BOTH NARES SCH ×2 (09:09→20:28)
--- NOTE | 2019-03-11 10:45 | PN ---
Subjective Date of Service: 03/11/19 Interval History: Patient reports 1 day of dysuria, urgency. Denies back pain, hematuria. May not be drinking enough water. Family History: Unchanged from Admission Social History: Unchanged from Admission Past Medical History: Unchanged from Admission Objective Active Medications: Acetaminophen (Tylenol Tab*) 650 mg PO Q6H PRN PRN Reason: MILD PAIN or TEMP > 100.4 Last Admin: 03/08/19 05:06 Dose: 650 mg Amlodipine Besylate (Norvasc Tab*) 5 mg PO DAILY [facility] Artificial Tears (Natural Balance Tears Eye Drop) 2 drop BOTH EYES Q2H PRN PRN Reason: DRY EYE Last Admin: 02/18/19 10:04 Dose: 2 drop Aspirin (Aspirin Ec Tab*) 81 mg PO DAILY [facility] Last Admin: 03/11/19 09:00 Dose: 81 mg Atenolol (Tenormin Tab*) 100 mg PO DAILY [facility] Last Admin: 03/11/19 09:06 Dose: 100 mg Atorvastatin Calcium (Lipitor*) 20 mg PO DAILY [facility] Last Admin: 03/11/19 09:01 Dose: 20 mg Cetirizine HCl (Zyrtec*) 10 mg PO DAILY [facility] Last Admin: 03/11/19 09:01 Dose: 10 mg Enoxaparin Sodium (Lovenox(*)) 30 mg SUBCUT Q24H [facility] Last Admin: 03/10/19 17:24 Dose: 30 mg Fluticasone Propionate (Flonase Nasal [place] 50mcg*) 1 spray BOTH NARES BID [facility] Last Admin: 03/11/19 09:09 Dose: Not Given Guaifenesin (Mucinex*) 600 mg PO BID PRN PRN Reason: CONGESTION Last Admin: 03/04/19 22:14 Dose: 600 mg Insulin Glargine (Lantus(*)) 40 units SUBCUT BEDTIME [facility] Last Admin: 03/10/19 22:27 Dose: 40 units Insulin Human Lispro (Humalog*) 0 units SUBCUT AC [facility]; Protocol Last Admin: 03/11/19 08:57 Dose: 2 units Levothyroxine Sodium (Synthroid Tab*) 200 mcg PO 0600 [facility] Last Admin: 03/11/19 05:38 Dose: 200 mcg Melatonin (Melatonin) 3 mg PO BEDTIME PRN PRN Reason: Sleep Last Admin: 03/07/19 23:59 Dose: 3 mg Ondansetron HCl (Zofran Inj*) 4 mg IV Q6H PRN PRN Reason: NAUSEA Ondansetron HCl (Zofran Odt Tab*) 4 mg SL Q6H PRN PRN Reason: NAUSEA/VOMITING Last Admin: 03/09/19 18:00 Dose: 4 mg Oxycodone/Acetaminophen (Percocet 5/325 Tab*) 1 tab PO Q6H PRN PRN Reason: PAIN - SEVERE Last Admin: 03/10/19 23:16 Dose: 1 tab Pantoprazole Sodium (Protonix Tab*) 40 mg PO DAILY [facility] Last Admin: 03/11/19 09:02 Dose: 40 mg Polyethylene Glycol/Electrolytes (Miralax*) 17 gm PO DAILY PRN PRN Reason: CONSTIPATION Last Admin: 02/25/19 09:28 Dose: 17 gm Potassium Chloride (Klor Con Er Tab*) 10 meq PO DAILY [facility] Last Admin: 03/11/19 09:02 Dose: 10 meq Sertraline HCl (Zoloft*) 50 mg PO DAILY [facility] Last Admin: 03/11/19 09:01 Dose: 50 mg Simethicone (Mylicon Tab*) 80 mg PO QID PRN PRN Reason: INDIGESTION Last Admin: 03/04/19 10:30 Dose: 80 mg Throat Lozenges (Chloraseptic Vinh*) 1 vinh MT Q6H PRN PRN Reason: SORE THROAT Last Admin: 03/04/19 22:14 Dose: 1 vinh Venlafaxine HCl (Effexor Xr Cap*) 150 mg PO DAILY [facility] Last Admin: 03/11/19 09:01 Dose: 150 mg Vital Signs - 8 hr 03/11/19 03/11/19 03/11/19 05:44 07:40 07:42 Temperature 36.4 C Pulse Rate 73 Respiratory 17 18 18 Rate Blood Pressure 122/54 (mmHg) O2 Sat by Pulse 96 Oximetry 03/11/19 07:49 Temperature Pulse Rate Respiratory 18 Rate Blood Pressure (mmHg) O2 Sat by Pulse Oximetry Oxygen Devices in Use Now: None Appearance: alert, no distress Eyes: No Scleral Icterus Ears/Nose/Mouth/Throat: Clear Oropharnyx Respiratory: Clear to Auscultation Cardiovascular: NL Sounds; No Murmurs; No JVD, RRR Abdominal: NL Sounds; No Tenderness; No Distention Neurological: Alert and Oriented x 3 Nutrition: Taking PO's Result Diagrams: 03/08/19 08:14 03/11/19 05:24 Additional Lab and Data: Laboratory Tests 03/10/19 18:30 Urine Color Yellow Ur Specific [place] 1.009 L Urine Protein 2+(100 mg/dl) A Urine Blood 1+ A Ur Leukocyte Esterase 3+ A Urine WBC (Auto) 3+(>20/hpf) A Urine Bacteria 1+ A Urine Glucose 3+(>=500 mg/dl) A Assess/Plan/Problems-Billing Assessment: 73F PMH NIDDM, CKD, PTSD, HTN, anxiety/depression who presented to the ED on from the hotel where she was living with reports that she was unable to care for herself. She is admitted to [facility] under [facility]itentiary care status. - Patient Problems (1) Neck pain Current Visit: Yes Status: Acute Priority: Medium Code(s): M54.2 - CERVICALGIA SNOMED Code(s): 82818122 Comment: -Improved, was muscle spasm -Will stop percocet PRN (2) CKD (chronic kidney disease) stage 3, GFR 30-59 ml/min Current Visit: Yes Status: Chronic Priority: Medium Code(s): N18.3 - CHRONIC KIDNEY DISEASE, STAGE 3 (MODERATE) SNOMED Code(s): 911580758 Comment: - Creatinine worsening, despite stopping ARB, diuretics - Will encourage fluid - checking FeNa, rechecking Creatinine in AM - Will have U/S kidneys and bladder r/o obstruction - Creatinine clearance likely 50% worse than baseline. (3) Anemia Current Visit: No Status: Acute Code(s): D64.9 - ANEMIA, UNSPECIFIED SNOMED Code(s): 280663796 Comment: - improved - Iron studies previously normal, suspect anemia of chronic disease 2/2 CKD (4) UTI (urinary tract infection) Current Visit: Yes Status: Acute Priority: Medium Comment: -Urine cultures pending -Will start cipro PO (5) Diabetes mellitus, type 2 Current Visit: Yes Status: Chronic Priority: Medium Comment: - A1c 7.6 2018 suggesting good control on lantus 40U daily - fingersticks not at goal - Lantus increased today Status and Disposition: Should be discharged to [facility] tomorrow if stable
[2019-03-11] MEDS: Ciprofloxacin TAB* 250 MG PO SCH ×2 (10:53→20:27)
[2019-03-11] MEDS: Enoxaparin(*) 30 MG/0.3 ML SYR SUBCUT SCH (17:15)
[2019-03-11 18:26] LABS: Urine Creatinine Concentration 39.77 mg/dL
[2019-03-11] MEDS: Ondansetron ODT TAB* 4 MG SL PRN (20:27)
[2019-03-11] MEDS ORDERED: Insulin GLARGINE(*) 1 UNITS UNIT SUBCUT SCH (21:00)
[2019-03-12] MEDS: Acetaminophen TAB* 325 MG PO PRN (01:46)
[2019-03-12] MEDS: Levothyroxine TAB* 100 MCG TAB PO SCH (06:28)
[2019-03-12 06:42] LABS: BUN/Creatinine Ratio 23.4 (8-20); Calcium 8.8 mg/dL (8.6-10.3); EGFR Non-African American 13.3 (>60)
[2019-03-12] MEDS: Insulin LISPRO* 1 UNITS UNIT SUBCUT SCH (07:34)
[2019-03-12 08:13] VITALS: BP 140/55
[2019-03-12] MEDS ORDERED: amLODIPine TAB* 5 MG PO SCH (09:00)
[2019-03-12] MEDS: Cetirizine* 10 MG TAB PO SCH (09:53)
[2019-03-12] MEDS: Pantoprazole TAB * 40 MG TAB PO SCH (09:54)
[2019-03-12] MEDS: Aspirin EC TAB* 81 MG TAB.EC PO SCH (09:54)
[2019-03-12] MEDS: Atenolol TAB* 50 MG PO SCH (09:54)
[2019-03-12] MEDS: Ciprofloxacin TAB* 250 MG PO SCH (09:54)
[2019-03-12] MEDS: Sertraline* 50 MG TAB PO SCH (09:54)
[2019-03-12] MEDS: Venlafaxine EXT RELEASE CAP* 75 MG PO SCH (09:54)
[2019-03-12] MEDS: Atorvastatin* 20 MG TAB PO SCH (09:54)
[2019-03-12] MEDS: Fluticasone NASAL SPRAY 50MCG* 16 gm SPRAY BTL BOTH NARES SCH (09:57)
--- NOTE | 2019-03-13 23:16 | DS ---
CC: Zakia Zurita MD * DISCHARGE SUMMARY: DATE OF ADMISSION: 02/09/19 DATE OF DISCHARGE: 03/12/19 PRIMARY CARE PHYSICIAN: Zakia Zurita MD. PRIMARY DIAGNOSES: 1. Mechanical fall. 2. Inability to care for self. SECONDARY DIAGNOSES: 1. Diabetes mellitus 2. 2. Chronic kidney disease. 3. History of pulmonary embolism. 4. Hypertension. 5. Subdural hematoma. 6. Depression. 7. Posttraumatic stress disorder. 8. Chronic pain. 9. Gastritis. CONSULTS: Pramod Walters MD., Psychiatry. DISCHARGE MEDICATIONS: 1. Ciprofloxacin 250 mg twice a day for 5 more days. 2. Amlodipine 5 mg daily. 3. Venlafaxine 150 mg daily. 4. Sertraline 50 mg daily. 5. Simethicone 125 mg daily. 6. Omeprazole 20 mg daily. 7. Polyethylene glycol 17 g daily. 8. Levothyroxine 200 mcg daily. 9. Glargine 50 units at bedtime. 10. Cetirizine 10 mg daily. 11. Atorvastatin 20 mg daily. 12. Aspirin 81 mg daily. 13. Atenolol 100 mg daily. HISTORY OF PRESENT ILLNESS: Ms. Montemayor is a 73-year-old woman with diabetes type 2, on insulin, PTSD, recurrent C. diff, chronic pain, and numerous admissions to this institution over the past several years, who is presenting to the emergency department after she was sent in by the hotel where she was staying. She was sent in after a fall and the staff at the hotel felt she has been unable to care for herself. Per collateral resources, the patient has been having a difficult time cleaning up after herself and there was feces all over her room in the hotel as well as an excess of possessions making it difficult for her to walk around safely. The patient states that the fall happened approximately 2 days ago and that she was just reaching for something, slipped off the bed, and could not grab onto anything. She had a difficult time having the staff help her up. Otherwise the patient has been feeling well. She denies urinary frequency, dysuria, chest pain, shortness of breath, fevers, chills, nausea, vomiting. She has 1 soft bowel movement a day and states that she has been trying to find a balance between her [id number] stool softeners and antidiarrheal agents. She feels she has reached a good balance at this point. She states her blood sugars vary between 100 and low 200s and her primary care provider has been pleased with how she is doing. The patient has not had loss of consciousness or head strike. She has had no other recent falls. She states she is active in the community. HOSPITAL COURSE: In the emergency room, the patient had a hip and pelvic x-ray, which were unremarkable. She had no significant laboratory abnormalities. She was ready to be discharged back to her hotel, but they refused to take her back, and the department of social insurance administrator was unable to take her at a homeless jail, as they have a very strong concern about her ability to care for herself in the community. As medical providers were unable to secure a safe discharge plan for this patient, the hospitalist service was asked to evaluate the patient for admission to the hospital and she was put under usp care. Throughout admission the patient expressed being stressed and depressed because of her homelessness. It was noted that the patient is on SSRI and an SNRI, and a discussion was held with the patient, but she was very hesitant to discontinue either medication. Consultation with Psychiatry was obtained. Recommendation was to contact the patient's PCP to understand why she is on 2 medications. Attempt was made to decrease dosages of sertraline during this hospitalization. However, the patient thought that she was feeling more depressed, so she was put back on 50 mg daily and her antidepressants were not changed again. The patient did have hypertension during admission, so her losartan was increased. However, she eventually required addition of hydrochlorothiazide as well. After several days on this new antihypertensive, the patient did have a slight increase in her creatinine from 2.66 on presentation to 3. She also eventually required addition of Lispro during evening meals in addition to her home glargine dose. As the patient's creatinine continued to increase slightly above 3, a decision was made to stop her losartan and diuretic and to continue to monitor her creatinine until stable. The patient's creatinine remained stable at 3.38 and by discharge her blood pressure was 122/54. One day prior to discharge, the patient began experiencing 1 day of dysuria, but denied back pain, hematuria. She reports that she has been drinking lots of water throughout her stay in the hospital. She was started on a 1-week course of ciprofloxacin and her symptoms improved. By the day of discharge a 10- point review of systems was performed and significant largely for dysthymia, otherwise negative. PHYSICAL EXAMINATION: The patient is afebrile, heart rate 73, blood pressure 122/54, respiratory rate 18, oxygen saturation 96% on room air. In general, she is a well-appearing pleasant woman, in no acute distress. She is alert and interactive. HEENT: With moist mucous membranes. Neck: Without JVD. Able to touch chin to chest. Lungs: Clear to auscultation bilaterally. Heart: Regular rate and rhythm. No murmurs, gallops or rubs. Abdomen: Soft, nontender, nondistended. No suprapubic tenderness. Extremities: Without edema. Neuro: A and O x3. DIAGNOSTIC STUDIES/LAB DATA: Hemoglobin 9.3, which has improved from her baseline, with MCV 83. Her discharge BUN/creatinine is 79/3.38. Her urine culture was with Raoultella planticola, sensitive to ciprofloxacin. Renal ultrasound with moderate bilateral renal cortical atrophy, negative for hydronephrosis. Chest x-ray with left basilar atelectasis versus consolidation. Hip and pelvic x-ray with no fracture of the left hip or pelvis noted. DISCHARGE PLAN: The patient will be discharged to [facility]. She should continue to follow up closely with her primary care physician for ongoing blood pressure monitoring and diabetes control. Of note, she is not on oral diabetes medications and these should be considered. She will remain on atenolol and amlodipine, but her losartan and diuretics were held in the context of slightly worsening renal function given that she was also referred to Nephrology on discharge. She was also given a 5-day course of ciprofloxacin to complete treatment for UTI, which was diagnosed in the hospital. The patient was given return precautions, which include, but are not limited to , decreased urine output, worsening urinary symptoms or with progression to flank pain or fever. She should eat a healthy diet, low in processed foods and low in sugar. She should resume activity as tolerated. DISPOSITION: To [facility]. CONDITION: Good. TIME SPENT: Approximately 60 minutes were spent on the discharge of this patient, more than half of which was spent with care coordination at bedside, for interview and exam. [id number]/[facility] #: [id number] [facility]
== END 2019-03-12 10:55 | disposition home or self-care (01) | DRG 555 ==
LOC: ED 11:53 → MED 15:27
PROVIDERS: ADMIT Internal Medicine; ATTEND Internal Medicine
DX: M25.552 Pain in left hip (principal); J18.9 Pneumonia, unspecified organism; N39.0 Urinary tract infection, site not specified; I13.0 Hypertensive heart and chronic kidney disease with heart failure and stage 1 through stage 4 chronic kidney disease, or unspecified chronic kidney disease; I50.32 Chronic diastolic (congestive) heart failure; E11.22 Type 2 diabetes mellitus with diabetic chronic kidney disease; N18.3 Chronic kidney disease, stage 3 (moderate); Z74.2 Need for assistance at home and no other household member able to render care; F43.10 Post-traumatic stress disorder, unspecified; F32.9 Major depressive disorder, single episode, unspecified; K21.9 Gastro-esophageal reflux disease without esophagitis; G89.29 Other chronic pain; F34.1 Dysthymic disorder; B96.89 Other specified bacterial agents as the cause of diseases classified elsewhere; D63.1 Anemia in chronic kidney disease; F41.9 Anxiety disorder, unspecified; M54.2 Cervicalgia; R30.0 Dysuria; W01.0XXA Fall on same level from slipping, tripping and stumbling without subsequent striking against object, initial encounter; Z72.89 Other problems related to lifestyle; Z73.89 Other problems related to life management difficulty; Z86.711 Personal history of pulmonary embolism; Z85.3 Personal history of malignant neoplasm of breast; Z91.81 History of falling; Y92.59 Other trade areas as the place of occurrence of the external cause; Z75.1 Person awaiting admission to adequate facility elsewhere; Z59.0 Homelessness; Z79.82 Long term (current) use of aspirin; Z79.4 Long term (current) use of insulin; Z79.891 Long term (current) use of opiate analgesic; Z79.899 Other long term (current) drug therapy; Z88.8 Allergy status to other drugs, medicaments and biological substances; Z82.5 Family history of asthma and other chronic lower respiratory diseases; Z81.2 Family history of tobacco abuse and dependence; Z87.891 Personal history of nicotine dependence; Z86.19 Personal history of other infectious and parasitic diseases
CPT/HCPCS: 36415; 71045; 76775; 80048; 80053; 81003; 81015; 82565; 82570; 83735; 84300; 84520; 85014; 85018; 85025; 85048; 85049; 87045; 87046; 87077; 87086; 87177; 87186; 87209; 87328; 87329; 87899; 99283; A9270-GY; G8978-GP-CH; G8978-GP-CI; G8978-GP-CJ; G8979-GP-CH; G8979-GP-CI; G8980-GP-CI; J1650

== ENCOUNTER 2019-05-09 11:24 | Emergency (ER) | payer MEDICARE ==
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
[2019-05-09 13:25] VITALS: BP 174/77
== END 2019-05-09 13:27 | disposition home or self-care (01) ==
LOC: ED 11:24
DX: M54.2 Cervicalgia (principal); R51 Headache; W18.2XXA Fall in (into) shower or empty bathtub, initial encounter; Y93.E1 Activity, personal bathing and showering; Y92.002 Bathroom of unspecified non-institutional (private) residence as the place of occurrence of the external cause; E11.22 Type 2 diabetes mellitus with diabetic chronic kidney disease; I12.9 Hypertensive chronic kidney disease with stage 1 through stage 4 chronic kidney disease, or unspecified chronic kidney disease; N18.3 Chronic kidney disease, stage 3 (moderate); E03.9 Hypothyroidism, unspecified; E78.00 Pure hypercholesterolemia, unspecified; K21.9 Gastro-esophageal reflux disease without esophagitis; F41.9 Anxiety disorder, unspecified; F32.9 Major depressive disorder, single episode, unspecified; Z87.891 Personal history of nicotine dependence; Z99.81 Dependence on supplemental oxygen; Z85.3 Personal history of malignant neoplasm of breast; Z90.89 Acquired absence of other organs; Z90.49 Acquired absence of other specified parts of digestive tract; Z88.5 Allergy status to narcotic agent; Z88.8 Allergy status to other drugs, medicaments and biological substances
CPT/HCPCS: 70450; 72125; 87641; 99282

== ENCOUNTER 2019-05-31 10:15 | Inpatient (IN) | payer MEDICARE ==
--- OUTSIDE RECORDS SUMMARY | 2019-05-31 13:35 | XMS REPORT | Continuity of Care Document ---
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 Problems Active Problems Provider Date Urinary tract infectious disease Corky Crawford MD Onset: 2017 Hyperosmolality and or hypernatremia Corky Crawford MD Onset: 12/27 Chronic kidney disease stage 3 Corky Crawford MD Onset: 12/27/2017 Essential hypertension Corky Crawford MD Onset: 12/27/2017 Hypothyroidism Corky Crawford MD Onset: 12/27/2017 H/O: pulmonary embolus Corky Crawford MD Onset: 12/27/2017 Type II diabetes mellitus uncontrolled Jean Carlos Lou N.PJustine Onset: 2017 Adjustment disorder with depressed mood Jean Carlos Lou N.PJustine Onset: 2017 Gastroesophageal reflux disease Jean Carlos Lou, N.P. Onset: 12/26/2017 Hyperlipidemia Jean Carlos Lou, N.P. Onset: 12/26/2017 Type 2 diabetes mellitus Jean Carlos Lou, N.P. Onset: 12/26/2017 Acute renal failure syndrome Jean Carlos Lou, N.PJustine Onset: 12/26/2017 Dehydration Jean Carlos Lou, N.P. Onset: 12/26/2017 Diabetic hyperosmolar non-ketotic state Shahrzad Davis NP Onset: 12/30/2017 Anemia Shahrzad Davis NP Onset: 12/30/2017 Unspecified Escherichia coli [E. coli] Corky Crawford MD Onset: 03/2018 as the cause of diseases classified elsewhere Constipation Corky Crawford MD Onset: 01/01/2018 Chronic kidney disease Corky Crawford MD Onset: 01/02/2018 Noncompliance with treatment Corky Crawford MD Onset: 01/02/2018 Social History Type Date Description Comments Sex Unknown ETOH Use Never used alcohol Tobacco Use Start: Unknown End: Patient is a former smoker quit 1983 Unknown Smoking Status Reviewed: 05/07/19 Patient is a former smoker quit 1983 Exercise Type/Frequency Exercises sporadically Allergies, Adverse Reactions, Alerts Active Allergies Reaction Severity Comments Date Metformin 10/24/2017 Vicodin 11/18/2017 Hydrocodone 08/21/2018 Medications Active Medications SIG Qnty Indications Ordering Provider Date Torsemide 2 by mouth one R60.9 Khloe Ramirez MD 05/07/2019 20mg Tablets time per day Fluticasone Propionate 2 sprays each Unknown nostril qd. 50mcg/Act Suspension Aspir-Low 1 by mouth every Unknown 81mg Tablets DR day Venlafaxine HCL ER 1 by mouth every Unknown 75mg day Caps ER 24HR Simethicone 3 tablets by Unknown 125mg Chewtabs mouth as needed Miralax Unknown Melatonin Unknown Lantus Unknown Imodium A-D Unknown Kaopectate Unknown Neosporin + Pain Relief Unknown Maximum Strength Robitussin 12 Hour Unknown Cough Relief Milk Of Magnesia Unknown Tums 1 tab by mouth Unknown 500mg Chewtabs four times a day as needed Mylanta Maximum as needed Unknown Strength [id number] Suspension Tylenol Extra Strength 1-2 tabs by mouth Unknown every 6 hours as 500mg Tablets needed Atorvastatin Calcium Take One Tablet Unknown 40mg Once Daily Tablets Omeprazole 1 by mouth every Unknown 20mg Capsules DR day Multiple Vitamin 1 by mouth every Unknown Tablets day Losartan 1 by mouth every Unknown Potassium/Hydrochloroth day iazide 100-25mg Tablets Levothyroxine Sodium 1 by mouth every Unknown 200mcg day Tablets Acidophilus daily Unknown Capsules Atenolol 1 by mouth once a Unknown 100mg Tablets day History Medications Torsemide 1 tab every day 90tabs R60.1 Khloe Ramirez MD 04/03/2019 - 20mg 05/07/2019 Tablets Medications Administered in Office Medication SIG Qnty Indications Ordering Provider Date Depomedrol 40MG Mark Velez MD 08/21/2018 Injection Immunizations Description No Information Available Vital Signs Date Vital Result Comment 05/07/2019 1:34pm Height 66 inches 5'6" Weight 201.00 lb Heart Rate 74 /min BP Systolic Sitting 158 mmHg right arm reg cuff BP Diastolic Sitting 84 mmHg right arm reg cuff O2 % BldC Oximetry 100 % room air BMI (Body Mass Index) 32.4 kg/m2 04/03/2019 2:37pm Height 66 inches 5'6" Weight 208.00 lb Heart Rate 104 /min BP Systolic Sitting 156 mmHg right arm reg cuff BP Diastolic Sitting 97 mmHg right arm reg cuff O2 % BldC Oximetry 99 % room air BMI (Body Mass Index) 33.6 kg/m2 Results Description No Information Available Procedures Description No Information Available Medical Devices Description No Information Available Encounters Type Date Location Provider Dx Diagnosis Office Visit 04/03/2019 [facility] Nephrology Khloe Ramirez MD I12.9 Hypertensive chronic 2:30p kidney disease w stg 1-4/unsp chr kdny N18.3 Chronic kidney disease, stage 3 (moderate) R60.1 Generalized edema Office Visit 03/12/2019 10:05a [facility] Sade Vazquez, E11.22 Type 2 diabetes Assoc,magno SERRANO mellitus w Hospitalists diabetic chronic kidney disease I10 Essential (primary) hypertension F32.9 Major depressive disorder, single episode, unspecified F43.10 Post-traumatic stress disorder, unspecified G89.29 Other chronic pain K29.70 Gastritis, unspecified, without bleeding W19.xxxA Unspecified fall, initial encounter Z74.2 Need for assist at home & no house memb able to render care Office Visit 03/11/2019 10:05a [facility] Graham Del Cid M54.2 Cervicalgia Assoc,magno Quiles M.D.,[facility] Hospitalists N18.3 Chronic kidney disease, stage 3 (moderate) D64.9 Anemia, unspecified N39.0 Urinary tract infection, site not specified E11.22 Type 2 diabetes mellitus w diabetic chronic kidney disease Office Visit 03/07/2019 10:04a [facility] Graham Del Cid M54.2 Cervicalgia magno Gifford M.D.,[facility] Hospitalists N18.3 Chronic kidney disease, stage 3 (moderate) D64.9 Anemia, unspecified N39.0 Urinary tract infection, site not specified Office Visit 03/04/2019 10:04a [facility] Monique Cerna, I10 Essential ( primary) Assocmagno MD hypertension Hospitalists N18.3 Chronic kidney disease, stage 3 (moderate) Office Visit 03/02/2019 10:03a [facility] Monique Cerna MD R29.6 Repeated falls [place], Hospitalists E03.9 Hypothyroidism, unspecified N18.3 Chronic kidney disease, stage 3 (moderate) F32.9 Major depressive disorder, single episode, unspecified E11.22 Type 2 diabetes mellitus w diabetic chronic kidney disease I10 Essential (primary) hypertension I50.32 Chronic diastolic (congestive) heart failure Z86.711 Personal history of pulmonary embolism Office Visit 02/25/2019 [facility] Flakito R03.0 Elevated 10:03a magno Gifford M.D. blood-pressure Hospitalists reading, w/o diagnosis of htn Office Visit 02/23/2019 [facility] Flakito F32.9 Major depressive 10:02a magno Gifford M.D. disorder, single Hospitalists episode, unspecified N18.3 Chronic kidney disease, stage 3 (moderate) E11.22 Type 2 diabetes mellitus w diabetic chronic kidney disease R29.6 Repeated falls I10 Essential (primary) hypertension J18.9 Pneumonia, unspecified organism Z86.711 Personal history of pulmonary embolism Office Visit 02/17/2019 10:02a [facility] Ana Maria N18.3 Chronic kidney Assoc,magno Butcher DO disease, stage 3 Hospitalists (moderate) Office Visit 02/16/2019 10:02a [facility] Ana Maria R29.6 Repeated falls magno Gifford DO Hospitalists N18.3 Chronic kidney disease, stage 3 (moderate) F32.9 Major depressive disorder, single episode, unspecified E11.22 Type 2 diabetes mellitus w diabetic chronic kidney disease Z86.711 Personal history of pulmonary embolism Office Visit 02/09/2019 10:01a [facility] Krishna E11.22 Type 2 diabetes Assoc,[facility] [place] mellitus w Hospitalists diabetic chronic kidney disease I10 Essential (primary) hypertension 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.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, recurrent Z74.1 Need for assistance with personal care Z86.711 Personal history of pulmonary embolism Office Visit 12/27/2018 2:35p [facility] Krishna N39.0 Urinary tract Assoc,[facility] [place] infection, site Hospitalists not specified D64.9 Anemia, unspecified E11.22 Type 2 diabetes mellitus w diabetic chronic kidney disease I10 Essential (primary) hypertension F43.10 Post-traumatic stress disorder, unspecified F32.9 Major depressive disorder, single episode, unspecified K21.9 Gastro-esophageal reflux disease without esophagitis K29.70 Gastritis, unspecified, without bleeding G89.4 Chronic pain syndrome E11.40 Type 2 diabetes mellitus with diabetic neuropathy, unsp Office Visit 12/26/2018 2:34p [facility] Basia Lisa, N39.0 Urinary tract Assoc,pc LAY OUT MACHINE OPERATOR infection, site Hospitalists not specified R45.851 Suicidal ideations I50.32 Chronic diastolic (congestive) heart failure N18.3 Chronic kidney disease, stage 3 (moderate) E11.22 Type 2 diabetes mellitus w diabetic chronic kidney disease I10 Essential (primary) hypertension D64.9 Anemia, unspecified E03.9 Hypothyroidism, unspecified Office Visit 12/25/2018 2:34p [facility] Basia Lisa, N39.0 Urinary tract Assoc,pc LAY OUT MACHINE OPERATOR infection, site Hospitalists not specified R45.851 Suicidal ideations I50.32 Chronic diastolic (congestive) heart failure N18.3 Chronic kidney disease, stage 3 (moderate) E11.22 Type 2 diabetes mellitus w diabetic chronic kidney disease I10 Essential (primary) hypertension D64.9 Anemia, unspecified E03.9 Hypothyroidism, unspecified Office Visit 12/24/2018 2:33p [facility] Basia Lisa, N39.0 Urinary tract Assoc,pc LAY OUT MACHINE OPERATOR infection, site Hospitalists not specified R45.851 Suicidal ideations E11.22 Type 2 diabetes mellitus w diabetic chronic kidney disease I10 Essential (primary) hypertension N18.3 Chronic kidney disease, stage 3 (moderate) D64.9 Anemia, unspecified E03.9 Hypothyroidism, unspecified Office Visit 12/23/2018 2:32p [facility] Basia Lisa, N39.0 Urinary tract Assoc,pc LAY OUT MACHINE OPERATOR infection, site Hospitalists not specified R45.851 Suicidal ideations E11.22 Type 2 diabetes mellitus w diabetic chronic kidney disease I10 Essential (primary) hypertension N18.3 Chronic kidney disease, stage 3 (moderate) D64.9 Anemia, unspecified E03.9 Hypothyroidism, unspecified Office Visit 12/22/2018 2:32p [facility] Peg A41.9 Sepsis, Assoc,[facility] Dot, unspecified Hospitalists LAY OUT MACHINE OPERATOR organism N39.0 Urinary tract infection, site not specified R45.851 Suicidal ideations N17.9 Acute kidney failure, unspecified K59.00 Constipation, unspecified E11.9 Type 2 diabetes mellitus without complications I10 Essential (primary) hypertension E03.9 Hypothyroidism, unspecified Office Visit 12/21/2018 2:31p [facility] Peg A41.9 Sepsis, Assoc,pc [facility] Doto, unspecified Hospitalists LAY OUT MACHINE OPERATOR organism N39.0 Urinary tract infection, site not specified N17.9 Acute kidney failure, unspecified K59.00 Constipation, unspecified E11.22 Type 2 diabetes mellitus w diabetic chronic kidney disease I10 Essential (primary) hypertension E03.9 Hypothyroidism, unspecified Office Visit 12/20/2018 [facility] Odalys Chase, N10 Acute pyelonephritis 2:31p Assoc, M.D. Hospitalists A41.9 Sepsis, unspecified organism E11.22 Type 2 diabetes mellitus w diabetic chronic kidney disease N18.3 Chronic kidney disease, stage 3 (moderate) I50.31 Acute diastolic (congestive) heart failure F32.9 Major depressive disorder, single episode, unspecified Assessments Date Code Description Provider 05/07/2019 N18.5 Chronic kidney disease, stage 5 Khloe Ramirez MD 05/07/2019 R60.9 Edema, unspecified Khloe Ramirez MD 05/07/2019 D63.1 Anemia in chronic kidney disease Khloe Ramirez MD 05/07/2019 I12.9 Hypertensive chronic kidney disease Khloe Ramirez MD with stage 1 through stage 4 chronic kidney disease, or unspecified chronic kidney disease 04/03/2019 I12.9 Hypertensive chronic kidney disease Khloe Ramirez MD with stage 1 through stage 4 chronic kidney disease, or unspecified chronic kidney disease 04/03/2019 N18.3 Chronic kidney disease, stage 3 Khloe Ramirez MD (moderate) 04/03/2019 R60.1 Generalized edema Khloe Ramirez MD 03/12/2019 E11.22 Type 2 diabetes mellitus with Sade Vazquez MD diabetic chronic kidney disease 03/12/2019 I10 Essential (primary) hypertension Sade Vazquez MD 03/12/2019 F32.9 Major depressive disorder, single Sade Vazquez MD episode, unspecified 03/12/2019 F43.10 Post-traumatic stress disorder, Sade Vazquez MD unspecified 03/12/2019 G89.29 Other chronic pain Sade Vazquez MD 03/12/2019 K29.70 Gastritis, unspecified, without Sade Vazquez MD bleeding 03/12/2019 W19.xxxA Unspecified fall, initial encounter Sade Vazquez MD 03/12/2019 Z74.2 Need for assistance at home and no Sade Vazquez MD other household member able to render care 03/11/2019 M54.2 Cervicalgia Graham Quiles M.D.,FACP 03/11/2019 N18.3 Chronic kidney disease, stage 3 Graham Quiles M.D., FACP (moderate) 03/11/2019 D64.9 Anemia, unspecified Graham Quiles M.D.,FACP 03/11/2019 N39.0 Urinary tract infection, site not Graham Quiles M.D., FACP specified 03/11/2019 E11.22 Type 2 diabetes mellitus with Graham Quiles M.D.,FACP diabetic chronic kidney disease 03/07/2019 M54.2 Cervicalgia Graham Quiles M.D.,FACP 03/07/2019 N18.3 Chronic kidney disease, stage 3 Graham Quiles M.D., FACP (moderate) 03/07/2019 D64.9 Anemia, unspecified Graham Quiles M.D.,FACP 03/07/2019 N39.0 Urinary tract infection, site not Graham Quiles M.D., FACP specified 03/04/2019 I10 Essential (primary) hypertension Monique Cerna MD 03/04/2019 N18.3 Chronic kidney disease, stage 3 Monique Cerna MD (moderate) 03/02/2019 R29.6 Repeated falls Monique Cerna MD 03/02/2019 E03.9 Hypothyroidism, unspecified Monique Cerna MD 03/02/2019 N18.3 Chronic kidney disease, stage 3 Monique Cerna MD (moderate) 03/02/2019 F32.9 Major depressive disorder, single Monique Cerna MD episode, unspecified 03/02/2019 E11.22 Type 2 diabetes mellitus with Monique Cerna MD diabetic chronic kidney disease 03/02/2019 I10 Essential (primary) hypertension Monique Cerna MD 03/02/2019 I50.32 Chronic diastolic (congestive) heart Monique Cerna MD failure 03/02/2019 Z86.711 Personal history of pulmonary Monique Cerna MD embolism 02/25/2019 R03.0 Elevated blood-pressure reading, Flakito Conklin M.D. without diagnosis of hypertension 02/23/2019 F32.9 Major depressive disorder, single Flakito Conklin M.D. episode, unspecified 02/23/2019 N18.3 Chronic kidney disease, stage 3 Flakito Conklin M.D. (moderate) 02/23/2019 E11.22 Type 2 diabetes mellitus with Flakito Conklin M.D. diabetic chronic kidney disease 02/23/2019 R29.6 Repeated falls Flakito Conklin M.D. 02/23/2019 I10 Essential (primary) hypertension Flakito Conklin M.D. 02/23/2019 J18.9 Pneumonia, unspecified organism Flakito Conklin M.D. 02/23/2019 Z86.711 Personal history of pulmonary Flakito Conklin M.D. embolism 02/17/2019 N18.3 Chronic kidney disease, stage 3 Ana Maria Butcher DO (moderate) 02/16/2019 R29.6 Repeated falls Ana Maria Butcher DO 02/16/2019 N18.3 Chronic kidney disease, stage 3 Ana Maria Butcher DO (moderate) 02/16/2019 F32.9 Major depressive disorder, single Ana Maria Butcher DO episode, unspecified 02/16/2019 E11.22 Type 2 diabetes mellitus with Ana Maria Butcher DO diabetic chronic kidney disease 02/16/2019 Z86.711 Personal history of pulmonary Ana Maria Butcher DO embolism 02/09/2019 E11.22 Type 2 diabetes mellitus with KEVIN De Anda diabetic chronic kidney disease 02/09/2019 I10 Essential (primary) hypertension KEVIN De Anda 02/09/2019 A04.71 Enterocolitis due to Clostridium KEVIN De Anda difficile, recurrent 02/09/2019 Z74.1 Need for assistance with personal KEVIN De Anda care 02/09/2019 Z86.711 Personal history of pulmonary KEVIN De Anda embolism 12/27/2018 N39.0 Urinary tract infection, site not KEVIN De Anda specified 12/27/2018 D64.9 Anemia, unspecified KEVIN De Anda 12/27/2018 E11.22 Type 2 diabetes mellitus with KEVIN De Anda diabetic chronic kidney disease 12/27/2018 I10 Essential (primary) hypertension KEVIN De Anda 12/27/2018 F43.10 Post-traumatic stress disorder, KEVIN De Anda unspecified 12/27/2018 F32.9 Major depressive disorder, single KEVIN De Anda episode, unspecified 12/27/2018 K21.9 Gastro-esophageal reflux disease KEVIN De Anda without esophagitis 12/27/2018 K29.70 Gastritis, unspecified, without KEVIN De Anda bleeding 12/27/2018 G89.4 Chronic pain syndrome KEVIN De Anda 12/27/2018 E11.40 Type 2 diabetes mellitus with KEVIN De Anda diabetic neuropathy, unspecified 12/26/2018 N39.0 Urinary tract infection, site not Basiaxander Gonzalez LAY OUT MACHINE OPERATOR specified 12/26/2018 R45.851 Suicidal ideations Basia Gonzalez LAY OUT MACHINE OPERATOR 12/26/2018 I50.32 Chronic diastolic (congestive) heart Basia Lisa, LAY OUT MACHINE OPERATOR failure 12/26/2018 N18.3 Chronic kidney disease, stage 3 Basia Lisa LAY OUT MACHINE OPERATOR (moderate) 12/26/2018 E11.22 Type 2 diabetes mellitus with Basia Lisa, LAY OUT MACHINE OPERATOR diabetic chronic kidney disease 12/26/2018 I10 Essential (primary) hypertension Basia Lisa, LAY OUT MACHINE OPERATOR 12/26/2018 D64.9 Anemia, unspecified Basia Lisa, LAY OUT MACHINE OPERATOR 12/26/2018 E03.9 Hypothyroidism, unspecified Basia Lisa, LAY OUT MACHINE OPERATOR 12/25/2018 N39.0 Urinary tract infection, site not Basia Lisa, LAY OUT MACHINE OPERATOR specified 12/25/2018 R45.851 Suicidal ideations Basia Lisa, LAY OUT MACHINE OPERATOR 12/25/2018 I50.32 Chronic diastolic (congestive) heart Basia Lisa, LAY OUT MACHINE OPERATOR failure 12/25/2018 N18.3 Chronic kidney disease, stage 3 Basia Lisa, LAY OUT MACHINE OPERATOR (moderate) 12/25/2018 E11.22 Type 2 diabetes mellitus with Basia Lisa, LAY OUT MACHINE OPERATOR diabetic chronic kidney disease 12/25/2018 I10 Essential (primary) hypertension Basia Lisa, LAY OUT MACHINE OPERATOR 12/25/2018 D64.9 Anemia, unspecified Basia Lisa, LAY OUT MACHINE OPERATOR 12/25/2018 E03.9 Hypothyroidism, unspecified Basia Lisa, LAY OUT MACHINE OPERATOR 12/24/2018 N39.0 Urinary tract infection, site not Basia Lisa, LAY OUT MACHINE OPERATOR specified 12/24/2018 R45.851 Suicidal ideations Basia Lisa, LAY OUT MACHINE OPERATOR 12/24/2018 E11.22 Type 2 diabetes mellitus with Basia Lisa, LAY OUT MACHINE OPERATOR diabetic chronic kidney disease 12/24/2018 I10 Essential (primary) hypertension Basia Lisa, LAY OUT MACHINE OPERATOR 12/24/2018 N18.3 Chronic kidney disease, stage 3 Basia Lisa, LAY OUT MACHINE OPERATOR (moderate) 12/24/2018 D64.9 Anemia, unspecified Basia Lisa, LAY OUT MACHINE OPERATOR 12/24/2018 E03.9 Hypothyroidism, unspecified Basia Lisa, LAY OUT MACHINE OPERATOR 12/23/2018 N39.0 Urinary tract infection, site not Basia Lisa, LAY OUT MACHINE OPERATOR specified 12/23/2018 R45.851 Suicidal ideations Basia Lisa, LAY OUT MACHINE OPERATOR 12/23/2018 E11.22 Type 2 diabetes mellitus with Basia Lisa, LAY OUT MACHINE OPERATOR diabetic chronic kidney disease 12/23/2018 I10 Essential (primary) hypertension Basia Lisa, LAY OUT MACHINE OPERATOR 12/23/2018 N18.3 Chronic kidney disease, stage 3 Basia Lisa, LAY OUT MACHINE OPERATOR (moderate) 12/23/2018 D64.9 Anemia, unspecified Basia Lisa, LAY OUT MACHINE OPERATOR 12/23/2018 E03.9 Hypothyroidism, unspecified Basia Lisa, LAY OUT MACHINE OPERATOR 12/22/2018 A41.9 Sepsis, unspecified organism Peg Kajal Doto, LAY OUT MACHINE OPERATOR 12/22/2018 N39.0 Urinary tract infection, site not Peg Kajal Doto, LAY OUT MACHINE OPERATOR specified 12/22/2018 R45.851 Suicidal ideations Peg Kajal Doto, LAY OUT MACHINE OPERATOR 12/22/2018 N17.9 Acute kidney failure, unspecified Peg Kajal Doto, LAY OUT MACHINE OPERATOR 12/22/2018 K59.00 Constipation, unspecified Peg Kajal Doto, LAY OUT MACHINE OPERATOR 12/22/2018 E11.9 Type 2 diabetes mellitus without Peg Kajal Doto, LAY OUT MACHINE OPERATOR complications 12/22/2018 I10 Essential (primary) hypertension Peg Kajal Doto, LAY OUT MACHINE OPERATOR 12/22/2018 E03.9 Hypothyroidism, unspecified Peg Kajal Doto, LAY OUT MACHINE OPERATOR 12/21/2018 A41.9 Sepsis, unspecified organism Peg Kajal Doto, LAY OUT MACHINE OPERATOR 12/21/2018 N39.0 Urinary tract infection, site not Peg Kajal Doto, LAY OUT MACHINE OPERATOR specified 12/21/2018 N17.9 Acute kidney failure, unspecified Peg Kajal Doto, LAY OUT MACHINE OPERATOR 12/21/2018 K59.00 Constipation, unspecified Peg Kajal Doto, LAY OUT MACHINE OPERATOR 12/21/2018 E11.22 Type 2 diabetes mellitus with Peg Kajal Doto, LAY OUT MACHINE OPERATOR diabetic chronic kidney disease 12/21/2018 I10 Essential (primary) hypertension Peg Kajal Doto, LAY OUT MACHINE OPERATOR 12/21/2018 E03.9 Hypothyroidism, unspecified Peg Kajal Doto, LAY OUT MACHINE OPERATOR 12/20/2018 N10 Acute pyelonephritis Odalys Chase M.D. 12/20/2018 A41.9 Sepsis, unspecified organism Odalys Chase M.D. 12/20/2018 E11.22 Type 2 diabetes mellitus with Odalys Chase M.D. diabetic chronic kidney disease 12/20/2018 N18.3 Chronic kidney disease, stage 3 Odalys Chase M.D. (moderate) 12/20/2018 I50.31 Acute diastolic (congestive) heart Odalys Chase M.D. failure 12/20/2018 F32.9 Major depressive disorder, single Odalys Chase M.D. episode, unspecified Plan of Treatment Future Appointment(s):06/07/2019 11:00 am - Khloe Ramirez MD at [facility] [id number] /16/2019 - Khloe Ramirez MDN18.5 Chronic kidney disease, stage 5Comments: increase Torsemide form 20 to 40 mg daily - referr to Vascular Surgery for AVF placementFollow up:1 moR60.9 Edema, unspecifiedNew Medication:Torsemide 20 mg - 2 by mouth one time per dayD63.1 Anemia in chronic kidney jlyrifcW53.9 Hypertensive chronic kidney disease with stage 1 through stage 4 chronic kidney disease, or unspecified chronic kidney diseaseComments:increase amlodipine to 10 mg daily Functional Status Description No Information Available Mental Status Description No Information Available Referrals Description No Information Available
--- OUTSIDE RECORDS SUMMARY | 2019-05-31 13:35 | XMS REPORT | Summary of Care ---
:1945 Author Organization [facility] Address [address] [place] [address] Care Team Providers Name Role Phone Zakia Zurita Primary Care Provider Bri Blair RN Unavailable Reason for Visit Reason Comments Follow Up 1 month follow up hupothyroid and DM Encounter Details Date Type Department Care Team Description 04/18/2019 Office Visit [facility] Zakia Zurita MD Depression, unspecified depression type (Primary Dx); Medicine [facility] Hypothyroidism, unspecified type; [address] [place] [address] Type 2 diabetes mellitus without complication, unspecified whether salvage determiner insulin use (HCC); [place] [address] Screening mammogram, encounter for; [phone] Renovascular hypertension Allergies Active Allergy Reactions Severity Noted Date Comments Heparin Dermatologic Reaction 03/11/2017 Red blotches on skin. Metformin GI Reaction 11/28/2014 diarrhea Hydrocodone-Acetaminop Hives 02/07/2009 hen Bupropion Cardiac Reaction 11/28/2014 Rapid heart documented as of this encounter (statuses as of 04/18/2019) Medications Medication Sig Dispensed Refills Start Date End Date Status Lancets Does not by Does not apply 100 Each 5 11/28/2014 Active apply Misc route. Brand:Freestyle Lite Test BID Dx 250.02 Insulin 1 Each by Does not 200 Each 5 09/02/2017 Active Syringe-Needle U-100 apply route TWICE 31G X 3/8" 0.5 ML DAILY. Dx 250.02 Does not apply Misc [place] & Syringes Inject 1 Each 100 Syringe [...] 81 PO Take by mouth. 0 Active Blood Glucose 1 Strip by Does 100 Each 11 05/17/2018 Active Monitoring Suppl not apply route (FREESTYLE LITE) THREE TIMES DAILY. Does not apply On insulin. Ok to Device use substitute brand if needed Blood Glucose 1 Device by Does 1 Device 0 05/25/2018 Active Monitor Software not apply route Does not apply DIRECTED. E11, Device insulin depend, Brand: Insurance preferred Fluticasone Furoate Take 1 INHL by 30 Each 5 06/12/2018 Active 50 MCG/ACT inhalation DAILY. Inhalation AEROSOL POWDER, BREATH ACTIVATED Insulin Pen Needle 1 Device by Does 100 Each 1 06/14/2018 Active (BD PEN NEEDLE EDSON not apply route U/F) 32G X 4 MM Does DAILY. E11.65, not apply Misc insulin dependent Glucose Blood In 1 Strip by In 100 Each 11/15/2018 Active Vitro Vitro route THREE StripIndications: TIMES DAILY. insul Type 2 diabetes depend E08.42, mellitus without brand insur complication, preferred unspecified whether residential insulin use (HCC) LANTUS 100 UNIT/ML INJECT 65 UNITS 30 mL 5 12/04/2018 Active Subcutaneous UNDER THE SKIN AT Solution BEDTIME Additional information Patient taking differently: 50 Units Subcutaneous QHS, Reported on 2018 3:02 PM Acetaminophen 500 MG Take 1,000 mg by 0 Active Oral Cap mouth EVERY EIGHT HOURS NEEDED. Polyethylene Glycol Take 17 g by 0 Active 3350 (MIRALAX PO) mouth NEEDED. Melatonin 3 MG Oral Take 3 mg by 100 Tab 3 Active Tab mouth EVERY 9 BEDTIME NEEDED (assist with sleep). venlafaxine (EFFEXOR Take 1 Cap by 90 Cap 1 Active XR) 150 MG Oral mouth DAILY. 9 CAPSULE SR 24 HRIndications: Other depression atorvastatin (LIPITOR) Take 1 Tab by 90 Tab 1 Active 20 MG Oral Tab mouth EVERY 9 BEDTIME. atenolol (TENORMIN) Take 1 Tab by 90 Tab 3 Active 100 MG Oral Tab mouth DAILY. 9 Cetirizine HCl 10 MG Take 10 mg by 0 Active Oral Cap mouth DAILY. torsemide (DEMADEX) 20 Take 20 mg by 0 Active MG Oral Tab mouth DAILY. amLodipine (NORVASC) 5 Take 1 Tab by 90 Tab 3 Active MG Oral Tab mouth DAILY. 9 levothyroxine Take 1 Tab by 90 Tab 1 Active (SYNTHROID) 200 MCG mouth BEFORE 9 Oral Tab BREAKFAST. Omeprazole delayed rel Take 20 mg by 90 Cap 3 Active cap 20 MG Oral CAPSULE mouth DAILY. 9 DELAYED RELEASE sertraline (ZOLOFT) 50 Take 1.5 Tabs by 135 Tab 1 Active MG Oral mouth DAILY. 9 TabIndications: Depression, unspecified depression type amLodipine (NORVASC) TAKE ONE TABLET 90 Tab 1 04/18/20 Discontinued (Dose 10 MG Oral BY MOUTH EVERY 02 08 Adjustment) TabIndications: DAY Essential hypertension Omeprazole delayed rel TAKE ONE CAPSULE 90 Cap 3 04/18/20 Discontinued cap 20 MG Oral CAPSULE BY MOUTH EVERY 02 08 (Reorder) DELAYED RELEASE DAY sertraline (ZOLOFT) 50 TAKE ONE TABLET 90 Tab 1 04/18/20 Discontinued MG Oral BY MOUTH EVERY 02 08 (Reorder) TabIndications: DAY Depression, unspecified depression type atenolol (TENORMIN) 25 Take 1 Tab by 30 Tab 2 04/18/20 Discontinued MG Oral Tab mouth DAILY. 9 levothyroxine Take 1 Tab by 90 Tab 0 04/18/20 Discontinued ( Dose (SYNTHROID) 200 MCG mouth BEFORE 02 08 Adjustment) Oral TabIndications: BREAKFAST. Hypothyroidism, unspecified type Levothyroxine Sodium Take 100 mcg by 0 04/18/20 Discontinued 100 MCG Oral Cap mouth EVERY MORNING. levothyroxine Take 200 mcg by 0 04/18/20 Discontinued (SYNTHROID) 200 MCG mouth BEFORE (Reorder) Oral Tab BREAKFAST. amLodipine (NORVASC) 5 Take 5 mg by 0 04/18/20 Discontinued MG Oral Tab mouth DAILY. 19 (Reorder) sertraline (ZOLOFT) 50 Take 1 Tab by 90 Tab 1 04/18/20 Discontinued MG Oral mouth DAILY. 9 19 (Reorder) TabIndications: Depression, unspecified depression type documented as of this encounter (statuses as of 04/18/2019) Active Problems Problem Noted Date Mild depression 09/07/2018 Essential hypertension 09/07/2018 Acute on chronic congestive heart failure 08/18/2018 Pulmonary embolism 03/11/2017 Overview: Provoked pulmonary embolism 2016 Should not be on salvage determiner anticoagulation Severe nonproliferative diabetic retinopathy with macular [...] lymph node T1 N0M0 With radiation at [facility] - follows Dr Jaeger / Dano - armidex stopped after one month 07/14 - secondary to arthritis CA. 27-29 + 62 documented as of this encounter (statuses as of 04/18/2019) Resolved Problems Problem Noted Date Resolved Date Type 2 diabetes mellitus without complication 03/20/2015 11/02/2016 HTN (hypertension) 03/11/2009 Overview: Replaced inactive diagnosis documented as of this encounter (statuses as of 04/18/2019) Immunizations Name Administration Dates Next Due Influenza [...] Sign Reading Time Taken Comments Blood Pressure 204/100 04/18/2019 1:03 PM EST Pulse 91 04/18/2019 1:03 PM EST Temperature - - Respiratory Rate - - Oxygen Saturation 92% 04/18/2019 1:03 PM EST Inhaled Oxygen Concentration - - Weight 91.2 kg (201 lb) 04/18/2019 1:03 PM EST Height 167.6 cm (5' 6") 04/18/2019 1:03 PM EST Body Mass Index 32.44 04/18/2019 1:03 PM EST documented in this encounter Patient Instructions Patient InstructionsZakia Zurita MD - 04/18/2019 1:20 PM ESTPlan Eat comfortably - dont over eat Do not push fluids - You are on a diuretic - Increase zoloft ( sertraline ) 75 mg - documented in this encounter Progress Notes Zakia Zurita MD - 04/18/2019 1:20 PM EST NAME:Kat Montemayor 1945: 1945 ENC Date: 04/18/2019 CC: Chief Complaint Patient presents with Follow Up 1 month follow up hupothyroid and DM Kat Montemayor is a 73-y.o. female now living at [facility] followup for diabetes / renal insufficiency - has seen jet inspector in this interval / hypothyroid -taking 200 mcg daily Diarrhea / depression Feeling tired - Walking as can at at [facility] (using walker) Renal insufficiency - Creatinine 2.8 in hospital - Was 3.4 repeated at [facility] [place] (ordered by jet inspector ) - has seen jet inspector and was started on torsemide around that time - - Blood work showed potassium of 4.4. Ultrasound done [facility] shows bilateral renal atrophy - No consultation from jet inspector seen by me to date- Blood pressure noted to be high today but has been lower previously - 3. depression- Feels despair at 3 am about her current situation - is taking antidepressant medicaiton - disucssed this and will increase zoloft to 75 mg 4. Diarrhea is improved - Thinks it has to do with what and how much eats- ( eating much less now) 5. Diabetes - Has been skipping breakfast / lunch - HgA1C 6.9 ! [facility] 5. Anemia - persistent - No evidence of bleeding- Likely sec to renal problem - may need more investiagation - Current Outpatient Medications Medication Sig Acetaminophen 500 MG Oral Cap Take 1,000 mg by mouth EVERY EIGHT HOURS NEEDED. amLodipine (NORVASC) 5 MG Oral Tab Take 1 Tab by mouth DAILY. ASPIRIN 81 PO Take by mouth. atenolol (TENORMIN) 100 MG Oral Tab Take 1 Tab by mouth DAILY. atorvastatin (LIPITOR) 20 MG Oral Tab Take 1 Tab by mouth EVERY BEDTIME. Blood Glucose Monitor Software Does not apply Device 1 Device by Does not apply route DIRECTED. E11, insulin depend, Brand: Insurance preferred Blood Glucose Monitoring Suppl (FREESTYLE LITE) Does not apply Device 1 Strip by Does not apply route THREE TIMES DAILY. On insulin. Ok to use substitute brand if needed Cetirizine HCl 10 MG Oral Cap Take 10 mg by mouth DAILY. Fluticasone Furoate 50 MCG/ACT Inhalation AEROSOL POWDER, BREATH ACTIVATED Take 1 INHL by inhalation DAILY. Glucose Blood In Vitro Strip 1 Strip by In Vitro route THREE TIMES DAILY. insul depend E08.42, brand insur preferred Insulin Pen Needle (BD PEN NEEDLE EDSON U/F) 32G X 4 MM Does not apply Misc 1 Device by Does not apply route DAILY. E11.65, insulin dependent Insulin Syringe-Needle U-100 31G X 3/8" 0.5 ML Does not apply Misc 1 Each by Does not apply route TWICE DAILY. Dx 250.02 Lancets Does not apply Misc by Does not apply route. Brand:Freestyle Lite Test BID Dx 250.02 LANTUS 100 UNIT/ML Subcutaneous Solution INJECT 65 UNITS UNDER THE SKIN AT BEDTIME (Patient taking differently: Inject 50 Units beneath the skin EVERY BEDTIME.) levothyroxine (SYNTHROID) 200 MCG Oral Tab Take 1 Tab by mouth BEFORE BREAKFAST. Melatonin 3 MG Oral Tab Take 3 mg by mouth EVERY BEDTIME NEEDED ( assist with sleep). [place] [employer] Syringes Does not apply Misc Inject 1 Each beneath the skin TWICE DAILY. 1/2cc 30gX5/8 Dx Z79.4 Omeprazole delayed rel cap 20 MG Oral CAPSULE DELAYED RELEASE Take 20 mg by mouth DAILY. Polyethylene Glycol 3350 (MIRALAX PO) Take 17 g by mouth NEEDED. sertraline (ZOLOFT) 50 MG Oral Tab Take 1.5 Tabs by mouth DAILY. Simethicone 125 MG Oral Chew Tab Take 1 Tab by mouth FOUR TIMES DAILY NEEDED (gas). torsemide (DEMADEX) 20 MG Oral Tab Take 20 mg by mouth DAILY. venlafaxine (EFFEXOR XR) 150 MG Oral CAPSULE SR 24 HR Take 1 Cap by mouth DAILY. No current facility-administered medications for this visit. 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 27-29 + 62 DM (diabetes mellitus) ([facility]) Care plan done TCM Statement. Review of [...] standard drinks Drug use: No OBJECTIVE: BP (!) 204/100 | Pulse 91 | Ht 5' 6" (1.676 m) | Wt 201 lb (91.2 kg) | SpO2 92% | BMI 32.44 kg/m . Heent neg Lungs Clear CV rrr Abd soft, nontender, no organomegaly Ext 2+ edema; no lesions; pulses intact Neuro: intellect intact ; motor including gait unremarkable A/P ICD-9-CM ICD-10-CM 1. Depression, unspecified depression type 311 F32.9 sertraline (ZOLOFT) 50 MG Oral Tab DISCONTINUED: sertraline (ZOLOFT) 50 MG Oral Tab 2. Hypothyroidism, unspecified type 244.9 E03.9 3. Type 2 diabetes mellitus without complication, unspecified whether residential insulin use (HCC) 250.00 E11.9 4. Screening mammogram, encounter for V76.12 Z12.31 MAMMO SCREENING TOMOSYNTHESIS BILATERAL 5. Renovascular hypertension 405.91 I15.0 Blood pressure higher than see previously despite addition of torsemide- do not want to increase amlodipine since already has 2 edema - Will not change medication today- But will contact jet inspector and discuss - Addendum - Spoke with Dr Jaquez- who did not see the patient - but clark give my number to Dr Eduardo - who has Suggested consider clonidine - but will see what blood pressure Dr Gifford got at her appointment and consider - further Patient Instructions Plan Eat comfortably - dont over eat Do not push fluids - You are on a diuretic - Increase zoloft ( sertraline ) 75 mg - AUTHOR: Zakia Zurita MD 18:53 04/18/2019 documented in this encounter Plan of Treatment Date Type Specialty Care Team Description 05/29/2019 Office Visit Internal Medicine Zakia Zurita MD [address] [place] [address] Name Type Priority Associated Diagnoses Order Schedule MAMMO SCREENING Imaging Routine Screening mammogram, Expected: TOMOSYNTHESIS BILATERAL encounter for 04/18/2019, Expires: 07/16/2020 Health Maintenance Due Date Last Done Comments MAMMOGRAM (SCREENING) 02/25/2016 02/24/2015, 08/06/2013, 01/03/2012, Additional history exists Colonoscopy 12/22/2016 12/23/2011, 12/16/2011 (Previously completed), 10/28/2010 (Postponed) Diabetic Eye Exam 11/02/2017 11/02/2016, 11/02/2016, 11/02/2016, Additional history exists URINE MICROALBUMIN 08/31/2018 08/31/2017, 11/28/2014, 01/05/2010 FALL RISK ASSESSMENT 05/12/2019 05/12/2018, 05/12/2018 FOOT EXAM 05/12/2019 05/12/2018, 05/12/2018, 03/13/2015, Additional history exists HEMOGLOBIN A1C 08/04/2019 02/03/2019, 12/21/2018, 10/12/2018, Additional history exists DEPRESSION SCREENING 10/13/2019 10/12/2018 OSTEOPOROSIS SCREENING 03/23/2020 03/23/2010, 03/23/2010 LIPID DISORDER SCREENING 04/11/2020 04/11/2019, 02/03/2019, 10/12/2018, Additional history exists ZOSTER IMMUNIZATION SERIES 04/18/2020 Postponed from (1 of 2) 12/01/1993 (Vaccine not available) PNEUMOCOCCAL 65+YRS Completed 02/25/2016, 01/12/2010 INFLUENZA VACCINE [...] Type Problems Progress Blood Pressure Blood Pressure 204/100 No Rossy, < 140/90 (04/18/2019 Bri, 1:03 PM EST) RN Note: This is an individualized treatment (blood pressure) goal for Kat Montemayor: Displayed above (on the left) is your goal for blood pressure control. Your most recent blood pressure is also shown above, on the right. You should try to achieve blood pressures that are lower than your goal listed above (on the left). Weight increase vs. 18 mo min CHF 5.4 (04/18/2019 1:03 PM EST) No Zakia Zurita MD (lbs) < 5 [...] < 7.0 Diabetes 6.9 (02/03/2019 11:10 AM Bri Horvath RN EDT) Note: This is an individualized treatment (diabetes control, HgbA1C) goal for Kat Montemayor: Displayed above is your progress towards your HgbA1C goal. Your goal is shown above (on the left); your most recent HgbA1C is shown on the right. Note that lower numbers are better. Weight loss vs. 18 mo Lifestyle 14.6 (04/18/2019 1:03 PM No Naila Blair RN max (lbs) >= 10 EST) Note: This is an individualized lifestyle goal [...] and any After Visit Summaries. Consume a go-dticl-kbgw diet Lifestyle No Zakia Zurita MD Note: [...] ongoing basis. Check your weight daily Self-management Zakia Mcneal MD Note: This is an individualized self-management goal for Kat Montemayor: Please check your weight daily. Refer to the accompanying CHF treatment goal and call your doctor immediately for further instructions on how to respond to unexpected weight gain. documented as of this encounter Results Not on filedocumented in this encounter Visit Diagnoses Diagnosis Depression, unspecified depression type - Primary Hypothyroidism, unspecified type Type 2 diabetes mellitus without complication, unspecified whether residential insulin use (HCC) Screening mammogram, encounter for Renovascular hypertension Secondary renovascular hypertension, unspecified documented in this encounter
--- OUTSIDE RECORDS SUMMARY | 2019-05-31 13:35 | XMS REPORT | Continuity of Care Document ---
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 50mcg/Act Suspension Aspir-Low 1 by mouth every Unknown 81mg Tablets DR day Venlafaxine HCL ER 1 by mouth every Unknown 75mg day Caps ER 24HR Simethicone 3 tablets by Unknown 125mg mouth as needed Chewtabs Miralax Unknown Melatonin Unknown Lantus Unknown Imodium A-D Unknown Kaopectate Unknown Neosporin + Pain Unknown Relief Maximum Strength Robitussin 12 Hour Unknown Cough Relief Milk Of Magnesia Unknown Tums 1 tab by mouth Unknown 500mg Chewtabs four times a day as needed Mylanta Maximum as needed Unknown Strength [id number]/[id number] Suspension Tylenol Extra Strength 1-2 tabs by Unknown mouth every 6 500mg Tablets hours as needed Atorvastatin Calcium Take One Tablet Unknown 40mg Once Daily Tablets Omeprazole 1 by mouth every Unknown 20mg Capsules day DR Multiple Vitamin 1 by mouth every Unknown Tablets day Losartan 1 by mouth every Unknown Potassium/Hydrochlorot day hiazide 100-25mg Tablets Levothyroxine Sodium 1 by mouth every Unknown day 200mcg Tablets Acidophilus daily Unknown Capsules Atenolol 1 by mouth once Unknown 100mg Tablets a day Medications Administered in Office Medication SIG Qnty Indications Ordering Provider Date Depomedrol 40MG Mark Velez MD 08/21/2018 Injection Immunizations Description No Information Available Vital Signs Date Vital Result Comment 04/03/2019 2:37pm Height 66 inches 5'6" Weight 208.00 lb Heart Rate 104 /min BP Systolic Sitting 156 mmHg right arm reg cuff BP Diastolic Sitting 97 mmHg right arm reg cuff O2 % BldC Oximetry 99 % room air BMI (Body Mass Index) 33.6 kg/m2 08/21/2018 2:49pm Height 66 inches 5'6" Weight 208.00 lb Heart Rate 80 /min BP Systolic 122 mmHg BP Diastolic 60 mmHg Respiratory Rate 18 /min Pain Level 10 BMI (Body Mass Index) 33.6 kg/m2 Results Description No Information Available Procedures Description No Information Available Medical Devices Description No Information Available Encounters Type Date Location Provider Dx Diagnosis Office Visit 03/11/2019 [facility] Graham Quiles, M54.2 Cervicalgia 10:05a magno Gifford M.D.,FACP N18.3 Chronic kidney disease, stage 3 (moderate) D64.9 Anemia, unspecified N39.0 Urinary tract infection, site not specified E11.22 Type 2 diabetes mellitus w diabetic chronic kidney disease Office Visit 03/07/2019 10:04a [facility] Graham Del Cid M54.2 Cervicalgia magno Gifford M.D.,FACP Hospitalists N18.3 Chronic kidney disease, stage 3 (moderate) D64.9 Anemia, unspecified N39.0 Urinary tract infection, site not specified Office Visit 03/04/2019 10:04a [facility] Monique Cerna, I10 Essential ( primary) Assocmagno MD hypertension Hospitalists N18.3 Chronic kidney disease, stage 3 (moderate) Office Visit 03/02/2019 10:03a [facility] Monique Cerna MD R29.6 Repeated falls Assmagno portillo Hospitalists E03.9 Hypothyroidism, unspecified N18.3 Chronic kidney disease, stage 3 (moderate) F32.9 Major depressive disorder, single episode, unspecified E11.22 Type 2 diabetes mellitus w diabetic chronic kidney disease I10 Essential (primary) hypertension I50.32 Chronic diastolic (congestive) heart failure Z86.711 Personal history of pulmonary embolism Office Visit 02/25/2019 Dante Fraga R03.0 Elevated 10:03a magno Gifford M.D. blood-pressure Hospitalists reading, w/o diagnosis of htn Office Visit 02/23/2019 Dante Fraga F32.9 Major depressive 10:02a magno Gifford M.D. disorder, single Hospitalists episode, unspecified N18.3 Chronic kidney disease, stage 3 (moderate) E11.22 Type 2 diabetes mellitus w diabetic chronic kidney disease R29.6 Repeated falls I10 Essential (primary) hypertension J18.9 Pneumonia, unspecified organism Z86.711 Personal history of pulmonary embolism Office Visit 02/17/2019 10:02a [facility] Ana Maria N18.3 Chronic kidney Assoc,magno Butcher DO disease, stage 3 Hospitalists (moderate) Office Visit 02/16/2019 10:02a 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 Krishna N39.0 Urinary tract Assoc,KEVIN May infection, site Hospitalists not specified D64.9 Anemia, unspecified E11.22 Type 2 diabetes mellitus w diabetic chronic kidney disease I10 Essential (primary) hypertension F43.10 Post-traumatic stress disorder, unspecified F32.9 Major depressive disorder, single episode, unspecified K21.9 Gastro-esophageal reflux disease without esophagitis K29.70 Gastritis, unspecified, without bleeding G89.4 Chronic pain syndrome E11.40 Type 2 diabetes mellitus with diabetic neuropathy, unsp Office Visit 12/26/2018 2:34p 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 Basia Lisa, N39.0 Urinary tract Assoc,pc 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 infection, site Hospitalists not specified R45.851 Suicidal ideations I50.32 Chronic diastolic (congestive) heart failure N18.3 Chronic kidney disease, stage 3 (moderate) E11.22 Type 2 diabetes mellitus w diabetic chronic kidney disease I10 Essential (primary) hypertension D64.9 Anemia, unspecified E03.9 Hypothyroidism, unspecified Office Visit 12/24/2018 2:33p [facility] Basia Lisa, N39.0 Urinary tract Assoc,pc 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 infection, site Hospitalists not specified R45.851 Suicidal ideations E11.22 Type 2 diabetes mellitus w diabetic chronic kidney disease I10 Essential (primary) hypertension N18.3 Chronic kidney disease, stage 3 (moderate) D64.9 Anemia, unspecified E03.9 Hypothyroidism, unspecified Office Visit 12/23/2018 2:32p [facility] Basia Lisa, N39.0 Urinary tract Assoc,pc 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 infection, site Hospitalists not specified R45.851 Suicidal ideations E11.22 Type 2 diabetes mellitus w diabetic chronic kidney disease I10 Essential (primary) hypertension N18.3 Chronic kidney disease, stage 3 (moderate) D64.9 Anemia, unspecified E03.9 Hypothyroidism, unspecified Office Visit 12/22/2018 2:32p [facility] Peg A41.9 Sepsis, Assoc,pc Kajal Doto, unspecified Hospitalists 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 organism N39.0 Urinary tract infection, site not specified R45.851 Suicidal ideations N17.9 Acute kidney failure, unspecified K59.00 Constipation, unspecified E11.9 Type 2 diabetes mellitus without complications I10 Essential (primary) hypertension E03.9 Hypothyroidism, unspecified Office Visit 12/21/2018 2:31p [facility] Peg A41.9 Sepsis, Assoc,pc Kajal Kunz, unspecified Hospitalists 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 organism N39.0 Urinary tract infection, site not specified N17.9 Acute kidney failure, unspecified K59.00 Constipation, unspecified E11.22 Type 2 diabetes mellitus w diabetic chronic kidney disease I10 Essential (primary) hypertension E03.9 Hypothyroidism, unspecified Office Visit 12/20/2018 [facility] Odalys Salvatore, N10 Acute pyelonephritis 2:31p Assoc,magno Cohen Hospitalists A41.9 Sepsis, unspecified organism E11.22 Type 2 diabetes mellitus w diabetic chronic kidney disease N18.3 Chronic kidney disease, stage 3 (moderate) I50.31 Acute diastolic (congestive) heart failure F32.9 Major depressive disorder, single episode, unspecified Assessments Date Code Description Provider 04/03/2019 I12.9 Hypertensive chronic kidney disease Khloe Ramirez MD with stage 1 through stage 4 chronic kidney disease, or unspecified chronic kidney disease 04/03/2019 N18.3 Chronic kidney disease, stage 3 Khloe Ramirez MD (moderate) 04/03/2019 R60.1 Generalized edema Khloe Ramirez MD 03/11/2019 M54.2 Cervicalgia Graham Quiles M.D.,FACP 03/11/2019 [...] Urinary tract infection, site not Basiaxander Gonzalez 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 specified 12/26/2018 R45.851 Suicidal ideations Basia Gonzalez 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 12/26/2018 I50.32 Chronic diastolic (congestive) heart Basia Lisa, 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 failure 12/26/2018 N18.3 Chronic kidney disease, stage 3 Basia Lisa 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 (moderate) 12/26/2018 E11.22 Type 2 diabetes mellitus with Basia Lisa, 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 diabetic chronic kidney disease 12/26/2018 I10 Essential (primary) hypertension Basia Lisa, 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 12/26/2018 D64.9 Anemia, unspecified Basia Lisa, 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 12/26/2018 E03.9 Hypothyroidism, unspecified Basia Lisa, 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 12/25/2018 N39.0 Urinary tract infection, site not Basia Lisa, 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 specified 12/25/2018 R45.851 Suicidal ideations Basia Lisa, 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 12/25/2018 I50.32 Chronic diastolic (congestive) heart Basia Lisa, 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 failure 12/25/2018 N18.3 Chronic kidney disease, stage 3 Basia Lisa, 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 (moderate) 12/25/2018 E11.22 Type 2 diabetes mellitus with Basia Lisa, 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 diabetic chronic kidney disease 12/25/2018 I10 Essential (primary) hypertension Basia Lisa, 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 12/25/2018 D64.9 Anemia, unspecified Basia Lias, 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 12/25/2018 E03.9 Hypothyroidism, unspecified Basia Lisa, 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 12/24/2018 N39.0 Urinary tract infection, site not Basia Lisa, 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 specified 12/24/2018 R45.851 Suicidal ideations Basia Lisa, 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 12/24/2018 E11.22 Type 2 diabetes mellitus with Basia Lisa, 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 diabetic chronic kidney disease 12/24/2018 I10 Essential (primary) hypertension Basia Lisa, 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 12/24/2018 N18.3 Chronic kidney disease, stage 3 Basia Lisa, 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 (moderate) 12/24/2018 D64.9 Anemia, unspecified Basia Lisa, 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 12/24/2018 E03.9 Hypothyroidism, unspecified Basia Lisa, 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 12/23/2018 N39.0 Urinary tract infection, site not Basia Lisa, 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 specified 12/23/2018 R45.851 Suicidal ideations Absia Lisa, 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 12/23/2018 E11.22 Type 2 diabetes mellitus with Basia Lisa, 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 diabetic chronic kidney disease 12/23/2018 I10 Essential (primary) hypertension Basia Lisa, 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 12/23/2018 N18.3 Chronic kidney disease, stage 3 Basia Lisa, 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 (moderate) 12/23/2018 D64.9 Anemia, unspecified Basia Lisa, 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 12/23/2018 E03.9 Hypothyroidism, unspecified Basia Lisa, 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 12/22/2018 A41.9 Sepsis, unspecified organism Peg Kajal Doto, 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 12/22/2018 N39.0 Urinary tract infection, site not Peg Kajal Doto, 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 specified 12/22/2018 R45.851 Suicidal ideations Peg Kajal Doto, 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 12/22/2018 N17.9 Acute kidney failure, unspecified Peg Kajal Doto, 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 12/22/2018 K59.00 Constipation, unspecified Peg Kajal Doto, 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 12/22/2018 E11.9 Type 2 diabetes mellitus without Peg Kajal Doto, 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 complications 12/22/2018 I10 Essential (primary) hypertension Peg Kajal Doto, 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 12/22/2018 E03.9 Hypothyroidism, unspecified Peg Kajal Doto, 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 12/21/2018 A41.9 Sepsis, unspecified organism Peg Kajal Doto, 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 12/21/2018 N39.0 Urinary tract infection, site not Peg Kajal Doto, 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 specified 12/21/2018 N17.9 Acute kidney failure, unspecified Peg Kajal Doto, 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 12/21/2018 K59.00 Constipation, unspecified Peg Kajal Doto, 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 12/21/2018 E11.22 Type 2 diabetes mellitus with Peg Kajal Doto, 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 diabetic chronic kidney disease 12/21/2018 I10 Essential (primary) hypertension Peg Kajal Doto, 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 12/21/2018 E03.9 Hypothyroidism, unspecified Peg Kajal Doto, 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 12/20/2018 N10 Acute pyelonephritis Odalys Chase M.D. [...] M.D. episode, unspecified Plan of Treatment Future Appointment(s):05/03/2019 2:00 pm - Khloe Ramirez MD at [id number] /12/2019 - Khloe Ramirez MDI12.9 Hypertensive chronic kidney disease with stage 1 through stage 4 chronic kidney disease, or unspecified chronic kidney diseaseFollow up:1 month with labsN18.3 Chronic kidney disease, stage 3 ( moderate)R60.1 Generalized edemaNew Medication:Torsemide 20 mg - 1 tab every day Functional Status Description No Information Available Mental Status Description No Information Available Referrals Description No Information Available
--- OUTSIDE RECORDS SUMMARY | 2019-05-31 13:35 | XMS REPORT | Continuity of Care Document ---
:1945 External Reference #:[id number] Author Name Omar Ellison M.D. Address [facility]. 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 Onset: 12/08/2018 Social History Type Date Description Comments Sex Unknown ETOH Use Denies alcohol use Tobacco Use Start: Unknown Patient has never smoked Smoking Status Reviewed: 04/13/19 Patient has never smoked Allergies, Adverse Reactions, [...] Information Available Procedures Date Code Description Status 04/13/2019 78036 Ophthalmic Biometry By Partial Coherence Interferometry Completed W/Intra 04/13/2019 62437 Eye Exam Est Intermediate Completed 02/05/2019 20485 Ophthalmic Biometry By Partial Coherence Interferometry Completed W/Intra 02/05/2019 24271 Eye Exam Est Intermediate Completed 01/24/2019 19222 Iridotomy/Iredectomy By Laser Surgery Completed 01/17/2019 46367 Iridotomy/Iredectomy By Laser Surgery Completed 12/08/2018 52783 Gonioscopy Completed 12/08/2018 83635 Eye Exam New Intermediate Completed Medical Devices Description No Information Available Encounters Description No Information Available Assessments Date Code Description Provider 04/13/2019 H25.13 Age-related nuclear cataract, bilateral Omar Ellison M.D. 04/13/2019 H40.033 Anatomical narrow angle, bilateral Omar Ellison M.D. 02/05/2019 E11.9 Type 2 diabetes mellitus without Omar Ellison M.D. complications 02/05/2019 H25.13 Age-related nuclear cataract, bilateral Omar Ellison M.D. 01/24/2019 H40.032 Anatomical narrow angle, left eye Omar Ellison M.D. 01/17/2019 H40.031 Anatomical narrow angle, right eye Omar Ellison M.D. 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 Plan of Treatment 04/13/2019 - Omar Ellison M.D.H25.13 Age-related nuclear cataract, bilateralComments:Risks, benefits and alternatives to cataract extraction and posterior chamber intraocular lens placement explained, understood and accepted including but not limited to: re-operation, infection, retinal detachment, glaucoma, bleeding in the eye, retained lens material, corneal or macular edema , need for glasses, poor vision and other.Follow up:Schedule patient for the next available cataract surgery date.H40.033 Anatomical narrow angle, bilateral Functional Status Description No Information Available Mental Status Description No Information Available Referrals Description No Information Available
[2019-05-31] MEDS ORDERED: Dextrose 50% VIAL 50 ml IV PUSH PRN (14:45)
[2019-05-31] MEDS ORDERED: Melatonin 3 MG TAB PO PRN (14:46)
[2019-05-31] MEDS ORDERED: Polyethylene Glycol 3350* 17 GM PACKET PO PRN (14:46)
[2019-05-31] MEDS ORDERED: hydrALAZINE IV* 20 MG/ML VIAL IV SLOW PU PRN (15:19)
--- NOTE | 2019-05-31 15:37 | CONS ---
CONSULTATION NOTE: ADDENDUM: ATTENDING ORTHOPEDIC PROVIDER: Dr. Kevin Hahn. JOHNATHAN PERDUE, KEVIN [id number]/CPS #: [id number] MTDD
[2019-05-31] MEDS ORDERED: Perflutren Lipid Microsphere* 3 ML VIAL ONE (15:44)
[2019-05-31] MEDS ORDERED: Enoxaparin(*) 30 MG/0.3 ML SYR SUBCUT SCH (16:00)
[2019-05-31] MEDS: Morphine INJ* 4 MG/ML 1 ML SYRINGE (NEW SYRINGE VERSION) IV PRN (16:20)
[2019-05-31] MEDS: NS 0.9% 1000 ML** 1,000 ML IV SCH (16:20)
--- NOTE | 2019-05-31 16:35 | CONS ---
CONSULTATION REPORT: DATE OF CONSULT: 05/31/19 ADDENDUM: ATTENDING ORTHOPEDIC PROVIDER: Dr. Kevin Hahn. PRIMARY CARE PROVIDER: Dr. Zakia Zurita. CHIEF COMPLAINT: Right femoral neck fracture. HISTORY OF PRESENT ILLNESS: The patient is a 73-year-old female. She presented to [facility] on transfer from [facility] where she has been since 05/28/19, where she has been treated for UTI, and having intractable right hip pain with identification of femoral neck fracture on MRI. CT and x-ray reportedly did not clearly show this fracture. Once the fracture was identified, transfer to [facility] was determined. Prior to transfer, also identified that she has new onset pneumonia as of , received first dose of antibiotics prior to transfer. She has new oxygen requirements. Upon presentation, complains of coughing as well as pleuritic chest pain. Has a hx of frequent falls, 2 falls in the past 3 days with innumerable falls in the past month. These falls are not associated with prodromal symptoms and do not seem to be mechanical in nature. Without warning, she just falls to the ground. She lives at the [facility], completes activities of daily living on her own. Today, her right hip is very painful with any movement. She is comfortable when she is at rest in bed. Pain is described as sharp and severe without any radiation. She also has pain of the right ankle She has had anesthesia in the past without any known adverse reactions. PAST MEDICAL HISTORY: Diabetes type 2, chronic kidney disease, history of pulmonary embolism, hypertension, subdural hematoma, breast cancer, depression, PTSD, recurrent gastritis, GERD, chronic pain, recurrent C. diff which is currently in remission. MEDICATIONS: Med rec not yet done. Nursing is currently entering this. ALLERGIES: BUPROPION, HYDROCODONE, METFORMIN, HEPARIN. HEPARIN causing a diffuse rash. FAMILY HISTORY: Both parents of COPD after heavy smoking. SOCIAL HISTORY: The patient lives at [facility]. She completes her activities of daily living on her own. She walks with a walker at baseline. She uses [employer] to get out of her home. The patient quit smoking in 1983. She uses marijuana each night to go to sleep, though she has been unable to obtain any, so she has not been using any in the past several weeks. No alcohol abuse. 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 She is not . She has no children. REVIEW OF SYSTEMS: General: Positive for UTI and pneumonia. No feeling of fever or chills. HEENT: Positive for history of subdural hematoma. No current headache. The patient does report confusion and frequent falls, that she is concerned she may have intracranial pathology again. Cardiac: Confirms chest pain that is pleuritic in nature and reproducible when the patient presses on it. No history of OR. Respiratory: Positive for shortness of breath, positive for cough and positive for pleuritic chest pain. GI: Negative for nausea, vomiting, diarrhea, abdominal pain. Does have history of recurrent C. diff. : Positive for current UTI for which she has been treated. Musculoskeletal: Positive for pain of the right hip as well as the right foot. Neuro: Denies any numbness, tingling in bilateral upper and lower extremities. Hematology: Positive for history of PE. Positive for history of subdural hematoma. PHYSICAL EXAM: Temperature 95.1, pulse rate 82, respiratory rate 18, oxygen saturation 93% on 4 L of oxygen, blood pressure 198/98. General: No acute distress. HEENT: Head: Normocephalic, atraumatic. Extraocular movements intact. Respiratory: On 4 L of oxygen with good air exchange. Cardiac: S1, S2. Abdomen: Soft, nontender. No guarding. No rigidity. Musculoskeletal: Bilateral upper extremities and left lower extremity; skin envelope intact, nontender to palpation. Able to flex and extend all joints without pain. Right lower extremity; skin envelope intact, tender over the lateral hip as well as the lateral malleolus. Able to flex and extend MTPs, ankle, and knee without any pain. Pain with any f/e or log roll at the hip. Neuro: Sensation is intact to light touch bilateral lower extremities. Vascular: DP 2+ bilaterally. DIAGNOSTIC STUDIES: Positive for right femoral neck fracture. ASSESSMENT: Right femoral neck fracture. We will x-ray right ankle to rule out lateral malleolus fracture. PLAN: The patient needs to be on bedrest. She needs to be nonweightbearing. She will likely need cannulated screws. She needs to have medical optimization. She should be n.p.o. at midnight. Utilize SCDs. Hold chemical DVT prophylaxis at midnight. Discussed with Dr Kevin Hahn who will take her to the OR tomorrow if medically optimized. JOHNATHAN PERDUE, KEVIN [id number]/CPS #: [id number]/CPS #: [id number] [facility]
[2019-05-31 16:41] LABS: Hematocrit 31 % (35-47); Hemoglobin 10.3 g/dL (12.0-16.0); Mean Corpuscular HGB Conc 34 g/dL (31-36); Mean Corpuscular Hemoglobin 29 pg (27-31); Mean Corpuscular Volume 85 fL (80-97); Mean Platelet Volume 8.1 fL (7.4-10.4); Platelet Count 239 10^3/uL (150-450); Red Cell Distribution Width 15 % (10-15); White Blood Count 13.1 10^3/uL (3.5-10.8)
--- NOTE | 2019-05-31 16:50 | ECHO ---
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 History: Deep vein thrombosis. Pulmonary Embolism. The patient has a history of breast malignancy. S/P Lumpectomy.. Functional status: Renal failure. Risk factors: Former tobacco use. Hypertension. Diabetes mellitus. Conclusions Summary: - Left ventricle: The cavity size is normal. Wall thickness is mildly increased. Systolic function is normal. The estimated ejection fraction is 55-60%. Wall motion is normal; there are no regional wall motion abnormalities. - Right ventricle: The cavity size is normal. Systolic function is normal. - Left atrium: The atrium is normal in size. - Mitral valve: There is mild to moderate regurgitation. - Pulmonary arteries: Systolic pressure can not be accurately estimated. Recommendations: Compared to prior study from 12/2017, findings are similar. Study data: Transthoracic echocardiogram. Procedure: Transthoracic echocardiography was performed. Image quality was suboptimal. The study was technically limited due to body habitus. Intravenous Definity , 2 mlswas administered. Complete 2D, spectral Doppler, and color flow Doppler. Location: Bedside. Patient room number: 335. Rhythm: Normal sinus rhythm. Findings Left ventricle: The cavity size is normal. Wall thickness is mildly increased. Systolic function is normal. The estimated ejection fraction is 55-60%. Wall motion is normal; there are no regional wall motion abnormalities. Left ventricular diastolic function parameters are indeterminate. Right ventricle: The cavity size is normal. Systolic function is normal. Left atrium: The atrium is normal in size. Right atrium: The atrium is normal in size. Mitral valve: The leaflets are normal thickness. There is no evidence of stenosis. There is mild to moderate regurgitation. Aortic valve: The valve is trileaflet. The leaflets are mildly thickened. Thickening, consistent with sclerosis. Mild focal thickening involving the left coronary and noncoronary cusp. Left coronary cusp mobility is mildly restricted. There is no evidence of stenosis. There is mild regurgitation. Tricuspid valve: The leaflets are normal thickness. There is no evidence of stenosis. There is trace to mild regurgitation. Pulmonic valve: The leaflets are normal thickness. There is no evidence of stenosis. There is trace regurgitation. Aorta: Aortic root: The aortic root is appears normal. Ascending aorta: The ascending aorta is appears normal. Aortic arch: The aortic arch is appears normal. Pericardium: There is no significant pericardial effusion. Pulmonary arteries: Not well visualized. Systolic pressure can not be accurately estimated. Systemic veins: Inferior vena cava: The vessel is normal in size. There is (>= 50%) respiratory change in the IVC dimension. Measurements Left ventricle Value Ref Aortic valve Value Ref NIKOLAI, LAX 4.9 cm 3.8 - 5.2 Nolan diam, ED 2.0 cm ---- ESD, LAX 3.2 cm 2.2 - 3.5 Peak v, S 1.49 m/sec ---- FS, LAX 34 % 27 - 45 VTI, S 34.5 cm ---- PW, ED, LAX (H) 1.2 cm 0.6 - 0.9 Mean grad, S 5.0 mm Hg ---- FS 34 % 27 - 45 Peak grad, S 9.0 mm Hg ---- PW, ED (H) 1.2 cm 0.6 - 0.9 LVOT/AV, VTI ratio 0.72 ---- E', lat nolan, TDI (L) 4.6 cm/sec >=10.0 KEL, VTI 2.28 cm^2 -- -- E/e', lat nolan, 23 KEL, Vmax 2.51 cm^2 ---- TDI AR peak v 3.8 m/sec ---- E', med nolan, TDI (L) 4.6 cm/sec >=7.0 AR PHT 536 ms -- -- E/e', med nolan, 23 AR peak grad 58 mm Hg ---- TDI E', avg, TDI 4.6 cm/sec Mitral valve Value Ref E/e', avg, TDI (H) 23 <=14 Peak E 1.08 m/sec -- -- Peak A 1 m/sec ---- LVOT Value Ref Decel time 137 ms ---- Diam, S 2.00 cm Peak grad, D 4.7 mm Hg ---- Area 3.1 cm^2 Peak E/A ratio 1.1 ---- Peak nancy, S 1.19 m/sec ERO, PISA 0.13 cm^2 ---- VTI, S 25.0 cm MR vol, PISA 26 ml ---- Peak grad, S 6 mm Hg MR fraction, PISA 25 % ---- Mean grad, S 4 mm Hg SV 78 ml Pulmonic valve Value Ref SV/bsa 39 ml/m^2 Peak v, S 0.83 m/sec ---- Peak grad, S 3.0 mm Hg ---- Ventricular septum Value Ref IVS, ED (H) 1.1 cm 0.6 - 0.9 Aortic root Value Ref Root diam 3.1 cm <4.2 Right ventricle Value Ref AW thickness, ED 0.5 cm 0.1 - 0.5 Ascending aorta Value Ref NIKOLAI, LAX 2.8 cm AAo AP diam, S 3.4 cm ---- NIKOLAI minor ax, A4C (H) 4.1 cm 1.9 - 3.5 mid Aortic arch Value Ref Arch diam 2.4 cm ---- Left atrium Value Ref AP dim, ES 3.60 cm 2.70 - Decending aorta Value Ref 3.80 Brooke peak nancy 0.56 m/sec ---- ML dim, A4C 3.8 cm SI dim, A4C 4.3 cm Inferior vena cava Value Ref Vol/bsa, ES, 1-p 13 ml/m^2 11 - 40 Diam 1.8 cm ---- A4C Vol/bsa, ES, A/L 20 ml/m^2 16 - 34 Right atrium Value Ref SI dim, ES 4.3 cm 3.4 - 5.3 ML dim, ES, A4C 3.6 cm 2.6 - 4.4 Estimated RAP 3 mm Hg Legend: (L) and (H) gage values outside specified reference range. Prepared and electronically signed by Vishal Soriano MD 05/31/2019 16:50
--- NOTE | 2019-05-31 17:00 | HP ---
CC: Dr. Zurita * HISTORY AND PHYSICAL: DATE OF ADMISSION: 05/31/19 PRIMARY CARE PROVIDER: Dr. Zurita. PRINCIPAL DIAGNOSIS: Right hip fracture. HISTORY OF PRESENT ILLNESS: Ms. Montemayor is a 73-year-old female who presented to [facility] on 05/28/19 with complaints of fall and right hip pain. The patient was admitted despite having a negative x-ray for fracture. She was unable to ambulate. Initially, her pain was improving; however, the pain again flared and she underwent a CT scan of the pelvis. This revealed a possible hip fracture. MRI was then obtained, which confirmed the hip fracture. Because of needing orthopedic intervention, I was contacted for direct admission. Overnight, prior to transfer; however, the patient developed new O2 requirements up to 6 L. The patient denies any significant cough, but does state that she is coughing on occasion. She is not bringing up any sputum. She did not have a fever. She does have an elevated white blood cell count of 13.8 per records from [facility]. Currently, the patient states that she is feeling okay. She is having pain in her hip. She denies any shortness of breath at this point. PAST MEDICAL HISTORY: 1. Type 2 diabetes. 2. Stage IV chronic kidney disease. 3. History of pulmonary embolism. 4. Hypertension. 5. History of subdural hematoma. 6. History of breast cancer. 7. Depression. 8. PTSD. 9. Recurrent gastritis. 10. GERD. 11. Chronic pain. PAST SURGICAL HISTORY: 1. Appendectomy. 2. Cholecystectomy. 3. Tonsillectomy. HOME MEDICATIONS: 1. Torsemide 40 mg p.o. daily. 2. Toujeo 50 units subcutaneous q.h.s. 3. Simethicone 125 mg p.o. 4 times daily p.r.n. bloating. 4. MiraLAX 17 g p.o. daily p.r.n. constipation. 5. Tylenol 1000 mg p.o. q.8 hours p.r.n. pain. 6. Melatonin 3 mg p.o. q.h.s. p.r.n. insomnia. 7. Flonase 1 spray to both nostrils daily. 8. Lipitor 20 mg p.o. q.h.s. 9. Amlodipine 10 mg p.o. daily. 10. Venlafaxine ER 150 mg p.o. daily. 11. Omeprazole 20 mg p.o. daily. 12. Levothyroxine 200 mcg p.o. daily. 13. Arnuity Ellipta 1 puff inhaled daily. 14. Cetirizine 10 mg p.o. daily. 15. Atenolol 100 mg p.o. daily. 16. Aspirin 81 mg p.o. daily. 17. Sertraline 75 mg p.o. daily. ALLERGIES: BUPROPION, HEPARIN, HYDROCODONE, and METFORMIN. FAMILY HISTORY: Both parents of COPD after smoking very heavily. SOCIAL HISTORY: The patient is a former smoker; she quit in 1983. She does not drink alcohol. 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 She is not . She refuses to designate a healthcare proxy. REVIEW OF SYSTEMS: A complete 11-system review of systems is obtained. Pertinent positives and negatives are as per HPI and otherwise negative. PHYSICAL EXAMINATION GENERAL: The patient is a well-developed, elderly obese female, seen sitting up in bed, in no acute distress. VITAL SIGNS: Blood pressure 198/98, pulse 82, respirations 18, temp 95.1 (this is confirmed to be wrong as temporal scanner gives her a temp of 97.4), O2 sat 93% on 4 L. HEENT: Pupils are equal. Extraocular muscles intact. Oropharynx is dry. Dentition is poor. There is no submandibular, cervical, or supraclavicular adenopathy. PULMONARY: Lungs are clear to auscultation bilaterally. CARDIAC: Normal S1, S2. Regular rate and rhythm. I did not appreciate any murmurs. ABDOMEN: Bowel sounds are present. Abdomen is soft, nontender, nondistended. MUSCULOSKELETAL: There is pain with any movement of the right lower extremity. It does not appear to be shortened or externally rotated. NEURO: Cranial nerves II through XII are grossly intact. Sensation is intact to light touch throughout. Strength is 5/5 and symmetric in the upper extremities. Lower extremities, strength is not tested at this time. PSYCH: The patient is alert. She is oriented. She is a generally poor historian. SKIN: Visible areas of skin are warm and dry. There is a small scabbed lesion on the right anterior ankle. There are no rashes. LABORATORY DATA: Repeat labs are pending at this time. ASSESSMENT AND PLAN: Ms. Montemayor is a 73-year-old female who has had recurrent falls recently and presented to [facility] on 05/28/19 with complaints of right hip pain and ultimately found to have a right hip fracture complicated by acute hypoxemic respiratory failure. 1. Right hip fracture. The patient's case has been discussed with Dr. Hahn by the provider at [facility]. She ultimately will need to undergo a repair. At this time, there is question as to the cause of her acute hypoxemic respiratory failure, and because of this, I do not believe the patient is medically optimized to go to the OR today. She will have morphine for pain control. She will continue on p.r.n. MiraLAX for bowel regularity. 2. Acute hypoxemic respiratory failure. The patient does not use oxygen normally. She was requiring 6 L of oxygen overnight per report from the provider at [facility]. Currently, she is on 4 L. Chest x-ray reviewed by myself from [facility] does not reveal clear infiltrate; however, the patient does have an elevated white blood cell count. She does report some coughing but not a tremendous amount. At this point, I will go ahead and start ceftriaxone and azithromycin for possible pneumonia, though again this is not clear. Additionally, the patient has a history of pulmonary embolism and I do believe that this needs to be ruled out. I do not see that the patient was on DVT prophylaxis while at [facility], though this could have been missed by myself. The patient reportedly has a HEPARIN allergy, but she has received Lovenox as recently as February 2019. In addition, the patient is on diuretic therapy at home. She appears somewhat dry at this point with an elevated creatinine above her baseline. I am going to get a transthoracic echocardiogram as our last echo was from December 2017. 3. Elevated creatinine above baseline renal function. The patient's baseline creatinine is in the 1.3 to 1.4 range. Today, her creatinine was reported to be 4.0. I am going to repeat a BMP at this point. Again, the patient appears to be slightly dry. I am going to be giving her normal saline at 75 mL per hour. We will follow up her creatinine. We will avoid nephrotoxic agents. 4. Type 2 diabetes. The patient reportedly had low blood sugar at [facility]. She typically takes Toujeo 50 units at bedtime. I have reduced this to 20 units at bedtime. She will continue on this as well as a lispro sliding scale q.a.c. h.s. Hemoglobin A1c was last obtained on 03/27/19 and was in decent range at 7.0%. 5. Anemia. The patient was anemic with a hemoglobin down to 6.9 at [facility]. She received a blood transfusion for this. She has chronic anemia; however, that degree of anemia is worse than usual. Iron studies from 05/28/19 possibly indicate iron deficiency anemia. I will be getting a followup CBC now. It is possible her anemia is secondary to anemia of chronic kidney disease. 6. Hypertension. Blood pressures are markedly elevated at this time. I am going to add a p.r.n. hydralazine for now. I am not adjusting her antihypertensive regimen at this point and we will follow her blood pressures before doing so. 7. Hyperlipidemia. Continue Lipitor 20 mg at bedtime. 8. Gastroesophageal reflux disease. Continue omeprazole. 9. Hypothyroidism. TSH last checked on 03/27/19 and was elevated at 10.2. Her free T4 has not been checked recently. I will check these now. 10. Depression. Continue venlafaxine and sertraline. 11. DVT prophylaxis: According to the Adult Thrombosis Prophylaxis Risk Factor Assessment Guide, the patient has a total risk factor score of 9, making her the highest risk. Lovenox 30 mg subcutaneous daily will be utilized as DVT prophylaxis. 12. Code status is full. TIME SPENT: 65 minutes was spent admitting this patient. [id number]/[facility] #: [id number] AZAEL
[2019-05-31 17:09] LABS: BUN/Creatinine Ratio 15.5 (8-20); EGFR African American 13.7 (>60); EGFR Non-African American 11.3 (>60); Potassium 4.2 mmol/L (3.5-5.0)
[2019-05-31 17:12] LABS: TSH (Thyroid Stimulating Horm) 1.89 mcIU/mL (0.34-5.60)
[2019-05-31 17:14] LABS: Free T4 0.89 ng/dL (0.61-1.12)
[2019-05-31] MEDS: Insulin LISPRO* 1 UNITS UNIT SUBCUT SCH ×2 (18:05→22:30)
[2019-05-31] MEDS: Insulin GLARGINE(*) 1 UNITS UNIT SUBCUT SCH (22:34)
[2019-05-31] MEDS: Atorvastatin* 20 MG TAB PO SCH (22:35)
[2019-06-01] MEDS: Levothyroxine TAB* 100 MCG TAB PO SCH (06:17)
[2019-06-01] MEDS: NS 0.9% 1000 ML** 1,000 ML IV SCH (07:04)
[2019-06-01 07:09] LABS: ABS Basophils 0.1 10^3/ul (0-0.2); ABS Eosinophils 0.3 10^3/ul (0-0.6); ABS Lymphocytes 0.8 10^3/ul (1.0-4.8); ABS Monocytes 0.5 10^3/ul (0-0.8); ABS Neutrophils 9.2 10^3/ul (1.5-7.7); Eosinophil % 2.5 %; Hematocrit 25 % (35-47); Hemoglobin 8.6 g/dL (12.0-16.0); Mean Corpuscular HGB Conc 35 g/dL (31-36); Mean Corpuscular Hemoglobin 30 pg (27-31); Mean Corpuscular Volume 85 fL (80-97); Mean Platelet Volume 8.1 fL (7.4-10.4); Platelet Count 207 10^3/uL (150-450); Red Blood Count 2.92 10^6 /uL (3.70-4.87); Red Cell Distribution Width 15 % (10-15); White Blood Count 10.9 10^3/uL (3.5-10.8)
[2019-06-01 07:16] LABS: INR 1.17 (0.82-1.09)
[2019-06-01] MEDS: Pantoprazole TAB * 40 MG TAB PO SCH ×2 (07:23→12:52)
[2019-06-01] MEDS: Aspirin EC TAB* 81 MG TAB.EC PO SCH (07:23)
[2019-06-01] MEDS: Sertraline* 25 MG TAB PO SCH (07:23)
[2019-06-01 07:25] LABS: BUN/Creatinine Ratio 14.8 (8-20); Calcium 8.6 mg/dL (8.6-10.3); EGFR African American 13.5 (>60); EGFR Non-African American 11.2 (>60); Potassium 4.4 mmol/L (3.5-5.0)
[2019-06-01] MEDS: Insulin LISPRO* 1 UNITS UNIT SUBCUT SCH ×2 (07:43→12:17)
[2019-06-01] MEDS ORDERED: Venlafaxine EXT RELEASE CAP* 75 MG PO SCH (09:00)
[2019-06-01] MEDS: cefTRIAXone(*) 1 GM in NS 0.9% 50 ML* 50 ML IVPB SCH (09:46)
[2019-06-01] MEDS: Atenolol TAB* 50 MG PO SCH (09:47)
--- NOTE | 2019-06-01 09:58 | PN ---
Subjective Date of Service: 06/01/19 Interval History: Patient is feeling less SOB and having decreased cough. Patient states that before she came into the hospital she was able to walk up a slight grade for a block without getting SOB. Patient denies CP, N/V, abdominal pain, palpitations , F/C, or other pain. Patient is very ready for her hip to be repaired. Family History: Unchanged from Admission Social History: Unchanged from Admission Past Medical History: Unchanged from Admission Objective Active Medications: Amlodipine Besylate (Norvasc Tab*) 10 mg PO QAM [facility] Aspirin (Aspirin Ec Tab*) 81 mg PO QAM [facility] Last Admin: 06/01/19 07:23 Dose: Not Given Atenolol (Tenormin Tab*) 100 mg PO QAM [facility] Last Admin: 06/01/19 09:47 Dose: 100 mg Atorvastatin Calcium (Lipitor*) 20 mg PO BEDTIME [facility] Last Admin: 05/31/19 22:35 Dose: 20 mg Dextrose (Dextrose 50% Vial 50 Ml*) 25 ml IV PUSH .FOR FS < 60 - SS PRN PRN Reason: FS < 60 Docusate Sodium (Colace Cap*) 100 mg PO BID [facility] Hydralazine HCl (Apresoline Iv*) 10 mg IV SLOW PU Q6H PRN PRN Reason: SBP>180 Azithromycin (Zithromax 500 Mg/250 Ml) 500 mg in 250 mls @ 250 mls/hr IVPB Q24H [facility] Ceftriaxone Sodium 1 gm/ (Sodium Chloride) 50 mls @ 100 mls/hr IVPB Q24H [facility] Last Admin: 06/01/19 09:46 Dose: 100 mls/hr Insulin Glargine (Lantus(*)) 20 units SUBCUT BEDTIME [facility] Last Admin: 05/31/19 22:34 Dose: 20 units Insulin Human Lispro (Humalog*) 0 units SUBCUT ACHS [facility]; Protocol Last Admin: 06/01/19 07:43 Dose: Not Given Levothyroxine Sodium (Synthroid Tab*) 200 mcg PO 0600 [facility] Last Admin: 06/01/19 06:17 Dose: Not Given Magnesium Hydroxide (Milk Of Magnesia Liq*) 30 ml PO BID PRN PRN Reason: CONSTIPATION Melatonin (Melatonin) 3 mg PO BEDTIME PRN PRN Reason: Sleep Mometasone Furoate (Asmanex 220 Mcg Mdi *) 1 puff INH [facility] Morphine Sulfate (Morphine Inj (Syringe)*) 4 mg IV Q4H PRN PRN Reason: PAIN - SEVERE Last Admin: 05/31/19 16:20 Dose: 4 mg Pantoprazole Sodium (Protonix Tab*) 40 mg PO [facility] Last Admin: 06/01/19 07:23 Dose: Not Given Polyethylene Glycol/Electrolytes (Miralax*) 17 gm PO DAILY PRN PRN Reason: CONSTIPATION Sertraline HCl (Zoloft*) 75 mg PO [facility] Last Admin: 06/01/19 07:23 Dose: Not Given Venlafaxine HCl (Effexor Xr Cap*) 150 mg PO [facility] Last Admin: 06/01/19 07:23 Dose: Not Given Vital Signs - 8 hr 06/01/19 06/01/19 04:53 09:13 Temperature 98 F 96.5 F Pulse Rate 79 84 Respiratory 18 18 Rate Blood Pressure 140/60 132/65 (mmHg) O2 Sat by Pulse 97 98 Oximetry Oxygen Devices in Use Now: Nasal Cannula Appearance: Patient is a 73yo female who appears stated age and is sitting in the bed in [facility]. Eyes: No Scleral Icterus, PERRLA Ears/Nose/Mouth/Throat: NL Teeth, Lips, Gums, Clear Oropharnyx, Mucous Membranes Moist Neck: NL Appearance and Movements; NL JVP, Trachea Midline Respiratory: Symmetrical Chest Expansion and Respiratory Effort, Clear to Auscultation Cardiovascular: NL Sounds; No Murmurs; No JVD, RRR, - - 1+ B/L LE edema. Abdominal: NL Sounds; No Tenderness; No Distention, No Hepatosplenomegaly Lymphatic: No Cervical Adenopathy Extremities: No Clubbing, Cyanosis Skin: No Rash or Ulcers, No Nodules or Sclerosis Neurological: Alert and Oriented x 3, NL Sensation, - - CN II-XII intact. Result Diagrams: 06/01/19 06:55 06/01/19 06:55 Assess/Plan/Problems-Billing Assessment: Patient is a 73yo female with a PMH for CKD, DM II, HTN, PTSD, here with a mechanical fall and a right femoral neck fracture who is pending surgical repair. Patient while at OSH was found to be hypoxic and having LLL pneumonia and is improving on antibiotics. - Patient Problems (1) Femoral neck fracture Current Visit: Yes Status: Acute Code(s): S72.009A - FRACTURE OF UNSP PART OF NECK OF UNSP FEMUR, INIT SNOMED Code(s): 4772729 Comment: - Due to Mechanical Fall - Found on MRI at OSH - No signs of distal vascular or neurological compromise - Appreciate Orthopedic input, Plan for repair later today - Patient is capable of >4 METS preoperatively. Echo preoperatively unremarkable. Patient's risk is increased due to acute renal failure, pneumonia. RCRI is 2, indicating a 10.1% chance fo MACE at 30 days. NSQIP calculator shows a 14.5% chance of serious complication and 17.4% chance of any complication. Patient is a high risk for a moderate risk procedure. However, delaying surgery to attempt to improve creatinine and respiratory status will decrease the chance of a good functional outcome post surgery. At this time, the patient is a reasonable candidate for surgery and needs no further testing for medical optimization. (2) CKD stage 5 due to type 2 diabetes mellitus Current Visit: Yes Status: Acute Code(s): E11.22 - TYPE 2 DIABETES MELLITUS W DIABETIC CHRONIC KIDNEY DISEASE; N18.5 - CHRONIC KIDNEY DISEASE, STAGE 5 SNOMED Code(s): 210861104690 Comment: - Acute increase in Cret to a high of 4.1. Now at 3.92. - Not responding to fluids, stop NS - Appears somewhat fluid overloaded, will not treat with Lasix due to surgery and NPO status - [place] in place, no other signs of obstruction - Monitor BMP, no current indication for dialysis (3) Pneumonia Current Visit: Yes Status: Acute Code(s): J18.9 - PNEUMONIA, UNSPECIFIED ORGANISM SNOMED Code(s): 965751133 Comment: - Improving, on 2L O2 with improving cough. - In LLL per [place] documentation - Continue Ceftriaxone and Azithromycin (4) Acute respiratory failure with hypoxia Current Visit: Yes Status: Acute Code(s): J96.01 - ACUTE RESPIRATORY FAILURE WITH HYPOXIA SNOMED Code(s): 36735418 Comment: - Due to Pneumonia - Down to 2L O2 (5) Anemia Current Visit: No Status: Acute Code(s): D64.9 - ANEMIA, UNSPECIFIED SNOMED Code(s): 131073157 Comment: - S/P 2u PRBC at OSH - Likely due to CKD - F/U Nephrology to discuss possible epo - Transfuse PRN Below 8. (6) Constipation Current Visit: No Status: Acute Code(s): K59.00 - CONSTIPATION, UNSPECIFIED SNOMED Code(s): 91036386 Comment: - Chronic problem - Continue bowel regimen - Worsened likely due to pain meds. (7) Falls frequently Current Visit: No Status: Acute Code(s): R29.6 - REPEATED FALLS SNOMED Code(s): 529380660 Comment: - Contributing in her presentation (8) Diabetes mellitus, type 2 Current Visit: No Status: Chronic Priority: Medium Comment: - Recent good A1cs - Continue 20u Lantus (Decreased dose) - FS Q6H while NPO (9) HTN (hypertension) Current Visit: No Status: Chronic Priority: Medium Code(s): I10 - ESSENTIAL (PRIMARY) HYPERTENSION SNOMED Code(s): 05997078 Comment: - Normotensive - Hold diuretics - Continue Atenolol perioperatively (10) History of pulmonary embolism Current Visit: No Status: Chronic Code(s): Z86.711 - PERSONAL HISTORY OF PULMONARY EMBOLISM SNOMED Code(s): 037829981 Comment: - History of ICH - Not on chronic AC (11) Hypothyroidism Current Visit: No Status: Chronic Priority: Medium Code(s): E03.9 - HYPOTHYROIDISM, UNSPECIFIED SNOMED Code(s): 50355052 Comment: - Continue levothyroxine (12) DVT prophylaxis Current Visit: No Status: Acute Priority: High Code(s): [id number] - SNOMED Code(s): 316375270 Comment: - Lovenox SQ on hold for surgery (13) Full code status Current Visit: No Status: Acute Code(s): Z78.9 - OTHER SPECIFIED HEALTH STATUS SNOMED Code(s): 895254750 Comment: Status and Disposition: Inpatient for surgery.
[2019-06-01] MEDS: amLODIPine TAB* 5 MG PO SCH (10:40)
[2019-06-01] MEDS: Azithromycin 500 mg/250 ml NS 500 MG/250 ML BAG IVPB SCH (10:42)
[2019-06-01] MEDS: Mometasone 220 MCG MDI INH SCH (10:44)
[2019-06-01] MEDS ORDERED: Midazolam* 1 MG/ML 5 ML VIAL (5 MG) ONE (15:42)
[2019-06-01] MEDS ORDERED: fentaNYL* 50 MCG/ML 2 ML VIAL (100 MCG VIAL) ONE (15:42)
[2019-06-01] MEDS ORDERED: KETAMINE HCL* 50 MG/ML 10 ML VIAL ONE (15:42)
[2019-06-01] MEDS ORDERED: fentaNYL* 50 MCG/ML 2 ML VIAL (100 MCG VIAL) IV PRN (17:14)
[2019-06-01] MEDS ORDERED: Naloxone* 0.4 MG/ML 1 ML VIAL IV PRN (17:14)
[2019-06-01] MEDS ORDERED: PROCHLORPERAZINE INJ 5 MG/ML 2 ML VIAL IV PRN (17:14)
[2019-06-01] MEDS ORDERED: HYDROmorphone INJ1* 1 MG/ML SYRINGE IV PRN (17:14)
[2019-06-01] MEDS ORDERED: oxyCODONE/Acetamin 5/325 MG* TAB PO PRN ×3 (17:30→21:05)
[2019-06-01] MEDS ORDERED: Propofol* 10 MG/ML 20 ML BTL ONE (17:51)
[2019-06-01] MEDS ORDERED: Phenylephrine 10 MG/ML VIAL* 1 ML VIAL ONE (17:51)
[2019-06-01] MEDS ORDERED: Phenylephrine 40 MCG/ML SYRINGE ONE (17:51)
--- NOTE | 2019-06-01 18:07 | OP ---
Operative Report - Blank - Operative Report Date of Operation: 06/01/19 Note: PATIENT: Kat Montemayor DATE OF : 1945 DATE OF SURGERY: 06/01/2019 SURGEON: Kevin Hahn MD [employer]MENT MECHANIC: None ANESTHESIOLOGIST: Dr. Collins PREOPERATIVE DIAGNOSIS: Right valgus impacted femoral neck hip fracture. POSTOPERATIVE DIAGNOSIS: Right valgus impacted femoral neck hip fracture. PROCEDURE: Closed reduction and internal fixation of the right femoral neck hip fracture with cannulated screws. ANESTHESIA: Spinal IMPLANTS: Three Synthes 7.3mm cannulated screws ESTIMATED BLOOD LOSS: 25cc SPECIMENS: None. DRAIN: None TOURNIQUET TIME: None. COMPLICATIONS: None. STATUS: Stable from the operating room to the recovery room and then readmitted to the floor. INDICATIONS FOR PROCEDURE: Kat sustained a fall with the above-mentioned injury. Both operative and non operative treatment alternatives were reviewed. Further, the nature and risks of surgery were reviewed in careful detail. Our discussions regarding the risks of surgery included, but were not limited to, bleeding, need for blood transfusion, infection, wound problems, malunion, nonunion, AVN, nerve injury, neuroma, RSD, persistent symptoms, need for further surgery and even the remote chance of catastrophic complication, including . DESCRIPTION OF PROCEDURE: The patient was seen in the preoperative holding unit and informed written consent was obtained. The appropriate extremity was marked. The patient was then brought to the operating room anesthesia was induced. The patient was then carefully positioned on the fracture table and all bony prominences were padded with great care. We fluoroscopically assessed the fracture. A chlorhexidine-based pre-scrub was performed followed by prep and drape in standard sterile fashion with ChloraPrep. A surgical safety pause was then conducted in which we confirmed the appropriate patient, extremity, planned procedure, availability of equipment, indication and administration of prophylactic antibiotics, and DVT prophylaxis in the form of a compression boot on the non-surgical extremity. I utilized fluoroscopy to gage out my lateral hip incision. An approximately 3 cm longitudinal incision was made. I incised through the iliotibial band to get down to the lateral femur. I used fluoroscopy to drive a guidewire up the inferior aspect of the femoral neck. Placement of the guidewire was confirmed on both AP and lateral views, although lateral views were difficult due to her body habitus. I then utilized a parallel aiming guide to place 2 more guidewires superiorly up the femoral neck, anteriorly and posteriorly. The length and placement of the wires were confirmed on both AP and lateral fluoroscopic views. The length of the wires were measured with a depth gauge. The outer cortex of the femur was then over-drilled for the 3 wires. Three Synthes 7.3 mm partially threaded cannulated screws were then placed over the guidewires into the proximal femur/hip. Final placement of the screws was then confirmed on AP and lateral fluoroscopic images. I irrigated copiously and closed in layers utilizing #1 Vicryl deep, 3-0 Monocryl for the dermal layer, and pernell for the skin. A sterile dressing was then applied. At this point, the patient was carefully transitioned off of the fracture table and awakened from anesthesia. There were no complications. All needle and sponge counts were correct at the end of the case. ATTESTATION: I attest I was present and scrubbed and performed the entire procedure myself. POSTOPERATIVE PLAN: The patient will be admitted back to the medical service postoperatively and may be weightbearing as tolerated and will work with physical therapy. Chemical DVT prophylaxis is recommended for 1 month postoperatively with Lovenox 40mg daily if ok from medical team standpoint.
[2019-06-01] MEDS: Morphine INJ* 4 MG/ML 1 ML SYRINGE (NEW SYRINGE VERSION) IV PRN (19:44)
[2019-06-01] MEDS: Atorvastatin* 20 MG TAB PO SCH (20:24)
[2019-06-01] MEDS: Magnesium Hydroxide LIQ* 30 ML UDC PO PRN (20:24)
[2019-06-01] MEDS ORDERED: Docusate CAP* 100 MG PO SCH (21:00)
[2019-06-01] MEDS ORDERED: hydrALAZINE IV* 20 MG/ML VIAL IV SLOW PU ONE (21:04)
[2019-06-01] MEDS ORDERED: Atenolol TAB* 25 MG PO ONE (21:06)
--- NOTE | 2019-06-01 21:10 | PN ---
Hospitalist Progress Note Cross Cover Note: 73F with CKD with mech fall and R hip fracture Called for the following issues #HTN-SBP to 190s, Hydralazine 10mg x1 now, and then PO atenolol 25mg #Blood Glu is 82, will hold Lantus, as blood glu actually well controlled #Pain: Has no PO or long acting, will start percocet PRN Hold on IVF as she is drinking and already HTN and has CKD at baseline can always start PRN #Temp is 95.6, CTM post operative with warm blankets Will continue to follow
[2019-06-01] MEDS: Insulin GLARGINE(*) 1 UNITS UNIT SUBCUT SCH (21:41)
[2019-06-02 05:10] LABS: ABS Basophils 0.1 10^3/ul (0-0.2); ABS Eosinophils 0.2 10^3/ul (0-0.6); ABS Lymphocytes 0.3 10^3/ul (1.0-4.8); ABS Monocytes 0.5 10^3/ul (0-0.8); ABS Neutrophils 11.7 10^3/ul (1.5-7.7); Eosinophil % 1.8 %; Hematocrit 26 % (35-47); Hemoglobin 8.4 g/dL (12.0-16.0); Lymphocyte % 2.5 %; Mean Corpuscular HGB Conc 33 g/dL (31-36); Mean Corpuscular Hemoglobin 28 pg (27-31); Mean Corpuscular Volume 87 fL (80-97); Mean Platelet Volume 7.9 fL (7.4-10.4); Nucleated Red Blood Cells % 0.1; Platelet Count 275 10^3/uL (150-450); Red Blood Count 2.98 10^6 /uL (3.70-4.87); Red Cell Distribution Width 15 % (10-15); White Blood Count 12.9 10^3/uL (3.5-10.8)
[2019-06-02 05:28] LABS: BUN/Creatinine Ratio 16.8 (8-20); Calcium 8.7 mg/dL (8.6-10.3); EGFR African American 13.1 (>60); EGFR Non-African American 10.8 (>60); Magnesium 2.2 mg/dL (1.9-2.7); Potassium 4.9 mmol/L (3.5-5.0)
[2019-06-02] MEDS: Levothyroxine TAB* 100 MCG TAB PO SCH (05:40)
[2019-06-02] MEDS: Mometasone 220 MCG MDI INH SCH (07:41)
--- NOTE | 2019-06-02 07:46 | PN ---
Subjective Date of Service: 06/02/19 Interval History: No acute events overnight. Had HTN and was given hydralazine by overnight coverage. Was given Percocet this AM when she was drowsy and in 1/10 pain, noted to be more confused afterwards. Yesterday, pt underwent closed reduction and internal fixation of R hip with screws. Tolerated procedure well. No specific complaints today. AOx1 after significant opioids the last 24 hours in setting of renal impairment. Alert and responsive with normal respiratory rate. Objective Active Medications: Acetaminophen (Tylenol Tab*) 975 mg PO Q12H PRN PRN Reason: Pain - Mild to Moderate Amlodipine Besylate ([facility]asc Tab*) [facility] [place] Last Admin: 06/02/19 09:50 Dose: 10 mg Aspirin (Aspirin Ec Tab*) 81 mg PO [facility] Last Admin: 06/02/19 09:50 Dose: 81 mg Atenolol (Tenormin Tab*) 100 mg PO [facility] Last Admin: 06/02/19 09:50 Dose: 100 mg Dextrose (Dextrose 50% Vial 50 Ml*) 25 ml IV PUSH .FOR FS < 60 - SS PRN PRN Reason: FS < 60 Enoxaparin Sodium (Lovenox(*)) 30 mg SUBCUT DAILY [facility] Stop: 07/01/19 09:01 Last Admin: 06/02/19 09:48 Dose: 30 mg Hydralazine HCl (Apresoline Iv*) 10 mg IV SLOW PU Q6H PRN PRN Reason: SBP>180 Last Admin: 06/01/19 20:31 Dose: 10 mg Ceftriaxone Sodium 1 gm/ (Sodium Chloride) 50 mls @ 100 mls/hr IVPB Q24H [facility] Last Admin: 06/02/19 10:02 Dose: 100 mls/hr Insulin Human Lispro (Humalog*) 0 units SUBCUT AC [facility]; Protocol Lactulose (Lactulose*) 30 ml PO TID [facility] Last Admin: 06/02/19 13:15 Dose: Not Given Levothyroxine Sodium (Synthroid Tab*) 200 mcg PO 0600 [facility] Last Admin: 06/02/19 05:40 Dose: 200 mcg Magnesium Hydroxide (Milk Of Magnesia Liq*) 30 ml PO BID PRN PRN Reason: CONSTIPATION Last Admin: 06/01/19 20:24 Dose: 30 ml Melatonin (Melatonin) 3 mg PO BEDTIME PRN PRN Reason: Sleep Mometasone Furoate (Asmanex 220 Mcg Mdi *) 1 puff INH [facility] Last Admin: 06/02/19 07:41 Dose: 1 puff Oxycodone/Acetaminophen (Percocet 5/325 Tab*) 1 tab PO Q8H PRN PRN Reason: PAIN - SEVERE Pantoprazole Sodium (Protonix Tab*) 40 mg PO [facility] Last Admin: 06/02/19 09:50 Dose: 40 mg Polyethylene Glycol/Electrolytes (Miralax*) 17 gm PO DAILY PRN PRN Reason: CONSTIPATION Last Admin: 06/02/19 09:48 Dose: 17 gm Senna (Senokot 8.6 Mg Tab*) 1 tab PO BEDTIME PRN PRN Reason: if no BM during day Sertraline HCl (Zoloft*) 75 mg PO [facility] Last Admin: 06/02/19 09:49 Dose: 75 mg Torsemide (Demadex*) 40 mg PO [facility] Venlafaxine HCl (Effexor Xr Cap*) 75 mg PO [facility] Last Admin: 06/02/19 09:50 Dose: 75 mg Vital Signs - 8 hr 06/01/19 06/02/19 06/02/19 23:46 01:26 03:57 Temperature 97.9 F 97.8 F Pulse Rate 85 82 Respiratory 17 18 18 Rate Blood Pressure 135/70 130/70 (mmHg) O2 Sat by Pulse 97 95 Oximetry 06/02/19 06/02/19 05:40 07:18 Temperature Pulse Rate Respiratory 17 18 Rate Blood Pressure (mmHg) O2 Sat by Pulse Oximetry Appearance: well appearing, NAD, occasionally falls asleep but easily wakened by voice Eyes: No Scleral Icterus Ears/Nose/Mouth/Throat: Clear Oropharnyx, Mucous Membranes Moist Neck: NL Appearance and Movements; NL JVP, Trachea Midline Respiratory: Symmetrical Chest Expansion and Respiratory Effort, Clear to Auscultation Cardiovascular: NL Sounds; No Murmurs; No JVD, RRR Abdominal: NL Sounds; No Tenderness; No Distention, No Hepatosplenomegaly Extremities: No Edema, - - R hip with bandage c/d/i Neurological: - - AOx1(self), moved 4 extremities spontaneously; no facial droop or slurred speech Result Diagrams: 06/02/19 04:51 06/02/19 04:51 Assess/Plan/Problems-Billing Assessment: 73W with CKD, DM II, HTN, PTSD, cog impairment, here with a mechanical fall and a right femoral neck fracture s/p screw 06/01. Patient while at OSH was found to be hypoxic and having LLL pneumonia. - Patient Problems (1) Pneumonia Comment: Diagnosed at outside hospital, in LLL per [facility] documentation. Urine antigens negative. - Continue CTX (05/31 - 06/06), s/p azithro x 3 days (2) Femoral neck fracture Comment: Due to Mechanical Fall. Dx'ed on MRI at OSH. No signs of distal vascular or neurological compromise. Now s/p closed repair with screw on 06/01. - Appreciate Orthopedic input - caution with pain regimen given significant renal impairment - PT (3) CKD stage 5 due to type 2 diabetes mellitus Comment: LANE possibly from poor PO, however no change after IVF. CKD from history of DM and HTN. [place] in place, no other signs of obstruction. - resume home torsemide (4) Anemia Comment: Likely due to CKD. - S/P 2u PRBC at OSH - F/U Nephrology to discuss possible epo - Transfuse PRN Below 8. (5) Constipation Comment: Chronic problem, worsened now from narcotics. - glycerine suppository now, cont senna/MoM/lactulose prns (6) Falls frequently Comment: Contributing to her presentation. - PT (7) Diabetes mellitus, type 2 Comment: HgbA1c 7.0% 03/2019. - home insulin glargine 50u held given occasional low blood glucose - initiate short-acting sliding scale to determine insulin requirements (8) HTN (hypertension) Comment: - continue home atenolol and amlodipine (9) Hypothyroidism Comment: - Continue levothyroxine (10) DVT prophylaxis Comment: - Lovenox SQ (11) Full code status Current Visit: Yes Status and Disposition: Inpatient for surgery.
[2019-06-02] MEDS ORDERED: Senna TAB 8.6 mg* TAB PO PRN (09:25)
[2019-06-02] MEDS ORDERED: Glycerin ADULT SUPP PR ONE (09:25)
[2019-06-02] MEDS ORDERED: Senna TAB 8.6 mg* TAB PO ONE (09:26)
[2019-06-02] MEDS: Enoxaparin(*) 30 MG/0.3 ML SYR SUBCUT SCH (09:48)
[2019-06-02] MEDS: Sertraline* 25 MG TAB PO SCH (09:49)
[2019-06-02] MEDS: Atenolol TAB* 50 MG PO SCH (09:50)
[2019-06-02] MEDS: Aspirin EC TAB* 81 MG TAB.EC PO SCH (09:50)
[2019-06-02] MEDS: amLODIPine TAB* 5 MG PO SCH (09:50)
[2019-06-02] MEDS: Pantoprazole TAB * 40 MG TAB PO SCH (09:50)
[2019-06-02] MEDS: Venlafaxine EXT RELEASE CAP* 75 MG PO SCH (09:50)
[2019-06-02] MEDS: cefTRIAXone(*) 1 GM in NS 0.9% 50 ML* 50 ML IVPB SCH (10:02)
--- NOTE | 2019-06-02 10:35 | PN ---
Progress Note - Progress Note Date of Service: 06/02/19 SOAP: Subjective: [Pt asleep/drowsy. Arousable but minimal response to questions. Nods head yes when asked about pain but falls asleep again.] Objective: [As above, NAD R hip dressing C/D/I. Able to wiggle foot/toes. NV function intact distally. Calves soft, NT Vital Signs: Temp Pulse Resp BP Pulse Ox 98.8 F 84 20 150/80 95 06/02/19 07:00 06/02/19 07:43 06/02/19 09:49 06/02/19 07:00 06/02/19 07:45 Laboratory Results - last 24 hr 06/01/19 06/01/19 06/01/19 12:10 15:20 18:07 WBC RBC Hgb Hct MCV MCH MCHC RDW Plt Count MPV Neut % (Auto) Lymph % (Auto) [place]ombs % (Auto) Eos % (Auto) Baso % (Auto) Absolute Neuts (auto) Absolute Lymphs (auto) Absolute Monos (auto) Absolute Eos (auto) Absolute Basos (auto) Absolute Nucleated RBC Nucleated RBC % Sodium Potassium Chloride Carbon Dioxide Anion Gap BUN Creatinine Est GFR ( Amer) Est GFR (Non-Af Amer) BUN/Creatinine Ratio Glucose POC Glucose (mg/dL) 104 H 80 83 Calcium Magnesium 06/01/19 06/02/19 06/02/19 20:54 03:10 04:51 WBC 12.9 H RBC 2.98 L Hgb 8.4 L Hct 26 L MCV 87 MCH 28 MCHC 33 RDW 15 Plt Count 275 MPV 7.9 Neut % (Auto) 91.3 Lymph % (Auto) 2.5 [place]ombs % (Auto) 3.6 Eos % (Auto) 1.8 Baso % (Auto) 0.8 Absolute Neuts (auto) 11.7 H Absolute Lymphs (auto) 0.3 L Absolute Monos (auto) 0.5 Absolute Eos (auto) 0.2 Absolute Basos (auto) 0.1 Absolute Nucleated RBC 0.0 Nucleated RBC % 0.1 Sodium Potassium Chloride Carbon Dioxide Anion Gap BUN Creatinine Est GFR ( Amer) Est GFR (Non-Af Amer) BUN/Creatinine Ratio Glucose POC Glucose (mg/dL) 82 196 H Calcium Magnesium 06/02/19 04:51 WBC RBC Hgb Hct MCV MCH MCHC RDW Plt Count MPV Neut % (Auto) Lymph % (Auto) [place] % (Auto) Eos % (Auto) Baso % (Auto) Absolute Neuts (auto) Absolute Lymphs (auto) Absolute Monos (auto) Absolute Eos (auto) Absolute Basos (auto) Absolute Nucleated RBC Nucleated RBC % Sodium 138 Potassium 4.9 Chloride 107 Carbon Dioxide 20 L Anion Gap 11 BUN 68 H Creatinine 4.04 H Est GFR ( Amer) 13.1 Est GFR (Non-Af Amer) 10.8 BUN/Creatinine Ratio 16.8 Glucose 184 H POC Glucose (mg/dL) Calcium 8.7 Magnesium 2.2 ] Assessment: [s/p ORIF R hip - cannulated screws] Plan: [PT/OT - OOB, WBAT R LE Lovenox for DVT prophylaxis Pain management Change R hip dressing tomorrow On abx for PNA Medicine following]
[2019-06-02] MEDS: Azithromycin 500 mg/250 ml NS 500 MG/250 ML BAG IVPB SCH (11:09)
[2019-06-02] MEDS: Torsemide TAB* 20 MG PO SCH (16:17)
[2019-06-02] MEDS: Acetaminophen TAB* 325 MG PO PRN (17:59)
[2019-06-02] MEDS: Insulin LISPRO* 1 UNITS UNIT SUBCUT SCH (18:00)
[2019-06-03 05:32] LABS: Hematocrit 22 % (35-47); Hemoglobin 7.5 g/dL (12.0-16.0); Mean Corpuscular HGB Conc 34 g/dL (31-36); Mean Corpuscular Hemoglobin 29 pg (27-31); Mean Corpuscular Volume 86 fL (80-97); Mean Platelet Volume 7.9 fL (7.4-10.4); Platelet Count 259 10^3/uL (150-450); Red Blood Count 2.62 10^6 /uL (3.70-4.87); Red Cell Distribution Width 15 % (10-15); White Blood Count 6.8 10^3/uL (3.5-10.8)
[2019-06-03 05:49] LABS: BUN/Creatinine Ratio 16.1 (8-20); Calcium 8.2 mg/dL (8.6-10.3); EGFR African American 11.1 (>60); EGFR Non-African American 9.2 (>60); Magnesium 2.4 mg/dL (1.9-2.7); Potassium 4.5 mmol/L (3.5-5.0)
[2019-06-03] MEDS: Levothyroxine TAB* 100 MCG TAB PO SCH (05:54)
--- NOTE | 2019-06-03 07:06 | PN ---
Subjective Date of Service: 06/03/19 Interval History: No acute events overnight. With 1 point drop in Hgb but without evidence for bleeding. Still no significant BM. Surgical site without evidence for hematoma. Patient pleasant and interactive on interview. States she feels great, however is noted to see "white dogs" and, per nursing, saw a person in the corner of her room. She is more oriented than yesterday - now knows location and century ( yesterday she didn't know either). Objective Active Medications: Acetaminophen (Tylenol Tab*) 975 mg PO Q12H PRN PRN Reason: Pain - Mild to Moderate Last Admin: 06/02/19 17:59 Dose: 975 mg Amlodipine Besylate (Norvasc Tab*) 10 mg PO [facility] Last Admin: 06/02/19 09:50 Dose: 10 mg Aspirin (Aspirin Ec Tab*) 81 mg PO [facility] Last Admin: 06/02/19 09:50 Dose: 81 mg Atenolol (Tenormin Tab*) 100 mg PO [facility] Last Admin: 06/02/19 09:50 Dose: 100 mg Dextrose (Dextrose 50% Vial 50 Ml*) 25 ml IV PUSH .FOR FS < 60 - SS PRN PRN Reason: FS < 60 Enoxaparin Sodium (Lovenox(*)) 30 mg SUBCUT DAILY [facility] Stop: 07/01/19 09:01 Last Admin: 06/02/19 09:48 Dose: 30 mg Hydralazine HCl (Apresoline Iv*) 10 mg IV SLOW PU Q6H PRN PRN Reason: SBP>180 Last Admin: 06/01/19 20:31 Dose: 10 mg Ceftriaxone Sodium 1 gm/ (Sodium Chloride) 50 mls @ 100 mls/hr IVPB Q24H [facility] Last Admin: 06/02/19 10:02 Dose: 100 mls/hr Insulin Human Lispro (Humalog*) 0 units SUBCUT AC [facility]; Protocol Last Admin: 06/02/19 18:00 Dose: 3 units Levothyroxine Sodium (Synthroid Tab*) 200 mcg PO 0600 [facility] Last Admin: 06/03/19 05:54 Dose: 200 mcg Magnesium Hydroxide (Milk Of Magnesia Liq*) 30 ml PO BID PRN PRN Reason: CONSTIPATION Last Admin: 06/01/19 20:24 Dose: 30 ml Melatonin (Melatonin) 3 mg PO BEDTIME PRN PRN Reason: Sleep Mometasone Furoate (Asmanex 220 Mcg Mdi *) 1 puff INH [facility] Last Admin: 06/02/19 07:41 Dose: 1 puff Oxycodone/Acetaminophen (Percocet 5/325 Tab*) 1 tab PO Q8H PRN PRN Reason: PAIN - SEVERE Pantoprazole Sodium (Protonix Tab*) 40 mg PO [facility] Last Admin: 06/02/19 09:50 Dose: 40 mg Senna (Senokot 8.6 Mg Tab*) 1 tab PO BEDTIME PRN PRN Reason: if no BM during day Sertraline HCl (Zoloft*) 75 mg PO [facility] Last Admin: 06/02/19 09:49 Dose: 75 mg Torsemide (Demadex*) 40 mg PO [facility] Last Admin: 06/02/19 16:17 Dose: 40 mg Venlafaxine HCl (Effexor Xr Cap*) 75 mg PO [facility] Last Admin: 06/02/19 09:50 Dose: 75 mg Vital Signs - 8 hr 06/03/19 06/03/19 00:15 03:55 Temperature 97.5 F 98.2 F Pulse Rate 71 72 Respiratory 18 18 Rate Blood Pressure 130/65 130/62 (mmHg) O2 Sat by Pulse 100 97 Oximetry Oxygen Devices in Use Now: Nasal Cannula Appearance: well appearing in NAD, alert and interactive, in very good spirits Eyes: No Scleral Icterus Ears/Nose/Mouth/Throat: Clear Oropharnyx, Mucous Membranes Moist Neck: NL Appearance and Movements; NL JVP, Trachea Midline Respiratory: - - bibasilar crackles Cardiovascular: NL Sounds; No Murmurs; No JVD, RRR Abdominal: NL Sounds; No Tenderness; No Distention, No Hepatosplenomegaly Extremities: - - surgical site over R hip without fluctuance, dressing c/d/i; BLE with trace edema over ankles Skin: No Rash or Ulcers Neurological: - - AOx2 - doesn't know date Result Diagrams: 06/03/19 04:58 06/03/19 04:58 Microbiology and Other Data: Microbiology 06/02/19 10:30 Legionella Urinary Antigen - Final Urine Negative Legionella Antigen Streptococcus pneumoniae Ag Screen - Final Negative S. pneumo Antigen Assess/Plan/Problems-Billing Assessment: 73W with CKD, DM II, HTN, PTSD, cog impairment, here with a mechanical fall and a right femoral neck fracture s/p screw 06/01. Patient while at OSH was found to be hypoxic and having LLL pneumonia. - Patient Problems (1) Pneumonia Comment: Diagnosed at outside hospital, in LLL per [facility] documentation. Urine antigens negative. - Continue CTX (05/31 - 06/06), s/p azithro x 3 days (2) Femoral neck fracture Comment: Due to Mechanical Fall. Dx'ed on MRI at OSH. No signs of distal vascular or neurological compromise. Now s/p closed repair with screw on 06/01. - Appreciate Orthopedic input - caution with pain regimen given significant renal impairment - PT (3) CKD stage 5 due to type 2 diabetes mellitus Comment: LANE possibly from poor PO, however no change after IVF. CKD from history of DM and HTN. [place] in place, no other signs of obstruction. - resume home torsemide (4) Anemia Comment: Likely due to CKD. - S/P 2u PRBC at OSH - F/U Nephrology to discuss possible epo - Transfuse PRN Below 8. (5) Constipation Comment: Chronic problem, worsened now from narcotics. - cont senna/MoM prns - enema today (6) Falls frequently Comment: Contributing to her presentation. - PT (7) Diabetes mellitus, type 2 Comment: HgbA1c 7.0% 03/2019. - home insulin glargine 50u held given occasional low blood glucose - initiate short-acting sliding scale to determine insulin requirements (8) HTN (hypertension) Comment: - continue home atenolol and amlodipine (9) Hypothyroidism Comment: - Continue levothyroxine (10) DVT prophylaxis Comment: - Lovenox SQ (11) Full code status Current Visit: Yes Status and Disposition: Inpatient for surgery.
[2019-06-03 07:24] LABS: Total Bilirubin 0.2 mg/dL (0.2-1.0)
[2019-06-03] MEDS: Aspirin EC TAB* 81 MG TAB.EC PO SCH (09:43)
[2019-06-03] MEDS: cefTRIAXone(*) 1 GM in NS 0.9% 50 ML* 50 ML IVPB SCH (09:43)
[2019-06-03] MEDS: amLODIPine TAB* 5 MG PO SCH (09:43)
[2019-06-03] MEDS: Magnesium Hydroxide LIQ* 30 ML UDC PO PRN ×2 (09:43→20:05)
[2019-06-03] MEDS: Sertraline* 25 MG TAB PO SCH (09:43)
[2019-06-03] MEDS: Atenolol TAB* 50 MG PO SCH (09:43)
[2019-06-03] MEDS: Insulin LISPRO* 1 UNITS UNIT SUBCUT SCH ×3 (09:44→17:11)
[2019-06-03] MEDS: Pantoprazole TAB * 40 MG TAB PO SCH (09:44)
[2019-06-03] MEDS: Enoxaparin(*) 30 MG/0.3 ML SYR SUBCUT SCH (09:45)
[2019-06-03] MEDS: Acetaminophen TAB* 325 MG PO PRN ×2 (09:48→23:55)
[2019-06-03] MEDS: Venlafaxine EXT RELEASE CAP* 75 MG PO SCH (09:49)
[2019-06-03] MEDS: Torsemide TAB* 20 MG PO SCH (09:50)
[2019-06-03] MEDS: Mometasone 220 MCG MDI INH SCH (09:53)
--- NOTE | 2019-06-03 09:58 | PN ---
Progress Note - Progress Note Date of Service: 06/03/19 SOAP: Subjective: [Pt with minimal c/o R hip pain at rest. Denies CP, SOB, Dizziness. ] Objective: [Much more alert today than yesterday, seated in bed eating breakfast. Rather confused about where she is and what's going on. R hip dressing changed. Surgical wound benign. No drainage or erythema. Distal gross motor and NV function intact. Calves soft, NT Vital Signs: Temp Pulse Resp BP Pulse Ox 97.1 F 71 18 171/74 97 06/03/19 08:01 06/03/19 08:01 06/03/19 08:01 06/03/19 08:01 06/03/19 08:01 Laboratory Results - last 24 hr 06/02/19 06/02/19 06/02/19 10:11 10:55 16:21 WBC RBC Hgb Hct MCV MCH MCHC RDW Plt Count MPV Sodium Potassium Chloride Carbon Dioxide Anion Gap BUN Creatinine Est GFR ( Amer) Est GFR (Non-Af Amer) BUN/Creatinine Ratio Glucose POC Glucose (mg/dL) 251 H 167 H Calcium Magnesium Total Bilirubin Direct Bilirubin Ammonia 51 Lactate Dehydrogenase 06/03/19 06/03/19 06/03/19 04:58 04:58 07:19 WBC 6.8 RBC 2.62 L Hgb 7.5 L Hct 22 L MCV 86 MCH 29 MCHC 34 RDW 15 Plt Count 259 MPV 7.9 Sodium 137 Potassium 4.5 Chloride 108 Carbon Dioxide 20 L Anion Gap 9 BUN 75 H Creatinine 4.66 H Est GFR ( Amer) 11.1 Est GFR (Non-Af Amer) 9.2 BUN/Creatinine Ratio 16.1 Glucose 131 H POC Glucose (mg/dL) 143 H Calcium 8.2 L Magnesium 2.4 Total Bilirubin 0.20 Direct Bilirubin 0.10 Ammonia Lactate Dehydrogenase 189 ] Assessment: [s/p ORIF R hip - cannulated screws.] Plan: [PT/OT - WBAT R LE Lovenox for DVT prophylaxis Pain management On abx for PNA Medicine following]
[2019-06-03] MEDS: oxyCODONE/Acetamin 5/325 MG* TAB PO PRN (20:05)
[2019-06-04 05:15] LABS: Hematocrit 23 % (35-47); Hemoglobin 7.8 g/dL (12.0-16.0); Mean Corpuscular HGB Conc 33 g/dL (31-36); Mean Corpuscular Hemoglobin 29 pg (27-31); Mean Corpuscular Volume 86 fL (80-97); Mean Platelet Volume 7.7 fL (7.4-10.4); Platelet Count 267 10^3/uL (150-450); Red Blood Count 2.73 10^6 /uL (3.70-4.87); Red Cell Distribution Width 15 % (10-15); White Blood Count 7.3 10^3/uL (3.5-10.8)
[2019-06-04 05:34] LABS: BUN/Creatinine Ratio 15.4 (8-20); Calcium 8.1 mg/dL (8.6-10.3); EGFR African American 11.2 (>60); EGFR Non-African American 9.2 (>60); Magnesium 2.4 mg/dL (1.9-2.7); Potassium 4.6 mmol/L (3.5-5.0)
[2019-06-04] MEDS: Levothyroxine TAB* 100 MCG TAB PO SCH (05:50)
--- NOTE | 2019-06-04 07:21 | PN ---
Subjective Date of Service: 06/04/19 Interval History: No acute events overnight. Creatinine and Hgb stable today. Pt denies SOB, chest pain. Reports R hip pain when standing. First day that patient is AOx4. Objective Active Medications: Acetaminophen (Tylenol Tab*) 975 mg PO Q12H PRN PRN Reason: Pain - Mild to Moderate Last Admin: 06/03/19 23:55 Dose: 975 mg Amlodipine Besylate (Norvasc Tab*) 10 mg PO [facility] Last Admin: 06/04/19 08:49 Dose: 10 mg Aspirin (Aspirin Ec Tab*) 81 mg PO [facility] Last Admin: 06/04/19 08:48 Dose: 81 mg Atenolol (Tenormin Tab*) 100 mg PO [facility] Last Admin: 06/04/19 08:49 Dose: 100 mg Cefdinir (Cefdinir Cap*) 300 mg PO BID [facility] Stop: 06/06/19 21:01 Cholecalciferol (Vitamin D Tab*) 2,000 units PO DAILY [facility] Last Admin: 06/04/19 13:52 Dose: 2,000 units Dextrose (Dextrose 50% Vial 50 Ml*) 25 ml IV PUSH .FOR FS < 60 - SS PRN PRN Reason: FS < 60 Enoxaparin Sodium (Lovenox(*)) 30 mg SUBCUT DAILY [facility] Stop: 07/01/19 09:01 Last Admin: 06/04/19 08:50 Dose: 30 mg Hydralazine HCl (Apresoline Iv*) 10 mg IV SLOW PU Q6H PRN PRN Reason: SBP>180 Last Admin: 06/01/19 20:31 Dose: 10 mg Insulin Human Lispro (Humalog*) 0 units SUBCUT AC [facility]; Protocol Last Admin: 06/04/19 13:13 Dose: 3 units Levothyroxine Sodium (Synthroid Tab*) 200 mcg PO 0600 [facility] Last Admin: 06/04/19 05:50 Dose: 200 mcg Magnesium Hydroxide (Milk Of Magnesia Liq*) 30 ml PO BID PRN PRN Reason: CONSTIPATION Last Admin: 06/03/19 20:05 Dose: 30 ml Melatonin (Melatonin) 3 mg PO BEDTIME PRN PRN Reason: Sleep Last Admin: 06/03/19 23:55 Dose: 3 mg Oxycodone/Acetaminophen (Percocet 5/325 Tab*) 1 tab PO Q8H PRN PRN Reason: PAIN - SEVERE Last Admin: 06/03/19 20:05 Dose: 1 tab Pantoprazole Sodium (Protonix Tab*) 40 mg PO [facility] Last Admin: 06/04/19 08:49 Dose: 40 mg Senna (Senokot 8.6 Mg Tab*) 2 tab PO BEDTIME PRN PRN Reason: if no BM during day Sertraline HCl (Zoloft*) 75 mg PO [facility] Last Admin: 06/04/19 08:49 Dose: 75 mg Torsemide (Demadex*) 40 mg PO [facility] Last Admin: 06/04/19 08:48 Dose: 40 mg Vital Signs - 8 hr 06/03/19 06/03/19 06/03/19 23:04 23:05 23:59 Temperature 97.6 F Pulse Rate 76 Respiratory 19 18 Rate Blood Pressure 160/70 (mmHg) O2 Sat by Pulse 96 96 Oximetry 06/04/19 06/04/19 01:42 04:33 Temperature 97.4 F Pulse Rate 76 Respiratory 18 Rate Blood Pressure 170/86 (mmHg) O2 Sat by Pulse 96 94 Oximetry Oxygen Devices in Use Now: Nasal Cannula Appearance: well appearing woman in NAD, speaking in full sentences, in good spirits Eyes: No Scleral Icterus, PERRLA Ears/Nose/Mouth/Throat: Clear Oropharnyx, Mucous Membranes Moist Neck: NL Appearance and Movements; NL JVP, Trachea Midline Respiratory: Symmetrical Chest Expansion and Respiratory Effort, Clear to Auscultation Cardiovascular: NL Sounds; No Murmurs; No JVD, RRR Abdominal: NL Sounds; No Tenderness; No Distention, No Hepatosplenomegaly Extremities: No Edema Skin: No Rash or Ulcers Neurological: Alert and Oriented x 3 Result Diagrams: 06/04/19 04:56 06/04/19 04:56 Microbiology and Other Data: Microbiology 06/02/19 10:30 Legionella Urinary Antigen - Final Urine Negative Legionella Antigen Streptococcus pneumoniae Ag Screen - Final Negative S. pneumo Antigen Assess/Plan/Problems-Billing Assessment: 73W with CKD, DM II, HTN, PTSD, cog impairment, here with a mechanical fall and a right femoral neck fracture s/p screw 06/01. Patient while at OSH was found to be hypoxic and having LLL pneumonia. - Patient Problems (1) Pneumonia Comment: Diagnosed at outside hospital, in LLL per [place] documentation. Urine antigens negative. - switch CTX to cefdinir to finish course (05/31 - 06/06), s/p azithro x 3 days (2) Femoral neck fracture Comment: Due to Mechanical Fall. Dx'ed on MRI at OSH. No signs of distal vascular or neurological compromise. Now s/p closed repair with screw on 06/01. - Appreciate Orthopedic input - caution with pain regimen given significant renal impairment - PT (3) CKD stage 5 due to type 2 diabetes mellitus Comment: LANE possibly from poor PO, however no change after IVF. CKD from history of DM and HTN. CPK and Renal US unremarkable. Could be from brief hypotension in OR. - resume home torsemide - appreciate renal consult (4) Anemia Comment: Likely due to CKD. - S/P 2u PRBC at OSH - nephrology not recommending EPO at this time - transfuse for < 7, as baseline seems to be 8-9 (5) Constipation Comment: Chronic problem, worsened now from narcotics. - cont senna/MoM prns (6) Falls frequently Comment: Contributing to her presentation. - PT (7) Diabetes mellitus, type 2 Comment: HgbA1c 7.0% 03/2019. - home insulin glargine 50u held given occasional low blood glucose - initiate short-acting sliding scale to determine insulin requirements (8) HTN (hypertension) Comment: - continue home atenolol and amlodipine (9) Hypothyroidism Comment: - Continue levothyroxine (10) DVT prophylaxis Comment: - Lovenox SQ (11) Full code status Current Visit: Yes Status and Disposition: Inpatient for surgery.
[2019-06-04 08:37] LABS: Uric Acid 6.9 mg/dL (2.3-6.6)
[2019-06-04] MEDS: Torsemide TAB* 20 MG PO SCH (08:48)
[2019-06-04] MEDS: Aspirin EC TAB* 81 MG TAB.EC PO SCH (08:48)
[2019-06-04] MEDS: Sertraline* 25 MG TAB PO SCH (08:49)
[2019-06-04] MEDS: Atenolol TAB* 50 MG PO SCH (08:49)
[2019-06-04] MEDS: Pantoprazole TAB * 40 MG TAB PO SCH (08:49)
[2019-06-04] MEDS: amLODIPine TAB* 5 MG PO SCH (08:49)
[2019-06-04] MEDS: Insulin LISPRO* 1 UNITS UNIT SUBCUT SCH ×3 (08:49→17:59)
[2019-06-04] MEDS: Mometasone 220 MCG MDI INH SCH (08:50)
[2019-06-04] MEDS: Enoxaparin(*) 30 MG/0.3 ML SYR SUBCUT SCH (08:50)
--- NOTE | 2019-06-04 09:34 | CONSULT ---
Consult Consult: Consult requested for: LANE on CKD. Consult requested by: Dr. Vazquez, Hospitalist Performed by Dr. Lorelei Robb, [facility] Nephrology 06/04/2019 73 yo WF Admitted 05/31 from [facility], s/p fall and a right femoral neck fracture s/p hip CRIF . On 06/01, underwent CRIF of Rt hip. She was later treated with Percocet for pain , contributed to change in mental status, dose had to be decreased. Patient developed LANE on CKD, sCr worsened: sCr 3.88~05/31, 3.92~06/01, 4.04~06/02, 4.66~06/03 & 4.62~06/[address] L[address] possibly ATN, related to drop in Hb post Op. Hb dropped 10.3~05/31, 8.6~, 8.4~06/02, 7.5~06/03 & 7.8~06/04. Has progressive CKD, sCr baseline 2.9-3.0, since 12/2018, with recurrent bouts of AKIs 3.38~02/2019 & 3.47~03/2019. Of note, she was restarted on her home torsemide 06/02, and within 24Hr later, sCr worsened?! Operative report report showed estimated blood loss 25 cc only! Patient today is confused and unable to give any reliable history. History was obtained from medical records. Of note, BP dropped 170 to 80 then back to 200 on 06/01 No documented drop in UOP. PMH: CKD as above HTN DM Type II on Insulin. Last A1c 7.0 03/2019. Dyslipidemia Hypothyroidism PTSD HomeMeds: Medication Instructions Recorded Confirmed Type Amlodipine Besylate [Norvasc] 10 mg PO QAM 05/17/19 05/31/19 History Aspirin EC TAB* [Ecotrin EC Low 81 mg PO QAM 05/17/19 05/31/19 History Dose 81 MG*] Atenolol TAB* [Tenormin TAB* 50 MG] 100 mg PO QAM 05/17/19 05/31/19 History Atorvastatin* [Lipitor 40 MG*] 20 mg PO BEDTIME 05/17/19 05/31/19 History Cetirizine* [ZyrTEC 10 MG TAB*] 10 mg PO QAM 05/17/19 05/31/19 History Fluticasone Furoate [Arnuity 1 puff INH QA 05/17/19 05/31/19 History Ellipta] Fluticasone NASAL SPRAY 50MCG* 1 spray BOTH NARES QA 05/17/19 05/31/19 History [Flonase NASAL SPRAY 50MCG*] Levothyroxine TAB* [Synthroid 100 200 mcg PO 0800 05/17/19 05/31/19 History MCG TAB*] Omeprazole CAP (NF) [Prilosec CAP* 20 mg PO QA 05/17/19 05/31/19 History 20 MG] Sertraline* [Zoloft*] 75 mg PO QA 05/17/19 05/31/19 History Simethicone [Gas Relief] 125 mg PO QID PRN 05/17/19 05/31/19 History Torsemide 40 mg PO QA 05/17/19 05/31/19 History Venlafaxine EXT RELEASE CAP* 150 mg PO [facility] 05/17/19 05/31/19 History [Effexor Xr CAP*] Acetaminophen [Pain Relief Extra 1,000 mg PO Q8HR PRN 05/31/19 05/31/19 History Strength] Insulin Glargine (Nf) [Toujeo 50 unit SUBCUT BEDTIME 05/31/19 05/31/19 History Solostar Pen (NF)] Hospital Meds: Acetaminophen (Tylenol Tab*) 975 mg PO Q12H PRN PRN Reason: Pain - Mild to Moderate Last Admin: 06/03/19 23:55 Dose: 975 mg Amlodipine Besylate (Norvasc Tab*) 10 mg PO [facility] Last Admin: 06/04/19 08:49 Dose: 10 mg Aspirin (Aspirin Ec Tab*) 81 mg PO [facility] Last Admin: 06/04/19 08:48 Dose: 81 mg Atenolol (Tenormin Tab*) 100 mg PO [facility] Last Admin: 06/04/19 08:49 Dose: 100 mg Dextrose (Dextrose 50% Vial 50 Ml*) 25 ml IV PUSH .FOR FS < 60 - SS PRN PRN Reason: FS < 60 Enoxaparin Sodium (Lovenox(*)) 30 mg SUBCUT DAILY [facility] Stop: 02/09/20 09:01 Last Admin: 06/04/19 08:50 Dose: 30 mg Hydralazine HCl (Apresoline Iv*) 10 mg IV SLOW PU Q6H PRN PRN Reason: SBP>180 Last Admin: 06/01/19 20:31 Dose: 10 mg Ceftriaxone Sodium 1 gm/ (Sodium Chloride) 50 mls @ 100 mls/hr IVPB Q24H [facility] Last Admin: 06/03/19 09:43 Dose: 100 mls/hr Insulin Human Lispro (Humalog*) [address] [facility]; Protocol Last Admin: 06/04/19 08:49 Dose: 6 units Levothyroxine Sodium (Synthroid Tab*) 200 mcg PO 0600 [facility] Last Admin: 06/04/19 05:50 Dose: 200 mcg Magnesium Hydroxide (Milk Of Magnesia Liq*) 30 ml PO BID PRN PRN Reason: CONSTIPATION Last Admin: 06/03/19 20:05 Dose: 30 ml Melatonin (Melatonin) 3 mg PO BEDTIME PRN PRN Reason: Sleep Last Admin: 06/03/19 23:55 Dose: 3 mg Mometasone Furoate (Asmanex 220 Mcg Mdi *) 1 puff INH [facility] Last Admin: 06/04/19 08:50 Dose: 1 puff Oxycodone/Acetaminophen (Percocet 5/325 Tab*) 1 tab PO Q8H PRN PRN Reason: PAIN - SEVERE Last Admin: 06/03/19 20:05 Dose: 1 tab Pantoprazole Sodium (Protonix Tab*) 40 mg PO [facility] Last Admin: 06/04/19 08:49 Dose: 40 mg Senna (Senokot 8.6 Mg Tab*) 1 tab PO BEDTIME PRN PRN Reason: if no BM during day Last Admin: 06/03/19 20:05 Dose: 1 tab Sertraline HCl (Zoloft*) 75 mg PO [facility] Last Admin: 06/04/19 08:49 Dose: 75 mg [facility]semide ([facility]adex*) [facility] Last Admin: 06/04/19 08:48 Dose: 40 mg Venlafaxine HCl (Effexor Xr Cap*) 75 mg PO [facility] Last Admin: 06/03/19 09:49 Dose: 75 mg Allergies: bupropion [From Wellbutrin] Allergy (Intermediate, Verified 05/17/19 17:14) Hives heparin Allergy (Verified 05/17/19 17:14) Hives hydrocodone Allergy (Verified 05/17/19 17:14) Rash metformin Allergy (Verified 05/17/19 17:14) Itching Social History: Denied Alcohol, smoking. No IVDA. Family History: Negative for Dialysis, ESRD or Renal Transplant. Positive for HTN & DM 12-Point Review of System obtained: Constitutional: No fever or weight changes Eyes No blurry vision. No red eye CV: No SOB at rest, no chest pain no syncope or edema. Not ambulating yet. Respiratory: No SOB at rest no cough no wheezing G.I: no diarrhea no nausea no vomiting no pain no blood per rectum no burning no obstruction symptoms Skin no rash Neurology No seizures or neurologic deficit Endocrine controlled diabetes, no heat or cold intolerance Hem/Lymphatic no bleeding no lymph nodes swelling Immune/Allergy no allergic reactions Musculoskeletal: Rt Hip dressing, no swelling Psych no anxiety no depression no hallucination Objective: Temp Pulse Resp BP Pulse Ox 97.5 F 89 18 145/68 92 06/04/19 08:00 06/04/19 08:00 06/04/19 08:00 06/04/19 08:00 06/04/19 08:00 10 Point multi system exam: Constitutional: Comfortable but Disoriented HEENT: No Conjunctivitis Abdomen Soft Abdomen No Ascites Heart: NSR, No LE Edema, No murmur Lungs: Clear to auscultation Extremities: No edema, no rash Skin no rash Neurology No deficit. CN intact Hem/Lymph: no palpable lymph nodes Musculoskeletal: No swelling Laboratory Reviewed Sodium 135 mmol/L (135-145) 06/04/19 04:56 Potassium 4.6 mmol/L (3.5-5.0) 06/04/19 04:56 BUN 71 mg/dL (6-24) H 06/04/19 04:56 Creatinine 4.62 mg/dL (0.51-0.95) H 06/04/19 04:56 Calcium 8.1 mg/dL (8.6-10.3) L 06/04/19 04:56 Magnesium 2.4 mg/dL (1.9-2.7) 06/04/19 04:56 Imaging: CXR: Congestion, Lt PLEF & interstitial Edema. Assessment and Plan: *LANE on CKD, in a setting of fall, hip surgery, dropping Hb, precipitous drop in BP & restarting Torsemide. All are causes of potential AKIs. *CKD: Slowly progressive over the last year with recurrent AKIs. LANE etiology likely ATN. Check CPK, t r/o Rabdo Renal US to r/o obstruction. sCr stabilized, at 4.6, maybe in plateau phase of LANE, will f/u No indication for [employer] or HD. *Anemia: Start EPO 10,000 u, to be continued once a month upon discharge, but currently advise PRBCs to keep Hb >8.0 as anemia is subacute. *Advise imaging to r/o hematoma collection. Electrolytes Ok Avoid or limit Opiates in LANE and advanced CKD, potential cause of acute change in mental state and respirator depression, note her O2 sat is dropping compared to on admission. BP Ok now, very labile, avoid precipitous drop in BP. Goal SBP 140-160. Fluid overload on CXR, agree with restarting Torsemide. Advise BNP. Avoid IVF Case discussed with Dr. Vazquez
[2019-06-04] MEDS: Venlafaxine EXT RELEASE CAP* 75 MG PO SCH (10:25)
[2019-06-04] MEDS: cefTRIAXone(*) 1 GM in NS 0.9% 50 ML* 50 ML IVPB SCH (10:25)
--- NOTE | 2019-06-04 10:43 | PN ---
Progress Note - Progress Note Date of Service: 06/04/19 SOAP: Subjective: [Pt was seen this morning sitting up in bed eating breakfast. She states that she is doing well. She spilled coffee this morning on her tray and is using the blankets to clean it up. ] Objective: [General: Pt is alert and awake. She does not realize who I am even though I explained a few times. She is in no acute distress MSK, RLE: dressing changed. Incision is c/d/i. +df/pf. NVI intact distally. No reaction with palpation of calf. ] Vital Signs Temp 97.5 F 06/04/19 08:00 Pulse 89 06/04/19 08:00 Resp 18 06/04/19 08:00 BP 145/68 06/04/19 08:00 Pulse Ox 92 06/04/19 08:00 Intake & Output 06/03/19 06/04/19 06/04/19 18:59 06:59 18:59 Intake Total 1288 740 140 Output Total 650 1220 150 Balance 638 -480 -10 Weight 223 lb 12.8 oz 220 lb 8 oz Intake: IV Fluids 30 NS (0.9%) 30 IVPB 58 ABX - CEFTRIAXONE 58 Oral 1200 740 140 Output: Urine 650 [place] 1220 150 Other: # Bowel Movements 1 Estimated Stool Amount Small Assessment: [s/p ORIF R hip - cannulated screws.] Plan: [PT/OT - WBAT R LE Lovenox for DVT prophylaxis Pain management On abx for PNA Medicine following]
[2019-06-04] MEDS: Cholecalciferol TAB* 1000 UNITS PO SCH (13:52)
[2019-06-04] MEDS ORDERED: Senna TAB 8.6 mg* TAB PO PRN (17:26)
[2019-06-04] MEDS: Acetaminophen TAB* 325 MG PO PRN (20:41)
[2019-06-04] MEDS: Magnesium Hydroxide LIQ* 30 ML UDC PO PRN (20:41)
[2019-06-05] MEDS: oxyCODONE/Acetamin 5/325 MG* TAB PO PRN ×2 (00:03→13:26)
[2019-06-05 05:33] LABS: Hematocrit 23 % (35-47); Hemoglobin 7.9 g/dL (12.0-16.0); Mean Corpuscular HGB Conc 35 g/dL (31-36); Mean Corpuscular Hemoglobin 29 pg (27-31); Mean Corpuscular Volume 84 fL (80-97); Mean Platelet Volume 7.1 fL (7.4-10.4); Platelet Count 278 10^3/uL (150-450); Red Blood Count 2.73 10^6 /uL (3.70-4.87); Red Cell Distribution Width 15 % (10-15); White Blood Count 6.3 10^3/uL (3.5-10.8)
[2019-06-05] MEDS: Levothyroxine TAB* 100 MCG TAB PO SCH (05:45)
[2019-06-05 05:57] LABS: BUN/Creatinine Ratio 15.3 (8-20); Calcium 8.1 mg/dL (8.6-10.3); EGFR African American 11.3 (>60); EGFR Non-African American 9.3 (>60); Magnesium 2.5 mg/dL (1.9-2.7); Potassium 3.9 mmol/L (3.5-5.0)
--- NOTE | 2019-06-05 07:15 | PN ---
Subjective Date of Service: 06/05/19 Interval History: No acute events overnight. Patient's renal function has stabilized and she is being titrated off oxygen, pending bed at [facility]. No issues on interview, in good spirits. Objective Active Medications: Acetaminophen (Tylenol Tab*) 975 mg PO Q12H PRN PRN Reason: Pain - Mild to Moderate Last Admin: 06/04/19 20:41 Dose: 975 mg Amlodipine Besylate (Norvasc Tab*) 10 mg PO [facility] Last Admin: 06/04/19 08:49 Dose: 10 mg Aspirin (Aspirin Ec Tab*) 81 mg PO [facility] Last Admin: 06/04/19 08:48 Dose: 81 mg Atenolol (Tenormin Tab*) 100 mg PO [facility] Last Admin: 06/04/19 08:49 Dose: 100 mg Cefdinir (Cefdinir Cap*) 300 mg PO BID [facility] Stop: 06/06/19 21:01 Cholecalciferol (Vitamin D Tab*) 2,000 units PO DAILY [facility] Last Admin: 06/04/19 13:52 Dose: 2,000 units Dextrose (Dextrose 50% Vial 50 Ml*) 25 ml IV PUSH .FOR FS < 60 - SS PRN PRN Reason: FS < 60 Enoxaparin Sodium (Lovenox(*)) 30 mg SUBCUT DAILY [facility] Stop: 07/01/19 09:01 Last Admin: 06/04/19 08:50 Dose: 30 mg Hydralazine HCl (Apresoline Iv*) 10 mg IV SLOW PU Q6H PRN PRN Reason: SBP>180 Last Admin: 06/01/19 20:31 Dose: 10 mg Insulin Human Lispro (Humalog*) 0 units SUBCUT AC [facility]; Protocol Last Admin: 06/04/19 17:59 Dose: 3 units Levothyroxine Sodium (Synthroid Tab*) 200 mcg PO 0600 [facility] Last Admin: 06/05/19 05:45 Dose: 200 mcg Magnesium Hydroxide (Milk Of Magnesia Liq*) 30 ml PO BID PRN PRN Reason: CONSTIPATION Last Admin: 06/04/19 20:41 Dose: 30 ml Melatonin (Melatonin) 3 mg PO BEDTIME PRN PRN Reason: Sleep Last Admin: 06/03/19 23:55 Dose: 3 mg Oxycodone/Acetaminophen (Percocet 5/325 Tab*) 1 tab PO Q8H PRN PRN Reason: PAIN - SEVERE Last Admin: 06/05/19 00:03 Dose: 1 tab Pantoprazole Sodium (Protonix Tab*) 40 mg PO [facility] Last Admin: 06/04/19 08:49 Dose: 40 mg Senna (Senokot 8.6 Mg Tab*) 2 tab PO BEDTIME PRN PRN Reason: if no BM during day Sertraline HCl (Zoloft*) 75 mg PO [facility] Last Admin: 06/04/19 08:49 Dose: 75 mg Torsemide (Demadex*) 40 mg PO [facility] Last Admin: 06/04/19 08:48 Dose: 40 mg Vital Signs - 8 hr 06/05/19 06/05/19 06/05/19 00:03 00:05 00:48 Temperature 95.5 F 97.3 F Pulse Rate 70 Respiratory 16 18 Rate Blood Pressure 130/72 (mmHg) O2 Sat by Pulse 94 Oximetry 06/05/19 06/05/19 06/05/19 04:11 04:47 05:42 Temperature 97.1 F Pulse Rate 76 Respiratory 18 16 Rate Blood Pressure 140/74 (mmHg) O2 Sat by Pulse 98 98 Oximetry Oxygen Devices in Use Now: Nasal Cannula Appearance: no acute distress, pleasant and interactive, sitting in chair Eyes: No Scleral Icterus Ears/Nose/Mouth/Throat: Clear Oropharnyx, Mucous Membranes Moist Neck: NL Appearance and Movements; NL JVP, Trachea Midline Respiratory: Symmetrical Chest Expansion and Respiratory Effort, Clear to Auscultation Cardiovascular: NL Sounds; No Murmurs; No JVD, RRR Abdominal: NL Sounds; No Tenderness; No Distention, No Hepatosplenomegaly Extremities: No Edema Neurological: Alert and Oriented x 3 Result Diagrams: 06/05/19 05:24 06/05/19 05:24 Microbiology and Other Data: Microbiology 06/02/19 10:30 Legionella Urinary Antigen - Final Urine Negative Legionella Antigen Streptococcus pneumoniae Ag Screen - Final Negative S. pneumo Antigen Assess/Plan/Problems-Billing Assessment: 73W with CKD, DM II, HTN, PTSD, cog impairment, here with a mechanical fall and a right femoral neck fracture s/p screw 06/01. Patient while at OSH was found to be hypoxic and having LLL pneumonia. - Patient Problems (1) Pneumonia Comment: Diagnosed at outside hospital, in LLL per [place] documentation. Urine antigens negative. - switch CTX to cefdinir to finish course (05/31 - 06/06), s/p azithro x 3 days (2) Femoral neck fracture Comment: Due to Mechanical Fall. Dx'ed on MRI at OSH. No signs of distal vascular or neurological compromise. Now s/p closed repair with screw on 06/01. - Appreciate Orthopedic input - caution with pain regimen given significant renal impairment - PT (3) CKD stage 5 due to type 2 diabetes mellitus Comment: LANE possibly from poor PO, however no change after IVF. CKD from history of DM and HTN. CPK and Renal US unremarkable. Could be from brief hypotension in OR. - resume home torsemide - appreciate renal consult (4) Anemia Comment: Likely due to CKD. - S/P 2u PRBC at OSH - nephrology not recommending EPO at this time - transfuse for < 7, as baseline seems to be 8-9 (5) Constipation Comment: Chronic problem, worsened now from narcotics. - cont senna/MoM prns (6) Falls frequently Comment: Contributing to her presentation. - PT (7) Diabetes mellitus, type 2 Comment: HgbA1c 7.0% 03/2019. - home insulin glargine 50u held given occasional low blood glucose - initiate short-acting sliding scale to determine insulin requirements (8) HTN (hypertension) Comment: - continue home atenolol and amlodipine (9) Hypothyroidism Comment: - Continue levothyroxine (10) DVT prophylaxis Comment: - Lovenox SQ (11) Full code status Current Visit: Yes Status and Disposition: Inpatient for surgery.
[2019-06-05] MEDS: Insulin LISPRO* 1 UNITS UNIT SUBCUT SCH ×2 (07:32→12:57)
[2019-06-05] MEDS ORDERED: Cefdinir cap* 300 MG CAP PO SCH (09:00)
--- NOTE | 2019-06-05 09:07 | PN ---
Progress Note - Progress Note Date of Service: 06/05/19 Note: Inpatient Nephrology FU Note: Performed by Dr. Lorelei Robb, [facility] Nephrology 06/05/2019 73 yo WF s/p fall and a right femoral neck fracture & Rt Hip CRIF . s/p LANE on CKD Last BUN/sCr 70/4.59~06/05/2019 71/4.62~06/04 75/4.66~06/03 68/4.04~06/02 58/3.92~06/01 60/3.88~05/[address] L[address] likely ATN 2/2 to multifactorial, mainly as SBP dropped 170 to 80 then back to 200 on 06/01/2019 CPK normal sCr is trending downwards slowly, after peak sCr 4.66 Note that torsemide home dose, was restarted 05/23 UACR 3 g/d. likely DM Kidney Disease. UA 0 RBCs. Hb stable 7.9/23 was 7.8/23 Volume status mild fluid overload, as BNP 700 on Torsemide Active Medications: Acetaminophen (Tylenol Tab*) 975 mg PO Q12H PRN PRN Reason: Pain - Mild to Moderate Last Admin: 06/04/19 20:41 Dose: 975 mg Amlodipine Besylate (Norvasc Tab*) 10 mg PO QAM [facility] Last Admin: 06/04/19 08:49 Dose: 10 mg Aspirin (Aspirin Ec Tab*) 81 mg PO QAM [facility] Last Admin: 06/04/19 08:48 Dose: 81 mg Atenolol (Tenormin Tab*) 100 mg PO QAM [facility] Last Admin: 06/04/19 08:49 Dose: 100 mg Cefdinir (Cefdinir Cap*) 300 mg PO BID [facility] Stop: 06/06/19 21:01 Cholecalciferol (Vitamin D Tab*) 2,000 units PO DAILY [facility] Last Admin: 06/04/19 13:52 Dose: 2,000 units Dextrose (Dextrose 50% Vial 50 Ml*) 25 ml IV PUSH .FOR FS < 60 - SS PRN PRN Reason: FS < 60 Enoxaparin Sodium (Lovenox(*)) 30 mg SUBCUT DAILY [facility] Stop: 07/01/19 09:01 Last Admin: 06/04/19 08:50 Dose: 30 mg Insulin Human Lispro (Humalog*) 0 units SUBCUT [facility]; Protocol Last Admin: 06/05/19 07:32 Dose: Not Given Levothyroxine Sodium (Synthroid Tab*) 200 mcg PO 0600 [facility] Last Admin: 06/05/19 05:45 Dose: 200 mcg Magnesium Hydroxide (Milk Of Magnesia Liq*) 30 ml PO BID PRN PRN Reason: CONSTIPATION Last Admin: 06/04/19 20:41 Dose: 30 ml Melatonin (Melatonin) 3 mg PO BEDTIME PRN PRN Reason: Sleep Last Admin: 06/03/19 23:55 Dose: 3 mg Oxycodone/Acetaminophen (Percocet 5/325 Tab*) 1 tab PO Q8H PRN PRN Reason: PAIN - SEVERE Last Admin: 06/05/19 00:03 Dose: 1 tab Pantoprazole Sodium (Protonix Tab*) 40 mg PO [facility] Last Admin: 06/04/19 08:49 Dose: 40 mg Senna (Senokot 8.6 Mg Tab*) 2 tab PO BEDTIME PRN PRN Reason: if no BM during day Sertraline HCl (Zoloft*) 75 mg PO [facility] Last Admin: 06/04/19 08:49 Dose: 75 mg Torsemide (Demadex*) 40 mg PO [facility] Last Admin: 06/04/19 08:48 Dose: 40 mg 10 Point multi system exam: Temp Pulse Resp BP Pulse Ox 96.7 F 66 18 154/70 96 06/05/19 08:00 06/05/19 08:00 06/05/19 08:00 06/05/19 08:00 06/05/19 08:00 Constitutional: Comfortable HEENT: No Conjunctivitis Abdomen Soft Abdomen No Ascites Heart: NSR, No LE Edema, No murmur Lungs: Clear to auscultation Extremities: No edema, no rash Skin no rash Neurology No deficit. CN intact Hem/Lymph: no palpable lymph nodes Musculoskeletal: No swelling Laboratory Reviewed Sodium 137 mmol/L (135-145) 06/05/19 05:24 Potassium 3.9 mmol/L (3.5-5.0) 06/05/19 05:24 BUN 70 mg/dL (6-24) H 06/05/19 05:24 Creatinine 4.59 mg/dL (0.51-0.95) H 06/05/19 05:24 Calcium 8.1 mg/dL (8.6-10.3) L 06/05/19 05:24 Magnesium 2.5 mg/dL (1.9-2.7) 06/05/19 05:24 Assessment and Plan: LANE on CKD, etiology as above. sCr slowly better. CKD was progressive with recurrent AKIs and UACR 3 g/d likely 2/2 DM No Rabdo & no HN No indication for [employer] or HD. Electrolytes Ok BP Ok Fluid overload on CXR & high BNP, keep Torsemide.
[2019-06-05] MEDS: Cholecalciferol TAB* 1000 UNITS PO SCH (09:52)
[2019-06-05] MEDS: Torsemide TAB* 20 MG PO SCH (09:52)
[2019-06-05] MEDS: Aspirin EC TAB* 81 MG TAB.EC PO SCH (09:53)
[2019-06-05] MEDS: amLODIPine TAB* 5 MG PO SCH (09:53)
[2019-06-05] MEDS: Pantoprazole TAB * 40 MG TAB PO SCH (09:53)
[2019-06-05] MEDS: Sertraline* 25 MG TAB PO SCH (09:54)
[2019-06-05] MEDS: Atenolol TAB* 50 MG PO SCH (09:54)
[2019-06-05] MEDS: Enoxaparin(*) 30 MG/0.3 ML SYR SUBCUT SCH (09:54)
[2019-06-05 11:11] VITALS: BP 158/72
--- NOTE | 2019-06-05 12:11 | PN ---
Progress Note - Progress Note Date of Service: 06/05/19 SOAP: Subjective: []Pt seen at bedside. She reports well controlled right hip pain and motivation to get back to her baseline. Denies CP, SOB, dizziness, nausea. Confirms continued cough. Objective: []Gen: NAD, carrying on appropriate conversation, recalls events around her surgery, remembers who I am RLE: Dressing changed incision CDI without discharge or erythema. Thigh soft, DF /PF intact, DP2+, sensation intact to light touch distally Calves supple and nontender without erythema, edema or palpable cords Assessment: [s/p ORIF R hip - cannulated screws] Plan: [PT/OT - WBAT RLE. OOB to chair Lovenox for DVT prophylaxis 30 days post op Ready for DC from ortho standpoint with fu 2 weeks post op. ortho dc details placed ni discharge instructions. Vital Signs Temp 95.7 F 06/05/19 11:10 Pulse 72 06/05/19 11:10 Resp 17 06/05/19 11:10 BP 158/72 06/05/19 11:10 Pulse Ox 96 06/05/19 11:10 Intake & Output 06/04/19 06/05/19 06/05/19 18:59 06:59 18:59 Intake Total 500 360 Output Total 350 650 Balance 150 -290 Weight 218 lb 14.4 oz Intake: Oral 500 360 Output: Urine 200 650 [place] 150 Other: Estimated Void Small # Bowel Movements 1 Estimated Stool Amount Small # Voids 1 Laboratory Last Values WBC 6.3 10^3/uL (3.5-10.8) 06/05/19 05:24 RBC 2.73 10^6 /uL (3.70-4.87) L 06/05/19 05:24 Hgb 7.9 g/dL (12.0-16.0) L 06/05/19 05:24 Hct 23 % (35-47) L 06/05/19 05:24 MCV 84 fL (80-97) 06/05/19 05:24 MCH 29 pg (27-31) 06/05/19 05:24 MCHC 35 g/dL (31-36) 06/05/19 05:24 RDW 15 % (10-15) 06/05/19 05:24 Plt Count 278 10^3/uL (150-450) 06/05/19 05:24 MPV 7.1 fL (7.4-10.4) L 06/05/19 05:24 Neut % (Auto) 91.3 % 06/02/19 04:51 Lymph % (Auto) 2.5 % 06/02/19 04:51 [place] % (Auto) 3.6 % 06/02/19 04:51 Eos % (Auto) 1.8 % 06/02/19 04:51 Baso % (Auto) 0.8 % 06/02/19 04:51 Absolute Neuts (auto) 11.7 10^3/ul (1.5-7.7) H 06/02/19 04:51 Absolute Lymphs (auto) 0.3 10^3/ul (1.0-4.8) L 06/02/19 04:51 Absolute Monos (auto) 0.5 10^3/ul (0-0.8) 06/02/19 04:51 Absolute Eos (auto) 0.2 10^3/ul (0-0.6) 06/02/19 04:51 Absolute Basos (auto) 0.1 10^3/ul (0-0.2) 06/02/19 04:51 Absolute Nucleated RBC 0.0 10^3/ul 06/02/19 04:51 Nucleated RBC % 0.1 06/02/19 04:51 INR (Anticoag Therapy) 1.17 (0.82-1.09) H 06/01/19 06:55 Sodium 137 mmol/L (135-145) 06/05/19 05:24 Potassium 3.9 mmol/L (3.5-5.0) 06/05/19 05:24 Chloride 104 mmol/L (101-111) 06/05/19 05:24 Carbon Dioxide 23 mmol/L (22-32) 06/05/19 05:24 Anion Gap 10 mmol/L (2-11) 06/05/19 05:24 BUN 70 mg/dL (6-24) H 06/05/19 05:24 Creatinine 4.59 mg/dL (0.51-0.95) H 06/05/19 05:24 Est GFR ( Amer) 11.3 (>60) 06/05/19 05:24 Est GFR (Non-Af Amer) 9.3 (>60) 06/05/19 05:24 BUN/Creatinine Ratio 15.3 (8-20) 06/05/19 05:24 Glucose 125 mg/dL (70-100) H 06/05/19 05:24 POC Glucose (mg/dL) 168 mg/dL (70-100) H 06/04/19 16:41 Uric Acid 6.9 mg/dL (2.3-6.6) H 06/04/19 04:56 Calcium 8.1 mg/dL (8.6-10.3) L 06/05/19 05:24 Magnesium 2.5 mg/dL (1.9-2.7) 06/05/19 05:24 Total Bilirubin 0.20 mg/dL (0.2-1.0) 06/03/19 04:58 Direct Bilirubin 0.10 mg/dL (0.03-0.18) 06/03/19 04:58 Ammonia 51 mcmol/L (16-53) 06/02/19 10:55 Lactate Dehydrogenase 189 U/L (140-271) 06/03/19 04:58 Total Creatine Kinase 35 U/L (10-223) 06/04/19 04:56 B-Natriuretic Peptide 711 pg/mL (<=100) H 06/05/19 05:24 TSH 1.89 mcIU/mL (0.34-5.60) 05/31/19 16:20 Free T4 0.89 ng/dL (0.61-1.12) 05/31/19 16:20
--- NOTE | 2019-06-05 13:52 | DS ---
DATE OF ADMISSION: 05/31/2019. DATE OF DISCHARGE: 06/05/2019. PRIMARY CARE PHYSICIAN: Mark Anthony Gary provider. PRIMARY DIAGNOSES: 1. Right femoral neck fracture. 2. Pneumonia. SECONDARY DIAGNOSES: 1. CKD. 2. Diabetes, on insulin. 3. Hypertension. 4. PTSD. CONSULTATIONS: Dr. Kari Robb of Nephrology; Dr. Kevin Hahn of Orthopedic Surgery. PROCEDURE: A closed reduction and internal fixation of the right femoral neck, hip fracture with cannulated screws. DISCHARGE MEDICATIONS: 1. Cefdinir 300 mg twice a day to end on the evening of June 06. 2. Torsemide 40 mg daily. 3. Insulin Glargine 10 units at bedtime. 4. Amlodipine 10 mg daily. 5. Levothyroxine 200 mcg daily. 6. Omeprazole 20 mg daily. 7. Atenolol 100 mg daily. 8. Aspirin 81 mg daily. 9. Sertraline 75 mg daily. 10. MiraLax 17 gm daily as needed for constipation. 11. Milk of Magnesia 30 ml p.o. twice a day as needed for constipation. 12. Senna two tablets at bedtime as needed if no bowel movement during the day. 13. Vitamin D 2,000 units daily. 14. Fluticasone nasal spray one spray to both nares daily. 15. Melatonin 3 mg at bedtime. 16. Acetaminophen 1 gm every 8 hours as needed for pain. 17. Lovenox 30 mg daily until July 01. HISTORY OF PRESENT ILLNESS: Ms. Montemayor is a 73-year-old woman with CKD, DM-2, hypertension, PTSD, and cognitive impairment who was transferred from [facility] for a right hip fracture. She presented to [facility] three days prior to transfer to [place] with complaints of a fall and hip pain. She was admitted to the hospital despite having a negative x-ray for a hip fracture; however, she was unable to ambulate. Initially, her pain improved; however, it again flared up and she underwent a CT of the pelvis which revealed a possible hip fracture. An MRI was then obtained which confirmed that she did indeed have a right hip fracture. As this required Orthopedic intervention, [facility] was contacted for an admission. On the night prior to transfer, she developed new oxygen requirements of 6 liters. The patient reported only a mild occasional dry cough. She did have a recorded fever at [facility], but no leukocytosis. She was started on Ceftriaxone and Azithromycin for possible community-acquired pneumonia. HOSPITAL COURSE: Upon admission to [facility], the patient states that she felt well, except for pain in her right hip. She had no shortness of breath. By the next day, the patient had undergone a closed reduction internal fixation with cannulated screws. During that procedure, the patient may have had transient hypotension as it was noted that her creatinine increased to 4.6 after the procedure. However, of note, on presentation to [facility] before the procedure, her creatinine was 3.88 which is already slightly above her baseline of around 3. After the procedure, the patient was given narcotics which were believed to have caused her significant altered mental status. For the following few days, she was pleasant, but occasionally disoriented and had experienced visual hallucinations. Her labs were without significant abnormality. Her vital signs were stable and she was able to be titrated off oxygen. Given more time to metabolize narcotics in the setting of CKD, the patient eventually was reoriented, knew the date and location, and was able to have a normal conversation. She continued IV Ceftriaxone, finished a course of azithromycin, and was switched to oral Cefdinir. She was discharged with approximately one more day of antibiotics to complete the course. She was seen and evaluated by Physical Therapy who recommended rehab on discharge. She was seen and evaluated by Nephrology given her increased creatinine. The patient did not have an elevated CPK or concerning findings on renal ultrasound. She was not on any nephrotoxic medications. It was recommended that she continue on her home dose of Torsemide and follow-up in the Nephrology Clinic. Of note, the patient did receive two units of packed red blood cells at [facility] before transfer and upon presentation to [facility] her hemoglobin was noted to be 10.3 which is above her typical base. However, throughout her hospital here, the patient drifted down to around 7.5 to 8 which does seem to be closer to her baseline and she was stable at that level. An EPO was not administered during hospitalization and was differed to outpatient Nephrology provider. Plan from Ortho was to follow-up two weeks postop and to continue physical therapy with weightbearing as tolerated in the right lower extremity and to encourage out of bed to chair. She should also remain on Lovenox for 30 days postop. PERTINENT STUDIES: 1. CBC notable for hemoglobin 8 with normal WBC and platelets. 2. BMP notable for creatinine 4.6 on discharge with BUN 70. 3. TSH 1.9. 4. Lung VQ scan: Negative for PE. 5. Transthoracic echocardiogram: LV cavity size is normal. Wall thickness is mildly increased. Systolic function is normal with the estimated EF of 55 to 60 percent. Wall motion is normal without regional wall motion abnormalities. RV cavity size is normal. Systolic function is normal. LA is normal in size. Moderate MV regurgitation. Pulmonary systolic pressure cannot be accurately estimated. Compared to study from December 2017, findings are similar. 6. Ankle x-ray of the right, three views, with osteopenia, osteoarthritis, no acute osseous injury. 7. Hip right, two views, and pelvis: Three lag screws traverse the mildly impacted subcapital femoral neck fracture, the hip is normally located, overlying soft tissue edema and cutaneous pernell. 8. Chest x-ray with pulmonary vascular congestion, interstitial edema, and associated pleural effusions. 9. Renal ultrasound: Negative for obstructive uropathy, mild bilateral renal cortical atrophy, and mildly increased cortical echogenicity favoring medical renal disease. DISCHARGE PLAN: The patient will continue to follow-up with her PCP. She should have ongoing fingersticks and A1c monitoring for her history of diabetes, for which she is only on long-acting insulin monotherapy and this should be titrated as able. Consider oral medications, instead. For her hip fracture, status post closed reduction internal fixation with cannulated screws. She will remain on Lovenox until 30 days postoperatively. Her last day will be July 01. She should be weightbearing as tolerated on the right lower extremity and she is being discharged to a rehab facility. She should follow-up two weeks postop with Dr. Hahn. For pneumonia, the patient has one more day of oral antibiotics and she should complete Cefdinir 300 mg twice a day on June 06. For her progressive CKD, she should follow-up with Nephrology and have ongoing monitoring of her volume status with daily weights as well as intermittent monitoring of her electrolytes and renal function. Throughout the hospitalization, the patient did have issues with constipation which seems like a chronic issue and she was discharged with a significant bowel regimen to use as needed. The patient was educated on return precautions which include, but are not limited to recurrence of fever, hypoxemia, or worsening leg pain. She should eat a healthy diet, low in carbohydrates and resume activity as tolerated per rehab. DISPOSITION: To [facility]. CONDITION ON DISCHARGE: Improved. TIME SPENT: Approximately 60 minutes were spent on the discharge of this patient, more than half of which was spent with care coordination at bedside for interview and exam. [id number]/CPS #: [id number] AZAEL
== END 2019-06-05 16:25 | DRG 480 ==
LOC: SSU 13:32
PROVIDERS: ADMIT Hospitalist; ATTEND Internal Medicine
PROC: 0QS634Z Reposition Right Upper Femur with Internal Fixation Device, Percutaneous Approach (ICD-10-PCS; principal; 2019-06-01 16:00)
DX: S72.001A Fracture of unspecified part of neck of right femur, initial encounter for closed fracture (principal); J18.9 Pneumonia, unspecified organism; J96.01 Acute respiratory failure with hypoxia; N17.9 Acute kidney failure, unspecified; N18.5 Chronic kidney disease, stage 5; I12.0 Hypertensive chronic kidney disease with stage 5 chronic kidney disease or end stage renal disease; W19.XXXA Unspecified fall, initial encounter; E11.22 Type 2 diabetes mellitus with diabetic chronic kidney disease; F43.10 Post-traumatic stress disorder, unspecified; R29.6 Repeated falls; R44.1 Visual hallucinations; D63.1 Anemia in chronic kidney disease; F32.9 Major depressive disorder, single episode, unspecified; K21.9 Gastro-esophageal reflux disease without esophagitis; E66.9 Obesity, unspecified; E78.5 Hyperlipidemia, unspecified; E03.9 Hypothyroidism, unspecified; E87.70 Fluid overload, unspecified; K59.00 Constipation, unspecified; G89.29 Other chronic pain; Z88.5 Allergy status to narcotic agent; Z88.6 Allergy status to analgesic agent; Y92.9 Unspecified place or not applicable; Z79.82 Long term (current) use of aspirin; Z79.899 Other long term (current) drug therapy; Z79.4 Long term (current) use of insulin; Z79.890 Hormone replacement therapy; Z86.711 Personal history of pulmonary embolism; Z87.891 Personal history of nicotine dependence; Z85.3 Personal history of malignant neoplasm of breast; Z88.8 Allergy status to other drugs, medicaments and biological substances; Z68.35 Body mass index [BMI] 35.0-35.9, adult
CPT/HCPCS: 36415; 71046; 76000; 76775; 78582; 80048; 82140; 82247; 82248; 82550; 83615; 83735; 83880; 84439; 84443; 84550; 85025; 85027; 85610; 87899; 93306; 94640; A9270-GY; A9540; A9558; C1713; C1776; C8929; J0360; J0456; J0696; J1650; J2250; J2270; J2704; J3010

== ENCOUNTER 2019-06-26 12:19 | Inpatient (IN) | payer MEDICARE ==
[2019-06-26] MEDS ORDERED: Clindamycin 600 MG/D5W BAG(*) 600 MG/50 ML BAG IV ONE (14:00)
[2019-06-26 14:07] LABS: INR 0.96 (0.82-1.09)
[2019-06-26] MEDS ORDERED: Lidocaine 1% INJ* 10 MG/ML 30 ML SDV ONE (14:33)
[2019-06-26] MEDS ORDERED: fentaNYL* 50 MCG/ML 2 ML VIAL (100 MCG VIAL) ONE (14:46)
[2019-06-26] MEDS ORDERED: Midazolam* 1 MG/ML 5 ML VIAL (5 MG) ONE (14:46)
--- NOTE | 2019-06-26 15:52 | OP ---
Operative Report - Blank - Operative Report Date of Operation: 06/26/19 Note: Procedure Note TDC: Performed by Dr. Lexie Robb, [facility] Nephrology 06/26/2019 Right Internal Jugular Tunneled Hemodialysis Catheter Placement Note: Procedure indication: ESRD needs Hemodialysis penitentiary Access. Consent was obtained, in chart. Patient understands risks, benefits, alternatives and wants to proceed. Received Clindamycin 600 mg IVPB before starting. Rt IJV patency was checked by US. Following strict hand hygiene and standard sterile precautions, a full sterile attire for myself and all personnel involved in the procedure, including a gown, cap, face mask with an eye shield, and double sterile gloves. The procedure started with 2 ID time out after marking the new proposed venotomy site. Patient was put in Trendelenburg position. Vascular US was used during the procedure. Right Neck and Chest were prepped with 2% Chlorhexidine, and the surgical field was surrounded by sterile surgical towels. A sterile full body drape was placed to cover the patient from head to toe. Rt IJ was chosen. Under real time US guidance the Rt IJV was accessed by a 21-G needle, then a 0.018 micro wire was threaded through the 21-G needle into the vein and the 21- G needle was pulled out, leaving the micro wire in, confirmed in the IJ-SVC by Fluoro, then a 4-Fr sheath and inner stylet were passed over the micro wire into the vein. Skin near the venotomy was nicked using # 11 Blade and extended to 0.5 cm long, then was dilated using a curved Tali. Bleeding was controlled by pressure over the dilated venotomy site. A 19 cm Angiomax TDC was chosen. The proposed tunnel & exit site were numbed thoroughly with 10 cc of 1% Lidocaine w/o Epi. The exit site was created using # 11 Blade and extended to 0.5 cm long. Exit was dissected bluntly using a curved Tali. A blunt tunneler was bent and used to pull the TDC from the exit site to the venotomy site and was placed just behind the 4-Fr sheath Both, the micro wire and the inner stylet were removed and the 4-Fr sheath was kept in place. Then, a 0.035 Amplatz wire was passed through the 4- Fr sheath into the central circulation, confirmed by Fluoro in the Rt Atrium. Sequential dilatation of the venotomy using 12 then 14 Fr the 16 Fr dilator and peel away sheath after the 4-Fr sheath was removed. Dilator and wire were removed and the 19 cm Angiomax TDC was fed through the peel away sheath that was peel away carefully. Tip of TDC Catheter seen under Fluoro at the Cavo-atrial junction to Rt Atrium Both ports checked for flow and draw and both worked very well then flushed again with saline. Heparin not used as she's allergic Caps were applied over both ports. The catheter was secured and tethered in place using 2-0 Prolene sutures at the exit site. The venotomy site was repaired using 3-0 Vicryl. A retention 2-0 Prolene suture was used as she was oozing from the exit site. Upright CXR ordered stat to r/o any complications. Complications: None Estimated Bleeding: < 5cc Will start HD Tomorrow Fluoro Time: 0.3 min IV Contrast: Zero Radiation Exposure: 9 mGy Pre Op Meds: Clindamycin 600 mg IVPB pre Op. Fentanyl: 25 Mcg Versed: 0.25 mg She tolerated procedure well and well be transferred to 4th floor
[2019-06-26] MEDS ORDERED: Magnesium Hydroxide LIQ* 30 ML UDC PO PRN (17:49)
[2019-06-26] MEDS ORDERED: Senna TAB 8.6 mg* TAB PO PRN (17:49)
[2019-06-26] MEDS ORDERED: Polyethylene Glycol 3350* 17 GM PACKET PO PRN (17:49)
[2019-06-26] MEDS ORDERED: Melatonin 3 MG TAB PO PRN (17:49)
[2019-06-26] MEDS ORDERED: Dextrose 50% Syringe 50 ML* 25 GM/50 ML SYRINGE IV PUSH PRN (17:59)
[2019-06-26 18:44] LABS: ABS Basophils 0.1 10^3/ul (0-0.2); ABS Eosinophils 0.3 10^3/ul (0-0.6); ABS Monocytes 0.4 10^3/ul (0-0.8); ABS Neutrophils 7.6 10^3/ul (1.5-7.7); Eosinophil % 3.5 %; Hematocrit 32 % (35-47); Hemoglobin 10.5 g/dL (12.0-16.0); Lymphocyte % 10.5 %; Mean Corpuscular HGB Conc 33 g/dL (31-36); Mean Corpuscular Hemoglobin 29 pg (27-31); Mean Corpuscular Volume 86 fL (80-97); Mean Platelet Volume 7.1 fL (7.4-10.4); Nucleated Red Blood Cells % 0.1; Platelet Count 324 10^3/uL (150-450); Red Blood Count 3.68 10^6 /uL (3.70-4.87); Red Cell Distribution Width 15 % (10-15); White Blood Count 9.4 10^3/uL (3.5-10.8)
[2019-06-26] MEDS: Insulin LISPRO* 1 UNITS UNIT SUBCUT SCH (18:52)
[2019-06-26 19:00] LABS: BUN/Creatinine Ratio 15.6 (8-20); Calcium 8.8 mg/dL (8.6-10.3); EGFR Non-African American 9.9 (>60); Potassium 4.5 mmol/L (3.5-5.0)
[2019-06-26] MEDS ORDERED: hydrALAZINE IV* 20 MG/ML VIAL IV SLOW PU PRN (19:40)
[2019-06-26] MEDS: Gabapentin CAP(*) 100 MG PO SCH (20:12)
[2019-06-26] MEDS: QUEtiapine TAB* 25 MG PO SCH (20:12)
[2019-06-26] MEDS: traMADol TAB* 50 MG PO PRN (20:12)
[2019-06-26] MEDS: Insulin GLARGINE(*) 1 UNITS UNIT SUBCUT SCH (20:12)
[2019-06-26] MEDS: Lidocaine PATCH 5%* 1 PATCH TRANSDERM PRN (23:00)
[2019-06-26] MEDS: Acetaminophen TAB* 325 MG PO PRN (23:02)
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
[2019-06-27] MEDS: traMADol TAB* 50 MG PO PRN ×4 (02:22→23:09)
[2019-06-27] MEDS: Levothyroxine TAB* 100 MCG TAB PO SCH (05:21)
[2019-06-27] MEDS: Insulin LISPRO* 1 UNITS UNIT SUBCUT SCH ×3 (08:25→17:42)
[2019-06-27] MEDS: Gabapentin CAP(*) 100 MG PO SCH ×3 (08:26→23:10)
[2019-06-27] MEDS: Folic Acid TAB* 1 MG PO SCH (08:26)
[2019-06-27] MEDS: amLODIPine TAB* 5 MG PO SCH (08:26)
[2019-06-27] MEDS: Cetirizine* 10 MG TAB PO SCH (08:26)
[2019-06-27] MEDS: Sertraline* 25 MG TAB PO SCH (08:26)
[2019-06-27] MEDS: Pantoprazole TAB * 40 MG TAB PO SCH (08:26)
[2019-06-27] MEDS: Aspirin EC TAB* 81 MG TAB.EC PO SCH (08:26)
[2019-06-27] MEDS: Metoprolol Succinate XL TAB* 50 MG PO SCH (08:26)
[2019-06-27] MEDS: Fluticasone NASAL SPRAY 50MCG* 16 gm SPRAY BTL BOTH NARES SCH (08:32)
[2019-06-27] MEDS ORDERED: Torsemide TAB* 20 MG PO SCH (09:00)
[2019-06-27] MEDS ORDERED: Ferrous Sulfate TAB* 325 MG PO SCH (09:00)
[2019-06-27] MEDS ORDERED: Ondansetron ODT TAB* 4 MG PO ONE (14:43)
[2019-06-27] MEDS ORDERED: Ondansetron ODT TAB* 4 MG ONE (14:48)
[2019-06-27] MEDS: Iron Sucrose* 200 MG in NS 0.9% 100 ML* 100 ML IVPB SCH (14:51)
--- NOTE | 2019-06-27 15:01 | PN ---
Subjective Date of Service: 06/27/19 Interval History: Sitting in bed drinking tea. Reports she feels well today. Reports mild hip pain that is controlled with current PO pain medications regime. Reports no pain at catheter site. Denies cp, sob, nausea, vomiting, diarrhea, fever, chills. Objective Active Medications: Acetaminophen (Tylenol Tab*) 975 mg PO Q8HR PRN PRN Reason: PAIN - MILD Last Admin: 06/26/19 23:02 Dose: 975 mg Amlodipine Besylate (Norvasc Tab*) [facility] [place] Last Admin: 06/27/19 08:26 Dose: 10 mg Aspirin (Aspirin Ec Tab*) 81 mg PO QAM [facility] Last Admin: 06/27/19 08:26 Dose: 81 mg Bisacodyl (Dulcolax Supp*) 10 mg [place] DAILY PRN PRN Reason: CONSTIPATION Cetirizine HCl (Zyrtec*) 10 mg PO DAILY [facility] Last Admin: 06/27/19 08:26 Dose: 10 mg Dextrose (D50w Syringe 50 Ml*) 12.5 gm IV PUSH .FOR FS < 60 - SS PRN PRN Reason: FS < 60 Ferrous Sulfate (Ferrous Sulfate Tab*) 325 mg PO DAILY [facility] Last Admin: 06/27/19 08:26 Dose: 325 mg Fluticasone Propionate (Flonase Nasal [place] 50mcg*) 1 spray BOTH NARES [facility] [place] Last Admin: 06/27/19 08:32 Dose: 1 spray Folic Acid (Folvite Tab*) 1 mg PO DAILY [facility] Last Admin: 06/27/19 08:26 Dose: 1 mg Gabapentin (Neurontin Cap(*)) 100 mg PO TID [facility] Last Admin: 06/27/19 14:50 Dose: 100 mg Hydralazine HCl (Apresoline Iv*) 5 mg IV SLOW PU Q6H PRN PRN Reason: BLOOD PRESSURE Iron Sucrose 200 mg/ Sodium (Chloride) 110 mls @ 440 mls/hr IVPB MoWeFr@1300 [facility] Stop: 07/06/19 13:14 Last Admin: 06/27/19 14:51 Dose: 440 mls/hr Insulin Glargine (Lantus(*)) 5 units SUBCUT BEDTIME [facility] Last Admin: 06/26/19 20:12 Dose: 5 units Insulin Human Lispro (Humalog*) 0 units SUBCUT [facility]; Protocol Last Admin: 06/27/19 13:00 Dose: 3 units Levothyroxine Sodium (Synthroid Tab*) 200 mcg PO 0600 [facility] Last Admin: 06/27/19 05:21 Dose: 200 mcg Lidocaine (Lidoderm 5% Patch*) 1 patch TRANSDERM Q24H PRN PRN Reason: PAIN - MILD Last Admin: 06/26/19 23:00 Dose: 1 patch Magnesium Hydroxide (Milk Of Magnephraim Liq*) 30 ml PO BID PRN PRN Reason: CONSTIPATION Melatonin (Melatonin) 3 mg PO BEDTIME PRN PRN Reason: INSOMNIA Metoprolol Succinate (Toprol Xl Tab*) 50 mg PO DAILY [facility] Last Admin: 06/27/19 08:26 Dose: 50 mg Pantoprazole Sodium (Protonix Tab*) 40 mg PO QAM [facility] Last Admin: 06/27/19 08:26 Dose: 40 mg Polyethylene Glycol/Electrolytes (Miralax (17 Gm Dose John)) 17 gm PO DAILY PRN PRN Reason: CONSTIPATION Quetiapine Fumarate (Seroquel Tab*) 25 mg PO BEDTIME [facility] Last Admin: 06/26/19 20:12 Dose: 25 mg Senna (Senokot 8.6 Mg Tab*) 2 tab PO BEDTIME PRN PRN Reason: if no BM during day Sertraline HCl (Zoloft*) 75 mg PO QAM [facility] Last Admin: 06/27/19 08:26 Dose: 75 mg Tramadol HCl (Ultram*) 50 mg PO Q6HR PRN PRN Reason: PAIN - MODERATE Last Admin: 06/27/19 14:00 Dose: 50 mg Vital Signs - 8 hr 06/27/19 06/27/19 06/27/19 07:15 08:00 08:26 Temperature 97.3 F Pulse Rate 90 Respiratory 16 16 16 Rate Blood Pressure 143/78 (mmHg) O2 Sat by Pulse 91 Oximetry 06/27/19 06/27/19 06/27/19 08:32 11:15 11:59 Temperature 98.4 F Pulse Rate 97 Respiratory 16 16 18 Rate Blood Pressure 162/89 (mmHg) O2 Sat by Pulse 95 Oximetry 06/27/19 06/27/19 14:00 14:50 Temperature Pulse Rate Respiratory 18 20 Rate Blood Pressure (mmHg) O2 Sat by Pulse Oximetry Oxygen Devices in Use Now: None Appearance: Comfortable, NAD Eyes: No Scleral Icterus Ears/Nose/Mouth/Throat: Clear Oropharnyx, Mucous Membranes Moist Neck: NL Appearance and Movements; NL JVP Respiratory: Symmetrical Chest Expansion and Respiratory Effort, Clear to Auscultation Cardiovascular: NL Sounds; No Murmurs; No JVD, RRR, - - trace bilateral le edema Abdominal: NL Sounds; No Tenderness; No Distention Lymphatic: No Cervical Adenopathy Skin: No Rash or Ulcers Neurological: Alert and Oriented x 3 Nutrition: Taking PO's Result Diagrams: 06/26/19 18:25 06/26/19 18:25 Additional Lab and Data: Laboratory Results - last 24 hr 06/26/19 06/26/19 06/26/19 16:42 18:25 18:25 WBC 9.4 RBC 3.68 L Hgb 10.5 L Hct 32 L MCV 86 MCH 29 MCHC 33 RDW 15 Plt Count 324 MPV 7.1 L Neut % (Auto) 81.5 Lymph % (Auto) 10.5 [place] % (Auto) 3.9 Eos % (Auto) 3.5 Baso % (Auto) 0.6 Absolute Neuts (auto) 7.6 Absolute Lymphs (auto) 1.0 Absolute Monos (auto) 0.4 Absolute Eos (auto) 0.3 Absolute Basos (auto) 0.1 Absolute Nucleated RBC 0.0 Nucleated RBC % 0.1 Sodium 140 Potassium 4.5 Chloride 107 Carbon Dioxide 21 L Anion Gap 12 H BUN 68 H Creatinine 4.35 H Est GFR ( Amer) 12.0 Est GFR (Non-Af Amer) 9.9 BUN/Creatinine Ratio 15.6 Glucose 140 H POC Glucose (mg/dL) 154 H Calcium 8.8 06/26/19 06/27/19 06/27/19 19:38 08:03 12:20 WBC RBC Hgb Hct MCV MCH MCHC RDW Plt Count MPV Neut % (Auto) Lymph % (Auto) [place] % (Auto) Eos % (Auto) Baso % (Auto) Absolute Neuts (auto) Absolute Lymphs (auto) Absolute Monos (auto) Absolute Eos (auto) Absolute Basos (auto) Absolute Nucleated RBC Nucleated RBC % Sodium Potassium Chloride Carbon Dioxide Anion Gap BUN Creatinine Est GFR ( Amer) Est GFR (Non-Af Amer) BUN/Creatinine Ratio Glucose POC Glucose (mg/dL) 174 H 144 H 155 H Calcium Microbiology and Other Data: Microbiology 06/26/19 17:00 Nasal Screen MRSA (PCR) - Final Nasal Mrsa Detected Assess/Plan/Problems-Billing Assessment: 73 yr old pmh of dm, esrd, pe, htn, traumatic subdural hematoma, breast ca, depression; who presented for new dialysis catheter placement - Patient Problems (1) ESRD (end stage renal disease) Comment: - Catheter placed 06/26/19 - Dialysis today - Nephrology following - Repeat labs tomorrow (2) Right hip pain Comment: - S/P right hip ORIF 06/01/19 - Cont po pain medications, pt, ot (3) HTN (hypertension) Comment: - Continue home atenolol and amlodipine (4) Depression Comment: - Cont Zoloft (5) Diabetes mellitus, type 2 Comment: - Cont insulin glargine 5 units daily and ss (6) DVT prophylaxis Comment: - SCDs only given recent surgery - Consult nephrology on when we can resume chemical proph Status and Disposition: Inpatient
--- NOTE | 2019-06-27 15:10 | PN ---
Progress Note - Progress Note Date of Service: 06/27/19 Note: chief complaint: End-stage kidney disease requiring initiation of dialysis History of present illness: Patient is a very nice 73-year-old woman whom I know from my outpatient nephrology clinic, Who has advanced chronic kidney disease most probably on the basis of diabetes and high blood pressure. Her blood pressure has been very difficult to control. Kidney function continued to deteriorate. She was recently admitted for hip fracture and she underwent ORIF. Subsequently she was transferred for inpatient rehabilitation at [facility]. While there she developed difficult to manage hyperkalemia and volume overload. She was also noted to have a mild uremic symptoms with tiredness and flapping tremor. She agreed to start hemodialysis and came in yesterday for Perm catheter placement. Today her first dialysis day. I saw Kat during dialysis today which she has tolerated pretty well. she is looking forward to feeling better. Review of systems: Constitutional: Tired, decreased strength, no fevers or chills Cardiovascular: No chest pain or shortness of breath and no palpitations Respiratory: No cough no sputum production and no wheezing physical exam Temp Pulse Resp BP SpO2 FiO2 98.4 F 97 20 162/89 95 06/27/19 11:15 06/27/19 11:15 06/27/19 14:50 06/27/19 11:15 06/27/19 11:15 constitutional: Elderly woman lying in bed in no acute distress but looking chronically ill Cardiovascular: No murmurs, rubs or gallops. S1-S2 normal. Regular rate and rhythm. +1-+2 lower extremities edema Respiratory: Clear to auscultation bilaterally. abdomen: Soft, nontender and nondistended. Psychiatric: Alert and oriented 3. Active medications: Acetaminophen (Tylenol Tab*) 975 mg PO Q8HR PRN PRN Reason: PAIN - MILD Last Admin: 06/26/19 23:02 Dose: 975 mg Amlodipine Besylate (Norvasc Tab*) 10 mg PO [facility] Last Admin: 06/27/19 08:26 Dose: 10 mg Aspirin (Aspirin Ec Tab*) 81 mg PO [facility] Last Admin: 06/27/19 08:26 Dose: 81 mg Bisacodyl (Dulcolax Supp*) 10 mg [place] DAILY PRN PRN Reason: CONSTIPATION Cetirizine HCl (Zyrtec*) 10 mg PO DAILY [facility] Last Admin: 06/27/19 08:26 Dose: 10 mg Dextrose (D50w Syringe 50 Ml*) 12.5 gm IV PUSH .FOR FS < 60 - SS PRN PRN Reason: FS < 60 Ferrous Sulfate (Ferrous Sulfate Tab*) 325 mg PO DAILY [facility] Last Admin: 06/27/19 08:26 Dose: 325 mg Fluticasone Propionate (Flonase Nasal [place] 50mcg*) 1 spray BOTH NARES QAM [facility] Last Admin: 06/27/19 08:32 Dose: 1 spray Folic Acid (Folvite Tab*) 1 mg PO DAILY [facility] Last Admin: 06/27/19 08:26 Dose: 1 mg Gabapentin (Neurontin Cap(*)) 100 mg PO TID [facility] Last Admin: 06/27/19 14:50 Dose: 100 mg Hydralazine HCl (Apresoline Iv*) 5 mg IV SLOW PU Q6H PRN PRN Reason: BLOOD PRESSURE Iron Sucrose 200 mg/ Sodium (Chloride) 110 mls @ 440 mls/hr IVPB MoWeFr@1300 [facility] Stop: 07/06/19 13:14 Last Admin: 06/27/19 14:51 Dose: 440 mls/hr Insulin Glargine (Lantus(*)) 5 units SUBCUT BEDTIME [facility] Last Admin: 06/26/19 20:12 Dose: 5 units Insulin Human Lispro (Humalog*) 0 units SUBCUT AC [facility]; Protocol Last Admin: 06/27/19 13:00 Dose: 3 units Levothyroxine Sodium (Synthroid Tab*) 200 mcg PO 0600 [facility] Last Admin: 06/27/19 05:21 Dose: 200 mcg Lidocaine (Lidoderm 5% Patch*) 1 patch TRANSDERM Q24H PRN PRN Reason: PAIN - MILD Last Admin: 06/26/19 23:00 Dose: 1 patch Magnesium Hydroxide (Milk Of Magnesia Liq*) 30 ml PO BID PRN PRN Reason: CONSTIPATION Melatonin (Melatonin) 3 mg PO BEDTIME PRN PRN Reason: INSOMNIA Metoprolol Succinate (Toprol Xl Tab*) 50 mg PO DAILY [facility] Last Admin: 06/27/19 08:26 Dose: 50 mg Pantoprazole Sodium (Protonix Tab*) 40 mg PO QAM [facility] Last Admin: 02/05/20 08:26 Dose: 40 mg Polyethylene Glycol/Electrolytes (Miralax (17 Gm Dose John)) 17 gm PO DAILY PRN PRN Reason: CONSTIPATION Quetiapine Fumarate (Seroquel Tab*) 25 mg PO BEDTIME [facility] Last Admin: 06/26/19 20:12 Dose: 25 mg Senna (Senokot 8.6 Mg Tab*) 2 tab PO BEDTIME PRN PRN Reason: if no BM during day Sertraline HCl (Zoloft*) 75 mg PO QAM [facility] Last Admin: 06/27/19 08:26 Dose: 75 mg Tramadol HCl (Ultram*) 50 mg PO Q6HR PRN PRN Reason: PAIN - MODERATE Last Admin: 06/27/19 14:00 Dose: 50 mg Laboratory Results - last 24 hr 06/26/19 06/26/19 06/26/19 16:42 18:25 18:25 WBC 9.4 RBC 3.68 L Hgb 10.5 L Hct 32 L MCV 86 MCH 29 MCHC 33 RDW 15 Plt Count 324 MPV 7.1 L Neut % (Auto) 81.5 Lymph % (Auto) 10.5 [place] % (Auto) 3.9 Eos % (Auto) 3.5 Baso % (Auto) 0.6 Absolute Neuts (auto) 7.6 Absolute Lymphs (auto) 1.0 Absolute Monos (auto) 0.4 Absolute Eos (auto) 0.3 Absolute Basos (auto) 0.1 Absolute Nucleated RBC 0.0 Nucleated RBC % 0.1 Sodium 140 Potassium 4.5 Chloride 107 Carbon Dioxide 21 L Anion Gap 12 H BUN 68 H Creatinine 4.35 H Est GFR ( Amer) 12.0 Est GFR (Non-Af Amer) 9.9 BUN/Creatinine Ratio 15.6 Glucose 140 H POC Glucose (mg/dL) 154 H Calcium 8.8 06/26/19 06/27/19 06/27/19 19:38 08:03 12:20 WBC RBC Hgb Hct MCV MCH MCHC RDW Plt Count MPV Neut % (Auto) Lymph % (Auto) [place] % (Auto) Eos % (Auto) Baso % (Auto) Absolute Neuts (auto) Absolute Lymphs (auto) Absolute Monos (auto) Absolute Eos (auto) Absolute Basos (auto) Absolute Nucleated RBC Nucleated RBC % Sodium Potassium Chloride Carbon Dioxide Anion Gap BUN Creatinine Est GFR ( Amer) Est GFR (Non-Af Amer) BUN/Creatinine Ratio Glucose POC Glucose (mg/dL) 174 H 144 H 155 H Calcium assessment and plan: 1. End-stage kidney disease secondary to type 2 diabetes mellitus and hypertension. - initiating dialysis treatment today for Acid base, electrolyte and volume control In addition with need for uremic symptoms, Dialysis is started slowly to avoid dialysis disequilibrium syndrome. 2 hours of dialysis today. Protocol for initiation of dialysis is 3 treatments in a row with increasing time and blood flow rate during dialysis. 2. hyperkalemia. Previously she was on Kayexalate 3 times a week. We can start Kayexalate here as we are initiating dialysis. 3. volume overload. We will start removing volume with dialysis. At the same time can continue Lasix and she still makes urine 4. anemia of iron deficiency, per outpatient labs. - Can stop by mouth iron - starting Venofer 200 mg IV every other day with dialysis.. First dose today. Next 1 to be given on Tuesday. 5. Anemia of end-stage kidney disease and - No need for dialysis. 6. Disposition: dialysis referral was submitted to [facility] [place]. Social situation is complicated. Please get a Case management and social work consults to help with disposition. will check BMP, phosphorus and PTH tomorrow with dialysis. Thank you, Khloe Ramirez MD
[2019-06-27] MEDS: Acetaminophen TAB* 325 MG PO PRN (17:42)
[2019-06-27] MEDS: QUEtiapine TAB* 25 MG PO SCH (23:08)
[2019-06-27] MEDS: Insulin GLARGINE(*) 1 UNITS UNIT SUBCUT SCH (23:10)
[2019-06-28] MEDS: Levothyroxine TAB* 100 MCG TAB PO SCH (05:22)
[2019-06-28 07:10] LABS: ABS Basophils 0.1 10^3/ul (0-0.2); ABS Eosinophils 0.4 10^3/ul (0-0.6); ABS Lymphocytes 1.7 10^3/ul (1.0-4.8); ABS Monocytes 0.6 10^3/ul (0-0.8); ABS Neutrophils 4.3 10^3/ul (1.5-7.7); Eosinophil % 5.9 %; Hematocrit 24 % (35-47); Lymphocyte % 24.3 %; Mean Corpuscular HGB Conc 34 g/dL (31-36); Mean Corpuscular Hemoglobin 29 pg (27-31); Mean Corpuscular Volume 86 fL (80-97); Mean Platelet Volume 7.4 fL (7.4-10.4); Platelet Count 258 10^3/uL (150-450); Red Blood Count 2.76 10^6 /uL (3.70-4.87); Red Cell Distribution Width 15 % (10-15); White Blood Count 7.1 10^3/uL (3.5-10.8)
[2019-06-28 07:25] LABS: BUN/Creatinine Ratio 12.4 (8-20); Calcium 8.3 mg/dL (8.6-10.3); EGFR African American 15.5 (>60); EGFR Non-African American 12.8 (>60); Magnesium 1.7 mg/dL (1.9-2.7); Potassium 4.1 mmol/L (3.5-5.0)
[2019-06-28 07:53] LABS: Hepatitis B Surface Antigen Nonreactive (Nonreactive)
[2019-06-28 08:11] LABS: Hepatitis C Antibody Negative (Negative)
[2019-06-28] MEDS ORDERED: Magnesium Sulfate 2 GM IV* 2 GM/50 ML BAG IVPB ONE (08:16)
[2019-06-28] MEDS: traMADol TAB* 50 MG PO PRN ×2 (09:05→15:27)
[2019-06-28] MEDS: Insulin LISPRO* 1 UNITS UNIT SUBCUT SCH ×3 (09:07→17:56)
[2019-06-28] MEDS: Acetaminophen TAB* 325 MG PO PRN ×3 (10:25→23:04)
[2019-06-28] MEDS: Lidocaine PATCH 5%* 1 PATCH TRANSDERM PRN (10:25)
--- NOTE | 2019-06-28 10:29 | PN ---
Subjective Date of Service: 06/28/19 Interval History: Per nursing notes patient's o2 saturation decreased last evening into the 80s, therefore, supplemental O2 placed at 2L and saturation increased. Today patient denies shortness of breath, cough, chest pain, weakness. Discussed with RN today to wean o2 and also obtain weights. Patient working with pt on assessment. Up to chair without difficulty ( shortness of breath or weakness). She reports she feels well today. Reports pain in right hip is tolerable. Denies pain at dialysis catheter site. Objective Active Medications: Acetaminophen (Tylenol Tab*) 975 mg PO Q8HR PRN PRN Reason: PAIN - MILD Last Admin: 06/27/19 17:42 Dose: 975 mg Amlodipine Besylate (Norvasc Tab*) 10 mg PO QAM [facility] Last Admin: 06/27/19 08:26 Dose: 10 mg Aspirin (Aspirin Ec Tab*) 81 mg PO QAM [facility] Last Admin: 06/27/19 08:26 Dose: 81 mg Bisacodyl (Dulcolax Supp*) 10 mg [place] DAILY PRN PRN Reason: CONSTIPATION Cetirizine HCl (Zyrtec*) 10 mg PO DAILY [facility] Last Admin: 06/27/19 08:26 Dose: 10 mg Dextrose (D50w Syringe 50 Ml*) 12.5 gm IV PUSH .FOR FS < 60 - SS PRN PRN Reason: FS < 60 Fluticasone Propionate (Flonase Nasal [place] 50mcg*) 1 spray BOTH NARES QAM [facility] Last Admin: 06/27/19 08:32 Dose: 1 spray Folic Acid (Folvite Tab*) 1 mg PO DAILY [facility] Last Admin: 06/27/19 08:26 Dose: 1 mg Gabapentin (Neurontin Cap(*)) 100 mg PO TID [facility] Last Admin: 06/27/19 23:10 Dose: 100 mg Hydralazine HCl (Apresoline Iv*) 5 mg IV SLOW PU Q6H PRN PRN Reason: BLOOD PRESSURE Iron Sucrose 200 mg/ Sodium (Chloride) 110 mls @ 440 mls/hr IVPB MoWeFr@1300 [facility] Stop: 07/06/19 13:14 Last Admin: 06/27/19 14:51 Dose: 440 mls/hr Insulin Glargine (Lantus(*)) 5 units SUBCUT BEDTIME [facility] Last Admin: 06/27/19 23:10 Dose: 5 units Insulin Human Lispro (Humalog*) 0 units SUBCUT AC [facility]; Protocol Last Admin: 06/28/19 09:07 Dose: 3 units Levothyroxine Sodium (Synthroid Tab*) 200 mcg PO 0600 [facility] Last Admin: 06/28/19 05:22 Dose: 200 mcg Lidocaine (Lidoderm 5% Patch*) 1 patch TRANSDERM Q24H PRN PRN Reason: PAIN - MILD Last Admin: 06/26/19 23:00 Dose: 1 patch Magnesium Hydroxide (Milk Of Magnephraim Liq*) 30 ml PO BID PRN PRN Reason: CONSTIPATION Melatonin (Melatonin) 3 mg PO BEDTIME PRN PRN Reason: INSOMNIA Metoprolol Succinate (Toprol Xl Tab*) 50 mg PO DAILY [facility] Last Admin: 06/27/19 08:26 Dose: 50 mg Pantoprazole Sodium (Protonix Tab*) 40 mg PO QAM [facility] Last Admin: 06/27/19 08:26 Dose: 40 mg Polyethylene Glycol/Electrolytes (Miralax (17 Gm Dose John)) 17 gm PO DAILY PRN PRN Reason: CONSTIPATION Quetiapine Fumarate (Seroquel Tab*) 25 mg PO BEDTIME [facility] Last Admin: 06/27/19 23:08 Dose: 25 mg Senna (Senokot 8.6 Mg Tab*) 2 tab PO BEDTIME PRN PRN Reason: if no BM during day Sertraline HCl (Zoloft*) 75 mg PO QAM [facility] Last Admin: 06/27/19 08:26 Dose: 75 mg Tramadol HCl (Ultram*) 50 mg PO Q6HR PRN PRN Reason: PAIN - MODERATE Last Admin: 06/28/19 09:05 Dose: 50 mg Vital Signs - 8 hr 06/28/19 09:05 Respiratory 15 Rate Oxygen Devices in Use Now: Nasal Cannula Appearance: Comfortable, NAD, No dyspnea Eyes: No Scleral Icterus Ears/Nose/Mouth/Throat: Mucous Membranes Moist Neck: NL Appearance and Movements; NL JVP Respiratory: Symmetrical Chest Expansion and Respiratory Effort, Clear to Auscultation Cardiovascular: NL Sounds; No Murmurs; No JVD, RRR, - - Bilateral trace to +1 edema Abdominal: NL Sounds; No Tenderness; No Distention Lymphatic: No Cervical Adenopathy Extremities: No Clubbing, Cyanosis Skin: No Rash or Ulcers Neurological: Alert and Oriented x 3 Nutrition: Taking PO's Result Diagrams: 06/28/19 06:38 06/28/19 06:38 Additional Lab and Data: Laboratory Results - last 24 hr 06/27/19 06/27/19 06/27/19 12:20 16:42 22:13 WBC RBC Hgb Hct MCV MCH MCHC RDW Plt Count MPV Neut % (Auto) Lymph % (Auto) [place] % (Auto) Eos % (Auto) Baso % (Auto) Absolute Neuts (auto) Absolute Lymphs (auto) Absolute Monos (auto) Absolute Eos (auto) Absolute Basos (auto) Absolute Nucleated RBC Nucleated RBC % Sodium Potassium Chloride Carbon Dioxide Anion Gap BUN Creatinine Est GFR ( Amer) Est GFR (Non-Af Amer) BUN/Creatinine Ratio Glucose POC Glucose (mg/dL) 155 H 225 H 189 H Calcium Magnesium Hepatitis A IgM Ab Hep Bs Antigen Hep B Core IgM Ab Hepatitis C Antibody Hepatitis C Ab Index 06/28/19 06/28/19 06/28/19 06:38 06:38 06:38 WBC 7.1 RBC 2.76 L Hgb 8.0 L Hct 24 L MCV 86 MCH 29 MCHC 34 RDW 15 Plt Count 258 MPV 7.4 Neut % (Auto) 61.0 Lymph % (Auto) 24.3 [place] % (Auto) 7.8 Eos % (Auto) 5.9 Baso % (Auto) 1.0 Absolute Neuts (auto) 4.3 Absolute Lymphs (auto) 1.7 Absolute Monos (auto) 0.6 Absolute Eos (auto) 0.4 Absolute Basos (auto) 0.1 Absolute Nucleated RBC 0.0 Nucleated RBC % 0.0 Sodium 141 Potassium 4.1 Chloride 107 Carbon Dioxide 26 Anion Gap 8 BUN 43 H Creatinine 3.48 H Est GFR ( Amer) 15.5 Est GFR (Non-Af Amer) 12.8 BUN/Creatinine Ratio 12.4 Glucose 148 H POC Glucose (mg/dL) Calcium 8.3 L Magnesium 1.7 L Hepatitis A IgM Ab Negative Hep Bs Antigen Nonreactive Hep B Core IgM Ab Nonreactive Hepatitis C Antibody Negative Hepatitis C Ab Index 0.02 06/28/19 08:18 WBC RBC Hgb Hct MCV MCH MCHC RDW Plt Count MPV Neut % (Auto) Lymph % (Auto) [place] % (Auto) Eos % (Auto) Baso % (Auto) Absolute Neuts (auto) Absolute Lymphs (auto) Absolute Monos (auto) Absolute Eos (auto) Absolute Basos (auto) Absolute Nucleated RBC Nucleated RBC % Sodium Potassium Chloride Carbon Dioxide Anion Gap BUN Creatinine Est GFR ( Amer) Est GFR (Non-Af Amer) BUN/Creatinine Ratio Glucose POC Glucose (mg/dL) 153 H Calcium Magnesium Hepatitis A IgM Ab Hep Bs Antigen Hep B Core IgM Ab Hepatitis C Antibody Hepatitis C Ab Index Microbiology and Other Data: Microbiology 06/26/19 17:00 Nasal Screen MRSA (PCR) - Final Nasal Mrsa Detected Assess/Plan/Problems-Billing Assessment: 73 yr old pmh of dm, esrd, pe, htn, traumatic subdural hematoma, breast ca, depression; who presented for new dialysis catheter placement - Patient Problems (1) Anemia Comment: - Discussed with resume specialist, patient receiving IV iron with dialysis. - Repeat CBC tomorrow (2) Hypoxia Comment: - Nursing notes report desat to 88 on room air overnight therefore o2 place at 2l and o2 saturation increased. - Currently 99% on 2l per nursing, order given to wean - Lungs clear. - If hypoxia continues consider chest xray - Ordered overnight O2 monitoring (3) ESRD (end stage renal disease) Comment: - Plan for dialysis today. - Catheter placed 06/26/19 - Nephrology following (4) Right hip pain Comment: - Continues to have right hip pain, but reports it is tolerable. - S/P right hip ORIF 06/01/19 - Cont po pain medications, pt, ot (5) HTN (hypertension) Comment: - Slightly above goal - Continue to monitor - Continue home atenolol and amlodipine (6) Depression Comment: - Cont Zoloft (7) Diabetes mellitus, type 2 Comment: - Cont insulin glargine 5 units daily and ss (8) DVT prophylaxis Comment: - Discussed with [employer]. Lovenox SQ initiated Status and Disposition: Inpatient
[2019-06-28] MEDS: Gabapentin CAP(*) 100 MG PO SCH ×3 (10:48→19:33)
[2019-06-28] MEDS: Enoxaparin(*) 30 MG/0.3 ML SYR SUBCUT SCH (13:36)
[2019-06-28] MEDS: Fluticasone NASAL SPRAY 50MCG* 16 gm SPRAY BTL BOTH NARES SCH (13:38)
[2019-06-28] MEDS: amLODIPine TAB* 5 MG PO SCH (13:38)
[2019-06-28] MEDS: Folic Acid TAB* 1 MG PO SCH (13:38)
[2019-06-28] MEDS: Pantoprazole TAB * 40 MG TAB PO SCH (13:39)
[2019-06-28] MEDS: Sertraline* 25 MG TAB PO SCH (13:39)
[2019-06-28] MEDS: Aspirin EC TAB* 81 MG TAB.EC PO SCH (13:39)
[2019-06-28] MEDS: Metoprolol Succinate XL TAB* 50 MG PO SCH (13:39)
[2019-06-28] MEDS: Cetirizine* 10 MG TAB PO SCH (13:39)
--- NOTE | 2019-06-28 17:04 | PN ---
Progress Note - Progress Note Date of Service: 06/28/19 Note: Chief complaint: End-stage kidney disease on hemodialysis, new start. History of present illness. Kat is a very nice 73-year-old woman with end- stage kidney disease secondary to diabetes mellitus type 2 and hypertension. Today she had her second dialysis treatment. She initiated dialysis because of difficulties with control of potassium, volume, and uremic symptoms. She states that she feels better today. Her legs are not as swollen and she was able to walk for the first time since her ORIF. She is upbeat and hopeful that dialysis will make her feel better and allow her to in quality time with her boyfriend with whom she plans to . Unfortunately because of unavailability of dialysis spots at [facility] unit she will have to come to [place], which means that she will have to move to a penitentiary here. Her significant other will probably stay back in [place]. She is on a waiting list at [place] dialysis unit. Hopefully they will have an opening pretty soon so she can go back to her present penitentiary and be with her significant other. Unfortunately I do not think he will be able to move with her in [place]. She states that yesterday after dialysis she was a little bit nauseous but felt much better after she received an anti-nausea medication. I saw Kat during her second dialysis treatment today. I discussed dialysis prescription with her dialysis nurse. Treatment time was 2 hours and a half today. Blood flow rate at 350 mL/min, dialysate flow rate at 500 mL/min, 3K potassium, 2.5 calcium, sodium 140, no heparin. She is allergic to heparin. She states that she broke into a rash when she was exposed to heparin. 1 L fluid removal today. She was very stable at this time of my exam with good blood pressure. Physical exam: Temp Pulse Resp BP SpO2 FiO2 97.4 F 89 22 150/72 97 06/28/19 14:30 06/28/19 14:30 06/28/19 15:27 06/28/19 14:30 06/28/19 14:30 Constitutional: No acute distress Chest: Clear to auscultation Heart: S1-S2 normal, regular rate and rhythm, trace to +1 lower extremities edema. Alert and oriented 3. LABS : Laboratory Results - last 24 hr 06/27/19 06/27/19 06/28/19 16:42 22:13 06:38 WBC 7.1 RBC 2.76 L Hgb 8.0 L Hct 24 L MCV 86 MCH 29 MCHC 34 RDW 15 Plt Count 258 MPV 7.4 Neut % (Auto) 61.0 Lymph % (Auto) 24.3 [place] % (Auto) 7.8 Eos % (Auto) 5.9 Baso % (Auto) 1.0 Absolute Neuts (auto) 4.3 Absolute Lymphs (auto) 1.7 Absolute Monos (auto) 0.6 Absolute Eos (auto) 0.4 Absolute Basos (auto) 0.1 Absolute Nucleated RBC 0.0 Nucleated RBC % 0.0 Sodium Potassium Chloride Carbon Dioxide Anion Gap BUN Creatinine Est GFR ( Amer) Est GFR (Non-Af Amer) BUN/Creatinine Ratio Glucose POC Glucose (mg/dL) 225 H 189 H Calcium Phosphorus Magnesium PTH Intact Calcium (PTH Intact) Hepatitis A IgM Ab Hep Bs Antigen Hep B Core IgM Ab Hepatitis C Antibody Hepatitis C Ab Index 06/28/19 06/28/19 06/28/19 06:38 06:38 08:18 WBC RBC Hgb Hct MCV MCH MCHC RDW Plt Count MPV Neut % (Auto) Lymph % (Auto) [place] % (Auto) Eos % (Auto) Baso % (Auto) Absolute Neuts (auto) Absolute Lymphs (auto) Absolute Monos (auto) Absolute Eos (auto) Absolute Basos (auto) Absolute Nucleated RBC Nucleated RBC % Sodium 141 Potassium 4.1 Chloride 107 Carbon Dioxide 26 Anion Gap 8 BUN 43 H Creatinine 3.48 H Est GFR ( Amer) 15.5 Est GFR (Non-Af Amer) 12.8 BUN/Creatinine Ratio 12.4 Glucose 148 H POC Glucose (mg/dL) 153 H Calcium 8.3 L Phosphorus Magnesium 1.7 L PTH Intact Calcium (PTH Intact) Hepatitis A IgM Ab Negative Hep Bs Antigen Nonreactive Hep B Core IgM Ab Nonreactive Hepatitis C Antibody Negative Hepatitis C Ab Index 0.02 06/28/19 06/28/19 06/28/19 11:15 11:15 12:56 WBC RBC Hgb Hct MCV MCH MCHC RDW Plt Count MPV Neut % (Auto) Lymph % (Auto) [place] % (Auto) Eos % (Auto) Baso % (Auto) Absolute Neuts (auto) Absolute Lymphs (auto) Absolute Monos (auto) Absolute Eos (auto) Absolute Basos (auto) Absolute Nucleated RBC Nucleated RBC % Sodium Potassium Chloride Carbon Dioxide Anion Gap BUN Creatinine Est GFR ( Amer) Est GFR (Non-Af Amer) BUN/Creatinine Ratio Glucose POC Glucose (mg/dL) 172 H Calcium Phosphorus 2.2 L Magnesium PTH Intact 241.4 H Calcium (PTH Intact) 8.2 L Hepatitis A IgM Ab Hep Bs Antigen Hep B Core IgM Ab Hepatitis C Antibody Hepatitis C Ab Index Acetaminophen (Tylenol Tab*) 975 mg PO Q8HR PRN PRN Reason: PAIN - MILD Last Admin: 06/28/19 10:25 Dose: 975 mg Amlodipine Besylate (Norvasc Tab*) 10 mg PO [facility] Last Admin: 06/28/19 13:38 Dose: 10 mg Aspirin (Aspirin Ec Tab*) 81 mg PO [facility] Last Admin: 06/28/19 13:39 Dose: 81 mg Bisacodyl (Dulcolax Supp*) 10 mg MT DAILY PRN PRN Reason: CONSTIPATION Cetirizine HCl (Zyrtec*) 10 mg PO DAILY [facility] Last Admin: 06/28/19 13:39 Dose: 10 mg Dextrose (D50w Syringe 50 Ml*) 12.5 gm IV PUSH .FOR FS < 60 - SS PRN PRN Reason: FS < 60 Enoxaparin Sodium (Lovenox(*)) 30 mg SUBCUT Q24H [facility] Last Admin: 06/28/19 13:36 Dose: 30 mg Fluticasone Propionate (Flonase Nasal [place] 50mcg*) 1 spray BOTH NARES [facility] Last Admin: 06/28/19 13:38 Dose: 1 spray Folic Acid (Folvite Tab*) 1 mg PO DAILY [facility] Last Admin: 06/28/19 13:38 Dose: 1 mg Gabapentin (Neurontin Cap(*)) 100 mg PO TID [facility] Last Admin: 06/28/19 13:39 Dose: 100 mg Hydralazine HCl (Apresoline Iv*) 5 mg IV SLOW PU Q6H PRN PRN Reason: BLOOD PRESSURE Iron Sucrose 200 mg/ Sodium (Chloride) 110 mls @ 440 mls/hr IVPB [id number] [facility] Stop: 07/06/19 13:14 Last Admin: 06/27/19 14:51 Dose: 440 mls/hr Insulin Glargine (Lantus(*)) 5 units SUBCUT BEDTIME [facility] Last Admin: 06/27/19 23:10 Dose: 5 units Insulin Human Lispro (Humalog*) 0 units SUBCUT AC [facility]; Protocol Last Admin: 06/28/19 13:35 Dose: 3 units Levothyroxine Sodium (Synthroid Tab*) 200 mcg PO 0600 [facility] Last Admin: 06/28/19 05:22 Dose: 200 mcg Lidocaine (Lidoderm 5% Patch*) 1 patch TRANSDERM Q24H PRN PRN Reason: PAIN - MILD Last Admin: 06/28/19 10:25 Dose: 1 patch Magnesium Hydroxide (Milk Of Kyle Liq*) 30 ml PO BID PRN PRN Reason: CONSTIPATION Melatonin (Melatonin) 3 mg PO BEDTIME PRN PRN Reason: INSOMNIA Metoprolol Succinate (Toprol Xl Tab*) 50 mg PO DAILY [facility] Last Admin: 06/28/19 13:39 Dose: 50 mg Pantoprazole Sodium (Protonix Tab*) 40 mg PO QAM [facility] Last Admin: 06/28/19 13:39 Dose: 40 mg Polyethylene Glycol/Electrolytes (Miralax (17 Gm Dose John)) 17 gm PO DAILY PRN PRN Reason: CONSTIPATION Quetiapine Fumarate (Seroquel Tab*) 25 mg PO BEDTIME [facility] Last Admin: 06/27/19 23:08 Dose: 25 mg Senna (Senokot 8.6 Mg Tab*) 2 tab PO BEDTIME PRN PRN Reason: if no BM during day Sertraline HCl (Zoloft*) 75 mg PO QAM [facility] Last Admin: 06/28/19 13:39 Dose: 75 mg Tramadol HCl (Ultram*) 50 mg PO Q6HR PRN PRN Reason: PAIN - MODERATE Last Admin: 06/28/19 15:27 Dose: 50 mg Assessment and plan: End-stage renal disease most probably secondary to type 2 diabetes mellitus and hypertension. She received her second dialysis treatment today. She tolerated it well. He had some nausea after her first dialysis treatment yesterday probably very mild dialysis disequilibrium syndrome. She recovered very nicely with antinausea medication. 1. Hypertension - reasonably controlled , no changes for now.May improve with volume removal. 1 L UF today. 2. Diabetes mellitus type 2 - per primary 3. Hypocalcemia hold off on replacement for now 4. Hypophosphatemia - start K phos neutral 1 po bid. recheck Phos tomorrow , along with BMP. 5. Hypomagnesemia- please start magnesium oxide 400 mg by mouth daily. 6. Secondary hyperparathyroidism. Intact PTH on target, no changes 7. Anemia of CKD and iron deficiency. No need for epo at this time as she needs to have her iron repleted first. 8. Iron deficiency. Will continue Venofer 200 mg every other day with dialysis for 5 doses . tomorrow will be #2
[2019-06-28] MEDS ORDERED: oxyCODONE/Acetamin 5/325 MG* TAB PO ONE (18:08)
[2019-06-28] MEDS: QUEtiapine TAB* 25 MG PO SCH (19:33)
[2019-06-28] MEDS: Insulin GLARGINE(*) 1 UNITS UNIT SUBCUT SCH (19:33)
[2019-06-29] MEDS: Ondansetron INJ* 2 MG/ML VIAL IV PRN ×2 (01:57→09:07)
[2019-06-29] MEDS: traMADol TAB* 50 MG PO PRN ×2 (03:09→09:05)
[2019-06-29] MEDS: Levothyroxine TAB* 100 MCG TAB PO SCH (06:15)
[2019-06-29 06:37] LABS: ABS Basophils 0.1 10^3/ul (0-0.2); ABS Eosinophils 0.5 10^3/ul (0-0.6); ABS Lymphocytes 1.4 10^3/ul (1.0-4.8); ABS Monocytes 0.5 10^3/ul (0-0.8); ABS Neutrophils 5.8 10^3/ul (1.5-7.7); Eosinophil % 5.7 %; Hematocrit 24 % (35-47); Hemoglobin 8.1 g/dL (12.0-16.0); Lymphocyte % 16.9 %; Mean Corpuscular HGB Conc 34 g/dL (31-36); Mean Corpuscular Hemoglobin 30 pg (27-31); Mean Corpuscular Volume 86 fL (80-97); Mean Platelet Volume 7.4 fL (7.4-10.4); Nucleated Red Blood Cells % 0.1; Platelet Count 257 10^3/uL (150-450); Red Blood Count 2.75 10^6 /uL (3.70-4.87); Red Cell Distribution Width 16 % (10-15); White Blood Count 8.2 10^3/uL (3.5-10.8)
[2019-06-29 07:12] LABS: BUN/Creatinine Ratio 9.6 (8-20); Calcium 8.2 mg/dL (8.6-10.3); EGFR African American 16.3 (>60); EGFR Non-African American 13.5 (>60); Potassium 4.3 mmol/L (3.5-5.0)
[2019-06-29] MEDS: Metoprolol Succinate XL TAB* 50 MG PO SCH (09:06)
[2019-06-29] MEDS: Gabapentin CAP(*) 100 MG PO SCH ×2 (09:06→14:21)
[2019-06-29] MEDS: Aspirin EC TAB* 81 MG TAB.EC PO SCH (09:06)
[2019-06-29] MEDS: amLODIPine TAB* 5 MG PO SCH (09:06)
[2019-06-29] MEDS: Folic Acid TAB* 1 MG PO SCH (09:07)
[2019-06-29] MEDS: Cetirizine* 10 MG TAB PO SCH (09:07)
[2019-06-29] MEDS: Pantoprazole TAB * 40 MG TAB PO SCH (09:07)
[2019-06-29] MEDS: Sertraline* 25 MG TAB PO SCH (09:07)
[2019-06-29] MEDS: Fluticasone NASAL SPRAY 50MCG* 16 gm SPRAY BTL BOTH NARES SCH (09:07)
[2019-06-29] MEDS: Insulin LISPRO* 1 UNITS UNIT SUBCUT SCH ×2 (09:17→14:23)
[2019-06-29 09:38] VITALS: BP 147/63
[2019-06-29] MEDS ORDERED: HYDROmorphone TAB* 2 MG PO SCH (10:00)
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
--- NOTE | 2019-06-29 13:56 | DS ---
CC: Dr. Zakia Zurita; Dr. Khloe Ramirez * DISCHARGE SUMMARY: DATE OF ADMISSION: 06/26/19 DATE OF DISCHARGE: 06/29/19 PRIMARY CARE PROVIDER: Dr. Zakia Zurita. MY ATTENDING WHILE IN THE HOSPITAL: Dr. Sade Vazquez.* (DICTATED BY KEVIN CEDENO) CONSULTING WASTE DISPOSAL ATTENDANT: Dr. Khloe Ramirez. PRIMARY DISCHARGE DIAGNOSIS: End-stage renal disease, dialysis initiation, tunneled dialysis catheter placement. SECONDARY DISCHARGE DIAGNOSES: 1. Diabetes mellitus type 2. 2. Hypertension. 3. Recent fall with hip fracture and ORIF. 4. History of pulmonary embolism. 5. Breast cancer, status post lumpectomy. 6. Depression. 7. Posttraumatic stress disorder. 8. Gastroesophageal reflux disease. 9. Chronic pain. 10. Hypothyroidism. STUDIES DONE WHILE IN THE HOSPITAL: Chest x-ray from 06/26/19 read as no pneumothorax detected, status post dialysis catheter placement, small pleural effusion suggestive of interstitial pulmonary edema. Electrocardiogram from 06/28/19 shows normal sinus rhythm, rate of 87, QTc of 491. No hypertrophy or enlargement. No ST segment elevation or depression. T -wave inversion in lead aVL. Compared to previous exam, no significant changes since previous record. Pulse oximetry from 06/29/19 showed 2 hours and 52 minutes with oxygen saturation between 80% and 90%. MEDICATIONS AT DISCHARGE: 1. MiraLAX 17 g p.o. daily. 2. Amlodipine 10 mg p.o. daily. 3. Sertraline 75 mg p.o. daily. 4. Fluticasone 1 spray both nares daily. 5. Omeprazole 20 mg p.o. daily. 6. Synthroid 200 mcg p.o. daily. 7. Aspirin 81 mg p.o. daily. 8. Tylenol 1000 mg p.o. q.8 hours as needed. 9. Vitamin D 2000 units p.o. daily. 10. Magnesium hydroxide 30 mL p.o. b.i.d. as needed. 11. Senna 8.6 mg 2 tabs p.o. at bedtime as needed. 12. Quetiapine 25 mg p.o. daily at bedtime. 13. Metoprolol succinate 50 mg p.o. daily. 14. Melatonin/pyridoxine 1 cap p.o. at bedtime as needed. 15. Loratadine 10 mg p.o. daily. 16. Gabapentin 100 mg p.o. t.i.d. 17. Folic acid 1 mg p.o. daily. 18. Ascorbic acid 500 mg p.o. daily. 19. Bisacodyl 10 mg p.r. daily as needed. 20. Robitussin 200 mg p.o. q.4 hours as needed. 21. Insulin glargine 5 units subcutaneous at bedtime. 22. Insulin lispro 1 to 10 units subcutaneous a.c. and h.s. per sliding scale. 23. Lidocaine patch 5% one application topical q.24 hours as needed. 24. Lovenox 30 mg subcutaneous daily, ending on 07/01/19. 25. Dilaudid 2 mg p.o. q.6 hours as needed for pain. Medications discontinued at discharge: 1. Ferrous sulfate 325 mg p.o. daily. 2. Insulin glargine 10 units subcutaneous at bedtime. 3. Kayexalate 30 g p.o. as needed for hyperkalemia. 4. Tramadol 50 mg p.o. q.6 hours as needed. 5. Torsemide 100 mg p.o. daily. New medication: 1. K-Phos Neutral 250 mg p.o. b.i.d. HOSPITAL COURSE: This is a brief summary of the patient's presentation. For more details, please see the history and physical from KEVIN Jiménez, on 06/26/19. In brief, the patient is a 73-year-old female with past medical history significant for the above, who was a direct admission after a dialysis catheter placement by Dr. Kari Robb. The primary directive for the patient 's admission was to establish dialysis and a dialysis chair. The patient had her Kayexalate and torsemide held once she started dialysis, the patient had a negative fluid balance as she had been retaining fluid which was resistant to her torsemide. The patient was noted to have secondary hyperparathyroidism, which was within range per Nephrology. The patient had her oral iron supplementation stopped, and she was given 2 doses of Venofer while in the hospital with dialysis. The patient had significant pain in her hip, which has not been controlled with her tramadol. She was given 1 dose of oxycodone; however, given concern for her end-stage renal disease, the patient was transitioned to Dilaudid with minor improvement in her pain. The patient had her diabetes controlled on insulin glargine and 5 units of sliding scale. The patient was continued on her Lovenox for her hip fracture as DVT prophylaxis. On 06/29/19, the patient had dialysis again and was found a bed at [facility] until she is able to find a dialysis chair at [place], which is closer to her previous abode at the [facility] and the patient was stable and amenable for discharge on 06/29/19. PHYSICAL EXAM ON THE DAY OF DISCHARGE: General: The patient is a 73-year-old female, who appears older than stated age and sitting in the bed, in no acute distress. Vital Signs: Temperature 97.9, pulse rate 90, respiratory rate 16, oxygen saturation 99% on room air, blood pressure 147/63. HEENT: Head normocephalic, atraumatic. Sclerae anicteric. No conjunctival injection. Nasal mucosa moist. Oral mucosa moist. No pharyngeal erythema, discharge, or exudate. Neck: Supple, nontender. No lymphadenopathy. No carotid bruits auscultated. No JVD. Cardiac: Regular rate and rhythm. No clicks, murmurs, gallops, or rubs. Pulses are 2+ in the bilateral dorsalis pedis, posterior tibialis, and radial areas. Respiratory: Clear to auscultation bilaterally. No wheezes, rales, or rhonchi. Good air exchange bilaterally. Abdomen: Soft, nontender, nondistended. Bowel sounds present and normoactive in all 4 quadrants. No hepatosplenomegaly. No abdominal bruits auscultated. No hepatojugular reflux. Genitourinary: No suprapubic or CVA tenderness. Skin: Dialysis catheter in place with scant blood on the dressing. No other rashes or ulcers. Psychiatric: Pleasant and cooperative. DISCHARGE PLAN BY PROBLEM: 1. End-stage renal disease, initiation of hemodialysis. The patient will be continued on dialysis Tuesday, , Tuesday. The patient has dialysis bed currently in [place] and was on a waiting list for a dialysis chair in [place]. The patient has secondary hyperparathyroidism and has been treated with K-Phos Neutral as above for hypophosphatemia. The patient's electrolytes were within normal range otherwise. The patient's electrolytes will be managed outpatient by Nephrology. The patient is tolerating dialysis well without drops in her blood pressure. Continue with fluid removal. 2. Anemia. The patient's anemia is stable. The patient will be started on Venofer. The patient will receive a total of 1 g and then erythropoietin will be started per Nephrology. 3. Diabetes mellitus type 2. Continue the patient's insulin sliding scale and glargine as above. The patient has been well controlled while in the hospital. 4. Chronic pain. Continue the patient's gabapentin and lidocaine patch. Add on new Dilaudid. It is not metabolized through the kidneys. 5. PTSD. Continue the patient's sertraline, Seroquel. 6. History of hip fracture. Continue the patient's Lovenox until 07/01/19. 7. Hypothyroidism. Continue the patient's levothyroxine at current dose of 200 mcg daily. 8. Hypertension. Continue the patient's amlodipine and metoprolol. The patient's blood pressure has been generally well controlled while in the hospital. CONDITION: Stable. DISPOSITION: [facility]. TIME SPENT: Approximately 60 minutes was spent on the discharge of this patient , 30 of which was spent [id number] with the patient obtaining history and physical and discussing treatment plan. KEVIN CEDENO [id number]/HERMAN #: [id number]
[2019-06-29] MEDS: Acetaminophen TAB* 325 MG PO PRN (14:21)
[2019-06-29] MEDS: Enoxaparin(*) 30 MG/0.3 ML SYR SUBCUT SCH (14:23)
[2019-06-29] MEDS: Iron Sucrose* 200 MG in NS 0.9% 100 ML* 100 ML IVPB SCH (14:31)
== END 2019-06-29 16:40 | DRG 673 ==
LOC: CHICATH 12:19 → MED 14:52
PROVIDERS: ADMIT Internal Medicine; ATTEND Internal Medicine
PROC: 05HM33Z Insertion of Infusion Device into Right Internal Jugular Vein, Percutaneous Approach (ICD-10-PCS; 2019-06-26)
PROC: B543ZZA Ultrasonography of Right Jugular Veins, Guidance (ICD-10-PCS; 2019-06-26)
PROC: 5A1D70Z Performance of Urinary Filtration, Intermittent, Less than 6 Hours Per Day (ICD-10-PCS; 2019-06-26)
PROC: 0JH60XZ Insertion of Tunneled Vascular Access Device into Chest Subcutaneous Tissue and Fascia, Open Approach (ICD-10-PCS; principal; 2019-06-26 14:30)
DX: I12.0 Hypertensive chronic kidney disease with stage 5 chronic kidney disease or end stage renal disease (principal); N18.6 End stage renal disease; N25.81 Secondary hyperparathyroidism of renal origin; E11.22 Type 2 diabetes mellitus with diabetic chronic kidney disease; F32.9 Major depressive disorder, single episode, unspecified; F43.10 Post-traumatic stress disorder, unspecified; K21.9 Gastro-esophageal reflux disease without esophagitis; G89.29 Other chronic pain; E03.9 Hypothyroidism, unspecified; M25.551 Pain in right hip; E87.5 Hyperkalemia; D50.9 Iron deficiency anemia, unspecified; D63.1 Anemia in chronic kidney disease; E87.70 Fluid overload, unspecified; R09.02 Hypoxemia; K59.00 Constipation, unspecified; R11.0 Nausea; Z86.711 Personal history of pulmonary embolism; Z85.3 Personal history of malignant neoplasm of breast; Z87.820 Personal history of traumatic brain injury; Z88.8 Allergy status to other drugs, medicaments and biological substances; Z88.5 Allergy status to narcotic agent; Z87.891 Personal history of nicotine dependence; Z79.899 Other long term (current) drug therapy; Z79.82 Long term (current) use of aspirin; Z79.890 Hormone replacement therapy; Z79.4 Long term (current) use of insulin; E83.39 Other disorders of phosphorus metabolism
CPT/HCPCS: 36415; 36558; 71046; 76937; 77001; 80048; 80074; 83735; 83970; 84100; 85025; 85610; 87641; 93005; 94762; 99156; 99157; A9270-GY; C1750; C1769; J0360; J1650; J1756; J2250; J2405; J3010; J3475

== ENCOUNTER → 2019-08-08 11:01 | Day surgery (SDC) | payer MEDICARE ==
[~2019-08-08 11:01] MED LIST changes: -Acetaminophen SUPP* 650 MG SUPP PR ONE; +Clindamycin 600 MG/D5W BAG(*) 600 MG/50 ML BAG IV ONE; +Clindamycin 600 MG/NS BAG(*) 600 MG/50 ML BAG IV ONE; +Heparin 2 UNITS/ML IVPREMIX* 1,000 ML IV ONE; +Heparin(*) 1000 UNIT/ML 10 ML VIAL CATH LAB IV ONE; -Insulin REGULAR(*) 1 UNITS UNIT SUBCUT ONE; +Iodixanol 320 (CONTRAST) 100 ML SDV ONE; +Iohexol 180 (CONTRAST) 10 ML SDV IV ONE; -LORazepam INJ* 2 MG/ML 1 ML VIAL IM ONE; -LORazepam INJ* 2 MG/ML 1 ML VIAL ONE; +Lidocaine 1% INJ* 10 MG/ML 30 ML SDV ONE; +Midazolam* 1 MG/ML 5 ML VIAL (5 MG) ONE; -NS 0.9% 1000 ML* 3,000 ML IV ONE; -NS 0.9% 250 ML* 250 ML ONE; -Propofol* 10 MG/ML 20 ML BTL IV PUSH ONE; -Propofol* 100 ML ONE; -Propofol* 500 MG/50 ML BTL IV SCH; -Succinylcholine* 20 MG/ML 10 ML VIAL IV ONE; -Vancomycin(*) 1,250 MG in NS 0.9% 250 ML* 250 ML IVPB ONE; -fentaNYL PCA* 20 ML PCA ONE; -fentaNYL* 50 MCG/ML 2 ML VIAL (100 MCG VIAL) IV SLOW PU ONE; +fentaNYL* 50 MCG/ML 2 ML VIAL (100 MCG VIAL) ONE
--- NOTE | 2019-08-08 14:51 | OP ---
Operative Report - Blank - Operative Report Date of Operation: 08/08/19 Note: Procedure Note Tunneled HD Catheter placement Note: Performed by Dr. Lorelei Robb, [facility] Nephrology 08/08/2019 Right Internal Jugular Tunneled Hemodialysis Catheter Placement Note: Procedure indication: ESRD on Hemodialysis. Dysfunctional Rt IJ TDC. Consent was obtained from her. She understands risks, benefits, alternatives and wants to proceed. Following strict hand hygiene and standard sterile precautions, a full sterile attire for myself and all personnel involved in the procedure, including a gown , cap, face mask with an eye shield, and double sterile gloves. The procedure started with 2 ID time out after marking the new proposed venotomy site. Patient was put in Trendelenburg position. Rt IJV patency was checked by US. Vascular US was used during the procedure. Right Neck and Chest were prepped with 2% Chlorhexidine, and the surgical field was surrounded by sterile surgical towels. A sterile full body drape was placed to cover the patient from head to toe. Rt IJ was chosen. Under real time US guidance the Rt IJV was accessed by a 21-G needle, then a 0.018 micro wire was threaded through the 21-G needle into the vein and the 21- G needle was pulled out, leaving the micro wire in, confirmed in the IJ-SVC by Fluoro, then a 4-Fr sheath and inner stylet were passed over the micro wire into the vein. Both, the micro wire and the inner stylet were removed and the 4- Fr sheath was kept in place. Then, a 0.035 Amplatz wire was passed through the 4 -Fr sheath into the central circulation, confirmed by Fluoro in the Rt Atrium. Skin near the venotomy was nicked using # 11 Blade and extended to 0.5 cm long, then was dilated using a curved Tali. Bleeding was controlled by pressure over the dilated venotomy site. A 19 cm GlidePath TDC was chosen. The proposed tunnel & exit site were numbed thoroughly with 10 cc of 1% Lidocaine w/o Epi. The exit site was created using # 11 Blade and extended to 0.5 cm long. Exit was dissected bluntly using a curved Tali. A blunt tunneler was bent and used to pull the GlidePath TDC from the exit site to the venotomy site and was placed just behind the 5-Fr sheath Sequential dilatation of the venotomy using 12 then 14 Fr the 16 Fr dilator and peel away sheath after the 5-Fr sheath was removed. Dilator and wire were removed and the 19 cm GlidePath TDC was fed through the peel away sheath that was peel away carefully. Tip of TDC Catheter seen under Fluoro at the Cavo- atrial junction to Rt Atrium Both ports checked for flow and draw and both worked very well then flushed again with saline and locked with 1:1000 in each port. Caps were applied over both ports. The catheter was secured and tethered in place using 2-0 Proline sutures at the exit site. A retention suture was placed using 2-0 Proline too as he was oozing from the exit site. The new and old venotomy sites were repaired using 3-0 Vicryl. Complications: None Estimated Bleeding: < 5cc HD tomorrow. Fluoro Time: 1.4 Seconds IV Contrast: Zero Radiation Exposure: 28 mGy Pre Op Meds: Clindamycin 600 mg IVPB Fentanyl: 75 Mcg Versed: 0.75 mg
--- NOTE | 2019-08-08 15:09 | OP ---
Operative Report - Blank - Operative Report Date of Operation: 08/08/19 Note: Date of Operation: 08/08/19 Procedure Note Tunneled HD Catheter Removal Note: Performed by Dr. Lorelei Robb, [facility] Nephrology Right Internal Jugular Tunneled Hemodialysis Catheter Removal Note: Procedure indication: ESRD, Access dysfunctional old Rt IJ TDC needs a new access. Following strict hand hygiene and standard sterile precautions, using a cap, face mask with an eye shield, and double sterile gloves. Neck and Chest were prepped with 2% Chlorhexidine. Skin over exit site and tunnel were numbed thoroughly using 30 cc of 1% Lidocaine, then using a curved Tali, the exit site was bluntly dissected and the cuff was freed easily from the fibrin sheath around it. Under Fluoro, the catheter was examined, and the tip is in the Cavo-atrial junction and kissing the vessel wall with breathing, but once the TDC was pulled out an inch, the tip is freely floating and not touching nor kissing the wall, hence a new catheter with Tip thats more cephalad will be placed. The TDC was pulled out easily. Bleeding was controlled and pressure was applied for 5 min at the exit site and the venotomy. Complications: None Estimated Bleeding: < 5cc Patient tolerated the procedure well. A new catheter will be placed via a new venotomy and a new exit site.
--- NOTE | 2019-08-08 15:12 | OP ---
Operative Report - Blank - Operative Report Date of Operation: 08/08/19
[2019-08-08 15:38] VITALS: BP 129/81
== END | disposition home or self-care (01) ==
LOC: CHICATH 11:01
PROVIDERS: ATTEND Internal Medicine Nephrology
DX: I12.0 Hypertensive chronic kidney disease with stage 5 chronic kidney disease or end stage renal disease (principal); N18.6 End stage renal disease; Z49.01 Encounter for fitting and adjustment of extracorporeal dialysis catheter; E11.22 Type 2 diabetes mellitus with diabetic chronic kidney disease; Z79.4 Long term (current) use of insulin
CPT/HCPCS: 36558; 36589; 76937; 99156; 99157; C1750; C1769; J1644; J2250; J3010

== ENCOUNTER → 2019-08-27 08:15 | Day surgery (SDC) | payer MEDICARE ==
--- NOTE | 2019-08-24 03:43 | HP ---
HISTORY AND PHYSICAL: DATE OF ADMISSION: 08/27/19 CHIEF COMPLAINT: End-stage renal disease, admission for hemodialysis access placement. HISTORY OF PRESENT ILLNESS: The patient is a 73-year-old female, who has a history of progressive chronic kidney disease that deteriorated to the point of requiring hemodialysis in July of 2019 after the patient sustained a right hip fracture and underwent surgical correction for it. In the postoperative period , it appears that the patient's renal function deteriorated to the point that she required hemodialysis. The patient is being admitted at this time for placement of a left arm arteriovenous [place]-Magen graft for hemodialysis access. PAST MEDICAL HISTORY: The patient's past medical history is remarkable for end - stage renal disease, history of hypertension, history of type 2 diabetes, now insulin-dependent, history of gastroesophageal reflux disease, and history of high cholesterol. MEDICATIONS: The patient's current medications include: 1. Acetaminophen 325 mg tablet 2 tablets p.o. q.6 hours as needed. 2. Amlodipine besylate 5 mg tablets 1 tablet p.o. daily. 3. Aspirin 81 mg 1 tablet p.o. daily. 4. Biscolax suppository 10 mg 1 suppository q.24 hours as needed. 5. Fluticasone propionate suspension 50 mcg/act spray in the nostril for allergies. 6. Folic acid 1 mg tablet p.o. daily. 7. Gabapentin 100 mg tablets 1 tablet p.o. 3 times a day. 8. Humalog solution 100 units per mL, 10 units subcu before meals. 9. Lantus insulin 10 units subcu at bedtime. 10. Melatonin 3 mg tablet 1 tablet p.o. nightly. 11. Metoprolol ER 50 mg tablets 1 tablet p.o. daily. 12. MiraLax as needed. 13. Pepcid 20 mg tablets 1 tablet p.o. daily. 14. Quetiapine fumarate 25 mg tablets 1 tablet p.o. daily. 15. Senna tablets 8.6 mg 2 tablets p.o. q.h.s. 16. Sertraline 75 mg p.o. daily. 17. Synthroid 112 mcg tablets 1 tablet p.o. daily. 18. Vitamin C 500 mg tablets once daily. 19. Vitamin D 2000 tablets 1 tablet p.o. daily. ALLERGIES: The patient's allergy history is remarkable for HEPARIN, BUPROPION, HYDROCODONE, and METFORMIN. FAMILY HISTORY: Father and mother had a history of hypertension and diabetes. SOCIAL HISTORY: The patient lives in a detention and is retired, nonsmoker. REVIEW OF SYSTEMS: The patient's review of systems is contributory for: Gastrointestinal: Gastroesophageal reflux disease. Endocrine: Diabetes mellitus. Cardiovascular: Hypertension and congestive heart failure. Oncological: History of breast cancer, history of hypothyroidism. Renal: End- stage renal disease. Musculoskeletal: Arthritis, recent fall with fracture of right hip, surgically corrected. PHYSICAL EXAMINATION GENERAL: The patient is alert and oriented, in no acute distress. She is sitting in a wheelchair where she spends most of the day. She is very limited ambulation stein; she can get from the wheelchair to the bed, but does not regularly ambulate. VITAL SIGNS: Height 66, weight 200 pounds. Blood pressure on the right arm 135 /70, blood pressure on the left arm 127/81. The pulses are 80, respirations of 18. HEENT: Head and neck: There is a tunneled catheter on the right internal jugular. No nodes or masses. No JVDs noted. LUNGS: Clear to auscultation bilaterally. HEART: Regular without murmurs. ABDOMEN: Globular with obesity. EXTREMITIES: Upper extremities: The patient has palpable pulses bilaterally at the axillary, brachial, and radials; nonpalpable at the ulnars, but present on Doppler. The patient is right-hand dominant and she has no visible superficial veins that can be used for dialysis access. Therefore, the patient will require a [place] graft for hemodialysis to be placed on the left arm being the nondominant arm. Lower extremities: There is bilateral 2+ edema with weak palpable pulses, but no evidence of gangrene or ischemic changes. IMPRESSION: Diagnostic impression is that of end-stage renal disease. The patient is being admitted for placement of hemodialysis graft, specifically [place] -Magen in the left arm. The patient understands that there are potential complications including occlusion, thrombosis, bleeding, infection, etc. The thrombosis and occlusion is more likely because the patient is allergic to HEPARIN and the surgery cannot be done using HEPARIN, therefore increasing the risk of thrombosis. The patient understands, agrees, and wishes to proceed with the surgery. [id number]/[facility] #: [id number] [facility]
[~2019-08-27 08:15] MED LIST changes: +Buffered Lidocaine 1% SYRIN* 1 ML/SYRINGE INTRADERM ONE; +Bupivacaine 0.25% SDV* 30 ML ONE; -Clindamycin 600 MG/D5W BAG(*) 600 MG/50 ML BAG IV ONE; -Clindamycin 600 MG/NS BAG(*) 600 MG/50 ML BAG IV ONE; +HYDROmorphone INJ1* 1 MG/ML SYRINGE IV PRN; -Heparin 2 UNITS/ML IVPREMIX* 1,000 ML IV ONE; -Heparin(*) 1000 UNIT/ML 10 ML VIAL CATH LAB IV ONE; -Iodixanol 320 (CONTRAST) 100 ML SDV ONE; -Iohexol 180 (CONTRAST) 10 ML SDV IV ONE; +KETAMINE HCL* 50 MG/ML 10 ML VIAL ONE; +Lactated Ringers 1000 ML Bag* 1,000 ML IV SCH; +Lidocaine 2% PF * 5 ML VIAL ONE; +Naloxone* 0.4 MG/ML 1 ML VIAL IV PRN; +Ondansetron INJ* 2 MG/ML VIAL IV PRN; +Propofol* 10 MG/ML 20 ML BTL ONE; +ceFAZolin 2 GM PREMIX in ORs 2 GM/50 ML BAG ONE; +fentaNYL* 50 MCG/ML 2 ML VIAL (100 MCG VIAL) IV PRN; +oxyCODONE TAB* 5 MG TAB PO PRN
[2019-08-27 14:06] LABS: Urine Appearance Turbid; Urine Bilirubin Negative (Negative); Urine Blood 2+ (Negative); Urine Color Yellow; Urine Glucose Negative (Negative); Urine Ketones Negative (Negative); Urine Nitrite Negative (Negative); Urine Protein 2+(100 mg/dL) (Negative); Urine Specific Gravity 1.008 (1.010-1.030); Urine Urobilinogen Negative (Negative)
[2019-08-27 14:28] VITALS: BP 162/87
[2019-08-27 14:35] LABS: Urine Bacteria 3+ (Absent); Urine Red Blood Cell Absent (Absent); Urine Squamous Epithelial Cell Present (Absent); Urine White Blood Cell 3+(>20/hpf) (Absent)
--- NOTE | 2019-08-27 14:35 | OP ---
OPERATIVE REPORT: DATE OF OPERATION: 08/27/19 - [facility] DATE OF : 41 SURGEON: Wood Rothman MD LIBRARY TECHNICIAN: Lucero West NP ANESTHESIA: Local plus MAC. PRE-OP DIAGNOSIS: End-stage renal disease. POST-OP DIAGNOSIS: End-stage renal disease. OPERATIVE PROCEDURE: Left arm brachial arteriovenous graft. ESTIMATED BLOOD LOSS: Approximately 20 cc. PROSTHESIS USED: [place]aten 4 to 6 taper vascular graft. INDICATIONS: The patient is a 73-year-old female with end-stage renal disease, undergoing hemodialysis via tunneled dialysis catheter. The patient is undergoing placement of arteriovenous graft of the left arm because the patient has no peripheral veins useful for fistula. DESCRIPTION OF PROCEDURE: The patient was taken to the procedure room. She underwent proper identification of patient and site of surgery. She was then taken to the operating room under sedation and after that the patient was prepped and draped in the usual sterile fashion. After receiving intravenous antibiotics, a proper time-out was performed. After this was done, lidocaine 1 % was used to infiltrate on the medial aspect of the upper left arm. An oblique incision was performed in this area after the patient had been properly prepped and draped. Bleeders were controlled by electrocoagulation. The incision was deepened down through the skin and subcutaneous tissue. The fascia was then identified, opened, and exposure of the neurovascular bundle of the arm was done exposing the brachial vein and then the brachial artery. They were encircled in vessel loops proximally and distally, and after this was done , we then proceeded to map the tunnel. We selected a taper 4 to 6 mm [place]-Magen graft, and after the mapping .. We proceeded to infiltrate lidocaine 1% mixed with Marcaine and after this was done using a curved [place]-Magen tunneler, this was placed superficial under the skin. A counterincision was made at the antecubital area and the tunnel then was tunneled again from the other side and a full loop was connected. The graft was positioned in such a way that the outside limb was the venous side and the inside limb was the arterial side. Therefore, it was an inside out configuration in the loop graft. After this was done, we then proceeded to cross-clamp the brachial vein proximally and distally. We did not use heparin because the patient is allergic to heparin. A venotomy was performed with an 11- blade and the incision was extended with Colon scissors after the vein had been properly cross clamped. After this was done, the end of the venous side of the [place]-Magen was then leveled using a curved Lambert scissors. After this was done, an end-to-side anastomosis was used in a continuous fashion with 6-0 Prolene in a parachute technique. Once this was completed, the graft was then irrigated with saline and was then cross- clamped close to the anastomosis. We then proceeded to fashion the end of the arterial side, the [address] where it was going to be on the brachial artery. Once this was done, we then proceeded to use a small Satinsky clamp to cross-clamp the brachial artery. This was then done and arteriotomy was performed and this was extended with Colon scissors, an end-to-side anastomosis with 6-0 Prolene was done. The patient had some degree of arteriosclerotic plaque at the level of the artery, which was easily removed. The anastomosis was done in an end-to-side uneventful fashion, and after this was done, the clamp on the venous side was released. Then, the arterial side was released and flow was established into the graft. Minor needle holes were controlled by suturing at the site and the pressure at the end of the procedure. There was no evidence of bleeding. The patient has excellent palpable radial pulse, although she has good flow and thrill into the graft. After this was done, the incisions were closed. The medial incision with subcutaneous tissue with 4-0 Vicryl suture and the skin with subcuticular 5-0 Monocryl suture. The counterincision was closed in the same manner as well. The patient tolerated the procedure well, and she was taken in good condition to recovery room. [id number]/[facility] #: [id number] [facility]
== END | disposition home or self-care (01) ==
LOC: OR 08:15
PROVIDERS: ATTEND Surgery
DX: I12.9 Hypertensive chronic kidney disease with stage 1 through stage 4 chronic kidney disease, or unspecified chronic kidney disease (principal); N18.6 End stage renal disease; E11.21 Type 2 diabetes mellitus with diabetic nephropathy; Z79.4 Long term (current) use of insulin; K21.9 Gastro-esophageal reflux disease without esophagitis; E78.00 Pure hypercholesterolemia, unspecified; E03.9 Hypothyroidism, unspecified; F03.90 Unspecified dementia, unspecified severity, without behavioral disturbance, psychotic disturbance, mood disturbance, and anxiety
CPT/HCPCS: 81003; 81015; 87077; 87086; 87186; C1768; J0690; J2250; J2704; J3010; J3490

== ENCOUNTER 2019-08-30 15:46 | Emergency (ER) | payer MEDICARE ==
--- NOTE | 2019-08-30 15:55 | ED ---
Altered Mental Status - HPI Summary HPI Summary: Patient is a 73 y/o F presenting to the ED via EMS for a chief complaint of altered mental status. Per EMS, after receiving dialysis treatment on 08/30/19, patient was not answering questions to baseline and was more difficult to rouse. Patient is now responding appropriately per EMS, but continues to moan. Patient moans at baseline due to diffuse myalgia after dialysis per [facility] Staff. She is a resident of [facility]. No aggravating or alleviating factors are noted. HISTORY OF PRESENT ILLNESS IS LIMITED DUE TO LEVEL 5 CAVEAT - ALTERED MENTAL STATUS. - History Of Current Complaint Stated Complaint: AMS PER EMS Hx Obtained From: EMS Hx Last Menstrual Period: na Onset/Duration: Still Present Timing: Constant Severity Initially: Severe Severity Currently: Severe Character: Responsiveness - Decreased Aggravating Factor(s): Nothing Alleviating Factor(s): Nothing - Allergies/Home Medications Allergies/Adverse Reactions: Allergies Allergy/AdvReac Type Severity Reaction Status Date / Time bupropion [From Wellbutrin] Allergy Intermediate Diarrhea Verified 08/27/19 09: 01 heparin Allergy Hives Verified 08/27/19 09:01 hydrocodone Allergy Rash Verified 08/27/19 09:01 metformin Allergy Itching Verified 08/27/19 09:01 Home Medications: Home Medications Fluticasone NASAL SPRAY 50MCG* [Flonase NASAL SPRAY 50MCG*] 1 spray BOTH NARES QAM 05/17/19 [History Confirmed 08/30/19] Acetaminophen [Pain Relief Extra Strength] 325 mg PO Q6H PRN 05/31/19 [History Confirmed 08/30/19] Bisacodyl 10 mg SUPP [Dulcolax Supp*] 10 mg [place] DAILY PRN 06/26/19 [History Confirmed 08/30/19] Folic Acid TAB* [Folvite TAB*] 1 mg PO QAM 06/26/19 [History Confirmed 08/30/19] Gabapentin CAP(*) [Neurontin 100 mg CAP(*)] 100 mg PO TID 06/26/19 [History Confirmed 08/30/19] Metoprolol Succinate XL TAB* [Toprol XL TAB*] 50 mg PO QAM 06/26/19 [History Confirmed 08/30/19] HYDROmorphone TAB* [Dilaudid TAB*] 2 mg PO Q6H PRN 08/08/19 [History Confirmed 08/30/19] Insulin LISPRO* [HumaLOG 100 units/ml 3 ml VIAL *] 18 units SUBCUT AC 08/08/19 [ History Confirmed 08/30/19] Menthol [Icy Hot Back Patch] 5 % EX DAILY 08/08/19 [History Confirmed 08/30/19] Polyethylene Glycol 3350* [Miralax (17 GM DOSE SARBJIT)] 17 gm PO EVERY OTHER DAY [History Confirmed 08/30/19] Ascorbic Acid TAB* [Vitamin C TAB*] 500 mg PO DAILY 08/30/19 [History Confirmed 08/30/19] Aspirin EC TAB* [Ecotrin EC Low Dose 81 MG*] 81 mg PO DAILY 08/30/19 [History Confirmed 08/30/19] Cholecalciferol TAB* [Vitamin D TAB*] 2,000 units PO DAILY 08/30/19 [History Confirmed 08/30/19] Famotidine TAB* [Pepcid 20 MG TAB*] 20 mg PO DAILY 08/30/19 [History Confirmed 08/30/19] Insulin GLARGINE(*) [Lantus 100 units/ml 10 ml VIAL (*)] 15 units SUBCUT DAILY 08/30/19 [History Confirmed 08/30/19] Levothyroxine TAB* [Synthroid TAB*] 112 mcg PO DAILY 08/30/19 [History Confirmed 08/30/19] Melatonin (NF) 3 mg PO BEDTIME 08/30/19 [History Confirmed 08/30/19] Nitrofurantoin Macrocrystals* [Macrodantin 100 mg*] 100 mg PO BID 08/30/19 [ History Confirmed 08/30/19] QUEtiapine TAB* [Seroquel 25 MG TAB*] 25 mg PO DAILY 08/30/19 [History Confirmed 08/30/19] Senna TAB 8.6 mg* [Senokot 8.6 mg TAB*] 2 tab PO BEDTIME 08/30/19 [History Confirmed 08/30/19] Sertraline* [Zoloft*] 75 mg PO DAILY 08/30/19 [History Confirmed 08/30/19] amLODIPine TAB* [Norvasc 5 mg TAB*] 5 mg PO DAILY 08/30/19 [History Confirmed ] PMH/Surg Hx/FS Hx/Imm Hx Previously Healthy: No - LIMITED DUE TO LEVEL 5 CAVEAT - ALTERED MENTAL STATUS. Endocrine/Hematology History: Reports: Hx Diabetes - HX OF-NURSE REPORTS INSULIN DEPENDENT, Hx Thyroid Disease - HX OF-ON MEDICATION FOR, Hx Anemia Denies: Hx Bone Marrow Disease, Hx Systemic Lupus Erythematosus, Hx Sickle Cell Disease Cardiovascular History: Reports: Hx Congestive Heart Failure - HX OF-NURSE REPORTS 2019, Hx Deep Vein Thrombosis, Hx Embolism, Hx Hypercholesterolemia, Hx Hypertension - HX OF-ON MEDICATION FOR, Hx Syncope Denies: Hx Angina, Hx Pacemaker/ICD, Hx Peripheral Vascular Disease, Hx Rheumatic Fever, Other Cardiovascular Problems/Disorders Respiratory History: Reports: Hx Pulmonary Embolism - HX OF-NURSE REPORTS NO ANTICOAGULANT THERAPY 2017, Other Respiratory Problems/Disorders - STOP BANG SCORE=3; SEGUNDO SCORE: SEGUNDO INTERMEDIATE RISK Denies: Hx Asthma, Hx Chronic Obstructive Pulmonary Disease (COPD), Hx Sleep Apnea GI History: Reports: Hx Gall Bladder Disease, Hx Gastroesophageal Reflux Disease - HX OF, Hx Irritable Bowel Denies: Hx Cirrhosis, Hx Crohn's Disease, Hx Hiatal Hernia, Hx Ulcer, Other GI Disorders History: Reports: Hx Acute Renal Failure, Hx Chronic Renal Failure, Hx Dialysis, Other Problems/Disorders - UTI Denies: Hx Renal Disease Musculoskeletal History: Reports: Hx Back Problems, Hx Orthopedic Injury - R ankle fracture, Other Musculoskeletal History - NURSE REPORTS PT AT [facility] FOR RT HIP FX-06/2019, FOR REHAB Denies: Hx Arthritis, Hx Bursitis, Hx Tendonitis Sensory History: Reports: Hx Cataracts - BILATERAL, Hx Contacts or Glasses - GLASSES, Hx Vision Problem - Retinopathy Denies: Hx Glaucoma, Hx Hearing Aid, Hx Hearing Problem Opthamlomology History: Reports: Hx Cataracts - BILATERAL, Hx Contacts or Glasses - GLASSES, Hx Vision Problem - Retinopathy Denies: Hx Glaucoma Neurological History: Denies: Hx Dementia, Hx Headaches, Hx Nerve Disease, Hx Seizures, Other Neuro Impairments/Disorders Psychiatric History: Reports: Hx Anxiety - HX OF, Hx Depression - HX OF-ON MEDICATION FOR, Hx Panic Disorder, Hx Post Traumatic Stress Disorder, Hx Inpatient Treatment, Hx Schizophrenia Denies: Hx Eating Disorder, Hx of Violent Episodes Against Others - Cancer History Cancer Type, Location and Year: breast cancer with lumpectomy 01/2010 Hx Chemotherapy: No Hx Radiation Therapy: Yes - Surgical History Surgical History: Yes Surgery Procedure, Year, and Place: APPENDECTOMY. CHOLECYSTECTOMY. INTESTINAL. TONSILLECTOMY. RIGHT BREAST LUMPECTOMY Hx Anesthesia Reactions: No - Immunization History Date of Tetanus Vaccine: unk Date of Influenza Vaccine: Mar 2018 Infectious Disease History: Yes Infectious Disease History: Reports: Hx Clostridium Difficile, Hx of Known/ Suspected MRSA Denies: Hx Hepatitis, Hx Human Immunodeficiency Virus (HIV) - Family History Known Family History: Positive: Respiratory Disease - COPD. Parents both from emphysema. , Other - Father - CVA, Sister - breast CA Negative: Cardiac Disease Family History: depression; ETOH abuse - Social History Occupation: Retired Lives: Assisted Living Alcohol Use: None Alcohol Amount: 2 per year Hx Substance Use: No Substance Use Type: Reports: None Substance Use Comment - Amount & Last Used: Hasn't been able to for years Hx Tobacco Use: Yes Smoking Status (MU): Former Smoker Type: Cigarettes Amount Used/How Often: 1ppd Length of Time of Smoking/Using Tobacco: 18 years Have You Smoked in the Last Year: No Review of Systems Positive: Myalgia - Diffuse Neurological/Mental Status: Other - Positive altered mental status and decreased responsiveness All Other Systems Reviewed And Are Negative: No - Comments Additional Review of Systems Comments: REVIEW OF SYSTEMS IS LIMITED DUE TO LEVEL 5 CAVEAT - ALTERED MENTAL STATUS. Physical Exam - Summary Physical Exam Summary: PHYSICAL EXAM IS LIMITED DUE TO LEVEL 5 CAVEAT - ALTERED MENTAL STATUS. Constitutional: Well-developed, Obese, Alert. (-) Distressed Skin: Warm, Dry, Pale. HENT: Normocephalic; Atraumatic Eyes: Conjunctiva normal Neck: Musculoskeletal ROM normal neck. (-) JVD, (-) Stridor, (-) Tracheal deviation Cardio: Rhythm regular, Tachycardic, Heart sounds normal; Intact distal pulses; The pedal pulses are 2+ and symmetric. Radial pulses are 2+ and symmetric. (-) Murmur Pulmonary/Chest wall: Effort normal. (-) Respiratory distress, (-) Wheezes, (-) Rales Abd: Soft, (-) tenderness, (-) Distension, (-) Guarding, (-) Rebound Musculoskeletal: (-) Edema Lymph: (-) Cervical adenopathy Neuro: Patient is moaning incomprehensible speech, no focal deficits are noted. Psych: Mood and affect Normal Triage Information Reviewed: Yes Vital Signs Reviewed: Yes Completion Of Physical Exam Limited Due To: Altered Mental Status, Level 5 - [place] Coma Scale Best Eye Response: 3 - To Speech Best Motor Response: 6 - Obeys Commands Best Verbal Response: 2 - Incomprehensible Words Coma Scale Total: 11 Procedures - Sedation Patient Received Moderate/Deep Sedation with Procedure: No Diagnostics - Laboratory Result Diagrams: 08/30/19 16:14 08/30/19 16:14 Lab Statement: Any lab studies that have been ordered have been reviewed, and results considered in the medical decision making process. - Radiology Chest X-ray Radiology Interpretation Completed By: ED Physician Summary of Radiographic Findings: Chest X-ray IMPRESSION: no acute disease. Reviewed and interpreted by Dr. Madrid, pending official radiology report. - CT Brain CT CT Interpretation Completed By: Radiologist Summary of CT Findings: Brain CT IMPRESSION: #. No acute intracranial process evident. Involutional change and stigmata of chronic small vessel ischemic disease. #. Correlate for potential acute LEFT maxillary sinusitis. Reviewed by Dr. Madrid. - Ultrasound Abdomen US Ultrasound Interpretation Completed By: Radiologist Summary of Ultrasound Findings: Abdomen US IMPRESSION: #. Normal sonographic appearance of the liver. #. Post cholecystectomy which may account for mild prominence of the common bile duct. #. Mild to moderate RIGHT renal cortical atrophy. Negative for hydronephrosis. Reviewed by Dr. Madrid. Re-Evaluation - Re-Evaluation First Eval Re-Evaluation Time: 16:01 Change: Unchanged Comment: At 16:01, patients nurse spoke to [facility] staff who states patient takes several psychiatric medications and is given 2 mg Dilaudid after dialysis. Recently, patient was diagnosed with a UTI. Patients current symptoms are at baseline after receiving dialysis. Altered Mental Statu Course/Dx - Course Course Of Treatment: LIMITED DUE TO LEVEL 5 CAVEAT - ALTERED MENTAL STATUS. Patient is a 73 y/o F presenting to the ED via EMS for a chief complaint of altered mental status. Per EMS, after receiving dialysis treatment on 08/30/19, patient was not answering questions to baseline and was more difficult to rouse. Patient is now responding appropriately per EMS, but continues to moan. Patient moans at baseline due to diffuse myalgia after dialysis per [facility] Staff. On exam, obese, tachycardic, pale, patient is moaning incomprehensible speech, no focal deficits are noted. In the ED course, patient was given Rocephin 1000 mg IM, Dilaudid 1 mg IV, Lidocaine 3.6 ml IM, morphine 2 mg IM, and IV fluids. At 16:01, patients nurse spoke to [facility] staff who states patient takes several psychiatric medications and is given 2 mg Dilaudid after dialysis. Recently, patient was diagnosed with a UTI. Patients current symptoms are at baseline after receiving dialysis. Chest X- ray IMPRESSION: no acute disease. Brain CT IMPRESSION: #. No acute intracranial process evident. Involutional change and stigmata of chronic small vessel ischemic disease. #. Correlate for potential acute LEFT maxillary sinusitis. Abdomen US IMPRESSION: #. Normal sonographic appearance of the liver. #. Post cholecystectomy which may account for mild prominence of the common bile duct. #. Mild to moderate RIGHT renal cortical atrophy. Negative for hydronephrosis. Laboratory abnormal findings: WBC 24.6, Hgb 9.1, absolute neuts 23.9, band neutrophils % 16, creatinine 2.84, lactic acid 2.4, AST 216, ALT 75, alkaline phosphatase 283, CRP 157. UA shows urine protein 2+, urine blood 1+, urine leukocyte esterase 3+, urine glucose 3+. All other abnormal lab results are not pertinent to current cc. At 18:25, Dr. Mai Murguia at [facility] reviewed the patients case and agrees to accept the patient as a transfer to their facility for a diagnosis of sepsis, UTI, end stage renal disease, and elevated LFTs. Patient requires transfer as patient requires a higher level of care not available at [facility]. Patient presents from dialysis with reported confusion. Patient febrile with labs revealing leukocytosis with bandemia. Patient currently being treated for UTI. Urine culture reported on 08/29/19 reveals Escherichia coli which appears pansensitive. Patient given two 250 cc boluses of NS in the ED along with 1 g of ceftriaxone for UTI/sepsis. CXR: NAD. Patient has no respiratory symptoms. No reported COVID-19 cases at patient's correction. Blood cultures pending. VSS at time of dictation. Patient will be transferred to [facility] with a diagnosis of sepsis, UTI, end stage renal disease, and elevated LFTs. - Diagnoses Provider Diagnoses: Sepsis, UTI (urinary tract infection), ESRF (end stage renal failure), Elevated LFTs - Provider Notifications Discussed Care Of Patient With: Mai Murguia - At 18:25, Dr. Mai Murguia at [facility] reviewed the patients case and agrees to accept the patient as a transfer to their facility for a diagnosis of sepsis, UTI, end stage renal disease, and elevated LFTs. Patient requires transfer as patient requires a higher level of care not available at [facility]. Time Discussed With Above Provider: 18:25 Instructed by Provider To: Transfer Reason For Transfer: Patient not appropriate for [facility]., Other: - Patient requires higher level of care not available at [facility]. Discharge ED - Sign-Out/Discharge Documenting (check all that apply): Patient Departure - Transfer - Discharge Plan Condition: Stable Disposition: TRANS HIGHER LVL OF CARE FAC Referrals: Zakia Zurita MD [Primary Care Provider] - - Billing Disposition and Condition Condition: STABLE Disposition: Trans Higher Lvl of Care Fac - Attestation Statements Document Initiated by Scribe: Yes Documenting Scribe: Aimee Chaidez Provider For Whom Cristela is Documenting (Include Credential): Tre Madrid DO Scribe Attestation: Aimee Lopes scribed for Tre Madrid DO on 08/30/19 at 1929. Scribe Documentation Reviewed: Yes Provider Attestation: The documentation as recorded by the Aimee khan accurately reflects the service I personally performed and the decisions made by Tre funez DO Status of Scribe Document: Viewed
--- OUTSIDE RECORDS SUMMARY | 2019-08-30 16:20 | XMS REPORT | Continuity of Care Document ---
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 Onset: 2017 Adjustment disorder with depressed mood Jean Carlos Lou, N.PJustine Onset: 2017 Gastroesophageal reflux disease Jean Carlos Lou, N.P. Onset: 12/26/2017 Hyperlipidemia Jean Carlos Lou, N.P. Onset: 12/26/2017 Type 2 diabetes mellitus Jean Carlos Lou, N.P. Onset: 12/26/2017 Acute renal failure syndrome Jean Carlos Lou, N.P. Onset: 12/26/2017 Dehydration Jean Carlos Lou, N.P. Onset: 12/26/2017 Hyperosmolar non-ketotic state due to Shahrzad Davis NP Onset: 12/30/2017 diabetes mellitus Anemia Shahrzad Davis NP Onset: 12/30/2017 Unspecified Escherichia coli [E. coli] Corky Crawford MD Onset: 03/2018 as the cause of diseases classified elsewhere Constipation Corky Crawford MD Onset: 01/01/2018 Chronic kidney disease Corky Crawford MD Onset: 01/02/2018 Noncompliance with treatment Corky Crawford MD Onset: 01/02/2018 Closed fracture of neck of femur Kevin Hahn MD Onset: 06/01/2019 Social History Type Date Description Comments Sex Unknown ETOH Use Never used alcohol Tobacco Use Start: Unknown End: Patient is a former smoker quit 1983 Unknown Smoking Status Reviewed: 06/22/19 Patient is a former smoker quit 1983 Exercise Type/Frequency Exercises sporadically Allergies, Adverse Reactions, Alerts Active Allergies Reaction Severity Comments Date Metformin 10/24/2017 Vicodin 11/18/2017 Hydrocodone 08/21/2018 Heparin 06/22/2019 Medications Active Medications SIG Qnty Indications Ordering Date Provider Jaciel 2 packets by 90units Kari Ferguson 07/20/2019 2.4gm Packet mouth with MD Clarisse meals and 1 pckt with snacks Senna take 2 tablets Unknown 8.6mg Tablets by mouth every day as needed Bisacodyl use one a day Unknown 10mg Suppository as needed Novolin 70/30 sliding scale Unknown (70-30)100Unit/ML Suspension Amlodipine Besylate 1 by mouth Unknown 10mg every day Tablets Lovenox inject 30 mg Unknown 30mg/0.3ML Solution once daily Cholecalciferol 1000 unit 2 Unknown Powder tablet by mouth every day Quetiapine Fumarate 1 tab by mouth Unknown 25mg at at bedtime Tablets Sertraline HCL 1.5 tablets by Unknown 50mg Tablets mouth every day Guaiasorb DM 10 ml every 4 Unknown 10-100mg/5ML hours as needed Liquid Loratadine once a day Unknown 10mg Capsules Tramadol HCL 1 tablet by Unknown 50mg Tablets mouth every 6 hours as needed pain Metoprolol Succinate ER 1 by mouth Unknown every day 50mg Tablets ER 24HR Gabapentin 1 capsule three Unknown 100mg Capsules times daily. Aspercreme Lidocaine at bedtime Unknown 4% Liquid Ascorbic Acid one tablet by Unknown 500mg Tablets mouth every day KP Folic Acid 1mg daily Unknown 1mg Tablets Ferrous Sulfate 1 by mouth Unknown 325(65Fe) every day mg Tablets Kayexylate 30 GM Mon, Unknown Wed, Fri Fluticasone Propionate 2 sprays each Unknown nostril qd. 50mcg/Act Suspension Aspir-Low 1 by mouth Unknown 81mg Tablets DR every day Miralax 17 GM daily Unknown Melatonin 3mg at bedtime Unknown Lantus 10 units at Unknown bedtime Milk Of Magnesia 30 ml daily as Unknown needed Tylenol Extra Strength 1-2 tabs by Unknown mouth every 6 500mg Tablets hours as needed Omeprazole 1 by mouth Unknown 20mg Capsules DR every day Levothyroxine Sodium 1 by mouth Unknown 200mcg every day Tablets History Medications Torsemide 2 by mouth one R60.9 Khloe Ramirez MD 05/07/2019 - 20mg time per day 06/21/2019 Tablets Torsemide 1 tab every day 90tabs R60.1 Khloe Ramirez MD 04/03/2019 - 20mg 05/07/2019 Tablets Medications Administered in Office Medication SIG Qnty Indications Ordering Provider Date Depomedrol 40MG Mark Velez MD 08/21/2018 Injection Immunizations Description No Information Available Vital Signs Date Vital Result Comment 06/22/2019 10:51am Height 66 inches 5'6" Weight 213.25 lb Heart Rate 93 /min BP Systolic 163 mmHg BP Diastolic 85 mmHg Respiratory Rate 18 /min O2 % BldC Oximetry 100 % BMI (Body Mass Index) 34.4 kg/m2 05/07/2019 1:34pm Height 66 inches 5'6" Weight 201.00 lb Heart Rate 74 /min BP Systolic Sitting 158 mmHg right arm reg cuff BP Diastolic Sitting 84 mmHg right arm reg cuff O2 % BldC Oximetry 100 % room air BMI (Body Mass Index) 32.4 kg/m2 Results Test Acquired Date Facility Test Result H/L Range Note Inr/Protime 06/26/2019 [facility] Inr 0.96 Normal 0.82-1.[address] [place] [address] [phone] Standard intensity warfarin therapeutic range: 2.0-3.0 High intensity warfarin therapeutic range: 2.5-3.5 Procedures Date Code Description Status 08/21/2019 36231 Esrd Services 20Yrs 4/More Bqxb-Jn-Jwnj Visits Per Month Completed 08/08/2019 46200 Moderate Sedation Services; Same Phys Each Additional 15 Completed Mins 08/08/2019 91881 Moderate Sedation Services; Same Phys Intl 15 Mins; PT >= Completed 5 Years 08/08/2019 95830 Fluoroscopic Guidance For Cent Completed 08/08/2019 71762 Ultrasound Guidance For Vascular Access Completed 08/08/2019 52003 Removal Of Tunneled Central Venous Cath W/O Subcutaneous Completed Port/MELTER SUPERVISOR ELECTRIC ARC FURNACE 08/08/2019 90277 Insertion Tunneled Cent Venous Cathr W/O Subcut Port/Pump Completed 5Yrs> 07/21/2019 46839 [facility] 20Yrs 4/More Ykeq-Sm-Posm Visits Per Month Completed 06/29/2019 62858 Hemodialysis, One Evaluation Completed 06/28/2019 46713 EKG, Interpretation Only Completed 06/28/2019 82086 Hemodialysis, One Evaluation Completed 06/27/2019 64324 Hemodialysis, One Evaluation Completed 06/26/2019 30728 Fluoroscopic Guidance For Cent Completed 06/26/2019 53120 Ultrasound Guidance For Vascular Access Completed 06/26/2019 83195 Insertion Tunneled Cent Venous Cathr W/O Subcut Port/Pump Completed 5Yrs> 06/01/2019 47550 Percutaneous TX Of Femoral FX Completed 05/31/2019 22142 ECHO Transthorasic Realtime 2D W Doppler & Color Flow Hosp Completed Medical Devices Description No Information Available Encounters Type Date Location Provider Dx Diagnosis Office Visit 06/29/2019 [facility] Rkishna Maricarmen, N18.6 End stage renal 10:28a Assmagno portillo [place] disease Hospitalists E11.9 Type 2 diabetes mellitus without complications I10 Essential (primary) hypertension F32.9 Major depressive disorder, single episode, unspecified F43.10 Post-traumatic stress disorder, unspecified K21.9 Gastro-esophageal reflux disease without esophagitis G89.29 Other chronic pain E03.9 Hypothyroidism, unspecified Office Visit 06/28/2019 10:27a [facility] D63.1 Anemia in Assoc,pc Sera, [employer] chronic kidney Hospitalists disease R09.02 Hypoxemia N18.6 End stage renal disease M25.551 Pain in right hip I10 Essential (primary) hypertension F32.9 Major depressive disorder, single episode, unspecified E11.9 Type 2 diabetes mellitus without complications Office Visit 06/27/2019 10:27a [facility] N18.6 End stage Assoc,magno Zamora, [employer] renal disease Hospitalists M25.551 Pain in right hip I10 Essential (primary) hypertension F32.9 Major depressive disorder, single episode, unspecified E11.9 Type 2 diabetes mellitus without complications Office Visit 06/26/2019 10:24a [facility] Vanesa N18.6 End stage Assoc,pc HARDY Bass renal disease Hospitalists I10 Essential (primary) hypertension F32.9 Major depressive disorder, single episode, unspecified K21.9 Gastro-esophageal reflux disease without esophagitis G89.29 Other chronic pain E11.9 Type 2 diabetes mellitus without complications E03.9 Hypothyroidism, unspecified Office Visit 06/22/2019 10:30a [facility] Khloe Ramirez MD I12.0 Hyp chr kidney disease w stage 5 chr kidney disease or Esrd N18.5 Chronic kidney disease, stage 5 E87.5 Hyperkalemia R60.9 Edema, unspecified I12.9 Hypertensive chronic kidney disease w stg 1-4/unsp chr kdny Office Visit 06/05/2019 3:34p [facility] Kari Ferguson N17.9 Acute kidney MD Clarisse failure, unspecified E87.70 Fluid overload, unspecified N18.9 Chronic kidney disease, unspecified Office Visit 06/05/2019 11:28a [facility] Sade S72.001A Fracture of Assoc,magno Vazquez MD unsp part of Hospitalists neck of right femur, init J18.9 Pneumonia, unspecified organism N18.9 Chronic kidney disease, unspecified E11.22 Type 2 diabetes mellitus w diabetic chronic kidney disease I10 Essential (primary) hypertension F43.10 Post-traumatic stress disorder, unspecified Office Visit 06/04/2019 11:28a [facility] Sade J18.9 Pneumonia, Assoc,pc MD Taylor unspecified Hospitalists organism S72.001A Fracture of unsp part of neck of right femur, init Type 2 diabetes mellitus w diabetic chronic kidney disease N18.5 Chronic kidney disease, stage 5 D64.9 Anemia, unspecified N18.9 Chronic kidney disease, unspecified K59.00 Constipation, unspecified R29.6 Repeated falls I10 Essential (primary) hypertension E03.9 Hypothyroidism, unspecified Office Visit 06/04/2019 8:46a [facility] Kari Ferguson N17.9 Acute kidney MD Clarisse failure, unspecified E87.79 Other fluid overload N18.9 Chronic kidney disease, unspecified R41.0 Disorientation, unspecified [facility], Assoc,pc MD Taylor unspecified Hospitalists organism S72.001A Fracture of unsp part of neck of right femur, init Type 2 diabetes mellitus w diabetic chronic kidney disease N18.5 Chronic kidney disease, stage 5 D64.9 Anemia, unspecified K59.00 Constipation, unspecified R29.6 Repeated falls I10 Essential (primary) hypertension N18.9 Chronic kidney disease, unspecified E03.9 Hypothyroidism, unspecified Office Visit 06/02/2019 [facility] J18.9 Pneumonia, Assoc,pc MD Taylor unspecified Hospitalists organism S72.001A Fracture of unsp part of neck of right femur, init Type 2 diabetes mellitus w diabetic chronic kidney disease N18.5 Chronic kidney disease, stage 5 D64.9 Anemia, unspecified K59.00 Constipation, unspecified R29.6 Repeated falls I10 Essential (primary) hypertension E03.9 Hypothyroidism, unspecified N18.9 Chronic kidney disease, unspecified Office Visit 06/01/2019 11:27a [facility] Krishna S72.001A Fracture of Assoc,pc KEVIN Hernadez unsp part of Hospitalists neck of right femur, init Type 2 diabetes mellitus w diabetic chronic kidney disease N18.5 Chronic kidney disease, stage 5 J18.9 Pneumonia, unspecified organism J96.01 Acute respiratory failure with hypoxia D64.9 Anemia, unspecified K59.00 Constipation, unspecified R29.6 Repeated falls I10 Essential (primary) hypertension E03.9 Hypothyroidism, unspecified Z86.711 Personal history of pulmonary embolism Office Visit 05/31/2019 11:26a [facility] Elly S72.001A Fracture of Assoc,magno Traylor D.O. unsp part of Hospitalists neck of right femur, init J96.01 Acute respiratory failure with hypoxia R79.89 Other specified abnormal findings of blood chemistry E11.9 Type 2 diabetes mellitus without complications D64.9 Anemia, unspecified I10 Essential (primary) hypertension E78.5 Hyperlipidemia, unspecified K21.9 Gastro-esophageal reflux disease without esophagitis E03.9 Hypothyroidism, unspecified F32.9 Major depressive disorder, single episode, unspecified Office Visit 05/07/2019 2:00p [facility] Khloe Ramirez MD I12.0 Hyp chr kidney disease w stage 5 chr kidney disease or Esrd N18.5 Chronic kidney disease, stage 5 R60.9 Edema, unspecified D63.1 Anemia in chronic kidney disease N25.81 Secondary hyperparathyroidism of renal origin I12.9 Hypertensive chronic kidney disease w stg 1-4/unsp chr kdny Office Visit 04/03/2019 2:30p [facility] Khloe Ramirez, I12.9 Hypertensive MD chronic kidney disease w stg 1-4/unsp chr kdny N18.3 Chronic kidney disease, stage 3 (moderate) R60.1 Generalized edema Office Visit 03/12/2019 10:05a [facility] Sade Vazquez, E11.22 Type 2 diabetes Assoc,pc MD mellitus w Hospitalists diabetic chronic kidney disease I10 Essential (primary) hypertension F32.9 Major depressive disorder, single episode, unspecified F43.10 Post-traumatic stress disorder, unspecified G89.29 Other chronic pain K29.70 Gastritis, unspecified, without bleeding W19.xxxA Unspecified fall, initial encounter Z74.2 Need for assist at home & no house memb able to render care Office Visit 03/11/2019 10:05a [facility] Graham Del Cid M54.2 Cervicalgia Assoc,magno Quiles M.D.,FACP Hospitalists N18.3 Chronic kidney disease, stage 3 (moderate) D64.9 Anemia, unspecified N39.0 Urinary tract infection, site not specified E11.22 Type 2 diabetes mellitus w diabetic chronic kidney disease Office Visit 03/07/2019 10:04a [facility] Graham Del Cid M54.2 Cervicalgia Assmagno portillo M.D.,FACP Hospitalists N18.3 Chronic kidney disease, stage 3 (moderate) D64.9 Anemia, unspecified N39.0 Urinary tract infection, site not specified Office Visit 03/04/2019 10:04a [facility] Monique Cerna, I10 Essential ( primary) Assmagno portillo MD hypertension Hospitalists N18.3 Chronic kidney disease, stage 3 (moderate) Office Visit 03/02/2019 10:03a [facility] Monique Cerna MD R29.6 Repeated falls magno Gifford Hospitalists E03.9 Hypothyroidism, unspecified N18.3 Chronic kidney disease, stage 3 (moderate) F32.9 Major depressive disorder, single episode, unspecified E11.22 Type 2 diabetes mellitus w diabetic chronic kidney disease I10 Essential (primary) hypertension I50.32 Chronic diastolic (congestive) heart failure Z86.711 Personal history of pulmonary embolism Office Visit 02/25/2019 [facility] Flakito R03.0 Elevated 10:03a magno Gifford M.D. blood-pressure Hospitalists reading, w/o diagnosis of htn Office Visit 02/23/2019 [facility] Lfakito F32.9 Major depressive 10:02a magno Gifford M.D. disorder, single Hospitalists episode, unspecified N18.3 Chronic kidney disease, stage 3 (moderate) E11.22 Type 2 diabetes mellitus w diabetic chronic kidney disease R29.6 Repeated falls I10 Essential (primary) hypertension J18.9 Pneumonia, unspecified organism Z86.711 Personal history of pulmonary embolism Assessments Date Code Description Provider 08/21/2019 N18.6 End stage renal disease Khloe Ramirez MD 08/08/2019 N18.6 End stage renal disease Kari Robb MD 08/08/2019 T82.49xA Other complication of vascular Kari Robb MD dialysis catheter, initial encounter 08/08/2019 Z99.2 Dependence on renal dialysis Kari Robb MD 08/06/2019 N18.6 End stage renal disease Kari Robb MD 07/21/2019 N18.6 End stage renal disease Khloe Ramirez MD 06/29/2019 N18.6 End stage renal disease KEVIN De Anda 06/29/2019 N18.6 End stage renal disease Khloe Ramirez MD 06/29/2019 E11.9 Type 2 diabetes mellitus without KEIVN De Anda complications 06/29/2019 I10 Essential (primary) hypertension KEVIN De [place]a 06/29/2019 F32.9 Major depressive disorder, single KEVIN De [place] episode, unspecified 06/29/2019 F43.10 Post-traumatic stress disorder, KEVIN De [place] unspecified 06/29/2019 K21.9 Gastro-esophageal reflux disease KEVIN De [place] without esophagitis 06/29/2019 G89.29 Other chronic pain KEVIN De [place]a 06/29/2019 E03.9 Hypothyroidism, unspecified KEVIN De [place]a 06/28/2019 Z13.6 Encounter for screening for Erik Barkley MD, FACC, cardiovascular disorders FSCAI 06/28/2019 D63.1 Anemia in chronic kidney disease Ivy Shortle, [employer] 06/28/2019 N18.6 End stage renal disease Khloe Ramirez MD 06/28/2019 R09.02 Hypoxemia Ivy Shortle, [employer] 06/28/2019 N18.6 End stage renal disease Ivy Shortle, [employer] 06/28/2019 M25.551 Pain in right hip Ivy Shortle, [employer] 06/28/2019 I10 Essential (primary) hypertension Ivy Shortle, [employer] 06/28/2019 F32.9 Major depressive disorder, single Ivy Shortle, [employer] episode, unspecified 06/28/2019 E11.9 Type 2 diabetes mellitus without Ivy Shortle, [employer] complications 06/27/2019 N18.6 End stage renal disease Ivy Shortle, [employer] 06/27/2019 N18.6 End stage renal disease Khloe Ramirez MD 06/27/2019 M25.551 Pain in right hip Ivy Shortle, [employer] 06/27/2019 D63.1 Anemia in chronic kidney disease Khloe Ramirez MD 06/27/2019 I10 Essential (primary) hypertension Ivy Shortle, [employer] 06/27/2019 F32.9 Major depressive disorder, single Ivy Sera, [employer] episode, unspecified 06/27/2019 E11.9 Type 2 diabetes mellitus without Ivy Sera, [employer] complications 06/26/2019 N18.6 End stage renal disease Vanesa O'arslan, PA-C 06/26/2019 N18.6 End stage renal disease Kari Robb MD 06/26/2019 I10 Essential (primary) hypertension Vanesa O'arslan, PA-C 06/26/2019 F32.9 Major depressive disorder, single Vanesa O'arslan, PA-C episode, unspecified 06/26/2019 K21.9 Gastro-esophageal reflux disease Vanesa O'arslan, PA-C without esophagitis 06/26/2019 G89.29 Other chronic pain Vanesa O'arslan, PA-C 06/26/2019 E11.9 Type 2 diabetes mellitus without Vanesa O'arslan, PA-C complications 06/26/2019 E03.9 Hypothyroidism, unspecified Vanesa O'arslna, PA-C 06/22/2019 I12.0 Hypertensive chronic kidney disease Khloe Ramirez MD with stage 5 chronic kidney disease or end stage renal disease 06/22/2019 N18.5 Chronic kidney disease, stage 5 Khloe Ramirez MD 06/22/2019 E87.5 Hyperkalemia Khloe Ramirez MD 06/22/2019 R60.9 Edema, unspecified Khloe Ramirez MD 06/22/2019 I12.9 Hypertensive chronic kidney disease Khloe Ramirez MD with stage 1 through stage 4 chronic kidney disease, or unspecified chronic kidney disease 06/05/2019 S72.001D Fracture of unspecified part of neck KEVIN Santoyo of right femur, subsequent encounter for closed fracture with routine healing 06/05/2019 S72.001A Fracture of unspecified part of neck Sade Vazquez MD of right femur, initial encounter for closed fracture 06/05/2019 N17.9 Acute kidney failure, unspecified Kari Robb MD 06/05/2019 J18.9 Pneumonia, unspecified organism Sade Vazquez MD 06/05/2019 E87.70 Fluid overload, unspecified Kari Robb MD 06/05/2019 N18.9 Chronic kidney disease, unspecified Sade Vazquez MD 06/05/2019 N18.9 Chronic kidney disease, unspecified Kari Robb MD 06/05/2019 E11.22 Type 2 diabetes mellitus with diabetic Sade Vazquez MD chronic kidney disease 06/05/2019 I10 Essential (primary) hypertension Sade Vazquez MD 06/05/2019 F43.10 Post-traumatic stress disorder, Sade Vazquez MD unspecified 06/04/2019 S72.001D Fracture of unspecified part of neck Joel Rosano, PA-C of right femur, subsequent encounter for closed fracture with routine healing 06/04/2019 J18.9 Pneumonia, unspecified organism Sade Vazquez MD 06/04/2019 N17.9 Acute kidney failure, unspecified Kari Robb MD 06/04/2019 S72.001A Fracture of unspecified part of neck Sade Vazquez MD of right femur, initial encounter for closed fracture 06/04/2019 E87.79 Other fluid overload Kari Robb MD 06/04/2019 E11.22 Type 2 diabetes mellitus with diabetic Sade Vazquez MD chronic kidney disease 06/04/2019 N18.9 Chronic kidney disease, unspecified Kari Robb MD 06/04/2019 N18.5 Chronic kidney disease, stage 5 Sade Vazquez MD 06/04/2019 R41.0 Disorientation, unspecantonina Robb MD 06/04/2019 D64.9 Anemia, unspecified Sade Vazquez MD 06/04/2019 N18.9 Chronic kidney disease, unspecified Sade Vazquez MD 06/04/2019 K59.00 Constipation, unspecified Sade Vazquez MD 06/04/2019 R29.6 Repeated falls Sade Vazquez MD 06/04/2019 I10 Essential (primary) hypertension Sade Vazquez MD 06/04/2019 E03.9 Hypothyroidism, primitivo Vazquez MD 06/03/2019 S72.001D Fracture of unspecified part of neck Nidia Bitting, RPA -C of right femur, subsequent encounter for closed fracture with routine healing 06/03/2019 J18.9 Pneumonia, unspecified organism Sade Vazquez MD 06/03/2019 S72.001A Fracture of unspecified part of neck Sade Vazquez MD of right femur, initial encounter for closed fracture 06/03/2019 E11.22 Type 2 diabetes mellitus with diabetic Sade Vazquez MD chronic kidney disease 06/03/2019 N18.5 Chronic kidney disease, stage 5 Sade Vazquez MD 06/03/2019 D64.9 Anemia, unspecified Sade Vazquez MD 06/03/2019 K59.00 Constipation, unspecified Sade Vazquez MD 06/03/2019 R29.6 Repeated falls Sade Vazquez MD 06/03/2019 I10 Essential (primary) hypertension Sade Vazquez MD 06/03/2019 N18.9 Chronic kidney disease, unspecified Sade Vazquez MD 06/03/2019 E03.9 Hypothyroidism, unspecified Sade Vazquez MD 06/02/2019 J18.9 Pneumonia, unspecified organism Sade Vazquez MD 06/02/2019 S72.001A Fracture of unspecified part of neck Sade Vazquez MD of right femur, initial encounter for closed fracture 06/02/2019 E11.22 Type 2 diabetes mellitus with diabetic Sade Vazquez MD chronic kidney disease 06/02/2019 N18.5 Chronic kidney disease, stage 5 Sade Vazquez MD 06/02/2019 D64.9 Anemia, unspecified Sade Vazquez MD 06/02/2019 K59.00 Constipation, unspecified Sade Vazquez MD 06/02/2019 R29.6 Repeated falls Sade Vazquez MD 06/02/2019 I10 Essential (primary) hypertension Sade Vazquez MD 06/02/2019 E03.9 Hypothyroidism, unspecified Sade Vazquez MD 06/02/2019 N18.9 Chronic kidney disease, unspecified Sade Vazquez MD 06/01/2019 S72.001A Fracture of unspecified part of neck KEVIN De And[place] of right femur, initial encounter for closed fracture 06/01/2019 S72.001A Fracture of unspecified part of neck Kevin Hahn MD of right femur, initial encounter for closed fracture 06/01/2019 E11.22 Type 2 diabetes mellitus with diabetic KEVIN De [place] chronic kidney disease 06/01/2019 N18.5 Chronic kidney disease, stage 5 KEVIN De [place] 06/01/2019 J18.9 Pneumonia, unspecified organism KEVIN De [place] 06/01/2019 J96.01 Acute respiratory failure with hypoxia KEVIN De [place]a 06/01/2019 D64.9 Anemia, unspecified KEVIN De [place] 06/01/2019 K59.00 Constipation, unspecified KEVIN De [place] 06/01/2019 R29.6 Repeated falls KEVIN De [place] 06/01/2019 I10 Essential (primary) hypertension KEVIN De [place] 06/01/2019 E03.9 Hypothyroidism, unspecified KEVIN De [place] 06/01/2019 Z86.711 Personal history of pulmonary embolism KEVIN De [place] 05/31/2019 S72.001A Fracture of unspecified part of neck lEly Traylor, D.O. of right femur, initial encounter for closed fracture 05/31/2019 R06.02 Shortness of breath Vishal Soriano, DO [facility] 05/31/2019 J96.01 Acute respiratory failure with hypoxia Elly Layton, D.O. 05/31/2019 R79.89 Other specified abnormal findings of Elly Layton, D.O. blood chemistry 05/31/2019 E11.9 Type 2 diabetes mellitus without Elly Layton, D.O. complications 05/31/2019 D64.9 Anemia, unspecified Elly Layton, D.O. 05/31/2019 I10 Essential (primary) hypertension Elly Layton, D.O. 05/31/2019 E78.5 Hyperlipidemia, unspecified Elly Layton, D.O. 05/31/2019 K21.9 Gastro-esophageal reflux disease Elly Layton, D.O. without esophagitis 05/31/2019 E03.9 Hypothyroidism, unspecified Elly Layton, D.O. 05/31/2019 F32.9 Major depressive disorder, single Elly Layton, D.O. episode, unspecified 05/07/2019 I12.0 Hypertensive chronic kidney disease Khloe Ramirez MD with stage 5 chronic kidney disease or end stage renal disease 05/07/2019 N18.5 Chronic kidney disease, stage 5 Khloe Ramirez MD 05/07/2019 R60.9 Edema, unspecified Khloe Ramirez MD 05/07/2019 D63.1 Anemia in chronic kidney disease Khloe Ramirez MD 05/07/2019 N25.81 Secondary hyperparathyroidism of renal Khloe Ramirez MD origin 05/07/2019 I12.9 Hypertensive chronic kidney disease Khloe [...] 03/12/2019 E11.22 Type 2 diabetes mellitus with diabetic Sade Vazquez MD chronic kidney disease 03/12/2019 I10 Essential (primary) [...] Chronic kidney disease, stage 3 Graham Quiles (moderate) Vicki,FACP 03/11/2019 D64.9 Anemia, unspecified Graham Quiles M.D.,FACP 03/11/2019 N39.0 Urinary tract infection, site not cindi Jerome M.D.,FACP 03/11/2019 E11.22 Type 2 diabetes mellitus with diabetic Graham Quiles, chronic kidney disease Vicki,FACP 03/07/2019 M54.2 Cervicalgia [facility].D.,[facility] 03/07/2019 N18.3 Chronic kidney disease, stage 3 Graham Quiles (moderate) Vciki,FACP 03/07/2019 D64.9 Anemia, unspecified Graham [facility] M.D.,[facility] 03/07/2019 N39.0 Urinary tract infection, site not Graham Quiles, cindi Cohen,[facility] 03/04/2019 I10 Essential (primary) hypertension Monique Cerna MD 03/04/2019 N18.3 Chronic kidney disease, stage 3 Monique Cerna MD (moderate) 03/02/2019 R29.6 Repeated falls Monique Cerna MD 03/02/2019 E03.9 Hypothyroidism, unspecified Monique Cerna MD 03/02/2019 N18.3 Chronic kidney disease, stage 3 Monique Cerna MD (moderate) 03/02/2019 F32.9 Major depressive disorder, single Monique Cerna MD episode, unspecified 03/02/2019 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 without diagnosis of hypertension 02/23/2019 F32.9 Major depressive disorder, single Flakito Conklin M.D. episode, unspecified 02/23/2019 N18.3 Chronic kidney disease, stage 3 Flakito Conklin M.D. 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 chronic kidney disease 02/23/2019 R29.6 Repeated falls Flakito Conklin M.D. 02/23/2019 I10 Essential (primary) hypertension Flakito Conklin M.D. 02/23/2019 J18.9 Pneumonia, unspecified organism Flakito Conklin M.D. 02/23/2019 Z86.711 Personal history of pulmonary embolism Flakito Conklin M.D. Plan of Treatment No Information Available Functional Status Description No Information Available Mental Status Description No Information Available Referrals Description No Information Available
--- OUTSIDE RECORDS SUMMARY | 2019-08-30 16:20 | XMS REPORT | Continuity of Care Document ---
:1945 External Reference #:[id number] Author Name Kari Robb MD (transmitted by agent of provider Quin Paz) Address [address] [place] [address] Care Team Providers Name Role Phone Zakia Zurita MD - Internal Medicine Care Team Information Ball Warper Tender [phone] Problems Active Problems Provider Date Urinary tract infectious disease Corky Crawford MD Onset: 2017 Hyperosmolality and or hypernatremia Corky Crawford MD Onset: 12/27 Chronic kidney disease stage 3 Corky Crawford MD Onset: 12/27/2017 Essential hypertension Corky Crawford MD Onset: 12/27/2017 Hypothyroidism Corky Crawford MD Onset: 12/27/2017 H/O: pulmonary embolus Corky Crawford MD Onset: 12/27/2017 Type II diabetes mellitus uncontrolled Jean Carlos Lou, N.P. Onset: 2017 Adjustment disorder with depressed mood Jean Carlos Lou, N.P. Onset: 2017 Gastroesophageal reflux disease Jean Carlos Lou, N.P. Onset: 12/26/2017 Hyperlipidemia Jean Carlosvance Lou, N.P. Onset: 12/26/2017 Type 2 diabetes [...] Test Result H/L Range Note Inr/Protime 06/26/2019 [facility] Inr 0.96 Normal 0.82-1.[address] [place] [id number] [phone] 1 Standard intensity warfarin therapeutic range: 2.0-3.0 High intensity warfarin therapeutic range: 2.5-3.5 Procedures Date Code Description Status 08/21/2019 71994 Esrd Services 20Yrs 4/More Rxka-Ue-Hleg Visits Per Month Completed 08/08/2019 91700 Moderate Sedation Services; Same Phys Each Additional 15 Completed Mins 08/08/2019 41211 Moderate Sedation Services; Same Phys Intl 15 Mins; PT >= Completed 5 Years 08/08/2019 35052 Fluoroscopic Guidance For Cent Completed 08/08/2019 71475 Ultrasound Guidance For Vascular Access Completed 08/08/2019 48344 Removal Of Tunneled Central Venous Cath W/O Subcutaneous Completed Port/[employer] 08/08/2019 53679 Insertion Tunneled Cent Venous Cathr W/O Subcut Port/Pump Completed 5Yrs> 07/21/2019 42609 Esrd Services 20Yrs 4/More Sabh-Qi-Jaqv Visits Per Month Completed 06/29/2019 21992 Hemodialysis, One Evaluation Completed 06/28/2019 12355 EKG, Interpretation Only Completed 06/28/2019 29463 Hemodialysis, One Evaluation Completed 06/27/2019 22265 Hemodialysis, One Evaluation Completed 06/26/2019 49268 Fluoroscopic Guidance For Cent Completed 06/26/2019 04381 Ultrasound Guidance For Vascular Access Completed 06/26/2019 96380 Insertion Tunneled Cent Venous Cathr W/O Subcut Port/Pump Completed 5Yrs> 06/01/2019 85209 Percutaneous TX Of Femoral FX Completed 05/31/2019 90643 ECHO Transthorasic Realtime 2D W Doppler & Color Flow Hosp Completed Medical Devices Description No Information Available Encounters Type Date Location Provider Dx Diagnosis Office Visit 06/29/2019 [facility] Krishna Hernadez, N18.6 End stage renal 10:28a Assmagno portillo [place] disease Hospitalists E11.9 Type 2 diabetes mellitus without complications I10 Essential (primary) hypertension F32.9 Major depressive disorder, single episode, unspecified F43.10 Post-traumatic stress disorder, unspecified K21.9 Gastro-esophageal reflux disease without esophagitis G89.29 Other chronic pain E03.9 Hypothyroidism, unspecified Office Visit 06/28/2019 10:27a [facility] D63.1 Anemia in Assoc,pc Sera, [employer] chronic kidney Hospitalists disease R09.02 Hypoxemia N18.6 End stage renal disease M25.551 Pain in right hip I10 Essential (primary) hypertension F32.9 Major depressive disorder, single episode, unspecified E11.9 Type 2 diabetes mellitus without complications Office Visit 06/27/2019 10:27a [facility] N18.6 End stage Assoc,magno Zamora, [employer] MA[employer]GER renal disease Hospitalists M25.551 Pain in right hip I10 Essential (primary) hypertension F32.9 Major depressive disorder, single episode, unspecified E11.9 Type 2 diabetes mellitus without complications Office Visit 06/26/2019 10:24a [facility] Vanesa N18.6 End stage Assoc,pc YADI BassC renal disease Hospitalists I10 Essential (primary) hypertension F32.9 Major depressive disorder, single episode, unspecified K21.9 Gastro-esophageal reflux disease without esophagitis G89.29 Other chronic pain E11.9 Type 2 diabetes mellitus without complications E03.9 Hypothyroidism, unspecified Office Visit 06/22/2019 10:30a [facility] Nephrology Khloe Ramirez MD I12.0 Hyp chr kidney disease w stage 5 chr kidney disease or Esrd N18.5 Chronic kidney disease, stage 5 E87.5 Hyperkalemia R60.9 Edema, unspecified I12.9 Hypertensive chronic kidney disease w stg 1-4/unsp chr kdny Office Visit 06/05/2019 3:34p [facility] Nephrology Kari Ferguson N17.9 Acute kidney MD Clarisse failure, unspecified E87.70 Fluid overload, unspecified N18.9 Chronic kidney disease, unspecified Office Visit 06/05/2019 11:28a [facility] Sade S72.001A Fracture of Assoc,magno Vazquez MD unsp part of Hospitalists neck of right femur, init J18.9 Pneumonia, unspecified organism N18.9 Chronic kidney disease, unspecified E11.22 Type 2 diabetes mellitus w diabetic chronic kidney disease I10 Essential (primary) hypertension F43.10 Post-traumatic stress disorder, unspecified Office Visit 06/04/2019 11:28a [facility] Sade J18.9 Pneumonia, Assoc,pc MD Taylor unspecified Hospitalists organism S72.001A Fracture of unsp part of neck of right femur, init Type 2 diabetes mellitus w diabetic chronic kidney disease N18.5 Chronic kidney disease, stage 5 D64.9 Anemia, unspecified N18.9 Chronic kidney disease, unspecified K59.00 Constipation, unspecified R29.6 Repeated falls I10 Essential (primary) hypertension E03.9 Hypothyroidism, unspecified Office Visit 06/04/2019 8:46a [facility] Nephrology Kari Ferguson N17.9 Acute kidney MD Clarisse failure, unspecified E87.79 Other fluid overload N18.9 Chronic kidney disease, unspecified R41.0 Disorientation, unspecified [facility] J[facility] Pneumonia, Assoc,pc MD Taylor unspecified Hospitalists organism S72.001A Fracture of unsp part of neck of right femur, init Type 2 diabetes mellitus w diabetic chronic kidney disease N18.5 Chronic kidney disease, stage 5 D64.9 Anemia, unspecified K59.00 Constipation, unspecified R29.6 Repeated falls I10 Essential (primary) hypertension N18.9 Chronic kidney disease, unspecified E03.9 Hypothyroidism, unspecified [facility] Pneumonia, Assoc,pc MD Taylor unspecified Hospitalists organism S72.001A Fracture of unsp part of neck of right femur, init Type 2 diabetes mellitus w diabetic chronic kidney disease N18.5 Chronic kidney disease, stage 5 D64.9 Anemia, unspecified K59.00 Constipation, unspecified R29.6 Repeated falls I10 Essential (primary) hypertension E03.9 Hypothyroidism, unspecified N18.9 Chronic kidney disease, unspecified Office Visit 06/01/2019 11:27a [facility] Krishna S72.001A Fracture of Assoc,pc KEVIN Hernadez unsp part of Hospitalists neck of right femur, init E11 Type 2 diabetes mellitus w diabetic chronic kidney disease N18.5 Chronic kidney disease, stage 5 J18.9 Pneumonia, unspecified organism J96.01 Acute respiratory failure with hypoxia D64.9 Anemia, unspecified K59.00 Constipation, unspecified R29.6 Repeated falls I10 Essential (primary) hypertension E03.9 Hypothyroidism, unspecified Z86.711 Personal history of pulmonary embolism Office Visit 05/31/2019 11:26a [facility] Elly S72.001A Fracture of Assoc,magno Traylor D.O. [...] single episode, unspecified Office Visit 05/07/2019 2:00p [facility] Nephrology Khloe Ramirez MD I12.0 Hyp chr kidney disease w stage 5 chr kidney disease or Esrd N18.5 Chronic kidney disease, stage 5 R60.9 Edema, unspecified D63.1 Anemia in chronic kidney disease N25.81 Secondary hyperparathyroidism of renal origin I12.9 Hypertensive chronic kidney disease w stg 1-4/unsp chr kdny Office Visit 04/03/2019 2:30p [facility] Nephrology Khloe Ramirez, I12.9 Hypertensive MD chronic kidney disease w stg 1-4/unsp chr kdny N18.3 Chronic kidney disease, stage 3 (moderate) R60.1 Generalized edema Office Visit 03/12/2019 10:05a [facility] Sade Vazquez, E11.22 Type 2 diabetes Assoc,pc mellitus w Hospitalists diabetic chronic kidney disease I10 Essential (primary) hypertension F32.9 Major depressive disorder, single episode, unspecified F43.10 Post-traumatic stress disorder, unspecified G89.29 Other chronic pain K29.70 Gastritis, unspecified, without bleeding W19.xxxA Unspecified fall, initial encounter Z74.2 Need for assist at home & no house memb able to render care Office Visit 03/11/2019 10:05a [facility] Graham Del Cid M54.2 Cervicalgia Assoc,magno Quiles M.D.,FACP Hospitalists N18.3 Chronic kidney disease, stage 3 (moderate) D64.9 Anemia, unspecified N39.0 Urinary tract infection, site not specified E11.22 Type 2 diabetes mellitus w diabetic chronic kidney disease Office Visit 03/07/2019 10:04a [facility] Graham Del Cid M54.2 Cervicalgia magno Gifford M.D.,FACP Hospitalists N18.3 Chronic kidney disease, stage 3 (moderate) D64.9 Anemia, unspecified N39.0 Urinary tract infection, site not specified Office Visit 03/04/2019 10:04a [facility] Monique Cerna, I10 Essential ( primary) magno Gifford MD hypertension Hospitalists N18.3 Chronic kidney disease, stage 3 (moderate) Office Visit 03/02/2019 10:03a [facility] Monique Cerna MD R29.6 Repeated falls magno Gifford Hospitalists E03.9 Hypothyroidism, unspecified N18.3 Chronic kidney disease, stage 3 (moderate) F32.9 Major depressive disorder, single episode, unspecified E11.22 Type 2 diabetes mellitus w diabetic chronic kidney disease I10 Essential (primary) hypertension I50.32 Chronic diastolic (congestive) heart failure Z86.711 Personal history of pulmonary embolism Office Visit 02/25/2019 [facility] Flakito R03.0 Elevated 10:03a magno Gifford M.D. blood-pressure Hospitalists reading, w/o diagnosis of htn Office Visit 02/23/2019 [facility] Flakito F32.9 Major depressive 10:02a magno Gifford [...] 06/29/2019 E11.9 Type 2 diabetes mellitus without KEVIN De Anda complications 06/29/2019 I10 Essential (primary) [...] Anemia in chronic kidney disease Ivy Shortle, [employer]GER 06/28/2019 N18.6 End stage renal disease Khloe Ramirez MD 06/28/2019 R09.02 Hypoxemia Ivy Shortle, [employer] MANAGER 06/28/2019 N18.6 End stage renal disease Ivy Shortle, [employer] MANAGER 06/28/2019 M25.551 Pain in right hip Ivy Shortle, [employer] MANAGER 06/28/2019 I10 Essential (primary) hypertension Ivy Shortle, [employer] MANAGER 06/28/2019 F32.9 Major depressive disorder, single Ivy Shortle, [employer] MANAGER episode, unspecified 06/28/2019 E11.9 Type 2 diabetes mellitus without Ivy Shortle, [employer] MANAGER complications 06/27/2019 N18.6 End stage renal disease Ivy Shortle, [employer] MANAGER 06/27/2019 N18.6 End stage renal disease Khloe Ramirez MD 06/27/2019 M25.551 Pain in right hip Ivy Shortle, [employer] MANAGER 06/27/2019 D63.1 Anemia in chronic kidney disease Khloe Ramirez MD 06/27/2019 I10 Essential (primary) hypertension Ivy Shortle, [employer] MANAGER 06/27/2019 F32.9 Major depressive disorder, single Ivyalexander Zamora, [employer]ETING MANAGER episode, unspecified 06/27/2019 E11.9 Type 2 diabetes mellitus without Ivy Zamora, [employer]ING MANAGER complications 06/26/2019 N18.6 End stage renal disease [...] PA-C complications 06/26/2019 E03.9 Hypothyroidism, unspecified Vanesa O'arslan, PA-C 06/22/2019 I12.0 Hypertensive chronic kidney disease [...] 5 Sade Vazquez MD 06/04/2019 R41.0 Disorientation, bhavnaified Kari Robb MD 06/04/2019 D64.9 Anemia, unspecified Sade [...] S72.001A Fracture of unspecified part of neck Elly Layton, D.O. of right femur, initial encounter for closed fracture 05/31/2019 R06.02 Shortness of breath Vishal Soriano, DO [facility] 05/31/2019 J96.01 Acute respiratory failure with hypoxia [...] 04/03/2019 N18.3 Chronic kidney disease, stage 3 Khleo Ramirez MD (moderate) 04/03/2019 R60.1 Generalized edema [...] disease Vicki,FACP 03/07/2019 M54.2 Cervicalgia Graham Quiles M.D.,FACP 03/07/2019 N18.3 Chronic kidney disease, stage 3 Graham Quiles (moderate) Vicki,FACP 03/07/2019 D64.9 Anemia, unspecified Graham Quiles M.D.,FACP 03/07/2019 N39.0 Urinary tract infection, site not Graham Quiles, cindi Cohen,FAC 03/04/2019 I10 Essential (primary) hypertension Monique Cerna [...]
[2019-08-30 16:22] LABS: Hematocrit 28 % (35-47); Hemoglobin 9.1 g/dL (12.0-16.0); Mean Corpuscular HGB Conc 32 g/dL (31-36); Mean Corpuscular Hemoglobin 27 pg (27-31); Mean Corpuscular Volume 85 fL (80-97); Mean Platelet Volume 6.6 fL (7.4-10.4); Platelet Count 437 10^3/uL (150-450); Red Blood Count 3.32 10^6 /uL (3.70-4.87); Red Cell Distribution Width 18 % (10-15); White Blood Count 24.6 10^3/uL (3.5-10.8)
[2019-08-30 16:37] LABS: Albumin 3.8 g/dL (3.2-5.2); BUN/Creatinine Ratio 9.5 (8-20); Calcium 8.8 mg/dL (8.6-10.3); EGFR African American 19.6 (>60); EGFR Non-African American 16.2 (>60); Globulin 3.9 g/dL (2-4); Potassium 4.1 mmol/L (3.5-5.0); Total Protein 7.7 g/dL (6.4-8.9)
[2019-08-30] MEDS ORDERED: Morphine 10 MG/ML VIAL (1 ml) IM ONE (16:57)
[2019-08-30 16:58] LABS: ABS Basophils 0.1 10^3/ul (0-0.2); ABS Eosinophils 0.1 10^3/ul (0-0.6); ABS Lymphocytes 0.2 10^3/ul (1.0-4.8); ABS Monocytes 0.3 10^3/ul (0-0.8); ABS Neutrophils 23.9 10^3/ul (1.5-7.7); Eosinophil % 0.3 %; Lymphocyte % 0.7 %; Microcytosis 1+; Polychromasia 1+
[2019-08-30] MEDS ORDERED: cefTRIAXone VIAL(*) 1,000 MG VIAL IM ONE (17:01)
[2019-08-30] MEDS ORDERED: Lidocaine 1% MPF ** 5 ML VIAL IM ONE (17:01)
[2019-08-30 17:12] LABS: C Reactive Protein 156.86 mg/L (<8.01)
[2019-08-30] MEDS: NS 0.9% 1000 ML** 1,000 ML IV ONE ×2 (17:47→18:49)
[2019-08-30 18:19] LABS: Urine Appearance Turbid; Urine Bilirubin Negative (Negative); Urine Blood 1+ (Negative); Urine Color Yellow; Urine Glucose 3+(>=500 mg/dL) (Negative); Urine Ketones Negative (Negative); Urine Nitrite Negative (Negative); Urine Protein 2+(100 mg/dL) (Negative); Urine Urobilinogen Negative (Negative)
[2019-08-30] MEDS ORDERED: HYDROmorphone INJ* 0.5 MG/0.5 ML SYRINGE IV ONE (18:22)
[2019-08-30 18:24] LABS: Urine Bacteria Absent (Absent); Urine Red Blood Cell 1+(3-5/hpf) (Absent); Urine Squamous Epithelial Cell Present (Absent); Urine White Blood Cell 3+(>20/hpf) (Absent)
[2019-08-30 19:11] LABS: Activated Partial Thrombo Time 26.6 seconds (26.0-38.0); INR 1.14 (0.82-1.09)
[2019-08-30 21:08] VITALS: BP 112/54
== END 2019-08-30 21:07 | disposition short-term general hospital (02) ==
LOC: ED 15:46
DX: A41.9 Sepsis, unspecified organism (principal); N39.0 Urinary tract infection, site not specified; R94.5 Abnormal results of liver function studies; E11.22 Type 2 diabetes mellitus with diabetic chronic kidney disease; I13.2 Hypertensive heart and chronic kidney disease with heart failure and with stage 5 chronic kidney disease, or end stage renal disease; I50.9 Heart failure, unspecified; N18.6 End stage renal disease; Z99.2 Dependence on renal dialysis; Z79.4 Long term (current) use of insulin; E78.00 Pure hypercholesterolemia, unspecified; Z86.711 Personal history of pulmonary embolism; Z79.82 Long term (current) use of aspirin; Z79.899 Other long term (current) drug therapy; Z79.890 Hormone replacement therapy; Z85.3 Personal history of malignant neoplasm of breast; Z87.891 Personal history of nicotine dependence; Z79.01 Long term (current) use of anticoagulants
CPT/HCPCS: 36415; 70450; 71045; 76705; 80053; 81003; 81015; 83605; 83690; 85025; 85610; 85730; 86140; 87040; 87077; 87086; 87186; 96361; 96372; 96374; 99285; J0696; J1170; J2270

== ENCOUNTER 2020-01-18 14:38 | Inpatient (IN) ==
[2020-01-18 15:25] LABS: ABS Basophils 0.1 10^3/ul (0-0.2); ABS Eosinophils 0.5 10^3/ul (0-0.6); ABS Lymphocytes 1.6 10^3/ul (1.0-4.8); ABS Monocytes 0.6 10^3/ul (0-0.8); ABS Neutrophils 6.4 10^3/ul (1.5-7.7); Hematocrit 33 % (35-47); Hemoglobin 11.3 g/dL (12.0-16.0); Lymphocyte % 17.4 %; Mean Corpuscular HGB Conc 35 g/dL (31-36); Mean Corpuscular Hemoglobin 32 pg (27-31); Mean Corpuscular Volume 92 fL (80-97); Mean Platelet Volume 7.1 fL (7.4-10.4); Platelet Count 342 10^3/uL (150-450); Red Blood Count 3.56 10^6 /uL (3.70-4.87); Red Cell Distribution Width 15 % (10-15); White Blood Count 9.2 10^3/uL (3.5-10.8)
[2020-01-18 15:48] LABS: ALT 28 U/L (7-52); AST 23 U/L (13-39); Albumin/Globulin Ratio 1.4 (1-3); Alkaline Phosphatase 156 U/L (34-104); Anion Gap 9 mmol/L (2-11); BUN/Creatinine Ratio 10.5 (8-20); Blood Urea Nitrogen 38 mg/dL (6-24); CO2 Carbon Dioxide 30 mmol/L (22-32); Calcium 9.4 mg/dL (8.6-10.3); Chloride 97 mmol/L (101-111); EGFR African American 14.7 (>60); EGFR Non-African American 12.2 (>60); Globulin 2.9 g/dL (2-4); Glucose 104 mg/dL (70-100); Potassium 4.1 mmol/L (3.5-5.0); Sodium 136 mmol/L (135-145); Total Protein 6.9 g/dL (6.4-8.9)
[2020-01-18 15:51] LABS: Acetaminophen < 15 mcg/mL; Alcohol, S < 10 mg/dL (<10); Salicylate < 2.50 mg/dL (<30)
[2020-01-19] MEDS: oxyCODONE/Acetamin 5/325 mg TAB PO PRN ×3 (00:30→15:48)
[2020-01-19] MEDS ORDERED: Dextrose 50% Syringe 50 ml 25 GM/50 ML SYRINGE IV PUSH PRN (03:45)
[2020-01-19] MEDS: Aspirin EC 81 mg TAB.EC (enteric coated) PO SCH (09:25)
[2020-01-19] MEDS: DULoxetine DR 30 mg CAP PO SCH (09:25)
[2020-01-19] MEDS: Polyethylene Glycol 3350 17 GM PACKET PO SCH (09:29)
[2020-01-19] MEDS: Lidocaine 2.5%/Prilocain 2.5% 5 GM TUBE TOPICAL SCH (10:28)
[2020-01-19 16:21] LABS: Urine Appearance Cloudy; Urine Bilirubin Negative (Negative); Urine Blood 2+ (Negative); Urine Color Yellow; Urine Glucose 1+(50 mg/dL) (Negative); Urine Ketones Negative (Negative); Urine Nitrite Negative (Negative); Urine Protein 3+(>=500 mg/dL) (Negative); Urine Specific Gravity 1.007 (1.010-1.030); Urine Urobilinogen Negative (Negative)
[2020-01-19 16:29] LABS: Urine Bacteria Absent (Absent); Urine Red Blood Cell 1+(3-5/hpf) (Absent); Urine Squamous Epithelial Cell Present (Absent); Urine White Blood Cell 3+(>20/hpf) (Absent)
[2020-01-19 16:38] LABS: Urine Benzodiazepine Screen None Detected (None Detect); Urine Cannabinoids Screen None Detected (None Detect); Urine Opiates Screen None Detected (None Detect)
[2020-01-19] MEDS: diPHENhydraMINE 25 mg TAB PO PRN (17:58)
[2020-01-19] MEDS: Insulin GLARGINE 100 un/ml 10 ml VIAL SUBCUT SCH (20:13)
[2020-01-20] MEDS: diPHENhydraMINE 25 mg TAB PO PRN ×2 (08:38→16:35)
[2020-01-20] MEDS: DULoxetine DR 30 mg CAP PO SCH (08:38)
[2020-01-20] MEDS: oxyCODONE/Acetamin 5/325 mg TAB PO PRN ×2 (08:39→16:35)
[2020-01-20] MEDS: Aspirin EC 81 mg TAB.EC (enteric coated) PO SCH (08:39)
[2020-01-20] MEDS: Polyethylene Glycol 3350 17 GM PACKET PO SCH (08:40)
[2020-01-20] MEDS: Insulin GLARGINE 100 un/ml 10 ml VIAL SUBCUT SCH (20:44)
[2020-01-21] MEDS: Aspirin EC 81 mg TAB.EC (enteric coated) PO SCH (08:20)
[2020-01-21] MEDS: DULoxetine DR 30 mg CAP PO SCH (08:20)
[2020-01-21] MEDS: Polyethylene Glycol 3350 17 GM PACKET PO SCH (08:21)
[2020-01-21] MEDS: oxyCODONE/Acetamin 5/325 mg TAB PO PRN (12:48)
[2020-01-21] MEDS ORDERED: Insulin GLARGINE 100 un/ml 10 ml VIAL SUBCUT SCH ×2 (21:00)
[2020-01-21] MEDS: Nystatin TOP POWDER 15 GM BTL TOPICAL SCH (21:45)
[2020-01-21] MEDS: diPHENhydraMINE 25 mg TAB PO PRN (22:29)
[2020-01-22] MEDS: oxyCODONE/Acetamin 5/325 mg TAB PO PRN ×2 (01:50→13:53)
[2020-01-22 07:34] VITALS: BP 157/57
[2020-01-22] MEDS: DULoxetine DR 30 mg CAP PO SCH (08:30)
[2020-01-22] MEDS: Aspirin EC 81 mg TAB.EC (enteric coated) PO SCH (08:31)
[2020-01-22] MEDS: Polyethylene Glycol 3350 17 GM PACKET PO SCH (08:31)
[2020-01-22] MEDS: Nystatin TOP POWDER 15 GM BTL TOPICAL SCH (08:40)
[2020-01-22] MEDS: Lidocaine 2.5%/Prilocain 2.5% 5 GM TUBE TOPICAL SCH (10:23)
[2020-01-22] MEDS ORDERED: Hydrocortisone 0.5% OINT 1 TUBE TOPICAL ONE (13:14)
== END 2020-01-22 15:05 | DRG 882 ==
LOC: ED 14:38 → OBSVTOIN 23:50 → MED 23:50 → INTOOBSV 23:50 → MED 01-19 00:23
PROVIDERS: ADMIT Internal Medicine; ATTEND Internal Medicine

== ENCOUNTER 2020-06-09 14:31 | Inpatient (IN) ==
[2020-06-09 19:28] LABS: Hematocrit 30 % (35-47); Mean Corpuscular HGB Conc 34 g/dL (31-36); Mean Corpuscular Hemoglobin 32 pg (27-31); Mean Corpuscular Volume 95 fL (80-97); Red Blood Count 3.15 10^6 /uL (3.70-4.87); Red Cell Distribution Width 14 % (10-15); White Blood Count 11.6 10^3/uL (3.5-10.8)
[2020-06-09 19:37] LABS: ALT 40 U/L (7-52); Albumin 4.5 g/dL (3.2-5.2); Albumin/Globulin Ratio 1.4 (1-3); Alkaline Phosphatase 163 U/L (34-104); CO2 Carbon Dioxide 18 mmol/L (22-32); Calcium 9.6 mg/dL (8.6-10.3); Chloride 97 mmol/L (101-111); EGFR African American 7.3 (>60); Globulin 3.3 g/dL (2-4); Glucose 94 mg/dL (70-100); Sodium 132 mmol/L (135-145); Total Protein 7.8 g/dL (6.4-8.9)
[2020-06-09 19:38] LABS: Anion Gap 17 mmol/L (2-11)
[2020-06-09 19:55] LABS: BUN/Creatinine Ratio 20.2 (8-20); Blood Urea Nitrogen 135 mg/dL (6-24)
[2020-06-09 20:14] LABS: ABS Basophils 0.1 10^3/ul (0-0.2); ABS Eosinophils 0.3 10^3/ul (0-0.6); ABS Lymphocytes 1.7 10^3/ul (1.0-4.8); ABS Monocytes 0.5 10^3/ul (0-0.8); ABS Neutrophils 8.9 10^3/ul (1.5-7.7); Eosinophil % 2.8 %; Nucleated Red Blood Cells % 0.1; Platelet Count Platelets clumped. 10^3/uL (150-450)
[2020-06-09 20:47] LABS: Potassium 5.8 mmol/L (3.5-5.0)
[2020-06-09 20:52] LABS: EGFR African American 7.2 (>60); EGFR Non-African American 5.9 (>60)
[2020-06-09 21:10] LABS: BUN/Creatinine Ratio 19.8 (8-20)
[2020-06-09] MEDS ORDERED: Dextrose 50% Syringe 50 ml 25 GM/50 ML SYRINGE IV PUSH PRN (23:34)
[2020-06-10] MEDS ORDERED: fentaNYL PATCH 12 MCG/HR 1 PATCH TRANSDERM SCH (02:00)
[2020-06-10] MEDS ORDERED: hydrALAZINE 20 mg/ml 1 ML Vial IV IV SLOW PU ONE (02:19)
[2020-06-10] MEDS: Insulin GLARGINE 100 un/ml 10 ml VIAL SUBCUT SCH ×2 (02:29→21:59)
[2020-06-10 05:35] LABS: ABS Basophils 0.1 10^3/ul (0-0.2); ABS Eosinophils 0.4 10^3/ul (0-0.6); ABS Lymphocytes 1.9 10^3/ul (1.0-4.8); ABS Monocytes 0.8 10^3/ul (0-0.8); Eosinophil % 3.5 %; Hematocrit 30 % (35-47); Hemoglobin 9.9 g/dL (12.0-16.0); Mean Corpuscular HGB Conc 33 g/dL (31-36); Mean Corpuscular Hemoglobin 32 pg (27-31); Mean Corpuscular Volume 96 fL (80-97); Platelet Count 307 10^3/uL (150-450); Red Blood Count 3.15 10^6 /uL (3.70-4.87); Red Cell Distribution Width 14 % (10-15); White Blood Count 11.2 10^3/uL (3.5-10.8)
[2020-06-10 06:00] LABS: Calcium 9.1 mg/dL (8.6-10.3)
[2020-06-10 06:05] LABS: BUN/Creatinine Ratio 19.1 (8-20); EGFR African American 7.2 (>60); EGFR Non-African American 5.9 (>60)
[2020-06-10] MEDS: fentaNYL Patch Check Q Shift NOTE FOLLOW UP SCH ×2 (06:48→19:30)
[2020-06-10 11:31] LABS: Hepatitis B Surface Antigen Nonreactive (Nonreactive)
[2020-06-10] MEDS: DULoxetine DR 30 mg CAP PO SCH (11:33)
[2020-06-10] MEDS: Polyethylene Glycol 3350 17 GM PACKET PO SCH (11:33)
[2020-06-10] MEDS: Cholecalciferol (VIT D3) 1,000 unit TAB PO SCH (11:33)
[2020-06-10] MEDS: Aspirin EC 81 mg TAB.EC (enteric coated) PO SCH (11:34)
[2020-06-10 11:48] LABS: Hepatitis B Surface Ab Not Immune (Immune)
[2020-06-11 05:58] LABS: ABS Basophils 0.1 10^3/ul (0-0.2); ABS Eosinophils 0.3 10^3/ul (0-0.6); ABS Lymphocytes 1.8 10^3/ul (1.0-4.8); ABS Monocytes 0.8 10^3/ul (0-0.8); ABS Neutrophils 7.8 10^3/ul (1.5-7.7); Eosinophil % 2.5 %; Hematocrit 27 % (35-47); Lymphocyte % 16.4 %; Mean Corpuscular HGB Conc 34 g/dL (31-36); Mean Corpuscular Hemoglobin 32 pg (27-31); Mean Corpuscular Volume 94 fL (80-97); Mean Platelet Volume 7.3 fL (7.4-10.4); Platelet Count 277 10^3/uL (150-450); Red Blood Count 2.83 10^6 /uL (3.70-4.87); Red Cell Distribution Width 13 % (10-15); White Blood Count 10.7 10^3/uL (3.5-10.8)
[2020-06-11 06:18] LABS: BUN/Creatinine Ratio 18.9 (8-20); Calcium 8.9 mg/dL (8.6-10.3); EGFR African American 8.6 (>60); EGFR Non-African American 7.1 (>60)
[2020-06-11] MEDS: fentaNYL Patch Check Q Shift NOTE FOLLOW UP SCH (07:00)
[2020-06-11] MEDS ORDERED: NS 0.9% 500 ml BAG 500 ML IV PRN (07:23)
[2020-06-11] MEDS ORDERED: ALBUMIN HUMAN 25% IV PRN (07:25)
[2020-06-11] MEDS ORDERED: Prochlorperazine 5 mg/ml 2 ml VIAL (10 mg) IV PRN (10:47)
[2020-06-11] MEDS: DULoxetine DR 30 mg CAP PO SCH ×2 (13:08→13:11)
[2020-06-11] MEDS: Cholecalciferol (VIT D3) 1,000 unit TAB PO SCH ×2 (13:09→13:11)
[2020-06-11] MEDS: Aspirin EC 81 mg TAB.EC (enteric coated) PO SCH ×2 (13:09→13:14)
[2020-06-11] MEDS: Polyethylene Glycol 3350 17 GM PACKET PO SCH ×2 (13:10→13:15)
[2020-06-11 16:53] VITALS: BP 141/53
== END 2020-06-11 17:30 | DRG 700 ==
LOC: ED 14:31 → SSU 14:31
PROVIDERS: ADMIT Student in an Organized Health Care Education/Training Program; ATTEND Hospitalist